=== PATIENT | female | born 1945 | race Caucasian/White ===

== ENCOUNTER 2021-12-25 14:02 | Outpatient (CLI) | payer MEDICARE, OTHER, SELFPAY ==
--- NOTE | 2021-12-25 14:00 | CRLHL7_ITS ---
For Patients: As a result of the Century Cures Act, medical imaging exams and procedure reports are released immediately into your electronic medical record. You may view this report before your referring provider. If you have questions, please contact your health care provider. INDICATION: Swelling of right arm. TECHNIQUE: Ultrasound venous duplex upper right extremity. Compression venous exam was performed using bain-scale, color Doppler, and spectral Doppler imaging. COMPARISON: None. FINDINGS: The right internal jugular, subclavian, and axillary veins are patent with normal waveforms. The brachial, basilic, and cephalic veins are fully compressible. No soft tissue abnormalities. IMPRESSION: No DVT of the right upper extremity veins. Dictated by Nitish Bryson MD @ 12/25/2021 3:24:41 PM (Electronically Signed)
--- OUTSIDE RECORDS SUMMARY | 2021-12-25 14:06 | XMS_ITS ---
:1945 Author Care Team Providers Name Role Phone Zhen Galicia Primary Care Provider Unavailable Allergies None recorded. Medications Name Status Start Date Stop Date ? ? alendronate 70 mg tablet Active ? Not yuval ilable atenolol 25 mg tablet Active ? Not availa ble cephalexin 500 mg capsule Active ? Not av ailable cevimeline 30 mg capsule Active ? Not yuval ilable clopidogrel 75 mg tablet Active ? Not yuval ilable Flublok Quad 2819-9874 (PF) 180 mcg (45 mcg x 4)/0.5 mL IM Activ e ? Not available syringe gabapentin 600 mg tablet Active ? Not yuval ilable lansoprazole 30 mg capsule,delayed release Active ? Not available losartan 25 mg tablet Active ? Not availa ble metformin 500 mg tablet Active ? Not avai lable prednisolone acetate 1 % eye drops,suspension Active ? Not available rosuvastatin 40 mg tablet Active ? Not av ailable Problems None recorded. Procedures None recorded. Results Lab Results None recorded. Past Encounters None recorded. Social History None recorded. Vaccine List None recorded. Plan of Care Reminders Provider Appointments None recorded. ? ? Lab None recorded. ? ? Referral None recorded. ? ? Procedures None recorded. ? ? Surgeries None recorded. ? ? Imaging None recorded. ? ? Vitals None recorded.
--- OUTSIDE RECORDS SUMMARY | 2021-12-25 14:06 | XMS_ITS | Clinical Summary ---
:1945 Author Organization [facility] Address [address] [place] [address] Care Team Providers Name Role Phone Jr Landeros MD Primary Care Provider [phone] Jr Landeros MD Unavailable Allergies Active Allergy Reactions Severity Noted Date Comments Atorvastatin Other (See Comments) 12/10/2015 Facial swelling Latex Hives, Itching 11/13/2005 Bandaids and other contact Lisinopril Cough 12/07/2015 Sulfa Drugs Hives 11/13/2005 Medications Medication Sig Dispensed Refills Start Date End Date Status ASPIRIN 81 MG OR 1 TABLET DAILY 0 Active TABSIndications: Unspecified cardiovascular disease, Mixed hyperlipidemia MUCINEX MAXIMUM 1 TABLET EVERY 28 0 08/10/2007 Active STRENGTH 1200 MG OR 12 HOURS [id number]: NEEDED Bronchitis acute ACCU-CHEK MULTICLIX TEST 1-2 TIMES 200 Each 0 08/16/2009 Active LANCETS DAILY MISCIndications: Type 2 diabetes, HbA1c goal < 7% (H) Blood Glucose 1 Bottle by In 1 Bottle 0 03/01/2012 Active Calibration (ACCU-CHEK Vitro route STEPHEN) SOLNIndications: daily as Type 2 diabetes, HbA1c needed. goal < 7% (H) Blood Glucose Use to test 1 kit 0 03/03/2012 Act efra Monitoring Suppl blood sugars (ACCU-CHEK STEPHEN PLUS) once daily as W/DEVICE directed. KITIndications: Type 2 diabetes, HbA1c goal < 7% (H) Glucose Blood 1 strip by In 100 strip 3 03/05/2012 A ctive (ACCU-CHEK STEPHEN) Vitro route STRPIndications: Type 2 daily as diabetes, HbA1c goal < needed. 7% (H) LANsoprazole (PREVACID) Take 2 capsules 180 capsule 1 07/17/19 13 Active 15 MG by mouth daily. capsuleIndications: Gastritis losartan (COZAAR) 25 MG Take 1 tablet 90 tablet 0 12/02/2012 Active tabletIndications: Type (25 mg) by 2 diabetes mellitus mouth daily with proteinuria or microalbuminuria, Unspecified cardiovascular disease atenolol (TENORMIN) 25 Take 1 tablet 180 tablet 0 12/14/2012 Active MG tabletIndications: (25 mg) by Unspecified mouth 2 times cardiovascular disease daily metFORMIN Take 2 tablets 180 tablet 0 01/10/2013 Act efra (GLUCOPHAGE-XR) 500 MG by mouth. Two 24 hr DAILY WITH MEAL tabletIndications: Type 2 diabetes, HbA1c goal < 7% (H) pravastatin (PRAVACHOL) Take 1 tablet 90 tablet 0 01/25/2013 Active 40 MG (40 mg) by tabletIndications: mouth daily Hyperlipidemia LDL goal <100 alendronate (FOSAMAX) Take 70 mg by 0 10/11/2019 Active 70 MG tablet mouth cevimeline (EVOXAC) 30 0 04/10/2020 Active MG capsule cholecalciferol 25 MCG Take 1 tablet 0 10/11/2019 Active (1000 UT) TABS by mouth daily gabapentin (NEURONTIN) 600 mg by mouth 180 tablet 3 06/03/2021 Active 600 MG twice per day. tabletIndications: Pain of right upper arm Active Problems Problem Noted Date Status post insertion of drug-eluting stent into left anterior descending 05/24/2021 (LAD) artery for coronary artery disease Sjogren's syndrome 04/06/2019 Advanced directives, counseling/discussion 10/22/2010 Overview: Formatting of this note is dif ferent from the original. Advance Directive Problem List Overview: Name Relationship Phone Primary Health Care Agent Alternative Health Care Agent Patient states has Advance Directive and will bring in a copy to clinic. 10/22/2010 Type 2 diabetes, HbA1c goal < 7% 06/07/2009 Overview: BP 126/76 06/17/2009 GLC 145 06/05/2009 A1C 7.9 06/05/2009 LDL 94 06/05/2009 MICROL 67 06/05/2009 MICROALBUMIN 41.10 06/05/2009 HYPERLIPIDEMIA LDL GOAL <100 04/11/2009 Hereditary and idiopathic peripheral neuropathy 2006 Overview: Chemotherapy related ; breast cancer 199 8 and 2001- more so after second round Problem list name updated by automated p rocess. 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 Hypertensive kidney disease, stage 1 08/23/2002 Personal history of malignant neoplasm of breast Overview: Mastectomy and chemotherapy; Recurrence 2001; Chemo and radiation; Tamoxifen, now Arimedex; followed at [facility] Cardiovascular disease Overview: PTCA- age 42 Problem list name updated by automated p rocess. Provider to review Osteoporosis Overview: Fosamax Problem list name updated by automated p rocess. Provider to review Resolved Problems Problem Noted Date Resolved Date Type 2 diabetes, HbA1C goal < 8% 12/30/2009 010 Mixed hyperlipidemia 06/05/2009 Overview: Statin; Pravachol; Low HDL Immunizations Name Administration Dates Next Due Influenza (H1N1) 03/12/2009 Influenza (High Dose) 3 valent 12/10/2017, 12/23/2016, 12/16, vaccine 12/26/2013, 12/08/2013, 12/20/2012 Influenza (IIV3) PF 11/10/2011, 11/13/2010, 12/14/2009, 12/21/2007, 12/31/2006, 12/18/2005, 11/30/2005 Influenza Quad, Recombinant, pf(RIV4) 12/24/2018 (Flublok) Influenza, Quad, High Dose, Pf, 65yr+ 12/26/2020, 12/15/2019 (Fluzone HD) Pneumo Conj 13-V (2010&after) 03/09/2015 Pneumococcal 23 valent 12/10/2017, 04/08/2011, 12/19/2008 TD (ADULT, 7+) 04/13/2018, 05/31/2005, 04/23/2005 Tdap (Adacel,Boostrix) 01/09/2012, 08/10/2007 Zoster vaccine recombinant adjuvanted 03/30/2018, 12/10/2017 (SHINGRIX) Zoster vaccine, live 04/08/2011, 05/24/2008 Family History Medical History Relation Comments Spencer Brother Heart Disease Brother from a heart at [facility], [place]. Father Hypertension Father Cancer Maternal Grandfather unknown etiology Cancer Maternal Grandmother unknown etiology Respiratory Mother copd Cerebrovascular Disease Paternal Grandfather Relation Status Comments Brother (Age 27) Father (Age 58) Maternal Grandfather Maternal Grandmother Mother (Age 80) Paternal Grandfather Social History Tobacco Use Types Packs/Day Years Used Date Smoking Tobacco: Former Cigarettes Quit : 05/14/1988 Smokeless Tobacco: Never Tobacco Cessation: Counseling Given: No Alcohol Use Standard Drinks/Week Comments No 0 (1 standard drink = 0.6 oz pure alcoho l) Sex Assigned at Date Recorded Female 05/22/2021 3:03 PM CDT Last Filed Vital Signs Vital Sign Reading Time Taken Comments Blood Pressure 166/90 08/01/2021 12:01 PM CDT Pulse 66 08/01/2021 12:00 PM CDT Temperature 37.2 ??C (99 ??F) 08/01/2021 12:00 PM CDT Respiratory Rate 18 08/01/2021 12:00 PM CDT Oxygen Saturation 100% 08/01/2021 12:00 PM CDT Inhaled Oxygen Concentration - - Weight 71.2 kg (157 lb) 05/24/2021 7:59 AM CDT Height 165.1 cm (5' 5) 05/24/2021 7:59 AM CDT Body Mass Index 26.13 05/24/2021 7:59 AM CDT Plan of Treatment Health Maintenance Due Date Last Done Comments CT COLONOGRAPHY 1945 FIT-DNA (Cologuard) 1945 FIT 1945 FLEX SIG 1945 HEPATITIS C SCREENING 09/29/1963 MEDICARE ANNUAL WELLNESS 10/23/2011 10/22/2010, 06/05/2009, VISIT 05/24/2008, Additional history exists DIABETIC FOOT EXAM 07/13/2012 07/14/2011 COLONOSCOPY 08/22/2012 08/22/2002 COLORECTAL CANCER SCREENING 08/22/2012 A1C 10/10/2012 04/12/2012, 12/31/2011, 05/05/2011, Additional history exists MAMMO SCREENING 12/14/2012 12/15/2011, 11/05/2010, 07/05/2008, Additional history exists FALL RISK ASSESSMENT 12/30/2012 12/31/2011 BMP 04/12/2013 04/12/2012, 12/31/2011, 05/05/2011, Additional history exists LIPID 04/12/2013 04/12/2012, 12/31/2011, 05/05/2011, Additional history exists MICROALBUMIN 04/12/2013 04/12/2012, 12/31/2011, 05/05/2011, Additional history exists EYE EXAM 10/18/2013 10/18/2012, 08/19/2010 ADVANCE CARE PLANNING 10/23/2015 10/22/2010 COVID-19 Vaccine (4 - 01/25/2021 11/30/2020, 05/11/2020, Booster for Moderna series) 04/13/2020 PHQ-2 (once per calendar 03/02/2021 year) INFLUENZA VACCINE (#1) 2021 12/26/2020, 12/15/2019, 12/24/2018, Additional history exists ANNUAL REVIEW OF HM ORDERS 05/24/2022 05/24/2021 DEXA 07/06/2023 07/05/2008, 02/04/2006 DTAP/TDAP/TD IMMUNIZATION 04/13/2028 04/13/2018, 01/09/2012 , (6 - Td or Tdap) 08/10/2007, Additional history exists URINALYSIS Completed 12/31/2011 Pneumococcal Vaccine: 65+ Completed 12/10/2017, 03/09/2015 , Years 04/08/2011, Additional history exists ZOSTER IMMUNIZATION Completed 03/30/2018, 12/10/2017, 04/08/2011, Additional history exists IPV IMMUNIZATION Aged Out No longer eligi ble based on patient 's age to complete this topic MENINGITIS IMMUNIZATION Aged Out No longe r eligible based on patient 's age to complete this topic Insurance Payer Benefit Plan Subscriber ID Effective Phone Address Typ e / Group Dates ARY/KAYLA ROSA FOR [id number] 2010-Prese [phone] FOR Indemnity [place] LIFE nt 04 LIFE [address] [place] [address] MEDICARE MEDICARE [id number] 2010-Prese [phone] ATTN SHELIADwaine MS Medicare nt 40 [address] [place] [address] Care Teams Binder Chainstitch Relationship Specialty Start Date End Date Jr Landeros MD PCP - General Internal Medicine 05/24/21 [address] [place] [address] Jr Landeros MD Assigned PCP 05/26/21 [address] [place], [place] [id number]
--- OUTSIDE RECORDS SUMMARY | 2021-12-25 14:06 | XMS_ITS | Continuity of Care Document ---
:1945 Author Organization [facility] Address [address] [place] [id number] Care Team Providers Name Role Phone NO FAMILY, PHYSICIAN PER PATIENT Primary Care Physician Unav ailable Encounter Date(s): 12/22/21 - 12/22/[address] [address] Encounter Diagnosis Cellulitis (Discharge Diagnosis) - 12/22/21 Discharge Disposition: Home or Self Care Attending Physician: ROBBIE WITT MD Admitting Physician: ROBBIE WITT MD Allergies, Adverse Reactions, Alerts Substance Reaction Severity Status Latex Mild Active sulfa drugs Mild Active Normal Saline Flush Mild Active Medications doxycycline hyclate 100 mg oral capsule 100 mg = 1 caps, Oral, BID, X 10 days, # 20 caps, 0 Refill(s), Pharmacy: [id number], 165,cm, 12/22/21 9:20:00 MDT, Height/Length Dosing, 65.7, kg, 12/22/21 9:20:00 MDT, Weight Dosing Start Date: 12/22/21 Stop Date: 01/01/22 Status: Ordered Problem List Diagnosis Diagnosis Type Effective Dates Health Status Clinical Serv ice Informant Cellulitis Discharge 12/22/21 Non-Specified Diagnosis Vital Signs Most recent to oldest [Reference Range]: 1 2 Temperature Temporal Artery [36.3-37.8 DegC] 36.9 DegC 36 DegC (12/22/21 10:27 AM) *LOW* (12/22/21 9:20 AM) Peripheral Pulse Rate [60-100 bpm] 80 bpm 67 bp m (12/22/21 10:27 AM) (12/22/21 9:20 AM) Respiratory Rate [14-20 br/min] 18 br/min 18 br/mi n (12/22/21 10:27 AM) (12/22/21 9:20 AM) Blood Pressure [90-140/60-90 mmHg] 130/78 mmHg 143/5 9 mmHg (12/22/21 10:27 AM) *HI* (12/22/21 9:20 AM) Social History Social History Type Response Smoking Status Never (less than 100 in life time) entered on: 12/22/21 Sex Female Patient Care team information PersonnelName: NO FAMILY, PHYSICIAN PER PATIENT
--- OUTSIDE RECORDS SUMMARY | 2021-12-25 14:06 | XMS_ITS | Encounter Summary ---
:1945 Author Organization [facility] Address [address] [place] [address] Care Team Providers Name Role Phone Jr Landeros MD Primary Care Provider [phone] Jr Landeros MD Unavailable Encounter Details Date Type Department Care Team Description 08/01/2021 Travel Social History Tobacco Use Types Packs/Day Years Used Date Smoking Tobacco: Former Cigarettes Quit : 05/14/1988 Smokeless Tobacco: Never Alcohol Use Standard Drinks/Week Comments No 0 (1 standard drink = 0.6 oz pure alcoho l) Sex Assigned at Date Recorded Female 05/22/2021 3:03 PM CDT COVID-19 Exposure Response Date Recorded In the last 10 days, have you been in contact with No / Unsu re 08/01/2021 11:51 AM CDT someone who was confirmed or suspected to have Coronavirus/COVID-19? documented as of this encounter Plan of Treatment Not on filedocumented as of this encounter Visit Diagnoses Not on filedocumented in this encounter Care Teams Track Helper Relationship Specialty Start Date End Date Jr Landeros MD PCP - General Internal Medicine 05/24/[address] [place] [address] Jr Landeros MD Assigned PCP 05/26/[address] [id number] documented as of this encounter
--- OUTSIDE RECORDS SUMMARY | 2021-12-25 14:07 | XMS_ITS | Encounter Summary ---
:1945 Author Organization [facility] Address [address] [place] [address]. [place] [address] Care Team Providers Name Role Phone Tiffany Leonard MD Primary Care Provider [phone] Reason for Visit Rehab Therapy Cardiac Therapy (Routine) - Closed Specialty Diagnoses / Procedures Referred By Contact Refer red To Contact CARDIAC REHAB Diagnoses Medicare// NAY Requested order/recs [facility] Procedures EVALUATION [address] [facility] [address] [place] [address] Phone: Fax: Referral ID Status Reason Start Date Expiration Date Visits V isits Requested Authorized FR -CR Closed 12/18/2015 03/01/2016 36 36 ([id number]) Encounter Details Date Type Department Care Team Description 12/24/2015 Hospital Encounter [facility] Cardiac Big , Alex Mas MD [address] [facility] [address] [place] [address] and Pulmonary 1, Rh Cardiac Rehab Rehabilitation [facility] [address] [facility] [address] [place] [address] Social History Tobacco Use Types Packs/Day Years Used Date Smoking Tobacco: Former Cigarettes Quit : 05/14/1988 Smokeless Tobacco: Never Alcohol Use Standard Drinks/Week Comments No 0 (1 standard drink = 0.6 oz pure alcoho l) Sex Assigned at Date Recorded Female 05/22/2021 3:03 PM CDT documented as of this encounter Medications at Time of Discharge Medication Sig Dispensed Refills Start Date End Date ACCU-CHEK MULTICLIX TEST 1-2 TIMES 200 Each 0 08/16/2009 LANCETS MISCIndications: DAILY Type 2 diabetes, HbA1c goal < 7% (H) ASPIRIN 81 MG OR 1 TABLET DAILY 0 TABSIndications: Unspecified cardiovascular disease, Mixed hyperlipidemia atenolol (TENORMIN) 25 MG Take 1 tablet (25 180 tablet 0 tabletIndications: mg) by mouth 2 Unspecified times daily cardiovascular disease Blood Glucose Calibration 1 Bottle by In 1 Bottle 0 2011 (ACCU-CHEK STEPHEN) Vitro route daily SOLNIndications: Type 2 as needed. diabetes, HbA1c goal < 7% (H) Blood Glucose Monitoring Use to test blood 1 kit 0 04/2012 Suppl (ACCU-CHEK STEPHEN sugars once daily PLUS) W/DEVICE as directed. KITIndications: Type 2 diabetes, HbA1c goal < 7% (H) Glucose Blood (ACCU-CHEK 1 strip by In 100 strip 3 03/05/19 13 STEPHEN) STRPIndications: Vitro route daily Type 2 diabetes, HbA1c as needed. goal < 7% (H) LANsoprazole (PREVACID) Take 2 capsules by 180 capsule 1 15 MG capsuleIndications: mouth daily. Gastritis losartan (COZAAR) 25 MG Take 1 tablet (25 90 tablet 0 12/02 tabletIndications: Type 2 mg) by mouth daily diabetes mellitus with proteinuria or microalbuminuria, Unspecified cardiovascular disease metFORMIN (GLUCOPHAGE-XR) Take 2 tablets by 180 tablet 0 12/2012 500 MG 24 hr mouth. Two DAILY tabletIndications: Type 2 WITH MEAL diabetes, HbA1c goal < 7% (H) MUCINEX MAXIMUM STRENGTH 1 TABLET EVERY 12 28 0 07/31 1200 MG OR HOURS NEEDED [id number]: Bronchitis acute pravastatin (PRAVACHOL) Take 1 tablet (40 90 tablet 0 01/25 40 MG tabletIndications: mg) by mouth daily Hyperlipidemia LDL goal <100 ciprofloxacin (CIPRO) 500 Take 1 tablet by 6 tablet 0 12/0205/24/2021 MG tabletIndications: mouth 2 times Hemorrhagic cystitis daily. gabapentin (NEURONTIN) Take 3 tablets by 270 tablet 3 201106/03/2021 600 MG tabletIndications: mouth. Take 1 Unspecified hereditary tablet at noon and and idiopathic peripheral 2 at Bedtime neuropathy documented as of this encounter Plan of Treatment Not on filedocumented as of this encounter Visit Diagnoses Not on filedocumented in this encounter Care Teams Mental Hygiene Consultant Relationship Specialty Start Date End Date Tiffany Leonard MD PCP - General 04/16/01 05/23/21 documented as of this encounter
--- OUTSIDE RECORDS SUMMARY | 2021-12-25 14:07 | XMS_ITS | Encounter Summary ---
:1945 Author Organization [facility] Address [address] [place] [address]. [place] [address] Care Team Providers Name Role Phone Tiffany Leonard MD Primary Care Provider [phone] Reason for Visit Rehab Therapy Cardiac Therapy (Routine) - Closed Specialty Diagnoses / Procedures Referred By Contact Refer red To Contact CARDIAC REHAB Diagnoses Medicare// NAY Requested order/recs [facility] Procedures EVALUATION [address] [facility] [address] [place] [address] Phone: Fax: Referral ID Status Reason Start Date Expiration Date Visits V isits Requested Authorized FR -CR Closed 12/18/2015 03/01/2016 36 36 ([id number]) Encounter Details Date Type Department Care Team Description 01/21/2016 Hospital Encounter [facility] Cardiac Big , Alex Mas MD [address] [facility] [address] [facility] [address] [place] [address] and Pulmonary 1, Rh Cardiac Rehab Rehabilitation [facility] [address] [facility] [address] [place] [address] Social History Tobacco Use [...] 0 07/31 1200 MG OR HOURS NEEDED [id number]: Bronchitis acute pravastatin (PRAVACHOL) Take 1 tablet [...] on filedocumented in this encounter Care Teams Snath Handle Assembler Relationship Specialty Start Date End Date Tiffany Leonard MD PCP - General 04/16/01 05/23/21 documented as of this encounter
--- OUTSIDE RECORDS SUMMARY | 2021-12-25 14:07 | XMS_ITS | Encounter Summary ---
:1945 Author Organization [facility] Address [address] [place] [address] Care Team Providers Name Role Phone Jr Landeros MD Primary Care Provider [phone] Reason for Visit Reason Comments Musculoskeletal Problem right Encounter Details Date Type Department Care Team Description 05/24/2021 Office Visit [facility] Jr Landeros Monica n of right upper Clinic Darrian [place] MD arm (Primary Dx) [address] [place] [address] [phone] Social History Tobacco Use Types Packs/Day Years Used Date Smoking Tobacco: Former Cigarettes Quit : 05/14/1988 Smokeless Tobacco: Never Tobacco Cessation: Counseling Given: No Alcohol Use Standard Drinks/Week Comments No 0 (1 standard drink = 0.6 oz pure alcoho l) Sex Assigned at Date Recorded Female 05/22/2021 3:03 PM CDT COVID-19 Exposure Response Date Recorded In the last month, have you been in contact with No / Unsure 05/24/2021 7:37 AM CDT someone who was confirmed or suspected to have Coronavirus / COVID-19? documented as of this encounter Last Filed Vital Signs Vital Sign Reading Time Taken Comments Blood Pressure 140/79 05/24/2021 7:59 AM CDT Pulse 66 05/24/2021 7:59 AM CDT Temperature 36.8 ??C (98.2 ??F) 05/24/2021 7:59 AM CDT Respiratory Rate 20 05/24/2021 7:59 AM CDT Oxygen Saturation 98% 05/24/2021 7:59 AM CDT Inhaled Oxygen Concentration - - Weight 71.2 kg (157 lb) 05/24/2021 7:59 AM CDT Height 165.1 cm (5' 5) 05/24/2021 7:59 AM CDT Body Mass Index 26.13 05/24/2021 7:59 AM CDT documented in this encounter Patient Instructions Patient InstructionsCuJr carson MD - 05/24/2021 8:00 AM CDT Suspected muscular strain of lumbar extremity. We did elect proceed with conservative management at this time. Patient did defer any imaging. documented in this encounter Progress Notes Jr Landeros MD - 05/24/2021 8:00 AM CDT Assessment & Plan Pain of right upper arm At this time, patient has pain that is reproducible just distal to her right shoulder joint when abducting greater than 45 degrees. The remainder of her examination of her right shoulder and right upper extremity was unremarkable. I suspect that she has likely suffered a muscular strain as she does report that she has been doing continued exercises that she was taught in physical therapy for management of chronic right shoulder pain. Patient did express a concern that the pain in her arm could be related to metastatic disease. I did discuss with her that I have a low suspicion for this given that her pain is not constant and is only triggered by certain movements. Patient did decline any imaging at this time. We did like to proceed with a conservative treatment plan of heat over the affected extremity and the use of Tylenol for management of her discomfort. Patient will follow up in 2 weeks if her symptoms are not improving. 30 minutes spent on the date of the encounter doing chart review, history and exam, documentation and further activities per the note BMI: Estimated body mass index is 26.13 kg/m?? as calculated from the following: Height as of this encounter: 1.651 m (5' 5). Weight as of this encounter: 71.2 kg (157 lb). See Patient Instructions Return in about 2 weeks (around 06/07/2021), or if symptoms worsen or fail to improve. Jr Landeros MD [facility] is a 75 year old who presents for the following health issues: right arm pain Patient is a 75-year-old female who presents to the clinic with chief complaint of arm pain. She is previously known to me from a prior clinic. Patient has a history of lymphedema in her right arm that has been present since she did undergo a prior surgery related to treatment of breast cancer. She reports over the last 3 weeks she has had some pain located in the mid humeral region of her right arm. Her pain is not constant, and she does not recall any traumatic event or injury that triggered her discomfort. Her pain is exacerbated when trying to lift her arm up to shoulder level. She denies any numbness or tingling in the affected extremity. Patient has had no change in her lymphedema. She does state that it typically waxes and wanes. Patient is no longer using any compression wraps for treatment of this particular issue. She has not taken any medication for management of her discomfort. Her pain is nonradiating. Musculoskeletal Problem Associated symptoms include arthralgias. Review of Systems Constitutional: Negative. HENT: Negative. Respiratory: Negative. Cardiovascular: Positive for peripheral edema. Gastrointestinal: Negative. Genitourinary: Negative. Musculoskeletal: Positive for arthralgias. Skin: Negative. Neurological: Negative. Objective Blood pressure (!) 140/79, pulse 66, temperature 98.2 ??F (36.8 ??C), resp. rate 20, height 1.651 m (5' 5), weight 71.2 kg (157 lb), SpO2 98 %, not currently . Physical Exam Vitals and nursing note reviewed. Constitutional: Appearance: Normal appearance. HENT: Head: Normocephalic and atraumatic. Right Ear: Tympanic membrane, ear canal and external ear normal. Left Ear: Tympanic membrane, ear canal and external ear normal. Mouth/Throat: Mouth: Mucous membranes are moist. Pharynx: Oropharynx is clear. Eyes: Extraocular Movements: Extraocular movements intact. Conjunctiva/sclera: Conjunctivae normal. Pupils: Pupils are equal, round, and reactive to light. Cardiovascular: Rate and Rhythm: Normal rate and regular rhythm. Pulses: Normal pulses. Heart sounds: Normal heart sounds. Pulmonary: Effort: Pulmonary effort is normal. Breath sounds: Normal breath sounds. Abdominal: General: Bowel sounds are normal. Palpations: Abdomen is soft. Musculoskeletal: Right shoulder: Decreased range of motion (Pain associated with abduction greater than 45 degrees). Left shoulder: Normal. Skin: General: Skin is warm. Capillary Refill: Capillary refill takes less than 2 seconds. Neurological: General: No focal deficit present. Mental Status: She is alert and oriented to person, place, and time. Mental status is at baseline. documented in this encounter Plan of Treatment Not on filedocumented as of this encounter Visit Diagnoses Diagnosis Pain of right upper arm - Primary Pain in limb documented in this encounter Care Teams Watch Crystal Edge Grinder Relationship Specialty Start Date End Date Jr Landeros MD PCP - General Internal Medicine 05/24/21 [place] [address] documented as of this encounter
--- OUTSIDE RECORDS SUMMARY | 2021-12-25 14:07 | XMS_ITS | Encounter Summary ---
:1945 Author Organization [facility] Address [address] [place] [address]. [place] [address] Care Team Providers Name Role Phone Tiffany Leonard MD Primary Care Provider [phone] Reason for Visit Rehab Therapy Cardiac Therapy (Routine) - Closed Specialty Diagnoses / Procedures Referred By Contact Refer red To Contact CARDIAC REHAB Diagnoses Medicare// NAY Requested order/recs [facility] Procedures EVALUATION [address] [facility] [address] [place] [address] Phone: Fax: Referral ID Status Reason Start Date Expiration Date Visits V isits Requested Authorized FR -CR Closed 12/18/2015 03/01/2016 36 36 ([id number]) Encounter Details Date Type Department Care Team Description 01/09/2016 Hospital Encounter [facility] Cardiac Big , Alex Mas MD [address] [facility] [address] [place] [address] and Pulmonary 1, Rh Cardiac Rehab Rehabilitation [facility] [address] [facility] [address] [place] [address] Social History Tobacco Use [...] 0 07/31 1200 MG OR HOURS NEEDED [id number]: Bronchitis acute pravastatin (PRAVACHOL) Take 1 tablet [...] on filedocumented in this encounter Care Teams Automotive Upholsterer Relationship Specialty Start Date End Date Tiffany Leonard MD PCP - General 04/16/01 05/23/21 documented as of this encounter
--- OUTSIDE RECORDS SUMMARY | 2021-12-25 14:07 | XMS_ITS | Encounter Summary ---
:1945 Author Organization [facility] Address [address] [place] [address] Care Team Providers Name Role Phone Jr Landeros MD Primary Care Provider [phone] Jr Landeros MD Unavailable Reason for Visit Reason Onset Date Comments Medication Request 05/31/2021 Gabapentin 600 MG Encounter Details Date Type Department Care Team Description 05/31/[address] [facility] Jr Landeros ication Request Clinic Darrian [place] MD (Gabapentin 600 MG) [address] [place] [place] [address] [place], [place] [phone] (Wo rk) [id number] [phone] Social History Tobacco Use Types Packs/Day Years [...] / COVID-19? documented as of this encounter Miscellaneous Notes Telephone Encounter - Jr Landeros MD - 06/03/2021 8:55 AM CDT Rx submitted to pharmacy. Telephone Encounter - ShellieVui - 05/31/2021 1:33 PM CDT Patient calls to advise that the Gabapentin 600 MG one pill twice daily was not refilled as requested and sent to [facility]. Please send as soon as possible. Patient is aware that PCP is not in today and that it may not be addressed until next week. documented in this encounter Plan of Treatment Not on filedocumented as of this encounter Visit Diagnoses Diagnosis Pain of right upper arm - Primary Pain in limb documented in this encounter Care Teams Cartographic Technician Relationship Specialty Start Date End Date Jr Landeros MD PCP - General Internal Medicine 05/24/21 [address] [facility] [place] [id number] Jr Landeros MD Assigned PCP 05/26/21 [address] [address] documented as of this encounter
--- OUTSIDE RECORDS SUMMARY | 2021-12-25 14:07 | XMS_ITS | Encounter Summary ---
:1945 Author Organization [facility] Address [address] [place] [address] Care Team Providers Name Role Phone Tiffany Leonard MD Primary Care Provider [phone] Encounter Details Date Type Department Care Team Description 05/10/2021 Travel Social History Tobacco Use Types Packs/Day [...] been in contact with No / Unsure 05/10/2021 2:10 PM MEDICAL RECORD ADMINISTRATOR someone who was confirmed or suspected to have Coronavirus / COVID-19? documented as of this encounter Plan of Treatment Not on filedocumented as of this encounter Visit Diagnoses Not on filedocumented in this encounter Care Teams Product Marketing Executive Relationship Specialty Start Date End Date Tiffany Leonard MD PCP - General 04/16/01 documented as of this encounter
--- OUTSIDE RECORDS SUMMARY | 2021-12-25 14:07 | XMS_ITS | Encounter Summary ---
:1945 Author Organization [facility] Address [address] [place] [address]. [place] [address] Care Team Providers Name Role Phone Tiffany Leonard MD Primary Care Provider [phone] Reason for Visit Rehab Therapy Cardiac Therapy (Routine) - Closed Specialty Diagnoses / Procedures Referred By Contact Refer red To Contact CARDIAC REHAB Diagnoses Medicare// NAY Requested order/recs [facility] Procedures EVALUATION [address] [place] [address] Phone: Fax: Referral ID Status Reason Start Date Expiration Date Visits V isits Requested Authorized FR -CR Closed 12/18/2015 03/01/2016 36 36 ([id number]) Encounter Details Date Type Department Care Team Description 01/01/2016 Hospital Encounter [facility] Cardiac Big gs, Alex Mas MD [address] [facility] [address] [facility] [address] [place] [address] and Pulmonary 2, Rh Cardiac Rehab Rehabilitation [facility] [address] [facility] [address] [place] [address] Social History Tobacco Use Types Packs/Day Years Used Date Smoking Tobacco: Former Cigarettes Quit : 05/14/1988 Smokeless Tobacco: Never Alcohol Use Standard Drinks/Week Comments No 0 (1 standard drink = 0.6 oz pure alcoho l) Sex Assigned at Date Recorded Female 05/22/2021 3:03 PM CDT documented as of this encounter Last Filed Vital Signs Vital Sign Reading Time Taken Comments Blood Pressure - - Pulse - - Temperature - - Respiratory Rate - - Oxygen Saturation - - Inhaled Oxygen Concentration - - Weight 72.5 kg (159 lb 12.8 oz) 01/01/2016 10:00 AM CDT Height 165.1 cm (5' 5) 01/01/2016 10:00 AM CDT Body Mass Index 26.59 01/01/2016 10:00 AM CDT documented in this encounter Medications at Time of Discharge [...] 0 07/31 1200 MG OR HOURS NEEDED [id number]: Bronchitis acute pravastatin (PRAVACHOL) Take 1 tablet [...] Bedtime neuropathy documented as of this encounter Progress Notes King Martinez MD - 01/01/2016 11:28 AM CDT Mayra Quinn 70 year old 01/01/16 1000 Session Session 30 Day Individualized Treatment Plan Certified through this date 02/09/16 Cardiac Rehab Assessment Cardiac Rehab Assessment PT stated that over the last couple months she has had a couple of episodesof shortness of breath and lightheadedness that she initially attributed to her sugar being low. On the day of admission she experienced a 15 minute episode of lightheadedness while shopping. She also s tated her chest was tight and felt like she couldn't catch her breath. 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 01/01/2016 PT is progressing wiht the exercise levels without any sx. However, she does feel tired most days. Explained that this may be related to her medications, but will continue to monitor. PT was recently diagnosed with a bladder infection and was started on antibiotics. She has started a home exercise program and plans to log her diet as she would like to lose weight. Skilled therapy for structured exercise programto return PT to an active lifestyle with education/counseling for weight loss. General Information Treatment Diagnosis Stent (NAY to mid LAD) Date of Treatment Diagnosis 12/07/15 Secondary Treatment Diagnosis (None) Significant Past CV History Previous MO Comorbidities DM;Previous MO Other Medical History History of breast cancer s/p mastectomy and chemotherapy. 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 Lead up symptoms Lightheadedness, shortness of breath, and chest tightness. Hospital Location [facility] Discharge Date 12/11/15 Signs and Symptoms Post Hospital Discharge None Outpatient Cardiac Rehab Start Date 12/20/[address] Lainez Primary Physician Follow Up Scheduled Surgeon NA Assistant Spa Manager Bina Marie MD Ejection Fraction Normal per echo. 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 No Have you fallen and had an injury in the past year? No Timed up and go score if applicable No Referral Initiated to Physical Therapy No Pain Patient Currently in Pain Denies Physical Assessments Incisions WNL Edema None Right Lung Sounds not assessed Left Lung Sounds not assessed Limitations Other (see comments) (Nueropathy in feet due to chemo. ) Individualized Treatment Plan Monitored Sessions Scheduled 24 Monitored Sessions Attended 5 Oxygen Supplemental Oxygen needed No Nutrition Management - Weight Management Assessment Re-assessment Age 70 Weight 72.485 kg (159 lb 12.8 oz) Height 1.651 m (5' 5) BMI (Calculated) 26.65 Goal Weight 70.308 kg (155 lb) Initial Rate Your Plate Score. Dietary tool to assess eating patterns. Scores range from 24 to 72. The higher the score the healthier the eating pattern. 54 Weight Management Comments PT is working towards losing 10 pounds. 01/01/2016 Her weight is not changing, but she admits that there have been alot of celebrations recently that have impacted her weight.However, she only had a half of a cupcake instead of a whole one which was a change for her. She is planning to log her diet. Nutrition Management - Lipids Lipids Labs Not Available Prescribed Lipid Medication Yes Statin Intensity High Intensity Lipid Comments 01/01/2016 PT had lipid levels drawn in the past year. She will look for the results. Her HDL has always been low despite exercising. Nutrition Management - Diabetes Diabetes Type II Do you Monitor BS at Home? No Diabetes Medication Prescribed Yes, Oral Medication Hb A1C Date: 12/08/15 Hb A1C Result: 6.2 Diabetes Comments 01/01/2016 PT is on Metformin in the evening. She does not monitor BG at home, but keeps her CHO to 45 grams per meal. Nutrition Management Summary Dietary Recommendations Low Fat;Low Cholesterol;Low Sodium Stages of Change for Diet Compliance Action Interventions Planned Attend Nutrition Education Class(es);Complete Food Diary;Educate on Weight Management Principles Interventions In Progress or Completed Understands Weight Management Principles Patient Goals Goal #1 Goal #1 Description PT to combine diet and exercise modifications to lose at least 5 pounds before rehab is completed to decrease cardiac risk. Goal #1 Target Date 01/24/16 Goal #1 Progress Towards Goal 01/01/2016 Her weight is not changing. She is planning to log her diet.She has attended nutrition classes in the past and does not feel she needs any further information on diet. Nutrition Summary Comments 01/01/2016 See goal and weight management section. Nutrition Target Outcome Weight loss .5-1 lb/week (if BMI > 25);Hb A1C < 7.0 Psychosocial Management Psychosocial Assessment Re-assessment Is there history of clinical depression or increased risk of depression? No previous history Current Level of Stress per Patient Report Mild Current Coping Skills Other (see comments) (read) Initial Patient Health Questionnaire -9 Score (PHQ-9) for depression. 5-9 Minimal symptoms, 10-14 Minor depression, 15-19 Major depression, moderately severe, > 20 Major depression, severe 7 Initial [facility] [place] Survey score. Quality of Life: If total score > 25 review individual areaswhere patient rated a 4 or 5. Consider patients current medical condition and what role that plays on the score. Adjust treatment protocol to improve areas of concern. Consider the following: PHQ9 score, DASI, and re- assessment within the next 30 days to assist with developing treatments. 22 Stages of Change Action Interventions Planned Patient to verbalize understanding of behavioral assessment results;Patient toverbalize understanding of negative impact of stress to personal health Psychosocial Comments 01/01/2016 Did not discuss today. Psychosocial Target Outcome Maximize coping skills Other Core Components - Hypertension History of or Diagnosis of Hypertension No Currently taking Anti-Hypertensives Yes Hypertension Comments 01/01/2016 BP has been well-controlled. Other Core Components - Tobacco History of Tobacco Use Yes Quit Date or Planned Quit Date 03/02/87 Tobacco Habit Cigarettes Tobacco Use per Day (average) 20 Years of Tobacco Use 28 Stages of Change Maintenance Activity/Exercise History Activity/Exercise Assessment Re-assessment Activity/Exercise Status prior to event? Was Physically Active Number of Days Currently participating in Moderate Physical Activity? 5 Number of Days Currently performing Aerobic Exercise (including rehab)? 4 Number of Minutes per Session Currently of Aerobic Exercise (average)? 20-35 Current Stage of Change (Physical Activity) Maintenance Current Stage of Change (Aerobic Exercise) Preparation Patient Goals Goal #1 Goal #1 Description Per PT, to use home treadmill or walk outside for at least 30 minutes 1-2 additonal days per week to maximize weight loss goal. PT to [facility] prior to discharge to continue a home exercise program to decrease cardiac risk. Goal #1 Target Date 01/24/16 Goal #1 Progress Towards Goal 01/01/2016 PT has started to walk on her treadmill 2 days per week at home for 20 minutes. She also walked one day at the [facility]. She generally does at least 6000 steps per day. Encouraged her to increase her time on the treadmill to 25-30 minutes and she thought this was feasible. Activity/Exercise Comments PT plans to join the [facility]. PT does have a treadmill at home. Activity/Exercise Target Outcome An Accumulation of 150 Minutes of Aerobic Activity per Week Exercise Assessment 6 Minute Walk Predicted - Gender Selection Female 6 Minute Walk Predicted (Male) 1513.94 6 Minute Walk Predicted (Female) 1457.71 Initial 6 Minute Walk Distance (Feet) 1720 ft Resting HR 65 bpm Exercise HR 79 bpm Post Exercise HR 64 bpm Resting BP 120/78 mmHg Exercise BP 142/64 mmHg Post Exercise BP 122/62 mmHg Pre BG 113 mg/dL Post BG 77 mg/dL (Given juice post exercise. BG 125 when rechecked.) Effort Rating 5 Current MET Level 3.5 MET Level Goal 5-6 ECG Rhythm Sinus rhythm Ectopy None Current Symptoms Fatigue Limitations/Restrictions None Exercise Prescription Mode Treadmill;Recumbant bike Duration/Time 30-45 min Frequency 3 daysweek THR (85% of age predicted max HR) 127.5 OMNI Effort Rating (0-10 Scale) 4-6/10 Progression Continuous bouts;Progress peak intensity by 1/4 MET per week;Progress peak intensity by 1/2 MET per week;Total exercise time of 30-45 minutes;Aerobic exercise to OMNI rating of 6 or below and at or below THR Recommended Home Exercise Type of Exercise Walking;Treadmill Frequency (days per week) 2 Duration (minutes per session) 15-30 min Effort Rating Recommended 4-6/10 30 Day Exercise Plan PT plans to attend out-pt rehab for 1 week, then start home walking program on treadmill at comparable workloads to what is done in rehab. 01/01/2016 PT to walk 2 days per week on her TM increasing to 25-30 minutes. Current Home Exercise Type of Exercise Walking;Treadmill Frequency (days per week) 2 Duration (minutes per session) 20 Follow-up/On-going Support Provider follow-up needed on the following No follow-up needed Learning Assessment Learner Patient Primary Language Martiniquais Preferred Learning Style Reading Barriers to Learning No barriers noted Patient Education Education recommended Anatomy and Physiology of the Heart;Blood Pressure;Diabetes;Exercise Principles;Medication Overview;Muscle Conditioning;Nutrition;Risk Factors;Stress Management Physician cosignature/electronic signature indicates approval of this ITP document. I have established, reviewed and made necessary changes to the individualized treatment plan and exercise prescription for this patient. T OR NUT CROPS FARM MANAGER documented in this encounter Plan of Treatment Not on filedocumented as of this encounter Visit Diagnoses Not on filedocumented in this encounter Care Teams Coat Checker Relationship Specialty Start Date End Date Tiffany Leonard MD PCP - General 04/16/01 05/23/21 documented as of this encounter
--- OUTSIDE RECORDS SUMMARY | 2021-12-25 14:07 | XMS_ITS | Encounter Summary ---
:1945 Author Organization [place] Address [address] [place] [address]. [place] [address] Care Team Providers Name Role Phone Tiffany Leonard MD Primary Care Provider [phone] Reason for Visit Rehab Therapy Cardiac Therapy (Routine) - Closed Specialty Diagnoses / Procedures Referred By Contact Refer red To Contact CARDIAC REHAB Diagnoses Medicare// NAY Requested order/recs [facility] Procedures EVALUATION [address] [place] [address] Phone: Fax: Referral ID Status Reason Start Date Expiration Date Visits V isits Requested Authorized FR -CR Closed 12/18/2015 03/01/2016 36 36 ([id number]) Encounter Details Date Type Department Care Team Description 02/01/2016 Hospital Encounter [facility] Cardiac Big gs, Alex Mas MD [address] [facility] [address] [facility] [address] [place] [address] and Pulmonary 2, Rh Cardiac Rehab Rehabilitation [facility] [address] [facility] [address] [place] [address] Social History Tobacco Use [...] - Inhaled Oxygen Concentration - - Weight 71 kg (156 lb 9.6 oz) 02/01/2016 1:00 PM PICK PACK WORKER Height 165.1 cm (5' 5) 02/01/2016 1:00 PM PICK PACK WORKER Body Mass Index 26.06 02/01/2016 1:00 PM PICK PACK WORKER documented in this encounter Medications at Time [...] 0 07/31 1200 MG OR HOURS NEEDED [id number]: Bronchitis acute pravastatin (PRAVACHOL) Take 1 tablet [...] encounter Progress Notes King Martinez MD - 02/01/2016 3:06 PM CST Mayra Quinn 70 year old 1945 02/01/16 1300 Session Session Discharge Note Certified through this date 02/09/16 Cardiac Rehab [...] an active lifestyle with education/counseling for weight loss.01/11/16 Progress updated completed with 1:1 consult. PT is progressing well with patient plan of care - currently at 4.6 METs with exercise levels. She has lost 3# since initial visit. Discssed with PT rate your plate scoreand 3 day food log. BP has been higher the past couple of sessions. She still continues to feel fatigue during the day despite sleeping better and longer at night. Explained that this may be a side effect of the beta renee she is on. PT reports that she does not have any stress, and that living a busy life is enjoyable to her. Skilled therapy needed for monitoring BP, weight loss education, and behavior change counseling. 02/01/16 PT discharge today. PT has made great improvements with attending CR. She has met a personal goal of hers by losing 5# by dieting and exercising. She has been exercisingat a MET level of 5.7, achieving the goal determined from her 6 minute walk test. PT has been exercising on her TM at home for 30 minutes. PT feels that CR was very benefical for her to get back on track with exercising and eating healthier. PT was given handouts on aerobic exercise, muscle conditioning, and stretching. Discussed with PT proper levels she should be exercising at. She plans to continues walking on her home TM 3 to 4 days per week. All questions answered and PT discharged at this time. General Information Treatment Diagnosis Stent (NAY to mid LAD) Date of Treatment Diagnosis 12/07/15 Secondary Treatment Diagnosis (None) Significant Past CV History Previous [facility] Comorbidities DM;Previous [facility] Other Medical History History of breast cancer s/p mastectomy and chemotherapy. 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 Lead up symptoms Lightheadedness, shortness of breath, and chest tightness. Hospital Location [facility] Hospital Discharge Date 12/11/15 Signs and Symptoms Post Hospital Discharge None Outpatient Cardiac Rehab Start Date 12/20/[address] Lainez Primary Physician Follow Up Completed Surgeon NA Granite Countertop Installer Bina Marie MD Granite Countertop Installer Follow Up Completed Ejection Fraction Normal per echo. 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 ) Individualized Treatment Plan Monitored Sessions Scheduled 24 Monitored Sessions Attended 20 Oxygen Supplemental Oxygen needed No Nutrition Management - Weight Management Assessment Re-assessment Age 70 Weight 71.033 kg (156 lb 9.6 oz) Height 1.651 m (5' 5) BMI (Calculated) 26.11 Goal Weight 70.308 kg (155 lb) Initial Rate Your Plate Score. Dietary tool to assess eating patterns. Scores range from 24 to 72. The higher the score the healthier the eating pattern. 54 Discharge Rate Your Plate Score 61 Weight Management Comments PT is working towards losing 10 pounds. 01/01/2016 Her weight is not changing, but she admits that there have been alot of celebrations recently that have impacted her weight.However, she only had a half of a cupcake instead of a whole one which was a change for her. She is planning to log her diet.. 01/11/16 PT is down 3# since initial visit. Discussed with PT her rate your plate score and gave her a copy so she can make her own decisons on what to change in her diet. 02/01/16 PT is down 5# since initial visit. PT's rate your plate score has improved. Nutrition Management - Lipids Lipids Labs Available Date 12/31/15 Total Cholesterol 174 Triglycerides 199 HDL 34 LDL 100 Prescribed Lipid Medication Yes Statin Intensity High Intensity Lipid Comments 01/01/2016 PT had lipid levels drawn in the past year. She will look for the results. Her HDL has always been low despite exercising. 01/11/16 Did not discuss lipids today. 02/01/16 Discussed with PT what normal lipid levels are. Nutrition Management - Diabetes Diabetes Type II Do you Monitor BS at Home? No Diabetes Medication Prescribed Yes, Oral Medication Hb A1C Date: 12/08/15 Hb A1C Result: 6.2 Diabetes Comments 01/01/2016 PT is on Metformin in the evening. She does not monitor BG at home, but keeps her CHO to 45 grams per meal. 02/01/16 PT reports checking BG at home intermittently. Nutrition Management Summary Dietary Recommendations Low Fat;Low [...] feel she needs any further information on diet.01/11/16 PT is down 3 # since intial visit. Discussed 3 day food log and rate your plate scorewith PT. 02/01/16 GOAL ACHIEVED. Through diet and exercise PT has lost 5#. Her rate your plate score improved from 54 to 61 concluding she has made improvements towards a healthy diet. Nutrition Summary Comments 01/01/2016 See goal and weight management section. Nutrition Target Outcome Weight loss .5-1 lb/week (if BMI > 25);Hb A1C < 7.0 Psychosocial Management Psychosocial Assessment Discharge Is there history of clinical depression or increased risk of depression? No previous history Current Level of Stress per Patient Report Mild Current Coping Skills Other (see comments) (read) Initial Patient Health Questionnaire -9 Score (PHQ-9) for depression. 5-9 Minimal symptoms, 10-14 Minor depression, 15-19 Major depression, moderately severe, > 20 Major depression, severe 7 Discharge PHQ-9 Score for Depression 1 Initial [employer] COOP Survey score. Quality of Life: If total score > 25 review individual areaswhere patient rated a 4 or 5. Consider patients current medical condition and what role that plays on the score. Adjust treatment protocol to improve areas of concern. Consider the following: PHQ9 score, DASI, and re- assessment within the next 30 days to assist with developing treatments. 22 Discharge [employer] COOP Survey Score 13 Stages of Change Action Interventions Planned Patient to verbalize understanding of behavioral assessment results;Patient toverbalize understanding of negative impact of stress to personal health Interventions In Progress or Completed Patient verbalizes understanding of behavioral assessment scores;Patient verbalizes understanding of negative impact of stress to personal health Patient Goal No Psychosocial Comments 01/01/2016 Did not discuss today.01/11/16 PT denies feeling stressed. She likesto have a busy lifestyle. She has 8 grandchildren that live close to her that she likes to visit with. PT finds taking care of them fun not stressful. 02/01/16 PT's PHQ-9 and [employer] scores have improved from initial evaluation. Psychosocial Target Outcome Maximize coping skills Other Core Components - Hypertension History of or Diagnosis of Hypertension No Currently taking Anti-Hypertensives Yes Hypertension Comments 01/01/2016 BP has been well-controlled.01/11/16 Resting BP has been elevated over the past few sessions. PT reports drinking coffee before rehab which could contribute to high BP 02/01/16 Discussed BP response to exercise, and normal BP parameters. Other Core Components - Tobacco History of Tobacco Use Yes Quit Date or Planned Quit Date 03/02/87 Tobacco Habit Cigarettes Tobacco Use per Day (average) 20 Years of Tobacco Use 28 Stages of Change Maintenance Tobacco Comments 02/01/16 PT is abstaining from smoking. Activity/Exercise History Activity/Exercise Assessment Discharge Activity/Exercise Status prior to event? Was Physically Active Number of Days Currently participating in Moderate Physical Activity? 5 Number of Days Currently performing Aerobic Exercise (including rehab)? 5 Number of Minutes per Session Currently of Aerobic Exercise (average)? 40 Current Stage of Change (Physical Activity) Maintenance Current Stage of Change (Aerobic Exercise) Preparation Patient Goals Goal #1 Goal #1 Description Per PT, to use home treadmill or walk outside for at least 30 minutes 1-2 additonal days per week to maximize weight loss goal. PT to join [facility] prior to discharge to continue a home exercise program to decrease cardiac risk. Goal #1 Target Date 01/24/16 Goal #1 Progress Towards Goal 01/01/2016 PT has started to walk on her treadmill 2 days per week at home for 20 minutes. She also walked one day at the [employer] She generally does at least 6000 steps per day. Encouraged her to increase her time on the treadmill to 25-30 minutes and she thought this was feasible. 01/11/16 PT has reported not walking as much as she has in the past. 02/01/16 PT has been exercising for a half hour on TM at home on her off days from CR. Activity/Exercise Comments [facility] PT does have a treadmill at home. 02/01/16 PT will continue to exercise on her TM at home. PT is content with just exercising on the TM, she does not feel the need to join the senior center to use other exercise equipment. Activity/Exercise Target Outcome An Accumulation of 150 Minutes of Aerobic Activity per Week Exercise Assessment 6 Minute Walk Predicted - Gender Selection Female 6 Minute Walk Predicted (Male) 1522.34 6 Minute Walk Predicted (Female) 1468.64 Initial 6 Minute Walk Distance (Feet) 1720 ft Discharge 6 Minute Walk Distance (Feet) 1770 Resting HR 60 bpm Exercise HR 89 bpm Post Exercise HR 69 bpm Resting BP 120/78 mmHg Exercise BP 158/80 mmHg Post Exercise BP 122/62 mmHg Pre BG 134 mg/dL Post BG 99 mg/dL Effort Rating 5 Current MET Level 5.7 MET Level Goal 5-6 ECG Rhythm Sinus rhythm;Sinus bradycardia Ectopy None Current Symptoms Fatigue Limitations/Restrictions None Exercise Prescription Mode Treadmill;Recumbant bike Duration/Time 30-45 min Frequency 4 to 6 days week THR (85% of age predicted max HR) 127.5 OMNI Effort Rating (0-10 Scale) 4-6/10 Progression Continuous bouts;Progress peak intensity by 1/4 MET per week;Progress peak intensity by 1/2 MET per week;Total exercise time of 30-45 minutes;Aerobic exercise to OMNI rating of 6 or below and at or below THR Comments 02/01/16 PT will be using her TM at home for exercise. Encouraged PT to exercise 4-6 days a week. Recommended Home Exercise Type of Exercise Walking;Treadmill;Weights Frequency (days per week) 4-6 Duration (minutes per session) 30-45 min Effort Rating Recommended 4-6/10 30 Day Exercise Plan PT plans to attend out-pt rehab for 1 week, then start home walking program on treadmill at comparable workloads to what is done in rehab. 01/01/2016 PT to walk 2 days per week on her TM increasing to 25-30 minutes. 02/01/16 PT plans to exercise at home on her TM or outide 4-6 days a week. PT likes to exercise outside, discussed with PT the importance of exercising safely outside. Current Home Exercise Type of Exercise Walking;Treadmill Frequency (days per week) 2 Duration (minutes per session) 30 Follow-up/On-going Support Provider follow-up needed on the following No follow-up needed Learning Assessment Learner Patient Primary Language Arabic Preferred Learning Style Reading Barriers to Learning No barriers noted Patient Education Education recommended Anatomy and Physiology of the Heart;Blood Pressure;Diabetes;Exercise Principles;Medication Overview;Muscle Conditioning;Nutrition;Risk Factors;Stress Management Education classes attended Patient Declined/Refused All Education PACK WORKER documented in this encounter Miscellaneous Notes Addendum Note - Brenda Sarabia OT - 02/01/2016 11:59 PM CSTEncounter addended by: Brenda Sarabia OT on: 02/04/2016 11:42 AM
Documentation filed: Episodes PACK WORKER documented in this encounter Plan of Treatment Not on filedocumented as of this encounter Visit Diagnoses Not on filedocumented in this encounter Care Teams Fruit Buyer Relationship Specialty Start Date End Date Tiffany Leonard MD PCP - General 04/16/01 05/23/21 documented as of this encounter
--- OUTSIDE RECORDS SUMMARY | 2021-12-25 14:07 | XMS_ITS | Encounter Summary ---
:1945 Author Organization [facility] Address [address] [place] [address]. [place] [address] Care Team Providers Name Role Phone Tiffany Leonard MD Primary Care Provider [phone] Reason for Visit Rehab Therapy Cardiac Therapy (Routine) - Closed Specialty Diagnoses / Procedures Referred By Contact Refer red To Contact CARDIAC REHAB Diagnoses Medicare// NAY Requested order/recs [facility] Procedures EVALUATION 105 [facility] [address] [place] [address] Phone: Fax: Referral ID Status Reason Start Date Expiration Date Visits V isits Requested Authorized FR -CR Closed 12/18/2015 03/01/2016 36 36 ([id number]) Encounter Details Date Type Department Care Team Description 01/16/2016 Hospital Encounter [facility] Cardiac Big , Alex Mas MD [address] [facility] [address] [facility] [address] [place] [address] and Pulmonary 1, Rh Cardiac Rehab Rehabilitation [facility] [address] [facility] [address] [place] [address] Social History Tobacco Use [...] 0 07/31 1200 MG OR HOURS NEEDED [id number]: Bronchitis acute pravastatin (PRAVACHOL) Take 1 tablet [...] on filedocumented in this encounter Care Teams Casing Fluid Tender Relationship Specialty Start Date End Date Tiffany Leonard MD PCP - General 04/16/01 05/23/21 documented as of this encounter
--- OUTSIDE RECORDS SUMMARY | 2021-12-25 14:07 | XMS_ITS | Encounter Summary ---
:1945 Author Organization [facility] Address [address] [place] [address]. [place] [address] Care Team Providers Name Role Phone Tiffany Leonard MD Primary Care Provider [phone] Reason for Visit Rehab Therapy Cardiac Therapy (Routine) - Closed Specialty Diagnoses / Procedures Referred By Contact Refer red To Contact CARDIAC REHAB Diagnoses Medicare// NAY Requested order/recs [facility] Procedures EVALUATION 105 [facility] [address] [place] [address] Phone: Fax: Referral ID Status Reason Start Date Expiration Date Visits V isits Requested Authorized FR -CR Closed 12/18/2015 03/01/2016 36 36 ([id number]) Encounter Details Date Type Department Care Team Description 12/25/2015 Hospital Encounter [facility] Cardiac Big , Alex Mas MD [address] [facility] [address] [facility] 100 [place] [address] and Pulmonary 2, Rh Cardiac Rehab Rehabilitation [facility] [address] [facility] [address] [place] [address] Social History Tobacco Use [...] 0 07/31 1200 MG OR HOURS NEEDED [id number]: Bronchitis acute pravastatin (PRAVACHOL) Take 1 tablet [...] on filedocumented in this encounter Care Teams Research Kennel Supervisor Relationship Specialty Start Date End Date Tiffany Leonard MD PCP - General 04/16/01 05/23/21 documented as of this encounter
--- OUTSIDE RECORDS SUMMARY | 2021-12-25 14:07 | XMS_ITS | Encounter Summary ---
:1945 Author Organization [place] Address [address] [place] [address]. [place] [address] Care Team Providers Name Role Phone Tiffany Leonard MD Primary Care Provider [phone] Reason for Visit Rehab Therapy Cardiac Therapy (Routine) - Closed Specialty Diagnoses / Procedures Referred By Contact Refer red To Contact CARDIAC REHAB Diagnoses Medicare// NAY Requested order/recs [facility] Procedures EVALUATION 105 [facility] [address] [place] [address] Phone: Fax: Referral ID Status Reason Start Date Expiration Date Visits V isits Requested Authorized FR -CR Closed 12/18/2015 03/01/2016 36 36 ([id number]) Encounter Details Date Type Department Care Team Description 01/30/2016 Hospital Encounter [facility] Cardiac Big , Alex Mas MD [address] [facility] [address] [facility] [address] [place] [address] and Pulmonary 1, Rh Cardiac Rehab Rehabilitation [facility] [address] [facility] [address] [place] [address] Social History Tobacco Use [...] 0 07/31 1200 MG OR HOURS NEEDED [id number]: Bronchitis acute pravastatin (PRAVACHOL) Take 1 tablet [...] on filedocumented in this encounter Care Teams Executive Administrator Relationship Specialty Start Date End Date Tiffany Leonard MD PCP - General 04/16/01 05/23/21 documented as of this encounter
--- OUTSIDE RECORDS SUMMARY | 2021-12-25 14:07 | XMS_ITS | Encounter Summary ---
:1945 Author Organization [place] Address [address] [place] [address]. [place] [address] Care Team Providers Name Role Phone Tiffany Leonard MD Primary Care Provider [phone] Reason for Visit Rehab Therapy Cardiac Therapy (Routine) - Closed Specialty Diagnoses / Procedures Referred By Contact Refer red To Contact CARDIAC REHAB Diagnoses Medicare// NAY Requested order/recs [facility] Procedures EVALUATION 105 [facility] [address] [place] [address] Phone: Fax: Referral ID Status Reason Start Date Expiration Date Visits V isits Requested Authorized FR -CR Closed 12/18/2015 03/01/2016 36 36 ([id number]) Encounter Details Date Type Department Care Team Description 01/07/2016 Hospital Encounter [facility] Cardiac Big , Alex Mas MD [address] [facility] [address] [facility] 100 [place] [address] and Pulmonary 1, Rh Cardiac Rehab Rehabilitation [facility] [address] [facility] [address] [place] [address] Social History Tobacco Use [...] 0 07/31 1200 MG OR HOURS NEEDED [id number]: Bronchitis acute pravastatin (PRAVACHOL) Take 1 tablet [...] on filedocumented in this encounter Care Teams Motion Picture Actor Relationship Specialty Start Date End Date Tiffany Leonard MD PCP - General 04/16/01 05/23/21 documented as of this encounter
--- OUTSIDE RECORDS SUMMARY | 2021-12-25 14:07 | XMS_ITS | Encounter Summary ---
:1945 Author Organization [facility] Address [address] [place] [address] Care Team Providers Name Role Phone Jr Landeros MD Primary Care Provider [phone] Jr Landeros MD Unavailable Reason for Visit Reason Comments Cellulitis Encounter Details Date Type Department Care Team Description 08/01/2021 Emergency [facility] Emergency Dept [address] [place] [address] Social History Tobacco Use Types Packs/Day Years [...] have Coronavirus/COVID-19? documented as of this encounter Last Filed Vital Signs Vital Sign Reading Time Taken Comments Blood Pressure 166/90 08/01/2021 12:01 PM CDT Pulse 66 08/01/2021 12:00 PM CDT Temperature 37.2 ??C (99 ??F) 08/01/2021 12:00 PM CDT Respiratory Rate 18 08/01/2021 12:00 PM CDT Oxygen Saturation 100% 08/01/2021 12:00 PM CDT Inhaled Oxygen Concentration - - Weight - - Height - - Body Mass Index - - documented in this encounter Medications at Time of Discharge Medication Sig Dispensed Refills Start Date End Date ACCU-CHEK MULTICLIX TEST 1-2 TIMES 200 Each 0 08/16/2009 LANCETS MISCIndications: DAILY Type 2 diabetes, HbA1c goal < 7% (H) alendronate (FOSAMAX) 70 Take 70 mg by mouth 0 MG tablet ASPIRIN 81 MG OR 1 TABLET DAILY 0 TABSIndications: Unspecified cardiovascular disease, Mixed hyperlipidemia atenolol (TENORMIN) 25 MG Take 1 tablet (25 180 tablet 0 tabletIndications: mg) by mouth 2 Unspecified cardiovascular times daily disease Blood Glucose Calibration 1 Bottle by In 1 Bottle 0 2011 (ACCU-CHEK STEPHEN) Vitro route daily SOLNIndications: Type 2 as needed. diabetes, HbA1c goal < 7% (H) Blood Glucose Monitoring Use to test blood 1 kit 0 04/2012 Suppl (ACCU-CHEK STEPHEN sugars once daily PLUS) W/DEVICE as directed. KITIndications: Type 2 diabetes, HbA1c goal < 7% (H) cevimeline (EVOXAC) 30 MG 0 04/10/2020 capsule cholecalciferol 25 MCG Take 1 tablet by 0 020 (1000 UT) TABS mouth daily gabapentin (NEURONTIN) 600 600 mg by mouth 180 tablet 3 05/2021 MG tabletIndications: Pain twice per day. of right upper arm Glucose Blood (ACCU-CHEK 1 strip by In Vitro 100 strip 3 STEPHEN) STRPIndications: route daily as Type 2 diabetes, HbA1c needed. goal < 7% (H) LANsoprazole (PREVACID) 15 Take 2 capsules by 180 capsule 1 07/16/2012 MG capsuleIndications: mouth daily. Gastritis losartan (COZAAR) [...] 0 07/31 1200 MG OR HOURS NEEDED [id number]: Bronchitis acute pravastatin (PRAVACHOL) 40 Take 1 tablet (40 90 tablet 0 MG tabletIndications: mg) by mouth daily Hyperlipidemia LDL goal <100 documented as of this encounter ED Notes Erin Manley RN - 08/01/2021 11:59 AM CDT Redness to right arm. Pt noticed the redness this morning. States she gets this every year to year and a half. Denies known fevers. Denies known injury documented in this encounter Plan of Treatment Not on filedocumented as of this encounter Visit Diagnoses Not on filedocumented in this encounter Care Teams Venue Coordinator Relationship Specialty Start Date End Date Jr Landeros MD PCP - General Internal Medicine 05/24/21 [address] [place], [place] [address] Jr Landeros MD Assigned PCP 05/26/21 [address] [address] documented as of this encounter
--- OUTSIDE RECORDS SUMMARY | 2021-12-25 14:07 | XMS_ITS | Encounter Summary ---
:1945 Author Organization [place] Address [address] [place] [address] Care Team Providers Name Role Phone Tiffany Leonard MD Primary Care Provider [phone] Reason for Visit Rehab Therapy Cardiac Therapy (Routine) - Closed Specialty Diagnoses / Procedures Referred By Contact Refer red To Contact CARDIAC REHAB Diagnoses Medicare// NAY Requested order/recs [facility] Procedures EVALUATION [address] [place] [address] [address] [place] [address] Phone: Fax: Referral ID Status Reason Start Date Expiration Date Visits V isits Requested Authorized FR -CR Closed 12/18/2015 03/01/2016 36 36 ([id number]) Encounter Details Date Type Department Care Team Description 12/28/2015 Hospital Encounter [facility] Admit, Dr Srinivasan Cardiac and Pulmonary [facility], [facility] [address] [place] [address] Rehabilitation 1, Rh Cardiac Rehab [place] [id number] [place] [address] [address] [place] [address] Social History Tobacco Use Types Packs/Day Years [...] MUCINEX MAXIMUM STRENGTH 1 TABLET EVERY 12 0 07/31 1200 MG OR HOURS NEEDED [id number]: Bronchitis acute pravastatin (PRAVACHOL) Take 1 tablet [...] on filedocumented in this encounter Care Teams Private Wealth Advisor Relationship Specialty Start Date End Date Tiffany Leonard MD PCP - General 04/16/01 05/23/21 documented as of this encounter
--- OUTSIDE RECORDS SUMMARY | 2021-12-25 14:07 | XMS_ITS | Encounter Summary ---
:1945 Author Organization [place] Address [address] [place] [address]. [place] [address] Care Team Providers Name Role Phone Tiffany Leonard MD Primary Care Provider [phone] Reason for Visit Rehab Therapy Cardiac Therapy (Routine) - Closed Specialty Diagnoses / Procedures Referred By Contact Refer red To Contact CARDIAC REHAB Diagnoses Medicare// NAY Requested order/recs [facility] Procedures EVALUATION [address] [facility] [address] [place] [address] Phone: Fax: Referral ID Status Reason Start Date Expiration Date Visits V isits Requested Authorized FR -CR Closed 12/18/2015 03/01/2016 36 36 ([id number]) Encounter Details Date Type Department Care Team Description 01/18/2016 Hospital Encounter [facility] Cardiac Big , Alex aMs MD [address] [facility] [address] [facility] [address] [place] [address] and Pulmonary 1, Rh Cardiac Rehab Rehabilitation [facility] [address] [facility] [address] [place] [address] Social History Tobacco Use [...] 0 07/31 1200 MG OR HOURS NEEDED [id number]: Bronchitis acute pravastatin (PRAVACHOL) Take 1 tablet [...] on filedocumented in this encounter Care Teams Respiratory Supervisor Relationship Specialty Start Date End Date Tiffany Leonard MD PCP - General 04/16/01 05/23/21 documented as of this encounter
--- OUTSIDE RECORDS SUMMARY | 2021-12-25 14:07 | XMS_ITS | Encounter Summary ---
:1945 Author Organization [place] Address [address] [place] [address]. [place] [address] Care Team Providers Name Role Phone Tiffany Leonard MD Primary Care Provider [phone] Reason for Visit Rehab Therapy Cardiac Therapy (Routine) - Closed Specialty Diagnoses / Procedures Referred By Contact Refer red To Contact CARDIAC REHAB Diagnoses Medicare// NAY Requested order/recs [facility] Procedures EVALUATION [address] [place] [address] [address] [place] [address] Phone: Fax: Referral ID Status Reason Start Date Expiration Date Visits V isits Requested Authorized FR -CR Closed 12/18/2015 03/01/2016 36 36 ([id number]) Encounter Details Date Type Department Care Team Description 01/04/2016 Hospital Encounter [facility] Cardiac Big , Alex Mas MD [address] [facility] [address] [place] [address] and Pulmonary 1, Rh Cardiac Rehab Rehabilitation [facility] [address] [facility] [address] [place] [address] Social History Tobacco Use [...] 0 07/31 1200 MG OR HOURS NEEDED [id number]: Bronchitis acute pravastatin (PRAVACHOL) Take 1 tablet [...] on filedocumented in this encounter Care Teams Bevel Mill Operator Relationship Specialty Start Date End Date Tiffany Leonard MD PCP - General 04/16/01 05/23/21 documented as of this encounter
--- OUTSIDE RECORDS SUMMARY | 2021-12-25 14:07 | XMS_ITS | Encounter Summary ---
:1945 Author Organization [place] Address [address] [place] [address] Care Team Providers Name Role Phone Tiffany Leonard MD Primary Care Provider [phone] Reason for Visit Rehab Therapy Cardiac Therapy (Routine) - Closed Specialty Diagnoses / Procedures Referred By Contact Refer red To Contact CARDIAC REHAB Diagnoses Medicare// NAY Requested order/recs [facility] Procedures EVALUATION [address] [place] [address] [place] [address] Phone: Fax: Referral ID Status Reason Start Date Expiration Date Visits V isits Requested Authorized FR -CR Closed 12/18/2015 03/01/2016 36 36 ([id number]) Encounter Details Date Type Department Care Team Description 12/20/2015 Hospital Encounter [facility] Admit, Dr Srinivasan Cardiac and Pulmonary [facility], [facility] [address] [place] [address] Rehabilitation 2, Rh Cardiac Rehab [place] [id number] [place] [address] [address] [place] [address] Social History Tobacco Use Types [...] - Inhaled Oxygen Concentration - - Weight 73.2 kg (161 lb 6.4 oz) 12/20/2015 12:00 PM CDT Height 165.1 cm (5' 5) 12/20/2015 12:00 PM CDT Body Mass Index 26.86 12/20/2015 12:00 PM CDT documented in this encounter Medications at [...] 0 07/31 1200 MG OR HOURS NEEDED [id number]: Bronchitis acute pravastatin (PRAVACHOL) Take 1 tablet [...] documented as of this encounter Progress Notes Mayra Taylor, EVER - 12/20/2015 3:45 PM CDT 12/20/15 1200 Session Mayra Quinn 70 year old Session Initial Evaluation and Exercise Prescription Certified through this date 01/18/16 Cardiac Rehab Assessment I have established, reviewed and made necessary changes to the individualized treatment plan and exercise prescription for this patient. Physician Name (printed): Date: Time: Physician Signature: Cardiac Rehab Assessment PT stated that over [...] of left main, and right coronary arteries. A NAY was placed to prox-mid LAD. PT is motivated to lose weight and establish a chcf exercise program to decrease future disease progression. The patient's history and clinical status including hemodynamics and ECG were evaluated. The patientwas assessed to be stable and appropriate to begin exercise. The patient's functional capacity and exercise prescription were determined by the completion of the 6 minute walk test. See results below. The patient was oriented to the program. Risk factor profile was completed. Goals and objectives werediscussed. CV response was WNL. No symptoms, complaints or pain were reported. Good prognosis for reaching above goals. Skilled therapy is necessary in order to monitor CV response to exercise, to provide education on risk factors and behavior change counseling needed to achieve patient's goals. Plan to progress to 30-40 minutes of exercise prior to discharge from cardiac rehab. Initial THR of 20-30 beats above RHR; Effort rating of 4-6. Initiate muscle conditioning as appropriate. Provide risk factor education and behavior change counseling. General Information Treatment Diagnosis Stent (NAY to mid LAD) Date of Treatment Diagnosis 12/07/15 Secondary Treatment Diagnosis (None) Significant Past CV History Previous [place] Comorbidities DM;Previous [place] Other Medical History History of breast cancer s/p mastectomy and chemotherapy. 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 Lead up symptoms Lightheadedness, shortness of breath, and chest tightness. Hospital Location [facility] Hospital Discharge Date 12/11/15 Signs and Symptoms Post Hospital Discharge None Outpatient Cardiac Rehab Start Date 12/20/[address] Lainez Primary Physician Follow Up Scheduled Surgeon NA Life Science Teacher Bina Marie MD Ejection Fraction Normal per echo. 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 No Have you fallen and had an injury in the past year? No Timed up and go score if applicable No Referral Initiated to Physical Therapy No Pain Patient Currently in Pain Denies Physical Assessments Incisions WNL Edema None Right Lung Sounds normal Left Lung Sounds normal Limitations Other (see comments) (Nueropathy in feet due to chemo. ) Individualized Treatment Plan Monitored Sessions Scheduled 24 Monitored Sessions Attended 1 Oxygen Supplemental Oxygen needed No Nutrition Management - Weight Management Assessment Initial Assessment Age 70 Weight 73.211 kg (161 lb 6.4 oz) Height 1.651 m (5' 5) BMI (Calculated) 26.91 Goal Weight 70.308 kg (155 lb) Initial Rate Your Plate Score. Dietary tool to assess eating patterns. Scores range from 24 to 72. The higher the score the healthier the eating pattern. 54 Weight Management Comments PT is working towards losing 10 pounds. Nutrition Management - Lipids Lipids Labs Not Available Prescribed Lipid Medication Yes Statin Intensity High Intensity Nutrition Management - Diabetes Diabetes Type II Do you Monitor BS at Home? No Diabetes Medication Prescribed Yes, Oral Medication Hb A1C Date: 12/08/15 Hb A1C Result: 6.2 Nutrition Management Summary Dietary Recommendations Low Fat;Low Cholesterol;Low Sodium Stages of Change for Diet Compliance Action Interventions Planned Attend Nutrition Education Class(es) Interventions In Progress or Completed Attended Nutrition Class(es) Patient Goals Goal #1 Goal #1 Description PT to combine diet and exercise modifications to lose at least 5 pounds before rehab is completed to decrease cardiac risk. Goal #1 Target Date 01/24/16 Nutrition Target Outcome Weight loss .5-1 lb/week (if BMI > 25);Hb A1C < 7.0 Psychosocial Management Psychosocial Assessment Initial Is there history of clinical depression or increased risk of depression? No previous history Current Level of Stress per Patient Report Mild Current Coping Skills Other (see comments) (read) Initial Patient Health Questionnaire -9 Score (PHQ-9) for depression. 5-9 Minimal symptoms, 10-14 Minor depression, 15-19 Major depression, moderately severe, > 20 Major depression, severe 7 Initial [facility] COOP Survey score. Quality of Life: If [...] impact of stress to personal health Psychosocial Target Outcome Maximize coping skills Other Core Components - Hypertension History of or Diagnosis of Hypertension No Currently taking Anti-Hypertensives Yes Other Core Components - Tobacco History of Tobacco Use Yes Quit Date or Planned Quit Date 03/02/87 Tobacco Habit Cigarettes Tobacco Use per Day (average) 20 Years of Tobacco Use 28 Stages of Change Maintenance Activity/Exercise History Activity/Exercise Assessment Initial Activity/Exercise Status prior to event? Was Physically Active Number of Days Currently participating in Moderate Physical Activity? 5 Number of Days Currently performing Aerobic Exercise (including rehab)? 0 Number of Minutes per Session Currently of Aerobic Exercise (average)? 0 Current Stage of Change (Physical Activity) Maintenance Current Stage of Change (Aerobic Exercise) Preparation Patient Goals Goal #1 Goal #1 Description Per PT, to use home treadmill or walk outside for at least 30 minutes 1-2 additonal days per week to maximize weight loss goal. PT to join [facility] prior to discharge to continue a home exercise program to decrease cardiac risk. Goal #1 Target Date 01/24/16 Activity/Exercise Comments PT plans to join the [facility]. PT does have a treadmill at home. Activity/Exercise Target Outcome An Accumulation of 150 Minutes of Aerobic Activity per Week Exercise Assessment 6 Minute Walk Predicted - Gender Selection Female 6 Minute Walk Predicted (Male) 1509.74 6 Minute Walk Predicted (Female) 1452.25 Initial 6 Minute Walk Distance (Feet) 1720 ft Resting HR 70 bpm Exercise HR 94 bpm Post Exercise HR 70 bpm Resting BP 102/64 mmHg Exercise BP 154/68 mmHg Post Exercise BP 110/66 mmHg Pre BG 141 mg/dL Post BG 113 mg/dL Effort Rating 4 Current MET Level 3.5 MET Level Goal 5-6 ECG Rhythm Sinus rhythm Ectopy None Current Symptoms Denies symptoms Limitations/Restrictions None Exercise Prescription Mode Treadmill;Recumbant bike Duration/Time 15-30 min Frequency 3 daysweek THR (85% of age predicted max HR) 127.5 OMNI Effort Rating (0-10 Scale) 4-6/10 Progression Continuous bouts;Total exercise time of 20-30 minutes;Aerobic exercise to OMNI rating of5-7, and heart rate at or below target;Progress peak intensity by 1/4 MET per week;Progress peak intensity by 1/2 MET per week Recommended Home Exercise Type of Exercise Walking;Treadmill Frequency (days per week) 1-2 Duration (minutes per session) 15-30 min Effort Rating Recommended 4-6/10 30 Day Exercise Plan PT plans to attend out-pt rehab for 1 week, then start home walking program on treadmill at comparable workloads to what is done in rehab. Current Home Exercise Type of Exercise None Frequency (days per week) 0 Duration (minutes per session) 0 Learning Assessment Learner Patient Primary Language Mongolian Preferred Learning Style Reading Barriers to Learning No barriers noted Patient Education Education recommended Anatomy and Physiology of the Heart;Blood Pressure;Diabetes;Exercise Principles;Medication Overview;Muscle Conditioning;Nutrition;Risk Factors;Stress Management documented in this encounter Plan of Treatment Not on filedocumented as of this encounter Visit Diagnoses Not on filedocumented in this encounter Care Teams Ballet Dancer Relationship Specialty Start Date End Date Tiffany Leonard MD PCP - General 04/16/01 05/23/21 documented as of this encounter
--- OUTSIDE RECORDS SUMMARY | 2021-12-25 14:07 | XMS_ITS | Encounter Summary ---
:1945 Author Organization [facility] Address [address] [place] [address] Care Team Providers Name Role Phone Tiffany Leonard MD Primary Care Provider [phone] Reason for Visit Rehab Therapy Cardiac Therapy (Routine) - Closed Specialty Diagnoses / Procedures Referred By Contact Refer red To Contact CARDIAC REHAB Diagnoses Medicare// NAY Requested order/recs [facility] Procedures EVALUATION [address] [place] [address] [place] [address] Phone: Fax: Referral ID Status Reason Start Date Expiration Date Visits V isits Requested Authorized [facility] -CR Closed 12/18/2015 03/01/2016 36 36 ([id number]) Encounter Details Date Type Department Care Team Description 01/11/2016 Hospital Encounter [facility] Admit, Dr Srinivasan Cardiac and Pulmonary [facility], [facility] [address] [place] [address] Rehabilitation 1, Rh Cardiac Rehab [place] [id number] [place] [address] [address] [place] [address] Social History Tobacco Use Types [...] 0 07/31 1200 MG OR HOURS NEEDED [id number]: Bronchitis acute pravastatin (PRAVACHOL) Take 1 tablet [...] on filedocumented in this encounter Care Teams Patient Accounts Coordinator Relationship Specialty Start Date End Date Tiffany Leonard MD PCP - General 04/16/01 05/23/21 documented as of this encounter
--- OUTSIDE RECORDS SUMMARY | 2021-12-25 14:07 | XMS_ITS | Encounter Summary ---
:1945 Author Organization [place] Address [address] [place] [address] Care Team Providers Name Role Phone Tiffany Leonard MD Primary Care Provider [phone] Encounter Details Date Type Department Care Team Description 05/15/2020 Travel Social History Tobacco Use Types Packs/Day [...] been in contact with No / Unsure 05/15/2020 9:10 PM CDT someone who was confirmed or suspected to have Coronavirus / COVID-19? documented as of this encounter Plan of Treatment Not on filedocumented as of this encounter Visit Diagnoses Not on filedocumented in this encounter Care Teams Porcelain Buildup Assistant Relationship Specialty Start Date End Date Tiffany Leonard MD PCP - General 04/16/01 documented as of this encounter
--- OUTSIDE RECORDS SUMMARY | 2021-12-25 14:07 | XMS_ITS | Encounter Summary ---
:1945 Author Organization [place] Address [address] [place] [address]. [place] [address] Care Team Providers Name Role Phone Tiffany Leonard MD Primary Care Provider [phone] Reason for Visit Rehab Therapy Cardiac Therapy (Routine) - Closed Specialty Diagnoses / Procedures Referred By Contact Refer red To Contact CARDIAC REHAB Diagnoses Medicare// NAY Requested order/recs [facility] Procedures EVALUATION 105 [facility] [address] [place] [address] Phone: Fax: Referral ID Status Reason Start Date Expiration Date Visits V isits Requested Authorized FR -CR Closed 12/18/2015 03/01/2016 36 36 ([id number]) Encounter Details Date Type Department Care Team Description 01/11/2016 Hospital Encounter [facility] Cardiac Big , Alex Mas MD [address] [facility] [address] [facility] [address] [place] [address] and Pulmonary 1, Rh Cardiac Rehab Rehabilitation [facility] [address] [facility] [address] [place] [address] Social History Tobacco Use [...] 0 07/31 1200 MG OR HOURS NEEDED [id number]: Bronchitis acute pravastatin (PRAVACHOL) Take 1 tablet [...] documented as of this encounter Progress Notes Brenda Sarabia, OT - 01/11/2016 11:14 AM CST 01/11/16 1000 Session Session Progress Update Certified through this date 02/09/16 Cardiac Rehab [...] lifestyle with education/counseling for weight loss.01/11/16 Progress update completed with 1:1 consult today. PT is progressing well with patient plan of care-currently at 4.6 METs with exercise levels. She has lost 3# since initial visit. Disucssed with PT rate your plate score and 3 day food log. BP has been higher the past couple week. She still continues to feel fatigueduring the day despite sleeping better and longer at night. Explained that this may be a side effectof the beta renee she is on. PT reports that she does not have any stress, and that living a busy life is enjoyable to her. Skilled therapy needed for monitoring BP, weight loss education, and behavior change counseling. General Information Treatment Diagnosis Stent (NAY to mid LAD) Date of Treatment Diagnosis 12/07/15 Secondary Treatment Diagnosis (None) Significant Past CV History Previous [place] Comorbidities DM;Previous [place] Other Medical History History of breast cancer s/p mastectomy and chemotherapy. 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 Lead up symptoms Lightheadedness, shortness of breath, and chest tightness. Hospital Location [facility] Hospital Discharge Date 12/11/15 Signs and Symptoms Post Hospital Discharge None Outpatient Cardiac Rehab Start Date 12/20/[address] 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 Nutrition Management - Lipids Lipids Labs Not Available Prescribed Lipid Medication Yes Statin Intensity High Intensity Lipid Comments 01/01/2016 PT had lipid levels drawn in the past year. She will look for the results. Her HDL has always been low despite exercising. 01/11/16 Did not discuss lipids today. Nutrition Management - Diabetes Diabetes Type II [...] log and rate your plate scorewith PT. Nutrition Summary Comments 01/01/2016 See goal and [...] > 20 Major depression, severe 7 [facility]. Quality of Life: If total [...] health Psychosocial Comments 01/01/2016 Did not discuss today.01/11/16 PT denies feeling stressed. She likesto have a busy lifestyle. She has 8 grandchildren that live close to her that she likes to visit with. PT finds taking care of them fun not stressful. Psychosocial Target Outcome Maximize coping skills Other Core Components - Hypertension History of or Diagnosis of Hypertension No Currently taking Anti-Hypertensives Yes Hypertension Comments 01/01/2016 BP has been well-controlled.01/11/16 Resting BP has been elevated over the past few sessions. PT reports drinking coffee before rehab which could contribute to high BP. Will continue to monitor. Other Core Components - Tobacco History of [...] maximize weight loss goal. [facility] to continue a home exercise program to decrease cardiac risk. Goal #1 Target Date 01/24/16 Goal #1 Progress Towards Goal 01/01/2016 PT has started to walk on her treadmill 2 days per week at home for 20 minutes. She also walked one day at the [employer]. She generally does at least 6000 steps per day. Encouraged her to increase her time on the treadmill to 25-30 minutes and she thought this was feasible. 01/11/16 PT has reported not walking as much as she has in the past. Activity/Exercise Comments [facility] PT does have a treadmill at home. Activity/Exercise Target Outcome An Accumulation of 150 Minutes of Aerobic Activity per Week Exercise Assessment 6 Minute Walk Predicted - Gender Selection Female Initial 6 Minute Walk Distance (Feet) 1720 ft Resting HR 57 bpm Exercise HR 86 bpm Post Exercise HR 59 bpm Resting BP 146/80 mmHg Exercise BP 140/70 mmHg Post Exercise BP 122/74 mmHg Pre BG 120 mg/dL Post BG 104 mg/dL Effort Rating 5 Current MET Level 4.6 MET Level Goal 5-6 ECG Rhythm Sinus [...] per week) 2 Duration (minutes per session) 30-45 min Effort Rating Recommended 4-6 30 Day Exercise Plan PT plans to [...] needed Learning Assessment Learner Patient Primary Language Vincentian Preferred Learning Style Reading Barriers to Learning No barriers noted Patient Education Education recommended Anatomy and Physiology of the Heart;Blood Pressure;Diabetes;Exercise Principles;Medication Overview;Muscle Conditioning;Nutrition;Risk Factors;Stress Management SMITH APPRENTICE documented in this encounter Plan of Treatment Not on filedocumented as of this encounter Visit Diagnoses Not on filedocumented in this encounter Care Teams Latrine Cleaner Relationship Specialty Start Date End Date Tiffany Leonard MD PCP - General 04/16/01 05/23/21 documented as of this encounter
--- OUTSIDE RECORDS SUMMARY | 2021-12-25 14:07 | XMS_ITS | Encounter Summary ---
:1945 Author Organization [place] Address [address] [place] [address]. [place] [address] Care Team Providers Name Role Phone Tiffany Leonard MD Primary Care Provider [phone] Reason for Visit Rehab Therapy Cardiac Therapy (Routine) - Closed Specialty Diagnoses / Procedures Referred By Contact Refer red To Contact CARDIAC REHAB Diagnoses Medicare// NAY Requested order/recs [facility] Procedures EVALUATION [address] [facility] [address] [place] [address] Phone: Fax: Referral ID Status Reason Start Date Expiration Date Visits V isits Requested Authorized FR -CR Closed 12/18/2015 03/01/2016 36 36 ([id number]) Encounter Details Date Type Department Care Team Description 01/28/2016 Hospital Encounter [facility] Cardiac Big , Alex Mas MD [address] [facility] [address] [facility] [address] [place] [address] and Pulmonary 1, Rh Cardiac Rehab Rehabilitation [facility] [address] [facility] [address] [place] [address] Social History Tobacco Use [...] 0 07/31 1200 MG OR HOURS NEEDED [id number]: Bronchitis acute pravastatin (PRAVACHOL) Take 1 tablet [...] on filedocumented in this encounter Care Teams Claims Technician Relationship Specialty Start Date End Date Tiffany Leonard MD PCP - General 04/16/01 05/23/21 documented as of this encounter
--- OUTSIDE RECORDS SUMMARY | 2021-12-25 14:07 | XMS_ITS | Encounter Summary ---
:1945 Author Organization [place] Address [address] [place] [address]. [place] [address] Care Team Providers Name Role Phone Tiffany Leonard MD Primary Care Provider [phone] Reason for Visit Rehab Therapy Cardiac Therapy (Routine) - Closed Specialty Diagnoses / Procedures Referred By Contact Refer red To Contact CARDIAC REHAB Diagnoses Medicare// NAY Requested order/recs [facility] Procedures EVALUATION [address] [facility] [address] [place] [address] Phone: Fax: Referral ID Status Reason Start Date Expiration Date Visits V isits Requested Authorized FR -CR Closed 12/18/2015 03/01/2016 36 36 ([id number]) Encounter Details Date Type Department Care Team Description 01/25/2016 Hospital Encounter [facility] Cardiac Big , Alex Mas MD [address] [facility] [address] [facility] 100 [place] [address] and Pulmonary 1, Rh Cardiac Rehab Rehabilitation [facility] [address] [facility] [address] [place] [address] Social History Tobacco Use [...] 0 07/31 1200 MG OR HOURS NEEDED [id number]: Bronchitis acute pravastatin (PRAVACHOL) Take 1 tablet [...] on filedocumented in this encounter Care Teams Pharmacy Helper Relationship Specialty Start Date End Date Tiffany Leonard MD PCP - General 04/16/01 05/23/21 documented as of this encounter
--- OUTSIDE RECORDS SUMMARY | 2021-12-25 14:07 | XMS_ITS | Encounter Summary ---
:1945 Author Organization [place] Address [address] [place] [address]. [place] [address] Care Team Providers Name Role Phone Tiffany Leonard MD Primary Care Provider [phone] Reason for Visit Rehab Therapy Cardiac Therapy (Routine) - Closed Specialty Diagnoses / Procedures Referred By Contact Refer red To Contact CARDIAC REHAB Diagnoses Medicare// NAY Requested order/recs [facility] Procedures EVALUATION 105 [facility] [address] [place] [address] Phone: Fax: Referral ID Status Reason Start Date Expiration Date Visits V isits Requested Authorized FR -CR Closed 12/18/2015 03/01/2016 36 36 ([id number]) Encounter Details Date Type Department Care Team Description 01/23/2016 Hospital Encounter [facility] Cardiac Big , Alex Mas MD [address] [facility] [address] [place] [address] [place] [address] and Pulmonary 1, Rh Cardiac Rehab Rehabilitation [facility] [address] [facility] [address] [place] [address] Social History Tobacco Use [...] 0 07/31 1200 MG OR HOURS NEEDED [id number]: Bronchitis acute pravastatin (PRAVACHOL) Take 1 tablet [...] on filedocumented in this encounter Care Teams Experienced Truck Driver Relationship Specialty Start Date End Date Tiffany Leonard MD PCP - General 04/16/01 05/23/21 documented as of this encounter
--- OUTSIDE RECORDS SUMMARY | 2021-12-25 14:07 | XMS_ITS | Encounter Summary ---
:1945 Author Organization [place] Address [address] [place] [address]. [place] [address] Care Team Providers Name Role Phone Tiffany Leonard MD Primary Care Provider [phone] Reason for Visit Rehab Therapy Cardiac Therapy (Routine) - Closed Specialty Diagnoses / Procedures Referred By Contact Refer red To Contact CARDIAC REHAB Diagnoses Medicare// NAY Requested order/recs [facility] Procedures EVALUATION [address] [facility] [address] [place] [address] Phone: Fax: Referral ID Status Reason Start Date Expiration Date Visits V isits Requested Authorized FR -CR Closed 12/18/2015 03/01/2016 36 36 ([id number]) Encounter Details Date Type Department Care Team Description 01/03/2016 Hospital Encounter [facility] Cardiac Big gs, Alex Mas MD [address] [facility] [address] [place] [address] and Pulmonary 2, Rh Cardiac Rehab Rehabilitation [facility] [address] [facility] [address] [place] [address] Social History Tobacco Use [...] 0 07/31 1200 MG OR HOURS NEEDED [id number]: Bronchitis acute pravastatin (PRAVACHOL) Take 1 tablet [...] on filedocumented in this encounter Care Teams Fur Sewer Relationship Specialty Start Date End Date Tiffany Leonard MD PCP - General 04/16/01 05/23/21 documented as of this encounter
--- OUTSIDE RECORDS SUMMARY | 2021-12-25 14:07 | XMS_ITS | Encounter Summary ---
:1945 Author Organization [place] Address [address] [place] [address]. [place] [address] Care Team Providers Name Role Phone Tiffany Leonard MD Primary Care Provider [phone] Reason for Visit Rehab Therapy Cardiac Therapy (Routine) - Closed Specialty Diagnoses / Procedures Referred By Contact Refer red To Contact CARDIAC REHAB Diagnoses Medicare// NAY Requested order/recs [facility] Procedures EVALUATION 105 [facility] [address] [place] [address] Phone: Fax: Referral ID Status Reason Start Date Expiration Date Visits V isits Requested Authorized FR -CR Closed 12/18/2015 03/01/2016 36 36 ([id number]) Encounter Details Date Type Department Care Team Description 01/14/2016 Hospital Encounter [facility] Cardiac Big , Alex Mas MD [address] [facility] 100 [place] [address] and Pulmonary 1, Rh Cardiac Rehab Rehabilitation [facility] [address] [facility] [address] [place] [address] Social History Tobacco Use [...] 0 07/31 1200 MG OR HOURS NEEDED [id number]: Bronchitis acute pravastatin (PRAVACHOL) Take 1 tablet [...] on filedocumented in this encounter Care Teams Import Export Clerk Relationship Specialty Start Date End Date Tiffany Leonard MD PCP - General 04/16/01 05/23/21 documented as of this encounter
--- OUTSIDE RECORDS SUMMARY | 2021-12-25 14:07 | XMS_ITS | Encounter Summary ---
:1945 Author Organization [place] Address [address] [place] [address] Care Team Providers Name Role Phone Jr Landeros MD Primary Care Provider [phone] Encounter Details Date Type Department Care Team Description 05/24/2021 Travel Social History Tobacco Use Types Packs/Day [...] on filedocumented in this encounter Care Teams Client Executive Relationship Specialty Start Date End Date Jr Landeros MD PCP - General Internal Medicine 05/24/21 [address] [place] [address] documented as of this encounter
--- OUTSIDE RECORDS SUMMARY | 2021-12-25 14:08 | XMS_ITS | Encounter Summary ---
:1945 Author Organization [place] Address [address] [place] [address]. [place] [address] Care Team Providers Name Role Phone Tiffany Leonard MD Primary Care Provider [phone] Reason for Visit Reason Onset Date Comments Refill Request 10/27/2011 Accu Check strips & solution Encounter Details Date Type Department Care Team Description 10/27/2011 MyC Refill [facility] Tiffany Leonard Refill Re quest ([facility] Clinic Tammy Marinelli MD Check strips & [address] solution) [place] [address] [phone] Social History Tobacco Use Types Packs/Day Years Used Date Smoking Tobacco: Former Cigarettes Quit : 05/14/1988 Smokeless Tobacco: Never Alcohol Use Standard Drinks/Week Comments No 0 (1 standard drink = 0.6 oz pure alcoho l) Sex Assigned at Date Recorded Female 05/22/2021 3:03 PM CDT documented as of this encounter Miscellaneous Notes Telephone Encounter - Shirin Kinney - 10/27/2011 2:29 PM CDT Refill PSO for quantity of: Last seen: 07/14/11Horacio Last filled: Solution 08/08/09 D-1 Strips 08/06/09 #200 RF-PRN Last A1c 05/05/11 (5.9) Message handled by Nurse Triage. Mirian Chan Telephone Encounter - Shirin Kinney - 10/27/2011 2:27 PM CDT Message from Luis Alberto: Original authorizing provider: Tiffany Leonard MD, MD DowningMayra J Maxwellemeka would like a refill of the following medications: ACCU-CHEK STEPHEN SOLN [Tiffany Leonard MD, MD] ACCU-CHEK STEPHEN STRP [Tiffany Leonard MD, ] Preferred pharmacy: - [facility] Comment: documented in this encounter Plan of Treatment Not on filedocumented as of this encounter Visit Diagnoses Diagnosis Type 2 diabetes, HbA1c goal < 7% (H) - P rimary Type II or unspecified type diabetes aubrey litus without mention of complication, not stated as uncontrolled documented in this encounter Care Teams Tapper Supervisor Relationship Specialty Start Date End Date Tiffany Leonard MD PCP - General 04/16/01 05/23/21 documented as of this encounter
--- OUTSIDE RECORDS SUMMARY | 2021-12-25 14:08 | XMS_ITS | Encounter Summary ---
:1945 Author Organization [place] Address [address] [place] [address]. [place] [address] Care Team Providers Name Role Phone Tiffany Leonard MD Primary Care Provider [phone] Reason for Visit Reason Onset Date Comments Refill Request 06/12/2011 pravastatin Encounter Details Date Type Department Care Team Description 06/12/2011 MyC Refill [facility] Tiffany Leonard [facility] Tammy Marinelli MD (pravastatin) [address] [address] [place] [address] [phone] Social History Tobacco Use Types Packs/Day Years Used Date Smoking Tobacco: Former Cigarettes Quit : 05/14/1988 Alcohol Use Standard Drinks/Week Comments No 0 (1 standard drink = 0.6 oz pure alcoho l) Sex Assigned at Date Recorded Female 05/22/2021 3:03 PM CDT documented as of this encounter Miscellaneous Notes Telephone Encounter - Rigobertohermelindojaya Rakel - 06/12/2011 2:37 PM CDT RF request for pravastatin Ok per RN protocol x3mos since mail order. Pt had recent labs done, not yet reviewed. Last related ov 10-22-10 BP Readings from Last 1 Encounters: 03/11/11 120/66 Recent Labs Lab Test 05/05/11 0807 10/22/10 1057 ??? CHOL 205* 191 ??? HDL 35* 33* ??? LDL 118 115 ??? TRIG 261* 214* ??? CHOLHDLRATIO 5.9* 5.7* AST 24 05/05/2011 ALT 16 05/05/2011 Rakel Varghese RN Telephone Encounter - Rakel Varghese - 06/12/2011 2:32 PM CDT Message from [employer]: Original authorizing provider: Tiffany Leonard MD, MD Mayra Quinn would like a refill of the following medications: pravastatin (PRAVACHOL) 20 MG tablet [Tiffany Leonard MD, ] Preferred pharmacy: [facility] Comment: I WOULD LIKE TO REQUEST A RENEWAL OF THE ABOVE MEDICATION - TO BE FAXED TO [facility]. THANK YOU! documented in this encounter Plan of Treatment Not on filedocumented as of this encounter Visit Diagnoses Diagnosis Hyperlipidemia LDL goal <100 - Primary Other and unspecified hyperlipidemia documented in this encounter Care Teams Surgical Elastic Knitter Relationship Specialty Start Date End Date Tiffany Leonard MD PCP - General 04/16/01 05/23/21 documented as of this encounter
--- OUTSIDE RECORDS SUMMARY | 2021-12-25 14:08 | XMS_ITS | Encounter Summary ---
:1945 Author Organization [place] Address [address] [place] [address]. [place] [address] Care Team Providers Name Role Phone Tiffany Leonard MD Primary Care Provider [phone] Reason for Referral - Closed Specialty Diagnoses / Procedures Referred By Contact Refer red To Contact Diagnoses Personal history of malignant neoplasm of breast Tiffany Leonard MD Procedures BREAST PROSTHESIS, MASTECTOMY BRA [address] [address] [address] Referral ID Status Reason Start Date Expiration Date Visits Requ ested Visits Authorized [id number] Closed 03/03/2012 08/30/2012 1 1 ALT SCREED OPERATOR Reason for Visit Reason Onset Date Comments Refill Request 03/01/2012 Accucheck solution Encounter Details Date Type Department Care Team Description 03/01/2012 MyC Refill [facility] Tiffany Leonard [facility] Tammy Marinelli MD (Accucheck solution) [address] [address] [address] [place] [address] [phone] Social History Tobacco Use Types Packs/Day Years Used Date Smoking Tobacco: Former Cigarettes Quit : 05/14/1988 Smokeless Tobacco: Never Alcohol Use Standard Drinks/Week Comments No 0 (1 standard drink = 0.6 oz pure alcoho l) Sex Assigned at Date Recorded Female 05/22/2021 3:03 PM CDT documented as of this encounter Miscellaneous Notes Telephone Encounter - Rakel Varghese - 03/03/2012 10:45 AM CST Bras ordered and faxed. New rx placed for glucose monitor. Ok per RN protocol Rakel Varghese RN ALT SCREED OPERATOR Telephone Encounter - Shirin Kinney - 03/01/2012 6:16 PM CST Last seen 12/31/11, Horacio Last A1c 12/31/11 (6.0) Accucheck solution refilled [facility] for [facility] ALT SCREED OPERATOR Telephone Encounter - Shirin Kinney - 03/01/2012 6:15 PM ASPHALT SCREED OPERATOR Message from [employer]: Original authorizing provider: Tiffany Leonard MD, MD Mayra Quinn would like a refill of the following medications: Blood Glucose Calibration (ACCU-CHEK STEPHEN) SOLN [Tiffany Leonard MD, MD] Preferred pharmacy: [facility] Comment: Could you please ask Dr. Leonard to write a Rx for three (3) mastectomy bras? If you could fax this prescription to [facility] - [facility] # [phone] - it would be greatly appreciated. Thank you.....................Mayra Mcintosh, I think I checked the right box above. My glucose monitor isn't working. ALT SCREED OPERATOR documented in this encounter Plan of Treatment Not on filedocumented as of this encounter Visit Diagnoses Diagnosis Type 2 diabetes, HbA1c goal < 7% (H) - P rimary Type II or unspecified type diabetes aubrey litus without mention of complication, not stated as uncontrolled PERS HX OF BREAST MALIGNANCY Personal history of malignant neoplasm o f breast documented in this encounter Care Teams Environmental Services Coordinator Relationship Specialty Start Date End Date Tiffany Leonard MD PCP - General 04/16/01 05/23/21 documented as of this encounter
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
--- OUTSIDE RECORDS SUMMARY | 2021-12-25 14:08 | XMS_ITS | Encounter Summary ---
:1945 Author Organization [place] Address [address] [place] [address]. [place] [address] Care Team Providers Name Role Phone Tiffany Leonard MD Primary Care Provider [phone] Reason for Visit Reason Onset Date Comments Refill Request 11/12/2011 test strips Encounter Details Date Type Department Care Team Description 11/12/2011 Refill [facility] Tiffany Leonard R efill Request (test Clinic Tammy BARRIENTOS strips) [id number] [address] [address] [place], [place] [id number] [phone] Social History Tobacco Use Types Packs/Day Years Used Date Smoking Tobacco: Former Cigarettes Quit : 05/14/1988 Smokeless Tobacco: Never Alcohol Use Standard Drinks/Week Comments No 0 (1 standard drink = 0.6 oz pure alcoho l) Sex Assigned at Date Recorded Female 05/22/2021 3:03 PM CDT documented as of this encounter Miscellaneous Notes Telephone Encounter - Rakel Varghese - 11/12/2011 9:31 AM CDT Refill request for test strips needed clarification. 

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
--- OUTSIDE RECORDS SUMMARY | 2021-12-25 14:08 | XMS_ITS | Encounter Summary ---
:1945 Author Organization [facility] Address [address] [place] [address]. [place] [address] Care Team Providers Name Role Phone Tiffany Leonard MD Primary Care Provider [phone] Reason for Visit Reason Onset Date Comments Erroneous encounter-disregard 04/15/2012 Encounter Details Date Type Department Care Team Description 04/15/2012 Telephone [facility] Tiffany Leonard Erroneous [facility] Tammy Marinelli MD encounter-disregard [id number] [address] [place] [id number] [phone] Social History Tobacco Use Types Packs/Day Years Used Date Smoking Tobacco: Former Cigarettes Quit : 05/14/1988 Smokeless Tobacco: Never Alcohol Use Standard Drinks/Week Comments No 0 (1 standard drink = 0.6 oz pure alcoho l) Sex Assigned at Date Recorded Female 05/22/2021 3:03 PM CDT documented as of this encounter Plan of Treatment Not on filedocumented as of this encounter Visit Diagnoses Not on filedocumented in this encounter Care Teams Cardiopulmonary Technologist Relationship Specialty Start Date End Date Tiffany Leonard MD PCP - General 04/16/01 05/23/21 documented as of this encounter
--- OUTSIDE RECORDS SUMMARY | 2021-12-25 14:08 | XMS_ITS | Encounter Summary ---
:1945 Author Organization [facility] Address [address] [place] [address] Care Team Providers Name Role Phone Tiffany Leonard MD Primary Care Provider [phone] Encounter Details Date Type Department Care Team Description 05/05/2011 Orders Only [facility] Hyp erlipidemia LDL goal <100; [facility] Type 2 diabetes, HbA1C goal < 7% (H); [address] Hyperlipidemia LDL goal <100 [place], [place] [id number] Social History Tobacco Use Types Packs/Day Years [...] Name Priority Date/Time Associated Diagnosis Comme nts ALBUMIN RANDOM URINE Routine 05/05/2011 8:07 Type 2 diabetes, HbA1C Results for this QUANTITATIVE AM ASSOCIATE PROFESSOR OF SURGERY goal < 7% (H) procedure are in the results section. LIPID REFLEX TO Routine 05/05/2011 8:07 Hyperlipidemia LDL Res ults for this DIRECT LDL PANEL AM ASSOCIATE PROFESSOR OF SURGERY goal <100 procedure a re in the results section. HEMOGLOBIN A1C Routine 05/05/2011 8:07 Type 2 diabetes, HbA1C Results for this AM ASSOCIATE PROFESSOR OF SURGERY goal < 7% (H) procedure are in the results section. COMPREHENSIVE Routine 05/05/2011 8:07 Type 2 diabetes, HbA1C R esults for this METABOLIC PANEL AM ASSOCIATE PROFESSOR OF SURGERY goal < 7% (H) procedure are in Hyperlipidemia LDL the resul ts goal <100 section. documented in this encounter Results (ABNORMAL) Comprehensive metabolic panel (05/05/2011 8:07 AM ASSOCIATE PROFESSOR OF SURGERY) athologist Signature Sodium 138 133 - 144 [place] mmol/L [facility] Potassium 4.1 3.4 - 5.3 [place] mmol/L [facility] Chloride 99 94 - 109 [place] mmol/L [facility] Carbon Dioxide 27 20 - 32 [place] mmol/L [facility] Anion Gap 12 6 - 17 [place] mmol/L [facility] Glucose 101 (H) 60 - 99 [place] mg/dL [facility] Urea Nitrogen 15 7 - 30 [place] mg/dL [facility] Creatinine 0.59 0.52 - [facility] 1.04 mg/dL [facility] GFR Estimate >90 >60 [place] mL/min/1.7 [facility] m2 LAB GFR Estimate If >90 >60 [place] Black mL/min/1.7 [facility] m2 LAB Calcium 9.6 8.5 - 10.4 [place] mg/dL [facility] Bilirubin Total 0.7 0.2 - 1.3 [place] mg/dL [facility] Albumin 4.1 3.3 - 4.9 [place] g/dL [facility] Comment: Reference range changed on 11/01. Protein Total 7.5 6.8 - 8.8 g/dL [facility] Comment: As of 07, reference range reflects plasma specimen type. Alkaline Phosphatase 71 40 - 150 U/L [facility] ALT 16 0 - 50 U/L [facility] AST 24 0 - 45 U/L [facility] Specimen Anatomical Collection Method Collection Time Receive d Time (Source) Location / / Volume Laterality Blood specimen 05/05/2011 8:07 AM 012 8:08 (specimen) ASSOCIATE PROFESSOR OF SURGERY AM ASSOCIATE PROFESSOR OF SURGERY Tiffany Leonard MD LAB - BLOOD ORDERABLES Performing Organization Address City/State/ZIP Code Phon e Number [facility] [address] [place] [address] [facility] (ABNORMAL) Microalbumin quantitative random urine (05/05/2011 8:07 AM ASSOCIATE PROFESSOR OF SURGERY) Patholo gist Method Time Signature Creatinine 57 mg/dL [facility] Urine [facility] Albumin Urine 15 mg/L [facility] mg/L [facility] Albumin Urine 26.49 (H) 0 - 25 [facility] mg/g Cr mg/g Cr [facility] Specimen Anatomical Collection Method Collection Time Receive d Time (Source) Location / / Volume Laterality Urine specimen 05/05/2011 8:07 AM 012 8:09 (specimen) ASSOCIATE PROFESSOR OF SURGERY AM ASSOCIATE PROFESSOR OF SURGERY Tiffany Leonard MD LAB - URINE ORDERABLES Performing Organization Address City/State/ZIP Code Phon e Number [id number] [place] [address] LABS Hemoglobin A1c (05/05/2011 8:07 AM ASSOCIATE PROFESSOR OF SURGERY) athologist Signature Hemoglobin A1C 5.9 4.3 - 6.0 [place] % [facility] Specimen Anatomical Collection Method Collection Time Receive d Time (Source) Location / / Volume Laterality Blood specimen 05/05/2011 8:07 AM 012 8:08 (specimen) ASSOCIATE PROFESSOR OF SURGERY AM ASSOCIATE PROFESSOR OF SURGERY Tiffany Leonard MD LAB - BLOOD ORDERABLES Performing Organization Address City/State/ZIP Code Phon e Number [facility] [address] [place], [place] [address] [facility] (ABNORMAL) Lipid Profile with reflex to direct LDL (05/05/2011 8:07 AM ASSOCIATE PROFESSOR OF SURGERY) athologist Signature Cholesterol 205 (H) 0 - 200 [place] [facility] mg/dL [facility] Comment: LDL Cholesterol is the primary guide to therapy. The NCEP recommends further evaluation of: patients with cholesterol greater than 200 mg/dL if additional risk facto rs are present, cholesterol greater than 240 mg/dL, triglycerides greater than 1 50 mg/dL, or HDL less than 40 mg/dL. Triglycerides 261 (H) 0 - 150 mg/dL [place] [facility] HDL Cholesterol 35 (L) 50 - 110 mg/dL [facility] LDL Cholesterol Calculated 118 0 - 129 mg/dL [facility] Comment: LDL Cholesterol is the primary guide to therapy: LDL-cholesterol goal in high risk patients is <100 mg/dL and in very high risk patients is <70 mg/dL. VLDL-Cholesterol 52 (H) 0 - 30 mg/dL [facility] Cholesterol/HDL Ratio 5.9 (H) 0.0 - 5.0 [facility] Specimen Anatomical Collection Method Collection Time Receive d Time (Source) Location / / Volume Laterality Blood specimen 05/05/2011 8:07 AM 012 8:08 (specimen) ASSOCIATE PROFESSOR OF SURGERY AM ASSOCIATE PROFESSOR OF SURGERY Tiffany Leonard MD LAB - BLOOD ORDERABLES Performing Organization Address City/State/ZIP Code Phon e Number [address] [address] [facility] documented in this encounter Visit Diagnoses Diagnosis Hyperlipidemia LDL goal <100 Other and unspecified hyperlipidemia Type 2 diabetes, HbA1c goal < 7% (H) Type II or unspecified type diabetes aubrey litus without mention of complication, not stated as uncontrolled documented in this encounter Care Teams Community Outreach Manager Relationship Specialty Start Date End Date Tiffany Leonard MD PCP - General 04/16/01 documented as of this encounter
--- OUTSIDE RECORDS SUMMARY | 2021-12-25 14:08 | XMS_ITS | Encounter Summary ---
:1945 Author Organization [place] Address [address] [place] [address]. [place] [address] Care Team Providers Name Role Phone Tiffany Leonard MD Primary Care Provider [phone] Reason for Visit Reason Onset Date Comments Refill Request 12/14/2012 Atenolol Encounter Details Date Type Department Care Team Description 12/14/2012 Refill M [facility] Tiffany Lenoard R efill Request Clinic Cindy BARRIENTOS (Atenolol ) [address] [address] [place] [address] [phone] Social History Tobacco Use Types Packs/Day Years Used Date Smoking Tobacco: Former Cigarettes Quit : 05/14/1988 Smokeless Tobacco: Never Alcohol Use Standard Drinks/Week Comments No 0 (1 standard drink = 0.6 oz pure alcoho l) Sex Assigned at Date Recorded Female 05/22/2021 3:03 PM CDT documented as of this encounter Miscellaneous Notes Telephone Encounter - Tash Smith - 12/14/2012 3:38 PM CDT Refilled Pso for quanity of #180 since this is mail order, I sent her a reminder letter via [employer] and also mailed her a reminder letter Last Seen: 12/31/[address] Leonard BP Readings from Last 4 Encounters: 12/31/11 120/68 08/16/11 178/81 07/14/11 130/62 03/11/11 120/66 Potassium Date Value Range Status 04/12/2012 3.9 3.4 - 5.3 mmol/L Final Creatinine Date Value Range Status 04/12/2012 0.61 0.52 - 1.04 mg/dL Final Rtc instructions: see above Tash Smith RN. documented in this encounter Plan of Treatment Not on filedocumented as of this encounter Visit Diagnoses Diagnosis Unspecified cardiovascular disease - [facility] documented in this encounter Care Teams Entry Level Staff Accountant Relationship Specialty Start Date End Date Tiffany Leonard MD PCP - General 04/16/01 05/23/21 documented as of this encounter
--- OUTSIDE RECORDS SUMMARY | 2021-12-25 14:08 | XMS_ITS | Encounter Summary ---
:1945 Author Organization [facility] Address [address] [place] [address] Care Team Providers Name Role Phone Tiffany Leonard MD Primary Care Provider [phone] Reason for Visit Reason Comments Lipids follow up on labs done in [facility] Diabetes Encounter Details Date Type Department Care Team Description 07/14/2011 Office Visit [facility] Tiffany Leonard Hyperlipi demia LDL goal <100 (Primary Dx); Clinic Tammy Marinelli MD Gastritis; [address] [address] [address] Unspecified cardiovascular disease; [address] Type 2 diabetes, HbA1C goal < 7% (H); [place] [address] [facility] [facility] [place] [address] [phone] Social History Tobacco Use Types Packs/Day Years Used Date Smoking Tobacco: Former Cigarettes Quit : 05/14/1988 Smokeless Tobacco: Never Alcohol Use Standard Drinks/Week Comments No 0 (1 standard drink = 0.6 oz pure alcoho l) Sex Assigned at Date Recorded Female 05/22/2021 3:03 PM CDT documented as of this encounter Last Filed Vital Signs Vital Sign Reading Time Taken Comments Blood Pressure 130/62 07/14/2011 11:18 AM CDT Pulse 64 07/14/2011 11:18 AM CDT Temperature - - Respiratory Rate 18 07/14/2011 11:18 AM CDT Oxygen Saturation - - Inhaled Oxygen Concentration - - Weight 71.7 kg (158 lb) 07/14/2011 11:18 AM CDT Height 163.8 cm (5' 4.5) 07/14/2011 11:18 AM CDT Body Mass Index 26.7 07/14/2011 11:18 AM CDT documented in this encounter Patient Instructions Patient InstructionsTiffany Leonard MD - 07/14/2011 11:57 AM CDT Change Pravachol 20 mg to Pravachol 40 mg daily in addition to keeping active. Recheck labs in 12 weeks; goal LDL<100 documented in this encounter Progress Notes Tiffany Leonard MD - 07/14/2011 11:24 AM CDT SUBJECTIVE: Mayra Quinn is a 65 year old female who presents to clinic today for the following health issues: Diabetes Follow-up ?? Patient is checking blood sugars: weekly. Results: am - 104 ?? Symptoms of hypoglycemia (low blood sugar): none ?? Paresthesias (numbness or burning in feet) or sores: Yes neuropathy from chemo ?? Diabetic eye exam within the last year: No ?? Breakfast eaten regularly: Yes ?? Patient counting carbs: Yes A1C 5.9 05/05/2011 LDL 118 05/05/2011 Hyperlipidemia Follow-Up ?? Watching cholesterol in diet?: Yes ?? Any muscle aches?: no ?? Not at goal of LDL<100 ?? Amount of exercise or daily activities, outside of work: not at this time ?? Problems taking medications regularly No ?? Medication side effects: No Other concerns to address: Needs rx refills Fell last year in January and has some tenderness still in her right cheeck Staff Signature:Chitra Osorio LPN On low dose beta garret- doing well Gastritis- EGD 2003 with recommendation of PPI use indefinitely Past breast cancer treated with chemotherapy- ongoing neuropathic changes. ROS: CONSTITUTIONAL:NEGATIVE for fever, chills, change in weight INTEGUMENTARY/SKIN: NEGATIVE for worrisome rashes, moles or lesions EYES: NEGATIVE for vision changes or irritation RESP:NEGATIVE for significant cough or SOB BREAST: previous breast cancer- surgery and chemo CV: heart related concerns- overall OK; eval done at [facility]; doing well on low dose beta garret. GI: chronic gastritis noted on 2003 EGD; GI recommended indefinite use of PPI at that time; Prev acid better than Omeprazole per pt. MUSCULOSKELETAL: NEGATIVE for significant arthralgias or myalgia NEURO: denies dizziness; chemotherapy induced neuropathy ENDOCRINE: NEGATIVE for temperature intolerance, skin/hair changes and LDL goals reviewed- not currently met. HEME/ALLERGY/IMMUNE: NEGATIVE for bleeding problems PSYCHIATRIC: NEGATIVE for changes in mood or affect Problem list, Medication list, Allergies, and Medical/Social/Surgical histories reviewed in [facility] andupdated as appropriate. Labs reviewed in [facility] BP Readings from Last 3 Encounters: 07/14/11 130/62 03/11/11 120/66 03/05/11 155/80 Wt Readings from Last 3 Encounters: 07/14/11 158 lb (71.668 kg) 03/11/11 158 lb (71.668 kg) 10/22/10 158 lb 11.2 oz (71.986 kg) Patient Active Problem List Diagnoses Code ??? PERS HX OF BREAST MALIGNANCY V10.3 ??? ASCVD 429.2 ??? OSTEOPOROSIS NOS 733.00 ??? IDIO PERIPH NEURPTHY NOS 356.9 ? ? HYPERLIPIDEMIA LDL GOAL <100 272.4CL ? ? Type 2 Diabetes, HbA1c Goal < 7% 250.00FV ??? Advanced directives, counseling/discussion V65.49J Past Surgical History Procedure Date ??? Mastectomy, mod radical (any) 1997 right ??? Hysterectomy, karen 1989 Fibroid ??? C appendectomy 1989 ??? Arthroscopy knee rt/lt right knee ??? Tonsillectomy child luciano ??? Angioplasty 1988 [facility] ??? Hysterectomy, pap no longer indicated History Substance Use Topics ??? Smoking status: Former Smoker Quit date: 05/14/1988 ??? Smokeless tobacco: Never Used ??? Alcohol Use: No Family History Problem Relation Age of Onset ??? Respiratory Mother copd ??? C.A.D. Father ??? Hypertension Father ??? Cancer Maternal Grandmother unknown etiology ??? Cancer Maternal Grandfather unknown etiology ??? Stroke Paternal Grandfather ??? C.A.D. Brother ??? Heart Brother from a heart attack Current outpatient prescriptions Medication Sig ??? LANsoprazole (PREVACID) 15 MG capsule Take 2 capsules by mouth daily. ??? atenolol (TENORMIN) 25 MG tablet Take 1 tablet by mouth 2 times daily. ??? metFORMIN (GLUCOPHAGE-XR) 500 MG 24 hr tablet Take 2 tablets by mouth. Two DAILY WITH MEAL ??? gabapentin (NEURONTIN) 600 MG tablet Take 3 tablets by mouth. Take 1 tablet at noon and 2 at Bedtime ??? pravastatin (PRAVACHOL) 40 MG tablet Take 1 tablet by mouth daily. ??? ACCU-CHEK STEPHEN STRP TEST 1-2 TIMES DAILY ??? ACCU-CHEK MULTICLIX LANCETS MISC TEST 1-2 TIMES DAILY ??? ACCU-CHEK STEPHEN SOLN use as directed changing bottle every 3 months ??? MONIQUE NOT PRESCRIBED (INTENTIONAL) not prescribed previously tried and reported cough ??? MUCINEX MAXIMUM STRENGTH 1200 MG OR TB12 1 TABLET EVERY 12 HOURS NEEDED ??? ASPIRIN 81 MG OR TABS 1 TABLET DAILY Allergies Allergen Reactions ??? Sulfa Drugs Hives ??? Latex Hives and Itching Bandaids and other contact OBJECTIVE: BP 130/62 Pulse 64 Resp 18 Ht 5' 4.5 (1.638 m) Wt 158 lb (71.668 kg) BMI 26.70 kg/m2 Bodymass index is 26.70 kg/(m^2). GENERAL: healthy, alert and no distress NECK: no tenderness, no adenopathy, no asymmetry, no masses, no stiffness; thyroid- normal to palpation RESP: lungs clear to auscultation - no rales, no rhonchi, no wheezes CV: regular rates and rhythm, normal S1 S2, no ectopy and no murmur, ABDOMEN: soft, no tenderness, no hepatosplenomegaly, no masses, normal bowel sounds MS: extremities- no gross deformities noted, no edema SKIN: no suspicious lesions, no rashes NEURO: normal strength; no skin changes of lower extremities; neuropathy Diabetic foot exam: normal DP and PT pulses, no trophic changes or ulcerative lesions and decreased sensory exam PSYCH: mentation appears normal LYMPHATICS: no lymphadenopathy ASSESSMENT/PLAN: 272.4CL Hyperlipidemia LDL goal <100 (primary encounter diagnosis) Comment: Pravachol; previously added Niaspan to help with HDL and TG. LDL not at goal when checked in April; modifying risk, meds, etc Due to check in summer and then if not at goal, may need to consider other med options. Plan: pravastatin (PRAVACHOL) 40 MG tablet, Lipid panel reflex to direct LDL, Comprehensive metabolic panel 535.50F Gastritis Comment: EGD 2003; GI recommended PPI indefinitely, past trial of Omeprazole not as effective as Prevacid.. Plan: LANsoprazole (PREVACID) 15 MG capsule, Hemoglobin Pt reminded of benefits of maximizing calcium and vit D to help with bone health (due to being on PPI) 429.2 Unspecified cardiovascular disease Comment: low dose beta garret helpful for BP and to lower risk of heart related concenrs Plan: atenolol (TENORMIN) 25 MG tablet 250.00FV Type 2 diabetes, HbA1C goal < 7% Comment: BP Readings from Last 1 Encounters: 07/14/11 130/62 GLC 101 05/05/2011 A1C 5.9 05/05/2011 LDL 118 05/05/2011 MICROL 15 05/05/2011 MICROALBUMIN 26.49 05/05/2011 Plan: metFORMIN (GLUCOPHAGE-XR) 500 MG 24 hr tablet, FOOT EXAM, Lipid panel reflex to direct LDL, Comprehensive metabolic panel, Hemoglobin A1c, TSH with free T4 reflex, Microalbumin quantitative random urine 356.9 IDIO PERIPH NEURPTHY NOS Comment: Chemotherapy related ; breast cancer 1997 and 2001- more so after second round Feels the Neurontin is helpful overall, Plan: gabapentin (NEURONTIN) 600 MG tablet Risks, benefits and alternatives of treatments discussed. Plan agreed on. Follow up with Provider after next lab draw Tiffany Leonard MD Internal Medicine electronically signed 25 minutes is spent with patient, over 50% of that time spent providing counselling, discussing and reviewing meds and potential side effects. documented in this encounter Nursing Notes 07/14/2011 11:15 AM CDT >> MASSIEL OSORIO Mon July 14, 2011 11:24 AM Patient presents with: Lipids - follow up on labs done in april Diabetes Initial BP 130/62 Pulse 64 Resp 18 Ht 5' 4.5 (1.638 m) Wt 158 lb (71.668 kg) BMI 26.70 kg/m2 Estimated Body mass index is 26.70 kg/(m^2) as calculated from the following: Height as of this encounter: 5' 4.5(1.638 m). Weight as of this encounter: 158 lb(71.668 kg). BP completed using cuff size. large. Chitra Osorio LPN documented in this encounter Plan of Treatment Not on filedocumented as of this encounter Procedures Procedure Name Priority Date/Time Associated Diagnosis Comme nts C FOOT EXAM Routine 07/14/2011 11:57 AM CDT Type 2 diabetes, HbA1C goal < 7% (H) documented in this encounter Visit Diagnoses Diagnosis Hyperlipidemia LDL goal <100 - Primary Other and unspecified hyperlipidemia Gastritis Unspecified gastritis and gastroduodenit is without mention of hemorrhage Unspecified cardiovascular disease Type 2 diabetes, HbA1c goal < 7% (H) Type II or unspecified type diabetes aubrey litus without mention of complication, not stated as uncontrolled IDIO PERIPH NEURPTHY NOS Unspecified hereditary and idiopathic pe ripheral neuropathy documented in this encounter Care Teams Technical Clerk Relationship Specialty Start Date End Date Tiffany Leonard MD PCP - General 04/16/01 documented as of this encounter
--- OUTSIDE RECORDS SUMMARY | 2021-12-25 14:08 | XMS_ITS | Encounter Summary ---
:1945 Author Organization [facility] Address [address] [place] [address]. [place] [address] Care Team Providers Name Role Phone Tiffany Leonard MD Primary Care Provider [phone] Reason for Visit Reason Onset Date Comments Refill Request 01/25/2013 pravastatin Encounter Details Date Type Department Care Team Description 01/25/2013 Refill [facility] Tiffany Leonard R efill Request Clinic Cindy BARRIENTOS (pravastatin) [address] [address] [facility] [place] [address] [phone] Social History Tobacco Use Types Packs/Day Years Used Date Smoking Tobacco: Former Cigarettes Quit : 05/14/1988 Smokeless Tobacco: Never Alcohol Use Standard Drinks/Week Comments No 0 (1 standard drink = 0.6 oz pure alcoho l) Sex Assigned at Date Recorded Female 05/22/2021 3:03 PM CDT documented as of this encounter Miscellaneous Notes Telephone Encounter - Mayra Sal - 01/25/2013 8:29 AM CST RF request from pharmacy for pravastatin. Last OV 12/31/11, last labs 04/12/12, LDL 79. Refilled per [facility] protocol. ICE CLINICAL MANAGER documented in this encounter Plan of Treatment Not on filedocumented as of this encounter Visit Diagnoses Diagnosis Hyperlipidemia LDL goal <100 - Primary Other and unspecified hyperlipidemia documented in this encounter Care Teams Costume Technician Relationship Specialty Start Date End Date Tiffany Leonard MD PCP - General 04/16/01 05/23/21 documented as of this encounter
--- OUTSIDE RECORDS SUMMARY | 2021-12-25 14:08 | XMS_ITS | Encounter Summary ---
:1945 Author Organization [facility] Address [address] [place] [address] Care Team Providers Name Role Phone Tiffany Leonard MD Primary Care Provider [phone] Reason for Visit Reason Comments Other rec[facility]- sent to chart prep for ov with dr enriquez on 12/24/15 in [place] Encounter Details Date Type Department Care Team Description 12/05/2015 Documentation Only [facility] Him Use Only, Oth er (recs received [facility] Fung [facility] For Event from [address] [place] [address] Social History Tobacco Use Types Packs/Day Years [...] on filedocumented in this encounter Care Teams Manager Technical Relationship Specialty Start Date End Date Tiffany Leonard MD PCP - General 04/16/01 05/23/21 documented as of this encounter
--- OUTSIDE RECORDS SUMMARY | 2021-12-25 14:08 | XMS_ITS | Encounter Summary ---
:1945 Author Organization [place] Address [address] [place] [address]. [place] [address] Care Team Providers Name Role Phone Tiffany Leonard MD Primary Care Provider [phone] Reason for Visit Reason Onset Date Comments Refill Request 02/16/2012 Cuauhtemoc Encounter Details Date Type Department Care Team Description 02/16/2012 MyC Refill [facility] Tiffany Leonard Refill [facility] Tammy Marinelli MD (Cozaar) [address] [facility] [facility] [address] [address] [place] [address] [phone] Social History Tobacco Use Types Packs/Day Years Used Date Smoking Tobacco: Former Cigarettes Quit : 05/14/1988 Smokeless Tobacco: Never Alcohol Use Standard Drinks/Week Comments No 0 (1 standard drink = 0.6 oz pure alcoho l) Sex Assigned at Date Recorded Female 05/22/2021 3:03 PM CDT documented as of this encounter Miscellaneous Notes Telephone Encounter - Shirin Kinney - 02/17/2012 8:37 AM CST Refill PSO for quantity of: Last seen:12/31/11, Horacio Last filled:01/01/12 #30 RF-1 Last BP-120/68 Message handled by Nurse Triage Mirian Chan MECHANIC Telephone Encounter - Batsheva Kinneythia - 02/17/2012 8:33 AM CNC MECHANIC Message from [employer]: Original authorizing provider: Tiffany Leonard MD, MD Mayra Qunin would like a refill of the following medications: losartan (COZAAR) 25 MG tablet [Tiffany Leonard MD, ] Preferred pharmacy: [facility] Comment: Could I get a refill on this Rx - called into [facility] - or faxed. Thank you. 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
--- OUTSIDE RECORDS SUMMARY | 2021-12-25 14:08 | XMS_ITS | Encounter Summary ---
:1945 Author Organization [facility] Address [address] [place] [address]. [place] [address] Care Team Providers Name Role Phone Tiffany Leonard MD Primary Care Provider [phone] Reason for Visit (Routine) - Closed Specialty Diagnoses / Procedures Referred By Contact Refer red To Contact Radiology Diagnoses SCREENING UNILATERAL - DIGITAL LEFT Procedure Notes: Routine [facility] Procedures RADIOLOGY [address], [address] [place], [place] [address] Phone: Fax: Referral ID Status Reason Start Date Expiration Date Visits Requ ested Visits Authorized [id number] Closed 12/12/2011 12/11/2012 1 1 Encounter Details Date Type Department Care Team Description 12/15/[address] [facility] Tiffany Leonard [facility] MD [place] [address], [address] [facility] [address] [place] [address] [place], [place] [phone] (Wo rk) [address] [phone] Social History Tobacco Use Types Packs/Day Years [...] 0 07/31 1200 MG OR HOURS NEEDED [id number]: Bronchitis acute MONIQUE NOT PRESCRIBED not prescribed 0 08/02/2009 (INTENTIONAL)Indications: previously tried Type 2 diabetes, HbA1c and reported cough goal < 7% (H), Microalbuminuria atenolol (TENORMIN) 25 MG Take 1 tablet by 180 tablet 3 06/3007/16/2012 tabletIndications: mouth 2 times Unspecified daily. cardiovascular disease Blood Glucose Calibration 1 Bottle by In 1 Bottle 0 201103/01/2012 (ACCU-CHEK STEPHEN) Vitro route daily SOLNIndications: Type 2 as needed. diabetes, HbA1c goal < 7% (H) gabapentin (NEURONTIN) Take 3 tablets by 270 tablet 3 201106/03/2021 600 MG tabletIndications: mouth. 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 goal < 7% (H) LANsoprazole (PREVACID) Take 2 capsules by 180 capsule 3 07/16/2012 15 MG capsuleIndications: mouth daily. Gastritis metFORMIN (GLUCOPHAGE-XR) Take 2 tablets by 180 tablet 0 12/31/2011 500 MG 24 hr mouth. Two DAILY tabletIndications: Type 2 WITH MEAL diabetes, HbA1c goal < 7% (H) pravastatin (PRAVACHOL) Take 1 tablet by 90 tablet 0 201112/31/2011 40 MG tabletIndications: mouth daily. Hyperlipidemia LDL goal <100 documented as of this encounter Plan of Treatment Not on filedocumented as of this encounter Procedures Procedure Name Priority Date/Time Associated Diagnosis Comme [facility] SCREENING Routine 12/15/2011 9:54 AM Results f or this DIGITAL LEFT CDT procedure are i n the results section. documented in this encounter Results Mammo Screening digital left* (12/15/2011 9:54 AM CDT) Anatomical Region Laterality Modality Breast Left Other Specimen (Source) Anatomical Collection Method Collection Time Re ceived Time Location / / Volume Laterality 12/15/2011 9:54 AM CDT Impressions 12/15/2011 10:11 AM CDT SCREENING MAMMOGRAM, LEFT, DIGITAL w/CAD - 12/15/2011 9:54 AM BREAST SYMPTOMS: No current breast compl aints. COMPARISON: ??11/05/2010, 07/21/2007 PARENCHYMAL PATTERN: Scattered fibroglan dular densities. COMMENTS: No findings of suspicion for m alignancy. ?? The patient has had a prior right mastectomy. IMPRESSION: BIRADS 1, NEGATIVE. RECOMMENDATION: Recommend annual screeni ng mammography. Exam results letter mailed to patient. Tiffany Leonard MD IMG MAMMOGRAPHY ORDERABLES documented in this encounter Visit Diagnoses Not on filedocumented in this encounter Care Teams Reinforcing Metal Worker Relationship Specialty Start Date End Date Tiffany Leonard MD PCP - General 04/16/01 05/23/21 documented as of this encounter
--- OUTSIDE RECORDS SUMMARY | 2021-12-25 14:08 | XMS_ITS | Encounter Summary ---
:1945 Author Organization [facility] Address [address] [place] [address]. [place] [address] Care Team Providers Name Role Phone Tiffany Leonard MD Primary Care Provider [phone] Reason for Visit Reason Onset Date Comments ER F/U 08/16/2011 Abrasion, head injur y,08/16/2011,2 Encounter Details Date Type Department Care Team Description 08/18/2011 Telephone [facility] Tiffany Leonard ER F/U (A brasion, head Clinic Tammy Marinelli MD injury,08/16/2011,2) [address] [place], [place] [phone] Social History Tobacco Use Types Packs/Day Years Used Date Smoking Tobacco: Former Cigarettes Quit : 05/14/1988 Smokeless Tobacco: Never Alcohol Use Standard Drinks/Week Comments No 0 (1 standard drink = 0.6 oz pure alcoho l) Sex Assigned at Date Recorded Female 05/22/2021 3:03 PM CDT documented as of this encounter Miscellaneous Notes Telephone Encounter - Rakel Varghese - 08/20/2011 11:44 AM CDT ED/Discharge Protocol Hi, my name is Rakel Varghese, a registered nurse, and I am calling on behalf of Dr. Leonard's office at [facility]. I am calling to follow up and see how things are going for you after your recent visit. I see that you were in the (ER/UC/IP) on 08-16-11. How are you doing now that you are home? fine Is patient experiencing symptoms that may require a hospital visit? no Discharge Instructions Let's review your discharge instructions. What is/are the follow-up recommendations? Pt. Response: follow up only if problems Were you instructed to make a follow-up appointment? Pt. Response: No. When you see the provider, I would recommend that you bring your discharge instructions with you. Medications Were there any changes made to your current medications? No. Were you given any new prescriptions during your visit? No. Call Summary Do you have any questions or concerns about your condition or care plan at the moment? No Triage nurse advice given: none Patient was in ER 1 in the past year (assess appropriateness of ER visits.) If you have questions or things don't continue to improve, we encourage you contact us through the main clinic number, . Even if the clinic is not open, triage nurses are available 22/09 tohelp you. We would like you to know that our clinic has extended hours (provide information). We also have urgent care (provide details on closest location and hours/contact info) Thank you for your time and take care! Rakel Varghese RN Telephone Encounter - Shirin Kinney - 08/19/2011 9:33 AM CDT ED / Discharge Outreach Protocol Patient Contact Attempt # 1 Was call answered? No. Left message on voicemail with information to call me back. Unable to reach pt on her listed cell phone number. Message handled by Nurse Triage. Mirian Kinney RN. Telephone Encounter - Kayla Moise - 08/18/2011 3:04 PM CDT Please contact patient for Emergency Department follow up. [phone] (home) Visit date: 08/16/2011 Diagnosis listed:Abrasion, head injury Number of visits in past 12 months:2 documented in this encounter Plan of Treatment Not on filedocumented as of this encounter Visit Diagnoses Not on filedocumented in this encounter Care Teams Shift Production Associate Relationship Specialty Start Date End Date Tiffany Leonard MD PCP - General 04/16/01 05/23/21 documented as of this encounter
--- OUTSIDE RECORDS SUMMARY | 2021-12-25 14:08 | XMS_ITS | Encounter Summary ---
:1945 Author Organization [facility] Address [address] [place] [address]. [place] [address] Care Team Providers Name Role Phone Tiffany Leonard MD Primary Care Provider [phone] Reason for Visit Reason Onset Date Comments Refill Request 11/09/2012 Encounter Details Date Type Department Care Team Description 11/09/2012 Refill [facility] Tiffany Leonard MD Refill Request [place] [address] [place] [address] [place] [address] [place] [address] [phone] Social History Tobacco Use Types Packs/Day Years Used Date Smoking Tobacco: Former Cigarettes Quit : 05/14/1988 Smokeless Tobacco: Never Alcohol Use Standard Drinks/Week Comments No 0 (1 standard drink = 0.6 oz pure alcoho l) Sex Assigned at Date Recorded Female 05/22/2021 3:03 PM CDT documented as of this encounter Miscellaneous Notes Telephone Encounter - Silke Briscoe - 11/09/2012 1:44 PM CDT Medication requested: metformin Date of last office visit related to request: 12/31/2011 Date last filled: 12/30/2012 qty 180 R-3 Labs pertaining to med: LDL Cholesterol Calculated Date Value Range Status 04/12/2012 79 0 - 129 mg/dL Final LDL Cholesterol is the primary guide to therapy: LDL-cholesterol goal in high risk patients is <100 mg/dL and in very high risk patients is <70 mg/dL. MICROL 20 04/12/2012 MICROALBUMIN 18.87 04/12/2012 Creatinine Date Value Range Status 04/12/2012 0.61 0.52 - 1.04 mg/dL Final BP Readings from Last 3 Encounters: 12/31/11 120/68 08/16/11 178/81 07/14/11 130/62 A1C 5.7 04/12/2012 A1C 6.0 12/31/2011 A1C 5.9 05/05/2011 A1C 5.9 10/22/2010 A1C 5.8 05/30/2010 Reminder letter sent. Medication approved PSO Silke Briscoe RN documented in this encounter Plan of Treatment Not on filedocumented as of this encounter Visit Diagnoses Diagnosis Type 2 diabetes, HbA1c goal < 7% (H) - P rimary Type II or unspecified type diabetes aubrey litus without mention of complication, not stated as uncontrolled documented in this encounter Care Teams Smash Fixer Relationship Specialty Start Date End Date Tiffany Leonard MD PCP - General 04/16/01 05/23/21 documented as of this encounter
--- OUTSIDE RECORDS SUMMARY | 2021-12-25 14:08 | XMS_ITS | Encounter Summary ---
:1945 Author Organization [facility] Address [address] [place] [address]. [place] [address] Care Team Providers Name Role Phone Tiffany Leonard MD Primary Care Provider [phone] Reason for Visit Reason Onset Date Comments Chronic Care Conference Provider Overview 07/22/2011 Encounter Details Date Type Department Care Team Description 07/22/2011 Telephone [facility] Tiffany Leonard [facility] Tammy Marinelli MD Conference Provider [address] Overview [place] [phone] Social History Tobacco Use Types Packs/Day Years Used Date Smoking Tobacco: Former Cigarettes Quit : 05/14/1988 Smokeless Tobacco: Never Alcohol Use Standard Drinks/Week Comments No 0 (1 standard drink = 0.6 oz pure alcoho l) Sex Assigned at Date Recorded Female 05/22/2021 3:03 PM CDT documented as of this encounter Miscellaneous Notes Telephone Encounter - Tiffany Leonard MD - 07/22/2011 1:21 PM CDT Chronic Care Coordination Provider Overview (C3PO) Met in consultation for: Diabetes Mellitus and Lipids Parameters Addressed: LDL Recommended follow up: Has lab follow up in 3 months Considerations: Recently increased Pravachol from 20 mg to 40 mg and will recheck in 3 months. reassess after that time. Goal LDL<100. Reviewed. Tiffany Leonard MD Internal Medicine electronically signed documented in this encounter Plan of Treatment Not on filedocumented as of this encounter Visit Diagnoses Not on filedocumented in this encounter Care Teams Production Manufacturing Worker Relationship Specialty Start Date End Date Tiffany Leonard MD PCP - General 04/16/01 05/23/21 documented as of this encounter
--- OUTSIDE RECORDS SUMMARY | 2021-12-25 14:08 | XMS_ITS | Encounter Summary ---
:1945 Author Organization [facility] Address [address] [place] [address]. [place] [address] Care Team Providers Name Role Phone Tiffany Leonard MD Primary Care Provider [phone] Reason for Visit Reason Onset Date Comments Refill Request 01/10/2013 metformin Encounter Details Date Type Department Care Team Description 01/10/2013 Refill [facility] Tiffany Leonard R efill Request Clinic Tammy BARRIENTOS (metformin) [address] [address] [address] [place] [phone] Social History Tobacco Use Types Packs/Day Years Used Date Smoking Tobacco: Former Cigarettes Quit : 05/14/1988 Smokeless Tobacco: Never Alcohol Use Standard Drinks/Week Comments No 0 (1 standard drink = 0.6 oz pure alcoho l) Sex Assigned at Date Recorded Female 05/22/2021 3:03 PM CDT documented as of this encounter Miscellaneous Notes Telephone Encounter - Abimael Rakel - 01/10/2013 4:09 PM CST RF request for metformin Ok per RN protocol x3mos since mail order pharmacy. Reminder on refill to schedule appt Last related ov 12-31-11 BP Readings from Last 1 Encounters: 12/31/11 120/68 Recent Labs Lab Test 04/12/12 0845 12/31/11 0930 CHOL 165 174 HDL 36* 34* LDL 79 100 TRIG 253* 199* CHOLHDLRATIO 4.6 5.1* A1C 5.7 04/12/2012 A1C 6.0 12/31/2011 A1C 5.9 05/05/2011 A1C 5.9 10/22/2010 A1C 5.8 05/30/2010 Creatinine Date Value Range Status 04/12/2012 0.61 0.52 - 1.04 mg/dL Final ] ALT 18 04/12/2012 (needed for combination meds ie: Avandamet) Rakel Varghese RN -Encounter/OV: every 6 months -BP <130/80 every 6 months -Hgb A1c every 3 months if >7 -Hgb A1c every 6 months if <7 -Creatinine yearly ER OPERATOR documented in this encounter Plan of Treatment Not on filedocumented as of this encounter Visit Diagnoses Diagnosis Type 2 diabetes, HbA1c goal < 7% (H) - P rimary Type II or unspecified type diabetes aubrey litus without mention of complication, not stated as uncontrolled documented in this encounter Care Teams Filament Tester Relationship Specialty Start Date End Date Tiffany Leonard MD PCP - General 04/16/01 05/23/21 documented as of this encounter
--- OUTSIDE RECORDS SUMMARY | 2021-12-25 14:08 | XMS_ITS | Encounter Summary ---
:1945 Author Organization [facility] Address [facility] [place] [address] Care Team Providers Name Role Phone Tiffany Leonard MD Primary Care Provider [phone] Encounter Details Date Type Department Care Team Description 04/09/2011 Orders Only [facility] Tiffany Leonard ERRONEOUS Clinic Cindy Marinelli MD ENCOUNTER--DISREGARD [address] (Primary Dx) [place] [phone] Social History Tobacco Use Types Packs/Day Years Used Date Smoking Tobacco: Former Cigarettes Quit : 05/14/1988 Alcohol Use Standard Drinks/Week Comments No 0 (1 standard drink = 0.6 oz pure alcoho l) Sex Assigned at Date Recorded Female 05/22/2021 3:03 PM CDT documented as of this encounter Plan of Treatment Not on filedocumented as of this encounter Visit Diagnoses Diagnosis ERRONEOUS ENCOUNTER--DISREGARD - Primary documented in this encounter Care Teams Industrial Machine System Technician Relationship Specialty Start Date End Date Tiffany Leonard MD PCP - General 04/16/01 05/23/21 documented as of this encounter
--- OUTSIDE RECORDS SUMMARY | 2021-12-25 14:08 | XMS_ITS | Encounter Summary ---
:1945 Author Organization [facility] Address [address] [place] [address]. [place] [address] Care Team Providers Name Role Phone Tiffany Leonard MD Primary Care Provider [phone] Reason for Visit Reason Onset Date Comments Refill Request 02/02/2013 Losartan Encounter Details Date Type Department Care Team Description 02/02/2013 Refill [facility] Tiffany Leonard R efill Request Clinic Tammy BARRIENTOS (Losartan ) [address] [address] [address] [place] [phone] Social History Tobacco Use Types Packs/Day Years Used Date Smoking Tobacco: Former Cigarettes Quit : 05/14/1988 Smokeless Tobacco: Never Alcohol Use Standard Drinks/Week Comments No 0 (1 standard drink = 0.6 oz pure alcoho l) Sex Assigned at Date Recorded Female 05/22/2021 3:03 PM CDT documented as of this encounter Miscellaneous Notes Telephone Encounter - Rakel Varghese - 02/03/2013 1:50 PM CST Called pt and left message to call us back if she needs her losartan refilled. Told pt she is due for appt and has been notified of this multiple times. Rakel Varghese RN LEAK INSPECTOR HELPER Telephone Encounter - Tash Smith - 02/02/2013 1:13 PM CST We sent her reminder letter's on 12/04/12, 12/02/12, and 11/09/12. She hasn't been seen. I called the pt and left a message for the pt to call us back. Last seen: 12/31/[address] Leonard BP Readings from Last 4 Encounters: 12/31/11 120/68 08/16/11 178/81 07/14/11 130/62 03/11/11 120/66 Potassium Date Value Range Status 04/12/2012 3.9 3.4 - 5.3 mmol/L Final Creatinine Date Value Range Status 04/12/2012 0.61 0.52 - 1.04 mg/dL Final Tash Smith RN. 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
--- OUTSIDE RECORDS SUMMARY | 2021-12-25 14:08 | XMS_ITS | Encounter Summary ---
:1945 Author Organization [facility] Address [address] [place] [address] Care Team Providers Name Role Phone Tiffany Leonard MD Primary Care Provider Encounter Details Date Type Department Care Team Description 04/12/2012 Orders Only [facility] Typ e 2 diabetes, HbA1C goal < 7% (H); [facility] Type 2 diabetes mellitus wit h proteinuria or microalbuminuria; [id number] Hyperlipidemia LDL goal <100 [place] [address] Social History Tobacco Use Types Packs/Day [...] Diagnosis Comme nts ALBUMIN RANDOM URINE Routine 04/12/2012 8:46 Type 2 diabetes, HbA1C Results for this QUANTITATIVE AM SUPERVISOR CIGAR MAKING MACHINE goal < 7% (H) procedure are in Type 2 diabetes the results mellitus with section. proteinuria or microalbuminuria LIPID REFLEX TO Routine 04/12/2012 8:45 Type 2 diabetes, HbA1C Results for this DIRECT LDL PANEL AM SUPERVISOR CIGAR MAKING MACHINE goal < 7% (H) procedure are in Type 2 diabetes the results mellitus with section. proteinuria or microalbuminuria Hyperlipidemia LDL goal <100 HEMOGLOBIN A1C Routine 04/12/2012 8:45 Type 2 diabetes, HbA1C Results for this AM SUPERVISOR CIGAR MAKING MACHINE goal < 7% (H) procedure are in Type 2 diabetes the results mellitus with section. proteinuria or microalbuminuria COMPREHENSIVE Routine 04/12/2012 8:45 Type 2 diabetes, HbA1C R esults for this METABOLIC PANEL AM SUPERVISOR CIGAR MAKING MACHINE goal < 7% (H) procedure are in Type 2 diabetes the results mellitus with section. proteinuria or microalbuminuria Hyperlipidemia LDL goal <100 documented in this encounter Results Microalbumin quantitative random urine (04/12/2012 8:46 AM SUPERVISOR CIGAR MAKING MACHINE) P athologist Signature Creatinine 106 mg/dL [facility] Urine [facility] Albumin Urine 20 mg/L [facility] mg/L [facility] Albumin Urine 18.87 0 - 25 [facility] mg/g Cr mg/g Cr [facility] Specimen Anatomical Collection Method Collection Time Receive d Time (Source) Location / / Volume Laterality Urine specimen 04/12/2012 8:46 AM 013 8:47 (specimen) SUPERVISOR CIGAR MAKING MACHINE AM SUPERVISOR CIGAR MAKING MACHINE Tiffany Leonard MD LAB - URINE ORDERABLES Performing Organization Address City/State/ZIP Code Phon e Number [facility] [address] [place], [place] [id number] [place] [address] LABS (ABNORMAL) Comprehensive metabolic panel (04/12/2012 8:45 AM SUPERVISOR CIGAR MAKING MACHINE) P athologist Signature Sodium 139 133 - 144 [facility] mmol/L [facility] Potassium 3.9 3.4 - 5.3 [facility] mmol/L [facility] Chloride 100 94 - 109 [facility] mmol/L [facility] Carbon Dioxide 26 20 - 32 [facility] mmol/L [facility] Anion Gap 14 6 - 17 [facility] mmol/L [facility] Glucose 104 (H) 60 - 99 [facility] mg/dL [facility] Urea Nitrogen 17 7 - 30 [facility] mg/dL [facility] Creatinine 0.61 0.52 - [facility] 1.04 mg/dL [facility] GFR Estimate >90 >60 [facility] mL/min/1.7 [facility] m2 LAB GFR Estimate If >90 >60 [facility] Black mL/min/1.7 [facility] m2 LAB Calcium 9.6 8.5 - 10.4 [facility] mg/dL [facility] Bilirubin Total 0.5 0.2 - 1.3 [facility] mg/dL [facility] Albumin 4.1 3.3 - 4.9 [facility] g/dL [facility] Comment: Reference range changed on 11/01. Protein Total 7.4 6.8 - 8.8 g/dL [facility] Comment: As of 07, reference range reflects plasma specimen type. Alkaline Phosphatase 71 40 - 150 U/L [facility] EW [facility] ALT 18 0 - 50 U/L [facility] CLIN IC LAB AST 19 0 - 45 U/L [facility] CLIN IC LAB Specimen Anatomical Collection Method Collection Time Receive d Time (Source) Location / / Volume Laterality Blood specimen 04/12/2012 8:45 AM 013 8:46 (specimen) SUPERVISOR CIGAR MAKING MACHINE AM SUPERVISOR CIGAR MAKING MACHINE Tiffany Leonard MD LAB - BLOOD ORDERABLES Performing Organization Address City/State/ZIP Code Phon e Number [facility] [address] [place] [address] [facility] [address] [place] [address] (ABNORMAL) Lipid panel reflex to direct LDL (04/12/2012 8:45 AM SUPERVISOR CIGAR MAKING MACHINE) athologist Signature Cholesterol 165 0 - 200 [facility] mg/dL CLINIC LAB Comment: LDL Cholesterol is the primary guide to therapy. The NCEP recommends further evaluation of: patients with cholesterol greater than 200 mg/dL if additional risk facto rs are present, cholesterol greater than 240 mg/dL, triglycerides greater than 1 50 mg/dL, or HDL less than 40 mg/dL. Triglycerides 253 (H) 0 - 150 mg/dL [facility] HDL Cholesterol 36 (L) 50 - 110 mg/dL [facility] LDL Cholesterol Calculated 79 0 - 129 mg/dL [facility] Comment: LDL Cholesterol is the primary guide to therapy: LDL-cholesterol goal in high risk patients is <100 mg/dL and in very high risk patients is <70 mg/dL. VLDL-Cholesterol 51 (H) 0 - 30 mg/dL [facility] Cholesterol/HDL Ratio 4.6 0.0 - 5.0 [facility] Specimen Anatomical Collection Method Collection Time Receive d Time (Source) Location / / Volume Laterality Blood specimen 04/12/2012 8:45 AM 02/11/2 013 8:46 (specimen) SUPERVISOR CIGAR MAKING MACHINE AM SUPERVISOR CIGAR MAKING MACHINE Tiffany Leonard MD LAB - BLOOD ORDERABLES Performing Organization Address City/State/ZIP Code Phon e Number [facility] [address] [facility] [place] [address] [facility] [address] [place] [address] Hemoglobin A1c (04/12/2012 8:45 AM SUPERVISOR CIGAR MAKING MACHINE) P athologist Signature Hemoglobin A1C 5.7 4.3 - 6.0 [facility] % [facility] Specimen Anatomical Collection Method Collection Time Receive d Time (Source) Location / / Volume Laterality Blood specimen 04/12/2012 8:45 AM 013 8:46 (specimen) SUPERVISOR CIGAR MAKING MACHINE AM SUPERVISOR CIGAR MAKING MACHINE Tiffany Leonard MD LAB - BLOOD ORDERABLES Performing Organization Address City/[facility]/ZIP Code Phon e Number [facility] [address] [facility] [place] [address] [address] [facility] [address] 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
--- OUTSIDE RECORDS SUMMARY | 2021-12-25 14:08 | XMS_ITS | Encounter Summary ---
:1945 Author Organization [facility] Address [address] [place] [address]. [place] [address] Care Team Providers Name Role Phone Tiffany Leonard MD Primary Care Provider [phone] Reason for Visit Reason Onset Date Comments Refill Request 03/24/2012 pravachol Encounter Details Date Type Department Care Team Description 03/24/2012 MyC Refill [facility] Tiffany Leonard [facility] Tammy Marinelli MD (pravachol) [id number] [address] [facility] [place] [place] [id number] [phone] Social History Tobacco Use Types Packs/Day Years Used Date Smoking Tobacco: Former Cigarettes Quit : 05/14/1988 Smokeless Tobacco: Never Alcohol Use Standard Drinks/Week Comments No 0 (1 standard drink = 0.6 oz pure alcoho l) Sex Assigned at Date Recorded Female 05/22/2021 3:03 PM CDT documented as of this encounter Miscellaneous Notes Telephone Encounter - Rakel Varghese - 03/24/2012 9:53 AM 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 TRUCK 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 Message from Luis Alberto: Original authorizing provider: Tiffany Leonard MD, MD Nunez Melina Quinn would like a refill of the following medications: pravastatin (PRAVACHOL) 40 MG tablet [Tiffany Leonard MD, ] Preferred pharmacy: [facility] pharmacy in [place] Comment: I received a letter from [facility] (03/17/12) telling me they are unable to fill my prescription for PRAVASTATIN 40 MG because they are experiencing problelms obtaining the medication neeeded to fill this Rx.Could I get another prescription called into [facility] pharmacy in [place]? STRIAL TRUCK MECHANIC documented in this encounter Plan of Treatment Not on filedocumented as of this encounter Visit Diagnoses Diagnosis Hyperlipidemia LDL goal <100 - Primary Other and unspecified hyperlipidemia documented in this encounter Care Teams Carrot Buncher Relationship Specialty Start Date End Date Tiffany Leonard MD PCP - General 04/16/01 05/23/21 documented as of this encounter
--- OUTSIDE RECORDS SUMMARY | 2021-12-25 14:08 | XMS_ITS | Encounter Summary ---
:1945 Author Organization [facility] Address [address] [place] [address]. [place] [address] Care Team Providers Name Role Phone Tiffany Leonard MD Primary Care Provider [phone] Reason for Visit Reason Onset Date Comments Refill Request 02/15/2013 atenolol Encounter Details Date Type Department Care Team Description 02/15/2013 Refill [facility] Tiffany Leonard R efill Request Clinic Tammy BARRIENTOS (atenolol) [address] [address] [address] [place] [phone] Social History Tobacco Use Types Packs/Day Years Used Date Smoking Tobacco: Former Cigarettes Quit : 05/14/1988 Smokeless Tobacco: Never Alcohol Use Standard Drinks/Week Comments No 0 (1 standard drink = 0.6 oz pure alcoho l) Sex Assigned at Date Recorded Female 05/22/2021 3:03 PM CDT documented as of this encounter Miscellaneous Notes Telephone Encounter - Preethi Franco - 02/15/2013 3:25 PM CST RF request for atenolol Does not meet standard requirement for RN refill protocol. Pt past due for an OV, no appointment scheduled, pt informed via MyChart. Pt's pharmacy is [facility] unable to less then 3 mos d/t cost. HUGO: 12/31/11 Last Refill: 12/14/12 #180 BP Readings from Last 1 Encounters: 12/31/11 120/68 Potassium Date Value Range Status 04/12/2012 3.9 3.4 - 5.3 mmol/L Final Creatinine Date Value Range Status 04/12/2012 0.61 0.52 - 1.04 mg/dL Final Preethi Franco RN [facility] [employer] 3D SPECIALIST documented in this encounter Plan of Treatment Not on filedocumented as of this encounter Visit Diagnoses Diagnosis Unspecified cardiovascular disease - Shira mcleod documented in this encounter Care Teams Child Care Leader Relationship Specialty Start Date End Date Tiffany Leonard MD PCP - General 04/16/01 05/23/21 documented as of this encounter
--- OUTSIDE RECORDS SUMMARY | 2021-12-25 14:08 | XMS_ITS | Encounter Summary ---
:1945 Author Organization [facility] Address [address] [place] [address]. [place] [address] Care Team Providers Name Role Phone Tiffany Leonard MD Primary Care Provider [phone] Reason for Visit Reason Onset Date Comments Refill Request 12/02/2012 losartan Encounter Details Date Type Department Care Team Description 12/02/2012 Refill [facility] Tiffany Leonard R efill Request Clinic Tammy BARRIENTOS (losartan) [address] [address] [facility] [place] [phone] Social History Tobacco Use Types Packs/Day Years Used Date Smoking Tobacco: Former Cigarettes Quit : 05/14/1988 Smokeless Tobacco: Never Alcohol Use Standard Drinks/Week Comments No 0 (1 standard drink = 0.6 oz pure alcoho l) Sex Assigned at Date Recorded Female 05/22/2021 3:03 PM CDT documented as of this encounter Miscellaneous Notes Telephone Encounter - Silke Briscoe - 12/02/2012 1:12 PM CDT Medication requested: losartan Date of last office visit related to request: 12/31/2011 Date last filled: 07/16/2012 qty 90 R-1 Labs pertaining to med: BP Readings from Last 3 Encounters: 12/31/11 120/68 08/16/11 178/81 05/14/12 130/62 Creatinine Date Value Range Status 04/12/2012 0.61 0.52 - 1.04 mg/dL Final Potassium Date Value Range Status 04/12/2012 3.9 3.4 - 5.3 mmol/L Final Reminder letter sent. 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
--- OUTSIDE RECORDS SUMMARY | 2021-12-25 14:08 | XMS_ITS | Encounter Summary ---
:1945 Author Organization [facility] Address [address] [place] [address]. [place] [address] Care Team Providers Name Role Phone Tiffany Leonard MD Primary Care Provider [phone] Reason for Visit Reason Onset Date Comments Refill Request 07/16/2012 prevacid, tenormin, cozaar, pravachol Encounter Details Date Type Department Care Team Description 07/16/2012 MyC Refill [facility] Tiffany Leonard Refill [facility] Tammy Marinelli MD (prevacid, tenormin, [address] [address] SHAYE coboszaar... [place], [place] [facility] [place] [phone] Social History Tobacco Use Types Packs/Day Years Used Date Smoking Tobacco: Former Cigarettes Quit : 05/14/1988 Smokeless Tobacco: Never Alcohol Use Standard Drinks/Week Comments No 0 (1 standard drink = 0.6 oz pure alcoho l) Sex Assigned at Date Recorded Female 05/22/2021 3:03 PM CDT documented as of this encounter Miscellaneous Notes Telephone Encounter - Rakel Varghese - 07/16/2012 2:31 PM CDT RF request for prevacid, tenormin, cozaar and pravachol Ok per RN protocol x6mos. Last ov 12-31-11 BP Readings from Last 1 Encounters: 12/31/11 120/68 Potassium Date Value Range Status 04/12/2012 3.9 3.4 - 5.3 mmol/L Final ] Creatinine Date Value Range Status 04/12/2012 0.61 0.52 - 1.04 mg/dL Final ] Recent Labs Lab Test 04/12/12 0845 12/31/11 0930 CHOL 165 174 HDL 36* 34* LDL 79 100 TRIG 253* 199* CHOLHDLRATIO 4.6 5.1* AST 19 04/12/2012 ALT 18 04/12/2012 Rakel Varghese RN -BP <140/90 for Diabetics -BP <130/80 for Vascular Disease Telephone Encounter - Rakel Varghese - 07/16/2012 2:29 PM CDT Message from [facility]: Original authorizing provider: Tiffany Leonard MD, MD Mayra Quinn would like a refill of the following medications: LANsoprazole (PREVACID) 15 MG capsule [Tiffany Leonard MD, MD] atenolol (TENORMIN) 25 MG tablet [Tiffany Leonard MD, MD] losartan (COZAAR) 25 MG tablet [Tiffany Leonard MD, MD] pravastatin (PRAVACHOL) 40 MG tablet [Tiffany Leonard MD, ] Preferred pharmacy: [facility] - [address] Comment: Would you ask Dr. Leonard if she would send a Rx for Differin Gel 45 mg 0.1 pc Gel also? She prescribed this for me a few about three yrs. ago and I would appreciate it if she would send a new prescription. Thank you.......I don't think it is time for a 'full' visit yet. I think I was seen in Nov.and had lab work recently. 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
--- OUTSIDE RECORDS SUMMARY | 2021-12-25 14:08 | XMS_ITS | Encounter Summary ---
:1945 Author Organization [facility] Address [address] [place] [address]. [place] [address] Care Team Providers Name Role Phone Tiffany Leonard MD Primary Care Provider [phone] Reason for Visit Reason Onset Date Comments Refill Request 06/16/2011 Pravachol Encounter Details Date Type Department Care Team Description 06/16/2011 MyC Refill [facility] Tiffany Leonard [facility] Tammy Marinelli MD (Pravachol) [address] [address] [address] [place] [phone] Social History Tobacco Use Types Packs/Day Years Used Date Smoking Tobacco: Former Cigarettes Quit : 05/14/1988 Alcohol Use Standard Drinks/Week Comments No 0 (1 standard drink = 0.6 oz pure alcoho l) Sex Assigned at Date Recorded Female 05/22/2021 3:03 PM CDT documented as of this encounter Miscellaneous Notes Telephone Encounter - Shirin Kinney - 06/16/2011 11:14 AM CDT Last refilled 06/12/11 #90 Mirian Kinney RN. Telephone Encounter - Shirin Kinney - 06/16/2011 11:13 AM CDT Message from MyChart: Original authorizing provider: Tiffany Leonard MD, MD Mayra Quinn would like a refill of the following medications: pravastatin (PRAVACHOL) 20 MG tablet [Tiffany Leonard MD, ] Preferred pharmacy: [facility] Comment: I would like to request a refill of this Rx. documented in this encounter Plan of Treatment Not on filedocumented as of this encounter Visit Diagnoses Diagnosis Hyperlipidemia LDL goal <100 Other and unspecified hyperlipidemia documented in this encounter Care Teams Watch Repairer Apprentice Relationship Specialty Start Date End Date Tiffany Leonard MD PCP - General 04/16/01 05/23/21 documented as of this encounter
--- OUTSIDE RECORDS SUMMARY | 2021-12-25 14:08 | XMS_ITS | Encounter Summary ---
:1945 Author Organization [facility] Address [address] [place] [address]. [place] [address] Care Team Providers Name Role Phone Tiffany Leonard MD Primary Care Provider [phone] Reason for Visit Reason Onset Date Comments Refill Request 08/17/2011 Glucophage Medication Request 08/17/2011 [facility] Order Encounter Details Date Type Department Care Team Description 08/17/2011 MyC Refill [facility] Tiffany Leonard Refill [facility] Tammy Marinelli MD (Glucophage); [address] [address] [address] Medication Re... [facility] [phone] Social History Tobacco Use Types Packs/Day Years Used Date Smoking Tobacco: Former Cigarettes Quit : 05/14/1988 Smokeless Tobacco: Never Alcohol Use Standard Drinks/Week Comments No 0 (1 standard drink = 0.6 oz pure alcoho l) Sex Assigned at Date Recorded Female 05/22/2021 3:03 PM CDT documented as of this encounter Miscellaneous Notes Telephone Encounter - Shirin Kinney - 08/18/2011 10:15 AM CDT Refill PSO for quantity of: Last seen: 07/14/11 Horacio fountain Last filled: 07/14/11 #180 RF-0 Last A1c 05/05/11 (5.9) Message handled by Nurse Triage. Mirian Chan Telephone Encounter - Shirin Kinney - 08/18/2011 10:13 AM CDT Message from Luis Alberto: Original authorizing provider: Tiffany Leonard MD, MD Mayra Quinn would like a refill of the following medications: metFORMIN (GLUCOPHAGE-XR) 500 MG 24 hr tablet [Tiffany Leonard MD, MD] Preferred pharmacy: [facility] Comment: Could I request a refill for the Metformin....thanks. documented in this encounter Plan of Treatment Not on filedocumented as of this encounter Visit Diagnoses Diagnosis Type 2 diabetes, HbA1c goal < 7% (H) - P rimary Type II or unspecified type diabetes aubrey litus without mention of complication, not stated as uncontrolled documented in this encounter Care Teams Equipment Oiler Relationship Specialty Start Date End Date Tiffany Leonard MD PCP - General 04/16/01 05/23/21 documented as of this encounter
--- OUTSIDE RECORDS SUMMARY | 2021-12-25 14:09 | XMS_ITS | Encounter Summary ---
:1945 Author Organization [facility] Address [address] [place] [address] Care Team Providers Name Role Phone Tiffany Leonard MD Primary Care Provider [phone] Reason for Visit Reason Comments ER F/U follow up to ER visit post f all in her bathroom. States is doing well and vision has improved. Encounter Details Date Type Department Care Team Description 03/11/2011 Office Visit [facility] Tiffany Leonard ASCVD (ar teriosclerotic cardiovascular disease); Clinic Tammy Marinelli MD Syncope and collapse [address] [address] [facility] [place] [phone] Social History Tobacco Use Types Packs/Day Years Used Date Smoking Tobacco: Former Cigarettes Quit : 05/14/1988 Alcohol Use Standard Drinks/Week Comments No 0 (1 standard drink = 0.6 oz pure alcoho l) Sex Assigned at Date Recorded Female 05/22/2021 3:03 PM CDT documented as of this encounter Last Filed Vital Signs Vital Sign Reading Time Taken Comments Blood Pressure 120/66 03/11/2011 3:12 PM ACCESS REGISTRAR Pulse 66 03/11/2011 3:12 PM ACCESS REGISTRAR Temperature - - Respiratory Rate 15 03/11/2011 3:12 PM ACCESS REGISTRAR Oxygen Saturation - - Inhaled Oxygen Concentration - - Weight 71.7 kg (158 lb) 03/11/2011 3:12 PM ACCESS REGISTRAR Height 163.8 cm (5' 4.5) 03/11/2011 3:12 PM ACCESS REGISTRAR Body Mass Index 26.7 03/11/2011 3:12 PM ACCESS REGISTRAR documented in this encounter Progress Notes Tiffany Leonard MD - 03/11/2011 3:19 PM CST Chief Complaint Patient presents with ??? ER F/U follow up to ER visit post fall in her bathroom. States is doing well and vision has improved. SUBJECTIVE: Mayra Quinn is a 65 year old female here for follow up of ER visit. 02/28/2011, after several episodes of diarrhea, she had an episode where she fell in the bathroom; ER Records reviewed ( probable dehydration). Was seen for a fall in her bathroom after having vomitingand diarrhea for several hours stood up from the toilet and fainted. This occurred on the and was not seen until last week. Was seen because she had noted visual changes and was concerned. Was notsure if she needs a follow up CT Was discharged when 03/05/11. Treatment/Evaluation included Head CT. Since that time has significantly improved. Chitra sOorio LPN ROS: CONSTITUTIONAL:NEGATIVE for fever, chills, change in weight INTEGUMENTARY/SKIN: NEGATIVE for worrisome rashes, moles or lesions RESP:NEGATIVE for significant cough or SOB CV: no chest pain or shortness of breath ; pertinent hx of heart disease. GI: no nausea or vomiting MUSCULOSKELETAL: NEGATIVE for significant arthralgias or myalgia NEURO: no further episodes of Syncope ENDOCRINE: Goals LDL<100, not currently at goal. Recent Labs Lab Test 10/22/10 1057 05/30/10 0803 ??? CHOL 191 191 ??? HDL 33* 34* ??? LDL 115 115 ??? TRIG 214* 210* ??? CHOLHDLRATIO 5.7* 5.6* HEME/ALLERGY/IMMUNE: taking ASA PSYCHIATRIC: NEGATIVE for changes in mood or affect OBJECTIVE: BP 120/66 Pulse 66 Resp 15 Ht 5' 4.5 (1.638 m) Wt 158 lb (71.668 kg) BMI 26.70 kg/m2 GENERAL APPEARANCE: healthy, alert and no distress RESP: lungs clear to auscultation - no rales, rhonchi or wheezes CV: regular rates and rhythm, normal S1 S2, no murmur noted ABDOMEN: soft, nontender, no HSM or masses and bowel sounds normal BACK: No CVA tenderness Extremities: no peripheral edema or tenderness, peripheral pulses normal MS: extremities normal- no gross deformities noted, no erythema, FROM noted in all extremities SKIN: no suspicious lesions or rashes NEURO: reflexes symmetric; no facial asymmetry; neuro exam nonfocal PSYCH: mentation appears normal ER Records reviewed; ASSESSMENT/PLAN: 429.2D ASCVD (arteriosclerotic cardiovascular disease) Comment: Hx of ASCVD; Syncope on 02/28/2011; small vessel changes on CT. MRI done 8 years ago in [place]; pt will get copy for comparison Lipids goal should be LDL<100 Hospers 10-year CHD Risk Score: 20% (Diabetic) Values used to calculate score: Age: 65 years -- Points: 12 Total Cholesterol: 191 mg/dL -- Points: 1 HDL Cholesterol: 33 mg/dL -- Points: 2 Systolic BP (untreated): 120 mmHg -- Points: 0 The patient is not a smoker. -- Points: 0 The patient has a diagnosis of diabetes. -- Points: 20% Risk The patient does not have a family history of CHD. -- Points:0 Pt with hx of SC at age 42, Diabetes; BP well controlled. Plan: MRI Brain w/o contrast, MRI Angiogram head w/o contrast* 780.2 Syncope and collapse Comment: fall in bathroom 02/28/2011; Plan: MRI Angiogram head w/o contrast* Tiffany Leonard MD Internal Medicine electronically signed 25 minutes is spent with patient, over 50% of that time spent providing counselling, discussing and reviewing meds and potential side effects. SS REGISTRAR documented in this encounter Nursing Notes 03/11/2011 3:00 PM CST >> MASSIEL OSORIO Benito Mar 11, 2011 3:19 PM Patient presents with: ER F/U - follow up to ER visit post fall in her bathroom. States is doing well and vision has improved. Initial BP 120/66 Pulse 66 Resp 15 Ht 5' 4.5 (1.638 m) Wt 158 [...] as of this encounter Visit Diagnoses Diagnosis ASCVD (arteriosclerotic cardiovascular d isease) Unspecified cardiovascular disease Syncope and collapse documented in this encounter Care Teams Director Child Relationship Specialty Start Date End Date Tiffany Leonard MD PCP - General 04/16/01 05/23/21 documented as of this encounter
--- OUTSIDE RECORDS SUMMARY | 2021-12-25 14:09 | XMS_ITS | Encounter Summary ---
:1945 Author Organization [place] Address [address] [place] [address] Care Team Providers Name Role Phone Tiffany Leonard MD Primary Care Provider [phone] Reason for Visit Reason Comments Diabetes follow up Chronic Care Conference Provider Overview will need fo llow up labs in 3 months; due to need for med adjustments to meet treatment goals Encounter Details Date Type Department Care Team Description 05/30/2010 Office Visit [facility] Tiffany Leonard Type 2 di abetes, HbA1C goal < 7% (H) (Primary Dx); Clinic Tammy Marinelli MD Gastritis; [address] [address] [address] 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; [address] [place], [place] Hyperlipidemia LDL goal <100 ; [place] [address] Unspecified cardiovascular disease [id number] Social History Tobacco Use Types Packs/Day Years Used Date Smoking Tobacco: Former Cigarettes Quit : 05/14/1988 Alcohol Use Standard Drinks/Week Comments No 0 (1 standard drink = 0.6 oz pure alcoho l) Sex Assigned at Date Recorded Female 05/22/2021 3:03 PM CDT documented as of this encounter Last Filed Vital Signs Vital Sign Reading Time Taken Comments Blood Pressure 120/62 05/30/2010 12:03 PM CDT Pulse 62 05/30/2010 12:03 PM CDT Temperature - - Respiratory Rate 18 05/30/2010 12:03 PM CDT Oxygen Saturation - - Inhaled Oxygen Concentration - - Weight 72.2 kg (159 lb 1.6 oz) 05/30/2010 12:03 PM CDT Height 162.6 cm (5' 4) 05/30/2010 12:03 PM CDT Body Mass Index 27.31 05/30/2010 12:03 PM CDT documented in this encounter Patient Instructions Patient InstructionsTiffany Leonard - 06/09/2010 10:34 PM CDT Diabetes goals reviewed A1C- if significantly elevated, may need to consider dose adjustment of Metformin Goal LDL<100 ; if not to goal, consider dose adjustment of Pravachol to 40 mg or change to Simvastatin. MICROALBUMIN 19.51 11/06/2009- close to border of microalbuminuria <20; if elevated, then recheck in 3 months and may need to consider adding low dose MONIQUE documented in this encounter Progress Notes Tiffany Leonard - 05/30/2010 12:16 PM CDT Chief Complaint Patient presents with ??? Diabetes follow up SUBJECTIVE: Mayra Quinn is a 64 year old year old female seen for a follow up visit; she has diabetes. Patient glucose self monitoring/averages: 3-5 times weekly. Symptoms of low blood sugar (hypoglycemia:sweating, shaky, weak, dizzy, blurred vision, confusion)? No. What is the date of your last eye exam? Less than 1 year ago. Hyperlipidemia. Recent Labs Lab Test 11/06/09 0828 06/05/09 1032 ??? CHOL 164 184 ??? HDL 28* 27* ??? LDL 81 94 ??? TRIG 273* 316* ??? CHOLHDLRATIO 5.8* 6.8* Pt on Pravachol- well tolerated; fasting labs done this AM- results pending. Problems taking medications regularly? no Side effects? no What are you doing for exercise outside of work or your daily activities? 4 Chitra Osorio LPN (Staff Signature) PHQ-2 Over the last two weeks- Have you been bothered by little interest or pleasure in doing things? No Over the last two weeks- Have you been been feeling down, depressed, or hopeless? No Other patient concerns: no BP Readings from Last 3 Encounters: 05/30/10 120/62 12/31/09 128/70 08/20/09 128/76 Chitra Osorio LPN Health maintenance reviewed and appropriate orders placed? Yes Chitra Osorio LPN sign and refresh note to pull in vitals A1C 5.8 05/30/2010 A1C 6.2 11/06/2009 A1C 7.9 06/05/2009 Recent Labs Lab Test 11/06/09 0828 06/05/09 1032 ??? CHOL 164 184 ??? HDL 28* 27* ??? LDL 81 94 ??? TRIG 273* 316* ??? CHOLHDLRATIO 5.8* 6.8* Wt Readings from Last 3 Encounters: 05/30/10 159 lb 1.6 oz (72.167 kg) 12/31/09 164 lb (74.39 kg) 08/20/09 178 lb 3.2 oz (80.831 kg) Current outpatient prescriptions Medication Sig ??? Cholecalciferol 2000 UNIT tablet Take 1 tablet by mouth daily. ??? LANsoprazole (PREVACID) 15 MG capsule Take 1 capsule by mouth daily. ??? ACCU-CHEK STEPHEN STRP TEST 1-2 TIMES DAILY ??? ACCU-CHEK MULTICLIX LANCETS MISC TEST 1-2 TIMES DAILY ??? ACCU-CHEK STEPHEN SOLN use as directed changing bottle every 3 months ??? MONIQUE NOT PRESCRIBED (INTENTIONAL) not prescribed previously tried and reported cough ??? METFORMIN HCL 500 MG PO TB24 Two DAILY WITH MEAL ??? ATENOLOL 25 MG OR TABS 1 tablet twice daily ??? FOSAMAX 70 MG OR TABS 1 Tablet Weekly ??? PRAVACHOL 20 MG OR TABS 1 TABLET AT BEDTIME ??? NEURONTIN 600 MG OR TABS 1 TABLET AM and 2 in PM ??? DIFFERIN 0.1 % EX GEL APPLY TO AFFECTED AREA ONCE DAILY BEFORE BEDTIME ??? MUCINEX MAXIMUM STRENGTH 1200 MG OR TB12 1 TABLET EVERY 12 HOURS NEEDED ??? ASPIRIN 81 MG OR TABS 1 TABLET DAILY Histories reviewed and updated in Epic. REVIEW OF SYSTEMS: Complete/DM ROS - C: NEGATIVE for fatigue, unexpected change in weight I: NEGATIVE for worrisome rashes, moles or lesions E: NEGATIVE for acute vision problems or changes; notes cataracts will wait until August to consider surgery.; R: NEGATIVE for significant cough or shortness of breath CV: NEGATIVE for chest pain, palpitations or new or worsening peripheral edema CV: BP well controlled, no chest pain : NEGATIVE for frequency, dysuria, or hematuria MUSCULOSKELETAL:flat feet, calluses; no acute joint issues ENDOCRINE: Diabetes - see above H: NEGATIVE for easy bruising or bleeding problems P: NEGATIVE for changes in mood or affect and Cardiovascular risk analysis - LDL goal is under 100, diabetic, hypertension, active lifestyle EXAM: Vitals: BP 120/62 Pulse 62 Resp 18 Ht 5' 4 (1.626 m) Wt 159 lb 1.6 oz (72.167 kg) BMI 27.31 kg/m2 BMIE= Body mass index is 27.31 kg/(m^2). GENERAL APPEARANCE: alert and no acute distress PSYCH: mentation appears normal and affect normal/bright EYES: sclera clear NECK: No carotid bruits. RESP: lungs clear to auscultation - no rales, rhonchi or wheezes CV: regular rate and rhythm, normal S1 S2, no S3 or S4 and no murmur, click or rub - ABDOMEN: soft, nontender, no HSM or masses and bowel sounds normal. No abdominal bruits. EXT: no cyanosis or edema in lower extremities SKIN: no venous stasis changes NEURO: mild sensory loss in feet LYMPHATICS: No axillary, cervical, inguinal, or supraclavicular nodes Foot Exam: normal DP and PT pulses, no ulcerative lesions, reduced sensation noted at forefoot; toessensation OK ASSESSMENT/PLAN: 250.00FV Type 2 diabetes, HbA1C goal < 7% (primary encounter diagnosis) Comment: LDL 81 11/06/2009- has been well controlled; labs today A1C 6.2 11/06/2009- A1C at goal; on Metformin 500 mg MICROALBUMIN 19.51 11/06/2009- close to border of microalbuminuria <20; if elevated, then recheck in 3 months and may need to consider adding low dose MONIQUE Plan: MetFORmin (GLUCOPHAGE-XR) 500 MG 24 hr tablet Consider low dose MONIQUE Patient Instructions Diabetes goals reviewed A1C- if significantly elevated, may need to consider dose adjustment of Metformin Goal LDL<100 ; if not to goal, consider dose adjustment of Pravachol to 40 mg or change to Simvastatin. MICROALBUMIN 19.51 11/06/2009- close to border of microalbuminuria <20; if elevated, then recheck in 3 months and may need to consider adding low dose MONIQUE 535.50F Gastritis Comment: EGD 2003; GI recommended PPI indefinitely, past trial of Omeprazole not optimal. 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 Plan: pravastatin (PRAVACHOL) 20 MG tablet LDL 81 11/06/2009 - if not to goal, consider increasing Pravachol 40 mg; meds have been well tolerated. 429.2 Unspecified cardiovascular disease Comment: BP and HR well controlled Plan: atenolol (TENORMIN) 25 MG tablet Tiffany Leonard MD Internal Medicine electronically signed 25 minutes is spent with patient, over 50% of that time spent providing counselling, discussing and reviewing meds and potential side effects. documented in this encounter Nursing Notes 05/30/2010 11:30 AM CDT >> MASSIEL DILCIA Marcia May 30, 2010 12:16 PM Patient presents with: Diabetes - follow up Initial BP 120/62 Pulse 62 Resp 18 Ht 5' 4 (1.626 m) Wt 159 lb 1.6 oz (72.167 kg) BMI 27.31 kg/m2 Estimated Body mass index is 27.31 kg/(m^2) as calculated from the following: Height as of this encounter: 5' 4(1.626 m). Weight as of this encounter: 159 lb 1.6 oz(72.167 kg).. 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
--- OUTSIDE RECORDS SUMMARY | 2021-12-25 14:09 | XMS_ITS | Encounter Summary ---
:1945 Author Organization [place] Address [address] [place] [address] Care Team Providers Name Role Phone Tiffany Leonard MD Primary Care Provider [phone] Encounter Details Date Type Department Care Team Description 11/05/2010 Results Only [facility] Tiffany Leonard Co nlon, Hospital Results [address] [place], [place] [address] (Wo rk) Social History Tobacco Use Types [...] Name Priority Date/Time Associated Diagnosis Comme nts MA SCREENING Routine 11/05/2010 11:36 AM Results for this DIGITAL LEFT CDT procedure are i n the results section. documented in this encounter Results Mammo Screening digital left* (11/05/2010 11:36 AM CDT) Anatomical Region Laterality Modality Breast Left Other Specimen (Source) Anatomical Collection Method Collection Time Re ceived Time Location / / Volume Laterality 11/05/2010 11:36 AM CDT Impressions 11/12/2010 2:31 PM CDT SCREENING MAMMOGRAPHY, BILATERAL, DIGITA L w/CAD ??November 05, 2010. HISTORY/COMPARISON: ??[facility] 07/05/2009, 0 07/21/2007 BREAST PARENCHYMAL PATTERN: ??Heterogene ously dense. FINDINGS: ??Mild scarring in the upper-o uter left breast from prior surgery. Otherwise negative. ??No suspic ious findings ?? IMPRESSION: ??BI-RADS 2, BENIGN. RECOMMENDATION: ??Annual screening mammo graphy. Tiffany Leonard MD IMG MAMMOGRAPHY ORDERABLES documented in this encounter Visit Diagnoses Not on filedocumented in this encounter Care Teams Engine Turner Relationship Specialty Start Date End Date Tiffany Leonard MD PCP - General 04/16/01 05/23/21 documented as of this encounter
--- OUTSIDE RECORDS SUMMARY | 2021-12-25 14:09 | XMS_ITS | Encounter Summary ---
:1945 Author Organization [place] Address [address] [place] [address]. [place] [address] Care Team Providers Name Role Phone Tiffany Leonard MD Primary Care Provider [phone] Jr Landeros MD Primary Care Provider [phone] Jr Landeros MD Unavailable Reason for Visit Reason Onset Date Comments Refill Request 08/26/2010 Encounter Details Date Type Department Care Team Description 08/26/2010 MyC Refill [facility] Tiffany Leonard Co nlon, Refill Request Cindy BARRIENTOS [address] [address] [place] [address] [place] [address] [phone] (Wo rk) Social History Tobacco Use Types [...] on filedocumented in this encounter Care Teams Program Engineer Relationship Specialty Start Date End Date Tiffany Leonard MD PCP - General 04/16/01 05/23/21 Jr Landeros MD PCP - General Internal Medicine 05/24/21 [address], [place] [id number] Jr Landeros MD Assigned PCP 05/26/21 [address] [id number] documented as of this encounter
--- OUTSIDE RECORDS SUMMARY | 2021-12-25 14:09 | XMS_ITS | Encounter Summary ---
:1945 Author Organization [facility] Address [address] [place] [address] Care Team Providers Name Role Phone Tiffany Leonard MD Primary Care Provider [phone] Encounter Details Date Type Department Care Team Description 05/30/2010 Orders Only [facility] [place] roalbuminuria; [facility] Vitamin D deficiencies; [address] Type 2 diabetes, HbA1C goal < 7% (H); [place] [address] Hyperlipidemia LDL goal <100 ; [phone] [facility] Social History Tobacco Use Types Packs/Day Years [...] Name Priority Date/Time Associated Diagnosis Comme nts VITAMIN D DEFICIENCY Routine 05/30/2010 8:03 Vitamin D deficie ncies Results for this SCREENING AM CDT procedure are i n the results section. TSH WITH FREE T4 Routine 05/30/2010 8:03 Type 2 diabetes, HbA1 C Results for this REFLEX AM CDT goal < 7% (H) procedure are in the results section. LIPID REFLEX TO Routine 05/30/2010 8:03 Type 2 diabetes, HbA1C Results for this DIRECT LDL PANEL AM CDT goal < 7% (H) procedure are in Hyperlipidemia LDL goal the results <100 section. [facility] HEMOGLOBIN A1C Routine 05/30/2010 8:03 Type 2 diabetes, HbA1C Results for this AM CDT goal < 7% (H) procedure are in the results section. COMPREHENSIVE Routine 05/30/2010 8:03 Type 2 diabetes, HbA1C R esults for this METABOLIC PANEL AM CDT goal < 7% (H) procedure are in [facility] the results section. HCL ALBUMIN URINE Routine 05/30/2010 8:03 Microalbuminuria Res ults for this (INC CREAT) AM CDT procedure are i n the results section. documented in this encounter Results TSH with free T4 reflex (05/30/2010 8:03 AM CDT) athologist Signature TSH 1.87 0.4 - 5.0 [facility] mU/L CLIN[facility] LAB Specimen Anatomical Collection Method Collection Time Receive d Time (Source) Location / / Volume Laterality Blood specimen 05/30/2010 8:03 AM 011 8:04 (specimen) CDT AM CDT Tiffany Leonard MD LAB - BLOOD ORDERABLES Performing Organization Address City/State/ZIP Code Phon e Number [facility] [address] [place] [address] [facility] (ABNORMAL) Comprehensive metabolic panel (05/30/2010 8:03 AM CDT) athologist Signature Sodium 146 (H) 133 - 144 [place] mmol/L [facility] Potassium 4.2 3.4 - 5.3 [place] mmol/L [facility] Chloride 105 94 - 109 [place] mmol/L [facility] Carbon Dioxide 31 20 - 32 [place] mmol/L [facility] Anion Gap 11 6 - 17 [place] mmol/L [facility] Glucose 92 60 - 99 [place] mg/dL [facility] Urea Nitrogen 15 7 - 30 [facility] mg/dL [facility] Creatinine 0.63 0.52 - [facility] 1.04 mg/dL [facility] GFR Estimate >90 >60 [facility] mL/min/1.7 [facility] m2 LAB GFR Estimate If >90 >60 [place] mL/min/1.7 [facility] m2 LAB Calcium 9.6 8.5 - 10.4 [facility] mg/dL [facility] Bilirubin Total 0.5 0.2 - 1.3 [place] mg/dL [facility] Albumin 4.2 3.3 - 4.9 [place] g/dL [facility] Comment: Reference range changed on 11/01. Protein Total 7.1 6.8 - 8.8 g/dL [place] [facility] Comment: As of 07, reference range reflects plasma specimen type. Alkaline Phosphatase 58 40 - 150 U/L [facility] ALT 16 0 - 50 U/L [place] [facility] AST 20 0 - 45 U/L [facility] CLIN IC LAB Specimen Anatomical Collection Method Collection Time Receive d Time (Source) Location / / Volume Laterality Blood specimen 05/30/2010 8:03 AM 011 8:04 (specimen) CDT AM CDT Tiffany Leonard MD LAB - BLOOD ORDERABLES Performing Organization Address City/[facility]/ZIP Code Phon e Number [facility] [address] [place] [address] [facility] Hemoglobin A1c (05/30/2010 8:03 AM CDT) athologist Signature Hemoglobin A1C 5.8 4.3 - 6.0 [place] % [facility] Specimen Anatomical Collection Method Collection Time Receive d Time (Source) Location / / Volume Laterality Blood specimen 05/30/2010 8:03 AM 011 8:04 (specimen) CDT AM CDT Tiffany Leonard MD LAB - BLOOD ORDERABLES Performing Organization Address City/[facility] Phon e Number [facility] [address] [place], [place] [address] [facility] LAB (ABNORMAL) Lipid panel reflex to direct LDL (05/30/2010 8:03 AM CDT) athologist Signature Cholesterol 191 0 - 200 [facility] mg/dL CLINIC LAB Comment: LDL Cholesterol is the primary guide to therapy. The NCEP recommends further evaluation of: patients with cholesterol <200 mg/dL if additional risk factors are present, cholesterol >240 mg/dL, triglycerides >150 mg/dL, or HDL <40 mg/dL. Triglycerides 210 (H) 0 - 150 mg/dL [facility] HDL Cholesterol 34 (L) 50 - 110 mg/dL [facility] LDL Cholesterol Calculated 115 0 - 129 mg/dL [facility] Comment: LDL Cholesterol is the primary guide to therapy: LDL-cholesterol goal in high risk patients is <100 mg/dL and in very high risk patients is <70 mg/dL. VLDL-Cholesterol 42 (H) 0 - 30 mg/dL [facility] LAB Cholesterol/HDL Ratio 5.6 (H) 0.0 - 5.0 [facility] Specimen Anatomical Collection Method Collection Time Receive d Time (Source) Location / / Volume Laterality Blood specimen 05/30/2010 8:03 AM 011 8:04 (specimen) CDT AM CDT Tiffany Leonard MD LAB - BLOOD ORDERABLES Performing Organization Address City/[facility]/ZIP Code Phon e Number [address] [address] [facility] Vitamin D deficiency screening (05/30/2010 8:03 AM CDT) Component Value Ref Test Analysis Performed At Histogen Range Method Time Signature 25 [place] Vit D2 <5 ug/L [facility] 25 [place] Vit D3 46 ug/L [facility]S 25 [place] Vit D <51 30 - 75 [facility] total Season, race, dietary intake, and treatm ent affect the concentration of ug/L [place] [id number] D. Values may decrease during ye er months and increase [facility] during summer months. Values less than 30 ug/L may indicate Vitamin D deficiency. Specimen Anatomical Collection Method Collection Time Receive d Time (Source) Location / / Volume Laterality Blood specimen 05/30/2010 8:03 AM 011 8:04 (specimen) CDT AM CDT Tiffany Leonard MD LAB - BLOOD ORDERABLES Performing Organization Address City/State/ZIP Code Phon e Number [facility] [address] [place] [address] [facility] LABS (ABNORMAL) MICROALBUMIN (INC URINE CREAT) (05/30/2010 8:03 AM CDT) Patholo gist Method Time Signature Creatinine 158 mg/dL [facility] Urine [facility] Albumin Urine 46 mg/L [facility] mg/L [facility]S Albumin Urine 29.11 (H) 0 - 20 [facility] mg/g Cr mg/g Cr [facility]S Specimen Anatomical Collection Method Collection Time Receive d Time (Source) Location / / Volume Laterality 05/30/2010 8:03 AM 1 8:04 CDT AM CDT Tiffany Leonard MD LABORATORY Performing Organization Address City/State/[facility] Code Phon e Number [facility] [address] [place], [place] [id number] [place] [address] LABS documented in this encounter Visit Diagnoses Diagnosis Microalbuminuria Proteinuria Vitamin D deficiencies Unspecified vitamin D deficiency Type 2 diabetes, HbA1c goal < 7% (H) Type II or unspecified type diabetes aubrey litus without mention of complication, not stated as uncontrolled Hyperlipidemia LDL goal <100 Other and unspecified hyperlipidemia [facility] Unspecified cardiovascular disease documented in this encounter Care Teams Airline Captain Relationship Specialty Start Date End Date Tiffany Leonard MD PCP - General 04/16/01 05/23/21 documented as of this encounter
--- OUTSIDE RECORDS SUMMARY | 2021-12-25 14:09 | XMS_ITS | Encounter Summary ---
:1945 Author Organization [facility] Address [address] [place] [address]. [place] [address] Care Team Providers Name Role Phone Tiffany Leonard MD Primary Care Provider [phone] Reason for Visit Reason Onset Date Comments Refill Request 04/05/2011 Pravachol Encounter Details Date Type Department Care Team Description 04/05/2011 MyC Refill [facility] Tiffany Leonard Refill [facility] Tammy Marinelli MD (Pravachol) [address] [address] [address] [address] [phone] Social History Tobacco Use Types Packs/Day Years Used Date Smoking Tobacco: Former Cigarettes Quit : 05/14/1988 Alcohol Use Standard Drinks/Week Comments No 0 (1 standard drink = 0.6 oz pure alcoho l) Sex Assigned at Date Recorded Female 05/22/2021 3:03 PM CDT documented as of this encounter Miscellaneous Notes Telephone Encounter - Shirin Kinney - 04/07/2011 9:03 AM CST .Refill PSO for quantity of: Last seen:03/11/11 Horacio Last filled: 05/30/10 #90 RF-3 Last lipids 10/22/10 LDL-115 Mirian Chan CONTENT SPECIALIST Telephone Encounter - Shirin Kinney - 04/07/2011 8:56 AM NEWS CONTENT SPECIALIST Message from [employer]: Original authorizing provider: Tiffany Leonard MD, MD Mayra Quinn would like a refill of the following medications: pravastatin (PRAVACHOL) 20 MG tablet [Tiffany Leonard MD, ] Preferred pharmacy: - [facility]IL ORDER Comment: I don't think I remembered to ask for a new Rx for Pravastatin...... CONTENT SPECIALIST documented in this encounter Plan of Treatment Not on filedocumented as of this encounter Visit Diagnoses Diagnosis Hyperlipidemia LDL goal <100 - Primary Other and unspecified hyperlipidemia documented in this encounter Care Teams Battery Container Finishing Hand Relationship Specialty Start Date End Date Tiffany Leonard MD PCP - General 04/16/01 05/23/21 documented as of this encounter
--- OUTSIDE RECORDS SUMMARY | 2021-12-25 14:09 | XMS_ITS | Encounter Summary ---
:1945 Author Organization [facility] Address [address] [place] [address] Care Team Providers Name Role Phone Tiffany Leonard MD Primary Care Provider [phone] Encounter Details Date Type Department Care Team Description 11/06/2009 Orders Only [facility] Type 2 Valeria betes, HbA1c Goal < 7% (H); Clinic [place] Hyperlipide bren LDL Goal <100; Laboratory Microalbuminuria [address] [place] [address] Social History Tobacco Use Types Packs/Day Years Used Date Smoking Tobacco: Former Cigarettes Quit : 05/14/1988 Alcohol Use Standard Drinks/Week Comments No 0 (1 standard drink = 0.6 oz pure alcoho l) Sex Assigned at Date Recorded Female 05/22/2021 3:03 PM CDT documented as of this encounter Plan of Treatment Not on filedocumented as of this encounter Procedures Procedure Name Priority Date/Time Associated Comments Diagnosis HCL LIPID PANEL, Routine 11/06/2009 8:28 AM Type 2 Diabetes, R esults for this REFLEX TO DIRECT LDL CDT HbA1c Goal < 7% (H) procedure are in Hyperlipidemia LDL the resul ts Goal <100 section. [facility] COMPREHENSIVE Routine 11/06/2009 8:28 AM Type 2 Diabetes, Results for this METABOLIC PANEL CDT HbA1c Goal < 7% (H) procedure are in Hyperlipidemia LDL the resul ts Goal <100 section. [facility] GLYCATED Routine 11/06/2009 8:28 AM Type 2 Diabetes, Resul ts for this HEMOGLOBIN CDT HbA1c Goal < 7% (H) procedur e are in the results section. [facility] ALBUMIN URINE (INC Routine 11/06/2009 8:28 AM Type 2 Diabe farhat, Results for this CREAT) CDT HbA1c Goal < 7% (H) procedure are in Microalbuminuria the results section. documented in this encounter Results (ABNORMAL) HEMOGLOBIN A1C (11/06/2009 8:28 AM CDT) athologist Signature Hemoglobin A1C 6.2 (H) 4.3 - 6.0 [place] [facility] Specimen Anatomical Collection Method Collection Time Receive d Time (Source) Location / / Volume Laterality 11/06/2009 8:28 AM 201 0 8:29 CDT AM CDT Tiffany Leonard MD LABORATORY Performing Organization Address City/State/ZIP Code Phon e Number [facility] [address] [address] [address] [facility] A.M.A. COMPREHENSIVE MET.PANEL (11/06/2009 8:28 AM CDT) athologist Signature Sodium 142 133 - 144 [place] [facility] mmol/L [facility] Potassium 4.0 3.4 - 5.3 [place] [facility] mmol/L [facility] Chloride 102 94 - 109 [place] [facility] mmol/L [facility] Carbon Dioxide 30 20 - 32 [place] [facility] mmol/L [facility] Anion Gap 9 6 - 17 [place] [facility] mmol/L [facility] Glucose 94 60 - 99 [place] [facility] mg/dL [facility] Urea Nitrogen 14 7 - 30 [place] [facility] mg/dL [facility] Creatinine 0.70 0.52 - [place] [facility] 1.04 mg/dL CLINIC LAB Comment: New IDMS-traceable calibration beginning 07/01/07 GFR Estimate 84 >60 mL/min/1.7m2 [facility] GFR Estimate If Black >90 >60 mL/min/1.7m2 [facility] Calcium 9.2 8.5 - 10.4 mg/dL [facility] Bilirubin Total 0.6 0.2 - 1.3 mg/dL [facility] Albumin 3.9 3.3 - 4.9 g/dL [place] [facility] Comment: Reference range changed on 11/01. Protein Total 7.2 6.8 - 8.8 g/dL [facility] Comment: As of 07, reference range reflects plasma specimen type. Alkaline Phosphatase 63 40 - 150 U/L [facility] LAB ALT 18 0 - 50 U/L [facility] IC LAB AST 26 0 - 45 U/L [facility] LAB Specimen Anatomical Collection Method Collection Time Receive d Time (Source) Location / / Volume Laterality 11/06/2009 8:28 AM 0 8:29 CDT AM CDT Tiffany Leonard MD LABORATORY Performing Organization Address City/[facility]/ZIP Code Phon e Number [facility] [address] [place] [address] [facility] MICROALBUMIN (INC URINE CREAT) (11/06/2009 8:28 AM CDT) athologist Signature Creatinine 41 mg/dL [facility] Urine CAMPUS LABS Albumin Urine 8 mg/L [facility] mg/L [facility] Albumin Urine 19.51 0 - 20 [facility] mg/g Cr mg/g Cr CAMPUS LABS Specimen Anatomical Collection Method Collection Time Receive d Time (Source) Location / / Volume Laterality 11/06/2009 8:28 AM 0 8:29 CDT AM CDT Tiffany Leonard MD LABORATORY Performing Organization Address City/State/ZIP Code Phon e Number [address] [address] [facility] (ABNORMAL) LIPID PANEL, REFLEX TO DIRECT LDL (11/06/2009 8:28 AM CDT) P athologist Signature Cholesterol 164 0 - 200 [facility] mg/dL CLINIC LAB Comment: LDL Cholesterol is the primary guide to therapy. The NCEP recommends further evaluation of: patients with cholesterol <200 mg/dL if additional risk factors are present, cholesterol >240 mg/dL, triglycerides >150 mg/dL, or HDL <40 mg/dL. Triglycerides 273 (H) 0 - 150 mg/dL [facility] HDL Cholesterol 28 (L) 50 - 110 mg/dL [facility] LDL Cholesterol Calculated 81 0 - 129 mg/dL [facility] Comment: LDL Cholesterol is the primary guide to therapy: LDL-cholesterol goal in high risk patients is <100 mg/dL and in very high risk patients is <70 mg/dL. VLDL-Cholesterol 55 (H) 0 - 30 mg/dL [facility] Cholesterol/HDL Ratio 5.8 (H) 0.0 - 5.0 [facility] Specimen Anatomical Collection Method Collection Time Receive d Time (Source) Location / / Volume Laterality 11/06/2009 8:28 AM 0 8:29 CDT AM CDT Tiffany Leonard MD LABORATORY Performing Organization Address City/State/ZIP Code Phon e Number [address] [address] [facility] documented in this encounter Visit Diagnoses Diagnosis Type 2 diabetes, HbA1c goal < 7% (H) Type II or unspecified type diabetes aubrey litus without mention of complication, not stated as uncontrolled Hyperlipidemia LDL goal <100 Other and unspecified hyperlipidemia Microalbuminuria Proteinuria documented in this encounter Care Teams Truck Body Builder Relationship Specialty Start Date End Date Tiffany Leonard MD PCP - General 04/16/01 documented as of this encounter
--- OUTSIDE RECORDS SUMMARY | 2021-12-25 14:09 | XMS_ITS | Encounter Summary ---
:1945 Author Organization [facility] Address [address] [place] [address]. [place] [address] Care Team Providers Name Role Phone Tiffany Leonard MD Primary Care Provider [phone] Reason for Visit Reason Onset Date Comments Refill Request 11/27/2010 fosamax Encounter Details Date Type Department Care Team Description 11/27/2010 MyC Refill [facility] Tiffany Leonardill [facility] Tammy Marinelli MD (fosamax) [address] [address] [address] [place] [address] [phone] Social History Tobacco Use Types Packs/Day Years Used Date Smoking Tobacco: Former Cigarettes Quit : 05/14/1988 Alcohol Use Standard Drinks/Week Comments No 0 (1 standard drink = 0.6 oz pure alcoho l) Sex Assigned at Date Recorded Female 05/22/2021 3:03 PM CDT documented as of this encounter Miscellaneous Notes Telephone Encounter - Rakel Varghese - 11/27/2010 1:42 PM CDT Faxed current rx to mail order pharmacy per pt request. Ok per RN protocol. Rakel Varghese RN Telephone Encounter - Rakel Varghese - 11/27/2010 1:40 PM CDT Message from SpazioDati: Original authorizing provider: Tiffany Leonard MD, MD Nunez Melina Maxwellemeka would like a refill of the following medications: ALENdronate (FOSAMAX) 70 MG tablet [Tiffany Leonard MD, ] Preferred pharmacy: [facility] [place] [facility] Comment: Could you please fax the above RX to [facility]. I was going to fill it locally but it is now available through the pharmacy like my other prescriptions. They prefer it be sent via [facility]. Thank you. documented in this encounter Plan of Treatment Not on filedocumented as of this encounter Visit Diagnoses Diagnosis Osteoporosis, unspecified - Primary documented in this encounter Care Teams Nematologist Relationship Specialty Start Date End Date Tiffany Leonard MD PCP - General 04/16/01 05/23/21 documented as of this encounter
--- OUTSIDE RECORDS SUMMARY | 2021-12-25 14:09 | XMS_ITS | Encounter Summary ---
:1945 Author Organization [facility] Address [address] [place] [address]. [place] [address] Care Team Providers Name Role Phone Tiffany Leonard MD Primary Care Provider [phone] Reason for Visit (Routine) - Closed Specialty Diagnoses / Procedures Referred By Contact Refer red To Contact Radiology Diagnoses MRI BRAIN W/O CONTRAST Procedure Notes: Cariovascular disease,syncope and collapse,Hx of ASCVDl Syncope on 02/28/2011; small vessel changes on CT. MRI done 8 years ago in [place]; p* Rh Mri Procedures RADIOLOGY [address] [place], [place] [address] Phone: Fax: Referral ID Status Reason Start Date Expiration Date Visits Requ ested Visits Authorized [id number] Closed 03/11/2011 03/10/2012 1 1 Encounter Details Date Type Department Care Team Description 03/12/2011 Hospital Encounter [facility] Tiffany Leonard ASC VD [facility] MD Isis (arteriosclerotic [address] disease) [place] [id number] Social History Tobacco Use Types Packs/Day Years [...] 0 07/31 1200 MG OR HOURS NEEDED [id number]: Bronchitis acute ACCU-CHEK STEPHEN use as directed [...] Take 1 tablet by 180 tablet 3 10/0107/14/2011 tabletIndications: mouth 2 times Unspecified daily. cardiovascular disease Cholecalciferol 2000 UNIT Take 1 tablet by 0 07/14/2011 tablet mouth daily. gabapentin (NEURONTIN) Take 3 tablets by 270 tablet 3 201007/14/2011 600 MG tabletIndications: mouth. 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 Gastritis MetFORmin (GLUCOPHAGE-XR) Take 2 tablets by 180 tablet 0 07/14/2011 500 MG 24 hr mouth. Two DAILY tabletIndications: Type 2 WITH MEAL diabetes, HbA1c goal < 7% (H) pravastatin (PRAVACHOL) Take 1 tablet by 90 tablet 3 201004/07/2011 20 MG tabletIndications: mouth daily. at Hyperlipidemia LDL goal bedtime. <100 documented as of this encounter Miscellaneous Notes Initial Assessments - Abstract, Provider - 07/18/2011 6:25 PM CDT documented in this encounter Plan of Treatment Not on filedocumented as of this encounter Procedures Procedure Name Priority Date/Time Associated Diagnosis Comme nts MR BRAIN W/O Routine 03/12/2011 9:29 AM ASCVD (arterioscleroti c Results for this CONTRAST HEAVY LIFT RIGGER cardiovascular disease) proc edure are in the results section. documented in this encounter Results MRI Brain w/o contrast (03/12/2011 9:29 AM HEAVY LIFT RIGGER) Anatomical Region Laterality Modality Head, SUBRAD MR NEURO, UMP MR NEURO Magn etic Resonance Specimen (Source) Anatomical Collection Method Collection Time Re ceived Time Location / / Volume Laterality 03/12/2011 9:29 AM HEAVY LIFT RIGGER Impressions 03/21/2011 10:21 AM HEAVY LIFT RIGGER Addendum Begins Mayra Quinn The original report on this patient was dictated by Dr. Chandler. When compared to the newly available old brai n MRI from [facility] from 02/20/2003, there has been no identifiab le change in the white matter findings. The brain MRI is essentially s table from the comparison study. Dr. Santos ( Date of Addendum: 03/21/2011. ) Addendum Ends MRI BRAIN WITHOUT CONTRAST ??Mar 12 2 9:29:00 AM HISTORY: Syncope and collapse on 011. Right forehead trauma. TECHNIQUE: Multiplanar, multisequence MR I of the brain without gadolinium IV contrast material. COMPARISON: CT head 03/05/2011. FINDINGS: ?? There is mild T2 hyperinten sity in the periventricular white matter adjacent to the frontal hor n and anterior body of the left lateral ventricle, unchanged since the previous CT scan. Otherwise, the brain parenchyma, ventric les and subarachnoid spaces appear normal. ??There is no evidence of hemorrhage, mass, acute infarct, or anomaly. The facial structures appear normal. ??T he arteries at the base of the brain and the dural venous sinuses appea r patent. 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 Otherwise normal MRI of the brain. Tiffany Leonard MD IMG MRI ORDERABLES documented in this encounter Visit Diagnoses Diagnosis ASCVD (arteriosclerotic cardiovascular d isease) Unspecified cardiovascular disease documented in this encounter Care Teams Telesales Manager Relationship Specialty Start Date End Date Tiffany Leonard MD PCP - General 04/16/01 05/23/21 documented as of this encounter
--- OUTSIDE RECORDS SUMMARY | 2021-12-25 14:09 | XMS_ITS | Encounter Summary ---
:1945 Author Organization [facility] Address [address] [place] [address] Care Team Providers Name Role Phone Tiffany Leonard MD Primary Care Provider [phone] Encounter Details Date Type Department Care Team Description 07/21/[address] [facility] Tiffany Leonard Type 2 di abetes, HbA1C goal < 7% (H); Clinic Cindy Marinelli MD Hyperlipidemia LDL goal <100 [id number] [address] [address] [address] [facility] [place] [id number] Social History Tobacco Use Types Packs/Day Years [...] hyperlipidemia documented in this encounter Care Teams Pattern Keeper Relationship Specialty Start Date End Date Tiffany Leonard MD PCP - General 04/16/01 05/23/21 documented as of this encounter
--- OUTSIDE RECORDS SUMMARY | 2021-12-25 14:09 | XMS_ITS | Encounter Summary ---
:1945 Author Organization [facility] Address [address] [place] [address]. [place] [address] Care Team Providers Name Role Phone Tiffany Leonard MD Primary Care Provider [phone] Encounter Details Date Type Department Care Team Description 08/28/2010 Abstract [facility] Tiffany Leonard DIAGNOSIS NOT YET Clinic Darrian Marinelli MD DEFINED (Primary Dx) [address] [place] [address] [place] [address] [place], [place] [phone] (Wo rk) [address] [phone] Social History Tobacco Use Types Packs/Day Years [...] Name Priority Date/Time Associated Diagnosis Comme nts DIABETIC (DILATED) EYE EXAM Routine 08/19/2010 DIAGNOSIS NOT YET DEFINED documented in this encounter Results DIABETIC (DILATED) EYE EXAM (08/19/2010) Narrative This result has an attachment that is no t available. Tiffany Leonard MD PROCEDURES documented in this encounter Visit Diagnoses Diagnosis DIAGNOSIS NOT YET DEFINED - Primary documented in this encounter Care Teams Produce Specialist Relationship Specialty Start Date End Date Tiffany Leonard MD PCP - General 04/16/0105/23/22 documented as of this encounter
--- OUTSIDE RECORDS SUMMARY | 2021-12-25 14:09 | XMS_ITS | Encounter Summary ---
:1945 Author Organization [facility] Address [address] [place] [address]. [place] [address] Care Team Providers Name Role Phone Tiffany Leonard MD Primary Care Provider [phone] Reason for Visit Reason Onset Date Comments Prior Authorization 01/21/2010 Prevacid Encounter Details Date Type Department Care Team Description 01/21/2010 Telephone [facility] Tiffany Leonard Prior [facility] Tammy Marinelli MD (Prevacid) [address] [address] [address] [place] [address] [phone] Social History Tobacco Use Types Packs/Day Years Used Date Smoking Tobacco: Former Cigarettes Quit : 05/14/1988 Alcohol Use Standard Drinks/Week Comments No 0 (1 standard drink = 0.6 oz pure alcoho l) Sex Assigned at Date Recorded Female 05/22/2021 3:03 PM CDT documented as of this encounter Miscellaneous Notes Telephone Encounter - Lissa Lara - 01/21/2010 1:47 PM CST Called to check on the status of this medication (Prevacid) and they said it was approved on 01/14/2010. It is approved indefinitely for the pt. Sent to filled out form to abstraction for future reference if needed. Lissa Lara MA NCE WHEEL HAND FILER documented in this encounter Plan of Treatment Not on filedocumented as of this encounter Visit Diagnoses Not on filedocumented in this encounter Care Teams Mud Cleaner Operator Relationship Specialty Start Date End Date Tiffany Leonard MD PCP - General 04/16/01 05/23/21 documented as of this encounter
--- OUTSIDE RECORDS SUMMARY | 2021-12-25 14:09 | XMS_ITS | Encounter Summary ---
:1945 Author Organization [facility] Address [address] [place] [address]. [place] [address] Care Team Providers Name Role Phone Tiffany Leonard MD Primary Care Provider [phone] Reason for Visit Reason Onset Date Comments Patient/info Update 03/05/2011 Encounter Details Date Type Department Care Team Description 03/05/2011 Telephone [facility] Tiffany Leonard P atient/info Update Clinic Tammy BARRIENTOS [address] [address] [address] [place] [address] [phone] Social History Tobacco Use Types Packs/Day Years Used Date Smoking Tobacco: Former Cigarettes Quit : 05/14/1988 Alcohol Use Standard Drinks/Week Comments No 0 (1 standard drink = 0.6 oz pure alcoho l) Sex Assigned at Date Recorded Female 05/22/2021 3:03 PM CDT documented as of this encounter Miscellaneous Notes Telephone Encounter - Tash Smith - 03/05/2011 1:33 PM CST The pt called and said that she hit her head on her vanity last and now today she is noticing blurry vision. I advised that she have her take to the ER for further evaluation. The pt is comfortable with this plan of care.Tash Smith RN. RTRAIN DESIGN ENGINEER documented in this encounter Plan of Treatment Not on filedocumented as of this encounter Visit Diagnoses Not on filedocumented in this encounter Care Teams First Aid Director Relationship Specialty Start Date End Date Tiffany Leonard MD PCP - General 04/16/01 05/23/21 documented as of this encounter
--- OUTSIDE RECORDS SUMMARY | 2021-12-25 14:09 | XMS_ITS | Encounter Summary ---
:1945 Author Organization [facility] Address [address] [place] [address] Care Team Providers Name Role Phone Tiffany Leonard MD Primary Care Provider [phone] Reason for Visit Reason Onset Date Comments Diabetes Education 10/30/2009 Encounter Details Date Type Department Care Team Description 10/30/2009 Telephone [facility] Shauna Lopes Diabetes Education [place] [address] (Wo rk) Social History Tobacco Use Types Packs/Day Years Used Date Smoking Tobacco: Former Cigarettes Quit : 05/14/1988 Alcohol Use Standard Drinks/Week Comments No 0 (1 standard drink = 0.6 oz pure alcoho l) Sex Assigned at Date Recorded Female 05/22/2021 3:03 PM CDT documented as of this encounter Miscellaneous Notes Telephone Encounter - Shauna Lopes - 10/30/2009 4:19 PM CDT Dear Mayra how are you doing since you attended class 1 and class2? Any questions that have come up over the summer regarding your diabetes? You have 1 more class to attend so I am inserting the newest schedule for you. Would love to hear from you so when you get a chance can you send me a note. Shauna documented in this encounter Plan of Treatment Not on filedocumented as of this encounter Visit Diagnoses Not on filedocumented in this encounter Care Teams Customs Compliance Specialist Relationship Specialty Start Date End Date Tiffany Leonard MD PCP - General 04/16/01 05/23/21 documented as of this encounter
--- OUTSIDE RECORDS SUMMARY | 2021-12-25 14:09 | XMS_ITS | Encounter Summary ---
:1945 Author Organization [facility] Address [address] [place] [address]. [place] [address] Care Team Providers Name Role Phone Tiffany Leonard MD Primary Care Provider [phone] Reason for Referral Referral not Required - Closed Specialty Diagnoses / Procedures Referred By Contact Refer red To Contact Diagnoses Internal hemorrhoids Colon polyp, hyperplastic Tiffany Leonard MD COLON & RECTAL SURGERY [id number] [facility] [facility] [id number] [place] [id number] Phone: Fax: Referral ID Status Reason Start Date Expiration Date Visits Requ ested Visits Authorized [id number] Closed 10/22/2010 04/20/2011 1 1 Reason for Visit Reason Comments Physical Pre Visit Planning - 2 Attempts call placed 10/16/10 Medicare Visit Mammo's have been done at [facility] in the past [facility]. Encounter Details Date Type Department Care Team Description 10/22/2010 [facility] at a health care facility; Clinic Tammy Marinelli MD Type 2 diabetes, HbA1C goal < 7% (H); [id number] [id number] [address] Hyperlipidemia LDL goal <100; [address] [place], [place] IDIO PERIPH NEURPTHY NOS; [place] [id number] Unspecified cardiovascular disease; [id number] Colon polyp, hyperplastic; Internal hemorrhoids; Unspecifi ed osteoporosis; Screening mammo gram Social History Tobacco Use Types Packs/Day Years Used Date Smoking Tobacco: Former Cigarettes Quit : 05/14/1988 Alcohol Use Standard Drinks/Week Comments No 0 (1 standard drink = 0.6 oz pure alcoho l) Sex Assigned at Date Recorded Female 05/22/2021 3:03 PM CDT documented as of this encounter Last Filed Vital Signs Vital Sign Reading Time Taken Comments Blood Pressure 118/72 10/22/2010 10:10 AM CDT Pulse 62 10/22/2010 10:10 AM CDT Temperature - - Respiratory Rate 15 10/22/2010 10:10 AM CDT Oxygen Saturation - - Inhaled Oxygen Concentration - - Weight 72 kg (158 lb 11.2 oz) 10/22/2010 10:10 AM CDT Height 165.1 cm (5' 5) 10/22/2010 10:10 AM CDT Body Mass Index 26.41 10/22/2010 10:10 AM CDT documented in this encounter Patient Instructions Patient InstructionsShante Osorio - 10/17/2010 10:01 AM CDT PREVENTIVE HEALTH RECOMMENDATIONS: Unless you've had an abnormal Pap test in the past 10 years, you no longer need a yearly Pap test. Be sure to have a Pap test if you have vaginal symptoms, such as bleeding or discharge??. Have a mammogram every 1 to 2 years. Have a colonoscopy every 10 years, or have a yearly FIT test (stool test). These exams will check for colon cancer. Have a cholesterol test every 5 years. Have a diabetes test (fasting glucose) every three years. If you are at risk for diabetes, you should have this test more often. Vaccines: Get a flu shot each year. Get a tetanus shot every 10 years. Get a one-time shot to prevent pneumonia (Pneumovax). Talk to your doctor about a shingles vaccine. Eat at least 5 servings of fruits and vegetables daily. Eat whole-grain bread, whole-wheat pasta and brown rice instead of white grains and rice. For bone health: Eat calcium-rich foods or take calcium pills (500 to 600 mg) twice a day with food.Also take vitamin D (1000 IUs) each day. At age 65, have a bone density scan (DEXA) to check for osteoporosis (brittle bone disease). Exercise for at least 150 minutes a week (an average of 30 minutes a day, 5 days of the week). This will help you control your weight and prevent disease. Limit alcohol to one drink per day. No smoking. Wear sunscreen to prevent skin cancer. See your dentist twice a year for an exam and cleaning. See your eye doctor every 1 to 2 years. documented in this encounter Progress Notes Tiffany Leonard MD - 10/17/2010 10:01 AM CDT Chief Complaint Patient presents with ??? Physical ??? Pre Visit Planning - 2 Attempts call placed 10/16/10 ??? Welcome to Medicare Physical Exam Mammo's have been done at [facility] in the past but will be going to [facility]. CC: Mayra Quinn is an 65 year old woman who presents for preventive health visit. Besides routine health maintenance, she is also here for a periodic exam for DM, Lipids. BP 118/72 10/22/2010 GLC 92 05/30/2010 A1C 5.8 05/30/2010- well controlled on Metformin LDL 115 05/30/2010- on Pravachol but not currently to goal MICROL 46 05/30/2010 MICROALBUMIN 29.11 05/30/2010 Healthy Habits: Do you get at least three servings of calcium containing foods daily (dairy, green leafy vegetables,etc.)? yes Outside of work or daily activities, how many days per week do you exercise for 30 minutes or longer? 3 Dietary Guidelines for Americans, 2010 USDA's MyPlate Estimated Body mass index is 27.31 kg/(m^2) as calculated from the following: Height as of 05/30/10: 5' 4(1.626 m). Weight as of 05/30/10: 159 lb 1.6 oz(72.167 kg). Have you had an eye exam in the past two years? yes Do you see a dentist twice per year? yes Patient is also in need of diabetic follow up. Diabetes concerns: no Patient glucose self monitoring: three time a week. Blood glucose averages: around 100 in the am. Symptoms of low blood sugar/hypoglycemia (nausea, shakey, sweaty, dizzy...)? no Problems taking medications regularly? no Side effects? no BP Readings from Last 3 Encounters: 10/22/10 118/72 05/30/10 120/62 12/31/09 128/70 A1C 5.8 05/30/2010 A1C 6.2 11/06/2009 A1C 7.9 06/05/2009 Recent Labs Lab Test 05/30/10 0803 11/06/09 0828 ??? CHOL 191 164 ??? HDL 34* 28* ??? LDL 115 81 ??? TRIG 210* 273* ??? CHOLHDLRATIO 5.6* 5.8* Wt Readings from Last 3 Encounters: 10/22/10 158 lb 11.2 oz (71.986 kg) 05/30/10 159 lb 1.6 oz (72.167 kg) 12/31/09 164 lb (74.39 kg) Staff Signature Chitra Osorio LPN PHQ-2 Over the last two weeks- Have you been bothered by little interest or pleasure in doing things? No Over the last two weeks- Have you been feeling down, depressed, or hopeless? No Abuse: Current or Past(Physical, Sexual or Emotional)- No Do you feel safe in your environment - Yes History Substance Use Topics ??? Smoking status: Former Smoker Quit date: 05/14/1988 ??? Smokeless tobacco: Not on file ??? Alcohol Use: No The patient does not drink >3 drinks per day nor >7 drinks per week. Reviewed orders with patient. Reviewed health maintenance and updated orders accordingly - Yes Staff Signature Chitra Osorio LPN History of abnormal Pap smear: Yes but unsure of diagnosis and has had a hysterectomy. All Histories reviewed and updated in [facility]. Chitra Osorio LPN ROS: C: NEGATIVE for fever, chills, change in weight I: NEGATIVE for worrisome rashes, moles or lesions E: NEGATIVE for vision changes or irritation ENT: NEGATIVE for ear, mouth and throat problems R: NEGATIVE for significant cough or SOB B: NEGATIVE for masses, tenderness or discharge; right sided mastectomy CV: NEGATIVE for chest pain, palpitations or peripheral edema GI: NEGATIVE for nausea, abdominal pain, heartburn, or change in bowel habits Not current but notes occasional flares of hemorrhoids; interested in considering banding procedure if appropriate; colon polyps noted on colonoscopy at [facility], follow up in next few years; last colonoscopy on file is 2002 but pt reports one done recently with follow up in 2-3 years menopausal female: hysterectomy- occasional leakage M: NEGATIVE for significant arthralgias or myalgia N: NEGATIVE for weakness, dizziness or paresthesias; 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 ENDOCRINE: Diabetes parameters reviewed; LDL not to goal; Diabetes well controlled in 04/2010, due for labs; osteoporosis- Fosamax and calcium and Vit D3 H: NEGATIVE for bleeding problems P: NEGATIVE for changes in mood or affect OBJECTIVE: BP 118/72 Pulse 62 Resp 15 Ht 5' 5 (1.651 m) Wt 158 lb 11.2 oz (71.986 kg) BMI 26.41 kg/m2 GENERAL APPEARANCE: healthy, alert and no distress EYES: Eyes grossly normal to inspection, PERRL and conjunctivae and sclerae normal HENT: ear canals and TM's normal, nose and mouth without ulcers or lesions, oropharynx clear and oral mucous membranes moist NECK: no adenopathy, no asymmetry, masses, or scars and thyroid normal to palpation RESP: lungs clear to auscultation - no rales, rhonchi or wheezes BREAST: right sided mastectomy without reconstruction; scar well healed. Left normal without masses,tenderness or nipple discharge and no palpable axillary masses or adenopathy CV: regular rate and rhythm, normal S1 S2, no S3 or S4, no murmur, click or rub, no peripheral edemaand peripheral pulses strong ABDOMEN: soft, nontender, no hepatosplenomegaly, no masses and bowel sounds normal (female): hysterectomy, vaginal mucosal atrophy without masses or abnormal discharge MS: no musculoskeletal defects are noted and gait is age appropriate without ataxia SKIN: no suspicious lesions or rashes NEURO: Normal strength and tone, mentation intact, speech normal and tingling noted per pt. PSYCH: mentation appears normal and affect normal/bright COUNSELING: regular exercise healthy diet/nutrition Osteoporosis Prevention/Bone Health Obesity Action Plan: keep active and healthy diet; protion control ATP III Guidelines FRAX Risk Assessment ICSI Preventive Guidelines ASSESSMENT/PLAN: V70.0 Routine general medical examination at a health care facility Comment: HEALTH CARE MAINTENANCE reviewed; health risk assessment completed Plan: Lipid panel reflex to direct LDL, Vitamin D Deficiency, TSH with free T4 reflex, Hemoglobin, Comprehensive metabolic panel 250.00FV Type 2 diabetes, HbA1C goal < 7% Comment: fasting for labs today BP Readings from Last 1 Encounters: 10/22/10 118/72 GLC 94 10/22/2010 A1C 5.9 10/22/2010 at goal LDL 115 10/22/2010 recommend LDL<100 consider statin dose increase ( Pravachol 20 mg to 40 mg per day) MICROL 46 05/30/2010 MICROALBUMIN 29.11 05/30/2010 Plan: Lipid panel reflex to direct LDL, Comprehensive metabolic panel, Hemoglobin A1c 272.4CL Hyperlipidemia LDL goal <100 Comment: LDL Previously not to goal, discussed option of increased Pravachol dose if not at goal of LDL<100; currently at Pravachol 20 mg LDL 115 05/30/2010 Plan: Lipid panel reflex to direct LDL, Comprehensive metabolic panel 356.9 IDIO PERIPH NEURPTHY NOS Comment: Chemotherapy related ; breast cancer 1997 and 2001- more so after second round Feels Gabapentin is helpful; desires to continue med. Plan: gabapentin (NEURONTIN) 600 MG tablet 429.2 Unspecified cardiovascular disease Comment: stable on low dose beta garret ; well tolerated. Plan: atenolol (TENORMIN) 25 MG tablet 211.3CQ Colon polyp, hyperplastic Comment: last on file 2002 but has had done at [facility] in past fesw years; anticipate follow up in 2011or 2012 Plan: COLORECTAL SURGERY REFERRAL 455.0A Internal hemorrhoids Comment: periodic flares, interested in discussing future banding procedure; not currently active. Plan: COLORECTAL SURGERY REFERRAL 733.00 Unspecified osteoporosis Comment: risk assessment Plan: ALENdronate (FOSAMAX) 70 MG tablet Continue daily calcium (1200-1500mg), vitamin D (1000IU), and regular exercise. V76.12B Screening mammogram Comment: right mastecotmy Plan: Mammo Screening digital (bilat) Tiffany Leonard MD Internal Medicine electronically signed 15 minutes in addition to HEALTH CARE MAINTENANCE are spent with patient, over 50% of that time spent providing counselling, discussing and reviewing medical conditions/concerns, meds and potential side effects. documented in this encounter Nursing Notes 10/22/2010 10:00 AM CDT >> SHANTE Oliver Oct 22, 2010 10:16 AM Patient presents with: Physical Pre Visit Planning - 2 Attempts - call placed 10/16/10 Welcome to Medicare Physical Exam - Mammo's have been done at [facility] in the past but will be going to [facility]. Initial BP 118/72 Pulse 62 Resp 15 Ht 5' 5 (1.651 m) Wt 158 lb 11.2 oz (71.986 kg) BMI 26.41 kg/m2 Estimated Body mass index is 26.41 kg/(m^2) as calculated from the following: Height as of this encounter: 5' 5(1.651 m). Weight as of this encounter: 158 lb 11.2 oz(71.986 kg). BP completed using cuff size. large. Chitra Osorio LPN documented in this encounter Plan of Treatment Scheduled Referrals Name Type Priority Associated Diagnoses Order S chedule COLORECTAL SURGERY Referral Routine Internal hemo rrhoids Ordered: 10/22/2010 REFERRAL Colon polyp, hyperplastic documented as of this encounter Procedures Procedure Name Priority Date/Time Associated Comments Diagnosis VITAMIN D DEFICIENCY Routine 10/22/2010 10:57 Routine general Results for this SCREENING AM CDT medical examination procedur e are in at a health care the results facility section. TSH WITH FREE T4 Routine 10/22/2010 10:57 Routine general Resu lts for this REFLEX AM CDT medical examination procedur e are in at a health care the results facility section. LIPID REFLEX TO DIRECT Routine 10/22/2010 10:57 Routine genera l Results for this LDL PANEL AM CDT medical examination procedur e are in at a health care the results facility section. Type 2 diabetes, HbA1C goal < 7% (H) Hyperlipidemia LDL goal <100 HEMOGLOBIN A1C Routine 10/22/2010 10:57 Type 2 diabetes, Resul ts for this AM CDT HbA1C goal < 7% (H) procedur e are in the results section. HEMOGLOBIN Routine 10/22/2010 10:57 Routine general Results for this AM CDT medical examination procedur e are in at a health care the results facility section. COMPREHENSIVE Routine 10/22/2010 10:57 Routine general Results for this METABOLIC PANEL AM CDT medical examination proce phillip are in at a health care the results facility section. Type 2 diabetes, HbA1C goal < 7% (H) Hyperlipidemia LDL goal <100 documented in this encounter Results Hemoglobin A1c (10/22/2010 10:57 AM CDT) athologist Signature Hemoglobin A1C 5.9 4.3 - 6.0 [place] % [facility] Specimen Anatomical Collection Method Collection Time Receive d Time (Source) Location / / Volume Laterality Blood specimen 10/22/2010 10:57 1 (specimen) AM CDT 10:58 AM CDT Tiffany Leonard MD LAB - BLOOD ORDERABLES Performing Organization Address City/State/ZIP Code Phon e Number [facility] [address] [place] [address] [facility] (ABNORMAL) Comprehensive metabolic panel (10/22/2010 10:57 AM CDT) P athologist Signature Sodium 145 (H) 133 - 144 [place] mmol/L [facility] Potassium 4.7 3.4 - 5.3 [place] mmol/L [facility] Chloride 104 94 - 109 [place] mmol/L [facility] Carbon Dioxide 30 20 - 32 [place] mmol/L [facility] Anion Gap 11 6 - 17 [place] mmol/L [facility] Glucose 94 60 - 99 [place] mg/dL [facility] Urea Nitrogen 14 7 - 30 [place] mg/dL [facility] Creatinine 0.69 0.52 - [place] 1.04 mg/dL [facility] GFR Estimate 85 >60 [place] mL/min/1.7 [facility] m2 LAB GFR Estimate If >90 >60 [place] Black mL/min/1.7 [facility] m2 LAB Calcium 9.7 8.5 - 10.4 [place] mg/dL [facility] Bilirubin Total 0.5 0.2 - 1.3 [place] mg/dL [facility] Albumin 4.3 3.3 - 4.9 [place] g/dL [facility] Comment: Reference range changed on 11/01. Protein Total 7.4 6.8 - 8.8 g/dL [facility] Comment: As of 07, reference range reflects plasma specimen type. Alkaline Phosphatase 60 40 - 150 U/L [facility] ALT 13 0 - 50 U/L [place] [facility] AST 21 0 - 45 U/L [place] [facility] Specimen Anatomical Collection Method Collection Time Receive d Time (Source) Location / / Volume Laterality Blood specimen 10/22/2010 10:57 1 (specimen) AM CDT 10:58 AM CDT Tiffany Leonard MD LAB - BLOOD ORDERABLES Performing Organization Address City/[facility]/ZIP Code Phon e Number [facility] [address] [place] [address] [facility] Hemoglobin (10/22/2010 10:57 AM CDT) P athologist Signature Hemoglobin 13.6 11.7 - 15.7 [place] g/dL [facility] Specimen Anatomical Collection Method Collection Time Receive d Time (Source) Location / / Volume Laterality Blood specimen 10/22/2010 10:57 1 (specimen) AM CDT 10:58 AM CDT Tiffany Leonard MD LAB - BLOOD ORDERABLES Performing Organization Address City/[facility]/ZIP Code Phon e Number [facility] [address] [place], [place] [address] [facility] TSH with free T4 reflex (10/22/2010 10:57 AM CDT) P athologist Signature TSH 1.03 0.4 - 5.0 [facility] mU/L CLINIC LAB Specimen Anatomical Collection Method Collection Time Receive d Time (Source) Location / / Volume Laterality Blood specimen 10/22/2010 10:57 1 (specimen) AM CDT 10:58 AM CDT Tiffany Leonard MD LAB - BLOOD ORDERABLES Performing Organization Address City/[facility]/ZIP Code Phon e Number [facility] [address] [place] [address] [facility] Vitamin D Deficiency (10/22/2010 10:57 AM CDT) Component Value Ref Test Analysis Performed At Patholo gist Range Method Time Signature 25 [place] Vit D2 <5 ug/L [facility] 25 [place] Vit D3 42 ug/L [facility] 25 [place] Vit D <47 30 - 75 [facility] total Season, race, dietary intake, and treatm ent affect the concentration of ug/L [place] [id number] D. Values may decrease during ye er months and increase [facility] during summer months. Values less than 30 ug/L may indicate Vitamin D deficiency. Specimen Anatomical Collection Method Collection Time Receive d Time (Source) Location / / Volume Laterality Blood specimen 10/22/2010 10:57 1 (specimen) AM CDT 10:58 AM CDT Tiffany Leonard MD LAB - BLOOD ORDERABLES Performing Organization Address City/State/ZIP Code Phon e Number [facility] [address] [place] [address] [facility]S (ABNORMAL) Lipid panel reflex to direct LDL (10/22/2010 10:57 AM CDT) P athologist Signature Cholesterol 191 0 - 200 [facility] mg/dL CLINIC LAB Comment: LDL Cholesterol is the primary guide to therapy. The NCEP recommends further evaluation of: patients with cholesterol greater than 200 mg/dL if additional risk facto rs are present, cholesterol greater than 240 mg/dL, triglycerides greater than 1 50 mg/dL, or HDL less than 40 mg/dL. Triglycerides 214 (H) 0 - 150 mg/dL [facility] HDL Cholesterol 33 (L) 50 - 110 mg/dL [facility] LDL Cholesterol Calculated 115 0 - 129 mg/dL [facility] Comment: LDL Cholesterol is the primary guide to therapy: LDL-cholesterol goal in high risk patients is <100 mg/dL and in very high risk patients is <70 mg/dL. VLDL-Cholesterol 43 (H) 0 - 30 mg/dL [place] E [facility] Cholesterol/HDL Ratio 5.7 (H) 0.0 - 5.0 [facility] Specimen Anatomical Collection Method Collection Time Receive d Time (Source) Location / / Volume Laterality Blood specimen 10/22/2010 10:57 1 (specimen) AM CDT 10:58 AM CDT Tiffany Leonard MD LAB - BLOOD ORDERABLES Performing Organization Address City/State/ZIP Code Phon e Number [address] [address] [facility] documented in this encounter Visit Diagnoses Diagnosis Routine general medical examination at a health care facility Type 2 diabetes, HbA1c goal < 7% (H) Type II or unspecified type diabetes aubrey litus without mention of complication, not stated as uncontrolled Hyperlipidemia LDL goal <100 Other and unspecified hyperlipidemia IDIO PERIPH NEURPTHY NOS Unspecified hereditary and idiopathic pe ripheral neuropathy Unspecified cardiovascular disease Colon polyp, hyperplastic Benign neoplasm of colon Internal hemorrhoids Internal hemorrhoids without mention of complication Osteoporosis, unspecified Screening mammogram Other screening mammogram documented in this encounter Care Teams Refrigerating Engineer Head Relationship Specialty Start Date End Date Tiffany Leonard MD PCP - General 04/16/01 05/23/21 documented as of this encounter
--- OUTSIDE RECORDS SUMMARY | 2021-12-25 14:09 | XMS_ITS | Encounter Summary ---
:1945 Author Organization [facility] Address [address] [place] [address] Care Team Providers Name Role Phone Tiffany Leonard MD Primary Care Provider [phone] Reason for Visit Reason Comments Fall Encounter Details Date Type Department Care Team Description 03/05/[address] [facility] Sharri Cunha Closed h ead injury; [facility] sienna Nino MD Transient diplopia; [address] [facility] Traumatic hematoma of eyelid ; [place], [place] White matter disease [id number] [address] [address] JANIA OLMSTEAD [id number] (Wo rk) Social History Tobacco Use Types Packs/Day Years Used Date Smoking Tobacco: Former Cigarettes Quit : 05/14/1988 Alcohol Use Standard Drinks/Week Comments No 0 (1 standard drink = 0.6 oz pure alcoho l) Sex Assigned at Date Recorded Female 05/22/2021 3:03 PM CDT documented as of this encounter Last Filed Vital Signs Vital Sign Reading Time Taken Comments Blood Pressure 155/80 03/05/2011 4:55 PM [employer] Pulse 54 03/05/2011 3:45 PM [employer] Temperature 36.6 ??C (97.9 ??F) 03/05/2011 2:15 PM [employer] Respiratory Rate 18 03/05/2011 3:47 PM [employer] Oxygen Saturation 100% 03/05/2011 3:47 PM [employer] Inhaled Oxygen Concentration - - Weight - - Height - - Body Mass Index - - documented in this encounter Discharge Instructions Discharge InstructionsSharri Cunha MD - 03/05/2011 4:41 PM [employer] Discuss further brain imaging (MRI) with your doctor to further evaluate the chronic appearing whitematter changes. Take aspiring daily. [employer] AttachmentsThe following attachments cannot be sent through Care Everywhere.HEAD INJURY, NO WAKE-UP (ADULT) (CHADIAN)documented in this encounter Medications at Time of [...] 0 07/31 1200 MG OR HOURS NEEDED [id number]: Bronchitis acute ACCU-CHEK STEPEHN use as directed 1 Bottle 0 08/08/2009 [...] bedtime. <100 documented as of this encounter ED Notes Radha Barrow RN - 03/05/2011 3:03 PM CST Pt ambulated in [place] with steady gait to have visual acuity done by ERT, awaiting CT. [employer] Radha Barrow RN - 03/05/2011 2:45 PM CST Blood sugar 103, notified, no distress. [employer] Sharri Cunha MD - 03/05/2011 2:28 PM CST History Chief Complaint: Double vision. HPI Mayra Quinn is a healthy, immunized 65 year old female with a history of osteoporosis and diabetes mellitus who presents to the Emergency Department with complaints of double vision. The patient reports that she suffered a syncopal episode last week while she was sick with gastroenteritis, at which time she sustained trauma to the right side of her face while she fell forward into the vanity in her bathroom. She states that she also sustained some mild trauma to her right foot at that time, but she notes that she did not sustain any other significant injuries. Her gastroenteritis symptoms have resolved. She reports that she had been feeling well following the incident despite the initial severe facial swelling and bruising with only mild intermittent headaches, until she began to experience some double vision in the right eye around 1230 hours this morning while she was driving. She notes that she did not have any medical evaluation following the incident, as she had been asymptomatic. The patient states that she has not experienced any subsequent back pain, neck pain, nausea, dizziness, lightheadedness, hearing loss, tinnitus, photophobia, confusion, or any weakness, or tingling in her extremities. However, she does note that she has a small amount of numbness in the right leg at this time. She also mentions that she had a very mild headache two days ago (which has since resolved).She states that the swelling and bruising over the right side of her face is much improved, and she reports that she has not had any marked facial pain since the time of the incident. The patient denies any recent illnesses, fevers, chills, cough, sore throat, rashes, nausea, vomiting, constipation, or diarrhea, and states that she has otherwise been healthy. She does not voice any additional concerns at this time. Allergies: Sulfa Drugs; hives. Latex; hives and [...] Constitutional: Negative for fever and chills. HENT: Positive for facial swelling (mild). Negative for hearing loss, sore throat, neck pain and tinnitus. Positive for trauma to the head. Eyes: Positive for visual disturbance (right double vision). Negative for photophobia. Respiratory: Negative for cough. Gastrointestinal: Negative for nausea, vomiting, diarrhea and constipation. Musculoskeletal: Negative for back pain. Positive for mild right facial pain. Positive for right foot pain. Positive for trauma to the rightfoot and face. Skin: Negative for rash. Positive for bruising over the right face. Neurological: Positive for numbness (right leg) and headaches. Negative for dizziness, weakness and light-headedness. Syncope: remote. Psychiatric/Behavioral: Negative for confusion. All other systems reviewed and are negative. Physical Exam First Vitals: BP: 153/73 mmHg Heart Rate: 58 Temp: 97.9 ??F (36.6 ??C) Resp: 18 SpO2: 98 % Visual Acuity: 25/20 Right. Physical Exam Constitutional: She is oriented to person, place, and time. Adult female. Ambulatory in the room. HENT: Mouth/Throat: Oropharynx is clear and moist. Infraorbital ecchymoses. No tenderness to palpation of the scap. Yellowish ecchymosis to the right forehead near the hairline. Ecchymosis in the right lower cheek area. No edema. No hemotympanum on the right. Eyes: Conjunctivae are normal. Pupils are equal, round, and reactive to light. Neck: Nontender in the midlne cervical bony area. Mild tenderness in the right perispinal musculature into the trapezius. Cardiovascular: Normal rate, regular rhythm, normal heart sounds and intact distal pulses. Exam reveals no gallop and no friction rub. No murmur heard. Pulmonary/Chest: Effort normal and breath sounds normal. No respiratory distress. She has no wheezes. She has no rales. She exhibits no tenderness. Musculoskeletal: Normal range of motion. She exhibits no edema and no tenderness. Ecchymosis to the right lateral foot. Neurological: She is alert and oriented to person, place, and time. No cranial nerve deficit. She exhibits normal muscle tone. No focal abnormalities appreciated. Answers all questions and follows all commands appropriately. Cranial nerves II-XII intact. Skin: Skin is warm and dry. No rash noted. She is not diaphoretic. No erythema. Ecchymosis to the right lateral foot. Psychiatric: She has a normal mood and affect. Imaging: CT Head (without contrast): Left frontal periventricular white matter low attenuation, probably old infarct or sequelae of small vessel ischemic disease. Otherwise normal unenhanced CT scan of the brain. Preliminary Radiology Interpretation. CT Temporal Orbital Sella (without contrast): Small hematoma right malar eminence tracking into the right lower eyelid. No evidence of facial bone fracture. Preliminary Radiology Interpretation. Laboratory: Glucose by Meter: 103 (high). Emergency Department Course Emergency Department Course: 1428 The patient's medical record was reviewed. The patient was seen and evaluated by myself, and the plan of care including laboratory and diagnostic studies was discussed with the patient. The patient understands and is agreeable to this plan. 1530 Recheck. The patient is comfortable and asymptomatic at this time. 1625 Recheck. The patient continues to do well here in the Emergency Department. I have reviewed with the patient the results of the above studies, and all of her questions have been answered. She understands and is agreeable to this plan of care. She will be discharged to home in stable condition with a care plan as detailed below. Impression & Plan Medical Decision Making: Mayra Quinn is a 65 year old female who is status post recent head trauma who presents to the Emergency Department today with a transient episode of diplopia. She also has mild headaches intermittently, but this has been absent today. She has not had any other neurological symptoms, and here in the Emergency Department she was neurologically intact. Head imaging was obtained, both of the brain and of the orbit to exclude any fractures or intracranial injuries. These studies did not show any signs of intracranial injuries or fracture, but the CT of the orbit did show a small hematoma as wellas a an incidental finding of while matter disease on the CT scan of the head. These findings seem chronic in nature and I do not feel that this is clinically relevant today. She has been reccommended to continue Aspirin use. She has also been told to follow up with her primary care provider for further imaging as needed on an outpatient basis, such as an MRI to further evaluate the white matter disease as seen on CT. She has verbalized understanding and agreement with this plan of care. She has been given return precautions for any new neurological symptoms, severe headaches, or any other visual disturbances. She has also been told to follow closed head injury guidelines, and she has been given discharge information regarding this. She will be discharged to home in stable condition in the care of her . Diagnosis: 1. Closed head injury. 2. Transient diplopia. 3. Right eyelid hematoma. 4. Chronic appearing white matter disease, incidentally noted. Disposition: The patient was discharged to home in stable condition and improved wtih instructions as noted above. With reasonable clinical confidence, I do not believe any emergency medical condition exists that requires further immediate medical attention, or that could be expected to place the patient's health in serious jeopardy. I Melanie Valiente am serving as a scribe on 03/05/2011 at 2:28 PM to personally document services performed by Dr. Cunha based on my observations and the provider's statements to me. Sharri Cunha MD 03/08/11 1030 [employer] Yazmin Reynoso RN - 03/05/2011 2:15 PM CST Fell last Thursday am. Pt reports syncope she has a black right eye. Now pt is reporting blurry vision. [employer] documented in this encounter Plan of Treatment Not on filedocumented as of this encounter Procedures Procedure Name Priority Date/Time Associated Diagnosis Comme nts CT TEMPORAL W/O STAT 03/05/2011 3:45 PM Result s for this CONTRAST [employer] procedure are i n the results section. CT HEAD W/O STAT 03/05/2011 3:44 PM Results f or this CONTRAST [employer] procedure are i n the results section. GLUCOSE BY METER Routine 03/05/2011 2:43 PM Resul ts for this [employer] procedure are i n the results section. documented in this encounter Results CT Temporal orbital sella w/o contrast (03/05/2011 3:45 PM [employer]) Anatomical Region Laterality Modality Head, SUBRAD CT NEURO, SUBRAD CT NEURO, UMP CT NEURO Computed Tomography Specimen (Source) Anatomical Collection Method Collection Time Re ceived Time Location / / Volume Laterality 03/05/2011 3:45 PM [employer] Impressions 03/05/2011 4:25 [address] CT SCAN OF THE FACE WITHOUT CONTRAST ??J an 2011 3:45 PM HISTORY: Trauma, diplopia. Patient hit r ight side of face and eye. TECHNIQUE: Noncontrast axial scans and c oronal reformations. COMPARISON: None. FINDINGS: There is no evidence of fractu re. There is mild mucosal thickening in the maxillary and ethmoid sinuses. Degenerative changes are present in the temporomandibular tino nts. Frontal sinuses are aplastic. There is slight subcutaneous s oft tissue swelling in the right lower eyelid and a small hematoma over the right malar eminence. IMPRESSION: Small hematoma right malar e minence tracking into the right lower eyelid. No evidence of facia l bone fracture. Sharri Cunha MD [facility] CT ORDERABLES Head CT w/o contrast (03/05/2011 3:44 PM TER[employer]) Anatomical Region Laterality Modality Head, SUBRAD CT NEURO, SUBRAD CT NEURO, UMP CT NEURO Computed Tomography Specimen (Source) Anatomical Collection Method Collection Time Re ceived Time Location / / Volume Laterality 03/05/2011 3:44 PM [employer] Impressions 03/05/2011 4:24 PM TER[employer] CT SCAN OF THE HEAD WITHOUT CONTRAST ??J an 2011 3:44:00 PM HISTORY: Trauma and headache. Patient fe ll and hit the right side of her face. TECHNIQUE: ??5 mm thick axial images of the head without IV contrast material. COMPARISON: None. FINDINGS: ??There is mild low attenuatio n in the periventricular white matter lateral to the frontal horn of th e left lateral ventricle, probably due to old infarct or sequelae of small vessel ischemic disease. Otherwise the brain parenchyma, ventricles and subarachnoid spaces appear normal. There is no eviden ce of intracranial hemorrhage, mass, acute infarct or anomaly. The visualized portions of the sinuses a nd mastoids appear normal. There is no evidence of trauma. IMPRESSION: ??Left frontal periventricul ar white matter low attenuation, probably old infarct or seq uelae of small vessel ischemic disease. Otherwise normal unenhanced CT scan of the brain. Sharri Cunha MD [facility] CT ORDERABLES (ABNORMAL) Glucose by meter (03/05/2011 2:43 PM [employer]) P athologist Signature Glucose 103 (H) 60 - 99 POINT OF CARE mg/dL TEST, GLUCOSE Comment: RN/Dr notified Specimen Anatomical Collection Method Collection Time Receive d Time (Source) Location / / Volume Laterality 03/05/2011 2:43 PM 2 3:55 [employer] PM [employer] Sharri Cunha MD [facility] POCT Performing Organization Address City/State/ZIP Code Phon e Number FV POINT OF CARE TEST, GLUCOSE POINT OF CARE TEST, GLUCOSE documented in this encounter Visit Diagnoses Diagnosis Closed head injury Head injury, unspecified Transient diplopia Diplopia Traumatic hematoma of eyelid Contusion of eyelids and periocular area White matter disease Other conditions of brain documented in this encounter Care Teams Calibration Tester Relationship Specialty Start Date End Date Tiffany Leonard MD PCP - General 04/16/01 05/23/21 documented as of this encounter
--- OUTSIDE RECORDS SUMMARY | 2021-12-25 14:09 | XMS_ITS | Encounter Summary ---
:1945 Author Organization [facility] Address [facility] [place] [address] Care Team Providers Name Role Phone Tiffany Leonard MD Primary Care Provider [phone] Encounter Details Date Type Department Care Team Description 12/24/2010 Orders Only [facility] Tiffany Leonard ERRONE[facility] Tammy Marinelli MD ENCOUNTER--DISREGARD [id number] (Primary Dx) [place], [place] [id number] [phone] Social History Tobacco Use Types Packs/Day Years [...] Primary documented in this encounter Care Teams Hot Top Liner Relationship Specialty Start Date End Date Tiffany Leonard MD PCP - General 04/16/01 05/23/21 documented as of this encounter
--- OUTSIDE RECORDS SUMMARY | 2021-12-25 14:09 | XMS_ITS | Encounter Summary ---
:1945 Author Organization [facility] Address [address] [place] [address] Care Team Providers Name Role Phone Tiffany Leonard MD Primary Care Provider [phone] Reason for Visit Reason Comments Pre Visit Planning - Done Diabetes Edema swelling in right ankle for the past month Encounter Details Date Type Department Care Team Description 12/31/[address] [facility] Tiffany Leonard Type 2 di abetes, HbA1C goal < 7% (H); Clinic Tammy Marinelli MD Hyperlipidemia LDL goal <100; [address] [address] [address] Gastritis; [place], [place] Vitamin D deficiencies; [place] [address] ASCVD; [id number] PERS HX OF BREAST MALIGNANCY Social History Tobacco Use Types Packs/Day Years Used Date Smoking Tobacco: Former Cigarettes Quit : 05/14/1988 Alcohol Use Standard Drinks/Week Comments No 0 (1 standard drink = 0.6 oz pure alcoho l) Sex Assigned at Date Recorded Female 05/22/2021 3:03 PM CDT documented as of this encounter Last Filed Vital Signs Vital Sign Reading Time Taken Comments Blood Pressure 128/70 12/31/2009 9:57 AM CDT Pulse 60 12/31/2009 9:57 AM CDT Temperature - - Respiratory Rate - - Oxygen Saturation - - Inhaled Oxygen Concentration - - Weight 74.4 kg (164 lb) 12/31/2009 9:57 AM CDT Height 162.6 cm (5' 4) 12/31/2009 9:57 AM CDT Body Mass Index 28.15 12/31/2009 9:57 AM CDT documented in this encounter Progress Notes HoracioTiffanyn - 12/27/2009 9:25 AM CDT Chief Complaint Patient presents with ??? Pre Visit Planning - Done ??? Diabetes ??? Edema swelling in right ankle for the past month SUBJECTIVE: Mayra Quinn presents today for follow up of DIABETES MELLITUS and swelling in her right ankle. Patient concerns: ankle swelling Patient glucose self monitorin times weekly. Blood glucose averages: morning 104 and slightly higher around 120-125 later in the day. Symptoms of low blood sugar (hypoglycemia)? no Problems taking medications regularly? no Side effects? no What are you doing for exercise outside of work or your daily activities? 2-3 Health maintenance updated? Yes PHQ-2 Over the last two weeks- Have you been bothered by little interest or pleasure in doing things? No Over the last two weeks- Have you been been feeling down, depressed, or hopeless? No BP: 128/82 Catina Roberson CMA BP Readings from Last 3 Encounters: 12/31/2009 128/82 08/20/2009 128/76 08/08/2009 139/70 A1C 6.2 11/06/2009 A1C 7.9 06/05/2009 Recent Labs Lab Test 11/06/09 0828 06/05/09 1032 ??? CHOL 164 184 ??? HDL 28* 27* ??? LDL 81 94 ??? TRIG 273* 316* ??? CHOLHDLRATIO 5.8* 6.8* Wt Readings from Last 3 Encounters: 12/31/2009 74.39 kg (164 lb) 08/20/2009 80.831 kg (178 lb 3.2 oz) 08/08/2009 81.375 kg (179 lb 6.4 oz) Current outpatient prescriptions Medication Sig ??? ACCU-CHEK STEPHEN STRP TEST 1-2 TIMES [...] AFFECTED AREA ONCE DAILY BEFORE BEDTIME ??? CHOLECALCIFEROL 43637 UNIT OR CAPS 2 CAPSULE DAILY ??? MUCINEX MAXIMUM STRENGTH 1200 MG OR TB12 1 TABLET EVERY 12 HOURS NEEDED ??? ASPIRIN 81 MG OR TABS 1 TABLET DAILY ??? PREVACID 30 MG OR CPDR ONE DAILY- PAUL per Gastroenterology at [facility] Histories reviewed and updated in [facility]. Diabetes: BP 128/82 12/31/2009 To recheck BP (done) GLC 94 11/06/2009 A1C 6.2 11/06/2009 LDL 81 11/06/2009 MICROL 8 11/06/2009 MICROALBUMIN 19.51 11/06/2009 REVIEW OF SYSTEMS: C: NEGATIVE for fatigue, unexpected change in weight I: NEGATIVE for worrisome rashes, moles or lesions E: NEGATIVE for acute vision problems or changes E/M: NEGATIVE for ear, mouth and throat problems R: NEGATIVE for significant cough or shortness of breath CV: NEGATIVE for chest pain, palpitations or new or worsening peripheral edema GI: NEGATIVE for new onset or worsening nausea, vomiting or diarrhea M: NEGATIVE for claudication, myalgias N: NEGATIVE for weakness, dizziness, syncope, headaches ENDOCRINE: DM, Lipids reviewed. H: NEGATIVE for easy bruising or bleeding problems P: NEGATIVE for changes in mood or affect EXAM: Vitals: BP 128/70 Pulse 60 Ht 1.626 m (5' 4) Wt 74.39 kg (164 lb) BMIE= Body mass index is 28.15 kg/(m^2). GENERAL APPEARANCE: alert and no acute distress PSYCH: mentation appears normal and affect normal/bright HENT: ear canals and TM's normal and nose and mouth without ulcers or lesions NECK: No carotid bruits. RESP: lungs clear to auscultation - no rales, rhonchi or wheezes CV: regular rate and rhythm, normal S1 S2, no S3 or S4 and no murmur, click or rub - ABDOMEN: soft, nontender, no HSM or masses and bowel sounds normal. No abdominal bruits. Past hx of gastritis- evaluated with EGD in 2004; trial of Omeprazole in effective; was on Prevacid and found that helpful; formulary denied EXT: no cyanosis or edema in lower extremities SKIN: no venous stasis changes NEURO: Normal strength and tone, sensory exam grossly normal, mentation intact and speech normal LYMPHATICS: no adenopathy. Foot Exam: normal DP and PT pulses, no trophic changes or ulcerative lesions and normal sensory exam ASSESSMENT/PLAN: 250.00FV Type 2 diabetes, HbA1C goal < 7% Comment: Well controlled; risk assessment Plan: Lipid panel reflex to direct LDL, Hemoglobin A1c, Comprehensive metabolic panel, TSH with free T4 reflex 272.4CL Hyperlipidemia LDL goal <100 Comment: Goals of therapy reviewed; Risk assessment; continue meds Plan: Lipid panel reflex to direct LDL 535.50F Gastritis Comment: EGD 2003; GI recommended PPI indefinitely, past trial of Omeprazole. Will try to decrease dose of PPI Plan: LANsoprazole (PREVACID) 15 MG capsule Pt advised to increase calcium and vit D. 268.9E Vitamin D deficiencies Comment: 06/05/2009 Vit D3 24 Plan: cholecalciferol (VITAMIN-D) 1000 UNIT capsule, Vitamin D deficiency screening Recheck, continue replacement 429.2 ASCVD Comment: Risk assessment; increased risk due to dx of DM Plan: Lipid panel reflex to direct LDL, Comprehensive metabolic panel V10.3 PERS HX OF BREAST MALIGNANCY Comment: last mammo through [facility]- will request. released from [facility] Plan: continue to monitor through PCP Tiffany Leonard MD Internal Medicine electronically signed 25 minutes is spent with patient, over 50% of that time spent providing counselling, discussing and reviewing meds and potential side effects. [employer] documented in this encounter Nursing Notes 12/31/2009 10:00 AM CDT >> CATINA ROBERSON Mon Dec 31, 2009 10:01 AM Patient presents with: Pre Visit Planning - Done Diabetes Edema - swelling in right ankle for the past month Pt thinks that she had her mammo in [place] in June of this year. Initial Ht 1.626 m (5' 4) Wt 74.39 kg (164 lb) Estimated Body mass index is 28.15 kg/(m^2) as calculated from the following: Height as of this encounter: 5' 4(1.626 m). Weight as of this encounter: 164 lb(74.39 kg).. BP completed using cuff size: regular FOOT EXAM Q1 YEAR( NO INBASKET) due on 1946 EYE EXAM Q1 YEAR( NO INBASKET) due on 1946 MAMMO Q1 YR INBASKET MESSAGE due on 07/05/2009 A1C Q6 MO( NO INBASKET) due on 05/06/2010 DIABETIC EDUCATION Q1 YEAR (NO INBASKET) due on 08/08/2010 ALT Q1 YR (NO INBASKET) due on 11/06/2010 CREATININE Q1 YEAR (NO INBASKET) due on 11/06/2010 LIPID MONITORING Q1 YEAR( NO INBASKET) due on 11/06/2010 MICROALBUMIN Q1 YEAR( NO INBASKET) due on 11/06/2010 TSH Q2 YEAR (NO INBASKET) due on 06/06/2011 COLONOSCOPY Q10 YR INBASKET MESSAGE due on 08/22/2012 TETANUS Q10 YR due on 06/01/2015 Catina Roberson CMA documented in this encounter Plan of Treatment Not on filedocumented as of this encounter Visit Diagnoses Diagnosis Type 2 diabetes, HbA1c goal < 7% (H) Type II or unspecified type diabetes aubrey litus without mention of complication, not stated as uncontrolled Hyperlipidemia LDL goal <100 Other and unspecified hyperlipidemia Gastritis Unspecified gastritis and gastroduodenit is without mention of hemorrhage Vitamin D deficiencies Unspecified vitamin D deficiency ASCVD Unspecified cardiovascular disease PERS HX OF BREAST MALIGNANCY Personal history of malignant neoplasm o f breast documented in this encounter Care Teams Flatwork Assembler Relationship Specialty Start Date End Date Tiffany Leonard MD PCP - General 04/16/01 05/23/21 documented as of this encounter
--- OUTSIDE RECORDS SUMMARY | 2021-12-25 14:09 | XMS_ITS | Encounter Summary ---
:1945 Author Organization [facility] Address [address] [place] [address]. [place] [address] Care Team Providers Name Role Phone Tiffany Leonard MD Primary Care Provider [phone] Reason for Visit Reason Onset Date Comments Refill Request 08/08/2010 neurontin Encounter Details Date Type Department Care Team Description 08/08/2010 MyC Refill [facility] Tiffany Leonard Refill Re [facility] Tammy Marinelli MD (neurontin) [address] [address] [address] [place] [id number] [phone] Social History Tobacco Use Types Packs/Day Years Used Date Smoking Tobacco: Former Cigarettes Quit : 05/14/1988 Alcohol Use Standard Drinks/Week Comments No 0 (1 standard drink = 0.6 oz pure alcoho l) Sex Assigned at Date Recorded Female 05/22/2021 3:03 PM CDT documented as of this encounter Miscellaneous Notes Telephone Encounter - Rakel Varghese - 08/08/2010 12:22 PM CDT Refill request for neurontin Last refill 05-30-10 Current RX with refills but mail order cant get med. Reordered to local pharmacy x3mo. Ok per RN protocol x 3mo. 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 It is a new prescription that hasn't beenfilled yet. Could you call/fax a prescription to [facility] in [place] @ [phone]. documented in this encounter Plan of Treatment Not on filedocumented as of this encounter Visit Diagnoses Diagnosis Type 2 diabetes, HbA1c goal < 7% (H) - P rimary Type II or unspecified type diabetes aubrey litus without mention of complication, not stated as uncontrolled documented in this encounter Care Teams Receiving Team Member Relationship Specialty Start Date End Date Tiffany Leonard MD PCP - General 04/16/01 documented as of this encounter
--- OUTSIDE RECORDS SUMMARY | 2021-12-25 14:09 | XMS_ITS | Encounter Summary ---
:1945 Author Organization [facility] Address [address] [place] [address]. [place] [address] Care Team Providers Name Role Phone Tiffany Leonard MD Primary Care Provider [phone] Reason for Visit (Routine) - Closed Specialty Diagnoses / Procedures Referred By Contact Refer red To Contact Radiology Diagnoses MRA HEAD W/O CONTRAST* Procedure Notes: Cariovascular disease,syncope and collapse,Hx of ASCVDl Syncope on 02/28/2011; small vessel changes on CT. MRI done 8 years ago in [place]; p* Rh Mri Procedures RADIOLOGY [address] [place], [place] [address] Phone: Fax: Referral ID Status Reason Start Date Expiration Date Visits Requ ested Visits Authorized [id number] Closed 03/11/2011 03/10/2012 1 1 Encounter Details Date Type Department Care Team Description 03/12/2011 [facility]iosclerotic cardiovascular [facility] MD sIis Syncope and collapse [address] [address] [facility] [place] [address] [id number] Social History Tobacco Use Types Packs/Day Years [...] 0 07/31 1200 MG OR HOURS NEEDED [id number]: Bronchitis acute ACCU-CHEK STEPHEN use as directed [...] bedtime. <100 documented as of this encounter Plan of Treatment Not on filedocumented as of this encounter Procedures Procedure Name Priority Date/Time Associated Diagnosis Comme nts MRA BRAIN (HOPI Routine 03/12/2011 9:17 AM ASCVD (arterioscl erotic Results for this OF SON) W/O SALES STRATEGY MANAGER cardiovascular d isease) procedure are in CONTRAST Syncope and collapse the res ults section. documented in this encounter Results MRI Angiogram head w/o contrast* (03/12/2011 9:17 AM SALES STRATEGY MANAGER) Anatomical Region Laterality Modality Head, SUBRAD MR NEURO, UMP MR NEURO Magn etic Resonance Specimen (Source) Anatomical Collection Method Collection Time Re ceived Time Location / / Volume Laterality 03/12/2011 9:17 AM SALES STRATEGY MANAGER Impressions 03/12/2011 11:09 AM SALES STRATEGY MANAGER MR ANGIOGRAM OF THE HEAD WITHOUT CONTRAS T ?? Mar 12, 2011 9:17:00 AM HISTORY: Syncope and collapse. TECHNIQUE: ??3D [id number] MR angiog cyndie of the head without contrast. COMPARISON: None. FINDINGS: ??The visualized portions of t he distal internal carotid and vertebral arteries, the basilar artery, chipewwa of Son, and the proximal anterior, middle and posterior cerebral arteries all appear normal. ??There is no evidence of aneury sm or vascular stenosis or occlusion. ?? IMPRESSION: ??Normal MR angiogram of the head. ?? Tiffany Leonard MD IMG MRI ORDERABLES documented in this encounter Visit Diagnoses Diagnosis ASCVD (arteriosclerotic cardiovascular d isease) Unspecified cardiovascular disease Syncope and collapse documented in this encounter Care Teams Russet Repairer Relationship Specialty Start Date End Date Tiffany Leonard MD PCP - General 04/16/01 05/23/21 documented as of this encounter
--- OUTSIDE RECORDS SUMMARY | 2021-12-25 14:09 | XMS_ITS | Encounter Summary ---
:1945 Author Organization [facility] Address [address] [place] [address]. [place] [address] Care Team Providers Name Role Phone Tiffany Leonard MD Primary Care Provider [phone] Reason for Visit Reason Onset Date Comments Refill Request 03/04/2011 Prevacid Encounter Details Date Type Department Care Team Description 03/04/2011 MyC Refill [facility] Tiffany Leonard Refill [facility] Tammy Marinelli MD (Prevacid) [address] [address] [address] [place] [id number] [phone] Social History Tobacco Use Types Packs/Day Years Used Date Smoking Tobacco: Former Cigarettes Quit : 05/14/1988 Alcohol Use Standard Drinks/Week Comments No 0 (1 standard drink = 0.6 oz pure alcoho l) Sex Assigned at Date Recorded Female 05/22/2021 3:03 PM CDT documented as of this encounter Miscellaneous Notes Telephone Encounter - Shirin Kinney - 03/04/2011 4:49 PM CST Refill PSO for quantity of: Last seen: 10/22/10 routine examHoracio Last filled:05/30/10 #180 RF-3 Mirian Chan MOTIVE WELDER Telephone Encounter - Shirin Kinney - 03/04/2011 4:45 PM AUTOMOTIVE WELDER Message from MyChart: Original authorizing provider: Tiffany Leonard MD, MD Mayra Quinn would like a refill of the following medications: LANsoprazole (PREVACID) 15 MG capsule [Tiffany Leonard MD, ] Preferred pharmacy: - [facility] Comment: Could a Rx for the above Lansoprazole be faxed to [facility]...thank you. MOTIVE WELDER documented in this encounter Plan of Treatment Not on filedocumented as of this encounter Visit Diagnoses Diagnosis Gastritis - Primary Unspecified gastritis and gastroduodenit is without mention of hemorrhage documented in this encounter Care Teams Wood Drilling Machine Operator Relationship Specialty Start Date End Date Tiffany Leonard MD PCP - General 04/16/01 05/23/21 documented as of this encounter
--- OUTSIDE RECORDS SUMMARY | 2021-12-25 14:10 | XMS_ITS | Encounter Summary ---
:1945 Author Organization [facility] Address [address] [place] [address]. [place] [address] Care Team Providers Name Role Phone Tiffany Leonard MD Primary Care Provider [phone] Reason for Referral - Closed Specialty Diagnoses / Procedures Referred By Contact Refer red To Contact Diagnoses Type 2 diabetes, HbA1c goal < 7% (H) [place] [address] [address] [address] Referral ID Status Reason Start Date Expiration Date Visits Requ ested Visits Authorized [id number] Closed 08/02/2009 03/01/2011 1 1 Reason for Visit Reason Comments Results follow up on labs and elevat ed glucose. Encounter Details Date Type Department Care Team Description [facility] Type 2 Di abetes, HbA1c Goal < 7% (H) (Primary Dx); Clinic Tammy Marinelli MD Microalbuminuria; [address] [address] [address] Hyperlipidemia LDL Goal <[address] [place] [phone] Social History Tobacco Use Types Packs/Day Years Used Date Smoking Tobacco: Former Cigarettes Quit : 05/14/1988 Alcohol Use Standard Drinks/Week Comments No 0 (1 standard drink = 0.6 oz pure alcoho l) Sex Assigned at Date Recorded Female 05/22/2021 3:03 PM CDT documented as of this encounter Last Filed Vital Signs Vital Sign Reading Time Taken Comments Blood Pressure 118/76 08/02/2009 8:43 AM CDT Pulse 62 08/02/2009 8:43 AM CDT Temperature - - Respiratory Rate 16 08/02/2009 8:43 AM CDT Oxygen Saturation - - Inhaled Oxygen Concentration - - Weight 81.4 kg (179 lb 8 oz) 08/02/2009 8:43 AM CDT Height - - Body Mass Index 29.64 06/05/2009 9:35 AM CDT documented in this encounter Patient Instructions Patient InstructionsTiffany Leonard - 08/02/2009 9:51 AM CDT Living with diabetes is hard work every day. We recognize this. Our efforts are to help you reach and maintain the following goals: HbA1c completed every 6 months, if your result is greater than 7.0 we would like this test completedevery 3 months. Next check 3 months. HbA1c level of less than 7.0 LDL (bad cholesterol) completed yearly LDL level less than 100 Microalbumin completed yearly, with a level less than 20. Maintain a blood pressure of less than 130/80 Yearly eye exam. ASSESSMENT: at this time: DIABETES Type II: Control Poor- New Diagnosis A1C 7.9 06/05/2009 HTN: Control good Last BP: 118/76 HYPERCHOLESTEROLEMIA: Control good LDL 94 06/05/2009 Heart disease: No active process PLAN: feels can improve diet, increased exercise planned, glucose monitoring 2-3 times per day to get a snse of blood sugars Follow up in 3 months- labs done prior Start Metformin XR 500 mg at dinner for two weeks then take two at dinner; reassess in 3 months May call [facility] [phone] to set up Nurse visit with Giselle Morrison RN; She can help start with diet changes. Past intolerance to Lisinopril; if microalbuminuria still elevated, may need to initiate Cozaar or related medication. documented in this encounter Progress Notes Tiffany Leonard - 08/02/2009 8:48 AM CDT SUBJECTIVE: Mayra Quinn presents today for evaluation for new DX DIABETES MELLITUS and related questions. Patient concerns: NEW Dx BP 118/76 08/02/2009 GLC 145 06/05/2009 A1C 7.9 06/05/2009 LDL 94 06/05/2009 MICROL 67 06/05/2009 MICROALBUMIN 41.10 06/05/2009 Patient glucose self monitoring: new Dx- getting meter. Blood glucose averages: not known- no meter yet What are you doing for exercise outside of work or your daily activities? walking Health maintenance updated? Reviewed, up to date. PHQ-2 Over the last two weeks- Have you been bothered by little interest or pleasure in doing things? No Over the last two weeks- Have you been been feeling down, depressed, or hopeless? No BP: Well controlled Last 3 Encounter Readings: Office Visit on 08/02/2009 08/02/2009 8:43 AM BP: 118/76 Office Visit on 06/05/2009 06/05/2009 9:35 AM BP: 126/76 Office Visit on 05/24/2008 05/24/2008 9:45 AM BP: 122/70 A1C 7.9 06/05/2009 Recent Labs Lab Test 06/05/09 1032 05/24/08 1112 ??? CHOL 184 170 ??? HDL 27* 27* ??? LDL 94 94 ??? TRIG 316* 241* ??? CHOLHDLRATIO 6.8* 6.2* Last 3 Encounter Readings: Office Visit on 08/02/2009 08/02/2009 8:43 AM Weight: 179 lb 8 oz (81.421 kg) Office Visit on 06/05/2009 06/05/2009 9:35 AM Weight: 182 lb (82.555 kg) Office Visit on 05/24/2008 05/24/2008 9:45 AM Weight: 188 lb (85.276 kg) Current outpatient prescriptions Medication Sig ??? ATENOLOL 25 MG OR TABS 1 tablet twice daily ??? FOSAMAX 70 MG OR TABS 1 Tablet Weekly ??? PRAVACHOL 20 MG OR TABS 1 TABLET AT BEDTIME ??? NEURONTIN 600 MG OR TABS 1 TABLET AM and 2 in PM ??? PREVACID 30 MG OR CPDR ONE DAILY- PAUL per Gastroenterology at [facility] ??? DIFFERIN 0.1 % EX GEL APPLY TO AFFECTED AREA ONCE DAILY BEFORE BEDTIME ??? CHOLECALCIFEROL 00937 UNIT OR CAPS 2 CAPSULE DAILY ??? MUCINEX MAXIMUM STRENGTH 1200 MG OR TB12 1 TABLET EVERY 12 HOURS NEEDED ??? ASPIRIN 81 MG OR TABS 1 TABLET DAILY [facility] REVIEW OF SYSTEMS: C: NEGATIVE for fatigue, [...] N: NEGATIVE for weakness, dizziness, syncope, headaches E: NEGATIVE for temperature intolerance, skin/hair changes H: NEGATIVE for easy bruising or bleeding problems P: NEGATIVE for changes in mood or affect EXAM: Vitals: BP 118/76 Pulse 62 Resp 16 Wt 179 lb 8 oz (81.421 kg) BMIE= There is no height on file to calculate BMI. GENERAL APPEARANCE: alert and no acute distress [...] mentation intact and speech normal LYMPHATICS: no adenopathy Foot Exam: normal DP and PT pulses, no trophic changes or ulcerative lesions and normal sensory exam ASSESSMENT/PLAN 250.00FV Type 2 Diabetes, HbA1c Goal < 7% (priary encounter diagnosis) Comment: New Diagnosis; goals of therapy; reviewed importance of good control and minimize progression of disease; minimize end organ involveemnt; Pt would benefit from DM Education Plan: CONSULT DIABETIC EDUCATION, LIPID PANEL, REFLEX TO DIRECT LDL, MICROALBUMIN (INC URINE CREAT), A.M.A. COMPREHENSIVE MET.PANEL, HEMOGLOBIN A1C, MONIQUE NOT PRESCRIBED (INTENTIONAL), METFORMIN HCL 500 MG PO TB24 791.0Y Microalbuminuria Comment: BP reviewed; goals of therapy Plan: MICROALBUMIN (INC URINE CREAT), MICROALBUMIN (INC URINE CREAT), MONIQUE NOT PRESCRIBED (INTENTIONAL) 272.4CL Hyperlipidemia LDL Goal <100 Comment: at goal on Pravachol, LDL94; need to lower TG. Plan: LIPID PANEL, REFLEX TO DIRECT LDL, A.M.A. COMPREHENSIVE MET.PANEL Tiffany Leonard MD Internal Medicine electronically signed 25 minutes is spent with patient, over 50% of that time spent providing counselling, discussing and reviewing meds and potential side effects. documented in this encounter Nursing Notes 08/02/2009 8:30 AM CDT >> MASSIEL OSORIO Marcia Aug 02, 2009 8:48 AM Patient presents with: Results - follow up on labs and elevated glucose. Initial BP 118/76 Pulse 62 Resp 16 Wt 179 lb 8 oz (81.421 kg) Estimated Body mass index is 29.64 kg/(m^2) as calculated from the following: Height as of 06/05/09: 5' 5.25(1.657 m). Weight as of this encounter: 179 lb 8 oz(81.421 kg). BP completed using cuff size. large. Chitra Osorio LPN documented in this encounter Plan of Treatment Not on filedocumented as of this encounter Visit Diagnoses Diagnosis Type 2 diabetes, HbA1c goal < 7% (H) - P rimary Type II or unspecified type diabetes aubrey litus without mention of complication, not stated as uncontrolled Microalbuminuria Proteinuria Hyperlipidemia LDL goal <100 Other and unspecified hyperlipidemia documented in this encounter Care Teams Finish Repair Worker Relationship Specialty Start Date End Date Tiffany Leonard MD PCP - General 04/16/01 05/23/21 documented as of this encounter
--- OUTSIDE RECORDS SUMMARY | 2021-12-25 14:10 | XMS_ITS | Encounter Summary ---
:1945 Author Organization [facility] Address [address] [place], [place] [address]. [place] [address] Care Team Providers Name Role Phone Tiffany Leonard MD Primary Care Provider [phone] Reason for Visit Reason Onset Date Comments Refill Request 06/11/2009 needs temp refill wh ile awaiting mail order supply Encounter Details Date Type Department Care Team Description 06/11/2009 Refill [facility] Tiffany Leonard R efill Request (needs Clinic Tammy BARRIENTOS temp refill while [address] [address] [address] awaiting mail order [address] [address] supply) [phone] Social History Tobacco Use Types Packs/Day Years Used Date Smoking Tobacco: Former Cigarettes Quit : 05/14/1988 Alcohol Use Standard Drinks/Week Comments No 0 (1 standard drink = 0.6 oz pure alcoho l) Sex Assigned at Date Recorded Female 05/22/2021 3:03 PM CDT documented as of this encounter Miscellaneous Notes Telephone Encounter - Shirin Kinney - 06/11/2009 4:19 PM CDT Pt is out of Atenolol. Awaiting mail order supply--requesting short term supply at local pharmacy. Copay covers a 30 day supply. Mirian Kinney RN. documented in this encounter Plan of Treatment Not on filedocumented as of this encounter Visit Diagnoses Diagnosis Unspecified cardiovascular disease - Shira mcleod documented in this encounter Care Teams Maple Products Supervisor Relationship Specialty Start Date End Date Tiffany Leonard MD PCP - General 04/16/01 05/23/21 documented as of this encounter
--- OUTSIDE RECORDS SUMMARY | 2021-12-25 14:10 | XMS_ITS | Encounter Summary ---
:1945 Author Organization [facility] Address [address] [place] [address] Care Team Providers Name Role Phone Tiffany Leonard MD Primary Care Provider [phone] Encounter Details Date Type Department Care Team Description 09/27/2006 Historic Notes INTERFACED REPORT Interface, Transcript on, Social History Tobacco Use Types Packs/Day Years Used Date Smoking Tobacco: Former Cigarettes Quit : 05/14/1988 Alcohol Use Standard Drinks/Week Comments No 0 (1 standard drink = 0.6 oz pure alcoho l) Sex Assigned at Date Recorded Female 05/22/2021 3:03 PM CDT documented as of this encounter Progress Notes Interface, Police Shift Commander - 05/20/2010 12:11 PM CDT General Information General Information - <R> How to be addressed Mayra - <R> It Application Development Manager Needed No Patient Contact Information - <R> supervising floorperson to Reinaldo Quinn- notify: - Contact Location: Home Local - <R> Phone 1: [phone] home - Cell cell - supervising floorperson #2: Carmita Velásquez (dtg) - Contact Location: [facility] - Phone 1: [phone] Home Advance Directive Advanced Health Care Directive Information - <R> Do you have a Advance No Health Care Directive? - Can patient name a Yes Surrogate Decision Maker? (Not legally binding) - Surrogate Name: Reinaldo Quinn () - Surrogate Home Phone see contact info Number: - <R> Would you like to Yes. AD booklet given receive information about Advanced Directives? Valuables Valuables - Valuables Yes - Type of Valuables Ring(s); Shirt; Purse - Disposition of Valuables purse sent home with Health and Illness History Health and Illness History - <R> Reason for right sided chest pain radiating down admission/chief complaint right arm and into back as stated by patient - Describe previous general Good health Previous reaction to anesthesia - Previous reaction to No anesthesia Prosthetic Implants - Prosthetic Implants None Vascular Access Device - Does the patient have a VAD No (Vascular Access Device)? Allergies Drug ?? Sulfa;Rash, Active f0?? Lipitor;Swelling, Active pard par Latex ?? Latex;Hives, Active General Medication Information General Medication Information - Medications brought to None hospital - Medication patch No medication patch(es) used - Do you take any herbal No remedies or dietary supplements Substance Use Tobacco Use - <R> Tobacco Use Date quit tobacco use, quit 1988 - Length of Tobacco Use Years of tobacco use, 28 years--cigarettes - Exposure to Second Hand Not exposed to second hand smoke Smoke Caffeine Use - <R> Caffeine Use Yes - Caffeine Type Coffee - Caffeine Amount < 3 cups/day - Date of Last Caffeine Use Date caffeine last used, 09-26-06 - Caffeine Withdrawal gets a little sluggish without it Patterns Alcohol Use - <R> History of Alcohol Use No Street/Recreational Drug Use - <R> History of No Street/Recreational Drug Use Family History Family History - History of family illness Yes - Parent History Heart disease, Stroke - Sibling History Heart disease Transfusion History Transfusion History - Blood No Avoidance/Restrictions - Previous blood transfusion No Review of Systems Cardiac - Cardiac Problems Yes - Cardiac Conditions/Symptoms Hypertension; Myocardial infarction; 1988 [place] with sten x1 - Usual Blood Pressure (BP), 130/70 Pulmonary - Pulmonary Problems No Peripheral Vascular - Peripheral Vascular Yes 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 Conditions/Symptoms Neuro-Muscular - Neuro Muscular Problems No ENT - ENT Problems No GI - GI Problems Yes - GI Conditions/Symptoms Ulcer; pt thinks ulcers should be healed Bowel Pattern - Date of last bowel movement Date of last BM, 09-26 - Usual bowel pattern Daily Bowel Program - Bowel Program No - Problems No Bladder Program - Bladder Program No Skin - Skin Problems No Immune - <R> Immune Problems No - <R> Immunizations Current Immunizations current - Immunization Record Copy of immunization record unavaliable - Influenza vaccine Date of last influenza vaccine, 12/05 - Pneumococcal Vaccine Date of last Pneumococcal vaccine, in the last 8 to 10 years - Tetanus/Diphtheria Date of last tetanus vaccine, 2004 Endocrine - <R> Endocrine Problems No Mental Health - <R> Mental Health Problems No Cognitive Perceptual General Pain Information - Preferred Pain Scale Numerical 0-10 - Acceptable Comfort Level 3 is acceptable comfort level rating - Expression of Pain Verbalization Chronic Pain - History of Chronic Pain No Sensory Deficits/Cognition - <R> Vision Problems Yes - Vision problems present Decreased visual acuity; in the evening - <R> Hearing Problems No - <R> Use of Sensory No Assistive Devices - <R> Reading Problems No - <R> Communication Problems No Activity-Exercise/Self Care Functional Screen - <R> Ambulation 0 - Independent with ambulation - <R> Transferring 0 - Independent with transfers - <R> Toileting 0- Independent with toileting - <R> Bathing 0- Independent with bathing - <R> Dressing 0- Independent with dressing - <R> Eating 0- Independent with eating - <R> Swallowing no - <R> Fall history within No history of falls last six months - <R> Which of the above None functional risks had a recent onset or change? Home Equipment - Equipment Used at Home No Activity-Exercise - Regular Exercise No - Describe usual activity Good tolerance - Describe current activity Good tolerance Living Environment - Lives with Spouse - Describe living environment House Financial Concerns - Financial Concerns No Nutrition/Metabolic Diet Information - Diet Regular - Regular Meal Pattern Breakfast; Lunch; Dinner - Describe appetite Good Nutrition Risk Screen - <R> Nutrition Risk Screen No risk indicators present Dental Information - Dental Care Receives routine dental care - Dental/Oral Status Teeth intact, good condition - Dentures No Health Perception/Health Management Health Management - Self Breast Exam Performs breast self-exam on regular basis, this august - Mammogram Date performed, july 2006 - Comments 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 - <R> NURSE OBSERVATION: Is No there reasonable cause to believe the patient has been abused, assaulted, is self abusive, neglected or exploited? Coping-Stress Tolerance Coping-Stress - <R> Have you had a recent No major change/significant loss/stressor in your life Values/Beliefs/Spiritual Care Values/Beliefs/Spiritual Care - <R> Would you like pastoral Does not wish to have anyone contacted care/clergy/senior graduate advisor notified? Mutuality/Individual Preferences Mutuality/Preferences - <R> What information would likes to be informed and does better with help us give you more written material rather than verbal personalized care? - <R> What if any limitations None on visitors, TV or phone calls would you like MARCIAL Ye (RN) Authored: General Information, Advance Directive, Valuables, Health and Illness History, Allergies, General Medication Information, Substance Use, Family History, Transfusion History, Review of Systems, Cognitive Perceptual, Activity- Exercise/Self Care, Nutrition/Metabolic, Health Perception/Health Management, Sleep/Relaxation, Role Relationships, Coping-Stress Tolerance, Values/Beliefs/Spiritual Care, Mutuality/Individual Preferences Lindsey Silverio (RN) Authored: Substance Use documented in this encounter Plan of Treatment Not on filedocumented as of this encounter Visit Diagnoses Not on filedocumented in this encounter Care Teams Care Tech Relationship Specialty Start Date End Date Tiffany Leonard MD PCP - General 04/16/01 05/23/21 documented as of this encounter
--- OUTSIDE RECORDS SUMMARY | 2021-12-25 14:10 | XMS_ITS | Encounter Summary ---
:1945 Author Organization [facility] Address [address] [place] [address] Care Team Providers Name Role Phone Tiffany Leonard MD Primary Care Provider [phone] Reason for Visit Reason Comments Imm/Inj pneumonia Encounter Details Date Type Department Care Team Description 12/19/2008 Allied Health/Nurse [facility] Imm/Inj (pneumonia) Visit [place] [address] [place] [id number] Social History Tobacco Use Types Packs/Day Years Used Date Smoking Tobacco: Former Cigarettes Quit : 05/14/1988 Alcohol Use Standard Drinks/Week Comments No 0 (1 standard drink = 0.6 oz pure alcoho l) Sex Assigned at Date Recorded Female 05/22/2021 3:03 PM CDT documented as of this encounter Nursing Notes 12/19/2008 1:45 PM CDT >> MILKA Oliver Dec 19, 2008 1:39 PM Inj only.MILKA MCGARRY LPN documented in this encounter Plan of Treatment Not on filedocumented as of this encounter Visit Diagnoses Diagnosis ASCVD (arteriosclerotic cardiovascular d isease) Unspecified cardiovascular disease documented in this encounter Care Teams Transplanter Orchid Relationship Specialty Start Date End Date Tiffany Leonard MD PCP - General 04/16/01 documented as of this encounter
--- OUTSIDE RECORDS SUMMARY | 2021-12-25 14:10 | XMS_ITS | Encounter Summary ---
:1945 Author Organization [facility] Address [address] [place] [address] Care Team Providers Name Role Phone Tiffany Leonard MD Primary Care Provider [phone] Encounter Details Date Type Department Care Team Description 09/27/2006 [facility]Automated Equipment Engineer Techn[facility] Hospitalists MD Sarabjit [address] [facility] [address] [phone] [place] [id number] (Wo rk) Social History Tobacco Use Types Packs/Day Years Used Date Smoking Tobacco: Former Cigarettes Quit : 05/14/1988 Alcohol Use Standard Drinks/Week Comments No 0 (1 standard drink = 0.6 oz pure alcoho l) Sex Assigned at Date Recorded Female 05/22/2021 3:03 PM CDT documented as of this encounter Progress Notes Travis Araiza - 10/05/2006 3:12 PM CDT FINAL DISCHARGE DIAGNOSES: 1.Chest pain, probably musculoskeletal. 2.Peripheral neuropathy. 3.History of heart disease. 4.History of breast cancer. 5.History of ulcer. PHYSICIAN FOLLOW-UP: Orlin Nunez is a 61-year-old female who will follow up with Dr. Leonard as scheduled to review the treatment of her musculoskeletal pain. DISCHARGE MEDICATIONS: 1.Neurontin 900 mg p.o. b.i.d. 2.Prevacid 20 mg p.o. every day. 3.Atenolol 25 mg p.o. b.i.d. (dosed twice daily by Rolfe sound printer). 4.Alendronate 70 mg p.o. q. week. New medications: 5.Cyclobenzaprine 5 mg p.o. t.i.d. p.r.n. arm pain. 6.Lortab 5/500 1-2 tablets p.o. q. 6 hours p.r.n. arm pain. 7.Aspirin 81 mg p.o. daily. 8.Pravachol 20 mg p.o. daily. CODE STATUS: The patient wishes to be full code. REASON FOR ADMISSION: The patient had chest pain. CONSULTATIONS: None. PROCEDURES OR OPERATIONS: The patient underwent a cardiac stress thallium testing which was negative for reversible ischemia. IMPORTANT LABS AND X-RAYS: The patient had troponins x3 that were negative. The patient had fastinglipid profile which showed her LDL was 64. HOSPITAL COURSE: The patient underwent stress testing with no evidence of new ischemic heart disease. She did have EKG changes during this stress test; however, her nuclear medicine portion of her stress test showed no evidence of ischemia. The patient was discharged from the hospital with the treatment for musculoskeletal pain. She will try Lortab 5/500, 1-2 tablets q. 6 hours p.r.n. arm pain, and Flexeril 5 mg p.o. t.i.d. p.r.n. pain. She will follow up with her primary MD for further workup. Electronically signed on 10/05/2006 15:11 by TRAVIS ARAIZA MD MT: varun Name: ORLIN NUNEZ Account: [id number] : 1945 Admit Date: [id number] Discharge Date: 2006 Document: [id number] cc: Tiffany Leonard MD documented in this encounter Plan of Treatment Not on filedocumented as of this encounter Visit Diagnoses Not on filedocumented in this encounter Care Teams Professor Of Food Biochemistry Relationship Specialty Start Date End Date Tiffany Leonard MD PCP - General 04/16/01 05/23/21 documented as of this encounter
--- OUTSIDE RECORDS SUMMARY | 2021-12-25 14:10 | XMS_ITS | Encounter Summary ---
:1945 Author Organization [facility] Address [address] [place] [address] Care Team Providers Name Role Phone Tiffany Leonard MD Primary Care Provider [phone] Reason for Visit Reason Comments Diabetes Encounter Details Date Type Department Care Team Description 08/29/2009 Office Visit [facility] Silke Muro DM w/o C omplication CLINIC D, RD Type II (Primary Dx) [facility] [address] [place], [place] [id number] Social History Tobacco Use Types Packs/Day Years Used Date Smoking Tobacco: Former Cigarettes Quit : 05/14/1988 Alcohol Use Standard Drinks/Week Comments No 0 (1 standard drink = 0.6 oz pure alcoho l) Sex Assigned at Date Recorded Female 05/22/2021 3:03 PM CDT documented as of this encounter Progress Notes Silke Muro D - 08/31/2009 2:05 PM CDT Patient Mayra Cotto here for Group 2. Accompanied by self. GLUCOSE MONITORING: Patient Glucose self monitoring as follows: three (3) times daily Results as follows: We got results from her recently and they were good VITALS: There were no vitals taken for this visit. LABS: [facility] 145 06/05/2009 PATIENT CONCERNS: As before (at previous class) figuring out what she can eat and that it becomes second nature so she's not having to second-guess everything EXERCISE: not assessed NUTRITION: Per food log she is eating very, very well in terms of choices, spacing, portions ASSESSMENT: See education record for list of topic discussed and patient evaluation. Again participated well in class. She offered helpful information to other class participants, too PLAN OF CARE: Change to plan of care include... None at this time FOLLOW-UP: To take class 2 Patient-stated goal written and given to patient. documented in this encounter Plan of Treatment Not on filedocumented as of this encounter Visit Diagnoses Diagnosis Type II or unspecified type diabetes aubrey litus without mention of complication, not stated as uncontrolled - Primary documented in this encounter Care Teams Graduate Assistant Athletic Trainer Relationship Specialty Start Date End Date Tiffany Leonard MD PCP - General 04/16/01 05/23/21 documented as of this encounter
--- OUTSIDE RECORDS SUMMARY | 2021-12-25 14:10 | XMS_ITS | Encounter Summary ---
:1945 Author Organization [facility] Address [address] [place] [address] Care Team Providers Name Role Phone Tiffany Leonard MD Primary Care Provider [phone] Encounter Details Date Type Department Care Team Description 07/21/2007 Abstract [facility] Abstract, Provid er LABS FROM [facility] [address] [place] [address] Social History Tobacco Use Types Packs/Day Years [...] Name Priority Date/Time Associated Diagnosis Comme nts HCL LDL-CHOLESTEROL Routine 07/21/2007 DIAGNOSIS NOT YET Res ults for this DEFINED procedure are i n the results section . ABSTRACT MAMMO-NO CHARGE Routine 07/21/2007 HCL TRIGLYCERIDES Routine 07/21/2007 DIAGNOSIS NOT YET Resul ts for this DEFINED procedure are i n the results section . HCL AST Routine 07/21/2007 DIAGNOSIS NOT YET Results fo r this DEFINED procedure are i n the results section . HCL HDL CHOLESTEROL Routine 07/21/2007 DIAGNOSIS NOT YET Res ults for this DEFINED procedure are i n the results section . HCL CREATININE Routine 07/21/2007 DIAGNOSIS NOT YET Results for this DEFINED procedure are i n the results section . HCL CHOLESTEROL Routine 07/21/2007 DIAGNOSIS NOT YET Results for this DEFINED procedure are i n the results section . documented in this encounter Results TRIGLYCERIDES [[id number]] (07/21/2007) P athologist Signature Triglycerides 188@ mg/dL [facility] Provider Abstract LABORATORY Performing Organization Address [facility] Phon e Number MISYS HDL CHOLESTEROL [[id number]] (07/21/2007) P athologist Signature HDL Cholesterol 31@ mg/dL [facility] Provider Abstract LABORATORY Performing Organization Address [facility] Phon e Number MISYS LDL-CHOLESTEROL [[id number]] (07/21/2007) P athologist Signature LDL Cholesterol 103@ mg/dL [facility] Calculated Provider Abstract LABORATORY Performing Organization Address [facility] Phon e Number MISYS CHOLESTEROL [[id number]] (07/21/2007) P athologist Signature Cholesterol 172@ 115 - 199 MISYS mg/dL Provider Abstract LABORATORY Performing Organization Address [facility] Phon e Number MISYS CREATININE [[id number]] (07/21/2007) P athologist Signature Creatinine 0.6@ mg/dL M[facility] Provider Abstract LABORATORY Performing Organization Address [facility] Phon e Number MISYS AST [[id number]] (07/21/2007) P athologist Signature AST 16@ U/L M[facility] Provider Abstract LABORATORY Performing Organization Address [facility] Phon e Number MISYS ABSTRACT MAMMO-NO CHARGE (07/21/2007) Anatomical Region Laterality Modality Other Narrative This result has an attachment that is no t available. Provider Abstract GENERAL IMAGING documented in this encounter Visit Diagnoses Diagnosis DIAGNOSIS NOT YET DEFINED - Primary documented in this encounter Care Teams Photographer Motion Picture Relationship Specialty Start Date End Date Tiffany Leonard MD PCP - General 04/16/01 05/23/21 documented as of this encounter
--- OUTSIDE RECORDS SUMMARY | 2021-12-25 14:10 | XMS_ITS | Encounter Summary ---
:1945 Author Organization [facility] Address [address] [place] [address] Care Team Providers Name Role Phone Tiffany Leonard MD Primary Care Provider [phone] Reason for Visit Reason Comments Imm/Inj Encounter Details Date Type Department Care Team Description 12/31/2006 Allied Health/Nurse [facility] Imm/Inj Visit [place] [address] [place] [address] Social History Tobacco Use Types Packs/Day Years Used Date Smoking Tobacco: Former Cigarettes Quit : 05/14/1988 Alcohol Use Standard Drinks/Week Comments No 0 (1 standard drink = 0.6 oz pure alcoho l) Sex Assigned at Date Recorded Female 05/22/2021 3:03 PM CDT documented as of this encounter Progress Notes Lindsey Calderón - 12/31/2006 11:11 AM CDT Injectable Influenza Immunization Documentation Form NAME: Mayra Quinn : 1945 DATE: 12/31/2006 FLU VACCINE PROCEDURE DOCUMENTATION Injectable Influenza Immunization Documentation Form 1. Has the patient received the information for the influenza vaccine? YES 2. Does the patient have any of the following contraindications? Allergy to eggs? No Allergic reaction to previous influenza vaccines? No Paralyzed by Guillain-Oelrichs syndrome? No Currently have moderate or severe illness? No Allergy to contact lens solution/thimerosol? No 3. The vaccine has been administered and the patient was instructed to wait 15 minutes before leaving the building in the event of an allergic reaction: YES Vaccination given by aq documented in this encounter Plan of Treatment Not on filedocumented as of this encounter Visit Diagnoses Diagnosis Need for prophylactic vaccination and in oculation against influenza - Primary documented in this encounter Care Teams Computer Salesperson Retail Relationship Specialty Start Date End Date Tiffany Leonard MD PCP - General 04/16/01 05/23/21 documented as of this encounter
--- OUTSIDE RECORDS SUMMARY | 2021-12-25 14:10 | XMS_ITS | Encounter Summary ---
:1945 Author Organization [facility] Address [address] [place] [address]. [place] [address] Care Team Providers Name Role Phone Tiffany Leonard MD Primary Care Provider [phone] Reason for Visit Reason Onset Date Comments Results 06/30/2008 lab results Encounter Details Date Type Department Care Team Description 06/16/2008 Telephone [facility] Tiffany Leonard Results ( lab results) Clinic Darrian Marinelli MD [address] [place] [place] [address] [place], [place] [address] [phone] Social History Tobacco Use Types Packs/Day Years Used Date Smoking Tobacco: Former Cigarettes Quit : 05/14/1988 Alcohol Use Standard Drinks/Week Comments No 0 (1 standard drink = 0.6 oz pure alcoho l) Sex Assigned at Date Recorded Female 05/22/2021 3:03 PM CDT documented as of this encounter Miscellaneous Notes Telephone Encounter - Jayla Antoine - 06/16/2008 11:57 AM CDT Pt is calling for lab results. She says she needs a copy of results to take to [place] with her, so this nurse will send this out. She was advised that PCP would contact her with recommendations. documented in this encounter Plan of Treatment Not on filedocumented as of this encounter Visit Diagnoses Not on filedocumented in this encounter Care Teams Store Hand Relationship Specialty Start Date End Date Tiffany Leonard MD PCP - General 04/16/01 05/23/21 documented as of this encounter
--- OUTSIDE RECORDS SUMMARY | 2021-12-25 14:10 | XMS_ITS | Encounter Summary ---
:1945 Author Organization [place] Address [address] [place] [address] Care Team Providers Name Role Phone Tiffany Leonard MD Primary Care Provider [phone] Reason for Visit Reason Comments Diabetes Education diet and meter education Encounter Details Date Type Department Care Team Description 08/08/2009 Allied Health/Nurse [facility] Education Visit Clinic [place] (diet and meter [address] education) [place] [phone] Social History Tobacco Use Types Packs/Day Years Used Date Smoking Tobacco: Former Cigarettes Quit : 05/14/1988 Alcohol Use Standard Drinks/Week Comments No 0 (1 standard drink = 0.6 oz pure alcoho l) Sex Assigned at Date Recorded Female 05/22/2021 3:03 PM CDT documented as of this encounter Last Filed Vital Signs Vital Sign Reading Time Taken Comments Blood Pressure 139/75 08/08/2009 9:29 AM (from Extend ed CDT Vitals) Pulse - - Temperature - - Respiratory Rate - - Oxygen Saturation - - Inhaled Oxygen - - Concentration Weight 81.4 kg (179 lb 6.4 08/08/2009 8:08 AM oz) CDT Height - - Body Mass Index 29.63 06/05/2009 9:35 AM CDT documented in this encounter Patient Instructions Patient InstructionsChad Morrison - 08/08/2009 9:41 AM CDT 1--exercise 30 min every other day to 1 hr daily 2--follow MY PLATE PATIENT SUPPORT ASSOCIATE and start carb counting in 3-4 days. 3--start Metformin when arrives 4--take FSG as directed 5--call or make appt for further questions documented in this encounter Progress Notes Chad Morrison - 08/08/2009 9:40 AM CDT Patient new diagnosis of DM and needs meter and diet education. Patient is here for diet and metereducation. She was given written and verbal instruction on Diabetes and it's complications, label reading, portion size, food choices, carb counting, eye/foot care, ADA goals, exercise, and glucose meter teaching. Handouts--UNDERSTANDING DIABETES & GOALS FOR YOUR DIABETIC CARE Diagnosis--DM2 Accompanied with--self Medications--Has Metformin ordered and waiting for mail order delivery to start. Problems taking medications regularaly:none reported Side effects? Went over side effects of Metformin. Exercise--states in past walked 3 miles most days but developed neuropathy of feet and stopped but starting up again. What are you doing for exercise outside of work or daily activity? Walks now for 30 minutes every other day slowly. Patient was informed of goal of 30 min of aerobic exercise every other day to daily. Discussed use of walking sticks to increase calorie burn with walking. Diet-- does normally eat 3 meals per day but feels her problem in portion control. lInstructed on MYPLATE PATIENT SUPPORT ASSOCIATE & carb counting. Patient is to eat 3 to 4 carb units per meal with 1 to 2 snacks per day of 1 to 2 carb units. Handouts--MY PLATE PATIENT SUPPORT ASSOCIATE, CARB COUNTING QUIDE, and 100 CALORIE SNACKS. Meter--Given Accu-chek Aviav. Instructed on use and demonstrated how to do FSG with reading of 159 2hrs after breakfast. Patient glucose self monitoring: Instructed to di 3 times per week for 2-3 weeks then go to 3 timesper week. Informed ow when to check FSG and goal numbers. Symptoms of low blood sugar: none. Instructed on S/S of hyper/hypoglycemia with treatment. Giselle Morrison RN documented in this encounter Nursing Notes 08/08/2009 8:00 AM CDT >> CHAD MORRISON ThuAug 08, 2009 9:42 AM Patient presents with: Diabetic Education - diet and meter education Initial BP 139/70 Wt 179 lb 6.4 oz (81.375 kg) Estimated Body mass index is 29.63 kg/(m^2) as calculated from the following: Height as of 06/05/09: 5' 5.25(1.657 m). Weight as of this encounter: 179 lb 6.4 oz(81.375 kg).. BP completed using cuff size: large documented in this encounter Plan of Treatment Not on filedocumented as of this encounter Visit Diagnoses Diagnosis Type 2 diabetes, HbA1c goal < 7% (H) - P rimary Type II or unspecified type diabetes aubrey litus without mention of complication, not stated as uncontrolled documented in this encounter Care Teams Canvas Goods Fabricator Relationship Specialty Start Date End Date Tiffany Leonard MD PCP - General 04/16/01 05/23/21 documented as of this encounter
--- OUTSIDE RECORDS SUMMARY | 2021-12-25 14:10 | XMS_ITS | Encounter Summary ---
:1945 Author Organization [place] Address [address] [place] [address] Care Team Providers Name Role Phone Tiffany Leonard MD Primary Care Provider [phone] Reason for Visit Reason Comments Physical Mammo 07-06 and will after On cology appt in June normal Dexa 02-04-06 osteoporosis at [facility] Encounter Details Date Type Department Care Team Description 05/10/2007 Office Visit [facility] Tiffany Leonard ASCVD; Clinic Darrian Marinelli MD MIXED HYPERLIPIDEMIA; [address] [address] CIMARRON A VE IDIO PERIPH NEURPTHY NOS; [place], [place] OSTEOPOROSIS NOS; [place] [address] PERS HX OF BREAST MALIGNANCY [id number] Social History Tobacco Use Types Packs/Day Years Used Date Smoking Tobacco: Former Cigarettes Quit : 05/14/1988 Alcohol Use Standard Drinks/Week Comments No 0 (1 standard drink = 0.6 oz pure alcoho l) Sex Assigned at Date Recorded Female 05/22/2021 3:03 PM CDT documented as of this encounter Last Filed Vital Signs Vital Sign Reading Time Taken Comments Blood Pressure 118/64 05/10/2007 1:00 PM CDT Pulse 56 05/10/2007 1:00 PM CDT Temperature - - Respiratory Rate 15 05/10/2007 1:00 PM CDT Oxygen Saturation - - Inhaled Oxygen Concentration - - Weight 84.4 kg (186 lb) 05/10/2007 1:00 PM CDT Height 164.5 cm (5' 4.75) 05/10/2007 1:00 PM CDT Body Mass Index 31.19 05/10/2007 1:00 PM CDT documented in this encounter Progress Notes Tiffany Leonard - 05/10/2007 1:23 PM CDT Chief Complaint: physical Chief Complaint Patient presents with ??? Physical Mammo 07-06 and will after Oncology appt in June [facility]oscopy 2002 [facility] of Present Illness: Mayra Qunin is a 61 year old female who presents to follow up multiple medical concerns. Shehas previously had a mastectomy and hysterectomy. Colonoscopy up to date. She is also here to followup on GI concerns- refill of PPI, Underlying heart disease- needs refills on Pravachol and and Atenolol. Past Medical History Diagnosis Date ??? MIXED HYPERLIPIDEMIA 1988 Statin; Pravachol; Low HDL ??? PERS HX OF BREAST MALIGNANCY 1997 Mastectomy and chemotherapy; Recurrence 2001; Chemo and radiation; Tamoxifen, now Arimedex; followed at [facility] ??? ASCVD 1988 PTCA ??? OSTEOPOROSIS NOS Fosamax Past Surgical History Procedure Date ??? Mastectomy, mod radical (any) 1997 right ??? Hysterectomy, karen 1989 Fibroid ??? Appendectomy 1989 ??? Arthroscopy knee rt/lt right knee ??? Tonsillectomy child luciano ??? Angioplasty 1988 [facility] Allergies Allergen Reactions ??? Sulfa Drugs Hives ??? Latex Hives and Itching Bandaids and other contact Current outpatient prescriptions Medication Sig ??? PREVACID 30 MG OR CPDR ONE DAILY ??? FOSAMAX 70 MG OR TABS 1 Tablet Weekly ??? NEURONTIN 300 MG OR CAPS 900 mg bid ??? PRAVACHOL 20 MG OR TABS 1 TABLET AT BEDTIME ??? ATENOLOL 25 MG OR TABS 1 tablet twice daily ??? ASPIRIN 81 MG OR TABS 1 TABLET DAILY History Social History ??? Marital Status: N/A Spouse Name: N/A Number of Children: N/A ??? Years of Education: N/A Occupational History ??? Not on file. Social History Main Topics ??? Tobacco Use: Quit Quit date: 05/14/1988 ??? Alcohol Use: No ??? Drug Use: No ??? Sexually Active: Yes -- Male partner(s) Other Topics Concern ??? Caffeine No 2 cups per day ??? Exercise Yes walk regularly ??? Self Exams Yes breast cancer followed by [facility] Social History Narrative ??? No narrative on file Family History Problem Relation ??? Respiratory Mother copd ??? C.A.D. Father ??? Hypertension Father ??? Cancer Maternal Grandmother unknown etiology ??? Cancer Maternal Grandfather unknown etiology ??? Stroke Paternal Grandfather ??? C.A.D. Brother ??? Heart Brother from a heart attack Review Of Systems Skin: negative Eyes: negative Ears/Nose/Throat: negative Respiratory: negative Cardiovascular: negative Gastrointestinal: HEartburn- PPI helpful; colonoscopy up to date Genitourinary: Previous hysterectomy; bladder OK EXPLOSIVE SPECIALIST: PRevious hysterectomy and mastectomy; Musculoskeletal: negative Neurologic: negative Psychiatric: negative Hematologic/Lymphatic/Immunologic: Breast cancer with recurrence; currently doing well. Endocrine: Cholesterol reviewed including goals of therapy PHYSICAL EXAMINATION: BP 118/64 Pulse 56 Resp 15 Ht 5' 4.75 (1.65m) Wt 186 lbs (84.4kg) LMP Hysterectomy General appearance: healthy, alert and no distress Skin: Skin color, texture, turgor normal. No rashes or lesions. Head: Normocephalic. No masses, lesions, tenderness or abnormalities Eyes: conjunctivae/corneas clear. PERRL, EOM's intact. Ears: External ears normal. Canals clear. TM's normal. Nose/Sinuses: Nares normal. Septum midline. Mucosa normal. No drainage or sinus tenderness. Oropharynx: Lips, mucosa, and tongue normal. Teeth and gums normal. Neck: Neck supple. No adenopathy. Thyroid symmetric, normal size,, Carotids without bruits. Back: Back symmetric, no curvature. ROM normal. No CVA tenderness. Lungs: Percussion normal. Good diaphragmatic excursion. Lungs clear Heart: PMI normal. No lifts, heaves, or thrills. RRR. No murmurs, clicks gallops or rub Breasts: no breast tissue Lymph Nodes: No anterior cervical, posterior cervical, supraclavicular, infraclavicular, axillary, or inguinal adenopathy Abdomen: Abdomen soft, non-tender. BS normal. No masses, organomegaly Pelvic: Previous hysterectomy Extremities: Extremities normal. No deformities, edema, or skin discoloration. Musculoskeletal: Spine ROM normal. Muscular strength intact. Peripheral pulses: normal pulses Neuro: Gait normal. Reflexes normal and symmetric. Sensation grossly WNL. Subjective neuropathy ASSESSMENT/PLAN 429.2 ASCVD Note: Goals of therapy reviewed; Risk assessment; continue meds Plan: ATENOLOL 25 MG OR TABS, A.M.A. COMPREHENSIVE MET.PANEL 272.2 MIXED HYPERLIPIDEMIA Note: Goals of therapy reviewed; Risk assessment; continue meds Plan: PRAVACHOL 20 MG OR TABS, A.M.A. LIPID PANEL, A.M.A. COMPREHENSIVE MET.PANEL 356.9 IDIO PERIPH NEURPTHY NOS Note: previous chemo; 2000 Plan: NEURONTIN 600 MG OR TABS Symptoms improved; meds well tolerated 733.00 OSTEOPOROSIS NOS Note: dexa reviewed Plan: Continue calcium (1200-1500mg), vitamin D (400-800IU), and regular exercise. V10.3 PERS HX OF BREAST MALIGNANCY Note: Chemo 2000 Plan: no evidence of subsequent recurrence Tiffany Leonard MD electronically signed 45 minutes is spent with patient, over 50% of that time spent providing counselling, discussing and reviewing meds and potential side effects. documented in this encounter Nursing Notes 05/10/2007 1:00 PM CDT >> MASSIEL HA 05/10/2007 1:07 pm Mayra Quinn presents for a physical and needs rx refills. Initial BP 118/64 Pulse 56 Resp 15 Ht 5' 4.75 (1.65m) Wt 186 lbs (84.4kg) LMP Hysterectomy Body mass index is 31.18 kg/(m^2).. BP completed using cuff size: large documented in this encounter Plan of Treatment Not on filedocumented as of this encounter Visit Diagnoses Diagnosis Unspecified cardiovascular disease Mixed hyperlipidemia Unspecified hereditary and idiopathic pe ripheral neuropathy Osteoporosis, unspecified Personal history of malignant neoplasm o f breast documented in this encounter Care Teams Cash Grain Grower Relationship Specialty Start Date End Date Tiffany Leonard MD PCP - General 04/16/01 05/23/21 documented as of this encounter
--- OUTSIDE RECORDS SUMMARY | 2021-12-25 14:10 | XMS_ITS | Encounter Summary ---
:1945 Author Organization [place] Address [address] [place] [address]. [place] [address] Care Team Providers Name Role Phone Tiffany Leonard MD Primary Care Provider [phone] Reason for Visit Reason Onset Date Comments Refill Request 08/15/2009 test strip clarifica tion Encounter Details Date Type Department Care Team Description 08/15/2009 Refill [facility] Tiffany Leonard R efmariela Request (test Clinic Darrian BARRIENTOS strip clarification) [address] [place] [address] [place] [address] [place], [place] [phone] (Wo rk) [phone] Social History Tobacco Use Types Packs/Day Years Used Date Smoking Tobacco: Former Cigarettes Quit : 05/14/1988 Alcohol Use Standard Drinks/Week Comments No 0 (1 standard drink = 0.6 oz pure alcoho l) Sex Assigned at Date Recorded Female 05/22/2021 3:03 PM CDT documented as of this encounter Miscellaneous Notes Telephone Encounter - Karen Morrison - 08/15/2009 3:08 PM CDT Fax request on clarification of correct test strips. Patient has Accu-chek Loree machine and correct test strips and lancet needles ordered. Giselle Morrison RN documented in this encounter Plan of Treatment Not on filedocumented as of this encounter Visit Diagnoses Diagnosis Type 2 diabetes, HbA1c goal < 7% (H) - P rimary Type II or unspecified type diabetes aubrey litus without mention of complication, not stated as uncontrolled documented in this encounter Care Teams Branch Store Manager Relationship Specialty Start Date End Date Tiffany Leonard MD PCP - General 04/16/01 05/23/21 documented as of this encounter
--- OUTSIDE RECORDS SUMMARY | 2021-12-25 14:10 | XMS_ITS | Encounter Summary ---
:1945 Author Organization [place] Address [address] [place] [address] Care Team Providers Name Role Phone Tiffany Leonard MD Primary Care Provider [phone] Reason for Visit Reason Comments Diabetes Encounter Details Date Type Department Care Team Description 08/27/2009 Office Visit [facility] Silke Muro w/o Complication Clinic [address] Type II (Primary Dx) [facility] DIABETES [address] [place] [phone] [address] [place], [place] [id number] Social History Tobacco Use Types Packs/Day Years Used Date Smoking Tobacco: Former Cigarettes Quit : 05/14/1988 Alcohol Use Standard Drinks/Week Comments No 0 (1 standard drink = 0.6 oz pure alcoho l) Sex Assigned at Date Recorded Female 05/22/2021 3:03 PM CDT documented as of this encounter Progress Notes Silke Muro - 08/27/2009 4:49 PM CDT Patient Mayra Quinn here for Group 1. Accompanied by self. GLUCOSE MONITORING: Patient Glucose self monitoring as follows: three (3) times daily Results as follows: am glucose- 106,107; after breakfast 152: suppertime glucose- 105,135 and Supperpostprandial glucose- 88,115 VITALS: There were no vitals taken for this visit. LABS: [facility] 145 06/05/2009 PATIENT CONCERNS: States she wants to be able to relax about this- not overanalyze everything she does, including food choices EXERCISE: Has neuropathy, but trying to get back into walking routine. May buy poles to help her Balance when walking NUTRITION: Brought 2-3 day food log for review. Eating very well so far in terms of choices, portions, frequency of eating ASSESSMENT: See education record for list of topic discussed and patient evaluation. Doing well- nice glucoses, eating well. Main thing to work on is activity. Participated well in class PLAN OF CARE: Change to plan of care include... None at this time FOLLOW-UP: She is scheduled for all three classes. Next is this week- 08/29 Patient-stated goal written and given to patient. documented in this encounter Plan of Treatment Not on filedocumented as of this encounter Visit Diagnoses Diagnosis Type II or unspecified type diabetes aubrey litus without mention of complication, not stated as uncontrolled - Primary documented in this encounter Care Teams Filtration Plant Operator Relationship Specialty Start Date End Date Tiffany Leonard MD PCP - General 04/16/01 05/23/21 documented as of this encounter
--- OUTSIDE RECORDS SUMMARY | 2021-12-25 14:10 | XMS_ITS | Encounter Summary ---
:1945 Author Organization [place] Address [address] [place] [address] Care Team Providers Name Role Phone Tiffany Leonard MD Primary Care Provider [phone] Encounter Details Date Type Department Care Team Description 09/27/2006 Emergency room Shaan Fraga MD EMERGENCY PHYSIC [facility] [address] [place], [place] [address] (Wo rk) Social History Tobacco Use Types Packs/Day Years Used Date Smoking Tobacco: Former Cigarettes Quit : 05/14/1988 Alcohol Use Standard Drinks/Week Comments No 0 (1 standard drink = 0.6 oz pure alcoho l) Sex Assigned at Date Recorded Female 05/22/2021 3:03 PM CDT documented as of this encounter Progress Notes Shaan Fraga - 10/05/2006 8:38 AM CDT FINAL CHIEF COMPLAINT: Chest pain. HISTORY OF PRESENT ILLNESS: Orlin Nunez is a 60-year-old female who presents to the EmergencyDepartment with complaints of chest pain that woke her up at approximately 2:00 a.m. and it lasted about 30 minutes. She describes it as tightness all across her chest. She has also complained of some pain in her right shoulder and arm and into her right side of her back. She had some shortness of breath associated with it and then went away and she went back to sleep. It woke her up at 5:00 a.m. andit seemed to persist this time was still present upon arrival one hour and 10 minutes later. She denied any nausea, vomiting, lightheadedness, dizziness, diaphoresis associated with the discomfort. Shesaid the chest tightness is somewhat similar to her [place] in 1988. She does note over the last few weeks, having increasing episodes of chest tightness such as this often comes during the night. It sometimes comes during the day and not necessarily associated with activity. She has had some stress test since her MO in 1988 that have been normal but none recently. PAST MEDICAL HISTORY: Myocardial infarction in 1988 with angioplasty and a right mastectomy, statuspost breast cancer. PAST SURGICAL HISTORY: Hysterectomy. FAMILY HISTORY: Significant family history of heart disease. MEDICATIONS: Aspirin, atenolol, Fosamax, Pravachol, gabapentin. SOCIAL HISTORY: Nonsmoker, no drugs or alcohol. Lives at home with her . ALLERGIES: Lipitor, sulfa and latex. REVIEW OF SYSTEMS: See HPI, all others reviewed and negative. PHYSICAL EXAMINATION: VITAL SIGNS: Blood pressure 170/76, pulse 54, respiratory rate 20, temperature 96.3 orally, 96% on room air. GENERAL: She is alert and oriented. HEENT: Negative. NECK: Supple. CARDIOVASCULAR: Bradycardic, regular rhythm. LUNGS: Clear to auscultation bilaterally. CHEST: No reproducible pain on palpation. ABDOMEN: Bowel sounds are present, soft, nontender, nondistended. EXTREMITIES: No clubbing, cyanosis or edema. SKIN: Warm and dry, no rash. DIAGNOSTIC LABORATORY AND IMAGING: Troponin less than 0.04, myoglobin is normal at 27. CBC, CMP andlipase are normal. EKG showed a normal sinus rhythm, rate of 61, no signs of ST segment elevation oracute injury pattern. No change from 08/29/1994. Chest x-ray shows a normal mediastinal, no infiltrates, consolidation or pneumothorax. EMERGENCY DEPARTMENT COURSE: The patient was evaluated in the critical care room upon arrival placed on 2 liters O2 nasal cannula, awake overnight monitor. Blood was drawn and sent to lab. Patient received 162 mg of aspirin and three sublingual nitroglycerin without relief of her pain. At this time, her painis a 3 on a scale of 0-10. My initial concern was for cardiac ischemia, initial EKG looks normal at this time but the increasing episodes that give a clinical history such as unstable angina. Other possibility was GERD but she did not describe this as a heartburn or related to her eating. It did seem a little is concerning related to GERD and the fact that it comes during the night. She also had no right upper quadrant tenderness. I would also consider that in light of her shoulder pain and it is possible cholelithiasis or cholecystitis. She has no history of recent travel, recent surgery has no risk factors for PE and her clinical history seems unlikely. Otherwise, in terms of her aorta, her media stinum appears normal. With no relief with the nitroglycerin, we tried a GI cocktail with no relief and then subsequently received 30 mg of Toradol IV and her pain subsided. She has been resting comfortably. I contacted Dr. Araiza and I suspect that the patient needs more of a cardiac workup at this history of increased frequency of these events is concerning for unstable angina. I asked Dr. Araiza regarding Lovenox and he will discuss that with the change management specialist and after he sees the patientwill make a decision. PLAN: Admit to [facility], Dr. Araiza. IMPRESSION: 1. Chest pain, rule out acute coronary syndrome. 2. Unstable angina. Electronically signed on 10/05/2006 08:37 by SHAAN FRAGA MD MT: ms Name: ORLIN NUNEZ Account: [id number] : 1945 Visit Date: 09/27/2006 Document: [id number] cc: Tiffany Leonard MD documented in this encounter Plan of Treatment Not on filedocumented as of this encounter Visit Diagnoses Not on filedocumented in this encounter Care Teams Signing Agent Relationship Specialty Start Date End Date Tiffany Leonard MD PCP - General 04/16/01 05/23/21 documented as of this encounter
--- OUTSIDE RECORDS SUMMARY | 2021-12-25 14:10 | XMS_ITS | Encounter Summary ---
:1945 Author Organization [facility] Address [address] [place] [address]. [place] [address] Care Team Providers Name Role Phone Tiffany Leonard MD Primary Care Provider [phone] Reason for Referral - Closed Specialty Diagnoses / Procedures Referred By Contact Refer red To Contact Diagnoses Pain [place], [place] [address] [place] [address] Referral ID Status Reason Start Date Expiration Date Visits Requ ested Visits Authorized [id number] Closed 10/13/2006 03/01/2011 1 1 Reason for Visit Reason Comments Pre-Op Exam Encounter Details Date Type Department Care Team Description 10/13/2006 Office Visit [facility] Tiffany Leonard PREOP EXA M OTHER SPECIFIED (Primary Dx); Clinic Darrian Marinelli MD EYE ANOMALY NOS; [address] [address] [address] JOINT PAIN-SHLDER; [place], [place] OSTEOPOROSIS NOS [place] [id number] Social History Tobacco Use Types Packs/Day Years Used Date Smoking Tobacco: Former Cigarettes Quit : 05/14/1988 Alcohol Use Standard Drinks/Week Comments No 0 (1 standard drink = 0.6 oz pure alcoho l) Sex Assigned at Date Recorded Female 05/22/2021 3:03 PM CDT documented as of this encounter Last Filed Vital Signs Vital Sign Reading Time Taken Comments Blood Pressure 126/64 10/13/2006 1:00 PM CDT Pulse 68 10/13/2006 1:00 PM CDT Temperature - - Respiratory Rate - - Oxygen Saturation - - Inhaled Oxygen Concentration - - Weight 85.4 kg (188 lb 3.2 oz) 10/13/2006 1:00 PM CDT Height 164.5 cm (5' 4.75) 10/13/2006 1:00 PM CDT Body Mass Index 31.56 10/13/2006 1:00 PM CDT documented in this encounter Patient Instructions Patient InstructionsiTffany Leonard - 10/13/2006 1:42 PM CDT Continue FOSAMAX (renewed RX), calcium (1200-1500mg), vitamin D (400-800IU), and regular exercise. documented in this encounter Progress Notes Giselle Guevara - 10/13/2006 1:08 PM CDT PRE-OP EVALUATION: Today's date: 10/13/2006 Mayra Quinn (: 1945) presents for pre-operative evaluation as requested by Dr. Jj Aguilar. She requires evaluation and anesthesia clearance prior to undergoing surgery/procedure for treatment of droopy eyelids . Proposed procedure: Ophthalmic Plastic Surgery in both eyes Date of Surgery/ Procedure: 10/23/06 Time of Surgery/ Procedure: 7:30 AM Hospital/Surgical Facility: [facility] Day Surgery Fax number for surgical facility: [phone] Primary Physician: Dr Tiffany Leonard Type of Anesthesia Anticipated: to be determined History of anesthesia complications: NONE History of abnormal bleeding: NONE History of blood transfusions: NO Patient has a Health Care Directive or Living Will: NO HPI: See problem list for active medical problems. Problems all longstanding and stable, except as noted/documented. See ROS for pertinent symptoms related to these conditions. . Patient Active Problem List Diagnoses Date Noted ??? 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 MIXED HYPERLIPIDEMIA [272.2] Statin; Pravachol; Low HDL ??? PERS HX OF BREAST MALIGNANCY [V10.3] Mastectomy and chemotherapy; Recurrence 2001; Chemo and radiation; Tamoxifen, now Arimedex; followed at [facility] ??? ASCVD [429.2] [facility]CA ??? OSTEOPOROSIS NOS [733.00] Fosamax Past Medical History Diagnosis Date ??? MIXED HYPERLIPIDEMIA 1988 Statin; Pravachol; Low HDL ??? PERS HX OF BREAST MALIGNANCY 1997 Mastectomy and chemotherapy; Recurrence 2001; Chemo and radiation; Tamoxifen, now Arimedex; followed at [facility] ??? ASCVD 1988 PTCA ??? OSTEOPOROSIS NOS Fosamax Past Surgical History Procedure Date ??? Mastectomy, mod radical (any) 1997 right ??? Hysterectomy, karen 1989 Fibroid ??? Appendectomy 1989 ??? Arthroscopy knee rt/lt right knee ??? Tonsillectomy child luciano ??? Angioplasty 1988 [facility] Current outpatient prescriptions Medication Sig ??? PREVACID 30 MG OR CPDR ONE DAILY ??? NEURONTIN 300 MG OR CAPS 900 mg bid ??? PRAVACHOL 20 MG OR TABS 1 TABLET AT BEDTIME ??? ATENOLOL 25 MG OR TABS 1 tablet twice daily ??? FOSAMAX 70 MG OR TABS 1 Tablet Weekly ??? ASPIRIN 81 MG OR TABS 1 TABLET DAILY OTC products: None, except as noted above Allergies Allergen Reactions ??? Sulfa Drugs Hives ??? Latex Hives and Itching Bandaids and other contact Latex Allergy: YES: Precautions to take: Saline solution preservative. History Substance Use Topics ??? Tobacco Use: Quit Quit date: 05/14/1988 ??? Alcohol Use: No History Drug Use No REVIEW OF SYSTEMS: CONSTITUTIONAL:NEGATIVE for fever, chills, change in weight INTEGUMENTARY/SKIN: NEGATIVE for worrisome rashes, moles or lesions EYES: droopy eyelids ENT/MOUTH: NEGATIVE for ear, mouth and throat problems RESP:NEGATIVE for significant cough or SOB BREAST: mastectomy on the right CV: NEGATIVE for chest pain, palpitations or peripheral edema GI: 2 months ago had EGD demonstrated several small duodenal ulcers- nonhemorrhagic; PPI BID for 2 months and then daily; currently on daily : No UTI symptoms MUSCULOSKELETAL: right arma dn shoudler impingement; pain worse at night. NEURO: NEGATIVE for weakness, dizziness or paresthesias ENDOCRINE: NEGATIVE for temperature intolerance, skin/hair changes HEME/ALLERGY/IMMUNE: Off ASA 1 week; no bleeding PSYCHIATRIC: NEGATIVE for changes in mood or affect EXAM: BP 126/64 Pulse 68 Ht 5' 4.75 (1.65m) Wt 188 lbs 3.2 oz (85.4kg) LMP Hysterectomy GENERAL APPEARANCE: healthy, alert and no distress EYES: PERRL and conjunctivae and sclerae normal HENT: ear canals and TM's normal and nose and mouth without ulcers or lesions NECK: no adenopathy, no asymmetry, masses, or scars and thyroid normal to palpation RESP: lungs clear to auscultation - no rales, rhonchi or wheezes CV: regular rates and rhythm, normal S1 S2, no S3 or S4 and no murmur, click or rub LYMPHATICS: normal ant/post cervical and supraclavicular nodes ABDOMEN: soft, nontender, without hepatosplenomegaly or masses and bowel sounds normal (female): No costovertebral angle tenderness MS: shoudler pain; limited range of motion SKIN: no suspicious lesions or rashes NEURO: Normal strength and tone, mentation intact and speech normal PSYCH: mentation appears normal and affect normal/bright DIAGNOSTICS: Not indicated IMPRESSION: Reason for surgery/procedure: droopy eyelids Diagnosis/reason for consult: Diagnoses Dx Name Primary Encounter Dx ??? EYE ANOMALY NOS ??? PREOP EXAM OTHER SPECIFIED Yes ??? JOINT PAIN-SHLDER ??? OSTEOPOROSIS NOS For above listed surgery and anesthesia: Patient is at LOW risk for surgery/procedure and perioperative/procedure complications. RECOMMENDATIONS: Approval given to proceed with proposed procedure, without further diagnostic evaluation. Resume all medications post-operative or per surgeon. Meds reviewed; on the am of surgery, hold all meds except for the Atenolol; Other meds may be able to take them at a later time that same day or the following AM Signed Electronically by: Tiffany Leonard MD Copy of this evaluation report is provided to requesting physician. documented in this encounter Nursing Notes 10/13/2006 1:00 PM CDT >> GISELLE GUEVARA 10/13/2006 1:08 pm Patient presents with: Pre-Op Exam Initial BP 126/64 Pulse 68 Ht 5' 4.75 (1.65m) Wt 188 lbs 3.2 oz (85.4kg) LMP Hysterectomy Body mass index is 31.55 kg/(m^2).. BP completed using cuff size: large documented in this encounter Plan of Treatment Not on filedocumented as of this encounter Procedures Procedure Name Priority Date/Time Associated Diagnosis Comme [facility] ORTHOPEDIC INTERNET SOURCER REFERRAL Routine 10/21/2006 Joint Pain- Shlder documented in this encounter Results CONSULT ORTHO INTERNET SOURCER (10/21/2006) Narrative This result has an attachment that is no t available. Tiffany Leonard MD REFERRAL documented in this encounter Visit Diagnoses Diagnosis Other specified pre-operative examinatio n - Primary Unspecified congenital anomaly of eye Pain in joint, shoulder region Osteoporosis, unspecified documented in this encounter Care Teams Faculty Support Coordinator Relationship Specialty Start Date End Date Tiffany Leonard MD PCP - General 04/16/01 05/23/21 documented as of this encounter
--- OUTSIDE RECORDS SUMMARY | 2021-12-25 14:10 | XMS_ITS | Encounter Summary ---
:1945 Author Organization [facility] Address [address] [place] [address]. [place] [address] Care Team Providers Name Role Phone Tiffany Leonard MD Primary Care Provider [phone] Encounter Details Date Type Department Care Team Description 10/23/2006 Operative Report Lora Aguilar MD (Email Marketing Intern) [place] O[facility]TH[facility] AST SURG [address] [facility] [address] [place] [address] (Wo rk) Social History Tobacco Use Types Packs/Day Years Used Date Smoking Tobacco: Former Cigarettes Quit : 05/14/1988 Alcohol Use Standard Drinks/Week Comments No 0 (1 standard drink = 0.6 oz pure alcoho l) Sex Assigned at Date Recorded Female 05/22/2021 3:03 PM CDT documented as of this encounter Progress Notes Lora Aguilar - 11/06/2006 11:12 AM CDT FINAL 1st Biological Technical Officer: 2nd Biological Technical Officer: PREOPERATIVE DIAGNOSIS: 1. Bilateral upper eyelid ptosis. 2. Bilateral upper eyelid mechanical ptosis. POSTOPERATIVE DIAGNOSIS: 1. Bilateral upper eyelid ptosis. 2. Bilateral upper eyelid mechanical ptosis. PROCEDURE: 1. Repair bilateral upper eyelid ptosis. 2. Repair of bilateral upper eyelid mechanical ptosis. ANESTHESIA: Local monitored. COMPLICATIONS: None. INDICATIONS FOR PROCEDURE: Orlin Nunez had bilateral upper eyelid ptosis obstructing her vision and interfering with daily activities. The patient also had excessive skin overhanging the upper eyelids, contributing to the visual obstruction. PROCEDURE: The patient was taken to the operating room and received a local block of 2% lidocaine without epinephrine. The block was administered transcutaneously along the eyelid crease and the planned incision line was outlined with a marking pen. The patient was then prepped and draped in the usual sterile fashion. The incision was then made along the previously marked area. A moderate amount of skin was excised taking care to allow adequate closure and avoid lagophthalmos. Riki scissors were then used to develop a plane over the septum. The septum was opened and a small amount of orbital fat was removed. Levator aponeurosis was then disinserted from the tarsus and a plane was developed between the aponeurosis and the underlying tarsus and Aquino's muscle. A 5-0 Mersilene suture was thenpassed through the tarsus in a lamellar fashion and externalized through the levator aponeurosis. This was tied off in a temporary fashion and the patient was asked to sit up and the eyelids height andcontour evaluated. This was repeated until a satisfactory height and contour were obtained, and two additional sutures were placed lateral to the initial suture. This resulted in a normal contour and height to the upper eyelids. Attempted overcorrection of 0.5 mm was obtained. The redundant levator aponeurosis was then excised and the skin was then closed with running 6-0 fast absorbing suture. The patient left the operating room in stable condition. Electronically signed on 11/06/2006 11:11 by LORA AGUILAR MD MT: lg Name: ORLIN NUNEZ MRN: [id number] Account: [id number] : 1945 Procedure Date: 10/23/2006 Document: [id number] documented in this encounter Plan of Treatment Not on filedocumented as of this encounter Visit Diagnoses Not on filedocumented in this encounter Care Teams Nursing Coordinator Relationship Specialty Start Date End Date Tiffany Leonard MD PCP - General 04/16/01 05/23/21 documented as of this encounter
--- OUTSIDE RECORDS SUMMARY | 2021-12-25 14:10 | XMS_ITS | Encounter Summary ---
:1945 Author Organization [facility] Address [address] [place] [address] Care Team Providers Name Role Phone Fernanda Fernandez MD Primary Care Provider [phone] Reason for Visit Reason Comments Physical Mammo 07/08 neg at [facility], pt is going to [place] in June & will have Mammo & Colon there at that time, PT IS FASTING Refill Request Pt needs refills Encounter Details Date Type Department Care Team Description [facility] G eneral Medical Examination at a Health Care Facility (Primary Dx); Clinic Tammy Marinelli MD Unspecified Cardiovascular Disease; [id number] [address] [id number] [address] Unspecified Osteoporosis; [address] 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; [place] [id number] Screening for Malignant Neoplasm of the Cervix; [id number] PERS HX OF BREAST MALIGNANCY ; Acne; Gastritis ; Hyperlipidemia LDL Goal <100; Vitamin D Defic iencies; Type 2 Diabetes , HbA1c Goal < 7% (H) Social History Tobacco Use Types Packs/Day Years Used Date Smoking Tobacco: Former Cigarettes Quit : 05/14/1988 Alcohol Use Standard Drinks/Week Comments No 0 (1 standard drink = 0.6 oz pure alcoho l) Sex Assigned at Date Recorded Female 05/22/2021 3:03 PM CDT documented as of this encounter Last Filed Vital Signs Vital Sign Reading Time Taken Comments Blood Pressure 126/76 06/05/2009 9:35 AM CDT Pulse 76 06/05/2009 9:35 AM CDT Temperature - - Respiratory Rate - - Oxygen Saturation - - Inhaled Oxygen Concentration - - Weight 82.6 kg (182 lb) 06/05/2009 9:35 AM CDT Height 165.7 cm (5' 5.25) 06/05/2009 9:35 AM CDT Body Mass Index 30.05 06/05/2009 9:35 AM CDT documented in this encounter Progress Notes Shante Osorio - 07/10/2009 9:12 AM CDT Pt has appt scheduled for August 02. Was rescheduled from late June Shante Osorio - 06/19/2009 4:55 PM CDT Called and left message for pt to make a follow up at her convenience to review her medications. Fernanda Fernandez - 06/04/2009 8:52 AM CDT Chief Complaint Patient presents with ??? Physical Mammo 07/08 neg at [facility], pt is going to [place] in June & will have Mammo & Colon there at that time, PT IS FASTING ??? Refill Request Pt needs refills CC: Orlin Nunez is an 63 year old woman who presents for preventive health visit. HPI: Besides routine health maintenance, she has no other health concerns today . Here to follow upon Cholesterol, BP, osteoporosis Healthy Habits: Do you get at least three servings of dairy daily (milk, cheese, yogurt, etc.)? yes Outside of work or daily activities, how many days per week do you exercise for 30 minutes or longer? 2 Have you had an eye exam in the past two years? yes Do you see a dentist twice per year? yes Staff Signature Gayathri ROSARIO PHQ-2 Over the last two weeks- Have you been bothered by little interest or pleasure in doing things? No Over the last two weeks- Have you been feeling down, depressed, or hopeless? No Abuse: Current or Past(Physical, Sexual or Emotional)- No Do you feel safe in your environment - Yes History Substance Use Topics ??? Tobacco Use: Quit Quit date: 05/14/1988 ??? Alcohol Use: No The patient does not drink >3 drinks per day nor >7 drinks per week. Once a year Staff Signature Gayathri ROSARIO History of abnormal Pap smear: no All Histories reviewed and updated in [facility]. ROS: C: NEGATIVE for fever, chills, change in weight I: NEGATIVE for worrisome rashes, moles or lesions E: NEGATIVE for vision changes or irritation ENT: NEGATIVE for ear, mouth and throat problems R: NEGATIVE for significant cough or SOB B: NEGATIVE for masses, tenderness or discharge CV: NEGATIVE for chest pain, palpitations or peripheral edema GI: NEGATIVE for nausea, abdominal pain, heartburn, or change in bowel habits; due for colonosocpy- set to have exam done at [facility] : NEGATIVE for unusual urinary or vaginal symptoms. M: NEGATIVE for significant arthralgias or myalgia Hem/Onc: past breast cancer; due for mammo- will have done at [facility] N: NEGATIVE for weakness, dizziness or paresthesias P: NEGATIVE for changes in mood or affect OBJECTIVE: BP 126/76 Pulse 76 Ht 5' 5.25 (1.657 m) Wt 182 lb (82.555 kg) BP rechecked GENERAL APPEARANCE: health, alert and no distress EYES: Eyes grossly normal to inspection, PERRL and conjunctivae and sclerae normal HENT: ear canals and TM's normal, nose and mouth without ulcers or lesions, oropharynx clear and oral mucous membranes moist NECK: no adenopathy, no asymmetry, masses, or scars and thyroid normal to palpation RESP: lungs clear to auscultation - no rales, rhonchi or wheezes BREAST: Eight mastectomy; Left normal without masses, tenderness or nipple discharge and no palpableaxillary masses or adenopathy CV: regular rates and rhythm, normal S1 S2, no S3 or S4, no murmur, click or rub, no peripheral edema and peripheral pulses strong ABDOMEN: soft, nontender, no hepatosplenomegaly, no masses and bowel sounds normal (female): PELVIC: Ext Gen - Female external genitalia WNL BUS - No Infection Vagina - Clear, mild atrophic changes Cervix - No Lesions, PAP done Uterus - Ant, firm, mobile, normal size for age Adnexa - No masses bilaterally RV - Confirm; no masses; stool firm MS: no musculoskeletal defects are noted and gait is age appropriate without ataxia SKIN: no suspicious lesions or rashes NEURO: Normal strength and tone, sensory exam grossly normal, mentation intact and speech normal PSYCH: mentation appears normal and affect normal/bright Counseling: regular exercise healthy diet/nutrition osteoporosis prevention/bone health- improve Vit D replacement ASSESSMENT/PLAN: V70.0 Routine General Medical Examination at a Health Care Facility (primary encounter diagnosis) Plan: A THIN LAYER PAP SCREEN, TSH W/FREE T4 REFLEX, LIPID PANEL, REFLEX TO DIRECT LDL, A.M.A. COMPREHENSIVE MET.PANEL, HGB, HEMOGLOBIN A1C Comment: ETL DATA ARCHITECT exam including Pap and mammo scheduled to be done at [facility] per pt. 429.2 Unspecified Cardiovascular Disease Plan: ATENOLOL 25 MG OR TABS, NIASPAN 500 MG OR TBCR, LIPID PANEL, REFLEX TO DIRECT LDL, A.M.A. COMPREHENSIVE MET.PANEL, MICROALBUMIN (INC URINE CREAT) Comment: Cardiovascular risk factors reviewed; meds reviewed treatment goals reviewed and reordered 733.00 Unspecified Osteoporosis Plan: FOSAMAX 70 MG OR TABS Comment: Continue daily calcium (1200-1500mg), vitamin D (1000IU), and regular exercise. 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 Comment: previous chemo; 2000 V76.2 Screening for Malignant Neoplasm of the Cervix Plan: A THIN LAYER PAP SCREEN Comment: HEALTH CARE MAINTENANCE V10.3 PERS HX OF BREAST MALIGNANCY Plan: mammo- at [facility]; pt to request report sent to [facility]; right mastectomy several years ago. Comment: no longer on Arimedex; Dx 2001; will be release from [facility]. 706.1AN Acne Plan: DIFFERIN 0.1 % EX GEL Comment: has previously seen derm; given Differin and finds it to be helpful would prefer NOT to return to derm to continue med. 535.50F Gastritis Plan: PREVACID 30 MG OR CPDR Triggers reviewed; no record of other PPI; may need to change due to formulary; no record of Omeprazole Comment: takes ASA for ASCVD but need PPI otherwise, cannot tolerate. [facility] has recommended name brand PPI 272.4CL Hyperlipidemia LDL Goal <100 Plan: PRAVACHOL 20 MG OR TABS, LIPID PANEL, REFLEX TO DIRECT LDL LDL has been to goal; TG running bit high and HDL ahs been on the low side. Comment: Pravachol; add Niaspan to help with HDL and TG. 268.9E Vitamin D Deficiencies Plan: 25 HYDROXYVITAMIN D2 & D3 Continue Vit D replacement Comment: 04/2008 Vit D3 11 increased to 24 continue supplement 250.00FV Type 2 Diabetes, HbA1c Goal < 7% Plan: New Ds after labs returned; needs follow up including monitoring, diet, and meds- appt recommended. Comment: Fernanda Fernandez MD Internal Medicine electronically signed 15++ minutes in addition to HEALTH CARE MAINTENANCE are spent with patient, over 50% of that time spent providing counselling, discussing and reviewing medical conditions/concerns, meds and potential side effects. documented in this encounter Nursing Notes 06/05/2009 9:30 AM CDT >> REESE Oliver Jun 05, 2009 9:42 AM Patient presents with: Physical - Mammo 07/08 neg at [facility], pt is going to [place] in June & will have Mammo & Colon there at that time, PT IS FASTING Initial BP 130/80 Pulse 76 Ht 5' 5.25 (1.657 m) Wt 182 lb (82.555 kg) Estimated Body mass index is 30.05 kg/(m^2) as calculated from the following: Height as of this encounter: 5' 5.25(1.657 m). Weight as of this encounter: 182 lb(82.555 kg).. BP completed using cuff size: oralia ROSARIO documented in this encounter Plan of Treatment Not on filedocumented as of this encounter Procedures Procedure Name Priority Date/Time Associated Diagnosis Comme nts HCL ALBUMIN URINE (INC Routine 06/05/2009 10:33 Unspecified R esults for this CREAT) AM CDT Cardiovascular procedure are in Disease the results section. HCL LIPID PANEL, Routine 06/05/2009 10:32 Routine General Resu lts for this REFLEX TO DIRECT LDL AM CDT Medical Examination procedure are in at a Health Care the results Facility section. Unspecified Cardiovascular Disease Hyperlipidemia LDL Goal <100 HCL 25 HYDROXYVITAMIN Routine 06/05/2009 10:32 Vitamin D Re sults for this D2 & D3 AM CDT Deficiencies procedure are i n the results section. HCL HEMOGLOBIN NONLAB Routine 06/05/2009 10:32 Routine General Results for this AM CDT Medical Examination procedur e are in at a Health Care the results Facility section. HCL COMPREHENSIVE Routine 06/05/2009 10:32 Routine General Res ults for this METABOLIC PANEL AM CDT Medical Examination proce dure are in at a Health Care the results Facility section. Unspecified Cardiovascular Disease HCL TSH W/FREE T4 Routine 06/05/2009 10:32 Routine General Res ults for this REFLEX AM CDT Medical Examination procedur e are in at a Health Care the results Facility section. HCL GLYCATED Routine 06/05/2009 10:32 Routine General Results for this HEMOGLOBIN AM CDT Medical Examination procedur e are in at a Health Care the results Facility section. HCL PAP THIN LAYER Routine 06/05/2009 12:00 Screening for Resu lts for this SCREEN AM CDT Malignant Neoplasm of proced ure are in the Cervix the results Routine General section. Medical Examination at a Health Care Facility documented in this encounter Results (ABNORMAL) MICROALBUMIN (INC URINE CREAT) (06/05/2009 10:33 AM CDT) Patholo gist Method Time Signature Creatinine 163 mg/dL [facility] Urine [facility] Albumin Urine 67 mg/L [facility] mg/L [facility] Albumin Urine 41.10 (H) 0 - 20 [facility] mg/g Cr mg/g Cr [facility] Specimen Anatomical Collection Method Collection Time Receive d Time (Source) Location / / Volume Laterality 06/05/2009 10:33 06/05/2009 AM CDT 10:38 AM CDT Fernanda Fernandez MD LABORATORY Performing Organization Address City/State/ZIP Code Phon e Number [facility] [address] [place], [place] [id number] [place] [address] LABS (ABNORMAL) HEMOGLOBIN A1C (06/05/2009 10:32 AM CDT) P athologist Signature Hemoglobin A1C 7.9 (H) 4.3 - 6.0 [place] % [facility] Specimen Anatomical Collection Method Collection Time Receive d Time (Source) Location / / Volume Laterality 06/05/2009 10:32 06/05/2009 AM CDT 10:37 AM CDT Fernanda Fernandez MD LABORATORY Performing Organization Address City/[facility]/ZIP Code Phon e Number [facility] [address] [place], [place] [address] [facility] HGB (06/05/2009 10:32 AM CDT) athologist Signature Hemoglobin 14.4 11.7 - 15.7 [place] g/dL [facility] Specimen Anatomical Collection Method Collection Time Receive d Time (Source) Location / / Volume Laterality 06/05/2009 10:32 06/05/2009 AM CDT 10:37 AM CDT Fernanda Fernandez MD LABORATORY Performing Organization Address City/[facility] Code Phon e Number [facility] [address] [place], [place] [address] [facility] LAB (ABNORMAL) A.M.A. COMPREHENSIVE MET.PANEL (06/05/2009 10:32 AM CDT) athologist Signature Sodium 141 133 - 144 [place] mmol/L [facility] Potassium 4.4 3.4 - 5.3 [place] mmol/L [facility] Chloride 101 94 - 109 [place] mmol/L [facility] Carbon Dioxide 30 20 - 32 [place] mmol/L [facility] Anion Gap 10 6 - 17 [place] mmol/L [facility] Glucose 145 (H) 60 - 99 [place] mg/dL [facility] Urea Nitrogen 12 7 - 30 [place] mg/dL [facility] Creatinine 0.65 0.52 [facility] mg/dL [facility] Comment: New IDMS-traceable calibration beginning 07/01/07 GFR Estimate >90 >60 mL/min/1.7m2 [place] E AGAN [facility] GFR Estimate If Black >90 >60 mL/min/1.7m2 [facility] Calcium 9.2 8.5 - 10.4 mg/dL [facility] Bilirubin Total 0.6 0.2 - 1.3 mg/dL [facility] Albumin 4.2 3.3 - 4.9 g/dL [facility] Comment: Reference range changed on 11/01. Protein Total 7.7 6.8 - 8.8 g/dL [place] EA JORGE LUIS [facility] Comment: As of 07, reference range reflects plasma specimen type. Alkaline Phosphatase 76 40 - 150 U/L [facility] ALT 21 0 - 50 U/L [facility] CLIN IC LAB AST 31 0 - 45 U/L [facility] CL[facility] IC LAB Specimen Anatomical Collection Method Collection Time Receive d Time (Source) Location / / Volume Laterality 06/05/2009 10:32 06/05/2009 AM CDT 10:37 AM CDT Fernanda Fernandez MD LABORATORY Performing Organization Address City/[facility]/ZIP Code Phon e Number [facility] [address] [place] [address] [facility] (ABNORMAL) LIPID PANEL, REFLEX TO DIRECT LDL (06/05/2009 10:32 AM CDT) athologist Signature Cholesterol 184 0 - 200 [facility] mg/dL CLINIC LAB Comment: LDL Cholesterol is the primary guide to therapy. The NCEP recommends further evaluation of: patients with cholesterol <200 mg/dL if additional risk factors are present, cholesterol >240 mg/dL, triglycerides >150 mg/dL, or HDL <40 mg/dL. Triglycerides 316 (H) 0 - 150 mg/dL [facility] HDL Cholesterol 27 (L) 50 - 110 mg/dL [facility] LDL Cholesterol Calculated 94 0 - 129 mg/dL [facility] Comment: LDL Cholesterol is the primary guide to therapy: LDL-cholesterol goal in high risk patients is <100 mg/dL and in very high risk patients is <70 mg/dL. VLDL-Cholesterol 63 (H) 0 - 30 mg/dL [facility] Cholesterol/HDL Ratio 6.8 (H) 0.0 - 5.0 [facility] Specimen Anatomical Collection Method Collection Time Receive d Time (Source) Location / / Volume Laterality 06/05/2009 10:32 06/05/2009 AM CDT 10:37 AM CDT Fernanda Fernandez MD LABORATORY Performing Organization Address City/[facility]/ZIP Code Phon e Number [facility] [address] [place] [address] [facility] TSH W/FREE T4 REFLEX (06/05/2009 10:32 AM CDT) P athologist Signature TSH 1.17 0.4 - 5.0 [facility] mU/L CLINIC LAB Specimen Anatomical Collection Method Collection Time Receive d Time (Source) Location / / Volume Laterality 06/05/2009 10:32 06/05/2009 AM CDT 10:37 AM CDT Fernanda Fernandez MD LABORATORY Performing Organization Address City/State/ZIP Code Phon e Number [facility] [address] [place] [address] [facility] (ABNORMAL) 25 HYDROXYVITAMIN D2 & D3 (06/05/2009 10:32 AM CDT) Component Value Ref Test Analysis Performed At [facility] gist Range Method Time Signature 25 [place] Vit D2 <5 ug/L [facility] 25 [place] Vit D3 24 ug/L [facility] 25 OH Vit D <29 30 - 75 [facility] total Season, race, dietary intake, and treatm ent affect the concentration of ug/L [id number]. Values may decrease during ye er months and increase [facility]AMP[facility]S during summer months. Values less than 30 ug/L may indicate Vitamin D deficiency. (L) Specimen Anatomical Collection Method Collection Time Receive d Time (Source) Location / / Volume Laterality 06/05/2009 10:32 06/05/2009 AM CDT 10:37 AM CDT Fernanda Fernandez MD LABORATORY Performing Organization Address City/State/ZIP Code Phon e Number [facility] [address] [place] [address] [facility] A THIN LAYER PAP SCREEN (06/05/2009 12:00 AM CDT) Component Value Ref Test Analysis Performed At [facility] gist Range Method Time Signature PAP NIL COPATH Copath Report COPATH Patient Name: ORLIN NUNEZ MR#: [id number] Specimen #: [id number] Collected: 06/05/2009 Received: 06/06/2009 Reported: 06/07/2009 14:26 Ordering Phy(s): FERNANDA FERNANDEZ SPECIMEN/STAIN PROCESS: Pap thin layer prep screening ([facility]) ? Pap-Cyto x 1, Reflex HPV x 1 SOURCE: Cervical, endocervical ---- Pap thin layer prep screening ([facility]) SPECIMEN ADEQUACY: Satisfactory for evaluation. -Transformation zone component absent. CYTOLOGIC INTERPRETATION: Negative for Intraepithelial Lesion or Malignancy Electronically signed out by: TOMMY Cain (ASCP) Processed and screened at [facility] CLINICAL HISTORY: Post Menopausal Complete Hysterectomy, TESTING LAB LOCATION: [address] ??[id number] COLLECTION SITE: Client: ??[facility] Location: [facility] (R) Specimen (Source) Anatomical Collection Method Collection Time Re ceived Time Location / / Volume Laterality 06/05/2009 06/06/2009 11:0 7 AM CDT Fernanda Fernandez MD LABORATORY Performing Organization Address City/State/ZIP Code Phon e Number [facility] documented in this encounter Visit Diagnoses Diagnosis Routine general medical examination at a health care facility - Primary Unspecified cardiovascular disease Osteoporosis, unspecified 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 Unspecified hereditary and idiopathic pe ripheral neuropathy Screening for malignant neoplasm of the cervix PERS HX OF BREAST MALIGNANCY Personal history of malignant neoplasm o f breast Acne Other acne Gastritis Unspecified gastritis and gastroduodenit is without mention of hemorrhage Hyperlipidemia LDL goal <100 Other and unspecified hyperlipidemia Vitamin D deficiencies Unspecified vitamin D deficiency Type 2 diabetes, HbA1c goal < 7% (H) Type II or unspecified type diabetes aubrey litus without mention of complication, not stated as uncontrolled documented in this encounter Care Teams Home Aid Relationship Specialty Start Date End Date Fernanda Fernandez MD PCP - General 04/16/01 05/23/21 documented as of this encounter
--- OUTSIDE RECORDS SUMMARY | 2021-12-25 14:10 | XMS_ITS | Encounter Summary ---
:1945 Author Organization [facility] Address [address] [place] [address] Care Team Providers Name Role Phone Tiffany Leonard MD Primary Care Provider [phone] Encounter Details Date Type Department Care Team Description 2006 Results Only [facility] [address] [place], [place] [address] (Wo rk) Social History Tobacco Use [...] Procedure Name Priority Date/Time Associated Comments Diagnosis C MYOCARDIAL IMAGE Routine 2006 11:47 AM Re sults for this MULTPLE,SPECT CDT procedure are in the results section. HC CARDIAC STRESS Routine 2006 11:44 AM Res ults for this TEST, TRACING ONLY CDT procedure are in the results section. documented in this encounter Results MYOCARDIAL IMAGE MULTPLE,SPECT (2006 11:47 AM CDT) Anatomical Region Laterality Modality Other Specimen (Source) Anatomical Collection Method Collection Time Re ceived Time Location / / Volume Laterality 2006 11:47 AM CDT Impressions 10/07/2006 3:24 PM CDT ORLIN NUNEZ ?? GATED EXERCISE MYOCARDIAL PERFUSION SCIN TIGRAPHY Done on 2006. ??Orlin Nunez i s a 61-year-old female. ??: ?? 1945. INDICATION: ??Assessment of myocardial p erfusion with a history of coronary artery disease, status post melvin cardial infarction and PTCA, hypertension and hypercholesterolemia. ? ?Indication for exercise testing was chest pain. IMPRESSIONS: I. ??Exercise Test ?? 1. ??The patient exercised to an adequat e cardiac workload with adequate functional aerobic capacity dem onstrated. 2. ??The patient experienced target hear t rate fatigue during the test. 3. ??ECG report done under separate cove r. ?? II. ??Myocardial Perfusion Scintigraphy 1. ??Myocardial perfusion using single isotope technique demonstrated a small to moderate-sized relatively fix ed anterior apical defect, rest greater than stress, most likely co nsistent with breast attenuation artifact, although a slight nontransmural infarct without ischemia cannot be excluded, especially with history of previous WA and PTCA. ??No significant ischemia or o ther infarct noted. 2. ??Gating demonstrated normal sized l eft ventricle with vigorous contractility and no significant regiona l wall motion abnormality. 3. ??The ejection fraction was 68%. ?? RESTING TOMOGRAPHY: ??Following the inje ction of 11.4 mCi of technetium-99m tetrofosmin intravenously , gamma camera imaging was performed using 180* SPECT technique. EXERCISE TEST RESULTS: ??The patient exe rcised for 7 minutes 59 seconds according to the Ryder protocol. ??The peak heart rate achieved was 136 which is 85% of the age -predicted maximum heart rate, blank METS. ??Blood pressure at ak exercise was 190/74 giving a rate pressure product of 25,840. ??The test was terminated secondary to target heart rate and fatigue. ECG report done under separate cover. Approximately 90 seconds prior to the te rmination of exercise, the patient was injected with 35.4 mCi of te chnetium-99m tetrofosmin intravenously. ?? Gamma camera imaging w as performed later using 180* SPECT technique. TOMOGRAPHIC RESULTS: ??On the stress nikole ges there is a small mild anterior apical defect. ??On the rest im ages there is a small to moderate-sized moderately severe anterio r apical defect. ??Gated images demonstrated normal sized left ve ntricle with vigorous contractility and no significant regiona l wall motion abnormality. ?? The ejection fraction was 68% with rest, 53% at rest. ??There is motion correction on rest and stress nikole ges with bowel uptake artifact, diaphragm attenuation, and wilfrid ast attenuation artifact present. Travis Araiza MD SPECIAL IMAGING STUDIES CARDIAC STRESS TST,TRACING ONLY (2006 11:44 AM CDT) [facility] Method Time Signature IMAGECAST RADIOLOGY RESULT ORLIN NUNEZ RESULTS ?? STRESS PORTION OF THE EXERCISE NUCLEAR STUDY ?? INDICATION: ??Assess for myocardial perfusion in a patient w ith an history of chest pain. ?? IMPRESSION: ??Resting EKG with sinus rhythm with no ST-T wav e changes. ?? The patient was made to walk on Ryder protocol for 7 minutes and 9 seconds. ??Peak heart rate was 136, which is 85% of the targ et heart rate. ??Resting blood pressure was 138/72 which increased to 190/74 giving a rate pressure product of 2540. ??The Stage Two was held for 2 more minutes to allow for circulation of the radiotracer. ?? The patient was not able to do Stage Three. ??There were no arrh ythmias during exercise. ??At peak exercise upsloping 0.5-1.[address] depressions were noted in the inferior leads, and 1.[address] depressions were in leads V5 and V6 that resolved in early r ecovery. ?? CONCLUSION: 1) ??Borderline positive stress EKG portion of an exercise n uclear study, with an exercise capacity of 7 METS and at 85% of tar get heart rate. 2) ??The patient had no chest pain or any other symptoms dur ing exercise. 3) ??Nuclear medicine will be reported separately. 4) ??No arrhythmias were seen. Specimen (Source) Anatomical Collection Method Collection Time Re ceived Time Location / / Volume Laterality 2006 11:44 AM CDT Travis Araiza MD EKG TECHNICAL Performing Organization Address City/State/ZIP Code Phon e Number RADIOLOGY RESULTS documented in this encounter Visit Diagnoses Not on filedocumented in this encounter Care Teams Sas Programmer Remote Relationship Specialty Start Date End Date Tiffany Leonard MD PCP - General 04/16/01 documented as of this encounter
--- OUTSIDE RECORDS SUMMARY | 2021-12-25 14:10 | XMS_ITS | Encounter Summary ---
:1945 Author Organization [facility] Address [address] [place] [address] Care Team Providers Name Role Phone Tiffany Leonard MD Primary Care Provider [phone] Reason for Visit Reason Comments Diabetes Education Encounter Details Date Type Department Care Team Description 08/20/2009 Office Visit [facility] Shauna Lopes DM w/o Complication CLINIC XX RESIGNED XX Type II, Uncontrolled [place], [place] (Primary Dx) [id number] Social History Tobacco Use Types Packs/Day Years Used Date Smoking Tobacco: Former Cigarettes Quit : 05/14/1988 Alcohol Use Standard Drinks/Week Comments No 0 (1 standard drink = 0.6 oz pure alcoho l) Sex Assigned at Date Recorded Female 05/22/2021 3:03 PM CDT documented as of this encounter Last Filed Vital Signs Vital Sign Reading Time Taken Comments Blood Pressure 128/76 08/20/2009 3:11 PM CDT Pulse - - Temperature - - Respiratory Rate - - Oxygen Saturation - - Inhaled Oxygen Concentration - - Weight 80.8 kg (178 lb 3.2 oz) 08/20/2009 3:11 PM CDT Height - - Body Mass Index 29.43 06/05/2009 9:35 AM CDT documented in this encounter Patient Instructions Patient InstructionsShauna Lopes - 08/20/2009 3:49 PM CDT MY DIABETES TODAY: 1) Goal A1C is under 7.0 Mine is: A1C 7.9 06/05/2009 2) Goal LDL (bad cholesterol) under 100 (measured at least yearly)- I am currently at: LDL 94 06/05/2009 3) Goal blood pressure under 130/80- mine was 128/76 today 4) Take aspirin daily yes 5) No tobacco use ACTION PLAN CHANGES FROM TODAY: Care Plan changes: Eat 3 carbohydrate servings at a meal Get exercise back into your life 30 min/day Fill out food log and mail back to Shauna or bring back to next class Sign up for classes Labs: Follow up: I will follow up with my assistant food service director: At classes documented in this encounter Progress Notes Shauna Lopes - 08/20/2009 4:21 PM CDT SUBJECTIVE: Mayra Quinn presents today for education related to Type 2 diabetes and evaluation of glucose control related to Type 2 diabetes She is accompanied by self Occupation: Shift: Patient is being treated with ASA, oral agents, diet, exercise and SMBG Patient glucose self monitoring as follows: twice (2) daily. Patient concerns: is concerned about what to eat Had gotten used to eating for her heart and now sheneeds to change. LAB RESULTS: Glucose monitoring results: am glucose- 111-124 and Supper postprandial glucose- 107-126 Today afterlunch she was 133. A1C 7.9 06/05/2009 HDL 27 06/05/2009 LDL 94 06/05/2009 GLC 145 06/05/2009 VITALS: BP 128/76 Wt 178 lb 3.2 oz (80.831 kg) History Tobacco Use ??? Quit ??? Quit date: 05/14/1988 Today's Blood Glucose result is 133 on Loree meter. Medications reviewed & updated today. EXERCISE: moderate regular exercise program which includes walking 3 miles a day again with her . She had quit walking due to the neuropathy and plantar fascitis. But has started again The Neurontin helpsbut it does wear off. NUTRITION: Patient currently eats 3 meals 0-2 snacks per day and CHO choices- 2-3 BF, 2-3 Lunch, 3-6 Dinner, 1 Snack SOCIO/ECONOMIC HISTORY: Lives with: spouse Recent family changes/social stressors: none noted Family Medical History: No changes since last visit Language(s) spoken at home: Armenian ROS: Patient experiencing the following diabetes related symptoms: none ASSESSMENT:Overwhelmed but trying to get a handle on it. Very Motivated. DIABETES: Control poor A1C 7.9 06/05/2009 HTN: Control good Last BP: 128/76 HYPERCHOLESTEROLEMIA: Control good LDL 94 06/05/2009 PLAN: Eat 3 carbohydrate servings at a meal Get exercise back into your life 30 min/day Fill out food log and mail back to Shauna or bring back to next class Sign up for classes FOLLOW-UP: Follow up as needed, Note forward to PCP and Patient to schedule class Patient-stated goal written and given to patient. Behavioral goal established with patient Time spent with patient at today's visit was 60 minutes. documented in this encounter Plan of Treatment Not on filedocumented as of this encounter Visit Diagnoses Diagnosis Type II or unspecified type diabetes aubrey litus without mention of complication, uncontrolled - Primary documented in this encounter Care Teams Flatbed Truck Driver Relationship Specialty Start Date End Date Tiffany Leonard MD PCP - General 04/16/01 05/23/21 documented as of this encounter
--- OUTSIDE RECORDS SUMMARY | 2021-12-25 14:10 | XMS_ITS | Encounter Summary ---
:1945 Author Organization [facility] Address [address] [place] [address]. [place] [address] Care Team Providers Name Role Phone Tiffany Leonard MD Primary Care Provider [phone] Reason for Visit Reason Onset Date Comments Imm/Inj 12/18/2008 Requesting pneumovax Encounter Details Date Type Department Care Team Description 12/18/2008 Telephone [facility] Tiffany Leonard Imm/Inj ( Requesting Clinic Darrian Marinelli MD pneumovax) [address] [place] [address] [place] [address] [place], [place] [phone] (Wo rk) [address] [phone] Social History Tobacco Use Types Packs/Day Years Used Date Smoking Tobacco: Former Cigarettes Quit : 05/14/1988 Alcohol Use Standard Drinks/Week Comments No 0 (1 standard drink = 0.6 oz pure alcoho l) Sex Assigned at Date Recorded Female 05/22/2021 3:03 PM CDT documented as of this encounter Miscellaneous Notes Telephone Encounter - Jayla Antoine - 01/09/2009 5:10 PM CST Pt did get pneumovax. GER OPERATOR HELPER Telephone Encounter - Jayla Antoine - 12/18/2008 2:40 PM CDT Pt is requesting Pneumovax. She says she had one at least 20 years ago and that she does have a heart condition. Nurse will order per [facility] protocol. documented in this encounter Plan of Treatment Not on filedocumented as of this encounter Visit Diagnoses Diagnosis ASCVD (arteriosclerotic cardiovascular d isease) - Primary Unspecified cardiovascular disease documented in this encounter Care Teams Radio Adjuster Relationship Specialty Start Date End Date Tiffany Leonard MD PCP - General 04/16/01 05/23/21 documented as of this encounter
--- OUTSIDE RECORDS SUMMARY | 2021-12-25 14:10 | XMS_ITS | Encounter Summary ---
:1945 Author Organization [facility] Address [address] [place] [address]. [place] [address] Care Team Providers Name Role Phone Tiffany Leonard MD Primary Care Provider [phone] Reason for Visit Reason Onset Date Comments Prior Authorization 08/24/2009 prevacid Encounter Details Date Type Department Care Team Description 08/24/2009 Telephone [facility] Tiffany Leonard Prior [facility] Tammy Marinelli MD (prevacid) [address] [address] [place] [address] [phone] Social History Tobacco Use Types Packs/Day Years Used Date Smoking Tobacco: Former Cigarettes Quit : 05/14/1988 Alcohol Use Standard Drinks/Week Comments No 0 (1 standard drink = 0.6 oz pure alcoho l) Sex Assigned at Date Recorded Female 05/22/2021 3:03 PM CDT documented as of this encounter Miscellaneous Notes Telephone Encounter - Rakel Varghese - 08/30/2009 2:19 PM CDT Pt can only remember using Prilosec and it didn't work and [facility] [place] [facility] to bleeding ulcers. Pt states she would be willing to switch to something else because she hasn't seen GI for a couple years and really does not want to go back there. Please advise of alternate med. Rakel Matuseski, RN Telephone Encounter - Rakel Varghese - 08/30/2009 9:47 AM CDT Left message for pt to call back. According to pt chart she has been on Prilosec in 2005. Will ask pt if any others have been tried before and if wishes to pursue prior auth through [facility] at [place]. Rakel Varghese RN Telephone Encounter - Tiffany Leonard - 08/29/2009 3:35 PM CDT Please check to see what else pt has been on . Pt was given current Rx from GI at [facility]; they may be able to get PA through if there is a specific reason they are prescribing current med. Do we know what else she has tried??? Telephone Encounter - Arlene Mistry - 08/29/2009 10:29 AM CDT Form received stating PA for Prevacid has been denied. Do you wish to use an alternate med? Please advise. Arlene Mistry RN Telephone Encounter - Rakel Varghese - 08/24/2009 11:06 AM CDT Prior auth started for pt on prevacid. Form signed by Dr. Leonard and faxed to # [facility] Will await approval or denial. Rakel Varghese RN documented in this encounter Plan of Treatment Not on filedocumented as of this encounter Visit Diagnoses Not on filedocumented in this encounter Care Teams Shaft Repairer Relationship Specialty Start Date End Date Tiffany Leonard MD PCP - General 04/16/0105/23/22 documented as of this encounter
--- OUTSIDE RECORDS SUMMARY | 2021-12-25 14:10 | XMS_ITS | Encounter Summary ---
:1945 Author Organization [facility] Address [address] [place] [address] Care Team Providers Name Role Phone Tiffany Leonard MD Primary Care Provider [phone] Encounter Details Date Type Department Care Team Description 09/27/2006 Historic Results INTERFACED REPORT Myrtle Kent MD [facility] [address] [place], [place] [address] (Wo rk) Social History [...] Name Priority Date/Time Associated Diagnosis Comme nts EKG 12 LEAD Routine 09/27/2006 6:23 AM Results f or this CDT procedure are i n the results section . documented in this encounter Results EKG 12 LEAD (09/27/2006 6:23 AM CDT) Component Value Ref Range Test Analysis Performed Pathologis t Method Time At Signature Ventricular Rate 61 BPM RADIOLOGY RESULTS Atrial Rate 61 BPM RADIOLOGY RESULTS OK Interval 164 ms RADIOLOGY RESULTS QRS Duration 80 ms RADIOLOGY RESULTS QT 412 ms RADIOLOGY RESULTS QTc 414 ms RADIOLOGY RESULTS P Melvin 48 degrees RADIOLOGY RESULTS R AXIS 4 degrees RADIOLOGY RESULTS T Melvin 72 degrees RADIOLOGY RESULTS Interpretation Sinus rhythm RADIOLOGY ECG Normal ECG RESULTS When compared with ECG of 29-AUG-1994 07:05, No significant change was found Specimen Anatomical Collection Method Collection Time Receive d Time (Source) Location / / Volume Laterality 09/27/2006 6:23 AM 7 6:33 CDT AM CDT Preethi Kent MD ECG ORDERABLES Performing Organization Address City/State/ZIP Code Phon e Number RADIOLOGY RESULTS documented in this encounter Visit Diagnoses Not on filedocumented in this encounter Care Teams Strapping Machine Operator Relationship Specialty Start Date End Date Tiffany Leonard MD PCP - General 04/16/01 documented as of this encounter
--- OUTSIDE RECORDS SUMMARY | 2021-12-25 14:10 | XMS_ITS | Encounter Summary ---
:1945 Author Organization [facility] Address [address] [place] [address] Care Team Providers Name Role Phone Fernanda Fernandez MD Primary Care Provider [phone] Reason for Visit Reason Comments Physical Mammo 07-21-07 at [facility] Colonoscopy 08-22-02 normal at [facility]. 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; [place] [address] PERS HX OF BREAST MALIGNANCY; [id number] Shingles Vaccine; Vitamin D Deficiency Social History Tobacco Use Types Packs/Day Years Used Date Smoking Tobacco: Former Cigarettes Quit : 05/14/1988 Alcohol Use Standard Drinks/Week Comments No 0 (1 standard drink = 0.6 oz pure alcoho l) Sex Assigned at Date Recorded Female 05/22/2021 3:03 PM CDT documented as of this encounter Last Filed Vital Signs Vital Sign Reading Time Taken Comments Blood Pressure 122/70 05/24/2008 9:45 AM CDT Pulse 68 05/24/2008 9:45 AM CDT Temperature - - Respiratory Rate 17 05/24/2008 9:45 AM CDT Oxygen Saturation - - Inhaled Oxygen Concentration - - Weight 85.3 kg (188 lb) 05/24/2008 9:45 AM CDT Height 165.7 cm (5' 5.25) 05/24/2008 9:45 AM CDT Body Mass Index 31.05 05/24/2008 9:45 AM CDT documented in this encounter Patient Instructions Patient InstructionsFernanda Fernandez - 05/24/2008 10:38 AM CDT Continue daily calcium (1200-1500mg), vitamin D (800-1000IU), and regular exercise. documented in this encounter Progress Notes Fernanda Fernandez - 07/06/2008 5:14 PM CDT Addended by: FERNANDA FERNANDEZ on: 07/06/2008 5:14:07 PM Modules accepted: Orders Fernanda Fernandez - 05/24/2008 10:19 AM CDT Chief Complaint: physical History of Present Illness: Mayra Quinn is a 62 year old female. who presents for physical exam: no pap . No LMP date recorded. Reason: Hysterectomy.., Last pap: No results found for this basename: pap:1. Dexa: Per [facility], now on Fosamax, Mammo:2008 unilateral due to mastectomy, colon screenin. Family history reviewed: no colon cancer and Breast Cancer self Tetanus Immunization: 2006 Also here to follow up on ASCVD, Lipids, heart disease. Past Medical History Diagnosis Date ??? Mixed Hyperlipidemia 1988 Statin; Pravachol; Low HDL ??? Personal History of Malignant Neoplasm of Breast 1997 Mastectomy and chemotherapy; Recurrence 2001; Chemo and radiation; Tamoxifen, now Arimedex; followed at [facility] ??? Unspecified Cardiovascular Disease 1989 [facility]CA ??? Unspecified Osteoporosis Fosamax Past Surgical History Procedure Date ??? Mastectomy, mod radical (any) 1997 right ??? Hysterectomy, karen 1989 Fibroid ??? Appendectomy 1989 ??? Arthroscopy knee rt/lt right knee ??? Tonsillectomy child luciano ??? Angioplasty 1988 [facility] ??? Hysterectomy, pap no longer indicated Allergies Allergen Reactions ??? Sulfa Drugs Hives ??? Latex Hives and Itching Bandaids and other contact Current outpatient prescriptions Medication Sig ??? ATENOLOL 25 MG OR TABS 1 tablet twice daily ??? PRAVACHOL 20 MG OR TABS 1 TABLET AT BEDTIME ??? NEURONTIN 600 MG OR TABS 1 TABLET AM and 2 in PM ??? PREVACID 30 MG OR CPDR ONE DAILY ??? FOSAMAX 70 MG OR TABS 1 Tablet Weekly ??? ASPIRIN 81 MG OR TABS 1 TABLET DAILY ??? MUCINEX MAXIMUM STRENGTH 1200 MG OR TB12 1 TABLET EVERY 12 HOURS NEEDED History Social History ??? Marital Status: N/A [...] Self Exams Yes breast cancer followed by [facility] Social History Narrative ??? No narrative on file Family History Problem Relation ??? Respiratory Mother copd ??? C.A.D. Father ??? Hypertension Father ??? Cancer Maternal Grandmother unknown etiology ??? Cancer Maternal Grandfather unknown etiology ??? Stroke Paternal Grandfather ??? C.A.D. Brother ??? 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 Lab Test 07/21/07 07/08/06 04/15/06 CHOL 172@ 162@ -- HDL 31@ 30@ -- LDL 103@ 89@ -- TRIG 188@ 213@ -- CHOLHDLRATIO -- -- 6.2* PHYSICAL EXAMINATION: BP 122/70 Pulse 68 Resp 17 Ht 5' 5.25 (1.657 m) Wt 188 lb (85.276 kg) LMP Hysterectomy General appearance: healthy, alert and no distress Skin: Skin color, texture, turgor normal. No rashes or lesions. Head: Normocephalic. No masses, lesions, tenderness or abnormalities Eyes: conjunctivae/corneas clear. PERRL, EOM's intact. Fundi benign Ears: External ears normal. Canals clear. TM's [...] No murmurs, clicks gallops or rub Breasts: previous mastectomy Lymph Nodes: No anterior cervical, posterior cervical, supraclavicular, infraclavicular, axillary, or inguinal adenopathy Abdomen: Abdomen soft, non-tender. BS normal. No masses, organomegaly Pelvic: previous hysterectomy Extremities: Extremities normal. No deformities, edema, or skin discoloration. Musculoskeletal: Spine ROM normal. Muscular strength intact. Peripheral pulses: normal pulses Neuro: Gait normal. Reflexes normal and symmetric. Sensation grossly WNL. ASSESSMENT/PLAN V70.0 Routine General Medical Examination at a Health Care Facility (primary encounter diagnosis) Comment: HEALTH CARE MAINTENANCE Plan: A.M.A. LIPID PANEL, A.M.A. COMPREHENSIVE MET.PANEL, HGB, TSH W/FREE T4 REFLEX, 25 HYDROXYVITAMIN D2 & D3 429.2 Unspecified Cardiovascular Disease Comment: lipids, BP; Goals of therapy reviewed; Risk assessment; continue meds Plan: ATENOLOL 25 MG OR TABS, A.M.A. COMPREHENSIVE MET.PANEL 272.2 Mixed Hyperlipidemia Comment: Goals of therapy reviewed; Risk assessment; continue meds Plan: PRAVACHOL 20 MG OR TABS, A.M.A. LIPID PANEL, A.M.A. COMPREHENSIVE MET.PANEL, TSH W/FREE T4 REFLEX 356.9 Unspecified Hereditary and Idiopathic Peripheral N Comment: previous chemo; 2000 Plan: NEURONTIN 600 MG OR TABS V10.3 PERS HX OF BREAST MALIGNANCY Comment: no recurrence; hx of mastecomy Plan: healthy lifestyle. V05.4N Shingles Vaccine Comment: pt aware of indication >age 65; willing to pay if insurance does not cover Plan: ZOSTER VACC LIVE SUBQ NJX Fernanda Fernandez MD electronically signed 15 minutes in addition to HEALTH CARE MAINTENANCE are spent with patient, over 50% of that time spent providing counselling, discussing and reviewing medical conditions/concerns, meds and potential side effects. documented in this encounter Nursing Notes 05/24/2008 9:45 AM CDT >> MASSIEL OSORIO Wed May 24, 2008 10:01 AM Patient presents with: Physical - Mammo 07-21-07 at [facility] Colonoscopy 08-22-02 normal at [facility]. PT FASTING Imm/Inj - pt would like the Zostivax Initial BP 122/70 Pulse 68 Resp 17 Ht 5' 5.25 (1.657 m) Wt 188 lb (85.276 kg) LMP Hysterectomy Body mass index is 31.05 kg/(m^2). BP completed using cuff size. large. Chitra Osorio LPN documented in this encounter Plan of Treatment Not on filedocumented as of this encounter Procedures Procedure Name Priority Date/Time Associated Diagnosis Comme nts HCL 25 HYDROXYVITAMIN Routine 05/24/2008 11:12 Routine General Results for this D2 & D3 AM CDT Medical Examination procedur e are in at a [facility] Care the results Facility section. HCL HEMOGLOBIN NONLAB Routine 05/24/2008 11:12 Routine General Results for this AM CDT Medical Examination procedur e are in at a Health Care the results Facility section. HCL COMPREHENSIVE Routine 05/24/2008 11:12 Routine General Res ults for this METABOLIC PANEL AM CDT Medical Examination proce dure are in at a [facility] Care the results Facility section. Mixed Hyperlipid emia Unspecified Cardiovascular Disease HCL TSH W/FREE T4 Routine 05/24/2008 11:12 Routine General Res ults for this REFLEX AM CDT Medical Examination procedur e are in at a Health Care the results Facility section. Mixed Hyperlipidemia CL AFF A.M.A. LIPID Routine 05/24/2008 11:12 Routine General R esults for this PANEL AM CDT Medical Examination procedur e are in at a Health Care the results Facility section. Mixed Hyperlipidemia documented in this encounter Results (ABNORMAL) 25 HYDROXYVITAMIN D2 & D3 (05/24/2008 11:12 AM CDT) Component Value Ref Test Analysis Performed At [facility] Range Method Time Signature 25 [place] Vit D2 <5 ug/L [facility] 25 [place] Vit D3 11 ug/L [facility] 25 [place] Vit D <16 30 - 75 [facility] total Season, race, dietary intake, and treatm ent affect the concentration of ug/L [place] 38-piyppsx-Tujfwat D. Values may decrease during ye er months and increase [facility] during summer months. Values less than 30 ug/L may indicate Vitamin D deficiency. (L) Specimen Anatomical Collection Method Collection Time Receive d Time (Source) Location / / Volume Laterality 05/24/2008 11:12 05/24/2008 AM CDT 11:17 AM CDT Fernanda Fernandez MD LABORATORY Performing Organization Address City/State/ZIP Code Phon e Number [facility] [address] [place] [address] [facility] TSH W/FREE T4 REFLEX (05/24/2008 11:12 AM CDT) athologist Signature TSH 1.27 0.4 - 5.0 [place] [facility]L [facility] LAB Specimen Anatomical Collection Method Collection Time Receive d Time (Source) Location / / Volume Laterality 05/24/2008 11:12 05/24/2008 AM CDT 11:17 AM CDT Fernanda Fernandez MD LABORATORY Performing Organization Address City/State/ZIP Code Phon e Number [facility] [address] [place] [address] [facility] HGB (05/24/2008 11:12 AM CDT) athologist Signature Hemoglobin 13.5 11.7 - 15.7 [place] [facility] g/dL CLINIC LAB Specimen Anatomical Collection Method Collection Time Receive d Time (Source) Location / / Volume Laterality 05/24/2008 11:12 05/24/2008 AM CDT 11:17 AM CDT Fernanda Fernandez MD LABORATORY Performing Organization Address City/State/ZIP Code Phon e Number [facility] [address] [place], [place] [address] [address] [facility] (ABNORMAL) A.M.A. COMPREHENSIVE MET.PANEL (05/24/2008 11:12 AM CDT) P athologist Signature Sodium 142 133 - 144 [place] mmol/L [facility] Potassium 4.1 3.4 - 5.3 [place] mmol/L [facility] Chloride 102 94 - 109 [place] mmol/L [facility] Carbon Dioxide 28 20 - 32 [place] mmol/L [facility] Anion Gap 11 6 - 17 [place] mmol/L [facility] Glucose 122 (H) 60 - 99 [place] mg/dL [facility] Urea Nitrogen 13 7 - 30 [place] mg/dL [facility] Creatinine 0.59 0.52 - [place] 1.04 mg/dL [facility] Comment: New IDMS-traceable calibration beginning 07/01/07 GFR Estimate >90 >60 mL/min/1.7m2 [place] E [facility] GFR Estimate If Black >90 >60 mL/min/1.7m2 F [facility] Calcium 9.1 8.5 - 10.4 mg/dL [facility] Bilirubin Total 0.3 0.2 - 1.3 mg/dL [facility] Albumin 3.8 3.3 - 4.9 g/dL [facility] Comment: Reference range changed on 11/01. Protein Total 7.0 6.8 - 8.8 g/dL [place] EA JORGE [facility] Comment: As of 07, reference range reflects plasma specimen type. Alkaline Phosphatase 82 40 - 150 U/L [facility] ALT 19 0 - 50 U/L [facility] AST 23 0 - 45 U/L [facility] CLIN IC LAB Specimen Anatomical Collection Method Collection Time Receive d Time (Source) Location / / Volume Laterality 05/24/2008 11:12 05/24/2008 AM CDT 11:17 AM CDT Fernanda Fernandez MD LABORATORY Performing Organization Address [facility]/ZIP Code Phon e Number [facility] [address] [place] [address] [phone] [facility] (ABNORMAL) A.M.A. LIPID PANEL (05/24/2008 11:12 AM CDT) athologist Signature Cholesterol 170 0 - 200 [facility] mg/dL CLINIC LAB Comment: LDL Cholesterol is the primary guide to therapy: LDL-cholesterol goal in high risk patients is <100 mg/dL and in very high risk patients is <70 mg/dL. The NCEP recommends further evaluation of: patients with cholesterol <200 mg/dL if additional risk factors are present, cholesterol >240 mg/dL, triglycerides >150 mg/dL, or HDL <40 mg/dL. Triglycerides 241 (H) 0 - 150 mg/dL [facility] HDL Cholesterol 27 (L) 50 - 110 mg/dL [facility] LDL Cholesterol Calculated 94 0 - 129 mg/dL [facility] Comment: LDL Cholesterol is the primary guide to therapy: LDL-cholesterol goal in high risk patients is <100 mg/dL and in very high risk patients is <70 mg/dL. VLDL-Cholesterol 48 (H) 0 - 30 mg/dL [facility] Cholesterol/HDL Ratio 6.2 (H) 0.0 - 5.0 [facility] Specimen Anatomical Collection Method Collection Time Receive d Time (Source) Location / / Volume Laterality 05/24/2008 11:12 05/24/2008 AM CDT 11:17 AM CDT Fernanda Fernandez MD LABORATORY Performing Organization Address [facility]/ZIP Code Phon e Number [facility] [address] [place] [address] [phone] [facility] documented in this encounter Visit Diagnoses Diagnosis Routine general medical examination at a health care facility - Primary Unspecified cardiovascular disease Mixed hyperlipidemia 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 Unspecified hereditary and idiopathic pe ripheral neuropathy PERS HX OF BREAST MALIGNANCY Personal history of malignant neoplasm o f breast Shingles vaccine Need for prophylactic vaccination and in oculation against other viral diseases Vitamin D deficiency Unspecified vitamin D deficiency documented in this encounter Care Teams Development Team Lead Relationship Specialty Start Date End Date Fernanda Fernandez MD PCP - General 04/16/01 05/23/21 documented as of this encounter
--- OUTSIDE RECORDS SUMMARY | 2021-12-25 14:10 | XMS_ITS | Encounter Summary ---
:1945 Author Organization [facility] Address [address] [place] [address] Care Team Providers Name Role Phone Tiffany Leonard MD Primary Care Provider [phone] Encounter Details Date Type Department Care Team Description 2006 [facility] MD [address] [facility] [address] [phone] [place] [address] 01 (Wo rk) Social History Tobacco Use [...] Name Priority Date/Time Associated Diagnosis Comme nts LIPID PROFILE Routine 2006 5:25 AM Results for this CDT procedure are i n the results section . documented in this encounter Results (ABNORMAL) Lipid panel (2006 5:25 AM CDT) P athologist Signature Cholesterol 140 0 - 200 [facility] mg/dL Comment: LDL Cholesterol is the primary guide to therapy: LDL-cholesterol goal in high risk patients is <100 mg/dL and in very high risk patients is <70 mg/dL. The NCEP recommends further evaluation of: patients with cholesterol <200 mg/dL if additionalrisk factors are present, cholesterol >240 mg/dL, triglycerides >150 mg/dL, or HDL <40 mg/dL. Triglycerides 261 (H) 0 - 150 mg/dL [facility] HDL Cholesterol 25 (L) 50 - 110 mg/dL [facility] LDL Cholesterol Calculated 64 0 - 129 mg/dL [facility] VLDL-Cholesterol 52 (H) 0 - 30 mg/dL [facility] Cholesterol/HDL Ratio 5.7 (H) 0.0 - 5.0 [facility] Specimen (Source) Anatomical Collection Method Collection Time Re ceived Time Location / / Volume Laterality 2006 5:25 AM 7 CDT Travis Araiza MD LAB - BLOOD ORDERABLES Performing Organization Address City/State/ZIP Code Phon e Number [facility] documented in this encounter Visit Diagnoses Not on filedocumented in this encounter Care Teams Inspector Line Relationship Specialty Start Date End Date Tiffany Leonard MD PCP - General 04/16/01 05/23/21 documented as of this encounter
--- OUTSIDE RECORDS SUMMARY | 2021-12-25 14:10 | XMS_ITS | Encounter Summary ---
:1945 Author Organization [facility] Address [address] [place] [address] Care Team Providers Name Role Phone Tiffany Leonard MD Primary Care Provider [phone] Encounter Details Date Type Department Care Team Description 09/30/2006 Orders Only [facility] Tiffany Leonard OSTEOPORO SIS NOS Clinic Darrian Marinelli MD (Primary Dx) [address] [address] [place] [address] [place], [place] [phone] (Wo rk) [address] [phone] Social History Tobacco Use Types Packs/Day Years [...] Primary documented in this encounter Care Teams Booster Operator Relationship Specialty Start Date End Date Tiffany Leonard MD PCP - General 04/16/01 05/23/21 documented as of this encounter
--- OUTSIDE RECORDS SUMMARY | 2021-12-25 14:10 | XMS_ITS | Encounter Summary ---
:1945 Author Organization [facility] Address [address] [place] [address]. [place] [address] Care Team Providers Name Role Phone Tiffany Leonard MD Primary Care Provider [phone] Reason for Visit Reason Onset Date Comments Refill Request 08/16/2009 test strips and lanc ets Encounter Details Date Type Department Care Team Description 08/16/2009 Refill [facility] Tiffany Leonard R efill Request (test Clinic Darrian BARRIENTOS strips and lancets) [address] [place] [address] [place] [address] [place], [place] [phone] (Wo rk) [address] [phone] Social History Tobacco Use Types Packs/Day Years Used Date Smoking Tobacco: Former Cigarettes Quit : 05/14/1988 Alcohol Use Standard Drinks/Week Comments No 0 (1 standard drink = 0.6 oz pure alcoho l) Sex Assigned at Date Recorded Female 05/22/2021 3:03 PM CDT documented as of this encounter Miscellaneous Notes Telephone Encounter - Karen Morrison - 08/16/2009 9:04 AM CDT Patient called and mail order will not be able to get supplies to her for 10 days and they told her to order local and they would override. Sent as requested to [facility] pharmacy. Giselle Morrison RN documented in this encounter Plan of Treatment Not on filedocumented as of this encounter Visit Diagnoses Diagnosis Type 2 diabetes, HbA1c goal < 7% (H) - P rimary Type II or unspecified type diabetes aubrey litus without mention of complication, not stated as uncontrolled documented in this encounter Care Teams Sound Technician Relationship Specialty Start Date End Date Tiffany Leonard MD PCP - General 04/16/01 05/23/21 documented as of this encounter
--- OUTSIDE RECORDS SUMMARY | 2021-12-25 14:10 | XMS_ITS | Encounter Summary ---
:1945 Author Organization [facility] Address [address] [place] [address]. [place] [address] Care Team Providers Name Role Phone Tiffany Leonard MD Primary Care Provider [phone] Reason for Visit Reason Onset Date Comments Refill Request 04/10/2008 Atenolol Encounter Details Date Type Department Care Team Description 04/10/2008 Refill [facility] Tiffany Leonard R efill Request Clinic Darrian BARRIENTOS (Atenolol) [address] [address] [place], [place] [address] [phone] Social History Tobacco Use Types Packs/Day Years Used Date Smoking Tobacco: Former Cigarettes Quit : 05/14/1988 Alcohol Use Standard Drinks/Week Comments No 0 (1 standard drink = 0.6 oz pure alcoho l) Sex Assigned at Date Recorded Female 05/22/2021 3:03 PM CDT documented as of this encounter Miscellaneous Notes Telephone Encounter - Tiffany Leonard - 04/13/2008 5:49 PM CST Apparently, this was already done, thanks ULAR SAW EDGE FUSER Telephone Encounter - Doron Mayra Houston - 04/10/2008 11:46 AM CST Pt requesting 1 mo of med, had appt 05/11 but it got resched to 05/24 and now will run short. Is ok with her other meds. Please advise. ULAR [employer]W [employer]GE FUSER documented in this encounter Plan of Treatment Not on filedocumented as of this encounter Visit Diagnoses Diagnosis Unspecified cardiovascular disease - Shira mcleod documented in this encounter Care Teams Peer Health Promoter Relationship Specialty Start Date End Date Tiffany Leonard MD PCP - General 04/16/01 05/23/21 documented as of this encounter
--- OUTSIDE RECORDS SUMMARY | 2021-12-25 14:10 | XMS_ITS | Encounter Summary ---
:1945 Author Organization [place] Address [address] [place] [address] Care Team Providers Name Role Phone Tiffany Leonard MD Primary Care Provider [phone] Encounter Details Date Type Department Care Team Description 07/21/2007 Orders Only [facility] Tiffany Leonard DIAGNOSIS NOT YET Clinic Darrian Marinelli MD DEFINED (Primary Dx) [address] [address] [place] [address] [place], [place] [phone] (Wo rk) [address] [phone] Social History Tobacco Use Types Packs/Day Years [...] Name Priority Date/Time Associated Diagnosis Comme nts HC CHEST TWO VIEWS, FRONT/LAT Routine 07/21/2007 DIAGNOSIS N OT YET DEFINED documented in this encounter Results CHEST X-RAY 2 VW (07/21/2007) Anatomical Region Laterality Modality Other Specimen (Source) Anatomical Location Collection Method / Collectio n Time Received Time / Laterality Volume 07/21/2007 Narrative This result has an attachment that is no t available. Tiffany Leonard MD GENERAL IMAGING documented in this encounter Visit Diagnoses Diagnosis DIAGNOSIS NOT YET DEFINED - Primary documented in this encounter Care Teams Sap Integration Architect Relationship Specialty Start Date End Date Tiffany Leonard MD PCP - General 04/16/01 05/23/21 documented as of this encounter
--- OUTSIDE RECORDS SUMMARY | 2021-12-25 14:10 | XMS_ITS | Encounter Summary ---
:1945 Author Organization [facility] Address [address] [place] [address]. [place] [address] Care Team Providers Name Role Phone Tiffany Leonard MD Primary Care Provider [phone] Reason for Visit Reason Onset Date Comments Refill Request 06/28/2008 Encounter Details Date Type Department Care Team Description 06/28/2008 Refill [facility] Tiffany Leonard MD [facility] [place] [address] [place] [address] [place] [address] [phone] Social History Tobacco Use Types Packs/Day Years Used Date Smoking Tobacco: Former Cigarettes Quit : 05/14/1988 Alcohol Use Standard Drinks/Week Comments No 0 (1 standard drink = 0.6 oz pure alcoho l) Sex Assigned at Date Recorded Female 05/22/2021 3:03 PM CDT documented as of this encounter Miscellaneous Notes Telephone Encounter - Mayra Sal - 06/28/2008 11:36 AM CDT Re-faxed Rx for Pravachol to [facility], they didn't receive it when faxed 05/24/08. documented in this encounter Plan of Treatment Not on filedocumented as of this encounter Visit Diagnoses Diagnosis Mixed hyperlipidemia documented in this encounter Care Teams Ambulance Assistant Relationship Specialty Start Date End Date Tiffany Leonard MD PCP - General 04/16/01 05/23/21 documented as of this encounter
--- OUTSIDE RECORDS SUMMARY | 2021-12-25 14:10 | XMS_ITS | Encounter Summary ---
:1945 Author Organization [facility] Address [address] [place] [address] Care Team Providers Name Role Phone Tiffany Leonard MD Primary Care Provider [phone] Encounter Details Date Type Department Care Team Description 09/27/2006 Historic Results [facility] MD Sarabjit [address] [facility] [address] [phone] [place] [phone] (Wo rk) Social History Tobacco Use [...] Name Priority Date/Time Associated Diagnosis Comme nts TROPONIN I Timed 09/27/2006 6:32 PM Results f or this CDT procedure are i n the results section. TROPONIN I Timed 09/27/2006 12:20 PM Results for this CDT procedure are i n the results section. TROPONIN I STAT 09/27/2006 6:25 AM Results f or this CDT procedure are i n the results section. HEMOGRAM AND STAT 09/27/2006 6:25 AM Results f or this PLATELET CDT procedure are i n the results section. MYOGLOBIN STAT 09/27/2006 6:25 AM Results f or this CDT procedure are i n the results section. LIPASE Routine 09/27/2006 6:25 AM Results f or this CDT procedure are i n the results section. HEPATIC FUNCTION Routine 09/27/2006 6:25 AM Resul ts for this PANEL CDT procedure are i n the results section. BASIC METABOLIC STAT 09/27/2006 6:25 AM Result s for this PANEL CDT procedure are i n the results section. documented in this encounter Results Troponin I (09/27/2006 6:32 PM CDT) P athologist Signature Troponin I <0.04 0.00 - 0.40 MISYS ug/L Specimen Anatomical Collection Method Collection Time Receive d Time (Source) Location / / Volume Laterality 09/27/2006 6:32 PM 7 6:25 CDT PM CDT Travis Araiza MD LAB - BLOOD ORDERABLES Performing Organization Address City/[facility] Code Phon e Number MISYS Troponin I (09/27/2006 12:20 PM CDT) P athologist Signature Troponin I <0.04 0.00 - 0.40 MISYS ug/L Specimen Anatomical Collection Method Collection Time Receive d Time (Source) Location / / Volume Laterality 09/27/2006 12:20 09/27/2006 PM CDT 12:25 PM CDT Travis Araiza MD LAB - BLOOD ORDERABLES Performing Organization Address [facility] Code Phon e Number MISYS Troponin I (09/27/2006 6:25 AM CDT) P athologist Signature Troponin I <0.04 0.00 - 0.40 MISYS ug/L Specimen Anatomical Collection Method Collection Time Receive d Time (Source) Location / / Volume Laterality 09/27/2006 6:25 AM 7 6:33 CDT AM CDT Preethi Kent MD LAB - BLOOD ORDERABLES Performing Organization Address [facility] Phon e Number MISYS Myoglobin (09/27/2006 6:25 AM CDT) P athologist Signature Myoglobin 27 <120 ug/L MISYS Specimen Anatomical Collection Method Collection Time Receive d Time (Source) Location / / Volume Laterality 09/27/2006 6:25 AM 7 6:33 CDT AM CDT Preethi Kent MD LAB - BLOOD ORDERABLES Performing Organization Address [facility] Phon e Number MISYS Hemogram and platelet (09/27/2006 6:25 AM CDT) P athologist Signature MCV 86 78 - 100 fl MISYS MCH 30.8 26.5 - 33.0 MISYS pg MCHC 35.9 31.5 - 36.5 MISYS g/dL RDW 12.9 10.0 - 15.0 MISYS % WBC 7.0 4.0 - 11.0 MISYS 10e9/L RBC Count 4.65 3.8 - 5.2 MISYS 10e12/L Hemoglobin 14.3 11.7 - 15.7 MISYS g/dL Hematocrit 39.9 35.0 - 47.0 MISYS % Platelet Count 204 150 - 450 MISYS 10e9/L Specimen Anatomical Collection Method Collection Time Receive d Time (Source) Location / / Volume Laterality 09/27/2006 6:25 AM 7 6:33 CDT AM CDT Preethi Kent MD LAB - BLOOD ORDERABLES Performing Organization Address [facility] Phon e Number MISYS (ABNORMAL) Basic metabolic panel (09/27/2006 6:25 AM CDT) P athologist Signature Sodium 139 133 - 144 MISYS mmol/L Potassium 4.3 3.4 - 5.3 MISYS mmol/L Chloride 105 94 - 109 MISYS mmol/L Carbon Dioxide 25 20 - 32 MISYS mmol/L Glucose 122 (H) 60 - 99 MISYS mg/dL Urea Nitrogen 11 7 - 30 MISYS mg/dL Creatinine 0.64 0.60 - MISYS 1.30 mg/dL GFR Estimate >90 >60 MISYS mL/min/1.7 m2 GFR Estimate If >90 >60 MISYS Black mL/min/1.7 m2 Calcium 9.4 8.5 - 10.4 MISYS mg/dL Anion Gap 9 6 - 17 MISYS mmol/L Specimen Anatomical Collection Method Collection Time Receive d Time (Source) Location / / Volume Laterality 09/27/2006 6:25 AM 7 6:33 CDT AM CDT Preethi Kent MD LAB - BLOOD ORDERABLES Performing Organization Address [facility] Phon e Number MISYS Hepatic panel (09/27/2006 6:25 AM CDT) P athologist Signature AST 41 0 - 45 U/L MISYS Protein Total 7.7 6.0 - 8.2 MISYS g/dL Albumin 4.5 3.2 - 4.5 MISYS g/dL ALT 29 0 - 50 U/L MISYS Alkaline 107 40 - 150 MISYS Phosphatase U/L Bilirubin 0.0 0.0 - 0.3 MISYS Conjugated mg/dL Bilirubin Delta 0.1 0.0 - 0.4 MISYS mg/dL Bilirubin Total 0.6 0.2 - 1.3 MISYS mg/dL Specimen Anatomical Collection Method Collection Time Receive d Time (Source) Location / / Volume Laterality 09/27/2006 6:25 AM 7 7:04 CDT AM CDT Preethi Kent MD LAB - BLOOD ORDERABLES Performing Organization Address [facility] Phon e Number MISYS Lipase (09/27/2006 6:25 AM CDT) athologist Signature Lipase 164 20 - 250 U/L MISYS Specimen Anatomical Collection Method Collection Time Receive d Time (Source) Location / / Volume Laterality 09/27/2006 6:25 AM 7 7:04 CDT AM CDT Preethi Kent MD LAB - BLOOD ORDERABLES Performing Organization Address City/[facility] Phon e Number MISYS documented in this encounter Visit Diagnoses Not on filedocumented in this encounter Care Teams Grain Commodity Manager Relationship Specialty Start Date End Date Tiffany Leonard MD PCP - General 04/16/01 05/23/21 documented as of this encounter
--- OUTSIDE RECORDS SUMMARY | 2021-12-25 14:11 | XMS_ITS | Encounter Summary ---
:1945 Author Organization [facility] Address [address] [place] [address] Care Team Providers Name Role Phone Tiffany Leonard MD Primary Care Provider [phone] Encounter Details Date Type Department Care Team Description 09/27/2006 Results Only [facility] Preethi Kent, [facility] Results [facility] [address] [place], [place] [phone] (Wo rk) Social History [...] Procedure Name Priority Date/Time Associated Diagnosis Comme [facility] CHEST ONE VIEW Routine 09/27/2006 6:40 AM Resu lts for this CDT procedure are i n the results section. documented in this encounter Results CHEST X-RAY 1 VW (09/27/2006 6:40 AM CDT) Anatomical Region Laterality Modality Other Specimen (Source) Anatomical Collection Method Collection Time Re ceived Time Location / / Volume Laterality 09/27/2006 6:40 AM CDT Impressions 09/27/2006 10:48 AM CDT HISTORY: ?Chest pain. FINDINGS: ?There is moderate relativ e elevation of the the right hemidiaphragm. The chest is otherwise un remarkable. Preethi Kent MD GENERAL IMAGING documented in this encounter Visit Diagnoses Not on filedocumented in this encounter Care Teams Single Fold Machine Operator Relationship Specialty Start Date End Date Tiffany Leonard MD PCP - General 04/16/01 05/23/21 documented as of this encounter
--- OUTSIDE RECORDS SUMMARY | 2021-12-25 14:11 | XMS_ITS | Encounter Summary ---
:1945 Author Organization [facility] Address [address] [place] [address]. [place] [address] Care Team Providers Name Role Phone Tiffany Leonard MD Primary Care Provider [phone] Encounter Details Date Type Department Care Team Description 06/21/2003 Operative Report Misael Horton MD (Manager Installation) [facility] [id number] [place] [id number] (Wo rk) Social History Tobacco Use Types Packs/Day Years Used Date Smoking Tobacco: Never Assessed Sex Assigned at Date Recorded Female 05/22/2021 3:03 PM CDT documented as of this encounter Miscellaneous Notes Op Note - Misael Horton - 06/21/2003 12:00 AM CDT : 45 1st ASS'T: 2nd ASS'T: PRE-OPERATIVE DIAGNOSIS: Medial meniscus tear, right knee. POST-OPERATIVE DIAGNOSIS: Medial meniscus tear, right knee. OPERATION: Arthroscopy, right knee, with arthroscopic total medial meniscectomy. The patient was taken to the operating room where she was given general anesthesia with placement of an LMA. She was given a gram of Ancef IV. The right leg was scrubbed and prepped with Betadine and draped sterilely in the usual fashion with latex precautions with the proximal thigh pneumatic tourniquet placed, the arthroscopic leg smith positioned, the foot of the table flexed 90 degrees, and the arthroscopic bolster underneath the contralateral left leg. The right leg was exsanguinated with an Esmarch bandage and the tourniquet was inflated to 350 mmHg. The arthroscope was introduced through the anterolateral portal and the instruments through the anteromedial portal and inflow through the superomedial portal. Examination of the patellofemoral joint was normal. Examination of the medial gutter showed some local synovial prominence without true plica formation. 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 The intercondylar notch exam shows normal ACL. The lateral compartment exam was normal including lateral meniscus and articular surfaces. The medial meniscus was completely resected, alternating curved and straight biting punch rongeurs with a 4.2-mm straight Cuda shaver. Complete meniscal resection was carried out down to capsule. Limited chondral debridement was carried out for the medial femoral condyle to remove any unstable articular fronds, but very minimal was required. The knee was irrigated and the meniscal fragments were removed. The area of medial synovial hypertrophy was also resected to avoid future impingement. Photographic documentation was performed at all stages. The instruments were then withdrawn and the portals were closed with interrupted 4-0 Prolene simple sutures. The knee was then instilled with 30 cc of 0.5% Marcaine with epinephrine for postsurgical pain relief. A bulky padded Nikolas dressing was applied, and the tourniquet was deflated after a total time of 34 minutes with return of normal color and capillary filling of the foot. The patient tolerated the procedure well and left the operating room in good condition. No blood loss, drains, or complications. [id number] MISAEL HORTON MD MT: Document: [id number] [place], [place] Name: ORLIN NUNEZ NATIVIDADN: SDS DSC: 06/21/2003 [place], [place] Name: MR#: : Procedure Date: ORLIN NUNEZ [id number] 1945 06/21/2003 Doctor: MISAEL HORTON MD OPERATIVE REPORT Page 1 of 2 documented in this encounter Plan of Treatment Not on filedocumented as of this encounter Visit Diagnoses Not on filedocumented in this encounter Care Teams Communications Professional Relationship Specialty Start Date End Date Tiffany Leonard MD PCP - General 04/16/01 05/23/21 documented as of this encounter
--- OUTSIDE RECORDS SUMMARY | 2021-12-25 14:11 | XMS_ITS | Encounter Summary ---
:1945 Author Organization [facility] Address [address] [place] [address] Care Team Providers Name Role Phone Fernanda Fernandez MD Primary Care Provider [phone] Reason for Visit Reason Comments Physical PT FASTING Mammo followed [facility] oncology. Encounter Details Date Type Department Care Team Description 04/15/2006 Office Visit [facility] Fernanda Fernandez ROUTINE M EDICAL EXAM (Primary Dx); Clinic Darrian Marinelli MD IDIO PERIPH NEURPTHY NOS; [address] [address] [address] A VE MIXED HYPERLIPIDEMIA; [place] [address] [address] [place], [place] [phone] (Wo rk) [id number] [phone] Social History Tobacco Use Types Packs/Day Years Used Date Smoking Tobacco: Former Cigarettes Quit : 05/14/1988 Alcohol Use Standard Drinks/Week Comments No 0 (1 standard drink = 0.6 oz pure alcoho l) Sex Assigned at Date Recorded Female 05/22/2021 3:03 PM CDT documented as of this encounter Last Filed Vital Signs Vital Sign Reading Time Taken Comments Blood Pressure 124/68 04/15/2006 10:45 AM COMMUNITY EDUCATOR Pulse 76 04/15/2006 10:45 AM COMMUNITY EDUCATOR Temperature - - Respiratory Rate 18 04/15/2006 10:45 AM COMMUNITY EDUCATOR Oxygen Saturation - - Inhaled Oxygen Concentration - - Weight 83.9 kg (185 lb) 04/15/2006 10:45 AM COMMUNITY EDUCATOR Height 165.7 cm (5' 5.25) 04/15/2006 10:45 AM COMMUNITY EDUCATOR Body Mass Index 30.55 04/15/2006 10:45 AM COMMUNITY EDUCATOR documented in this encounter Progress Notes Fernanda Fernandez - 04/15/2006 12:33 PM COMMUNITY EDUCATOR Addended by: FERNANDA FERNANDEZ on: 04/15/2006 12:33:48 PM Modules accepted: Orders UNITY EDUCATOR Shante Osorio - 04/15/2006 11:48 AM COMMUNITY EDUCATOR Addended by: SHANTE OSORIO on: 04/15/2006 11:48:50 AM Modules accepted: Orders, Medications UNITY EDUCATOR Malu Monson - 04/15/2006 11:43 AM COMMUNITY EDUCATOR Addended by: MALU MONSON on: 04/15/2006 11:43:30 AM Modules accepted: Orders UNITY EDUCATOR Fernanda Fernandez - 04/15/2006 11:14 AM CST Chief Complaint: physical History of Present Illness: Mayra Quinn is a 60 year old female who presents for physical exam. No LMP date recorded. Reason: Hysterectomy., Dexa: 2006- Osteoporosis; on Fosamax, Mammo: [facility], colon screenin per pt. There is no family hx of Breast or Colon Cancer. Tetanus: 2006 Also here to follow up on Cholesterol, HTN and heart disease. Past Medical History Diagnosis Date ??? MIXED HYPERLIPIDEMIA Statin; Pravachol; Low HDL ??? PERS HX OF BREAST MALIGNANCY 1998 Mastectomy and chemotherapy; Recurrence 2001; Chemo and radiation; Tamoxifen, now Arimedex; followed at [facility] ??? ASCVD 1989 PTCA ??? OSTEOPOROSIS NOS Fosamax Past Surgical History Procedure Date ??? Mastectomy, mod radical (any) ??? Hysterectomy, karen 1989 ??? Appendectomy 1989 ??? Arthroscopy knee rt/lt right knee ??? Tonsillectomy child luciano ??? Angioplasty 1988 [facility] Allergies Allergen Reactions ??? Sulfa Drugs Hives ??? Latex Hives and Itching Bandaids and other contact Current outpatient prescriptions Medication Sig ??? NEURONTIN 300 MG OR CAPS Titrate to 300mg In AM and 600mg at night ??? FOSAMAX 70 MG OR TABS 1 Tablet Weekly ??? ARIMIDEX 1 MG OR TABS 1 TABLET DAILY ??? PRAVACHOL 20 MG OR TABS 1 TABLET AT BEDTIME ??? ATENOLOL 25 MG OR TABS 1 TABLET DAILY ??? ASPIRIN 81 MG OR TABS 1 TABLET DAILY ??? GLUCOSAMINE CHONDROITIN COMPLX OR CAPS 1 daily ??? OMEPRAZOLE 40 MG OR CPDR ONE DAILY History Social History ??? Marital Status: [...] per day ??? Exercise Yes walk regularly Social History Narrative ??? No narrative on file Family History Problem Relation ??? Respiratory Mother copd ??? C.A.D. Father ??? Hypertension Father ??? Cancer Maternal Grandmother unknown etiology ??? Cancer Maternal Grandfather unknown etiology ??? Stroke Paternal Grandfather ??? C.A.D. Brother ??? Heart Brother from a heart attack Review Of Systems Skin: negative Eyes: negative Ears/Nose/Throat: drainage, some cough Respiratory: no shortness of breath Cardiovascular: Denies chest pain, shortness of breath; Past PTCA, no further cardiac concerns; BP well controlled. Gastrointestinal: Colonoscopy up to date per pt; previously had one done with Dr. Isidra sheppard most recently at [facility].; cough- heartburn related; now on PPI. Genitourinary: Denies UTI; some incontinence PROGRAM ADMINISTRATOR: Right mastectomy, LEft CBEa nd mammogram done at [place] Musculoskeletal: negative Neurologic: neuropathy- better with Neurontin, wondering about increasing dose Psychiatric: negative Hematologic/Lymphatic/Immunologic: negative Endocrine: Lipids due; fasting PHYSICAL EXAMINATION: BP 124/68 Pulse 76 Resp 18 Ht 5' 5.25 (1.66m) Wt 185 lbs (83.9kg) LMP Hysterectomy General appearance: healthy, alert and [...] No murmurs, clicks gallops or rub Breasts: deferred Lymph Nodes: No anterior cervical, posterior cervical, supraclavicular, infraclavicular, axillary, or inguinal adenopathy Abdomen: Abdomen soft, non-tender. BS normal. No masses, organomegaly Pelvic: Deferred Extremities: Extremities normal. No deformities, edema, or skin discoloration. Musculoskeletal: Spine ROM normal. Muscular strength intact. Peripheral pulses: Normal pulses Neuro: Gait normal. Reflexes normal and symmetric. Sensation grossly WNL. ASSESSMENT/PLAN V70.0 ROUTINE MEDICAL EXAM (primary encounter diagnosis) Note: HEALTH CARE MAINTENANCE up todate; several tests done through [facility]; she will send results when available; next there in July 2006. Discussed what tests Plan: A.M.A. LIPID PANEL, A.M.A. COMPREHENSIVE MET.PANEL, HGB, TSH W/FREE T4 REFLEX, UA MICRO IF POSITIVE 356.9 IDIO PERIPH NEURPTHY NOS Note: Feet; subjectively better with meds Plan: NEURONTIN 300 MG OR CAPS Could increase dose as discussed depending on symptoms. 272.2 MIXED HYPERLIPIDEMIA Note: Risk assessment; Goal LDL<100; Goals of therapy reviewed; Risk assessment; continue meds Plan: PRAVACHOL 20 MG OR TABS, A.M.A. LIPID PANEL, A.M.A. COMPREHENSIVE MET.PANEL, TSH W/FREE T4 REFLEX, UA MICRO IF POSITIVE, MICROALBUMIN (INC URINE CREAT) 429.2 ASCVD Note: Stable; Goals of therapy reviewed; Risk assessment; continue meds Plan: ATENOLOL 25 MG OR TABS, A.M.A. COMPREHENSIVE MET.PANEL Fernanda Fernandez MD electronically signed 15 minutes in addition to HEALTH CARE MAINTENANCE are spent with patient, over 50% of that time spent providing counselling, discussing and reviewing medical conditions/concerns, meds and potential side effects. UNITY EDUCATOR documented in this encounter Nursing Notes 04/15/2006 10:45 AM CST >> SHANTE OSORIO 04/15/2006 10:56 am Mayra Quinn presents for a physical. Initial BP 124/68 Pulse 76 Resp 18 Ht 5' 5.25 (1.66m) Wt 185 lbs (83.9kg) LMP Hysterectomy Body mass index is 30.56 kg/(m^2).. BP completed using cuff size: large documented in this encounter Plan of Treatment Not on filedocumented as of this encounter Procedures Procedure Name Priority Date/Time Associated Diagnosis Comme nts CREATININE, URINE Routine 04/15/2006 11:38 Mixed Hyperlipidemi a Results for this AM COMMUNITY EDUCATOR procedure are i n the results section. HCL UA MICRO IF Routine 04/15/2006 11:38 Routine Medical Exam Results for this POSITIVE AM COMMUNITY EDUCATOR Mixed Hyperlipidemia procedu re are in the results section. HCL ALBUMIN URINE Routine 04/15/2006 11:38 Mixed Hyperlipidemi a Results for this (INC CREAT) AM COMMUNITY EDUCATOR procedure are i n the results section. CL AFF MICRO Routine 04/15/2006 11:38 Results for this EXAM-URINE AM COMMUNITY EDUCATOR procedure are i n the results section. HCL HEMOGLOBIN NONLAB Routine 04/15/2006 11:33 Routine Medical Exam Results for this AM COMMUNITY EDUCATOR procedure are i n the results section. HCL COMPREHENSIVE Routine 04/15/2006 11:33 Routine Medic al Exam Results for this METABOLIC PANEL AM COMMUNITY EDUCATOR Mixed Hyperlipid emia procedure are in [facility] the results section. HCL TSH W/FREE T4 Routine 04/15/2006 11:33 Routine Medic al Exam Results for this REFLEX AM COMMUNITY EDUCATOR Mixed Hyperlipidemia procedu re are in the results section. CL AFF A.M.A. LIPID Routine 04/15/2006 11:33 Routine Med ical Exam Results for this PANEL AM COMMUNITY EDUCATOR Mixed Hyperlipidemia procedu re are in the results section. documented in this encounter Results (ABNORMAL) MICRO EXAM-URINE (04/15/2006 11:38 AM COMMUNITY EDUCATOR) athologist Signature WBC Urine O - 2 0 - 2 /HPF [facility] RBC Urine O - 2 0 - 2 /HPF [facility] Squamous EPI Few FEW /LPF [facility] Bacteria Urine Few (A) NEG /HPF [facility] Specimen Anatomical Collection Method Collection Time Receive d Time (Source) Location / / Volume Laterality 04/15/2006 11:38 04/15/2006 AM COMMUNITY EDUCATOR 11:43 AM COMMUNITY EDUCATOR Fernanda Fernandez MD LABORATORY Performing Organization Address City/State/ZIP Code Phon e Number [facility] [address] [place], [place] [address] [address] [facility] CREATININE, URINE (04/15/2006 11:38 AM COMMUNITY EDUCATOR) athologist Signature Creatinine 118 mg/dL [facility] Urine [place] [facility] Specimen Anatomical Collection Method Collection Time Receive d Time (Source) Location / / Volume Laterality 04/15/2006 11:38 04/15/2006 AM COMMUNITY EDUCATOR 11:43 AM COMMUNITY EDUCATOR Fernanda Fernandez MD LABORATORY Performing Organization Address City/State/ZIP Code Phon e Number [address] LABS (ABNORMAL) MICROALBUMIN (INC URINE CREAT) (04/15/2006 11:38 AM COMMUNITY EDUCATOR) [facility] gist Method Time Signature Albumin Urine 50 mg/L [facility] mg/L [facility] Albumin Urine 42.63 (H) 0 - 20 [facility] mg/g Cr mg/g Cr [facility]S Specimen Anatomical Collection Method Collection Time Receive d Time (Source) Location / / Volume Laterality 04/15/2006 11:38 04/15/2006 AM COMMUNITY EDUCATOR 11:43 AM COMMUNITY EDUCATOR Fernanda Fernandez MD LABORATORY Performing Organization Address City/State/ZIP Code Phon e Number [address] LABS (ABNORMAL) UA MICRO IF POSITIVE (04/15/2006 11:38 AM COMMUNITY EDUCATOR) Patholo gist Method Time Signature Color Urine Yellow [facility] Appearance Urine Clear [facility] Glucose Urine Negative NEG mg/dL [facility] Bilirubin Urine Negative NEG [facility] Ketones Urine Negative NEG mg/dL [facility] Specific [place] 1.020 1.003 - [place] Urine 1.035 [facility] Blood Urine Trace (A) NEG [facility] pH Urine 7.5 (H) 5.0 - 7.0 [place] pH [facility] Protein Albumin Trace (A) NEG mg/dL [place] Urine [facility] Urobilinogen 0.2 0.2 - 1.0 [place] Urine EU/dL [facility] Nitrite Urine Negative NEG [facility] Leukocyte Trace (A) NEG [place] Esterase Urine [facility] Source [facility] Specimen Anatomical Collection Method Collection Time Receive d Time (Source) Location / / Volume Laterality 04/15/2006 11:38 04/15/2006 AM COMMUNITY EDUCATOR 11:43 AM COMMUNITY EDUCATOR Fernanda Fernandez MD LABORATORY Performing Organization Address City/State/ZIP Code Phon e Number [facility] [address] [place], [place] [address] [address] [facility] TSH W/FREE T4 REFLEX (04/15/2006 11:33 AM COMMUNITY EDUCATOR) P athologist Signature TSH 1.27 0.4 - 5.0 [place] [facility] mU/L [facility] Specimen Anatomical Collection Method Collection Time Receive d Time (Source) Location / / Volume Laterality 04/15/2006 11:33 04/15/2006 AM COMMUNITY EDUCATOR 11:38 AM COMMUNITY EDUCATOR Fernanda Fernandez MD LABORATORY Performing Organization Address City/State/ZIP Code Phon e Number [facility] [address] [place] [address] [facility] HGB (04/15/2006 11:33 AM COMMUNITY EDUCATOR) P athologist Signature Hemoglobin 14.4 11.7 - 15.7 [facility] g/dL [facility] Specimen Anatomical Collection Method Collection Time Receive d Time (Source) Location / / Volume Laterality 04/15/2006 11:33 04/15/2006 AM COMMUNITY EDUCATOR 11:38 AM COMMUNITY EDUCATOR Fernanda Fernandez MD LABORATORY Performing Organization Address City/State/ZIP Code Phon e Number [facility] [address] [place], [place] [address] [address] [facility] A.M.A. COMPREHENSIVE MET.PANEL (04/15/2006 11:33 AM COMMUNITY EDUCATOR) athologist Signature Sodium 141 133 - 144 [place] mmol/L [facility] Potassium 4.1 3.4 - 5.3 [place] [facility] mmol/L [facility] Chloride 102 94 - 109 [place] [facility] mmol/L [facility] Carbon Dioxide 26 20 - 32 [place] mmol/L [facility] Anion Gap 13 6 - 17 [place] mmol/L [facility] Glucose 110 60 - 110 [place] mg/dL [facility] Urea Nitrogen 18 7 - 30 [place] [facility] mg/dL [facility] Creatinine 0.70 0.60 - [place] 1.30 mg/dL [facility] GFR Estimate >90 >60 [place] [facility] mL/min/1.7 [facility] m2 GFR Estimate If >90 >60 [place] [facility] Black mL/min/1.7 [facility] m2 Calcium 9.6 8.5 - 10.4 [place] [facility] mg/dL [facility] Bilirubin Total 0.3 0.2 - 1.3 [place] [facility] mg/dL [facility] Albumin 4.3 3.2 - 4.5 [place] [facility] g/dL [facility] Protein Total 7.5 6.0 - 8.2 [place] [facility] g/dL [facility] LAB Alkaline 96 40 - 150 [facility] Phosphatase U/L CL[facility]IC LAB ALT 33 0 - 50 U/L [facility] AST 24 0 - 45 U/L [facility] Specimen Anatomical Collection Method Collection Time Receive d Time (Source) Location / / Volume Laterality 04/15/2006 11:33 04/15/2006 AM COMMUNITY EDUCATOR 11:38 AM COMMUNITY EDUCATOR Fernanda Fernandez MD LABORATORY Performing Organization Address City/State/ZIP Code Phon e Number [facility] [address] [place] [address] [facility] (ABNORMAL) A.M.A. LIPID PANEL (04/15/2006 11:33 AM COMMUNITY EDUCATOR) athologist Signature Cholesterol 163 0 - 200 [facility] mg/dL CLINIC LAB Comment: LDL Cholesterol is the primary guide to therapy: LDL-cholesterol goal in high risk patients is <100 mg/dL and in very high risk patients is <70 mg/dL. The NCEP recommends further evaluation of: patients with cholesterol <200 mg/dL if additional risk factors are present, cholesterol >240 mg/dL, triglycerides >150 mg/dL, or HDL <40 mg/dL. Triglycerides 248 (H) 0 - 150 mg/dL [facility] HDL Cholesterol 26 (L) 50 - 110 mg/dL [facility] LDL Cholesterol Calculated 88 0 - 129 mg/dL [facility] Comment: LDL Cholesterol is the primary guide to therapy: LDL-cholesterol goal in high risk patients is <100 mg/dL and in very high risk patients is <70 mg/dL. VLDL-Cholesterol 50 (H) 0 - 30 mg/dL [facility] Cholesterol/HDL Ratio 6.2 (H) 0.0 - 5.0 [facility] Specimen Anatomical Collection Method Collection Time Receive d Time (Source) Location / / Volume Laterality 04/15/2006 11:33 04/15/2006 AM COMMUNITY EDUCATOR 11:38 AM COMMUNITY EDUCATOR Fernanda Fernandez MD LABORATORY Performing Organization Address City/State/ZIP Code Phon e Number [address] [address] [facility] documented in this encounter Visit Diagnoses Diagnosis Routine general medical examination at a health care facility - Primary Unspecified hereditary and idiopathic pe ripheral neuropathy Mixed hyperlipidemia Unspecified cardiovascular disease documented in this encounter Care Teams Real Estate Office Supervisor Relationship Specialty Start Date End Date Fernanda Fernandez MD PCP - General 04/16/01 05/23/21 documented as of this encounter
--- OUTSIDE RECORDS SUMMARY | 2021-12-25 14:11 | XMS_ITS | Encounter Summary ---
:1945 Author Organization [facility] Address [address] [place] [address] Care Team Providers Name Role Phone Tiffany Leonard MD Primary Care Provider [phone] Encounter Details Date Type Department Care Team Description 06/21/2003 Admission H&P Mj Hamlin MD (Spool Cleaner Hand) [place] [address] Social History Tobacco Use Types Packs/Day Years Used Date Smoking Tobacco: Never Assessed Sex Assigned at Date Recorded Female 05/22/2021 3:03 PM CDT documented as of this encounter H&P Notes Mj Hamlin - 06/20/2003 12:00 AM CDT : [birth year] This 57-year-old white female has been bothered with some pain in her right knee for approximately the last year. She saw an orthopedist in 11/02, had an MRI which she describes as positive. She delayed any surgery she felt she could put up with her discomfort. Her right knee pain has persisted. She has a feeling of instability in her right knee. There has never been locking but this combination of symptoms have let her to seek surgical correction. PAST MEDICAL HISTORY: 1. Breast cancer diagnosed in 1997 with a mastectomy on the right side. She experienced a recurrence in 2001 with axillary node involvement on her right side. She is presently on Arimidex as her chemotherapy. 2. Coronary artery disease with myocardial infarction in 1988 when she underwent an angioplasty. Her blood pressure has been high in the past as has been her cholesterol. She is presently taking medication. MEDICATIONS: Atenolol 25 mg 2 x a day, 81 mg aspirin, Arimidex, Naprosyn 1000 mg daily. Pravachol questionable dose daily, Fosamax 70 mg one time a week. ALLERGIES: SULFA CAUSES A RASH, LIPITOR MYALGIAS AND LATEX QUESTIONABLE RASH. PAST SURGICAL PROCEDURES: Right mastectomy and right axillary node dissection two years later. Angioplasty and bilateral bunions. Childbirth x 4 in the past. REVIEW OF SYSTEMS: Her weight has been stable. HEENT: She denies frequent headaches, hearing and vision are normal. No chronic sinus problems. Teeth are in good condition. CARDIOVASCULAR/RESPIRATORY: No chest aches or pains. No rapid or irregular heart rate, no chronic cough, no shortness of breath with exertion. GASTROINTESTINAL: Food is well tolerated. Bowel habits are normal. No blood in the stool, no abdominal pain. GENITOURINARY: No nocturia, no dysuria. NEUROMUSCULAR: Strength she feels is diminished. PHYSICAL EXAM: Revealed an alert, well nourished, well developed white female in no distress. Height 65 1/2, weight 186 lbs., blood pressure 142/76, temperature 98.8, pulse 68 and regular. HEENT: Pupils equal and reactive. Extraocular muscles intact. Conjunctiva normal. Tympanic membranes negative. Nose midline. Mouth: Teeth in good condition. Posterior pharynx negative. NECK supple without palpable cervical adenopathy or thyroid irregularities. CHEST: Lungs clear to auscultation. HEART is regular without murmur. No apparent cardiomegaly. Right breast absent. ABDOMEN soft, flat and easily palpable without palpable liver, kidney or spleen or other abdominal masses. GENITORECTAL: Deferred. Upper extremities negative. Lower extremities definite swelling present of her right knee. Complete findings are deferred to the operating surgeon. IMPRESSION: 1. Internal derangement right knee. SECONDARY DIAGNOSIS: 1. Breast cancer with metastasis stable. 2. Coronary artery disease, past myocardial infarction stable. LABORATORY FINDINGS: Hemoglobin 13.3 grams percent, WBC 8,000 with 66 neutrophils, 26 lymphs, 4 monos, 2 eosinophils, 1 basophil. Serum potassium was 3.8. Incidentally serum cholesterol 194, triglycerides 511 with a high density of 17 and a low density of 75 though this calculation is not valid in light of her triglycerides. Electrocardiogram showed a sinus bradycardia and no evidence of injury ischemia and a chest x-ray showed clear lung albarran, no cardiomegaly. The patient is a good surgical risk. [id number] VIOLET HAMLIN MD MT: Document: [id number] [place], [place] Name: ORLIN NUNEZ HISTORY AND PHYSCIAL Page 2 of 2 LCN: [email or web address] DSC: [place], [place] Name: MR#: : Admit Date: ORLIN NUNEZ [id number] 1945 06/21/2003 Doctor: jM HAMLIN MD HISTORY AND PHYSICAL Page 1 of 2 documented in this encounter Plan of Treatment Not on filedocumented as of this encounter Visit Diagnoses Not on filedocumented in this encounter Care Teams Tubular Products Fabricator Relationship Specialty Start Date End Date Tiffany Leonard MD PCP - General 04/16/01 05/23/21 documented as of this encounter
--- OUTSIDE RECORDS SUMMARY | 2021-12-25 14:11 | XMS_ITS | Encounter Summary ---
:1945 Author Organization [facility] Address [address] [place] [address] Care Team Providers Name Role Phone Tiffany Leonard MD Primary Care Provider [phone] Encounter Details Date Type Department Care Team Description 07/08/2006 Orders Only [facility] Tiffany Leonard DIAGNOSIS NOT YET Clinic Darrian Marinelli MD DEFINED (Primary Dx) [address] [address] [place] [address] [place], [place] [phone] (Wo rk) [id number] [phone] Social History Tobacco Use Types Packs/Day Years [...] Priority Date/Time Associated Diagnosis Comme nts C LT MAMMOGRAM, ONE BREAST Routine 07/08/2006 DIAGNOSIS NOT YET DEFINED documented in this encounter Results LT MAMMOGRAM, ONE BREAST (07/08/2006) Anatomical Region Laterality Modality Other Specimen (Source) Anatomical Location Collection Method / Collectio n Time Received Time / Laterality Volume 07/08/2006 Narrative This result has an attachment that is no t available. Tiffany Leonard MD SPECIAL IMAGING STUDIES documented in this encounter Visit Diagnoses Diagnosis DIAGNOSIS NOT YET DEFINED - Primary documented in this encounter Care Teams Marketing Instructor Relationship Specialty Start Date End Date Tiffany Leonard MD PCP - General 04/16/01 05/23/21 documented as of this encounter
--- OUTSIDE RECORDS SUMMARY | 2021-12-25 14:11 | XMS_ITS | Encounter Summary ---
:1945 Author Organization [facility] Address [address] [place] [address] Care Team Providers Name Role Phone Tiffany Leonard MD Primary Care Provider [phone] Reason for Referral Specialty Diagnoses / Procedures Referred By Contact [place] [address] [facility] [place] [address] Referral ID Status Reason Start Date Expiration Date Visits Requ ested Visits Authorized HOUSE FREIGHT HANDLER Encounter Details Date Type Department Care Team Description 02/12/[address] [facility] Tiffany Leonard DIAGNOSIS NOT YET Clinic Darrian Marinelli MD DEFINED (Primary Dx) [address] [address] [place] [address] [place], [place] [phone] (Wo rk) [id number] [phone] Social History Tobacco Use Types Packs/Day Years [...] Name Priority Date/Time Associated Diagnosis Comme nts ZZ CONSULT Routine 02/12/2006 DIAGNOSIS NOT YET DEFINED ONCOLOGY/HEMATOLOGY documented in this encounter Results CONSULT ONCOLOGY/HEMATOLOGY (02/12/2006) Specimen (Source) Anatomical Location Collection Method / Collectio n Time Received Time / Laterality Volume 02/12/2006 Narrative This result has an attachment that is no t available. Tiffany Leonard MD REFERRAL documented in this encounter Visit Diagnoses Diagnosis DIAGNOSIS NOT YET DEFINED - Primary documented in this encounter Care Teams Facilities Maintenance Engineer Relationship Specialty Start Date End Date Tiffany Leonard MD PCP - General 04/16/01 05/23/21 documented as of this encounter
--- OUTSIDE RECORDS SUMMARY | 2021-12-25 14:11 | XMS_ITS | Encounter Summary ---
:1945 Author Organization [facility] Address [address] [place] [address] Care Team Providers Name Role Phone Tiffany Leonard MD Primary Care Provider [phone] Encounter Details Date Type Department Care Team Description 02/04/2006 Orders Only [facility] Tiffany Leonard DIAGNOSIS NOT YET Clinic Darrian Marinelli MD DEFINED (Primary Dx) [address] [address] [place] [address] [place], [place] [phone] (Wo rk) [address] [phone] Social History Tobacco Use Types Packs/Day Years [...] Priority Date/Time Associated Diagnosis Comme nts C DEXA, BONE DENSITY, AXIAL Routine 02/04/2006 DIAGNOSIS NOT YET DEFINED SKEL documented in this encounter Results DEXA, BONE DENSITY, AXIAL SKEL (02/04/2006) Anatomical Region Laterality Modality Other Specimen (Source) Anatomical Location Collection Method / Collectio n Time Received Time / Laterality Volume 02/04/2006 Narrative This result has an attachment that is no t available. Tiffany Leonard MD SPECIAL IMAGING STUDIES documented in this encounter Visit Diagnoses Diagnosis DIAGNOSIS NOT YET DEFINED - Primary documented in this encounter Care Teams Pilot Control Operator Helper Relationship Specialty Start Date End Date Tiffany Leonard MD PCP - General 04/16/01 05/23/21 documented as of this encounter
--- OUTSIDE RECORDS SUMMARY | 2021-12-25 14:11 | XMS_ITS | Encounter Summary ---
:1945 Author Organization [facility] Address [address] [place] [address] Care Team Providers Name Role Phone Tiffany Leonard MD Primary Care Provider [phone] Encounter Details Date Type Department Care Team Description 07/08/[address] [facility] Preethi Pagan [facility] [place] [address] [place] [address] Social History Tobacco Use [...] Associated Diagnosis Comme nts HCL LDL-CHOLESTEROL Routine 07/08/2006 DIAGNOSIS NOT YET Res ults for this DEFINED procedure are i n the results section . HCL TSH Routine 07/08/2006 DIAGNOSIS NOT YET Results fo r this DEFINED procedure are i n the results section . HCL POTASSIUM Routine 07/08/2006 DIAGNOSIS NOT YET Results f or this DEFINED procedure are i n the results section . HCL TRIGLYCERIDES Routine 07/08/2006 DIAGNOSIS NOT YET Resul ts for this DEFINED procedure are i n the results section . HCL AST Routine 07/08/2006 DIAGNOSIS NOT YET Results fo r this DEFINED procedure are i n the results section . HCL HDL CHOLESTEROL Routine 07/08/2006 DIAGNOSIS NOT YET Res ults for this DEFINED procedure are i n the results section . HCL CREATININE Routine 07/08/2006 DIAGNOSIS NOT YET Results for this DEFINED procedure are i n the results section . HCL CHOLESTEROL Routine 07/08/2006 DIAGNOSIS NOT YET Results for this DEFINED procedure are i n the results section . documented in this encounter Results TSH [31361.001] (07/08/2006) P athologist Signature TSH 2.4@ mcU/mL [facility] Pre[facility] P[facility]ORAT[facility] Performing Organization Address [facility] Phon e Number M[facility] TRIGLYCERIDES [60759.000] (07/08/2006) P athologist Signature Triglycerides 213@ mg/dL [facility] Preethi Latasha LABORAT[facility] Performing Organization Address [facility] Phon e Number M[facility] HDL CHOLESTEROL [[id number]] (07/08/2006) P athologist Signature HDL Cholesterol 30@ mg/dL [facility] Pre[facility] Performing Organization Address [facility] Phon e Number M[facility] LDL-CHOLESTEROL [[id number]] (07/08/2006) P athologist Signature LDL Cholesterol 89@ mg/dL [facility] Calculated Preethithao P[facility] Performing Organization Address [facility] Phon e Number M[facility] CHOLESTEROL [[id number]] (07/08/2006) P athologist Signature Cholesterol 162@ 115 - 199 M[facility] mg/dL Preethithao Pagan [facility] Performing Organization Address [facility] Phon e Number [facility] CREATININE [[id number]] (07/08/2006) P athologist Signature Creatinine 0.7@ mg/dL [facility] Performing Organization Address [facility] Phon e Number MISYS AST [[id number]] (07/08/2006) P athologist Signature AST 21@ U/L [facility] Performing Organization Address [facility] Phon e Number [facility] POTASSIUM [[id number]] (07/08/2006) P athologist Signature Potassium 4.5@ mmol/L [facility] Preethi Pagan [facility] Performing Organization Address City/State/ZIP Code Phon e Number MISYS documented in this encounter Visit Diagnoses Diagnosis DIAGNOSIS NOT YET DEFINED - Primary documented in this encounter Care Teams Vice President Network Relationship Specialty Start Date End Date Tiffany Leonard MD PCP - General 04/16/01 05/23/21 documented as of this encounter
--- OUTSIDE RECORDS SUMMARY | 2021-12-25 14:11 | XMS_ITS | Encounter Summary ---
:1945 Author Organization [facility] Address [address] [place] [address]. [place] [address] Care Team Providers Name Role Phone Tiffany Leonard MD Primary Care Provider [phone] Reason for Referral - Closed Specialty Diagnoses / Procedures Referred By Contact Refer red To Contact Diagnoses Unspecified [place] [address] [place] [address] Referral ID Status Reason Start Date Expiration Date Visits Requ ested Visits Authorized [id number] Closed 07/29/2006 03/01/2011 1 1 Reason for Visit Reason Comments Eye Problem c/o swelling in her eye lids and more so on the right side. Is now affecting her vision. In the evening is worse and difficulty seeing. Encounter Details Date Type Department Care Team Description 07/29/2006 Office Visit [facility] Tiffany Leonard PTOSIS OF EYELID NOS Clinic Darrian Marinelli MD (Primary Dx) [address] [address] [place] [address] [place], [place] [phone] (Wo rk) [address] [phone] Social History Tobacco Use Types Packs/Day Years Used Date Smoking Tobacco: Former Cigarettes Quit : 05/14/1988 Alcohol Use Standard Drinks/Week Comments No 0 (1 standard drink = 0.6 oz pure alcoho l) Sex Assigned at Date Recorded Female 05/22/2021 3:03 PM CDT documented as of this encounter Last Filed Vital Signs Vital Sign Reading Time Taken Comments Blood Pressure 128/62 07/29/2006 10:45 AM CDT Pulse 82 07/29/2006 10:45 AM CDT Temperature - - Respiratory Rate 17 07/29/2006 10:45 AM CDT Oxygen Saturation - - Inhaled Oxygen Concentration - - Weight 83.9 kg (185 lb) 07/29/2006 10:45 AM CDT Height - - Body Mass Index 30.55 04/15/2006 10:45 AM REGIONAL LIAISON documented in this encounter Progress Notes Tiffany Leonard - 07/29/2006 10:56 AM CDT Chief Complaint Patient presents with ??? Eye Problem c/o swelling in her eye lids and more so on the right side. Is now affecting her vision. In the evening is worse and difficulty seeing. Subjective: Mayra Quinn presents with concerns about droopy eyelids, right more so than the left. She isright handed. No blurred vision, eye exam is up to date. Notes trouble with obstructed vision more later in the day. It seems to bother her peripheral visonson the right. Objective: BP 128/62 Pulse 82 Resp 17 Wt 185 lbs (83.9kg) LMP Hysterectomy General: pleasant, alert female; no acute distress HEENT: EOM intact; bilateral ptosis of the eye noted; redundant eyelids bilaterally, slightly more prominent on the right. PERRLA ASSESSMENT/PLAN: 374.30 PTOSIS OF EYELID NOS (primary encounter diagnosis) Note: Bilateral; suspect she notices more on the right due to being more right eye dominant Plan: CONSULT OPHTHALMOLOGY Recommend evaluation for possible blepharoplasty with Drs. Aguilar or Bright. Referral provided. documented in this encounter Nursing Notes 07/29/2006 10:45 AM CDT >> AXEL BERG 07/29/2006 10:57 am Mayra Quinn presents for c/o eye lid swelling and affecting her vision. Initial BP 128/62 Pulse 82 Resp 17 Wt 185 lbs (83.9kg) LMP Hysterectomy Estimated Body mass index is 30.56 kg/(m^2) as calculated from: Height of 5' 5.25 (1.657 m) as of 04/15/06 Weight of 185 lbs (83.915 kg) as of this encounter. BP completed using cuff size: large documented in this encounter Plan of Treatment Not on filedocumented as of this encounter Procedures Procedure Name Priority Date/Time Associated Diagnosis Comme nts ZZ CONSULT OPHTHALMOLOGY Routine 11/09/2006 Ptosis Of Eye lid Nos documented in this encounter Results CONSULT OPHTHALMOLOGY (11/09/2006) Narrative This result has an attachment that is no t available. Tiffany Leonard MD REFERRAL documented in this encounter Visit Diagnoses Diagnosis Unspecified ptosis of eyelid - Primary documented in this encounter Care Teams Clinical Data Coordinator Relationship Specialty Start Date End Date Tiffany Leonard MD PCP - General 04/16/01 05/23/21 documented as of this encounter
--- OUTSIDE RECORDS SUMMARY | 2021-12-25 14:11 | XMS_ITS | Encounter Summary ---
:1945 Author Organization [facility] Address [address] [place] [address]. [place] [address] Care Team Providers Name Role Phone Tiffany Leonard MD Primary Care Provider [phone] Reason for Visit Reason Onset Date Comments Medication Request 01/09/2006 neurontin Encounter Details Date Type Department Care Team Description 01/09/2006 Telephone [facility] Tiffany Leonard Medicatio n Request Clinic Darrian Marinelli MD (neurontin) [address] [place] [address] [place] [address] [place], [place] [phone] (Wo rk) [address] [phone] Social History Tobacco Use Types Packs/Day Years Used Date Smoking Tobacco: Former Cigarettes Quit : 05/14/1988 Alcohol Use Standard Drinks/Week Comments No 0 (1 standard drink = 0.6 oz pure alcoho l) Sex Assigned at Date Recorded Female 05/22/2021 3:03 PM CDT documented as of this encounter Miscellaneous Notes Telephone Encounter - Tiffany Leonard - 01/09/2006 5:01 PM CST Discussed at appt. Rx Faxed RICULTURIST Telephone Encounter - Johanna White - 01/09/2006 4:57 PM CST Pt calling; states she discussed possible rx for Neurontin for pain in feet. Declined rx at [facility], but would now like to try this, if possible. Please advise, thanks. 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
--- OUTSIDE RECORDS SUMMARY | 2021-12-25 14:11 | XMS_ITS | Encounter Summary ---
:1945 Author Organization [facility] Address [address] [place] [address] Care Team Providers Name Role Phone Tiffany Leonard MD Primary Care Provider [phone] Encounter Details Date Type Department Care Team Description 09/27/[address] [facility] Travis Araiza ([facility] [place] Consultant) Hospitalists MD Sarabjit [address] [facility] [address] [phone] [place] [address] 01 (Wo rk) Social History Tobacco Use Types Packs/Day Years Used Date Smoking Tobacco: Former Cigarettes Quit : 05/14/1988 Alcohol Use Standard Drinks/Week Comments No 0 (1 standard drink = 0.6 oz pure alcoho l) Sex Assigned at Date Recorded Female 05/22/2021 3:03 PM CDT documented as of this encounter Progress Notes Travis Araiza - 10/01/2006 3:39 PM CDT FINAL PRIMARY CARE PHYSICIAN: CHIEF COMPLAINT: Chest pain. HISTORY OF PRESENT ILLNESS: Orlin Nunez is a 60-year-old female who woke up with increased discomfort in her right arm that woke her from sleep at approximately 2:00. She was able to return to sleep. The pain did last for about 15 minutes but at approximately 5:00 a.m. she awoke with heaviness in her chest. She denied nausea or diaphoresis. She denied radiation of the pain to the carotids or to the arms. She has had been having this pain on and off for the past 2 weeks. It is unlike the pain she has had when she has had previous ulcer disease and it is dissimilar to the pain she had when shehad her myocardial infarction. However, she did have the same sensation of heaviness. The pain seemsto radiate from her right shoulder into her right back. The pain actually improves with movement of her right arm. The pain also improved with Toradol. The pain did not respond to Nitro in the ED. She takes Pravachol for hyperlipidemia and assures me her cholesterol is good. She denies fevers, chills or cough. The patient has a history of ulcer disease but has no nausea or epigastric pain. The patient has had a history of normal stress test, but she hasn't had cardiac stress evaluation for some years. ALLERGIES: SULFA, LIPITOR. MEDICATIONS: 1. Aspirin 81 mg p.o. daily. 2. Atenolol 25 mg p.o. b.i.d. 3. Fosamax 70 mg p.o. q. week. 4. Pravachol 20 mg p.o. daily. 5. Neurontin 300 mg p.o. daily. 6. Prevacid 20 mg p.o. daily. PAST MEDICAL HISTORY: 1. Coronary artery disease with [place] in 1988. 2. Mastectomy. 3. Breast cancer. 4. Neuropathy. SOCIAL HISTORY: , no tobacco, no alcohol. She is retired. FAMILY HISTORY: Mother 80 has COPD. Father 58, of [place], stroke, brother, 27, of heart disease. REVIEW OF SYSTEMS: CONSTITUTIONAL: Negative for fevers, chills, night sweats. HEENT: Negative for visual disturbance, negative for pharyngitis. PULMONARY: Negative for cough, negative for hemoptysis CARDIAC: Negative for palpitations, positive for chest pain. GASTROINTESTINAL: Negative for nausea, vomiting, diarrhea, constipation Negative for frequency, urgency or hesitancy of urination. ENDOCRINE negative for polyuria, polyphagia, polydipsia, negative for thyroid disease. MUSCULOSKELETAL: negative for myalgias, negative for arthralgias NEUROLOGIC: Negative tremor, positive for neuropathy. SKIN: Negative for swelling or edema. PSYCHIATRIC: Negative for anxiety, negative for depression. PHYSICAL EXAMINATION: VITAL SIGNS: Blood pressure 117/67, Pulse 51, respirations 16. GENERAL APPEARANCE: A middle-aged female lying in no acute distress. NECK: No JVP, no bruits. No thyromegaly. HEENT negative for visual disturbance, negative for pharyngitis. Eyes Pupils are equal and reactiveto light and accommodation. Extraocular movements are intact. CARDIAC: Normal S1 plus S2, regular rate and rhythm, no murmurs, gallops, rubs or clicks. PULMONARY: Lungs are clear bilaterally, no dullness to percussion. ABDOMEN: Soft, non-tender, bowel sounds are present MUSCULOSKELETAL: 5/5 upper muscular strength bilaterally. There is no increased tenderness with manipulation of the right shoulder. There is no range of motion limitation. There is no clubbing of digits NEURO: Sensation is intact in distal extremities bilaterally. There is no tremor. SKIN: No jaundice or rash. LYMPHORETICULAR: no anterior, posterior, cervical lymphadenopathy, no trochlear lymphadenopathy. LABORATORY: Sodium is 139, potassium is 4.3, chloride is 105, CO2 is 25, glucose 122, creatinine 0.64, BUN 11, lipase 164, troponin is less than 0.04. White blood count 7.0, hemoglobin is 14.3, platelet count 204, lipase 164. ASSESSMENT/PLAN: 1. Chest pain, cannot exclude unstable angina or rule out myocardial infarction. The patient will be admitted to [facility] and have a troponin in six hours. If myocardial infarction is excluded, the patientwill undergo a stress thallium testing. If the patient has acute myocardial infarction, she has alrea dy been given aspirin. Her beta garret will be restarted. She will be placed on MONIQUE inhibitor, cardiology will be consulted. The patient may need a nitroglycerin drip and will be placed on heparin. Ifthe patient does not have acute myocardial infarction, she will undergo stress testing. If the patient just shows evidence of ischemic heart disease, the patient will be managed on atenolol, aspirin, metoprolol and MONIQUE inhibitor will be added and possible cardiology consultation will be obtained. The patient will have two choices if she has a positive stress test, medical management if she has a small area of reversible ischemia and if she has a large area of reversible ischemia, I will have cardiology evaluate and make recommendations the patient. The patient will need to have a stress thallium test as her chest wall size will most likely make echocardiography difficult and since she is female she is high risk for false positive EKG portion of the stress test. The patient's chest pain will also be treated for musculoskeletal causes with Lortab and Flexeril available as well with IV morphine. 2.The patient will have fasting lipid profile done in the a.m. Electronically signed on 10/01/2006 15:38 by TRAVIS ARAIZA MD MT: [facility] Name: ORLIN NUNEZ MRN: [id number] Account: [id number] : 1945 Admitted: [id number] Document: [id number] cc: Tiffany Leonard MD documented in this encounter Plan of Treatment Not on filedocumented as of this encounter Visit Diagnoses Not on filedocumented in this encounter Care Teams Rack Puller Relationship Specialty Start Date End Date Tiffany Leonard MD PCP - General 04/16/01 05/23/21 documented as of this encounter
--- OUTSIDE RECORDS SUMMARY | 2021-12-25 14:11 | XMS_ITS | Encounter Summary ---
:1945 Author Organization [facility] Address [address] [place] [address] Care Team Providers Name Role Phone Tiffany Leonard MD Primary Care Provider [phone] Encounter Details Date Type Department Care Team Description 08/27/2004 Abstract [facility] Nadiya Johnson LABS FROM [facility] [address] [place] [address] Social History Tobacco Use Types Packs/Day Years Used Date Smoking Tobacco: Never Assessed Sex Assigned at Date Recorded Female 05/22/2021 3:03 PM CDT documented as of this encounter Plan of Treatment Not on filedocumented as of this encounter Procedures Procedure Name Priority Date/Time Associated Diagnosis Comme nts HCL GLUCOSE Routine 09/26/2004 DIAGNOSIS NOT YET Results fo r this DEFINED procedure are i n the results section . HCL LDL-CHOLESTEROL Routine 08/27/2004 DIAGNOSIS NOT YET Res ults for this DEFINED procedure are i n the results section . HCL POTASSIUM Routine 08/27/2004 DIAGNOSIS NOT YET Results f or this DEFINED procedure are i n the results section . HCL TRIGLYCERIDES Routine 08/27/2004 DIAGNOSIS NOT YET Resul ts for this DEFINED procedure are i n the results section . HCL AST Routine 08/27/2004 DIAGNOSIS NOT YET Results fo r this DEFINED procedure are i n the results section . HCL HDL CHOLESTEROL Routine 08/27/2004 DIAGNOSIS NOT YET Res ults for this DEFINED procedure are i n the results section . HCL CREATININE Routine 08/27/2004 DIAGNOSIS NOT YET Results for this DEFINED procedure are i n the results section . HCL CHOLESTEROL Routine 08/27/2004 DIAGNOSIS NOT YET Results for this DEFINED procedure are i n the results section . HCL POTASSIUM Routine 08/25/2003 DIAGNOSIS NOT YET Results f or this DEFINED procedure are i n the results section . HCL GLUCOSE Routine 08/25/2003 DIAGNOSIS NOT YET Results fo r this DEFINED procedure are i n the results section . HCL AST Routine 08/25/2003 DIAGNOSIS NOT YET Results fo r this DEFINED procedure are i n the results section . HCL CREATININE Routine 08/25/2003 DIAGNOSIS NOT YET Results for this DEFINED procedure are i n the results section . HCL LDL-CHOLESTEROL Routine 08/23/2002 DIAGNOSIS NOT YET Res ults for this DEFINED procedure are i n the results section . HCL POTASSIUM Routine 08/23/2002 DIAGNOSIS NOT YET Results f or this DEFINED procedure are i n the results section . HCL TRIGLYCERIDES Routine 08/23/2002 DIAGNOSIS NOT YET Resul ts for this DEFINED procedure are i n the results section . HCL AST Routine 08/23/2002 DIAGNOSIS NOT YET Results fo r this DEFINED procedure are i n the results section . HCL CREATININE Routine 08/23/2002 DIAGNOSIS NOT YET Results for this DEFINED procedure are i n the results section . HCL CHOLESTEROL Routine 08/23/2002 DIAGNOSIS NOT YET Results for this DEFINED procedure are i n the results section . HCL POTASSIUM Routine 08/12/2002 DIAGNOSIS NOT YET Results f or this DEFINED procedure are i n the results section . HCL GLUCOSE Routine 08/12/2002 DIAGNOSIS NOT YET Results fo r this DEFINED procedure are i n the results section . HCL CREATININE Routine 08/12/2002 DIAGNOSIS NOT YET Results for this DEFINED procedure are i n the results section . documented in this encounter Results GLUCOSE [10495.005] (09/26/2004) athologist Signature Glucose 109@ mg/dL [facility] Performing Organization Address City/State/ZIP Code Phon e Number [facility] TRIGLYCERIDES [73449.000] (08/27/2004) P athologist Signature Triglycerides 260@ mg/dL [facility] LABORATORY Performing Organization Address City/State/ZIP Code Phon e Number [facility] HDL CHOLESTEROL [95475.000] (08/27/2004) athologist Signature HDL Cholesterol 37@ mg/dL [facility] Nadiya Alex LABORATORY Performing Organization Address [facility] Phon e Number [facility] LDL-CHOLESTEROL [35532.001] (08/27/2004) P athologist Signature LDL Cholesterol 101@ mg/dL [facility] Calculated Nadiya Alex LABORATORY Performing Organization Address [facility] Phon e Number [facility] CHOLESTEROL [59020.000] (08/27/2004) P athologist Signature Cholesterol 190@ 115 - 199 [facility] mg/dL Nadiya Alex LABORATORY Performing Organization Address [facility] Phon e Number [facility] AST [87902.000] (08/27/2004) P athologist Signature AST 20@ U/L [facility] Nadiya Alex LABORATORY Performing Organization Address [facility] Phon e Number [facility] CREATININE [50930.000] (08/27/2004) P athologist Signature Creatinine 0.8@ mg/dL [facility] Nadiya Alex LABORATORY Performing Organization Address [facility] Phon e Number [facility] POTASSIUM [[id number]] (08/27/2004) P athologist Signature Potassium 4.2@ mmol/L [facility] Nadiya Alex LABORATORY Performing Organization Address [facility] Phon e Number [facility] CREATININE [22790.000] (08/25/2003) P athologist Signature Creatinine 0.8@ mg/dL [facility] Nadiya Alex LABORATORY Performing Organization Address City/[facility]/ZIP Code Phon e Number [facility] GLUCOSE [41539.005] (08/25/2003) P athologist Signature Glucose 97@ mg/dL [facility] Nadiya Alex LABORATORY Performing Organization Address [facility] Phon e Number [facility] POTASSIUM [[id number]] (08/25/2003) P athologist Signature Potassium 3.9@ mmol/L [facility] Nadiya Alex LABORATORY Performing Organization Address [facility]/ZIP Code Phon e Number [facility] AST [95630.000] (08/25/2003) P athologist Signature AST 19@ U/L [facility] Nadiya Alex LABORATORY Performing Organization Address [facility] Phon e Number [facility] CHOLESTEROL [41952.000] (08/23/2002) P athologist Signature Cholesterol 186@ 115 - 199 [facility] mg/dL Nadiya Alex LABORATORY Performing Organization Address [facility]/ZIP Code Phon e Number [facility] LDL-CHOLESTEROL [88756.001] (08/23/2002) P athologist Signature LDL Cholesterol 110@ mg/dL [facility] Calculated Nadiya Alex LABORATORY Performing Organization Address [facility] Phon e Number [facility] TRIGLYCERIDES [07260.000] (08/23/2002) P athologist Signature Triglycerides 212@ mg/dL [facility] Nadiya Alex LABORATORY Performing Organization Address [facility] Phon e Number [facility] CREATININE [98305.000] (08/23/2002) P athologist Signature Creatinine 0.9@ mg/dL [facility] Nadiya Alex LABORATORY Performing Organization Address [facility] Phon e Number [facility] AST [99181.000] (08/23/2002) P athologist Signature AST 20@ U/L [facility] Nadiya Alex LABORATORY Performing Organization Address City/[facility]/ZIP Code Phon e Number [facility] POTASSIUM [89882.001] (08/23/2002) P athologist Signature Potassium 4.0@ mmol/L [facility] Nadiya Alex LABORATORY Performing Organization Address [facility]/ZIP Code Phon e Number [facility] CREATININE [00026.000] (08/12/2002) P athologist Signature Creatinine 0.8@ mg/dL [facility] Nadiya Alex LABORATORY Performing Organization Address City/State/ZIP Code Phon e Number [facility] GLUCOSE [51784.005] (08/12/2002) athologist Signature Glucose 107@ mg/dL [facility] Nadiya Alex LABORATORY Performing Organization Address City/State/ZIP Code Phon e Number [facility] POTASSIUM [70546.001] (08/12/2002) athologist Signature Potassium 4.4@ mmol/L [facility] Nadiya Alex LABORATORY Performing Organization Address City/State/ZIP Code Phon e Number [facility] documented in this encounter Visit Diagnoses Diagnosis DIAGNOSIS NOT YET DEFINED - Primary documented in this encounter Care Teams Lace Burn Out Tender Relationship Specialty Start Date End Date Tiffany Leonard MD PCP - General 04/16/01 05/23/21 documented as of this encounter
--- OUTSIDE RECORDS SUMMARY | 2021-12-25 14:11 | XMS_ITS | Encounter Summary ---
:1945 Author Organization [facility] Address [address] [place] [address] Care Team Providers Name Role Phone Tiffany Leonard MD Primary Care Provider [phone] Reason for Visit Reason Comments Cough has had a cough for the past 5 weeks but feels it is improving some. Establish Care Dr. Garcia in [place] and shannon [place]kee. Encounter Details Date Type Department Care Team Description 11/13/2005 Office Visit [facility] Tiffany Leonard COUGH; Clinic Darrian Marinelli MD MIXED HYPERLIPIDEMIA; [address] [address] [address] ASCVD; [place], [place] OSTEOPOROSIS NOS; [place] [address] PERS HX OF BREAST MALIGNANCY [address] Social History Tobacco Use Types Packs/Day Years Used Date Smoking Tobacco: Former Cigarettes Quit : 05/14/1988 Alcohol Use Standard Drinks/Week Comments No 0 (1 standard drink = 0.6 oz pure alcoho l) Sex Assigned at Date Recorded Female 05/22/2021 3:03 PM CDT documented as of this encounter Last Filed Vital Signs Vital Sign Reading Time Taken Comments Blood Pressure 130/62 11/13/2005 3:30 PM CDT Pulse 66 11/13/2005 3:30 PM CDT Temperature - - Respiratory Rate 18 11/13/2005 3:30 PM CDT Oxygen Saturation - - Inhaled Oxygen Concentration - - Weight 84.4 kg (186 lb) 11/13/2005 3:30 PM CDT Height 166.4 cm (5' 5.5) 11/13/2005 3:30 PM CDT Body Mass Index 30.48 11/13/2005 3:30 PM CDT documented in this encounter Progress Notes Tiffany Leonard - 11/13/2005 5:15 PM CDT Chief Complaint: new patient History of Present Illness: Mayra Quinn is a 60 year old female who presents to [facility] care. She is in need of cholesterol follow up and has concerns about voice, cough and thyroid. Past Medical History Diagnosis Date ??? MIXED HYPERLIPIDEMIA Statin; Pravachol; Low HDL ??? PERS HX OF BREAST MALIGNANCY 1997 Mastectomy and chemotherapy; Recurrence 2001; Chemo and radiation; Tamoxifen, now Arimedex; followed at [facility] ??? ASCVD 1988 [facility] ??? OSTEOPOROSIS NOS Fosamax Past Surgical History Procedure Date ??? Mastectomy, mod radical (any) ??? Hysterectomy, karen 1989 ??? Appendectomy 1989 ??? Arthroscopy knee rt/lt right knee ??? Tonsillectomy child luciano ??? Angioplasty 1988 [facility] Allergies Allergen Reactions ??? Sulfa Drugs Hives ??? Latex Hives and Itching Bandaids and other contact Current outpatient prescriptions Medication Sig ??? FOSAMAX 70 MG OR TABS 1 Tablet Weekly ??? ARIMIDEX 1 MG OR TABS 1 TABLET DAILY ??? PRAVACHOL 20 MG OR TABS 1 TABLET AT BEDTIME ??? ATENOLOL 25 MG OR TABS 1 TABLET DAILY ??? ASPIRIN 81 MG OR TABS 1 TABLET DAILY ??? GLUCOSAMINE CHONDROITIN COMPLX OR CAPS 1 daily History Social History ??? Marital Status: N/A Spouse Name: N/A Number of Children: N/A ??? Years of Education: N/A Occupational History ??? Not on file. Social History Main Topics ??? Tobacco Use: Quit Quit date: 05/14/1988 ??? Alcohol Use: No ??? Drug Use: No ??? Sexually Active: Yes -- Male partners Other Topics Concern ??? 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 PHYSICAL EXAMINATION: BP 130/62 Pulse 66 Resp 18 Ht 5' 5.5 (1.66m) Wt 186 lbs (84.4kg) LMP Hysterectomy General [...] RRR. No murmurs, clicks gallops or rub Lymph Nodes: No anterior cervical, posterior cervical, supraclavicular, infraclavicular, axillary, or inguinal adenopathy Abdomen: Abdomen soft, non-tender. BS normal. No masses, organomegaly Extremities: Extremities normal. No deformities, edema, or skin discoloration. Musculoskeletal: ARthritic changes Peripheral pulses: Normal pulses; Neuro: nonfocal exam ASSESSMENT/PLAN New to the clinic 786.2 COUGH Note: Reflux, triggers reviewed; trial of med Plan: OMEPRAZOLE 40 MG OR CPDR, TSH W/FREE T4 REFLEX 272.2 MIXED HYPERLIPIDEMIA Note: Cholesterol; risk assessment; no labs for review Plan: PRAVACHOL 20 MG OR TABS Need old records and new labs due 429.2 ASCVD Note: Risk assessment; Goal LDL<100 Plan: ATENOLOL 25 MG OR TABS, ASPIRIN 81 MG OR TABS 733.00 OSTEOPOROSIS NOS Note: Continue calcium (1200-1500mg), vitamin D (400IU), and regular exercise. Plan: FOSAMAX 70 MG OR TABS V10.3 PERS HX OF BREAST MALIGNANCY Note: Followed by Oncology Plan: ARIMIDEX 1 MG OR TABS Tiffany Leonard MD electronically signed documented in this encounter Nursing Notes 11/13/2005 3:30 PM CDT >> MASSIEL HA 11/13/2005 4:29 pm Mayra Quinn presents for establishing care and cough. Initial BP 130/62 Pulse 66 Resp 18 Ht 5' 5.5 (1.66m) Wt 186 lbs (84.4kg) LMP HysterectomyBody mass index is 30.47 kg/(m^2).. BP completed using cuff size: large documented in this encounter Plan of Treatment Not on filedocumented as of this encounter Procedures Procedure Name Priority Date/Time Associated Diagnosis Comme nts HCL TSH W/FREE T4 Routine 11/13/2005 5:14 PM Cough Results for this REFLEX CDT Mixed Hyperlipidemia procedu re are in the results section. documented in this encounter Results TSH W/FREE T4 REFLEX (11/13/2005 5:14 PM CDT) P athologist Signature TSH 1.28 0.4 - 5.0 [facility] CLINIC LAB Specimen Anatomical Collection Method Collection Time Receive d Time (Source) Location / / Volume Laterality 11/13/2005 5:14 PM 6 5:19 CDT PM CDT Tiffany Leonard MD LABORATORY Performing Organization Address City/State/ZIP Code Phon e Number [facility] [address] [place] [address] [facility] documented in this encounter Visit Diagnoses Diagnosis Cough Mixed hyperlipidemia Unspecified cardiovascular disease Osteoporosis, unspecified Personal history of malignant neoplasm o f breast documented in this encounter Care Teams Garment Turner Relationship Specialty Start Date End Date Tiffany Leonard MD PCP - General 04/16/01 05/23/21 documented as of this encounter
--- OUTSIDE RECORDS SUMMARY | 2021-12-25 14:11 | XMS_ITS | Encounter Summary ---
:1945 Author Organization [facility] Address [address] [place] [address] Care Team Providers Name Role Phone Tiffany Leonard MD Primary Care Provider [phone] Reason for Referral Specialty Diagnoses / Procedures Referred By Contact [place] [address] [place] [address] Referral ID Status Reason Start Date Expiration Date Visits Requ ested Visits Authorized GER NICU Encounter Details Date Type Department Care Team Description 08/27/2004 Orders Only [facility] Tiffany Leonard DIAGNOSIS NOT YET Clinic Darrian Marinelli MD DEFINED (Primary Dx) [address] [address] [address] [place] [address] [place], [place] [phone] (Wo rk) [address] [phone] Social History Tobacco Use Types Packs/Day Years Used Date Smoking Tobacco: Never Assessed Sex Assigned at Date Recorded Female 05/22/2021 3:03 PM CDT documented as of this encounter Plan of Treatment Not on filedocumented as of this encounter Procedures Procedure Name Priority Date/Time Associated Diagnosis Comme nts ZZ OTHER SPECIALTY REFERRAL Routine 08/27/2004 DIAGNOSIS NOT YET DEFINED ([facility]) documented in this encounter Results CONSULT TO OTHER SPECIALTY (08/27/2004) Specimen (Source) Anatomical Location Collection Method / Collectio n Time Received Time / Laterality Volume 08/27/2004 Narrative This result has an attachment that is no t available. Tiffany Leonard MD REFERRAL documented in this encounter Visit Diagnoses Diagnosis DIAGNOSIS NOT YET DEFINED - Primary documented in this encounter Care Teams Back Shoe Worker Relationship Specialty Start Date End Date Tiffany Leonard MD PCP - General 04/16/01 05/23/21 documented as of this encounter
--- OUTSIDE RECORDS SUMMARY | 2021-12-25 14:11 | XMS_ITS | Encounter Summary ---
:1945 Author Organization [facility] Address [address] [place] [address]. [place] [address] Care Team Providers Name Role Phone Tiffany Leonard MD Primary Care Provider [phone] Reason for Visit Reason Onset Date Comments Refill Request 05/04/2006 Encounter Details Date Type Department Care Team Description 05/04/2006 Refill [facility] Tiffany Leonard MD [facility] [place] [address] [facility] [address] [place] [address] [place] [address] [phone] Social History Tobacco Use Types Packs/Day Years Used Date Smoking Tobacco: Former Cigarettes Quit : 05/14/1988 Alcohol Use Standard Drinks/Week Comments No 0 (1 standard drink = 0.6 oz pure alcoho l) Sex Assigned at Date Recorded Female 05/22/2021 3:03 PM CDT documented as of this encounter Miscellaneous Notes Telephone Encounter - Sivan Wilcox - 05/04/2006 1:11 PM CST Rx called in. IST HELPER Telephone Encounter - Radha Greer - 05/04/2006 12:51 PM CST These can be called in by a nurse to that line and left on voice mail. They need the patients benefits number and Dr. Leonard's KAYLYNN number. Please call them in. IST HELPER Telephone Encounter - Agnes Steiner - 05/04/2006 8:44 AM CST [facility] would not fill Atenolol 25mg one tablet BID 180 with 3 refills and Pravachol 20mg one tabletdaily at HS 90 with 3. MD line for [facility] is . They did not accept these two Rx's d/tcross-outs on the original, but they will fill them if MD calls in on the phone line. She is nearly out of meds. IST HELPER documented in this encounter Plan of Treatment Not on filedocumented as of this encounter Visit Diagnoses Not on filedocumented in this encounter Care Teams Notching Press Operator Relationship Specialty Start Date End Date Tiffany Leonard MD PCP - General 04/16/01 05/23/21 documented as of this encounter
--- OUTSIDE RECORDS SUMMARY | 2021-12-25 14:11 | XMS_ITS | Encounter Summary ---
:1945 Author Organization [facility] Address [address] [place] [address] Care Team Providers Name Role Phone Tiffany Leonard MD Primary Care Provider [phone] Encounter Details Date Type Department Care Team Description 08/22/2002 Orders Only [facility] Tiffany Leonard DIAGNOSIS NOT YET Clinic Darrian Marinelli MD DEFINED (Primary Dx) [address] [address] [place] [address] [place], [place] [phone] (Wo rk) [address] [phone] Social History Tobacco Use Types Packs/Day Years Used Date Smoking Tobacco: Never Assessed Sex Assigned at Date Recorded Female 05/22/2021 3:03 PM CDT documented as of this encounter Plan of Treatment Not on filedocumented as of this encounter Procedures Procedure Name Priority Date/Time Associated Diagnosis Comme nts [facility] UGI ENDOSCOPY, SIMPLE Routine 09/05/2003 DIAGNOSIS NOT YET DEFINED EXAM [facility] COLONOSCOPY THRU STOMA, Routine 08/22/2002 DIAGNOSIS NO T YET DEFINED DIAGNOSTIC documented in this encounter Results UPPER GI ENDOSCOPY,EXAM (09/05/2003) Specimen (Source) Anatomical Location Collection Method / Collectio n Time Received Time / Laterality Volume 09/05/2003 Narrative This result has an attachment that is no t available. Tiffany Leonard MD PROCEDURES COLONOSCOPY (08/22/2002) Specimen (Source) Anatomical Location Collection Method / Collectio n Time Received Time / Laterality Volume 08/22/2002 Narrative This result has an attachment that is no t available. Tiffany Leonard MD PROCEDURES documented in this encounter Visit Diagnoses Diagnosis DIAGNOSIS NOT YET DEFINED - Primary documented in this encounter Care Teams Medical Genetics Director Relationship Specialty Start Date End Date Tiffany Leonard MD PCP - General 04/16/01 05/23/21 documented as of this encounter
--- OUTSIDE RECORDS SUMMARY | 2021-12-25 14:13 | XMS_ITS | Encounter Summary ---
:1945 Author Organization [facility] Address [address] [place] [address] Care Team Providers Name Role Phone Unavailable Primary Care Provider Unavailable Encounter Details Date Type Department Care Team Description 08/17/2007 Hospital Encounter HX NO MAPPING Social History Tobacco Use Types Packs/Day Years Used Date Smoking Tobacco: Never Assessed Alcohol Habits Answer Date Recorded How often do you have a drink containing alcohol? Never 07/24/2020 How many drinks containing alcohol do you have on a typical Not asked day when you are drinking? How often do you have six or more drinks on one occasion? No t asked Social Isolation Answer Date Recorded In a typical week, how many times do you More than three con es a week 07/24/2020 talk on the phone with family, friends, or neighbors? How often do you get together with friends Not asked or relatives? How often do you attend uatsdin or More than 4 times per year 07/24/2020 orthodox services? Do you belong to any clubs or Yes 07/24/2020 organizations such as uatsdin groups, unions, fraternal or athletic groups, or school groups? How often do you attend meetings of the More than 4 times pe r year 07/24/2020 clubs or organizations you belong to? Are you now , , , 07/24/2020 , never or living with a partner? Physical Activity Answer Date Recorded On average, how many days per week do you engage in moderate to 4 days 07/24/2020 strenuous exercise (like walking fast, running, jogging, dancing, swimming, biking, or other activities that cause a light or heavy sweat)? On average, how many minutes do you engage in exercise at th is 50 min 07/24/2020 level? Stress Answer Date Recorded Do you feel stress - tense, restless, nervous, or anxious, N ot at all 07/24/2020 or unable to sleep at night because your mind is troubled all the time - these days? Financial Resource Strain Answer Date Recorded How hard is it for you to pay for the very basics like Not h luis at all 07/24/2020 food, housing, medical care, and heating? Food Insecurity Answer Date Recorded Within the past 12 months, you worried that your food would Never true 07/24/2020 run out before you got money to buy more. Within the past 12 months, the food you bought just didn't N ever true 07/24/2020 last and you didn't have money to get more. Transportation Needs Answer Date Recorded In the past 12 months, has lack of transportation kept you f rom No 07/24/2020 medical appointments or from getting medications? In the past 12 months, has lack of transportation kept you f rom No 07/24/2020 meetings, work, or getting things needed for daily living? Housing Stability Answer Date Recorded In the last 12 months, was there a time when you were not ab le No 07/24/2020 to pay the mortgage or rent on time? In the last 12 months, how many places have you lived? 1 07/24/2020 In the last 12 months, was there a time when you did not hav e a No 07/24/[address] or slept in a intermediate (including now)? Sex Assigned at Date Recorded Not on file documented as of this encounter Plan of Treatment Not on filedocumented as of this encounter Visit Diagnoses Not on filedocumented in this encounter
--- OUTSIDE RECORDS SUMMARY | 2021-12-25 14:13 | XMS_ITS | Encounter Summary ---
:1945 Author Organization [facility] Address [address] [place] [address] Care Team Providers Name Role Phone Unavailable Primary Care Provider Unavailable Encounter Details Date Type Department Care Team Description 07/17/2015 Hospital Encounter HX [facility] Trino Beckford M.D. [address] [place] [phone] (Wo rk) Social History Tobacco Use Types [...] or relatives? How often do you attend scientologist or More than 4 times per year 07/24/2020 anabaptist services? Do you belong to any clubs or Yes 07/24/2020 organizations such as scientologist groups, unions, fraternal or athletic groups, or [...] place to sleep or slept in a fdc (including now)? Sex Assigned at Date Recorded Not on file documented as of this encounter Miscellaneous Notes Miscellaneous - Lisa Oneill RAlexiN. - 07/17/2015 10:01 AM CDT *General Message From: LISA ONEILL RN To: LISA ONEILL RN; Sent: 07/17/2015 10:01:59 CDT Subject: *General Message Tho Vela Can you schedule Mrs. Quinn ([phone]) for a stress echo with me on ThursdayAugust 28 or another time that is convenient for her and your schedules? I am seeing her in [place] but we do not do the stress tests here so I want to do it in [place]. Thanks Simon Beckford Source: [facility] POWERCHART Document Id: [id number] documented in this encounter Plan of Treatment Not on filedocumented as of this encounter Visit Diagnoses Not on filedocumented in this encounter
--- OUTSIDE RECORDS SUMMARY | 2021-12-25 14:13 | XMS_ITS | Encounter Summary ---
:1945 Author Organization [facility] Address [address] [place] [address] Care Team Providers Name Role Phone Unavailable Primary Care Provider Unavailable Reason for Visit Appointment Request (Routine) - Closed Specialty Diagnoses / Procedures Referred By Contact Refer red To Contact Nephrology and Hypertension Referral ID Status Reason Start Date Expiration Date Visits Requ ested Visits Authorized [id number] Closed 12/08/2019 12/07/2020 1 1 Encounter Details Date Type Department Care Team Description 01/04/2020 External Outreach Division of [place], Hypertensi on And Chronic Kidney Disease Stage 1 (Primary Dx); Nephrology and King Buchanan Jr., Sjogren's (S icca) Syndrome (HCC); Hypertension in D[place]O. Hyperlipidemia; [place], [place] 200 [facility] Cancer Breast Personal History 200 [place] [phone] Social History Tobacco Use Types Packs/Day Years Used Date Smoking Tobacco: Unknown Alcohol Habits Answer Date Recorded How often [...] or relatives? How often do you attend jainism or More than 4 times per year 07/24/2020 baptist services? Do you belong to any clubs or Yes 07/24/2020 organizations such as jainism groups, unions, fraternal or athletic groups, or [...] place to sleep or slept in a correction (including now)? Sex Assigned at Date Recorded Not on file documented as of this encounter Progress Notes King Garza Jr., D.O. - 01/04/2020 11:30 AM CST Please see scanned in note under document viewer tab for the [facility] [place] outreach visit from this date. TIC INSTRUCTOR documented in this encounter Plan of Treatment Not on filedocumented as of this encounter Visit Diagnoses Diagnosis Hypertension And Chronic Kidney Disease Stage 1 - Primary Sjogren's (Sicca) Syndrome (HCC) Hyperlipidemia Cancer Breast Personal History documented in this encounter
--- OUTSIDE RECORDS SUMMARY | 2021-12-25 14:13 | XMS_ITS | Encounter Summary ---
:1945 Author Organization [facility] Address [address] [place] [address] Care Team Providers Name Role Phone Unavailable Primary Care Provider Unavailable Encounter Details Date Type Department Care Team Description 09/05/2003 Hospital Encounter HX NO MAPPING Social History [...] More than 4 times per year 07/24/2020 protestant services? Do you belong to any clubs [...] place to sleep or slept in a penitentiary (including now)? Sex Assigned at Date Recorded Not on file documented as of this encounter Plan of Treatment Not on filedocumented as of this encounter Procedures Procedure Name Priority Date/Time Associated Diagnosis Comme nts HXGENERAL PATHOLOGY Routine 09/05/2003 11:04 AM R esults for this REPORT CDT procedure are i n the results section. documented in this encounter Results Hx general Pathology Report (09/05/2003 11:04 AM CDT) Specimen Anatomical Collection Method Collection Time Receive d Time (Source) Location / / Volume Laterality 09/05/2003 11:04 09/05/2003 AM CDT 11:04 AM CDT Narrative [facility] - 09/05/2003 11:04 AM CDT ?09/05/2003 General Biopsy ? ([id number]) ? Requested By: ??Del Amaya M.D. ? ?[id number] ?? Additional Physician: ??Travis rosas M.D. [id number] ? TISSUE DESCRIPTION: [id number] A1 ?? A. ??Antrum, Stomach biopsy: ??(6 piece s 0.1 - 0.3 cm. in diameter) ?DIAGNOSIS: ?? Stomach, antrum, endoscopic biopsy: ??R eactive gastropathy with erosion. Antral mucosa shows reactive f oveolar hyperplasia, negligible inflammation, erosion, and n o Helicobacter pylori. ??These changes suggest chemical-type injury luna ch as can be seen with non-steroidal anti-inflammatory drugs, alcohol and bile reflux. ?? Normal fundic-type mucosa is also prese nt. ??No Helicobacter pylori. ? 09/06/03 ??Madelaine Rodrigez M.D. [phone] ? Procedure Note 05/23/2017 09/05/2003 General Biopsy ([id number]) Requested By: Del Amaya M.D. [phone] Additional Physician: Travis hinkle M.D. [id number] TISSUE DESCRIPTION: [id number] A1 A. Antrum, Stomach biopsy: (6 pieces 0. 1 - 0.3 cm. in diameter) DIAGNOSIS: Stomach, antrum, endoscopic biopsy: Jodee ctive gastropathy with erosion. Antral mucosa shows reactive f oveolar hyperplasia, negligible inflammation, erosion, and n o Helicobacter pylori. These changes suggest chemical-type injury luna ch as can be seen with non-steroidal anti-inflammatory drugs, alcohol and bile reflux. Normal fundic-type mucosa is also prese nt. No Helicobacter pylori. 09/06/03 Madelaine Rodrigez M.D. [phone] Historical Provider LAB PATHOLOGY/CYTOLOGY ORDER HIRAM Performing Organization Address City/State/ZIP Code Phon e Number [facility] - [address] [place] [address] 05 [facility] documented in this encounter Visit Diagnoses Not on filedocumented in this encounter
--- OUTSIDE RECORDS SUMMARY | 2021-12-25 14:13 | XMS_ITS | Encounter Summary ---
:1945 Author Organization [facility] Address [address] [place] [address] Care Team Providers Name Role Phone Unavailable Primary Care Provider Unavailable Reason for Visit Reason Comments Pre-scheduling Questionnaire Encounter Details Date Type Department Care Team Description 07/18/2020 Clinical Department of Prescheduling, Pre-scheduli ng Communication Orthopedic Surgery Provider Question evelyn in [place], [place] [address] [place] [phone] Social History Tobacco Use Types Packs/Day Years [...] or relatives? How often do you attend cheondoism or More than 4 times per year 07/24/2020 voodoo services? Do you belong to any clubs or Yes 07/24/2020 organizations such as cheondoism groups, unions, fraternal or athletic groups, or [...] this encounter Miscellaneous Notes Telephone Encounter - Marisol Tinoco - 07/18/2020 8:57 AM CDT Upper Extremity Pre-Scheduling Questionnaire documented in this encounter Plan of Treatment Not on filedocumented as of this encounter Visit Diagnoses Not on filedocumented in this encounter
--- OUTSIDE RECORDS SUMMARY | 2021-12-25 14:13 | XMS_ITS | Encounter Summary ---
:1945 Author Organization [facility] Address [address] [place] [address] Care Team Providers Name Role Phone Unavailable Primary Care Provider Unavailable Encounter Details Date Type Department Care Team Description 07/03/2020 Orders Only RST PCP [facility] Tamica Lujan M.D. [address] [place] [address] [phone] (Wo rk) Social History Tobacco Use Types [...] or relatives? How often do you attend taoism or More than 4 times per year 07/24/2020 worship services? Do you belong to any clubs or Yes 07/24/2020 organizations such as taoism groups, unions, fraternal or athletic groups, or [...]
--- OUTSIDE RECORDS SUMMARY | 2021-12-25 14:13 | XMS_ITS | Encounter Summary ---
:1945 Author Organization [facility] Address [address] [place] [address] Care Team Providers Name Role Phone Unavailable Primary Care Provider Unavailable Reason for Visit Outpatient (Routine) - Closed Specialty Diagnoses / Procedures Referred By Contact Refer red To Contact Diagnoses Pain Shoulder Left Vineet Valerio M.D. [facility] Procedures ORS US-Guided aspiration/injection [address] [place] [phone] Referral ID Status Reason Start Date Expiration Date Visits Requ ested Visits Authorized [id number] Closed 07/24/2020 07/24/2021 1 1 Encounter Details Date Type Department Care Team Description 07/24/2020 Procedure visit Department of Ramila Burns, Lore Schulz ldnathan Left Orthopedic Surgery in [address] [phone] Social History Tobacco Use Types Packs/Day Years [...] or relatives? How often do you attend sabianism or More than 4 times per year 07/24/2020 taoist services? Do you belong to any clubs or Yes 07/24/2020 organizations such as sabianism groups, unions, fraternal or athletic groups, or [...] place to sleep or slept in a fpc (including now)? Education Answer Date Recorded What is the highest level of school you have completed or 12 th grade 07/24/2020 the highest degree you have received? Sex Assigned at Date Recorded Not on file documented as of this encounter Procedure Notes Ramila Burns M.D. - 07/24/2020 3:00 PM CDTAssociated Order(s): ORS US-Guided aspiration/injection: L subacromial bursa Pre-Procedure Diagnose(s): Pain Shoulder Left Post-Procedure Diagnose(s): Pain Shoulder Left Shoulder site - L subacromial bursa : injection only Date/Time: 07/24/2020 12:49 PM Performed by: Ramila Burns M.D. Authorized by: Vineet Valerio M.D. PROCEDURE DETAILS Procedure Location shoulder Shoulder site: L subacromial bursa Site prep: patient was prepped and draped in usual sterile fashion Patient position: seated Procedural approach: anterolateral Procedure performed: injection only Needle gauge: 25 G, length: 2 in Image guidance Ultrasound The use of direct ultrasound visualization of the needle was required (rather than a non-guided injection) to ensure accurate injection delivery and to maximize clinical benefit beyond that obtained with a non-guided injection. Additionally, there can be diagnostic specificity when evaluating effectiveness of the injection, and for safety purposes to minimize risk of bleeding or injury to surroundingstructures. Additional procedure details or diagnostic findings may be noted under Other procedure detail in this note. Images have been archived in [employer] Book: click the 'Dept Filter' button in [employer], then the 'Clear (Show All)' button, then OK. Images saved: yes Pre-procedure image guidance used to localize target and identify at risk structures, and plan approach and site was marked using indelible marker. Probe: linear mid-frequency Needle approach: anterior to posterior Ultrasound visualization: in-plane Procedural Medication The following medications were administered at the target site(s) Local anesthetic: 2 mL bupivacaine PF 0.25 % (2.5 mg/mL); 1 mL lidocaine 10 mg/mL (1 %) Corticosteroid: 40 mg methylPREDNISolone acetate 40 mg/mL CONSENT Consent obtained: written UNIVERSAL PROTOCOL All relevant documentation and testing were reviewed and available. All required blood products, implants, devices and or special equipment were made available as applicable. Pre-procedure verificationwas conducted and the correct site was marked if required. A fire risk assessment was done as applicable. The procedural time-out was conducted prior to performing the procedure and confirmed in a procedural pause. PRE-PROCEDURE DETAILS Procedure purpose: therapeutic Indications: shoulder pain with rotator cuff pathology Appropriate hand hygiene, gown, cap, mask, protective eyewear, sterile gloves, skin preparation, sterile drape, and strict aseptic technique were utilized as applicable for the procedure: yes Skin preparation: chlorhexidine SEDATION / ANESTHESIA Anesthesia method: none POST-PROCEDURE DETAILS Procedure completed successfully: yes Complications: no apparent complications Post-procedure instructions: avoid strenuous activity for 5 days and avoid submersion of procedure site for 48 hours Discharge instructions: follow-up with ordering provider and ice area as needed for comfort Other procedure detail: Referring provider: Vineet Valerio M.D. for Dr. Avila documented in this encounter Plan of Treatment Not on filedocumented as of this encounter Procedures Procedure Name Priority Date/Time Associated Diagnosis Comme nts IN ARTHCS ASP/INJ Routine 07/24/2020 12:49 PM Pain Shoulder Le ft Results for this MJR JT W US CDT procedure are i n the results section. documented in this encounter Results IN ARTHCS ASP/INJ MJR JT W US (07/24/2020 12:49 PM CDT) Specimen (Source) Anatomical Location Collection Method / Collectio n Time Received Time / Laterality Volume Narrative [facility] - 07/24/2020 12:49 PM CDT Ramila Burns M.D. ? 07/24/2020 ??1:30 PM Shoulder site - L subacromial bursa : in jection only Date/Time: 07/24/2020 12:49 PM Performed by: Ramila Burns M.D. Authorized by: Vineet Valerio M.D. PROCEDURE DETAILS Procedure Location shoulder Shoulder site: L subacromial bursa Site prep: patient was prepped and drape d in usual sterile fashion ?? Patient position: seated Procedural approach: anterolateral Procedure performed: injection only Needle gauge: 25 G, length: 2 in Image guidance Ultrasound The use of direct ultrasound visualizati on of the needle was required (rather than a non-guided injection) to ensure accurate injection delivery and to maximize clinical benefit beyond that obtained with a non-guided injection. ??Additionally, there can be diagnostic specificity when evaluating effectiveness of the injectio n, and for safety purposes to minimize risk of bleeding or injury to s urrounding structures. Additional procedure details or diagnostic findings may be noted under Other procedure detail in this note. Images h ave been archived in [employer]: click the 'Dept Filter' button in [employer], then the 'Clear (Show All)' button, then OK. Images saved: yes Pre-procedure image guidance used to loc farzaneh target and identify at risk structures, and plan approach and site w as marked using indelible marker. Probe: linear mid-frequency Needle approach: anterior to posterior Ultrasound visualization: in-plane Procedural Medication The following medications were administe red at the target site(s) Local anesthetic: 2 mL bupivacaine PF 0. 25 % (2.5 mg/mL); 1 mL lidocaine 10 mg/mL (1 %) Corticosteroid: 40 mg methylPREDNISolone acetate 40 mg/mL CONSENT Consent obtained: written UNIVERSAL PROTOCOL All relevant documentation and testing w ere reviewed and available. All required blood products, implants, devic es and or special equipment were made available as applicable. Pre-proced ure verification was conducted and the correct site was marked if required. A fire risk assessment was done as applicable. The procedural time-out w as conducted prior to performing the procedure and confirmed in a procedu ral pause. PRE-PROCEDURE DETAILS Procedure purpose: therapeutic Indications: shoulder pain with rotator cuff pathology Appropriate hand hygiene, gown, cap, mas k, protective eyewear, sterile gloves, skin preparation, sterile drape, and strict aseptic technique were utilized as applicable for the procedure : yes ?? Skin preparation: chlorhexidine SEDATION / ANESTHESIA Anesthesia method: none POST-PROCEDURE DETAILS Procedure completed successfully: yes Complications: no apparent complications ?? Post-procedure instructions: avoid stren uous activity for 5 days and avoid submersion of procedure site for 48 hour s Discharge instructions: follow-up with o rdering provider and ice area as needed for comfort Other procedure detail: Referring provid er: Vineet Valerio M.D. for Dr. Avila Vineet Valerio M.D. PROCEDURE/MINOR SURGICAL ORD ERABLES Performing Organization Address City/State/ZIP Code Phon e Number [facility] MM[facility]AL NA documented in this encounter Visit Diagnoses Diagnosis Pain Shoulder Left documented in this encounter Administered Medications Inactive Administered Medications - up to 3 most recent administrations Medication Order MAR Action Action Date Dose Rate Site bupivacaine PF 0.25 % (2.5 mg/mL) Given 07/24/2020 12:49 PM CDT 2 mL injection 2 mL (MARCAINE) 2 mL, infiltration, One-Time Injection, Starting on Thu07/24/20 at 1249, For 1 dose lidocaine 10 mg/mL (1 %) injection 1 mL Given 07/24/2020 12:49 P M CDT 1 mL (XYLOCAINE) 1 mL, infiltration, One-Time Injection, Starting on Thu07/24/20 at 1249, For 1 dose methylPREDNISolone acetate injection 40 mg Given 07/24/2020 12:4 9 PM CDT 40 mg (DEPO-Medrol) 40 mg, intra-articular, One-Time Injection, Starting on Thu07/24/20 at 1249, For 1 dose documented in this encounter
--- OUTSIDE RECORDS SUMMARY | 2021-12-25 14:13 | XMS_ITS | Encounter Summary ---
:1945 Author Organization [facility] Address [address] [place] [address] Care Team Providers Name Role Phone Unavailable Primary Care Provider Unavailable Encounter Details Date Type Department Care Team Description 01/03/2020 Clinical Communication Division of Nephrology Kign Garza and Hypertension in Chanel Ruiz D.O. [place], [place] [address] [facility] [address] [place] [phone] Social History Tobacco Use Types Packs/Day Years [...] or relatives? How often do you attend adventism or More than 4 times per year 07/24/2020 denominational services? Do you belong to any clubs or Yes 07/24/2020 organizations such as adventism groups, unions, fraternal or athletic groups, or [...] place to sleep or slept in a senior living (including now)? Sex Assigned at Date Recorded Not on file documented as of this encounter Miscellaneous Notes Telephone Encounter - Magdy Yoon - 01/03/2020 10:40 AM CST Outside labs scanned into patients chart. Forwarded to nurses. SUPERVISOR documented in this encounter Plan of Treatment Not on filedocumented as of this encounter Visit Diagnoses Not on filedocumented in this encounter
--- OUTSIDE RECORDS SUMMARY | 2021-12-25 14:13 | XMS_ITS | Encounter Summary ---
:1945 Author Organization [facility] Address [address] [place] [address] Care Team Providers Name Role Phone Unavailable Primary Care Provider Unavailable Encounter Details Date Type Department Care Team Description 07/06/2009 Hospital Encounter HX NO MAPPING Social History [...] or relatives? How often do you attend baptism or More than 4 times per year 07/24/2020 amish services? Do you belong to any clubs or Yes 07/24/2020 organizations such as baptism groups, unions, fraternal or athletic groups, or [...] place to sleep or slept in a [facility] (including now)? Sex Assigned at Date Recorded Not on file documented as of this encounter Plan of Treatment Not on filedocumented as of this encounter Visit Diagnoses Not on filedocumented in this encounter
--- OUTSIDE RECORDS SUMMARY | 2021-12-25 14:13 | XMS_ITS | Encounter Summary ---
:1945 Author Organization [facility] Address [address] [place] [address] Care Team Providers Name Role Phone Unavailable Primary Care Provider Unavailable Reason for Visit Reason Comments Pre-visit Testing Orders L shldr pain Encounter Details Date Type Department Care Team Description 07/19/2020 Clinical Communication Department of Margarita, Pre- visit Testing Orthopedic Surgery Junior Paulino M.D. Orders (L shldr in [address] pain) [place], [place] [address] [facility] [address] [place], [place] [phone] (Work) [phone] Social History Tobacco Use Types Packs/Day Years [...] or relatives? How often do you attend mosque or More than 4 times per year 07/24/2020 jew services? Do you belong to any clubs or Yes 07/24/2020 organizations such as mosque groups, unions, fraternal or athletic groups, or [...] place to sleep or slept in a [facility] (including now)? Sex Assigned at Date Recorded Not on file documented as of this encounter Miscellaneous Notes Telephone Encounter - Mikaela Hernandez R - 07/19/2020 2:03 PM CDT Please sign orders for upcoming appointment, Thank you. documented in this encounter Plan of Treatment Not on filedocumented as of this encounter Results DX Shoulder Left 2+ Views (07/24/2020 9:40 AM CDT) Anatomical Region Laterality Modality Upper Extremity, Shoulder, Musculoskeletal RST LOS, Left Digital Radiography Musculoskeletal ARZ LOS, Muskuloskeletal FLA LOS Specimen (Source) Anatomical Collection Method Collection Time Re ceived Time Location / / Volume Laterality 07/24/2020 9:58 AM CDT Impressions 07/24/2020 9:59 AM CDT Osteopenia. 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 Impingement changes involving the greater tuberosity. Slightly narrowed luna bacromial space. Narrative 07/24/2020 9:59 AM CDT EXAM: ??DX SHOULDER LEFT 2+ VIEWS Procedure Note Andrea Montgomery M.D. - 07/24/2020Format ting of this note might be different from the original. EXAM: DX SHOULDER LEFT 2+ VIEWS IMPRESSION: Osteopenia. Moderate advanced degenerati ve arthritis left acromioclavicular and glenohumeral joint s. Impingement changes involving the greater tuberosity. Slightly narrowed luna bacromial space. Vineet [facility] BRUNA ROGERS documented in this encounter Visit Diagnoses Diagnosis Pain Shoulder Left - Primary Pain Shoulder Left documented in this encounter
--- OUTSIDE RECORDS SUMMARY | 2021-12-25 14:13 | XMS_ITS | Encounter Summary ---
:1945 Author Organization [facility] Address [address] [place] [address] Care Team Providers Name Role Phone Unavailable Primary Care Provider Unavailable Reason for Visit Appointment Request (Routine) - Closed Specialty Diagnoses / Procedures Referred By Contact Refer red To Contact Nephrology and Hypertension Referral ID Status Reason Start Date Expiration Date Visits Requ ested Visits Authorized [id number] Closed 01/31/2021 01/31/2022 1 1 Encounter Details Date Type Department Care Team Description 02/11/2021 External Outreach Division of Greg, Hypertensi on And Chronic Kidney Disease Stage 1 (Primary Dx); Nephrology and King Buchanan Jr., Hyperlipidem ia; Hypertension in D.O. Sjogren's (Sicca) Syndrome (HCC); [place], [place] [address] [facility] Proteinuria [address] [place] [phone] Social History Tobacco Use Types Packs/Day Years [...] or relatives? How often do you attend zoroastrianism or More than 4 times per year 07/24/2020 faith services? Do you belong to any clubs or Yes 07/24/2020 organizations such as zoroastrianism groups, unions, fraternal or athletic groups, or [...] place to sleep or slept in a long-term (including now)? Education Answer Date Recorded What is the highest level of school you have completed or 12 th grade 07/24/2020 the highest degree you have received? Sex Assigned at Date Recorded Not on file documented as of this encounter Progress Notes King Garza Jr., D.O. - 02/11/2021 2:30 PM CST Please see scanned in note under document viewer tab for the [facility] [place] outreach visit from this date. E WORKER documented in this encounter Plan of Treatment Not on filedocumented as of this encounter Visit Diagnoses Diagnosis Hypertension And Chronic Kidney Disease Stage 1 - Primary Hyperlipidemia Sjogren's (Sicca) Syndrome (HCC) Proteinuria documented in this encounter
--- OUTSIDE RECORDS SUMMARY | 2021-12-25 14:13 | XMS_ITS | Encounter Summary ---
:1945 Author Organization [facility] Address [address] [place] [address] Care Team Providers Name Role Phone Unavailable Primary Care Provider Unavailable Encounter Details Date Type Department Care Team Description 07/20/2020 Clinical Communication Central Appointment Carlitos wheatley, Office in [address] [address] Social History Tobacco Use Types Packs/Day Years [...] or relatives? How often do you attend buddhist or More than 4 times per year 07/24/2020 synagogue services? Do you belong to any clubs or Yes 07/24/2020 organizations such as buddhist groups, unions, fraternal or athletic groups, or [...] place to sleep or slept in a half-way (including now)? Sex Assigned at Date Recorded Not on file documented as of this encounter Plan of Treatment Not on filedocumented as of this encounter Visit Diagnoses Not on filedocumented in this encounter
--- OUTSIDE RECORDS SUMMARY | 2021-12-25 14:13 | XMS_ITS | Encounter Summary ---
:1945 Author Organization [facility] Address [address] [place] [address] Care Team Providers Name Role Phone Unavailable Primary Care Provider Unavailable Reason for Visit Appointment Request (Routine) - Closed Specialty Diagnoses / Procedures Referred By Contact Refer red To Contact Nephrology and Gumaro Powell Hypertension M.D. [address] [place] [address] Referral ID Status Reason Start Date Expiration Date Visits Requ ested Visits Authorized [id number] Closed 03/30/2019 03/29/2020 1 1 Encounter Details Date Type Department Care Team Description 04/06/2019 External Outreach Division of [facility] Garza on And Chronic Kidney Disease Stage 1 (Primary Dx); Nephrology and King Buchanan Jr., Sjogren's (S icca) Syndrome (HCC); Hypertension in D.O. Proteinuria; [place], [place] 200 [facility] Myocardial Infarction Old; [address] [place], [place] Cancer Breast Personal Histo ry; [place] [address] Hyperlipidemia [phone] [phone] Social History Tobacco Use Types Packs/Day Years [...] or relatives? How often do you attend alevism or More than 4 times per year 07/24/2020 gnosticism services? Do you belong to any clubs or Yes 07/24/2020 organizations such as alevism groups, unions, fraternal or athletic groups, or [...] minutes do you engage in exercise at is 50 min 07/24/2020 level? Stress Answer [...] place to sleep or slept in a nursing home (including now)? Sex Assigned at Date Recorded Not on file documented as of this encounter Consult Notes King Garza Jr. D.O. - 04/06/2019 2:00 PM CST Please see scanned in note under document viewer tab for the [facility] [place] outreach visit from this date. Y POLISHER documented in this encounter Plan of Treatment Not on filedocumented as of this encounter Visit Diagnoses Diagnosis Hypertension And Chronic Kidney Disease Stage 1 - Primary Sjogren's (Sicca) Syndrome (HCC) Proteinuria Myocardial Infarction Old Cancer Breast Personal History Hyperlipidemia documented in this encounter
--- OUTSIDE RECORDS SUMMARY | 2021-12-25 14:13 | XMS_ITS | Encounter Summary ---
:1945 Author Organization [facility] Address [address] [place] [address] Care Team Providers Name Role Phone Unavailable Primary Care Provider Unavailable Encounter Details Date Type Department Care Team Description 07/20/2006 Hospital Encounter HX NO MAPPING Social History [...] or relatives? How often do you attend mu-ism or More than 4 times per year 07/24/2020 caodaism services? Do you belong to any clubs or Yes 07/24/2020 organizations such as mu-ism groups, unions, fraternal or athletic groups, or [...] to sleep or slept in a senior care (including now)? Sex Assigned at Date Recorded Not on file documented as of this encounter Plan of Treatment Not on filedocumented as of this encounter Visit Diagnoses Not on filedocumented in this encounter
--- OUTSIDE RECORDS SUMMARY | 2021-12-25 14:13 | XMS_ITS | Encounter Summary ---
:1945 Author Organization [facility] Address [address] [place] [address] Care Team Providers Name Role Phone Unavailable Primary Care Provider Unavailable Reason for Referral Outpatient (Routine) - Closed Specialty Diagnoses / Procedures Referred By Contact Refer red To Contact Urology Diagnoses Incontinence Urinary Gumaro Powell M.D. [place] [address] [place] [address] Referral ID Status Reason Start Date Expiration Date Visits Requ ested Visits Authorized [id number] Closed 04/17/2020 04/17/2021 1 1 OPERATOR Encounter Details Date Type Department Care Team Description 04/17/2020 [facility] Sultana Powell Urinary AND CLINICS Kathy Naik (Primary Dx) [address] [place] [address] [place] [address] [place], [place] [phone] [address] Social History Tobacco Use Types Packs/Day Years [...] or relatives? How often do you attend caodaism or More than 4 times per year 07/24/2020 sikhism services? Do you belong to any clubs or Yes 07/24/2020 organizations such as caodaism groups, unions, fraternal or athletic groups, or [...] place to sleep or slept in a group home (including now)? Sex Assigned at Date Recorded Not on file documented as of this encounter Plan of Treatment Scheduled Referrals Name Type Priority Associated Diagnoses Order [facility] Referral Outpatient Referral Routine Incontinence Urin shayla Expected: 04/17/2020 (Approximate), Expires: 04/17/2023 documented as of this encounter Visit Diagnoses Diagnosis Incontinence Urinary - Primary documented in this encounter
--- OUTSIDE RECORDS SUMMARY | 2021-12-25 14:13 | XMS_ITS | Encounter Summary ---
:1945 Author Organization [facility] Address [address] [place] [address] Care Team Providers Name Role Phone Unavailable Primary Care Provider Unavailable Encounter Details Date Type Department Care Team Description 09/06/2015 Hospital Encounter HX [facility] ECHO Trino Elliott M.D. [address] [place] [address] [phone] (Wo rk) Social History Tobacco [...] or relatives? How often do you attend latter-day or More than 4 times per year 07/24/2020 catholic services? Do you belong to any clubs or Yes 07/24/2020 organizations such as latter-day groups, unions, fraternal or athletic groups, or [...] or slept in a fpc (including now)? Sex Assigned at Date Recorded Not on file documented as of this encounter Procedure Notes Sarabjit Elliott M.D. - 09/06/2015 12:00 AM CDT 1ECG Mrs. Quinn exercised 8 minutes achieving 9 METs without major cardiac symptoms. She was limited only by dyspnea. Her heart rate went from 59 to 121. The blood pressure went 148/78 to 162/84. With exercise there were no significant ECG changes. In recovery she had [address] depression in V4, V5, V6, which resolved at 4 minutes of recovery. This was not accompanied by symptoms. IMPRESSION 1. Positive ECG and recovery but not during exercise. 2. Excellent exercise tolerance. 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 However, the narrative phrase printed from the coding software may appear abbreviated, or result in slightly different terminology. Revised Coded By: BHARTI GALO Revised Date Saved: 09/11/2015 11:08 am Source: [facility] [place] Document Id: [id number] Miscellaneous - Lisa Oneill R.N. - 08/14/2015 10:36 AM CDT Patient Education Patient Education Entered On: 08/14/2015 10:37 CDT Performed On: 08/14/2015 10:36 CDT by LISA ONEILL RN Education General Patient Education Powergrid Topics : Other: Verbal and written education provided to patient regarding upcoming stress echocardiogram. Encouraged to call if questions arise. LISA ONEILL RN - 08/14/2015 10:36 CDT Source: [facility] Document Id: [id number] CDT!5 documented in this encounter Plan of Treatment Not on filedocumented as of this encounter Visit Diagnoses Not on filedocumented in this encounter
--- OUTSIDE RECORDS SUMMARY | 2021-12-25 14:13 | XMS_ITS | Clinical Summary ---
:1945 Author Organization [facility] Address [address] [place] [address] Care Team Providers Name Role Phone Unavailable Primary Care Provider Unavailable Source Comments Patient records contain information from all sites at [facility]. For routine questions regarding patient records, call [phone] during business hours, M-F 8:00 AM - 5:00 PM Central Time. Record requests for emergency care only can be directed to [phone] at any time.[facility] Medications No known medications Active Problems Problem Noted Date Cancer Breast Personal History 04/06/2019 Sjogren's (Sicca) Syndrome 04/06/2019 Proteinuria 04/06/2019 Myocardial Infarction Old 08/23/2002 Hyperlipidemia 08/23/2002 Hypertension And Chronic Kidney Disease Stage 1 2002 Immunizations Name Administration Dates Next Due HZV (ZOSTAVAX) 04/08/2011 Influenza Split 12/08/2013, 12/20/2012 PPSV23 04/08/2011 Tdap 08/10/2007 Social History Tobacco Use Types Packs/Day Years [...] or relatives? How often do you attend mandaen or More than 4 times per year 07/24/2020 pentecostal services? Do you belong to any clubs or Yes 07/24/2020 organizations such as mandaen groups, unions, fraternal or athletic groups, or [...] slept in a group home (including now)? Education Answer Date Recorded What is the highest level of school you have completed or 12 th grade 07/24/2020 the highest degree you have received? Sex Assigned at Date Recorded Not on file Last Filed Vital Signs Vital Sign Reading Time Taken Comments Blood Pressure 170/88 06/26/2016 10:29 AM CDT Pulse 56 06/26/2016 10:29 AM CDT Temperature - - Respiratory Rate - - Oxygen Saturation - - Inhaled Oxygen Concentration - - Weight 71.7 kg (158 lb 1.1 oz) 06/26/2016 10:29 AM CDT Height 166.5 cm (5' 5.55) 06/26/2016 10:29 AM CDT Body Mass Index 25.86 06/26/2016 10:29 AM CDT Plan of Treatment Health Maintenance Due Date Last Done Comments Hepatitis C Screening 1945 Office Visit for Blood Pressure 1945 Check / Re-check Hepatitis B Vaccines (1 of 3 - 2005 Risk 3-dose series) Depression Screening (Annual 03/02/2021 PHQ-2) Fall Risk Screen (Annual) 03/02/2021 DTaP,Tdap,and Td Vaccines (4 - Td 04/13/2028 04/13/2018, , or Tdap) 08/10/2007, Additional history exists Colonoscopy Discontinued 08/04/2012, 07/06/2009, 08/22/2002 Colorectal Cancer Screening Discontinued Mammogram Discontinued 03/11/2016 (Performed elsewhere), 02/16/2014 (Performed elsewhere), 01/17/2013 (Performed elsewhere), Additional history exists Pneumococcal vaccine (65+ years) Completed 12/10/2017, 10/2015, 04/08/2011, Additional history exists Zoster Vaccines Completed 03/30/2018, 12/10/2017, 04/08/2011, Additional history exists Influenza Vaccine Completed 12/01/2021, 12/26/2020, 12/15/2019, Additional history exists COVID-19 Vaccine Completed 12/10/2021, 06/15/2021, 11/30/2020, Additional history exists CT Colonography Discontinued Cologuard Discontinued FIT Discontinued Medical Devices Implanted Type Area Drilling Superintendent Device Shelf Model / Identifier Expiration Serial / Date Lot Conversions - Default Historical Implant Device Cardiac Chest Implanted: 06/26/2016 (Quantity not on file) Stent Description: Body Location - Chest. Aviva ce Status Text - Cardiac. Insurance Payer Benefit Plan Subscriber ID Effective Phone Address Typ e / Group Dates MEDICARE MEDICARE A [id number] 2010-Prese [address] [place] [address] FOR FOR [id number] 2019-Prese [phone] [address] Indemnity LIFE LIFE nt [address] [place] [address] (Home) [place] [address]
--- OUTSIDE RECORDS SUMMARY | 2021-12-25 14:13 | XMS_ITS | Encounter Summary ---
:1945 Author Organization [facility] Address [address] [place] [address] Care Team Providers Name Role Phone Unavailable Primary Care Provider Unavailable Encounter Details Date Type Department Care Team Description 06/22/2010 Hospital Encounter HX [facility] Sukh Dhaliwal M.D. [address] [address] [place] [phone] (Wo rk) Social History Tobacco Use Types [...] More than 4 times per year 07/24/2020 christian services? Do you belong to any clubs [...] place to sleep or slept in a [place] [facility] [place] (including now)? Sex Assigned at Date Recorded Not on file documented as of this encounter Progress Notes Sukh Fang M.D. - 06/22/2010 12:31 PM CDT EC DATE OF SERVICE: 06/22/2010 REASON FOR VISIT This 64-year-old female was seen on 06/22/2010 with urinary frequency and some pain in her suprapubic area that she calls cramping. HISTORY OF PRESENT ILLNESS She is spending a [place] Patient denies seeing any blood in the urine. No pain in her lower back. MEDICATIONS Reviewed. ALLERGIES SULFA. EXAMINATION VITALS: Reviewed. DIAGNOSTIC DATA Urinalysis: Positive for infection. Culture was sent as well. IMPRESSION/REPORT/PLAN Urinary tract infection. I will use Cipro for 7 days. The patient is instructed to come back if her symptoms worsen or if shedoes not improve. I will notify her about the urine culture results. GDD:tjl Doc#: [id number] cc: Electronically Signed By: SUKH FANG MD On: 06/26/2010 05:36 Source: [facility] ISJDICTAPHONESYS Document Id: [id number] documented in this encounter Miscellaneous Notes Miscellaneous - Sukh Fang M.D. - 06/22/2010 1:01 PM CDT Ambulatory Patient Summary [facility] - [place] [id number] Visit Information Name: ORLIN NUNEZ Current Date: 06/22/2010 13:01:07 Primary Care Provider: PCP, UNASSIGNED Your Medications Here is a list of your medications. It is important to take your medications as directed. Use a pillbox or chart to help remind you to take your medications. Please let your doctor or nurse know if you have problems taking your medications. Medication/Strength Dose Route Frequency Indications/Special Instructions/Comments ciprofloxacin (Cipro 500 mg oral tablet) 500 mg Oral two times a day for 7 Days alendronate (Fosamax 70 mg oral tablet) 1 tab(s) Oral every week Take 30min before 1st food or drink(other than water) of the day. Do not lie down until after 1st food multivitamin with minerals (Vitamin D with Minerals oral tablet) 1 tab(s) Oral once a day 2000 mg metformin (metformin 500 mg oral tablet, extended release) 2 tab(s) Oral Daily Supper aspirin (aspirin 81 mg oral tablet) 1 tab(s) Oral once a day lansoprazole (Prevacid SoluTab 30 mg oral tablet, disintegrating) 1 tab(s) Oral once a day gabapentin (gabapentin 600 mg oral tablet) 1 tab in AM and 2 tabs in PM Oral two times a day pravastatin (pravastatin 40 mg oral tablet) 1 tab(s) Oral once a day atenolol (atenolol 25 mg oral tablet) 1 tab(s) Oral two times a day Your Allergies & Intolerances Substance Reaction Symptoms Category Comments sulfa drugs Rash Drug sulfa drugs hives Drug Latex hives Drug Your Problem List Problem Status Onset Comments No Problems found Your Recommendations We want to make sure you get the tests, immunizations, and guidance you need to stay healthy. Here is a customized list of recommendations, based on information we have in your medical record. Your doctor may have additional recommendations for you, based on your personal medical history and risk factors. You can help us by calling us to make an appointment when you are due for your tests. Additional information regarding recommendations: Test/Treatment Last Done Next Due Additional Information Screening Colonoscopy or Flex Sig or Barium Enema or Occult Blood X3 06/22/2010 Checks for signs of cancer of the colon. Screening Mammogram every 1 year Women 40-75 06/22/2010 X-rays of breast to check for breast cancer. Screening Pap Smear every 3 years Women 21-65 06/22/2010 Checks for signs of cancer of the cervix. Lipid Panel every 5 years Age 20-75 06/22/2010 Checks blood for good (HDL) and bad (LDL) cholesterol. Know your numbers, they are one indicator of your risk for heart attack and stroke. Vaccine: Flu every 1 year 06/22/2010 Immunization to help prevent you from getting the flu strain expected to be a problem for that year's flu season. Vaccine: Tetanus every 10 years 06/22/2010 Immunization to help prevent you from getting the seriousdisease Tetanus (Lockjaw). Your Upcoming Appointments Date Time Location Reason Provider No Appointments found Your Goals/Additional instructions: Source: [facility] POWERCHART Document Id: [id number] Electronically signed by Lokes[place], [facility] Automatic Lump Making Machine Tender [id number] at 08/03/2016 11:32 AM CDT Miscellaneous - Sukh Fang M.D. - 06/22/2010 1:01 PM CDT Ambulatory Depart Summary [facility] - [address] [place] [address] Visit Information Name: ORLIN NUNEZ Current Date: 06/22/2010 13:01:07 Primary Care Provider: PCP, UNASSIGNED ORLIN NUNEZ has been given the following list of medications: Your Medications It is important to take your medications as directed. Use a pill box or chart to help remind you to take your medications. Please let your doctor or nurse know if you have problems taking your medications. Medication/Strength Dose Route Frequency Indications/Special Instructions/Comments ciprofloxacin (Cipro 500 mg oral tablet) 500 mg Oral two times a day for 7 Days alendronate (Fosamax 70 mg oral tablet) 1 tab(s) Oral every week Take 30min before 1st food or drink(other than water) of the day. Do not lie down until after 1st food multivitamin with minerals (Vitamin D with Minerals oral tablet) 1 tab(s) Oral once a day 2000 mg metformin (metformin 500 mg oral tablet, extended release) 2 tab(s) Oral Daily Supper aspirin (aspirin 81 mg oral tablet) 1 tab(s) Oral once a day lansoprazole (Prevacid SoluTab 30 mg oral tablet, disintegrating) 1 tab(s) Oral once a day gabapentin (gabapentin 600 mg oral tablet) 1 tab in AM and 2 tabs in PM Oral two times a day pravastatin (pravastatin 40 mg oral tablet) 1 tab(s) Oral once a day atenolol (atenolol 25 mg oral tablet) 1 tab(s) Oral two times a day Additional Information: Yes - Current list of reconciled medications is provided and explained to the patient and/or family, guardian/caregiver. Source: [facility] POWERCHART Document Id: [id number] Electronically signed by Lokesh, [facility] Automatic Lump Making Machine Tender [id number] at 08/03/2016 11:32 AM CDT Miscellaneous - Conversion, Historical Provider Ser - 06/22/2010 12:49 PM CDT Ambulatory Vitals Height Weight Ambulatory Vitals Height Weight Entered On: 06/22/2010 12:50 CDT Performed On: 06/22/2010 12:49 CDT by ABIGAIL MADDEN LPN Vitals/Ht/Wt Systolic Blood Pressure: 144mmHg (HI) Diastolic Blood Pressure: 78mmHg NIBP Mean: 100mmHg BP Location: Left upper extremity ABIGAIL MADDEN LPN - 06/22/2010 12:49 CDT Source: [facility] [employer].comCHART Document Id: [id number] CDT!6 Miscellaneous - Conversion, Historical Provider Ser - 06/22/2010 12:45 PM CDT Adult Dry Cleaning Machine Operator Intake/History Document Has Been Updated 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 Dry Cleaning Machine Operator Intake/History Entered On: 06/22/2010 12:48 CDT Performed On: 06/22/2010 12:45 CDT by ABIGAIL MADDEN LPN Intake Chief Complaint: pelvic cramping and urinary freq Onset of Symptoms: this morning Temperature Core: 36.2C(Converted to: 97.2DegF) (LOW) Peripheral Pulse Rate: 62/min Respiratory Rate: 16/min Systolic Blood Pressure: 142mmHg (HI) Diastolic Blood Pressure: 80mmHg NIBP Mean: 101mmHg ABIGAIL MADDEN LPN - 06/22/2010 12:45 CDT BP Location: Left upper extremity ABIGAIL MADDEN LPN - 06/22/2010 12:48 CDT General Info Information Given By: Patient Preferred Communication Mode: Verbal Languages: Nicaraguan ABIGAIL MADDEN LPN - 06/22/2010 12:45 CDT Subjective Pain Symptoms: No ABIGAIL MADDEN LPN - 06/22/2010 12:45 CDT Dependent Habits Tobacco Use/Currently Using: No Tobacco Use/Last 12 months: No Tobacco Use/Advised to Quit: No Exposure to Tobacco Smoke: Other: pt is a non smoker, quit ABIGAIL MADDEN LPN - 06/22/2010 12:45 CDT Allergies Allergies (Active) Latex Estimated Onset Date: Unspecified ; Reactions: hives ; Created By: ABIGAIL MADDEN LPN; Reaction Status: Active ; Category: Drug ; Substance: Latex ; Type: Allergy ; Updated By: ABIGAIL MADDEN LPN; Reviewed Date: 06/22/2010 12:42 CDT sulfa drugs Estimated Onset Date: Unspecified ; Reactions: Rash, hives ; Created By: ABIGAIL MADDEN LPN; Reaction Status: Active ; Category: Drug ; Substance: sulfa drugs ; Type: Allergy ; Updated By: ABIGAIL MADDEN LPN; Reviewed Date: 06/22/2010 12:42 CDT Source: [facility] A [employer] Document Id: [id number] CDT!3 documented in this encounter Plan of Treatment Not on filedocumented as of this encounter Visit Diagnoses Not on filedocumented in this encounter
--- OUTSIDE RECORDS SUMMARY | 2021-12-25 14:13 | XMS_ITS | Encounter Summary ---
:1945 Author Organization [facility] Address [address] [place] [address] Care Team Providers Name Role Phone Unavailable Primary Care Provider Unavailable Reason for Visit Appointment Request (Routine) - Closed Specialty Diagnoses / Procedures Referred By Contact Refer red To Contact Nephrology and Hypertension Referral ID Status Reason Start Date Expiration Date Visits Requ ested Visits Authorized [id number] Closed 08/01/2021 08/01/2022 1 Encounter Details Date Type Department Care Team Description 08/13/2021 External Outreach Division of [place], Hypertensi on And Chronic Kidney Disease Stage 1 (Primary Dx); Nephrology and King Buchanan Jr., Sjogren's (S icca) Syndrome (HCC); Hypertension in D.O. Proteinuria; [place], [place] [address] [facility] Hyperlipidemia [address] [place] [phone] Social History Tobacco Use Types Packs/Day Years [...] or relatives? How often do you attend faith or More than 4 times per year 07/24/2020 hoahaoism services? Do you belong to any clubs or Yes 07/24/2020 organizations such as faith groups, unions, fraternal or athletic groups, or [...] slept in a senior living (including now)? Education Answer Date Recorded What is the highest level of school you have completed or 12 th grade 07/24/2020 the highest degree you have received? Sex Assigned at Date Recorded Not on file documented as of this encounter Progress Notes King Garza Jr. D.O. - 08/13/2021 11:30 AM CDT Please see scanned in note under document viewer tab for the [facility] [place] outreach visit from this date. Medical Problems Diagnosis List Myocardial Infarction Old Overview Deleted 04/30/2017 11:31 AM by Conversion, Rst Problem List [id number] Hyperlipidemia Hypertension And Chronic Kidney Disease Stage 1 Cancer Breast Personal History Sjogren's (Sicca) Syndrome (HCC) Proteinuria documented in this encounter Plan of Treatment Not on filedocumented as of this encounter Visit Diagnoses Diagnosis Hypertension And Chronic Kidney Disease Stage 1 - Primary Sjogren's (Sicca) Syndrome (HCC) Proteinuria Hyperlipidemia documented in this encounter
--- OUTSIDE RECORDS SUMMARY | 2021-12-25 14:13 | XMS_ITS | Encounter Summary ---
:1945 Author Organization [facility] Address [address] [place] [address] Care Team Providers Name Role Phone Unavailable Primary Care Provider Unavailable Reason for Visit Appointment Request (Routine) - Closed Specialty Diagnoses / Procedures Referred By Contact Refer red To Contact Nephrology and Hypertension Referral ID Status Reason Start Date Expiration Date Visits Requ ested Visits Authorized [id number] Closed 06/15/2020 06/15/2021 1 1 Encounter Details Date Type Department Care Team Description 08/01/2020 External Outreach Division of Greg, Hypertensi on And Chronic Kidney Disease Stage 1 (Primary Dx); Nephrology and King Buchanan Jr., Proteinuria; Hypertension in D.O. Sjogren's (Sicca) Syndrome (HCC) [place], [place] [address] [facility] [address] [place] [phone] Social History Tobacco Use Types Packs/Day Years [...] or relatives? How often do you attend restoration or More than 4 times per year 07/24/2020 uatsdin services? Do you belong to any clubs or Yes 07/24/2020 organizations such as restoration groups, unions, fraternal or athletic groups, or [...] slept in a senior care (including now)? Education Answer Date Recorded What is the highest level of school you have completed or 12 th grade 07/24/2020 the highest degree you have received? Sex Assigned at Date Recorded Not on file documented as of this encounter Progress Notes King Garza Jr., D.O. - 08/01/2020 12:00 PM CDT Please see scanned in note under document viewer tab for the [facility] outreach visit from this date. documented in this encounter Plan of Treatment Not on filedocumented as of this encounter Visit Diagnoses Diagnosis Hypertension And Chronic Kidney Disease Stage 1 - Primary Proteinuria Sjogren's (Sicca) Syndrome (HCC) documented in this encounter
--- OUTSIDE RECORDS SUMMARY | 2021-12-25 14:13 | XMS_ITS | Encounter Summary ---
:1945 Author Organization [facility] Address [address] [place] [address] Care Team Providers Name Role Phone Unavailable Primary Care Provider Unavailable Encounter Details Date Type Department Care Team Description 07/24/2020 Hospital Encounter Department of Teodoro, Vineet Pain Shoulder Left Radiology, Frederick Paulino M.D. [facility], in [address] [place] [address] [address] [place] [address] [place], [place] (Work) [phone] Social History Tobacco Use Types Packs/Day Years [...] or relatives? How often do you attend hindu or More than 4 times per year 07/24/2020 rastafarian services? Do you belong to any clubs or Yes 07/24/2020 organizations such as hindu groups, unions, fraternal or athletic groups, or [...] a [place] [facility] (including now)? Education Answer Date Recorded What is the highest level of school you have completed or 12 th grade 07/24/2020 the highest degree you have received? Sex Assigned at Date Recorded Not on file documented as of this encounter Plan of Treatment Not on filedocumented as of this encounter Procedures Procedure Name Priority Date/Time Associated Comments Diagnosis DX SHOULDER LEFT RAD - Routine 07/24/2020 9:40 Pain Shoulder Result s for this 2+ VIEWS (most inpatients AM CDT Left procedure a re in and all the results outpatients) section. documented in this encounter Results DX Shoulder Left 2+ [...] tuberosity. Slightly narrowed luna bacromial space. Vineet Valerio M.D. [facility] documented in this encounter Visit Diagnoses Diagnosis Pain Shoulder Left documented in this encounter
--- OUTSIDE RECORDS SUMMARY | 2021-12-25 14:13 | XMS_ITS | Encounter Summary ---
:1945 Author Organization [facility] Address [address] [place] [address] Care Team Providers Name Role Phone Unavailable Primary Care Provider Unavailable Reason for Referral Outpatient (Routine) - Closed Specialty Diagnoses / Procedures Referred By Contact Refer red To Contact Diagnoses Pain Shoulder Left Vineet Valerio M.D. [facility] Procedures ORS US-Guided aspiration/injection [address] [place] [id number] Referral ID Status Reason Start Date Expiration Date Visits Requ ested Visits Authorized [id number] Closed 07/24/2020 07/24/2021 1 1 Reason for Visit Reason Comments Pain Outpatient (Routine) - Closed Specialty Diagnoses / Procedures Referred By Contact Refer red To Contact Orthopedic Surgery Diagnoses Pain Shoulder Left Gumaro Powell Celeste Komal Chavez [address] [place] [address] Referral ID Status Reason Start Date Expiration Date Visits Requ ested Visits Authorized [id number] Closed 07/17/2020 07/17/2021 1 1 Encounter Details Date Type Department Care Team Description 07/24/2020 Comprehensive Visit Department of Junior Avila Pain Shoulder Left Orthopedic Surgery in Kathy Paulino [place], [place] [address] [facility] [address] [place] [phone] [phone] Social History Tobacco Use Types Packs/Day Years [...] or relatives? How often do you attend bahai or More than 4 times per year 07/24/2020 mu-ism services? Do you belong to any clubs or Yes 07/24/2020 organizations such as bahai groups, unions, fraternal or athletic groups, or [...] documented as of this encounter Consult Notes Junior Avila M.D. - 07/24/2020 10:45 AM CDT SUBJECTIVE No referring provider defined for this encounter. CHIEF COMPLAINT/PURPOSE OF VISIT Mayra Quinn is a pleasant 74 y.o. female who presents for evaluation of left shoulder pain. HISTORY OF PRESENT ILLNESS They note ongoing pain over the shoulder region. The patient has tried the following modalities: ?? Injections: no ?? Surgery: no OBJECTIVE PHYSICAL EXAMINATION General: Patient is in no acute distress. Shoulder ROM: ?? Active elevation is 100 ?? Passive elevation is 120 ?? External rotation to 20 ?? Internal rotation to Iliac crest Strength: ?? Flexion 5 ?? Abduction 4 ?? External rotation 4- ?? Internal rotation 4 Neer Test: yes Hodgson Test: yes Pain with resisted abduction: yes There is no AC joint tenderness. Negative cross-body adduction test. The shoulder is stable on examination. ASSESSMENT / PLAN IMAGING STUDIES Imaging demonstrates mild degenerative changes DIAGNOSIS #1 Examination consistent with impingement syndrome We did discuss treatment options. We discussed operative and non-operative measures. We discussed the possibility of an injection. The patient would like to proceed with injection. Will order this for the patient today. If the patient continues to have pain they were advised to contact my epic application coordinator to schedule an MRI. All questions answered. The patient was told to contact the service with any questions or concerns at any time. documented in this encounter Plan of Treatment Not on filedocumented as of this encounter Results ND ARTHCS ASP/INJ MJR JT W US (07/24/2020 [...] note. Images h ave been archived in [employer]: click the 'Dept Filter' button in [employer], then the 'Clear (Show All)' button, then [...] encounter Visit Diagnoses Diagnosis Pain Shoulder Left Pain Shoulder Left documented in this encounter
--- OUTSIDE RECORDS SUMMARY | 2021-12-25 14:13 | XMS_ITS | Encounter Summary ---
:1945 Author Organization [facility] Address [address] [place] [address] Care Team Providers Name Role Phone Unavailable Primary Care Provider Unavailable Encounter Details Date Type Department Care Team Description 12/26/2020 Orders Only RST PCP [facility] Tamica Lujan M.D. [address] [place] [address] [phone] (Wo rk) Social History Tobacco [...] or relatives? How often do you attend buddhism or More than 4 times per year 07/24/2020 yarsani services? Do you belong to any clubs or Yes 07/24/2020 organizations such as buddhism groups, unions, fraternal or athletic groups, or [...] place to sleep or slept in a skilled nursing (including now)? Education Answer Date Recorded What [...]
--- OUTSIDE RECORDS SUMMARY | 2021-12-25 14:13 | XMS_ITS | Encounter Summary ---
:1945 Author Organization [facility] Address [address] [place] [address] Care Team Providers Name Role Phone Unavailable Primary Care Provider Unavailable Encounter Details Date Type Department Care Team Description 07/08/2017 [facility] AND SherryReyes barcenas [facility] Kathy [address] [place] [address] [facility] [place] [address] [place] [address] (Wo rk) Social History Tobacco Use Types [...] place to sleep or slept in a prison (including now)? Sex Assigned at Date Recorded Not on file documented as of this encounter Plan of Treatment Not on filedocumented as of this encounter Visit Diagnoses Not on filedocumented in this encounter
--- OUTSIDE RECORDS SUMMARY | 2021-12-25 14:14 | XMS_ITS | Encounter Summary ---
:1945 Author Organization [facility] Address [address] [place] [address] Care Team Providers Name Role Phone Unavailable Primary Care Provider Unavailable Encounter Details Date Type Department Care Team Description 08/23/2002 Hospital Encounter HX NO MAPPING Social History [...] or relatives? How often do you attend lutheran or More than 4 times per year 07/24/2020 alevism services? Do you belong to any clubs or Yes 07/24/2020 organizations such as lutheran groups, unions, fraternal or athletic groups, or [...] place to sleep or slept in a residential (including now)? Sex Assigned at Date Recorded Not on file documented as of this encounter Plan of Treatment Not on filedocumented as of this encounter Procedures Procedure Name Priority Date/Time Associated Diagnosis Comme nts BMD BONE DENSITY Routine 08/23/2002 1:31 PM Resul ts for this SPINE HIPS CDT procedure are i n the results section. ECG Routine 08/23/2002 9:53 AM Results f or this CDT procedure are i n the results section. documented in this encounter Results BMD Bone Density Spine Hips (08/23/2002 1:31 PM CDT) Anatomical Region Laterality Modality Hip, Lumbar Spine N/A Radiographic Imaging Specimen (Source) Anatomical Collection Method Collection Time Re ceived Time Location / / Volume Laterality 08/23/2002 1:31 PM CDT Narrative 08/23/2002 2:31 PM CDT 23-Aug-2002 13:31:00 ??Exam: NM BMD Spine and/or Hip(s) Indications: dizziness; hx of breast can cer ORIGINAL REPORT - 23-Aug-2002 14:31:00 Lumbar Spine: ?? L1: BMD = 0.88 g/cm(sq), T Score = - 2.1, Z Score = -1.8 ?? L2: BMD = 0.92 g/cm(sq), T Score = - 2.3, Z Score = -2.0 ?? L4: BMD = 0.91 g/cm(sq), T Score = - 2.4, Z Score = -2.1 ?? TOTAL BMD = 0.90 g/cm(sq), ??(3rd pe rcentile) ?T Score = -2.2 ?Z Score = -1.9 ?? Osteoporosis is established when the T Score is below -2.50. ELECTRONIC IMAGES ONLY Left Hip: ?FEMUR NECK: BMD = 0.91 g/cm (sq ) ??(46th percentile) ?T Score = -0.6 ?Z Score = -0.1 ?Osteoporosis is established whe n the T Score is below -2.50. Additional FEMUR measurements listed bel ow: ?? TROCH: BMD = 0.80 g/cm(sq) ??(50th p ercentile) ?T Score = 0.1 ?Z Score = 0.0 ?? INTER: BMD = 1.21 g/cm(sq) ?? SOLIZ'S: BMD = 0.73 g/cm(sq) ??(34th percentile) ?T Score = -1.4 ?Z Score = -0.4 ?? TOTAL BMD = 0.99 g/cm(sq), ??(54th p ercentile) ?T Score = -0.2 ?Z Score = 0.1 ELECTRONIC IMAGES ONLY Electronically signed by: ?? Terri Barkley MD ??[id number] 23-Aug-2002 14:3 1 Procedure Note Andrea Barkley M.D. - 06/09/2017Formatt ing of this note might be different from the original. 23-Aug-2002 13:31:00 Exam: NM BMD Spine and/or Hip(s) Indications: dizziness; hx of breast can cer ORIGINAL REPORT - 23-Aug-2002 14:31:00 Lumbar Spine: L1: BMD = 0.88 g/cm(sq), T Score = -2.1 , Z Score = -1.8 L2: BMD = 0.92 g/cm(sq), T Score = -2.3 , Z Score = -2.0 L4: BMD = 0.91 g/cm(sq), T Score = -2.4 , Z Score = -2.1 TOTAL BMD = 0.90 g/cm(sq), (3rd percent ile) T Score = -2.2 Z Score = -1.9 Osteoporosis is established when the T Score is below -2.50. ELECTRONIC IMAGES ONLY Left Hip: FEMUR NECK: BMD = 0.91 g/cm (sq) (46th percentile) T Score = -0.6 Z Score = -0.1 Osteoporosis is established when the T Score is below -2.50. Additional FEMUR measurements listed bel ow: TROCH: BMD = 0.80 g/cm(sq) (50th percen tile) T Score = 0.1 Z Score = 0.0 INTER: BMD = 1.21 g/cm(sq) SOLIZ'S: BMD = 0.73 g/cm(sq) (34th perce ntile) T Score = -1.4 Z Score = -0.4 TOTAL BMD = 0.99 g/cm(sq), (54th percen tile) T Score = -0.2 Z Score = 0.1 ELECTRONIC IMAGES ONLY Electronically signed by: Terri Barkley MD [id number] 23-Aug-2002 14:31 Radha Ledbetter APRN C.N.P. [facility] ECG 12 Lead (08/23/2002 9:53 AM CDT) Specimen (Source) Anatomical Collection Method Collection Time Re ceived Time Location / / Volume Laterality 08/23/2002 9:53 AM CDT [facility] - 08/23/2002 10:07 AM CDT 23Aug2002 09:53 VENTRICULAR RATE 60 Normal sinus rhythm Normal ECG When compared with ECG of 09-MAR-1997 09 :37, No significant change was found [id number]^BROOK ??^ANTHONY Procedure Note Anthony Faye M.D. - 05/25/2017Format ting of this note might be different from the original. 23Aug2002 09:53 VENTRICULAR RATE 60 Normal sinus rhythm Normal ECG When compared with ECG of 09-MAR-1997 09 :37, No significant change was found [id number]^BROOK BARRIENTOS^ANTHONY Historical Provider ECG ORDERABLES Performing Organization Address City/State/ZIP Code Phon e Number [facility]X [facility] [address] [place] [address], [place] documented in this encounter Visit Diagnoses Not on filedocumented in this encounter
--- OUTSIDE RECORDS SUMMARY | 2021-12-25 14:14 | XMS_ITS | Encounter Summary ---
:1945 Author Organization [facility] Address [address] [place] [address] Care Team Providers Name Role Phone Unavailable Primary Care Provider Unavailable Encounter Details Date Type Department Care Team Description 08/22/2002 Hospital Encounter HX NO MAPPING Social History [...] More than 4 times per year 07/24/2020 bahai services? Do you belong to any clubs [...] place to sleep or slept in a detention (including now)? Sex Assigned at Date Recorded Not on file documented as of this encounter Plan of Treatment Not on filedocumented as of this encounter Procedures Procedure Name Priority Date/Time Associated Diagnosis Comme nts NM BONE SCAN WHOLE Routine 08/22/2002 3:32 PM Res ults for this BODY CDT procedure are i n the results section. MR BRAIN WITHOUT Routine 08/22/2002 2:50 PM Resul ts for this AND WITH IV CDT procedure are i n CONTRAST the results section. HXGENERAL PATHOLOGY Routine 08/22/2002 10:24 AM R esults for this REPORT CDT procedure are i n the results section. documented in this encounter Results NM Bone Whole Body (08/22/2002 3:32 PM CDT) Anatomical Region Laterality Modality Whole body N/A Nuclear Medicine Specimen (Source) Anatomical Collection Method Collection Time Re ceived Time Location / / Volume Laterality 08/22/2002 3:32 PM CDT Narrative 08/22/2002 3:43 PM CDT 22-Aug-2002 15:32:00 ??Exam: NM Bone Scn WB Indications: elevated alkaline phosphata se ??hx of breast cancer ORIGINAL REPORT - 22-Aug-2002 15:43:00 Whole body bone scan: Mild diffusely inc reased uptake in the calvarium which is not entirely specific, but suggests the possibility of metabolic bone disease. No evidence of skeletal metastases. ?? 99mTc MDP ??19.01 mCi Electronically signed by: ?? Khushboo Moffett MD. ??[id number] 22-Aug-2002 15 :43 Procedure Note Radha Moffett M.D. - 06/09/2017Formatt ing of this note might be different from the original. 22-Aug-2002 15:32:00 Exam: NM Bone Scn W B Indications: elevated alkaline phosphata se hx of breast cancer ORIGINAL REPORT - 22-Aug-2002 15:43:00 Whole body bone scan: Mild diffusely inc reased uptake in the calvarium which is not entirely specific, but suggests the possibility of metabolic bone disease. No evidence of skeletal metastases. 99mTc MDP 19.01 mCi Electronically signed by: Khushboo Moffett MD. [id number] 22-Aug-2002 15:4 3 Radha Ledbetter APRN C.N.P. [facility] PROCEDURES MR Brain without and with IV Contrast (08/22/2002 2:50 PM CDT) Anatomical Region Laterality Modality Head, Brain N/A Magnetic Resonance Specimen (Source) Anatomical Collection Method Collection Time Re ceived Time Location / / Volume Laterality 08/22/2002 2:50 PM CDT Narrative 08/22/2002 4:53 PM CDT 22-Aug-2002 14:50:00 ??Exam: MRI Hd wo&w Indications: mri head/brain^dizziness,hx of breast ca ORIGINAL REPORT - 22-Aug-2002 16:53:00 MRI head without and with intravenous co ntrast with diffusion images. There is a small area of T2 signal hyperintensity adjacent to the frontal horn of the left lateral ventricle. There is a no associat ed mass effect or T2 signal hyperintensi ty. The remainder of the head is normal. The remainder of the brain is normal. No evidence of acute of subacute infarct on diffusion images. No evidence of metastatic disease. ?? This area of T2 hyperintensity in the le ft frontal lobe white matter is nonspecific. It could represent also an area of demyelination such as multiple sclerosis or ADEM, or a late subacute infarct. It w ould be unusual for this to be a focus o f metastasis without mass effect or contrast enhancement. Ind: 115.999 ?? Dia.[id number] ?? Electronically signed by: ?? Khushboo Juares M.D. [id number] 22-Aug-2002 16:53 Procedure Note Andrea Juares M.D., Ph.D. - 06/09/2017Fo rmatting of this note might be different from the original. 22-Aug-2002 14:50:00 Exam: MRI Hd wo&w Indications: mri head/brain^dizziness,hx of breast ca ORIGINAL REPORT - 22-Aug-2002 16:53:00 MRI head without and with intravenous co ntrast with diffusion images. There is a small area of T2 signal hyperintensity adjacent to the frontal horn of the left lateral ventricle. There is a no associated mass effect or T2 signal hyperintensity. The remaind er of the head is normal. The remainder of the brain is normal. No evidence of acute of subacute infarct on diffusion images. No evidence of metastatic disease. This area of T2 hyperintensity in the le ft frontal lobe white matter is nonspecific. It could represent also an area of demyelination such as multiple sclerosis or ADEM, or a late subacute infarct. It would be unusual for this to be a focus of metast asis without mass effect or contrast enhancement. Ind: 115.999 Dia.519 Electronically signed by: Khushboo Juares M.D. [id number] 22-Aug-2002 16:53 Radha Ledbetter APRN C.N.P. [facility] PROCEDURES Hx general Pathology Report (08/22/2002 10:24 AM CDT) Specimen Anatomical Collection Method Collection Time Receive d Time (Source) Location / / Volume Laterality 08/22/2002 10:24 08/22/2002 AM CDT 10:24 AM CDT Narrative [facility] - 08/22/2002 10:24 AM CDT ?08/22/2002 General Biopsy ? ([id number]) ? Requested By: ??Sarabjit Epps ??[phone] ?? Additional Physician: ??Reese dee M.D. [id number] ? TISSUE DESCRIPTION: [id number] A1 ?? A. ??Hepatic flexure transverse rectum, Colon biopsy: ??(6 pieces 0.1 - 0.5 cm. in diameter) ?DIAGNOSIS: ?? Colon, hepatic flexure/transverse/rectu m, endoscopic biopsy: ?? Colonic mucosa with focal active inflam mation and ischemic injury. Infection and NSAID-associated injury c an also produce ischemic changes. ??Separate fragments of normal colonic mucosa are also present. ? 08/23/02 ??Madelaine Rodrigez M.D. [phone] ? Procedure Note 05/23/2017 08/22/2002 General Biopsy ([id number]) Requested By: Salome Epps [id number] Additional Physician: Reese Mars M.D. [id number] TISSUE DESCRIPTION: [id number] A1 A. Hepatic flexure transverse rectum, C olon biopsy: (6 pieces 0.1 - 0.5 cm. in diameter) DIAGNOSIS: Colon, hepatic flexure/transverse/rectu m, endoscopic biopsy: Colonic mucosa with focal active inflam mation and ischemic injury. Infection and NSAID-associated injury c an also produce ischemic changes. Separate fragments of normal c olonic mucosa are also present. 08/23/02 Madelaine Rodrigez M.D. [phone] Historical Provider LAB PATHOLOGY/CYTOLOGY ORDER HIRAM Performing Organization Address City/State/ZIP Code Phon e Number [facility] - [address] [place], [place] [address] [facility] documented in this encounter Visit Diagnoses Not on filedocumented in this encounter
== END 2021-12-25 14:03 | disposition home or self-care (01) ==
LOC: US 14:05
PROVIDERS: PCP Internal Medicine; Visit Provider Family Medicine
DX: M79.89 Other specified soft tissue disorders (principal)
CPT/HCPCS: 93971

== ENCOUNTER 2022-02-03 14:03 | Outpatient (CLI) | payer MEDICARE, OTHER, SELFPAY ==
--- OUTSIDE RECORDS SUMMARY | 2022-02-03 08:01 | XMS_ITS | Clinical Summary ---
:1945 Author Organization [facility] Address [address] [place] [address] Care Team Providers Name Role Phone Unavailable Primary Care Provider Unavailable Source Comments Patient records contain information from all sites at [facility]. For routine questions regarding patient records, call [phone] during business hours, M-F 8:00 AM - 5:00 PM Central Time. 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 02/03/2022 Orders Only Physical Medicine and Depompnirav Lymphe rakan Post Mastectomy (Primary Dx); Rehabilitation King Paulino M.D. Edema; Diabetes Mellit us Type 2 With Other Complication (HCC); Diabetes Mellit us Type 2 Without Complication (HCC) 01/16/2022 Clinical Physical Medicine and Bee, Communication Rehabilitation King Paulino M.D. 01/08/2022 Community Orders Helgen, Lymphedema Post Soo Ag M.D. (Primary Dx) from Last 3 Months Immunizations Name Administration Dates Next Due HZV [...] or relatives? How often do you attend gnosticism or More than 4 times per year 07/24/2020 uatsdin services? Do you belong to any clubs or Yes 07/24/2020 organizations such as gnosticism groups, unions, fraternal or athletic groups, or [...] place to sleep or slept in a fci (including now)? Education Answer Date Recorded What [...] FIT Discontinued Medical Devices Implanted Type Area Supervisor Trust Accounts Device Shelf Model / Identifier Expiration Serial / Date Lot Conversions - Default Historical Implant Device Cardiac Chest Implanted: 06/26/2016 (Quantity not on file) Stent Description: Body Location - Chest. Aviva ce Status Text - Cardiac. Insurance Payer Benefit Plan Subscriber ID Effective Phone Address Typ e / Group Dates MEDICARE MEDICARE A [id number] 2010-Prese [address] [place] [address] FOR FOR [id number] 2019-Prese [phone] [address] Indemnity LIFE LIFE nt [address] [place] [address] ([place]) [place] [address]
--- OUTSIDE RECORDS SUMMARY | 2022-02-03 08:02 | XMS_ITS | Encounter Summary ---
:1945 Author Organization [facility] Address [address] [place] [address] Care Team Providers Name Role Phone Unavailable Primary Care Provider Unavailable Encounter Details Date Type Department Care Team Description 09/06/2015 Hospital Encounter HX [facility] Trino Elliott M.D. [address] [place] [address] [phone] (Wo rk) Social History Tobacco [...] or relatives? How often do you attend yarsani or More than 4 times per year 07/24/2020 holiness services? Do you belong to any clubs or Yes 07/24/2020 organizations such as yarsani groups, unions, fraternal or athletic groups, or [...] ELLIOTT MD On: 09/06/2015 02:14 PM Source: [facility] MHSDOLBEYNONRADSYS Document Id: [id number] documented in this encounter Miscellaneous Notes Miscellaneous - Conversion, Historical Provider Ser - 09/06/2015 11:59 PM CDT Coding Summary-Paper Based CODING DATE: 09/11/2015 FINAL [facility] STATUS: * Discharged to Home or Self Care PAYOR: Ann Marie ADMIT DX: REASON FOR VISIT DX: FINAL DX: PRINCIPAL: I25.10 Atherosclerotic heart disease of holy cross coronary artery without angina pectoris SECONDARY: R93.1 [...] Revised Date Saved: 09/11/2015 11:08 am Source: [facility] Zattikka Document Id: [id number] Miscellaneous - Lisa Oneill R.N. - 08/14/2015 10:36 AM CDT Patient Education Patient Education Entered On: 08/14/2015 10:37 CDT Performed On: 08/14/2015 10:36 CDT by LISA ONEILL RN Education General Patient Education Powergrid Topics : Other: Verbal and written education provided to patient regarding upcoming stress echocardiogram. Encouraged to call if questions arise. LISA ONEILL RN - 08/14/2015 10:36 CDT Source: [facility] Zattikka Document Id: [id number] CDT!5 documented in this encounter Plan of Treatment Not on filedocumented as of this encounter Visit Diagnoses Not on filedocumented in this encounter
--- OUTSIDE RECORDS SUMMARY | 2022-02-03 08:02 | XMS_ITS | Encounter Summary ---
:1945 Author Organization [facility] Address [address] [place] [address] Care Team Providers Name Role Phone Unavailable [...] or relatives? How often do you attend amish or More than 4 times per year 07/24/2020 scientologist services? Do you belong to any clubs or Yes 07/24/2020 organizations such as amish groups, unions, fraternal or athletic groups, or [...]
--- OUTSIDE RECORDS SUMMARY | 2022-02-03 08:02 | XMS_ITS | Encounter Summary ---
:1945 Author Organization [facility] Address [address] [place] [address] Care Team Providers Name Role Phone Unavailable Primary Care Provider Unavailable Reason for Visit Appointment Request (Routine) - Closed Specialty Diagnoses / Procedures Referred By Contact Refer red To Contact Nephrology and Gumaro Powell Hypertension M.D. [address] [place] [address] Referral ID Status Reason Start Date Expiration Date Visits Requ ested Visits Authorized [id number] Closed 03/30/2019 03/29/2020 1 1 Encounter Details Date Type Department Care Team Description 04/06/2019 External Outreach Division of Candelaria Garza on And Chronic Kidney Disease Stage 1 (Primary Dx); Nephrology and King Buchanan Jr., Sjogren's (S icca) Syndrome (HCC); Hypertension in D.O. Proteinuria; [place], [place] 200 [facility] Myocardial Infarction Old; 200 [place], [place] Cancer Breast Personal Histo ry; [place] [address] Hyperlipidemia [phone] Social History Tobacco Use Types Packs/Day Years [...] or relatives? How often do you attend mormonism or More than 4 times per year 07/24/2020 sabianist services? Do you belong to any clubs or Yes 07/24/2020 organizations such as mormonism groups, unions, fraternal or athletic groups, or [...] slept in a skilled nursing (including now)? Sex Assigned at Date Recorded Not on file documented as of this encounter Consult Notes King Garza Jr. D.O. - 04/06/2019 2:00 PM CST Please see scanned in note under document viewer tab for the [facility] outreach visit from this date. CONSULTANT documented in this encounter Plan of Treatment Not on filedocumented as of this encounter Visit Diagnoses Diagnosis Hypertension And Chronic Kidney Disease Stage 1 - Primary Sjogren's (Sicca) Syndrome (HCC) Proteinuria Myocardial Infarction Old Cancer Breast Personal History Hyperlipidemia documented in this encounter
--- OUTSIDE RECORDS SUMMARY | 2022-02-03 08:02 | XMS_ITS | Encounter Summary ---
:1945 Author Organization [facility] Address [address] [place] [address] Care Team Providers Name Role Phone Unavailable [...] More than 4 times per year 07/24/2020 anabaptism services? Do you belong to any clubs [...] place to sleep or slept in a snf (including now)? Sex Assigned at Date Recorded Not on file documented as of this encounter Plan of Treatment Not on filedocumented as of this encounter Visit Diagnoses Not on filedocumented in this encounter
--- OUTSIDE RECORDS SUMMARY | 2022-02-03 08:02 | XMS_ITS | Encounter Summary ---
:1945 Author Organization [facility] Address [address] [place] [address] Care Team Providers Name Role Phone Unavailable [...] or relatives? How often do you attend voodoo or More than 4 times per year 07/24/2020 mu-ism services? Do you belong to any clubs or Yes 07/24/2020 organizations such as voodoo groups, unions, fraternal or athletic groups, or [...] / Volume Laterality 08/23/2002 9:53 AM CDT [facility] RADIOLOGY SYSTEM - 08/23/2002 10:07 AM CDT 23Aug2002 09:53 VENTRICULAR RATE 60 Normal sinus rhythm Normal ECG When compared with ECG of 09-MAR-1997 09 :37, No significant change was found [id number]^BROOK ??^ANTHONY Procedure Note Anthony Faye M.D. - 05/25/2017Format ting of this note might be different from the original. 23Aug2002 09:53 VENTRICULAR RATE 60 Normal sinus rhythm Normal ECG When compared with ECG of 09-MAR-1997 09 :37, No significant change was found [id number]^BROOK BARRIENTOS^ANTHONY Historical Provider ECG ORDERABLES Performing Organization Address City/State/ZIP Code Phon e Number HX [facility] SYSTEM [address] [place] [address], [place] documented in this encounter Visit Diagnoses Not on filedocumented in this encounter
--- OUTSIDE RECORDS SUMMARY | 2022-02-03 08:02 | XMS_ITS | Encounter Summary ---
:1945 Author Organization [facility] Address [address] [place] [address] Care Team Providers Name Role Phone Unavailable Primary Care Provider Unavailable Reason for Referral Outpatient (Routine) - Authorized Specialty Diagnoses / Referred By Contact Referred To Contact Procedures Physical Medicine and King Gamboa Komal Paulino M.D. [address] [place] [phone] Referral ID Status Reason Start Date Expiration Date Visits V isits Requested Authorized [id number] Authorized 02/03/2022 02/02/2025 1 1 ER CARE WORKER Physical Therapy (Routine) - Authorized Specialty Diagnoses / Procedures Referred By Contact Refer red To Contact Diagnoses Lymphedema Post Mastectomy Edema King Gamboa M.D. [place] Komal Procedures PT or OT eval and treat (first available) [address] [place] [phone] Referral ID Status Reason Start Date Expiration Date Visits V isits Requested Authorized [id number] Authorized 02/03/2022 02/03/2023 99 99 ER CARE WORKER Outpatient (Routine) - Authorized Specialty Diagnoses / Procedures Referred By Contact Refer red To Contact Infectious Diseases Diagnoses Lymphedema Post Mastectomy King Gamboa [place] M.D. [address] [place] [phone] Referral ID Status Reason Start Expiration Visits Visits Date Date Requested Authorized [id number] Authorized Specialty 02/03/2022 02/03/2023 1 1 Services Required ER CARE WORKER Encounter Details Date Type Department Care Team Description 02/03/2022 Orders Only Department of Physical Bee, Lymph edema Post Mastectomy (Primary Dx); Medicine and King Paulino M.D. Edema; Rehabilitation in [address] [place] [address] Diabetes Mellitus Type 2 With Other Comp lication (HCC); [place], [place] Diabetes Mellitus Type 2 Wit hout Complication (HCC) [address] [place] [phone] [place] [address] [phone] Social History Tobacco Use Types Packs/Day Years [...] or relatives? How often do you attend protestant or More than 4 times per year 07/24/2020 methodist services? Do you belong to any clubs or Yes 07/24/2020 organizations such as protestant groups, unions, fraternal or athletic groups, or [...] slept in a nursing home (including now)? Education Answer Date Recorded What is the highest level of school you have completed or 12 th grade 07/24/2020 the highest degree you have received? Sex Assigned at Date Recorded Not on file documented as of this encounter Plan of Treatment Scheduled Orders Name Type Priority Associated Diagnoses Order S chedule Albumin Lab Routine Lymphedema Post Expected: Mastectomy (Approximate), Expires: 2023 Alkaline Phosphatase Lab Routine Lymphedema Post Expe cted: 02/03/2022 Mastectomy (Approximate), Expires: 2023 ALT (Alanine Lab Routine Lymphedema Post Expected: Aminotransferase) Mastectomy (Approxima te), Expires: 2023 AST (Aspartate Lab Routine Lymphedema Post Expected: 02/03/2022 Aminotransferase) Mastectomy (Approxima te), Expires: 2023 CBC with Differential, Lab Routine Lymphedema Post Ex pected: 02/03/2022 Blood Mastectomy (Approximate), Diabetes Mellitus Type 2 Exp ires: 05/05/2023 Without Complication (HCC) Creatinine with Estimated Lab Routine Lymphedema Post Expected: 02/03/2022 GFR Mastectomy (Approximate), Expires: 2023 Potassium Lab Routine Lymphedema Post Expected: Mastectomy (Approximate), Expires: 2023 Sedimentation Rate Lab Routine Lymphedema Post Expect ed: 02/03/2022 Mastectomy (Approximate), Expires: 2023 Sodium Lab Routine Lymphedema Post Expected: Mastectomy (Approximate), Expires: 2023 S-TSH (Thyroid-Stimulating Lab Routine Lymphedema Pos t Expected: 02/03/2022 Hormone - Sensitive) Mastectomy (Approximate), Edema Expires: 2023 Hemoglobin A1c Lab Routine Lymphedema Post Expected: 02/03/2022 Mastectomy (Approximate), Diabetes Mellitus Type 2 Exp ires: 05/05/2023 With Other Complication (HCC) Scheduled Referrals Name Type Priority Associated Order Schedule Diagnoses Infectious Disease - Outpatient Routine Lymphedema Post Expe cted: General consult Referral Mastectomy 02/03/2022 (clinic) (Approximate), Expires: 05/05/2023 Physical Medicine and Outpatient Routine 1 Occu rrences Rehabilitation office Referral starti ng visit (clinic) 02/03/2022 un til 05/05/2023 documented as of this encounter Visit Diagnoses Diagnosis Lymphedema Post Mastectomy - Primary Edema Diabetes Mellitus Type 2 With Other Comp lication (HCC) Diabetes Mellitus Type 2 Without Complic ation (HCC) documented in this encounter
--- OUTSIDE RECORDS SUMMARY | 2022-02-03 08:02 | XMS_ITS | Encounter Summary ---
:1945 Author Organization [facility] Address [address] [place] [address] Care Team Providers Name Role Phone Unavailable Primary Care Provider Unavailable Encounter Details Date Type Department Care Team Description 06/22/2010 Hospital Encounter HX [facility] Skuh Dhaliwal M.D. [address] [address] [place] [phone] (Wo rk) Social History Tobacco Use [...] More than 4 times per year 07/24/2020 mandaeism services? Do you belong to any clubs [...] about the urine culture results. GDD:tjl Doc#: [id number] cc: Electronically Signed By: SUKH FANG MD On: 06/26/2010 05:36 Source: [facility] ISJDICTAPHONESYS Document Id: [id number] documented in this encounter Miscellaneous Notes Miscellaneous - Sukh Fang M.D. - 06/22/2010 1:01 PM CDT Ambulatory Patient Summary [facility] [place] [id number] Visit Information Name: ORLIN NUNEZ Current Date: [...] No Appointments found Your Goals/Additional instructions: Source: [facility] POWERCHART Document Id: [id number] Electronically signed by Lokesh, [facility] Television Maintenance Man [id number] at 08/03/2016 11:32 AM CDT Miscellaneous - Sukh Fang M.D. - 06/22/2010 1:01 PM CDT Ambulatory Depart Summary [facility] - [address] [place] [address] Visit Information Name: ORLIN NUNEZ Current Date: [...] to the patient and/or family, guardian/caregiver. Source: [facility] POWERCHART Document Id: [id number] Electronically signed by Lokesh, [facility] Television Maintenance Man [id number] at 08/03/2016 11:32 AM CDT Miscellaneous - [...] MADDEN LPN - 06/22/2010 12:49 CDT Source: [facility] Right HemisphereCHART Document Id: [id number] CDT!6 Miscellaneous - Conversion, Historical Provider Ser - 06/22/2010 12:45 PM CDT Adult Child Care Teacher Intake/History Document Has Been Updated Adult Child Care Teacher Intake/History Entered On: 06/22/2010 12:48 CDT Performed [...] By: Patient Preferred Communication Mode: Verbal Languages: Lithuanian ABIGAIL MADDEN LPN - 06/22/2010 12:45 CDT [...] LPN; Reviewed Date: 06/22/2010 12:42 CDT Source: [facility] ReliOn Document Id: [id number] CDT!3 documented in this encounter Plan of Treatment Not on filedocumented as of this encounter Visit Diagnoses Not on filedocumented in this encounter
--- OUTSIDE RECORDS SUMMARY | 2022-02-03 08:02 | XMS_ITS | Encounter Summary ---
:1945 Author Organization [facility] Address [address] [place] [address] Care Team Providers Name Role Phone Unavailable Primary Care Provider Unavailable Reason for Referral Outpatient (Routine) - Closed Specialty Diagnoses / Procedures Referred By Contact Refer red To Contact Urology Diagnoses Incontinence Urinary Gumaro Powell M.D. [place] [address] [place] [address] Referral ID Status Reason Start Date Expiration Date Visits Requ ested Visits Authorized [id number] Closed 04/17/2020 04/17/2021 1 1 OMY PROFESSOR Encounter Details Date Type Department Care Team Description 04/17/2020 [facility] Sultana Powell Urinary AND CLINICS Kathy Naik (Primary Dx) [address] [place] [address] [place] [address] [place], [place] [phone] Social History Tobacco Use Types Packs/Day Years [...] place to sleep or slept in a care home (including now)? Sex Assigned at Date [...]
--- OUTSIDE RECORDS SUMMARY | 2022-02-03 08:02 | XMS_ITS | Encounter Summary ---
:1945 Author Organization [facility] Address [address] [place] [address] Care Team Providers Name Role Phone Unavailable Primary Care Provider Unavailable Reason for Referral Outpatient (Routine) - Authorized Specialty Diagnoses / Referred By Contact Referred To Contact Procedures Physical Medicine and Diagnoses Lymphedema [facility] Kathy [address] [place] [address] Referral ID Status Reason Start Date Expiration Date Visits V isits Requested Authorized [id number] Authorized 01/08/2022 01/08/2023 1 1 HT TOWER DISPATCHER Encounter Details Date Type Department Care Team Description 01/08/2022 [facility] Radha Naidu Lymphedema Post AND CLINICS Kathy Barker Mastectomy (Primary 1999 [facility] 1999 [facility]) [place] [address] [phone] Social History Tobacco Use Types Packs/Day Years [...] More than 4 times per year 07/24/2020 jehovah's witness services? Do you belong to any clubs [...] or slept in a [facility] (including now)? Education Answer Date Recorded What is the highest level of school you have completed or 12 th grade 07/24/2020 the highest degree you have received? Sex Assigned at Date Recorded Not on file documented as of this encounter Plan of Treatment Scheduled Referrals Name Type Priority Associated Diagnoses Order S [facility] Outpatient Referral Routine Lymphedema Post Expe cted: Referral Mastectomy 01/08/2022 (Approximate), Expires: 04/10/2023 documented as of this encounter Visit Diagnoses Diagnosis Lymphedema Post Mastectomy - Primary documented in this encounter
--- OUTSIDE RECORDS SUMMARY | 2022-02-03 08:02 | XMS_ITS | Encounter Summary ---
:1945 Author Organization [facility] Address [address] [place] [address] Care Team Providers Name Role Phone Unavailable Primary Care Provider Unavailable Encounter Details Date Type Department Care Team Description 01/16/2022 Clinical Communication Department of Physical Depompol o, Medicine and King Paulino M.D. Rehabilitation in [address] [place] [address] [place] [phone] [place] [address] [phone] Social History Tobacco Use Types Packs/Day Years [...] or relatives? How often do you attend islam or More than 4 times per year 07/24/2020 islam services? Do you belong to any clubs or Yes 07/24/2020 organizations such as islam groups, unions, fraternal or athletic groups, or [...] or slept in a correction (including now)? Education Answer Date Recorded What is the highest level of school you have completed or 12 th grade 07/24/2020 the highest degree you have received? Sex Assigned at Date Recorded Not on file documented as of this encounter Miscellaneous Notes Telephone Encounter - Madelaine Daily 01/16/2022 2:33 PM CST Tho Gray RPS Lymphedema for triage please Lymphedema Post Mastectomy nice letter of referral in doc viewer and records in doc viewer and care everywhere, Appreciate your taking the time to review Kendra PMR Appts Office ERS COMPENSATION SPECIALIST documented in this encounter Plan of Treatment Not on filedocumented as of this encounter Visit Diagnoses Not on filedocumented in this encounter
--- OUTSIDE RECORDS SUMMARY | 2022-02-03 08:02 | XMS_ITS | Encounter Summary ---
:1945 Author Organization [facility] Address [address] [place] [address] Care Team Providers Name Role Phone Unavailable Primary Care Provider Unavailable Reason for Visit Appointment Request (Routine) - Closed Specialty Diagnoses / Procedures Referred By Contact Refer red To Contact Nephrology and Hypertension Referral ID Status Reason Start Date Expiration Date Visits Requ ested Visits Authorized [id number] Closed 06/15/2020 06/15/2021 1 1 Encounter Details Date Type Department Care Team Description 08/01/2020 External Outreach Division of Greg, Hypertensi on And Chronic Kidney Disease Stage 1 (Primary Dx); Nephrology and King Buchanan Jr., Proteinuria; Hypertension in D.O. Sjogren's (Sicca) Syndrome (HCC) [place], [place] [address] [facility] [address] [place] [phone] Social History Tobacco Use Types Packs/Day Years [...] or relatives? How often do you attend mormon or More than 4 times per year 07/24/2020 buddhist services? Do you belong to any clubs or Yes 07/24/2020 organizations such as mormon groups, unions, fraternal or athletic groups, or [...] note under document viewer tab for the [facility] [place] outreach visit from this date. documented in this encounter Plan of Treatment Not on filedocumented as of this encounter Visit Diagnoses Diagnosis Hypertension And Chronic Kidney Disease Stage 1 - Primary Proteinuria Sjogren's (Sicca) Syndrome (HCC) documented in this encounter
--- OUTSIDE RECORDS SUMMARY | 2022-02-03 08:02 | XMS_ITS | Encounter Summary ---
:1945 Author Organization [facility] Address [address] [place] [address] Care Team Providers Name Role Phone Unavailable [...] 09/05/2003 AM CDT 11:04 AM CDT Narrative [facility] - 09/05/2003 11:04 AM CDT ?09/05/2003 General Biopsy ? ([id number]) ? Requested By: ??Del Amaya M.D. ? ?[id number] ?? Additional Physician: ??Travis rosas M.D. [id number] ? TISSUE DESCRIPTION: [id number] A1 ?? A. ??Antrum, Stomach biopsy: ??(6 [...] Helicobacter pylori. ? 09/06/03 ??Madelaine Rodrigez M.D. [id number] ? Procedure Note 05/23/2017 09/05/2003 General Biopsy ([id number]) Requested By: Del Amaya M.D. [phone] Additional Physician: Travis hinkle M.D. [id number] TISSUE DESCRIPTION: [id number] A1 A. Antrum, Stomach biopsy: (6 pieces [...] No Helicobacter pylori. 09/06/03 Madelaine Rodrigez M.D. [id number] Historical Provider LAB PATHOLOGY/CYTOLOGY ORDER HIRAM Performing Organization Address City/State/ZIP Code Phon e Number [facility] - [address] [place] [address] 05 [facility] documented in this encounter Visit Diagnoses Not on filedocumented in this encounter
--- OUTSIDE RECORDS SUMMARY | 2022-02-03 08:02 | XMS_ITS | Encounter Summary ---
:1945 Author Organization [facility] Address [address] [place] [address] Care Team Providers Name Role Phone Unavailable Primary Care Provider Unavailable Encounter Details Date Type Department Care Team Description 07/24/2020 Hospital Encounter Department of Teodoro, Vineet Pain Shoulder Left Radiology, Frederick Paulino M.D. [facility], in [address] [place] [address] [address] [place] [address] [place], [place] (Work) [phone] Social History Tobacco Use Types Packs/Day Years [...] or relatives? How often do you attend sikhism or More than 4 times per year 07/24/2020 gnosticism services? Do you belong to any clubs or Yes 07/24/2020 organizations such as sikhism groups, unions, fraternal or athletic groups, or [...]
--- OUTSIDE RECORDS SUMMARY | 2022-02-03 08:02 | XMS_ITS | Encounter Summary ---
:1945 Author Organization [facility] Address [address] [place] [address] Care Team Providers Name Role Phone Unavailable Primary Care Provider Unavailable Reason for Visit Reason Comments Pre-scheduling Questionnaire Encounter Details Date Type Department Care Team Description 07/18/2020 Clinical Department of Prescheduling, Pre-scheduli ng Communication Orthopedic Surgery Provider Question evelyn in [place], [place] [address] [place] [phone] Social History Tobacco Use Types Packs/Day Years [...] or relatives? How often do you attend advent or More than 4 times per year 07/24/2020 temple services? Do you belong to any clubs or Yes 07/24/2020 organizations such as advent groups, unions, fraternal or athletic groups, or [...]
--- OUTSIDE RECORDS SUMMARY | 2022-02-03 08:02 | XMS_ITS | Encounter Summary ---
:1945 Author Organization [facility] Address [address] [place] [address] Care Team Providers Name Role Phone Unavailable Primary Care Provider Unavailable Encounter Details Date Type Department Care Team Description 01/03/2020 Clinical Communication Division of Nephrology King Garza and Hypertension in Chanel Ruiz D.O. [place], [place] [address] [facility] [address] [place] [phone] Social History Tobacco Use Types Packs/Day Years [...] or relatives? How often do you attend holiness or More than 4 times per year 07/24/2020 taoist services? Do you belong to any clubs or Yes 07/24/2020 organizations such as holiness groups, unions, fraternal or athletic groups, or [...] scanned into patients chart. Forwarded to nurses. TENDER HELPER documented in this encounter Plan of Treatment Not on filedocumented as of this encounter Visit Diagnoses Not on filedocumented in this encounter
--- OUTSIDE RECORDS SUMMARY | 2022-02-03 08:02 | XMS_ITS | Encounter Summary ---
:1945 Author Organization [facility] Address [address] [place] [address] Care Team Providers Name Role Phone Unavailable Primary Care Provider Unavailable Reason for Referral Outpatient (Routine) - Closed Specialty Diagnoses / Procedures Referred By Contact Refer red To Contact Orthopedic Surgery Diagnoses Pain Shoulder Left Gumaro Powell [facility] Kathy [address] [place] [address] Referral ID Status Reason Start Date Expiration Date Visits Requ ested Visits Authorized [id number] Closed 07/17/2020 07/17/2021 1 1 Encounter Details Date Type Department Care Team Description 07/17/2020 Community Orders [facility] Sherry, Pain Shoulder Left AND CLINICS Kathy Naik (Primary Dx) [address] [place] [address] [address] [place] [address] [place], [place] [phone] Social History Tobacco Use Types Packs/Day Years [...] More than 4 times per year 07/24/2020 congregation services? Do you belong to any clubs [...] place to sleep or slept in a longterm (including now)? Sex Assigned at Date Recorded Not on file documented as of this encounter Plan of Treatment Scheduled Referrals Name Type Priority Associated Order Schedule Diagnoses Orthopedics Referral Outpatient Referral Routine Pain Shoulder Left Expected: 07/17/2020 (Approximate), Expires: 07/18/2023 documented as of this encounter Visit Diagnoses Diagnosis Pain Shoulder Left - Primary documented in this encounter
--- OUTSIDE RECORDS SUMMARY | 2022-02-03 08:02 | XMS_ITS | Encounter Summary ---
:1945 Author Organization [facility] Address [address] [place] [address] Care Team Providers Name Role Phone Unavailable Primary Care Provider Unavailable Reason for Visit Appointment Request (Routine) - Closed Specialty Diagnoses / Procedures Referred By Contact Refer red To Contact Nephrology and Hypertension Referral ID Status Reason Start Date Expiration Date Visits Requ ested Visits Authorized [id number] Closed 12/08/2019 12/07/2020 1 1 Encounter Details Date Type Department Care Team Description 01/04/2020 External Outreach Division of [place], Hypertensi on And Chronic Kidney Disease Stage 1 (Primary Dx); Nephrology and King Buchanan Jr., Sjogren's (S icca) Syndrome (HCC); Hypertension in D.O. Hyperlipidemia; [place], [place] 200 [facility] Cancer Breast Personal History [address] [place] [address] [phone] Social History Tobacco Use Types Packs/Day Years [...] More than 4 times per year 07/24/2020 sabianism services? Do you belong to any clubs [...] place to sleep or slept in a alf (including now)? Sex Assigned at Date Recorded Not on file documented as of this encounter Progress Notes King Garza Jr., D.O. - 01/04/2020 11:30 AM CST Please see scanned in note under document viewer tab for the [facility] [place] outreach visit from this date. PLAYER documented in this encounter Plan of Treatment Not on filedocumented as of this encounter Visit Diagnoses Diagnosis Hypertension And Chronic Kidney Disease Stage 1 - Primary Sjogren's (Sicca) Syndrome (HCC) Hyperlipidemia Cancer Breast Personal History documented in this encounter
--- OUTSIDE RECORDS SUMMARY | 2022-02-03 08:02 | XMS_ITS | Encounter Summary ---
:1945 Author Organization [facility] Address [address] [place] [address] Care Team Providers Name Role Phone Unavailable Primary Care Provider Unavailable Reason for Visit Appointment Request (Routine) - Closed Specialty Diagnoses / Procedures Referred By Contact Refer red To Contact Nephrology and Hypertension Referral ID Status Reason Start Date Expiration Date Visits Requ ested Visits Authorized [id number] Closed 08/01/2021 08/01/2022 1 Encounter Details Date Type Department Care Team Description 08/13/2021 External Outreach Division of [place], Hypertensi on And Chronic Kidney Disease Stage 1 (Primary Dx); Nephrology and King Buchanan Jr., Sjogren's (S icca) Syndrome (HCC); Hypertension in D.O. Proteinuria; [place], [place] [address] [facility] Hyperlipidemia [address] [place] [phone] [phone] Social History Tobacco Use Types Packs/Day Years [...] or relatives? How often do you attend gnosticist or More than 4 times per year 07/24/2020 bahai services? Do you belong to any clubs or Yes 07/24/2020 organizations such as gnosticist groups, unions, fraternal or athletic groups, or [...] place to sleep or slept in a halfway (including now)? Education Answer Date Recorded What is the highest level of school you have completed or 12 th grade 07/24/2020 the highest degree you have received? Sex Assigned at Date Recorded Not on file documented as of this encounter Progress Notes King Garza Jr. D.O. - 08/13/2021 11:30 AM CDT Please see scanned in note under document viewer tab for the [facility] [place] outreach visit from this date. Medical Problems Diagnosis List Myocardial Infarction Old Overview Deleted 04/30/2017 11:31 AM by Conversion, Rst Problem List [id number] Hyperlipidemia Hypertension And Chronic Kidney Disease Stage 1 Cancer Breast Personal History Sjogren's (Sicca) Syndrome (HCC) Proteinuria documented in this encounter Plan of Treatment Not on filedocumented as of this encounter Visit Diagnoses Diagnosis Hypertension And Chronic Kidney Disease Stage 1 - Primary Sjogren's (Sicca) Syndrome (HCC) Proteinuria Hyperlipidemia documented in this encounter
--- OUTSIDE RECORDS SUMMARY | 2022-02-03 08:02 | XMS_ITS | Encounter Summary ---
:1945 Author Organization [facility] Address [address] [place] [address] Care Team Providers Name Role Phone Unavailable Primary Care Provider Unavailable Encounter Details Date Type Department Care Team Description 08/04/2012 Hospital Encounter HX NO MAPPING Social History [...] or relatives? How often do you attend oriental orthodox or More than 4 times per year 07/24/2020 catholic services? Do you belong to any clubs or Yes 07/24/2020 organizations such as oriental orthodox groups, unions, fraternal or athletic groups, or [...]
--- OUTSIDE RECORDS SUMMARY | 2022-02-03 08:02 | XMS_ITS | Encounter Summary ---
:1945 Author Organization [facility] Address [address] [place] [address] Care Team Providers Name Role Phone Unavailable [...] or relatives? How often do you attend evangelical or More than 4 times per year 07/24/2020 anglican services? Do you belong to any clubs or Yes 07/24/2020 organizations such as evangelical groups, unions, fraternal or athletic groups, or [...] 22-Aug-2002 15:4 3 Radha Ledbetter APRN C.N.P. [facility] PROCEDURES MR Brain without and with IV [...] 08/22/2002 AM CDT 10:24 AM CDT Narrative [facility] - 08/22/2002 10:24 AM CDT ?08/22/2002 General Biopsy ? ([id number]) ? Requested By: ??Sarabjit Epps ??[id number] ?? Additional Physician: ??Reese dee M.D. [id number] ? TISSUE DESCRIPTION: [id number] ?? A. ??Hepatic flexure transverse rectum, Colon biopsy: ??(6 pieces 0.1 - 0.5 cm. in diameter) ?DIAGNOSIS: ?? Colon, hepatic flexure/transverse/rectu m, endoscopic biopsy: ?? Colonic mucosa with focal active inflam mation and ischemic injury. Infection and NSAID-associated injury c an also produce ischemic changes. ??Separate fragments of normal colonic mucosa are also present. ? 08/23/02 ??Madelaine Rodrigez M.D. [id number] ? Procedure Note 05/23/2017 08/22/2002 General Biopsy ([id number]) Requested By: Salome Epps [id number] Additional Physician: Reese Mars M.D. [id number] TISSUE DESCRIPTION: [id number] A1 A. Hepatic flexure transverse rectum, C olon biopsy: (6 pieces 0.1 - 0.5 cm. in diameter) DIAGNOSIS: Colon, hepatic flexure/transverse/rectu m, endoscopic biopsy: Colonic mucosa with focal active inflam mation and ischemic injury. Infection and NSAID-associated injury c an also produce ischemic changes. Separate fragments of normal c olonic mucosa are also present. 08/23/02 Madelaine Rodrigez M.D. [id number] Historical Provider LAB PATHOLOGY/CYTOLOGY ORDER HIRAM Performing Organization Address City/State/ZIP Code Phon e Number [facility] [address] [place], [place] [address] [facility] documented in this encounter Visit Diagnoses Not on filedocumented in this encounter
--- OUTSIDE RECORDS SUMMARY | 2022-02-03 08:02 | XMS_ITS | Encounter Summary ---
:1945 Author Organization [facility] Address [address] [place] [address] Care Team Providers Name Role Phone Unavailable Primary Care Provider Unavailable Encounter Details Date Type Department Care Team Description 07/20/2020 Clinical Communication Central Appointment Carlitos wheatley, Office in [address] [address] Social History Tobacco Use Types [...] or slept in a halfway (including now)? Sex Assigned at Date Recorded Not on file documented as of this encounter Plan of Treatment Not on filedocumented as of this encounter Visit Diagnoses Not on filedocumented in this encounter
--- OUTSIDE RECORDS SUMMARY | 2022-02-03 08:02 | XMS_ITS | Encounter Summary ---
:1945 Author Organization [facility] Address [address] [place] [address] Care Team Providers Name Role Phone Unavailable Primary Care Provider Unavailable Reason for Visit Outpatient (Routine) - Closed Specialty Diagnoses / Procedures Referred By Contact Refer red To Contact Diagnoses Pain Shoulder Left Vineet Valerio M.D. [facility] Procedures ORS US-Guided aspiration/injection [address] [place] [address] Referral ID Status Reason Start Date Expiration Date Visits Requ ested Visits Authorized [id number] Closed 07/24/2020 07/24/2021 1 1 Encounter Details Date Type Department Care Team Description 07/24/2020 Procedure visit Department of Ramila Burns, Lore Schulz ldnathan Left Orthopedic Surgery in [address] [phone] [phone] Social History Tobacco Use Types Packs/Day Years [...] More than 4 times per year 07/24/2020 evangelical services? Do you belong to any clubs [...] this note. Images have been archived in [employer]: click the 'Dept Filter' button in [employer], then the 'Clear (Show All)' button, then [...] Name Priority Date/Time Associated Diagnosis Comme nts [place] ARTHCS ASP/INJ Routine 07/24/2020 12:49 PM Pain Shoulder Le ft Results for this MJR JT W US CDT procedure are i n the results section. documented in this encounter Results [place] ARTHCS ASP/INJ MJR JT W US (07/24/2020 [...] note. Images h ave been archived in [employer]: click the 'Dept Filter' button in [employer], then the 'Clear (Show All)' button, then [...]
--- OUTSIDE RECORDS SUMMARY | 2022-02-03 08:02 | XMS_ITS | Encounter Summary ---
:1945 Author Organization [facility] Address [address] [place] [address] Care Team Providers Name Role Phone Unavailable Primary Care Provider Unavailable Encounter Details Date Type Department Care Team Description 07/17/2015 Hospital Encounter HX [facility] Trino Beckford M.D. [address] [place] [phone] (Wo rk) Social History Tobacco Use Types [...] or relatives? How often do you attend restorationism or More than 4 times per year 07/24/2020 mormonism services? Do you belong to any clubs or Yes 07/24/2020 organizations such as restorationism groups, unions, fraternal or athletic groups, or [...] or slept in a fci (including now)? Sex Assigned at Date Recorded Not on file documented as of this encounter Miscellaneous Notes Miscellaneous - Lisa Oneill RAlexiN. - 07/17/2015 10:01 AM CDT *General Message From: LISA ONEILL RN To: LISA ONEILL RN; Sent: 07/17/2015 10:01:59 CDT Subject: *General Message Tho Vela Can you schedule Mrs. Quinn ([phone]) for a stress echo with me on ThursdayAugust 28 or another time that is convenient for her and your schedules? I am seeing her in [place] but we do not do the stress tests here so I want to do it in [place]. Thanks Simon Beckford Source: [facility] POWERCHART Document Id: [id number] documented in this encounter Plan of Treatment Not on filedocumented as of this encounter Visit Diagnoses Not on filedocumented in this encounter
--- OUTSIDE RECORDS SUMMARY | 2022-02-03 08:02 | XMS_ITS | Encounter Summary ---
:1945 Author Organization [facility] Address [address] [place] [address] Care Team Providers Name Role Phone Unavailable Primary Care Provider Unavailable Encounter Details Date Type Department Care Team Description 07/03/2020 Orders Only RST PCP HLTH Tamica Lujan M.D. [address] [place] [address] [phone] (Wo rk) Social History Tobacco [...] or relatives? How often do you attend yazidism or More than 4 times per year 07/24/2020 zoroastrianism services? Do you belong to any clubs or Yes 07/24/2020 organizations such as yazidism groups, unions, fraternal or athletic groups, or [...]
--- OUTSIDE RECORDS SUMMARY | 2022-02-03 08:02 | XMS_ITS | Encounter Summary ---
:1945 Author Organization [facility] Address [address] [place] [address] Care Team Providers Name Role Phone Unavailable Primary Care Provider Unavailable Reason for Visit Reason Comments Pre-visit Testing Orders L shldr pain Encounter Details Date Type Department Care Team Description 07/19/2020 Clinical Communication Department of [place], Pre- visit Testing Orthopedic Surgery Junior Paulino M.D. Orders (L shldr in [address] pain) [place], [place] [address] [facility] [address] [place], [place] [phone] (Work) [phone] Social History Tobacco Use Types Packs/Day Years [...] or relatives? How often do you attend rastafari or More than 4 times per year 07/24/2020 mosque services? Do you belong to any clubs or Yes 07/24/2020 organizations such as rastafari groups, unions, fraternal or athletic groups, or [...] or slept in a long-term (including now)? Sex Assigned at Date Recorded [...]
--- OUTSIDE RECORDS SUMMARY | 2022-02-03 08:02 | XMS_ITS | Encounter Summary ---
:1945 Author Organization [facility] Address [address] [place] [address] Care Team Providers Name Role Phone Unavailable Primary Care Provider Unavailable Encounter Details Date Type Department Care Team Description 12/26/2020 Orders Only RST PCP HLTH Tamica Lujan M.D. [address] [place] [address] [phone] (Wo rk) Social History Tobacco [...] or relatives? How often do you attend moravian or More than 4 times per year 07/24/2020 sikhism services? Do you belong to any clubs or Yes 07/24/2020 organizations such as moravian groups, unions, fraternal or athletic groups, or [...] or slept in a longterm (including now)? Education Answer Date Recorded What [...]
--- OUTSIDE RECORDS SUMMARY | 2022-02-03 08:02 | XMS_ITS | Encounter Summary ---
:1945 Author Organization [facility] Address [address] [place] [address] Care Team Providers Name Role Phone Unavailable Primary Care Provider Unavailable Encounter Details Date Type Department Care Team Description 07/08/2017 [facility] AND SherryReyes barcenas [facility] Kathy [address] [place] [address] [facility] [place] [address] [place] [address] (Wo rk) Social History Tobacco [...] More than 4 times per year 07/24/2020 rastafari services? Do you belong to any clubs [...]
--- OUTSIDE RECORDS SUMMARY | 2022-02-03 08:02 | XMS_ITS | Encounter Summary ---
:1945 Author Organization [facility] Address [address] [place] [address] Care Team Providers Name Role Phone Unavailable Primary Care Provider Unavailable Reason for Referral Outpatient (Routine) - Closed Specialty Diagnoses / Procedures Referred By Contact Refer red To Contact Diagnoses Pain Shoulder Left Vineet Valerio M.D. [facility] Procedures ORS US-Guided aspiration/injection [address] [place] [address] Referral ID Status Reason Start Date Expiration Date Visits Requ ested Visits Authorized [id number] Closed 07/24/2020 07/24/2021 1 1 Reason for Visit Reason Comments Pain Outpatient (Routine) - Closed Specialty Diagnoses / Procedures Referred By Contact Refer red To Contact Orthopedic Surgery Diagnoses Pain Shoulder Left Gumaro Powell [place] Komal Chavez [address] [place] [address] Referral ID Status Reason Start Date Expiration Date Visits Requ ested Visits Authorized [id number] Closed 07/17/2020 07/17/2021 1 1 Encounter Details Date Type Department Care Team Description 07/24/2020 Comprehensive Visit Department of Junior Avila Pain Shoulder Left Orthopedic Surgery in Kathy Paulino [place], [place] [address] [facility] [address] [place] [phone] Social History Tobacco Use Types Packs/Day Years [...] or relatives? How often do you attend mandaeism or More than 4 times per year 07/24/2020 temple services? Do you belong to any clubs or Yes 07/24/2020 organizations such as mandaeism groups, unions, fraternal or athletic groups, or [...] or slept in a alf (including now)? Education Answer Date Recorded What [...] pain they were advised to contact my clinical education academic coordinator to schedule an MRI. All questions answered. The patient was told to contact the service with any questions or concerns at any time. documented in this encounter Plan of Treatment Not on filedocumented as of this encounter Results [place] ARTHCS ASP/INJ MJR JT W US (07/24/2020 [...] note. Images h ave been archived in [employer]: click the 'Dept Filter' button in [employer], then the 'Clear (Show All)' button, then [...]
--- OUTSIDE RECORDS SUMMARY | 2022-02-03 08:02 | XMS_ITS | Encounter Summary ---
:1945 Author Organization [facility] Address [address] [place] [address] Care Team Providers Name Role Phone Unavailable Primary Care Provider Unavailable Reason for Visit Appointment Request (Routine) - Closed Specialty Diagnoses / Procedures Referred By Contact Refer red To Contact Nephrology and Hypertension Referral ID Status Reason Start Date Expiration Date Visits Requ ested Visits Authorized [id number] Closed 01/31/2021 01/31/2022 1 1 Encounter Details Date Type Department Care Team Description 02/11/2021 External Outreach Division of [place], Hypertensi on And Chronic Kidney Disease Stage 1 (Primary Dx); Nephrology and King Buchanan Jr., Hyperlipidem ia; Hypertension in D.O. Sjogren's (Sicca) Syndrome (HCC); [place], [place] [address] [facility] Proteinuria [address] [place] [phone] [phone] Social History Tobacco Use Types Packs/Day Years [...] or relatives? How often do you attend pentecostal or More than 4 times per year 07/24/2020 spiritism services? Do you belong to any clubs or Yes 07/24/2020 organizations such as pentecostal groups, unions, fraternal or athletic groups, or [...] or slept in a penitentiary (including now)? Education Answer Date Recorded What is the highest level of school you have completed or 12 th grade 07/24/2020 the highest degree you have received? Sex Assigned at Date Recorded Not on file documented as of this encounter Progress Notes King Garza Jr., D.O. - 02/11/2021 2:30 PM CST Please see scanned in note under document viewer tab for the [facility] [place] outreach visit from this date. STRY FOREMAN documented in this encounter Plan of Treatment Not on filedocumented as of this encounter Visit Diagnoses Diagnosis Hypertension And Chronic Kidney Disease Stage 1 - Primary Hyperlipidemia Sjogren's (Sicca) Syndrome (HCC) Proteinuria documented in this encounter
--- OUTSIDE RECORDS SUMMARY | 2022-02-03 08:03 | XMS_ITS | Clinical Summary ---
:1945 Author Organization [facility] Address [address] [place] [address] Care Team Providers Name Role Phone Jr Landeros MD Primary Care Provider [phone] Jr Landeros MD Unavailable Allergies Active [...] Active STRENGTH 1200 MG OR 12 HOURS [id number]: NEEDED Bronchitis acute ACCU-CHEK MULTICLIX TEST 1-2 [...] related ; breast cancer 199 8 and 2002- more so after second round Problem list name updated by automated p rocess. 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 Hypertensive kidney disease, stage 1 08/23/2002 Personal history of malignant neoplasm of breast Overview: Mastectomy and chemotherapy; Recurrence 2001; Chemo and radiation; Tamoxifen, now Arimedex; followed at [facility] Cardiovascular disease Overview: PTCA- age 42 Problem [...] 11/13/2010, 12/14/2009, 12/21/2007, 12/31/2006, 12/18/2005, 11/30/2005 Influenza Vaccine 50-64 or 18-64 12/24/2018 w/egg allergy (Flublok) Influenza Vaccine 65+ (Fluzone HD) 12/26/2020, 12/15/2019 Pneumo Conj 13-V (2010&after) 03/09/2015 Pneumococcal 23 valent 12/10/2017, 04/08/2011, 12/19/2008 TD (ADULT, 7+) 04/13/2018, 05/31/2005, 04/23/2005 Tdap (Adacel,Boostrix) 01/09/2012, 08/10/2007 Zoster vaccine recombinant adjuvanted 03/30/2018, 12/10/2017 (SHINGRIX) Zoster vaccine, live 04/08/2011, 05/24/2008 Family History Medical History Relation Comments [place] Brother Heart Disease Brother from a heart at [facility] [place] Father Hypertension Father Cancer Maternal Grandfather unknown [...] e / Group Dates ARY/KAYLA ROSA FOR [id number] 2010-Prese [phone] FOR Indemnity [place] LIFE nt 04 LIFE [address] [place] [address] MEDICARE MEDICARE [id number] 2010-Prese [phone] ATTN SHELIADwaine [place] Medicare nt 40 [address] [place] [address] Care Teams Airconditioning Drafting Officer Relationship Specialty Start Date End Date Jr Landeros MD PCP - General Internal Medicine 05/24/21 [address] [place] [address] Jr Landeros MD Assigned PCP 05/26/21 [address] [place], [place] [id number]
--- OUTSIDE RECORDS SUMMARY | 2022-02-03 08:03 | XMS_ITS | Encounter Summary ---
:1945 Author Organization [place] Address [address] [place] [address]. [place] [address] Care Team Providers Name Role Phone Tiffany Leonard MD Primary Care Provider [phone] Reason for Visit Rehab Therapy Cardiac Therapy (Routine) - Closed Specialty Diagnoses / Procedures Referred By Contact Refer red To Contact CARDIAC REHAB Diagnoses Medicare// NAY Requested order/recs [facility] Procedures EVALUATION [facility] [address] [place] [address] Phone: Fax: Referral ID Status Reason Start Date Expiration Date Visits V isits Requested Authorized FR -CR Closed 12/18/2015 03/01/2016 36 36 ([id number]) Encounter Details Date Type Department Care Team Description 01/01/2016 Hospital Encounter [facility] Cardiac Big gs, Alex Mas MD 225 [facility] 100 [place] [address] and Pulmonary 2, Rh Cardiac Rehab Rehabilitation [facility] [address] [facility] [address] [place] [address] Social History Tobacco Use [...] 0 07/31 1200 MG OR HOURS NEEDED [id number]: Bronchitis acute pravastatin (PRAVACHOL) Take 1 tablet [...] Diagnosis (None) Significant Past CV History Previous [place] Comorbidities DM;Previous [place] Other Medical History History of breast cancer s/p mastectomy and chemotherapy. 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 Lead up symptoms Lightheadedness, shortness of breath, and chest tightness. Hospital Location [facility] Discharge Date 12/11/15 Signs and Symptoms Post Hospital Discharge None Outpatient Cardiac Rehab Start Date 12/20/[address] Lainez Primary Physician Follow Up Scheduled Surgeon NA Ironer Bina Marie MD Ejection Fraction Normal per echo. 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 Quality of Life: If [...] maximize weight loss goal. PT to join [facility] prior to discharge to continue a home exercise program to decrease cardiac risk. Goal #1 Target Date 01/24/16 Goal #1 Progress Towards Goal 01/01/2016 PT has started to walk on her treadmill 2 days per week at home for 20 minutes. She also walked one day at the [facility]. She generally does at least 6000 steps per day. Encouraged her to increase her time on the treadmill to 25-30 minutes and she thought this was feasible. Activity/Exercise Comments PT plans to join the [facility]. PT does have a treadmill at home. [...] needed Learning Assessment Learner Patient Primary Language Lebanese Preferred Learning Style Reading Barriers to Learning No barriers noted Patient Education Education recommended Anatomy and Physiology of the Heart;Blood Pressure;Diabetes;Exercise Principles;Medication Overview;Muscle Conditioning;Nutrition;Risk Factors;Stress Management Physician cosignature/electronic signature indicates approval of this ITP document. I have established, reviewed and made necessary changes to the individualized treatment plan and exercise prescription for this patient. IKISHA DRIVER documented in this encounter Plan of Treatment Not on filedocumented as of this encounter Visit Diagnoses Not on filedocumented in this encounter Care Teams Senior Manufacturing Test Engineer Relationship Specialty Start Date End Date Tiffany Leonard MD PCP - General 04/16/01 05/23/21 documented as of this encounter
--- OUTSIDE RECORDS SUMMARY | 2022-02-03 08:03 | XMS_ITS | Encounter Summary ---
:1945 Author Organization [place] Address [address] [place] [address]. [place] [address] Care Team Providers Name Role Phone Tiffany Leonard MD Primary Care Provider [phone] Reason for Visit Rehab Therapy Cardiac Therapy (Routine) - Closed Specialty Diagnoses / Procedures Referred By Contact Refer red To Contact CARDIAC REHAB Diagnoses Medicare// NAY Requested order/recs [facility] Procedures EVALUATION 105 [facility] [address] [place] [address] Phone: Fax: Referral ID Status Reason Start Date Expiration Date Visits V isits Requested Authorized FR -CR Closed 12/18/2015 03/01/2016 36 36 ([id number]) Encounter Details Date Type Department Care Team Description 01/30/2016 Hospital Encounter [facility] Cardiac Big , Alex Mas MD [facility] 100 [place] [address] and Pulmonary 1, Rh Cardiac Rehab Rehabilitation [facility] [address] [facility] [address] [place] [address] Social History Tobacco Use [...] 0 07/31 1200 MG OR HOURS NEEDED [id number]: Bronchitis acute pravastatin (PRAVACHOL) Take 1 tablet [...] on filedocumented in this encounter Care Teams Power Plant Manager Relationship Specialty Start Date End Date Tiffany Leonard MD PCP - General 04/16/01 05/23/21 documented as of this encounter
--- OUTSIDE RECORDS SUMMARY | 2022-02-03 08:03 | XMS_ITS | Encounter Summary ---
:1945 Author Organization [place] Address [address] [place] [address] Care Team Providers Name Role Phone Tiffany Leonard MD Primary Care Provider [phone] Reason for Visit Rehab Therapy Cardiac Therapy (Routine) - Closed Specialty Diagnoses / Procedures Referred By Contact Refer red To Contact CARDIAC REHAB Diagnoses Medicare// NAY Requested order/recs [facility] Procedures EVALUATION [address] [place] [address] [place] [address] Phone: Fax: Referral ID Status Reason Start Date Expiration Date Visits V isits Requested Authorized FR -CR Closed 12/18/2015 03/01/2016 36 36 ([id number]) Encounter Details Date Type Department Care Team Description 12/28/2015 Hospital Encounter [facility] Admit, Dr Srinivasan Cardiac and Pulmonary [facility] [address] [place] [address] Rehabilitation 1, Rh Cardiac Rehab [place] [id number] [place] [address] [address] [place] [address] Social History Tobacco Use Types [...] 0 07/31 1200 MG OR HOURS NEEDED [id number]: Bronchitis acute pravastatin (PRAVACHOL) Take 1 tablet [...] on filedocumented in this encounter Care Teams Customer Solutions Coordinator Relationship Specialty Start Date End Date Tiffany Leonard MD PCP - General 04/16/01 05/23/21 documented as of this encounter
--- OUTSIDE RECORDS SUMMARY | 2022-02-03 08:03 | XMS_ITS | Encounter Summary ---
:1945 Author Organization [place] Address [address] [place] [address]. [place] [address] Care Team Providers Name Role Phone Tiffany Leonard MD Primary Care Provider [phone] Reason for Visit Rehab Therapy Cardiac Therapy (Routine) - Closed Specialty Diagnoses / Procedures Referred By Contact Refer red To Contact CARDIAC REHAB Diagnoses Medicare// NAY Requested order/recs [facility] Procedures EVALUATION 105 [facility] [address] [place] [address] Phone: Fax: Referral ID Status Reason Start Date Expiration Date Visits V isits Requested Authorized FR -CR Closed 12/18/2015 03/01/2016 36 36 ([id number]) Encounter Details Date Type Department Care Team Description 01/09/[address] [facility] Cardiac Big , Alex Mas MD 225 [facility] 100 [place] [address] and Pulmonary 1, Rh Cardiac Rehab Rehabilitation [facility] [address] [facility] [address] [place] [address] Social History Tobacco Use [...] 0 07/31 1200 MG OR HOURS NEEDED [id number]: Bronchitis acute pravastatin (PRAVACHOL) Take 1 tablet [...] on filedocumented in this encounter Care Teams Lead Programmer Relationship Specialty Start Date End Date Tiffany Leonard MD PCP - General 04/16/01 05/23/21 documented as of this encounter
--- OUTSIDE RECORDS SUMMARY | 2022-02-03 08:03 | XMS_ITS | Encounter Summary ---
:1945 Author Organization [place] Address [address] [place] [address]. [place] [address] Care Team Providers Name Role Phone Tiffany Leonard MD Primary Care Provider [phone] Reason for Visit Rehab Therapy Cardiac Therapy (Routine) - Closed Specialty Diagnoses / Procedures Referred By Contact Refer red To Contact CARDIAC REHAB Diagnoses Medicare// NAY Requested order/recs [facility] Procedures EVALUATION 105 [facility] [address] [place] [address] Phone: Fax: Referral ID Status Reason Start Date Expiration Date Visits V isits Requested Authorized FR -CR Closed 12/18/2015 03/01/2016 36 36 ([id number]) Encounter Details Date Type Department Care Team Description 01/11/2016 Hospital Encounter [facility] Cardiac Big , Alex Mas MD [address] [facility] 100 [place] [address] and Pulmonary 1, Rh Cardiac Rehab [facility] [address] [facility] [address] [place] [address] Social History Tobacco Use [...] 0 07/31 1200 MG OR HOURS NEEDED [id number]: Bronchitis acute pravastatin (PRAVACHOL) Take 1 tablet [...] Diagnosis (None) Significant Past CV History Previous MD Comorbidities DM;Previous MD Other Medical History History of breast cancer s/p mastectomy and chemotherapy. 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 Lead up symptoms Lightheadedness, shortness of breath, and chest tightness. Hospital Location [facility] Discharge Date 12/11/15 Signs and Symptoms Post Hospital Discharge None Outpatient Cardiac Rehab Start Date 12/20/[address] 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 Quality [facility] Life: If [...] weight loss goal. PT to [facility] prior to discharge to continue a home exercise program to decrease cardiac risk. Goal #1 Target Date 01/24/16 Goal #1 Progress Towards Goal 01/01/2016 PT has started to walk on her treadmill 2 days per week at home for 20 minutes. She also walked one day at the [employer]. She generally does at least 6000 steps [...] needed Learning Assessment Learner Patient Primary Language Gambian Preferred Learning Style Reading Barriers to Learning No barriers noted Patient Education Education recommended Anatomy and Physiology of the Heart;Blood Pressure;Diabetes;Exercise Principles;Medication Overview;Muscle Conditioning;Nutrition;Risk Factors;Stress Management NT BOAT AND BARGE LOADER documented in this encounter Plan of Treatment Not on filedocumented as of this encounter Visit Diagnoses Not on filedocumented in this encounter Care Teams Medical Authorization Specialist Relationship Specialty Start Date End Date Tiffany Leonard MD PCP - General 04/16/01 05/23/21 documented as of this encounter
--- OUTSIDE RECORDS SUMMARY | 2022-02-03 08:03 | XMS_ITS | Encounter Summary ---
:1945 Author Organization [place] Address [address] [place] [address]. [place] [address] Care Team Providers Name Role Phone Tiffany Leonard MD Primary Care Provider [phone] Reason for Visit Rehab Therapy Cardiac Therapy (Routine) - Closed Specialty Diagnoses / Procedures Referred By Contact Refer red To Contact CARDIAC REHAB Diagnoses Medicare// NAY Requested order/recs [facility] Procedures EVALUATION 105 [facility] [address] [place] [address] Phone: Fax: Referral ID Status Reason Start Date Expiration Date Visits V isits Requested Authorized FR -CR Closed 12/18/2015 03/01/2016 36 36 ([id number]) Encounter Details Date Type Department Care Team Description 12/25/2015 Hospital Encounter [facility] Cardiac Big , Alex Mas MD 225 [facility] 100 [place] [address] and Pulmonary 2, Rh Cardiac Rehab Rehabilitation [facility] [address] [facility] [address] [place] [address] Social History Tobacco Use [...] 0 07/31 1200 MG OR HOURS NEEDED [id number]: Bronchitis acute pravastatin (PRAVACHOL) Take 1 tablet [...] on filedocumented in this encounter Care Teams Curing Bin Operator Relationship Specialty Start Date End Date Tiffany Leonard MD PCP - General 04/16/01 05/23/21 documented as of this encounter
--- OUTSIDE RECORDS SUMMARY | 2022-02-03 08:03 | XMS_ITS | Encounter Summary ---
:1945 Author Organization [place] Address [address] [place] [address] Care Team Providers Name Role Phone Tiffany Leonard MD Primary Care Provider [phone] Encounter Details Date Type Department Care [...] on filedocumented in this encounter Care Teams Police Records Clerk Relationship Specialty Start Date End Date Tiffany Leonard MD PCP - General 04/16/01 documented as of this encounter
--- OUTSIDE RECORDS SUMMARY | 2022-02-03 08:03 | XMS_ITS | Encounter Summary ---
:1945 Author Organization [place] Address [address] [place] [address]. [place] [address] Care Team Providers Name Role Phone Tiffany Leonard MD Primary Care Provider [phone] Reason for Visit Rehab Therapy Cardiac Therapy (Routine) - Closed Specialty Diagnoses / Procedures Referred By Contact Refer red To Contact CARDIAC REHAB Diagnoses Medicare// NAY Requested order/recs [facility] Procedures EVALUATION 105 [facility] [address] [place] [address] Phone: Fax: Referral ID Status Reason Start Date Expiration Date Visits V isits Requested Authorized FR -CR Closed 12/18/2015 03/01/2016 36 36 ([id number]) Encounter Details Date Type Department Care Team Description 01/18/[address] [facility] Cardiac Big , Alex Mas MD 225 [facility] 100 [place] [address] and Pulmonary 1, Rh Cardiac Rehab Rehabilitation [facility] [address] [facility] [address] [place] [address] Social History Tobacco Use [...] 0 07/31 1200 MG OR HOURS NEEDED [id number]: Bronchitis acute pravastatin (PRAVACHOL) Take 1 tablet [...] on filedocumented in this encounter Care Teams Carriage Dogger Relationship Specialty Start Date End Date Tiffany Leonard MD PCP - General 04/16/01 05/23/21 documented as of this encounter
--- OUTSIDE RECORDS SUMMARY | 2022-02-03 08:03 | XMS_ITS | Encounter Summary ---
:1945 Author Organization [place] Address [address] [place] [address]. [place] [address] Care Team Providers Name Role Phone Tiffany Leonard MD Primary Care Provider [phone] Reason for Visit Rehab Therapy Cardiac Therapy (Routine) - Closed Specialty Diagnoses / Procedures Referred By Contact Refer red To Contact CARDIAC REHAB Diagnoses Medicare// NAY Requested order/recs [facility] Procedures EVALUATION 105 [facility] [address] [place] [address] Phone: Fax: Referral ID Status Reason Start Date Expiration Date Visits V isits Requested Authorized FR -CR Closed 12/18/2015 03/01/2016 36 36 ([id number]) Encounter Details Date Type Department Care Team Description 12/24/2015 Hospital Encounter [facility] Cardiac Big , Alex Mas MD [address] [facility] 100 [place] [address] and Pulmonary 1, Rh Cardiac Rehab Rehabilitation [facility] [address] [facility] [address] [place] [address] Social History Tobacco Use [...] 0 07/31 1200 MG OR HOURS NEEDED [id number]: Bronchitis acute pravastatin (PRAVACHOL) Take 1 tablet [...] on filedocumented in this encounter Care Teams Space Control Supervisor Relationship Specialty Start Date End Date Tiffany Leonard MD PCP - General 04/16/01 05/23/21 documented as of this encounter
--- OUTSIDE RECORDS SUMMARY | 2022-02-03 08:03 | XMS_ITS | Encounter Summary ---
:1945 Author Organization [place] Address [address] [place] [address]. [place] [address] Care Team Providers Name Role Phone Tiffany Leonard MD Primary Care Provider [phone] Reason for Visit Rehab Therapy Cardiac Therapy (Routine) - Closed Specialty Diagnoses / Procedures Referred By Contact Refer red To Contact CARDIAC REHAB Diagnoses Medicare// NAY Requested order/recs [facility] Procedures EVALUATION 105 [facility] [address] [place] [address] Phone: Fax: Referral ID Status Reason Start Date Expiration Date Visits V isits Requested Authorized FR -CR Closed 12/18/2015 03/01/2016 36 36 ([id number]) Encounter Details Date Type Department Care Team Description 01/23/2016 Hospital Encounter [facility] Cardiac Big , Alex Mas MD 225 [facility] 100 [place] [address] and Pulmonary 1, Rh Cardiac Rehab Rehabilitation [facility] [address] [facility] [address] [place] [address] Social History Tobacco Use [...] 0 07/31 1200 MG OR HOURS NEEDED [id number]: Bronchitis acute pravastatin (PRAVACHOL) Take 1 tablet [...] on filedocumented in this encounter Care Teams Supervisor Seaming Relationship Specialty Start Date End Date Tiffany Leonard MD PCP - General 04/16/01 05/23/21 documented as of this encounter
--- OUTSIDE RECORDS SUMMARY | 2022-02-03 08:03 | XMS_ITS | Encounter Summary ---
:1945 Author Organization [place] Address [address] [place] [address]. [place] [address] Care Team Providers Name Role Phone Tiffany Leonard MD Primary Care Provider [phone] Reason for Visit Rehab Therapy Cardiac Therapy (Routine) - Closed Specialty Diagnoses / Procedures Referred By Contact Refer red To Contact CARDIAC REHAB Diagnoses Medicare// NAY Requested order/recs [facility] Procedures EVALUATION [facility] [address] [place] [address] Phone: Fax: Referral ID Status Reason Start Date Expiration Date Visits V isits Requested Authorized FR -CR Closed 12/18/2015 03/01/2016 36 36 ([id number]) Encounter Details Date Type Department Care Team Description 01/03/2016 Hospital Encounter [facility] Cardiac Big gs, Alex Mas MD [address] [facility] 100 [place] [address] and Pulmonary 2, Rh Cardiac Rehab Rehabilitation [facility] [address] [facility] [address] [place] [address] Social History Tobacco Use [...] 0 07/31 1200 MG OR HOURS NEEDED [id number]: Bronchitis acute pravastatin (PRAVACHOL) Take 1 tablet [...] on filedocumented in this encounter Care Teams Metal Crafts Teacher Relationship Specialty Start Date End Date Tiffany Leonard MD PCP - General 04/16/01 05/23/21 documented as of this encounter
--- OUTSIDE RECORDS SUMMARY | 2022-02-03 08:03 | XMS_ITS | Encounter Summary ---
:1945 Author Organization [place] Address [address] [place] [address]. [place] [address] Care Team Providers Name Role Phone Tiffany Leonard MD Primary Care Provider [phone] Reason for Visit Rehab Therapy Cardiac Therapy (Routine) - Closed Specialty Diagnoses / Procedures Referred By Contact Refer red To Contact CARDIAC REHAB Diagnoses Medicare// NAY Requested order/recs [facility] Procedures EVALUATION 105 [facility] [address] [place] [address] Phone: Fax: Referral ID Status Reason Start Date Expiration Date Visits V isits Requested Authorized FR -CR Closed 12/18/2015 03/01/2016 36 36 ([id number]) Encounter Details Date Type Department Care Team Description 01/16/[address] [facility] Cardiac Big , Alex Mas MD [address] [facility] 100 [place] [address] and Pulmonary 1, Rh Cardiac Rehab Rehabilitation [facility] [address] [facility] [address] [place] [address] Social History Tobacco Use [...] 0 07/31 1200 MG OR HOURS NEEDED [id number]: Bronchitis acute pravastatin (PRAVACHOL) Take 1 tablet [...] on filedocumented in this encounter Care Teams Custom Grinder Relationship Specialty Start Date End Date Tiffany Leonard MD PCP - General 04/16/01 05/23/21 documented as of this encounter
--- OUTSIDE RECORDS SUMMARY | 2022-02-03 08:03 | XMS_ITS | Encounter Summary ---
:1945 Author Organization [place] Address [address] [place] [address]. [place] [address] Care Team Providers Name Role Phone Tiffany Leonard MD Primary Care Provider [phone] Reason for Visit Rehab Therapy Cardiac Therapy (Routine) - Closed Specialty Diagnoses / Procedures Referred By Contact Refer red To Contact CARDIAC REHAB Diagnoses Medicare// NAY Requested order/recs [facility] Procedures EVALUATION 105 [facility] [address] [place] [address] Phone: Fax: Referral ID Status Reason Start Date Expiration Date Visits V isits Requested Authorized FR -CR Closed 12/18/2015 03/01/2016 36 36 ([id number]) Encounter Details Date Type Department Care Team Description 01/28/2016 Hospital Encounter [facility] Cardiac Big , Alex Mas MD [address] [facility] 100 [place] [address] and Pulmonary 1, Rh Cardiac Rehab Rehabilitation [facility] [address] [facility] [address] [place] [address] Social History Tobacco Use [...] 0 07/31 1200 MG OR HOURS NEEDED [id number]: Bronchitis acute pravastatin (PRAVACHOL) Take 1 tablet [...] on filedocumented in this encounter Care Teams Pipe Manufacture Supervisor Relationship Specialty Start Date End Date Tiffany Leonard MD PCP - General 04/16/01 05/23/21 documented as of this encounter
--- OUTSIDE RECORDS SUMMARY | 2022-02-03 08:03 | XMS_ITS | Encounter Summary ---
:1945 Author Organization [place] Address [address] [place] [address] Care Team Providers Name Role Phone Jr Landeros MD Primary Care Provider [phone] Jr Landeros MD Unavailable Reason for Visit Reason Onset Date Comments Medication Request 05/31/2021 Gabapentin 600 MG Encounter Details Date Type Department Care Team Description 05/31/2021 Telephone [facility] Jr Landeros ication Request Clinic Darrian Houston MD (Gabapentin 600 MG) [address] [facility] [address] [place] [address] [place], [place] [phone] (Wo rk) [address] [phone] Social History Tobacco Use Types Packs/Day Years [...] limb documented in this encounter Care Teams Supervisor Inventory Merchandising Relationship Specialty Start Date End Date Jr Landeros MD PCP - General Internal Medicine 05/24/21 [address] [place], [place] [address] Jr Landeros MD Assigned PCP 05/26/21 [address] [address] documented as of this encounter
--- OUTSIDE RECORDS SUMMARY | 2022-02-03 08:03 | XMS_ITS | Encounter Summary ---
:1945 Author Organization [place] Address [address] [place] [address]. [place] [address] Care Team Providers Name Role Phone Tiffany Leonard MD Primary Care Provider [phone] Reason for Visit Rehab Therapy Cardiac Therapy (Routine) - Closed Specialty Diagnoses / Procedures Referred By Contact Refer red To Contact CARDIAC REHAB Diagnoses Medicare// NAY Requested order/recs [facility] Procedures EVALUATION 105 [facility] [address] [place] [address] Phone: Fax: Referral ID Status Reason Start Date Expiration Date Visits V isits Requested Authorized FR -CR Closed 12/18/2015 03/01/2016 36 36 ([id number]) Encounter Details Date Type Department Care Team Description 01/25/2016 Hospital Encounter [facility] Cardiac Big , Alex Mas MD 225 [facility] N [facility] 100 [place] [address] and Pulmonary 1, Rh Cardiac Rehab Rehabilitation [facility] [address] [facility] [address] [place] [address] Social History Tobacco Use [...] 0 07/31 1200 MG OR HOURS NEEDED [id number]: Bronchitis acute pravastatin (PRAVACHOL) Take 1 tablet [...] on filedocumented in this encounter Care Teams Director Federal Relationship Specialty Start Date End Date Tiffany Leonard MD PCP - General 04/16/01 05/23/21 documented as of this encounter
--- OUTSIDE RECORDS SUMMARY | 2022-02-03 08:03 | XMS_ITS | Encounter Summary ---
:1945 Author Organization [place] Address [address] [place] [address] Care Team Providers Name Role Phone Jr Landeros MD Primary Care Provider [phone] Jr Landeros MD Unavailable Encounter Details [...] on filedocumented in this encounter Care Teams Nanotechnologist Relationship Specialty Start Date End Date Jr Landeros MD PCP - General Internal Medicine 05/24/21 [address] [place] [address] Jr Landeros MD Assigned PCP 05/26/21 [address] [id number] documented as of this encounter
--- OUTSIDE RECORDS SUMMARY | 2022-02-03 08:03 | XMS_ITS | Encounter Summary ---
:1945 Author Organization [place] Address [address] [place] [address]. [place] [address] Care Team Providers Name Role Phone Tiffany Leonard MD Primary Care Provider [phone] Reason for Visit Rehab Therapy Cardiac Therapy (Routine) - Closed Specialty Diagnoses / Procedures Referred By Contact Refer red To Contact CARDIAC REHAB Diagnoses Medicare// NAY Requested order/recs [facility] Procedures EVALUATION 105 [facility] [address] [place] [address] Phone: Fax: Referral ID Status Reason Start Date Expiration Date Visits V isits Requested Authorized FR -CR Closed 12/18/2015 03/01/2016 36 36 ([id number]) Encounter Details Date Type Department Care Team Description 01/07/2016 Hospital Encounter [facility] Cardiac Big , [place] Mas MD [facility] 100 [place] [address] and Pulmonary 1, Rh Cardiac Rehab [facility] [address] [facility] [address] [place] [address] Social History Tobacco Use [...] 0 07/31 1200 MG OR HOURS NEEDED [id number]: Bronchitis acute pravastatin (PRAVACHOL) Take 1 tablet [...] on filedocumented in this encounter Care Teams Carbon Accountant Relationship Specialty Start Date End Date Tiffany Leonard MD PCP - General 04/16/01 05/23/21 documented as of this encounter
--- OUTSIDE RECORDS SUMMARY | 2022-02-03 08:03 | XMS_ITS | Encounter Summary ---
:1945 Author Organization [place] Address [address] [place] [address]. [place] [address] Care Team Providers Name Role Phone Tiffany Leonard MD Primary Care Provider [phone] Reason for Visit Rehab Therapy Cardiac Therapy (Routine) - Closed Specialty Diagnoses / Procedures Referred By Contact Refer red To Contact CARDIAC REHAB Diagnoses Medicare// NAY Requested order/recs [facility] Procedures EVALUATION [address] [place] [address] [address] [place] [address] Phone: Fax: Referral ID Status Reason Start Date Expiration Date Visits V isits Requested Authorized FR -CR Closed 12/18/2015 03/01/2016 36 36 ([id number]) Encounter Details Date Type Department Care Team Description 01/04/2016 Hospital Encounter [facility] Cardiac Big , [place] Mas MD 225 [facility] 100 [place] [address] and Pulmonary 1, Rh Cardiac Rehab Rehabilitation [facility] [address] [facility] [address] [place] [address] Social History Tobacco Use [...] 0 07/31 1200 MG OR HOURS NEEDED [id number]: Bronchitis acute pravastatin (PRAVACHOL) Take 1 tablet [...] on filedocumented in this encounter Care Teams Agricultural Extension Educator Relationship Specialty Start Date End Date Tiffany Leonard MD PCP - General 04/16/01 05/23/21 documented as of this encounter
--- OUTSIDE RECORDS SUMMARY | 2022-02-03 08:03 | XMS_ITS | Encounter Summary ---
:1945 Author Organization [place] Address [address] [place] [address]. [place] [address] Care Team Providers Name Role Phone Tiffany Leonard MD Primary Care Provider [phone] Reason for Visit Rehab Therapy Cardiac Therapy (Routine) - Closed Specialty Diagnoses / Procedures Referred By Contact Refer red To Contact CARDIAC REHAB Diagnoses Medicare// NAY Requested order/recs [facility] Procedures EVALUATION [address] [facility] [address] [place] [address] Phone: Fax: Referral ID Status Reason Start Date Expiration Date Visits V isits Requested Authorized FR -CR Closed 12/18/2015 03/01/2016 36 36 ([id number]) Encounter Details Date Type Department Care Team Description 02/01/2016 Hospital Encounter [facility] Cardiac Big gs, [place] Mas MD [address] [facility] 100 [place] [address] and Pulmonary 2, Rh Cardiac Rehab Rehabilitation [facility] [address] [facility] [address] [place] [address] Social History Tobacco Use [...] (156 lb 9.6 oz) 02/01/2016 1:00 PM YARN PREPARATION SUPERVISOR Height 165.1 cm (5' 5) 02/01/2016 1:00 PM YARN PREPARATION SUPERVISOR Body Mass Index 26.06 02/01/2016 1:00 PM YARN PREPARATION SUPERVISOR documented in this encounter Medications at Time [...] 0 07/31 1200 MG OR HOURS NEEDED [id number]: Bronchitis acute pravastatin (PRAVACHOL) Take 1 tablet [...] Diagnosis (None) Significant Past CV History Previous ID Comorbidities DM;Previous ID Other Medical History History of breast cancer s/p mastectomy and chemotherapy. 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 Lead up symptoms Lightheadedness, shortness of breath, and chest tightness. Hospital Location [facility] Hospital Discharge Date 12/11/15 Signs and Symptoms Post Hospital Discharge None Outpatient Cardiac Rehab Start Date 12/20/[address] 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 PT [facility] discharge to continue a home exercise program to decrease cardiac risk. Goal #1 Target Date 01/24/16 Goal #1 Progress Towards Goal 01/01/2016 PT has started to walk on her treadmill 2 days per week at home for 20 minutes. She also walked one day at the [employer]. She generally does at least 6000 steps [...] needed Learning Assessment Learner Patient Primary Language Danish Preferred Learning Style Reading Barriers to Learning No barriers noted Patient Education Education recommended Anatomy and Physiology of the Heart;Blood Pressure;Diabetes;Exercise Principles;Medication Overview;Muscle Conditioning;Nutrition;Risk Factors;Stress Management Education classes attended Patient Declined/Refused All Education PREPARATION SUPERVISOR documented in this encounter Miscellaneous Notes Addendum Note - Brenda Sarabia OT - 02/01/2016 11:59 PM CSTEncounter addended by: Brenda Sarabia OT on: 02/04/2016 11:42 AM
Documentation filed: Episodes PREPARATION SUPERVISOR documented in this encounter Plan of Treatment Not on filedocumented as of this encounter Visit Diagnoses Not on filedocumented in this encounter Care Teams Supervisor Phosphatic Fertilizer Relationship Specialty Start Date End Date Tiffany Leonard MD PCP - General 04/16/01 05/23/21 documented as of this encounter
--- OUTSIDE RECORDS SUMMARY | 2022-02-03 08:03 | XMS_ITS | Encounter Summary ---
:1945 Author Organization [place] Address [address] [place] [address] Care Team Providers Name Role Phone Tiffany Leonard MD Primary Care Provider [phone] Reason for Visit Rehab Therapy Cardiac Therapy (Routine) - Closed Specialty Diagnoses / Procedures Referred By Contact Refer red To Contact CARDIAC REHAB Diagnoses Medicare// NAY Requested order/recs [facility] Procedures EVALUATION [address] [place] [address] [address] [place] [address] Phone: Fax: Referral ID Status Reason Start Date Expiration Date Visits V isits Requested Authorized [facility] -CR Closed 12/18/2015 03/01/2016 36 36 ([id number]) Encounter Details Date Type Department Care Team Description 01/11/2016 Hospital Encounter [facility] Admit, Dr Srinivasan Cardiac and Pulmonary [facility] [address] [place] [address] Rehabilitation 1, Rh Cardiac Rehab [place] [id number] [place] [address] [address] [place] [address] Social History Tobacco Use Types [...] 0 07/31 1200 MG OR HOURS NEEDED [id number]: Bronchitis acute pravastatin (PRAVACHOL) Take 1 tablet [...] on filedocumented in this encounter Care Teams Cart Pusher Relationship Specialty Start Date End Date Tiffany Leonard MD PCP - General 04/16/01 05/23/21 documented as of this encounter
--- OUTSIDE RECORDS SUMMARY | 2022-02-03 08:03 | XMS_ITS | Encounter Summary ---
:1945 Author Organization [place] Address [address] [place] [address] Care Team Providers Name Role Phone Jr Landeros MD Primary Care Provider [phone] Jr Landeros MD Unavailable Reason for Visit Reason Comments Cellulitis Encounter Details Date Type Department Care Team Description 08/01/2021 Emergency [facility] Emergency Dept [address] [place] [address] Social History Tobacco Use Types Packs/Day Years [...] 0 07/31 1200 MG OR HOURS NEEDED [id number]: Bronchitis acute pravastatin (PRAVACHOL) 40 Take 1 [...] on filedocumented in this encounter Care Teams Nitro Worker Relationship Specialty Start Date End Date Jr Landeros MD PCP - General Internal Medicine 05/24/21 [address] [place], [place] [address] Jr Landeros MD Assigned PCP 05/26/21 [address] [address] documented as of this encounter
--- OUTSIDE RECORDS SUMMARY | 2022-02-03 08:03 | XMS_ITS | Encounter Summary ---
:1945 Author Organization [place] Address [address] [place] [address]. [place] [address] Care Team Providers Name Role Phone Tiffany Leonard MD Primary Care Provider [phone] Reason for Visit Rehab Therapy Cardiac Therapy (Routine) - Closed Specialty Diagnoses / Procedures Referred By Contact Refer red To Contact CARDIAC REHAB Diagnoses Medicare// NAY Requested order/recs [facility] Procedures EVALUATION 105 [facility] [address] [place] [address] Phone: Fax: Referral ID Status Reason Start Date Expiration Date Visits V isits Requested Authorized FR -CR Closed 12/18/2015 03/01/2016 36 36 ([id number]) Encounter Details Date Type Department Care Team Description 01/21/2016 Hospital Encounter [facility] Cardiac Big , Alex Mas MD [facility] 100 [place] [address] and Pulmonary 1, Rh Cardiac Rehab Rehabilitation [facility] [address] [facility] [address] [place] [address] Social History Tobacco Use [...] 0 07/31 1200 MG OR HOURS NEEDED [id number]: Bronchitis acute pravastatin (PRAVACHOL) Take 1 tablet [...] on filedocumented in this encounter Care Teams Assistant Professor Of Business Relationship Specialty Start Date End Date Tiffany Leonard MD PCP - General 04/16/01 05/23/21 documented as of this encounter
--- OUTSIDE RECORDS SUMMARY | 2022-02-03 08:03 | XMS_ITS | Encounter Summary ---
:1945 Author Organization [place] Address [address] [place] [address] Care Team Providers Name Role Phone Jr Landeros MD Primary Care Provider [phone] Reason for Visit Reason Comments Musculoskeletal Problem right Encounter Details Date Type Department Care Team Description 05/24/2021 Office Visit [facility] Jr Lanedros n of right upper Clinic Darrian Houston MD arm (Primary Dx) [address] [place], [place] [address] [address] [place], [place] [phone] (Wo rk) [address] [phone] Social History Tobacco Use Types Packs/Day Years [...] or fail to improve. Jr Landeros MD [facility] 75 [facility] who [...] limb documented in this encounter Care Teams Horticulture Professor Relationship Specialty Start Date End Date Jr Landeros MD PCP - General Internal Medicine 05/24/21 [place] [address] documented as of this encounter
--- OUTSIDE RECORDS SUMMARY | 2022-02-03 08:03 | XMS_ITS | Encounter Summary ---
:1945 Author Organization [place] Address [address] [place] [address] Care Team Providers Name Role Phone Jr Landeros MD Primary Care Provider [phone] Encounter Details Date Type Department Care [...] on filedocumented in this encounter Care Teams Textile Screen Printer Relationship Specialty Start Date End Date Jr Landeros MD PCP - General Internal Medicine 05/24/21 [address] [place] [address] documented as of this encounter
--- OUTSIDE RECORDS SUMMARY | 2022-02-03 08:04 | XMS_ITS | Encounter Summary ---
:1945 Author Organization [place] Address [address] [place] [address]. [place] [address] Care Team Providers Name Role Phone Tiffany Leonard MD Primary Care Provider [phone] Reason for Visit Reason Onset Date Comments Refill Request 01/25/2013 pravastatin Encounter Details Date Type Department Care Team Description 01/25/2013 Refill [facility] Tiffany Leonard R efill Request Clinic Cindy BARRIENTOS (pravastatin) [address] [address] [facility] [place] [address] [phone] Social History Tobacco Use Types Packs/Day Years [...] 04/12/12, LDL 79. Refilled per [facility] protocol. ITUTIONAL CUSTODIAN documented in this encounter Plan of Treatment Not on filedocumented as of this encounter Visit Diagnoses Diagnosis Hyperlipidemia LDL goal <100 - Primary Other and unspecified hyperlipidemia documented in this encounter Care Teams Sap Director Relationship Specialty Start Date End Date Tiffany Leonard MD PCP - General 04/16/01 05/23/21 documented as of this encounter
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
--- OUTSIDE RECORDS SUMMARY | 2022-02-03 08:04 | XMS_ITS | Encounter Summary ---
:1945 Author Organization [place] Address [address] [place] [address]. [place] [address] Care Team Providers Name Role Phone Tiffany Leonard MD Primary Care Provider [phone] Reason for Visit Reason Onset Date Comments Refill Request 06/16/2011 Pravachol Encounter Details Date Type Department Care Team Description 06/16/2011 MyC Refill [facility] Tiffany Leonard [facility] Tammy Marinelli MD (Pravachol) [address] [address] [address] [place] [address] [phone] Social History Tobacco Use Types Packs/Day Years [...] [Tiffany Leonard MD, ] Preferred pharmacy: [facility] Comment: I would like to request a refill of this Rx. documented in this encounter Plan of Treatment Not on filedocumented as of this encounter Visit Diagnoses Diagnosis Hyperlipidemia LDL goal <100 Other and unspecified hyperlipidemia documented in this encounter Care Teams Band Attacher Relationship Specialty Start Date End Date Tiffany Leonard MD PCP - General 04/16/01 05/23/21 documented as of this encounter
--- OUTSIDE RECORDS SUMMARY | 2022-02-03 08:04 | XMS_ITS | Encounter Summary ---
:1945 Author Organization [place] Address [address] [place] [address] Care Team Providers Name Role Phone Tiffany Leonard MD Primary Care Provider [phone] Encounter Details Date Type Department Care Team Description 05/05/2011 Orders Only [facility] Hyp erlipidemia LDL goal <100; [facility] Type 2 diabetes, HbA1C goal < 7% (H); [address] Hyperlipidemia LDL goal <100 [place], [place] [address] Social History Tobacco Use Types Packs/Day [...] diabetes, HbA1C Results for this QUANTITATIVE AM RIVET SPINNER goal < 7% (H) procedure are in the results section. LIPID REFLEX TO Routine 05/05/2011 8:07 Hyperlipidemia LDL Res ults for this DIRECT LDL PANEL AM RIVET SPINNER goal <100 procedure a re in the results section. HEMOGLOBIN A1C Routine 05/05/2011 8:07 Type 2 diabetes, HbA1C Results for this AM RIVET SPINNER goal < 7% (H) procedure are in the results section. COMPREHENSIVE Routine 05/05/2011 8:07 Type 2 diabetes, HbA1C R esults for this METABOLIC PANEL AM RIVET SPINNER goal < 7% (H) procedure are in Hyperlipidemia LDL the resul ts goal <100 section. documented in this encounter Results (ABNORMAL) Comprehensive metabolic panel (05/05/2011 8:07 AM RIVET SPINNER) athologist Signature Sodium 138 133 - 144 [place] mmol/L [facility] Potassium 4.1 3.4 - 5.3 [place] mmol/L [facility] Chloride 99 94 - 109 [place] mmol/L [facility] Carbon Dioxide 27 20 - 32 [place] mmol/L [facility] Anion Gap 12 6 - 17 [place] mmol/L [facility] Glucose 101 (H) 60 - 99 [place] mg/dL [facility] Urea Nitrogen 15 7 - 30 [place] mg/dL [facility] Creatinine 0.59 0.52 - [facility] 1.04 mg/dL [facility] GFR Estimate >90 >60 [place] mL/min/1.7 [facility] m2 LAB GFR Estimate If >90 >60 [place] Black mL/min/1.7 [facility] m2 LAB Calcium 9.6 8.5 - 10.4 [place] mg/dL [facility] Bilirubin Total 0.7 0.2 - 1.3 [place] mg/dL [facility] Albumin 4.1 3.3 - 4.9 [place] g/dL [facility] Comment: Reference range changed on 11/01. Protein Total 7.5 6.8 - 8.8 g/dL [facility] Comment: As of 07, reference range reflects plasma specimen type. Alkaline Phosphatase 71 40 - 150 U/L [facility] ALT 16 0 - 50 U/L [facility] AST 24 0 - 45 U/L [facility] Specimen Anatomical Collection Method Collection Time Receive d Time (Source) Location / / Volume Laterality Blood specimen 05/05/2011 8:07 AM 012 8:08 (specimen) RIVET [facility] AM [facility]IV[facility] SPINNER Tiffany Leonard MD LAB - BLOOD ORDERABLES Performing Organization Address City/State/ZIP Code Phon e Number [facility] [address] [place] [address] [facility] (ABNORMAL) Microalbumin quantitative random urine (05/05/2011 8:07 AM [facility]IV[facility] SPIN[facility]) Patholo gist Method Time Signature Creatinine 57 mg/dL [facility] Urine [facility] Albumin Urine 15 mg/L [facility] mg/L [facility] Albumin Urine 26.49 (H) 0 - 25 [facility] mg/g Cr mg/g Cr [facility] Specimen Anatomical Collection Method Collection Time Receive d Time (Source) Location / / Volume Laterality Urine specimen 05/05/2011 8:07 AM 012 8:09 (specimen) RIVET SPINNER AM RIVET SPINNER Tiffany Leonard MD LAB - URINE ORDERABLES Performing Organization Address City/State/ZIP Code Phon e Number [id number] [place] [address] LABS Hemoglobin A1c (05/05/2011 8:07 AM RIVET SPINNER) athologist Signature Hemoglobin A1C 5.9 4.3 - 6.0 [place] % [facility] Specimen Anatomical Collection Method Collection Time Receive d Time (Source) Location / / Volume Laterality Blood specimen 05/05/2011 8:07 AM 012 8:08 (specimen) RIVET SPINNER AM RIVET SPINNER Tiffany Leonard MD LAB - BLOOD ORDERABLES Performing Organization Address City/State/ZIP Code Phon e Number [facility] [address] [place], [place] [address] [facility] (ABNORMAL) Lipid Profile with reflex to direct LDL (05/05/2011 8:07 AM RIVET SPINNER) athologist Signature Cholesterol 205 (H) 0 - 200 [place] [facility] mg/dL [facility] Comment: LDL Cholesterol is the primary guide to therapy. The NCEP recommends further evaluation of: patients with cholesterol greater than 200 mg/dL if additional risk facto rs are present, cholesterol greater than 240 mg/dL, triglycerides greater than 1 50 mg/dL, or HDL less than 40 mg/dL. Triglycerides 261 (H) 0 - 150 mg/dL [facility] HDL Cholesterol 35 (L) 50 - 110 mg/dL [facility] LDL Cholesterol Calculated 118 0 - 129 mg/dL [facility] Comment: LDL Cholesterol is the primary guide to therapy: LDL-cholesterol goal in high risk patients is <100 mg/dL and in very high risk patients is <70 mg/dL. VLDL-Cholesterol 52 (H) 0 - 30 mg/dL [facility] Cholesterol/HDL Ratio 5.9 (H) 0.0 - 5.0 [facility] Specimen Anatomical Collection Method Collection Time Receive d Time (Source) Location / / Volume Laterality Blood specimen 05/05/2011 8:07 AM 012 8:08 (specimen) RIVET SPINNER AM RIVET SPINNER Tiffany Leonard MD LAB - BLOOD ORDERABLES Performing Organization Address City/State/ZIP Code Phon e Number [address] [address] [facility] documented in this encounter Visit Diagnoses Diagnosis Hyperlipidemia LDL goal <100 Other and unspecified hyperlipidemia Type 2 diabetes, HbA1c goal < 7% (H) Type II or unspecified type diabetes aubrey litus without mention of complication, not stated as uncontrolled documented in this encounter Care Teams Bench Lay Out Technician Relationship Specialty Start Date End Date Tiffany Leonard MD PCP - General 04/16/01 documented as of this encounter
--- OUTSIDE RECORDS SUMMARY | 2022-02-03 08:04 | XMS_ITS | Encounter Summary ---
:1945 Author Organization [facility] Address [address] [place] [address]. [place] [address] Care Team Providers Name Role Phone Tiffany Leonard MD Primary Care Provider [phone] Reason for Visit Reason Onset Date Comments Refill Request 02/16/2012 Cuauhtemoc Encounter Details Date Type Department Care Team Description 02/16/2012 MyC Refill [facility] Tiffany Leonard Refill [facility] Tammy Marinelli MD (Cozaar) [address] [facility] [address] [address] [place] [address] [phone] Social History Tobacco Use Types Packs/Day Years [...] Message handled by Nurse Triage Mirian Chan RAISER Telephone Encounter - Batsheva Kinneythia - 02/17/2012 8:33 AM FORM RAISER Message from Animeeple: Original authorizing provider: Tiffany Leonard MD, MD Mayra Quinn would like a refill of the following medications: losartan (COZAAR) 25 MG tablet [Tiffany Leonard MD, ] Preferred pharmacy: [facility] Comment: Could I get a refill on this Rx - called into [facility] - or faxed. Thank you. 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
--- OUTSIDE RECORDS SUMMARY | 2022-02-03 08:04 | XMS_ITS | Encounter Summary ---
:1945 Author Organization [place] Address Replaced by [facility] [place] [place] [address] Care Team Providers Name Role Phone Tiffany Leonard MD Primary Care Provider [phone] Reason for Visit Reason Comments Diabetes pt fasting for labs HgA1c an d urine to be done PRAVEEN Lipids Encounter Details Date Type Department Care Team Description 12/31/2011 Office Visit [facility] Tiffany Leonard Hyperlipi demia LDL goal <100 (Primary Dx); Clinic Tammy Marinelli MD Type 2 diabetes, HbA1C goal < 7% (H); [address] [address] [address] Dysuria; [address] Other nonspecific finding on examination of urine; JANIA Munoz [place] Hemorrhagic c ystitis; [id number] 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 A1C done today upon arrival to [facility] A1C 6.0 12/31/2011 MICROL 15 05/05/2011 MICROALBUMIN [...] list, Allergies, and Medical/Social/Surgical histories [facility] andupdated as appropriate. Labs reviewed in [facility] BP Readings from Last 3 Encounters: 12/31/11 [...] 7% Comment: A1C 6.0 12/31/2011[facility] Labs reviewed; at goal A1C 5.9 05/05/2011 [...] and reviewing meds and potential side effects. TH PRACTICE MANAGER documented in this encounter Plan of [...] Component Value Ref Test Analysis Performed At [facility] Range Method Time Signature Specimen Midstream Urine FUM Description MICROBIOLOGY Special Specimen [facility] Requests received in MICROBIOLOGY preservative Culture Micro >100,000 [facility] colonies/mL MICROBIOLOGY Escherichia coli Micro Report FINAL [facility] Status 01/02/2012 MICROBIOLOGY Specimen Anatomical Collection Method [...] Organization Address City/State/ZIP Code Phon e Number [address] [address] [facility] MICROBIOLOGY (ABNORMAL) Urine Microscopic (12/31/2011 9:30 AM CDT) [facility] Method Time Signature WBC Urine 10-25 (A) 0 - 2 [facility] /HPF [facility] RBC Urine 5-10 (A) 0 - 2 [facility] /HPF [facility] Squamous Moderate (A) FEW /LPF [facility] Epithelial [facility] /LPF Urine CLINIC LAB Bacteria Urine Moderate (A) NEG /HPF [facility] Specimen Anatomical Collection Method Collection Time Receive d Time (Source) Location / / Volume Laterality 12/31/2011 9:30 AM 2 9:31 CDT AM CDT Tiffany Leonard MD LAB - URINE ORDERABLES Performing Organization Address City/[facility]/ZIP Code Phon e Number [facility] [address] [place] [address] [facility] (ABNORMAL) *UA reflex to Microscopic and Culture (12/31/2011 9:30 AM CDT) [facility] Method Time Signature Color Urine Yellow [facility] Appearance Urine Clear [facility] Glucose Urine Negative NEG mg/dL [facility] Bilirubin Urine Negative NEG [facility] Ketones Urine Negative NEG mg/dL [facility] Specific [place] [facility] 1.025 1.003 - [facility] Urine 1.035 [facility] Blood Urine Moderate (A) NEG [facility] pH Urine 5.0 5.0 - 7.0 [facility] pH [facility] Protein Albumin Trace (A) NEG mg/dL [facility] Urine [facility] Urobilinogen 0.2 0.2 - 1.0 [facility] Urine EU/dL [facility] Nitrite Urine Negative NEG [facility] Leukocyte Trace (A) NEG [facility] Esterase Urine [facility] Source Midstream [facility] Urine [facility] Specimen Anatomical Collection Method Collection Time Receive d Time (Source) Location / / Volume Laterality Urine specimen 12/31/2011 9:30 AM 2 012 9:31 (specimen) CDT AM CDT Tiffany Leonard MD LAB - URINE ORDERABLES Performing Organization Address City/[facility]/ZIP Code Phon e Number [facility] [address] [place], [place] [address] [facility] (ABNORMAL) Microalbumin quantitative random urine (12/31/2011 9:30 AM CDT) Patholo gist Method Time Signature Creatinine 134 mg/dL [facility] Urine [facility] Albumin Urine 50 mg/L [facility] mg/L [facility] Albumin Urine 37.31 (H) 0 - 25 [facility] mg/g Cr mg/g Cr [facility] Specimen Anatomical Collection Method Collection Time Receive d Time (Source) Location / / Volume Laterality Urine specimen 12/31/2011 9:30 AM 012 9:31 (specimen) CDT AM CDT Tiffany Leonard MD LAB - URINE ORDERABLES Performing Organization Address City/[facility]/ZIP Code Phon e Number [facility] [address] [place], [place] [phone] [place] [address] LABS Hemoglobin (12/31/2011 9:30 AM CDT) P athologist Signature Hemoglobin 13.6 11.7 - 15.7 [facility] g/dL [facility] Specimen Anatomical Collection Method Collection Time Receive d Time (Source) Location / / Volume Laterality Blood specimen 12/31/2011 9:30 AM 012 9:31 (specimen) CDT AM CDT Tiffany Leonard MD LAB - BLOOD ORDERABLES Performing Organization Address City/[facility]/ZIP Code Phon e Number [facility] [address] [place], [place] [address] [facility] TSH with free T4 reflex (12/31/2011 9:30 AM CDT) P athologist Signature TSH 1.96 0.4 - 5.0 [facility] [place] mU/L [facility]INIC LAB Specimen Anatomical Collection Method Collection Time Receive d Time (Source) Location / / Volume Laterality Blood specimen 12/31/2011 9:30 AM 012 9:31 (specimen) CDT AM CDT Tiffany Leonard MD LAB - BLOOD ORDERABLES Performing Organization Address City/State/ZIP Code Phon e Number [facility] [address] [place] [address] [facility] Hemoglobin A1c (12/31/2011 9:30 AM CDT) athologist Signature Hemoglobin A1C 6.0 4.3 - 6.0 [facility] % [facility] Specimen Anatomical Collection Method Collection Time Receive d Time (Source) Location / / Volume Laterality Blood specimen 12/31/2011 9:30 AM 012 9:31 (specimen) CDT AM CDT Tiffany Leonard MD LAB - BLOOD ORDERABLES Performing Organization Address City/State/ZIP Code Phon e Number [facility] [address] [place], [place] [address] [facility] Comprehensive metabolic panel (12/31/2011 9:30 AM CDT) athologist Signature Sodium 140 133 - 144 [facility] [place] mmol/L CLINIC LAB Potassium 3.9 3.4 - 5.3 [facility] [place] mmol/L [facility]INIC LAB Chloride 102 94 - 109 [facility] [place] mmol/L [facility]IN[facility] LAB Carbon Dioxide 27 20 - 32 [facility] [place] mmol/L [facility] Anion Gap 11 6 - 17 [facility] [place] mmol/L [facility] LAB Glucose 89 60 - 99 [facility] [place] mg/dL [facility]IN[facility] LAB Urea Nitrogen 17 7 - 30 [facility] [place] mg/dL [facility]IN[facility] LAB Creatinine 0.60 0.52 - [facility] [place] 1.04 mg/dL CLINIC LAB GFR Estimate >90 >60 [facility] [place] mL/min/1.7 CLINIC LAB m2 GFR Estimate If >90 >60 [facility] [place] Black mL/min/1.7 CLINIC LAB m2 Calcium 9.3 8.5 - 10.4 [facility] [place] mg/dL [facility]IN[facility] LAB Bilirubin Total 0.6 0.2 - 1.3 [facility] [place] mg/dL [facility]INIC LAB Albumin 4.0 3.3 - 4.9 [facility] [place] g/dL [facility] LAB Comment: Reference range changed on 11/01. Protein Total 6.9 6.8 - 8.8 g/dL [facility] Comment: As of 07, reference range reflects plasma specimen type. Alkaline Phosphatase 74 40 - 150 U/L [facility] ALT 27 0 - 50 U/L [facility] LAB AST 19 0 - 45 U/L [facility] LAB Specimen Anatomical Collection Method Collection Time Receive d Time (Source) Location / / Volume Laterality Blood specimen 12/31/2011 9:30 AM 012 9:31 (specimen) CDT AM CDT Tiffany Leonard MD LAB - BLOOD ORDERABLES Performing Organization Address City/[facility]/ZIP Code Phon e Number [facility] [address] [place] [address] [phone] [facility] (ABNORMAL) Lipid panel reflex to direct LDL (12/31/2011 9:30 AM CDT) athologist Signature Cholesterol 174 0 - 200 [facility] mg/dL CLINIC LAB Comment: LDL Cholesterol is the primary guide to therapy. The NCEP recommends further evaluation of: patients with cholesterol greater than 200 mg/dL if additional risk facto rs are present, cholesterol greater than 240 mg/dL, triglycerides greater than 1 50 mg/dL, or HDL less than 40 mg/dL. Triglycerides 199 (H) 0 - 150 mg/dL [facility] HDL Cholesterol 34 (L) 50 - 110 mg/dL [facility] LDL Cholesterol Calculated 100 0 - 129 mg/dL [facility] Comment: LDL Cholesterol is the primary guide to therapy: LDL-cholesterol goal in high risk patients is <100 mg/dL and in very high risk patients is <70 mg/dL. VLDL-Cholesterol 40 (H) 0 - 30 mg/dL [facility] Cholesterol/HDL Ratio 5.1 (H) 0.0 - 5.0 [facility] Specimen Anatomical Collection Method Collection Time Receive d Time (Source) Location / / Volume Laterality Blood specimen 12/31/2011 9:30 AM 012 9:31 (specimen) CDT AM CDT Tiffany Leonard MD LAB - BLOOD ORDERABLES Performing Organization Address City/[facility]/ZIP Code Phon e Number [facility] [address] [place] [address] [facility] documented in this encounter Visit Diagnoses [...] uncontrolled documented in this encounter Care Teams Pocket And Pulley Machine Operator Relationship Specialty Start Date End Date Tiffany Leonard MD PCP - General 04/16/01 documented as of this encounter
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
--- OUTSIDE RECORDS SUMMARY | 2022-02-03 08:04 | XMS_ITS | Encounter Summary ---
:1945 Author Organization [place] Address [address] [place] [address] Care Team Providers Name Role Phone Tiffany Leonard MD Primary Care Provider [phone] Reason for Visit Reason Comments Lipids follow up on labs done in [facility] Diabetes Encounter Details Date Type Department Care Team Description 07/14/2011 Office Visit [facility] Tiffany Leonard Hyperlipi demia LDL goal <100 (Primary Dx); Clinic Tammy Marinelli MD Gastritis; [address] [address] [address] Unspecified cardiovascular disease; [address] Type 2 diabetes, HbA1C goal < 7% (H); [place] [address] [place] [address] [phone] Social History Tobacco Use Types Packs/Day Years [...] related concerns- overall OK; eval done at [facility]; doing well on low dose beta garret. [...] list, Allergies, and Medical/Social/Surgical histories reviewed in [facility] andupdated as appropriate. Labs reviewed in [...] neuropathy documented in this encounter Care Teams Web Interface Developer Relationship Specialty Start Date End Date Tiffany Leonard MD PCP - General 04/16/01 documented as of this encounter
--- OUTSIDE RECORDS SUMMARY | 2022-02-03 08:04 | XMS_ITS | Encounter Summary ---
:1945 Author Organization [facility] Address [address] [place] [address] Care Team Providers Name Role Phone Tiffany Leonard MD Primary Care Provider [phone] Reason for Visit Rehab Therapy Cardiac Therapy (Routine) - Closed Specialty Diagnoses / Procedures Referred By Contact Refer red To Contact CARDIAC REHAB Diagnoses Medicare// NAY Requested order/recs [facility] Procedures EVALUATION [address] [place] [address] [address] [place] [address] Phone: Fax: Referral ID Status Reason Start Date Expiration Date Visits V isits Requested Authorized FR -CR Closed 12/18/2015 03/01/2016 36 36 ([id number]) Encounter Details Date Type Department Care Team Description 12/20/2015 Hospital Encounter [facility] Admit, Dr Srinivasan Cardiac and Pulmonary [facility], [facility] [address] [place] [address] Rehabilitation 2, [facility] [place] [id number] [place] [address] [address] [place] [address] Social History Tobacco Use Types [...] 0 07/31 1200 MG OR HOURS NEEDED [id number]: Bronchitis acute pravastatin (PRAVACHOL) Take 1 tablet [...] motivated to lose weight and establish a long-term exercise program to decrease future disease progression. [...] Diagnosis (None) Significant Past CV History Previous CT Comorbidities DM;Previous CT Other Medical History History of breast cancer s/p mastectomy and chemotherapy. 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 Lead up symptoms Lightheadedness, shortness of breath, and chest tightness. Hospital Location [facility] Discharge Date 12/11/15 Signs and Symptoms Post Hospital Discharge None Outpatient Cardiac Rehab Start Date 12/20/[address] 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 Quality of Life: If [...] maximize weight loss goal. PT to join [facility] prior to discharge to continue a home exercise program to decrease cardiac risk. Goal #1 Target Date 01/24/16 Activity/Exercise Comments PT plans to join the [facility]. PT does have a treadmill at [...] 0 Learning Assessment Learner Patient Primary Language Russian Preferred Learning Style Reading Barriers to Learning No barriers noted Patient Education Education recommended Anatomy and Physiology of the Heart;Blood Pressure;Diabetes;Exercise Principles;Medication Overview;Muscle Conditioning;Nutrition;Risk Factors;Stress Management documented in this encounter Plan of Treatment Not on filedocumented as of this encounter Visit Diagnoses Not on filedocumented in this encounter Care Teams Grinding And Spraying Supervisor Relationship Specialty Start Date End Date Tiffany Leonard MD PCP - General 04/16/01 05/23/21 documented as of this encounter
--- OUTSIDE RECORDS SUMMARY | 2022-02-03 08:04 | XMS_ITS | Encounter Summary ---
:1945 Author Organization [place] Address [address] [place] [address]. [place] [address] Care Team Providers Name Role Phone Tiffany Leonard MD Primary Care Provider [phone] Reason for Visit Reason Onset Date Comments Refill Request 04/05/2011 Pravachol Encounter Details Date Type Department Care Team Description 04/05/2011 MyC Refill [facility] Tiffany Leonard Refill [facility] Tammy Marinelli MD (Pravachol) [address] [address] [address] [place] [address] [phone] Social History Tobacco Use Types Packs/Day Years [...] RF-3 Last lipids 10/22/10 LDL-115 Mirian Chan DING CLEANER Telephone Encounter - Shirin Kinney - 04/07/2011 8:56 AM BUILDING CLEANER Message from Astley Clarket: Original authorizing provider: Tiffany Leonard MD, MD Mayra Quinn would like a refill of the following medications: pravastatin (PRAVACHOL) 20 MG tablet [Tiffany Leonard MD, ] Preferred pharmacy: [facility] Comment: I don't think I remembered to ask for a new Rx for Pravastatin...... DING CLEANER documented in this encounter Plan of Treatment Not on filedocumented as of this encounter Visit Diagnoses Diagnosis Hyperlipidemia LDL goal <100 - Primary Other and unspecified hyperlipidemia documented in this encounter Care Teams Hose Finisher Relationship Specialty Start Date End Date Tiffany Leonard MD PCP - General 04/16/01 05/23/21 documented as of this encounter
--- OUTSIDE RECORDS SUMMARY | 2022-02-03 08:04 | XMS_ITS | Encounter Summary ---
:1945 Author Organization [place] Address [address] [place] [address]. [place] [address] Care Team Providers Name Role Phone Tiffany Leonard MD Primary Care Provider [phone] Reason for Visit Reason Onset Date Comments Refill Request 02/15/2013 atenolol Encounter Details Date Type Department Care Team Description 02/15/2013 Refill [facility] Tiffany Leonard R efill Request Clinic Tammy BARRIENTOS (atenolol) [address] [address] [address] [place] [address] [phone] Social History Tobacco Use Types Packs/Day Years [...] - 1.04 mg/dL Final Preethi Franco RN [place] [employer] Work Force OWING MANAGER documented in this encounter Plan of Treatment Not on filedocumented as of this encounter Visit Diagnoses Diagnosis Unspecified cardiovascular disease - Shira mcleod documented in this encounter Care Teams Sizing Machine Operator Relationship Specialty Start Date End Date Tiffany Leonard MD PCP - General 04/16/01 05/23/21 documented as of this encounter
--- OUTSIDE RECORDS SUMMARY | 2022-02-03 08:04 | XMS_ITS | Encounter Summary ---
:1945 Author Organization [place] Address [address] [place] [address]. [place] [address] Care Team Providers Name Role Phone Tiffany Leonard MD Primary Care Provider [phone] Reason for Visit Reason Onset Date Comments Refill Request 07/16/2012 prevacid, tenormin, cozaar, pravachol Encounter Details Date Type Department Care Team Description 07/16/2012 MyC Refill [facility] Tiffany Leonard Refill [facility] Tammy Marinelli MD (prevacid, tenormin, [address] [address] SHAYE coboszaar... [place], [place] [facility] [place] [id number] [phone] Social History Tobacco Use Types Packs/Day Years [...] - 07/16/2012 2:29 PM CDT Message from [employer]ity: Original authorizing provider: Tiffany Leonard MD, MD Mayra Quinn would like a refill of the following medications: LANsoprazole (PREVACID) 15 MG capsule [Tiffany Leonard MD, MD] atenolol (TENORMIN) 25 MG tablet [Tiffany Leonard MD, MD] losartan (COZAAR) 25 MG tablet [Tiffany Leonard MD, MD] pravastatin (PRAVACHOL) 40 MG tablet [Tiffany Leonard MD, ] Preferred pharmacy: [facility] - [address] Comment: Would you ask Dr. Leonard [...] hyperlipidemia documented in this encounter Care Teams Head Of Design Relationship Specialty Start Date End Date Tiffany Leonard MD PCP - General 04/16/01 05/23/21 documented as of this encounter
--- OUTSIDE RECORDS SUMMARY | 2022-02-03 08:04 | XMS_ITS | Encounter Summary ---
:1945 Author Organization [place] Address [address] [place] [address]. [place] [address] Care Team Providers Name Role Phone Tiffany Leonard MD Primary Care Provider [phone] Reason for Visit Reason Onset Date Comments Refill Request 10/27/2011 Accu Check strips & solution Encounter Details Date Type Department Care Team Description 10/27/2011 MyC Refill [facility] Tiffany Leonard Refill Re quest (Accu Clinic Tammy Marinelli MD Check strips & [address] solution) JANIA Munoz [place] [address] [phone] Social History Tobacco Use Types Packs/Day Years [...] uncontrolled documented in this encounter Care Teams Forward Air Controller/Air Officer Relationship Specialty Start Date End Date Tiffany Leonard MD PCP - General 04/16/01 05/23/21 documented as of this encounter
--- OUTSIDE RECORDS SUMMARY | 2022-02-03 08:04 | XMS_ITS | Encounter Summary ---
:1945 Author Organization [place] Address [address] [place] [address]. [place] [address] Care Team Providers Name Role Phone Tiffany Leonard MD Primary Care Provider [phone] Reason for Visit Reason Onset Date Comments Refill Request 12/14/2012 Atenolol Encounter Details Date Type Department Care Team Description 12/14/2012 Refill M [facility] Tiffany Leonard R efill Request Clinic Cindy BARRIENTOS (Atenolol ) [address] [address] [address] [place] [address] [phone] Social History Tobacco Use Types Packs/Day Years [...] I sent her a reminder letter via [employer] and also mailed her a reminder letter [...] Visit Diagnoses Diagnosis Unspecified cardiovascular disease - [facility] documented in this encounter Care Teams Fast Food Delivery Driver Relationship Specialty Start Date End Date Tiffany Leonard MD PCP - General 04/16/01 05/23/21 documented as of this encounter
--- OUTSIDE RECORDS SUMMARY | 2022-02-03 08:04 | XMS_ITS | Encounter Summary ---
:1945 Author Organization [place] Address [address] [place] [address]. [place] [address] Care Team Providers Name Role Phone Tiffany Leonard MD Primary Care Provider [phone] Reason for Referral - Closed Specialty Diagnoses / Procedures Referred By Contact Refer red To Contact Diagnoses Personal history of malignant neoplasm of breast Tiffany Leonard MD Procedures BREAST PROSTHESIS, MASTECTOMY [address]RA [address] [address] Referral ID Status Reason Start Date Expiration Date Visits Requ ested Visits Authorized [id number] Closed 03/03/2012 08/30/2012 1 1 NG CAR WAITER/WAITRESS Reason for Visit Reason Onset Date Comments Refill Request 03/01/2012 Accucheck solution Encounter Details Date Type Department Care Team Description 03/01/[address] [facility] Tiffany Leonard Refill Re [facility] Tammy Marinelli MD (Accucheck solution) [address] [address] [place] [address] [phone] Social History Tobacco Use Types Packs/Day Years [...] Ok per RN protocol Rakel Varghese RN NG CAR WAITER/WAITRESS Telephone Encounter - Shirin Kinney - 03/01/2012 6:16 PM CST Last seen 12/31/11, Horacio Last A1c 12/31/11 (6.0) Accucheck solution refilled Forward for DME NG CAR WAITER/WAITRESS Telephone Encounter - Shirin Kinney - 03/01/2012 6:15 PM DINING CAR WAITER/WAITRESS Message from [employer]: Original authorizing provider: Tiffany Leonard MD, MD Mayra Quinn would like a refill of the following medications: Blood Glucose Calibration (ACCU-CHEK STEPHEN) SOLN [Tiffany Leonard MD, MD] Preferred pharmacy: [facility] Comment: Could you please ask Dr. Leonard to write a Rx for three (3) mastectomy bras? If you could fax this prescription to [facility] [email or web address] # [phone] - it would be greatly appreciated. Thank you.....................Mayra Mcintosh, I think I checked the right box above. My glucose monitor isn't working. NG CAR WAITER/WAITRESS documented in this encounter Plan of Treatment Not on filedocumented as of this encounter Visit Diagnoses Diagnosis Type 2 diabetes, HbA1c goal < 7% (H) - P rimary Type II or unspecified type diabetes aubrey litus without mention of complication, not stated as uncontrolled PERS HX OF BREAST MALIGNANCY Personal history of malignant neoplasm o f breast documented in this encounter Care Teams Target Aircraft Controller Relationship Specialty Start Date End Date Tiffany Leonard MD PCP - General 04/16/01 05/23/21 documented as of this encounter
--- OUTSIDE RECORDS SUMMARY | 2022-02-03 08:04 | XMS_ITS | Encounter Summary ---
:1945 Author Organization [place] Address [address] [place] [address]. [place] [address] Care Team Providers Name Role Phone Tiffany Leonard MD Primary Care Provider [phone] Reason for Visit Reason Onset Date Comments Refill Request 11/09/2012 Encounter Details Date Type Department Care Team Description 11/09/[address] [facility] Tiffany Leonard MD Refill Request [place] [address] [place] [address] [place] [address] [phone] Social History Tobacco Use Types Packs/Day Years [...] Reminder letter sent. Medication approved PSO Silke Brisceo RN documented in this encounter Plan of Treatment Not on filedocumented as of this encounter Visit Diagnoses Diagnosis Type 2 diabetes, HbA1c goal < 7% (H) - P rimary Type II or unspecified type diabetes aubrey litus without mention of complication, not stated as uncontrolled documented in this encounter Care Teams Non Destructive Evaluation Specialist Relationship Specialty Start Date End Date Tiffany Leonard MD PCP - General 04/16/01 05/23/21 documented as of this encounter
--- OUTSIDE RECORDS SUMMARY | 2022-02-03 08:04 | XMS_ITS | Encounter Summary ---
:1945 Author Organization [place] Address [address] [place] [address]. [place] [address] Care Team Providers Name Role Phone Tiffany Leonard MD Primary Care Provider [phone] Reason for Visit Reason Onset Date Comments Refill Request 11/12/2011 test strips Encounter Details Date Type Department Care Team Description 11/12/2011 Refill M [facility] Tiffany Leonard R efill Request (test Clinic Tammy BARRIENTOS strips) [address] [address] [address] [place], [place] [phone] Social History Tobacco Use Types Packs/Day Years [...] how many times per day pt tests Rakle Varghese RN documented in this encounter Plan of Treatment Not on filedocumented as of this encounter Visit Diagnoses Diagnosis Type 2 diabetes, HbA1c goal < 7% (H) - P rimary Type II or unspecified type diabetes aubrey litus without mention of complication, not stated as uncontrolled documented in this encounter Care Teams Repair Welder Relationship Specialty Start Date End Date Tiffany Leonard MD PCP - General 04/16/01 05/23/21 documented as of this encounter
--- OUTSIDE RECORDS SUMMARY | 2022-02-03 08:04 | XMS_ITS | Encounter Summary ---
:1945 Author Organization [place] Address [facility] [place] [address] Care Team Providers Name Role Phone Tiffany Leonard MD Primary Care Provider [phone] Encounter Details Date Type Department Care Team Description 04/09/2011 Orders Only [facility] Tiffany Leonard ERRONEOUS Clinic Cindy Marinelli MD ENCOUNTER--DISREGARD [address] (Primary Dx) [place] [phone] Social History Tobacco Use Types Packs/Day Years [...] Primary documented in this encounter Care Teams Maintenance Mechanic Telephone Relationship Specialty Start Date End Date Tiffany Leonard MD PCP - General 04/16/01 05/23/21 documented as of this encounter
--- OUTSIDE RECORDS SUMMARY | 2022-02-03 08:04 | XMS_ITS | Encounter Summary ---
:1945 Author Organization [place] Address [address] [place] [address]. [place] [address] Care Team Providers Name Role Phone Tiffany Leonard MD Primary Care Provider [phone] Reason for Visit Reason Onset Date Comments Refill Request 06/12/2011 pravastatin Encounter Details Date Type Department Care Team Description 06/12/2011 MyC Refill [facility] Tiffany Leonard [facility] Tammy Marinelli MD (pravastatin) [address] [address] [place] [address] [phone] Social History Tobacco Use Types Packs/Day Years [...] - 06/12/2011 2:32 PM CDT Message from [email or web address]: Original authorizing provider: Tiffany Leonard MD, MD Mayra Quinn would like a refill of the following medications: pravastatin (PRAVACHOL) 20 MG tablet [Tiffany Leonard MD, ] Preferred pharmacy: [facility] [place] [facility] Comment: I WOULD LIKE TO REQUEST A RENEWAL OF THE ABOVE MEDICATION - TO BE FAXED TO [facility]. THANK YOU! documented in this encounter Plan of Treatment Not on filedocumented as of this encounter Visit Diagnoses Diagnosis Hyperlipidemia LDL goal <100 - Primary Other and unspecified hyperlipidemia documented in this encounter Care Teams Automatic Pattern Edger Relationship Specialty Start Date End Date Tiffany Leonard MD PCP - General 04/16/01 05/23/21 documented as of this encounter
--- OUTSIDE RECORDS SUMMARY | 2022-02-03 08:04 | XMS_ITS | Encounter Summary ---
:1945 Author Organization [facility] Address [address] [place] [address] Care Team Providers Name Role Phone Tiffany Leonard MD Primary Care Provider [phone] Reason for Visit Reason Comments [facility]- sent to chart prep for ov with dr enriquez on 12/24/15 in [place] Encounter Details Date Type Department Care Team Description 12/05/2015 Documentation Only [facility] Him Use Only, Oth er (recs received [facility] Donita Fung Md For Event from [address] [place] [address] Social History [...] on filedocumented in this encounter Care Teams Railroad Switchman Relationship Specialty Start Date End Date Tiffany Leonard MD PCP - General 04/16/01 05/23/21 documented as of this encounter
--- OUTSIDE RECORDS SUMMARY | 2022-02-03 08:04 | XMS_ITS | Encounter Summary ---
:1945 Author Organization [place] Address [address] [place] [address]. [place] [address] Care Team Providers Name Role Phone Tiffany Leonard MD Primary Care Provider [phone] Reason for Visit Reason Onset Date Comments Refill Request 03/05/2012 josy test strips Encounter Details Date Type Department Care Team Description 03/05/2012 Refill M [facility] Tiffany Leonard R efill Request (josy [facility] Cindy BARRIENTOS test strips) [address] [address] [address] [place], [place] [address] [phone] Social History Tobacco Use Types Packs/Day Years Used Date Smoking Tobacco: Former Cigarettes Quit : 05/14/1988 Smokeless Tobacco: Never Alcohol Use Standard Drinks/Week Comments No 0 (1 standard drink = 0.6 oz pure alcoho l) Sex Assigned at Date Recorded Female 05/22/2021 3:03 PM CDT documented as of this encounter Miscellaneous Notes Telephone Encounter - Rakel Varghese - 03/05/2012 8:54 AM CST RF request for josy accu chek test strips Ok per RN protocol x12mos. Last ov 12-31-11 BP Readings from Last 1 Encounters: 12/31/11 120/68 Recent Labs Lab Test 12/31/11 0930 05/05/11 0807 CHOL 174 205* HDL 34* 35* LDL 100 118 TRIG 199* 261* CHOLHDLRATIO 5.1* 5.9* A1C 6.0 12/31/2011 A1C 5.9 05/05/2011 A1C 5.9 10/22/2010 A1C 5.8 05/30/2010 A1C 6.2 11/06/2009 Creatinine Date Value Range Status 12/31/2011 0.60 0.52 - 1.04 mg/dL Final ] ALT 27 12/31/2011 (needed for combination meds ie: Avandamet) Rakel Varghese RN -Encounter/OV: every 6 months -BP <130/80 every 6 months -Hgb A1c every 3 months if >7 -Hgb A1c every 6 months if <7 -Creatinine yearly ICAL STUDY MANAGER documented in this encounter Plan of Treatment Not on filedocumented as of this encounter Visit Diagnoses Diagnosis Type 2 diabetes, HbA1c goal < 7% (H) - P rimary Type II or unspecified type diabetes aubrey litus without mention of complication, not stated as uncontrolled documented in this encounter Care Teams Numerologist Relationship Specialty Start Date End Date Tiffany Leonard MD PCP - General 04/16/01 05/23/21 documented as of this encounter
--- OUTSIDE RECORDS SUMMARY | 2022-02-03 08:04 | XMS_ITS | Encounter Summary ---
:1945 Author Organization [place] Address [address] [place] [address]. [place] [address] Care Team Providers Name Role Phone Tiffany Leonard MD Primary Care Provider [phone] Reason for Visit Reason Onset Date Comments Refill Request 08/17/2011 Glucophage Medication Request 08/17/2011 [facility] Order Encounter Details Date Type Department Care Team Description 08/17/2011 MyC Refill [facility] Tiffany Leonard Refill Re [facility] Tammy Marinelli MD (Glucophage); [address] [address] [address] Medication Re... [facility] [place] [phone] Social History Tobacco Use Types Packs/Day Years [...] uncontrolled documented in this encounter Care Teams Campus Interviews Intern Relationship Specialty Start Date End Date Tiffany Leonard MD PCP - General 04/16/01 05/23/21 documented as of this encounter
--- OUTSIDE RECORDS SUMMARY | 2022-02-03 08:04 | XMS_ITS | Encounter Summary ---
:1945 Author Organization [facility] Address [address] [place] [address] Care Team Providers Name Role Phone Tiffany Leonard MD Primary Care Provider [phone] Encounter Details Date Type Department Care Team Description 04/12/[address] [facility] Typ e 2 diabetes, HbA1C goal < 7% (H); [facility] Type 2 diabetes mellitus wit h proteinuria or microalbuminuria; [address] Hyperlipidemia LDL goal <100 [place] [address] Social History Tobacco Use Types Packs/Day [...] diabetes, HbA1C Results for this QUANTITATIVE AM CHURCH ADMINISTRATOR goal < 7% (H) procedure are in Type 2 diabetes the results mellitus with section. proteinuria or microalbuminuria LIPID REFLEX TO Routine 04/12/2012 8:45 Type 2 diabetes, HbA1C Results for this DIRECT LDL PANEL AM CHURCH ADMINISTRATOR goal < 7% (H) procedure are in Type 2 diabetes the results mellitus with section. proteinuria or microalbuminuria Hyperlipidemia LDL goal <100 HEMOGLOBIN A1C Routine 04/12/2012 8:45 Type 2 diabetes, HbA1C Results for this AM CHURCH ADMINISTRATOR goal < 7% (H) procedure are in Type 2 diabetes the results mellitus with section. proteinuria or microalbuminuria COMPREHENSIVE Routine 04/12/2012 8:45 Type 2 diabetes, HbA1C R esults for this METABOLIC PANEL AM CHURCH ADMINISTRATOR goal < 7% (H) procedure are in Type 2 diabetes the results mellitus with section. proteinuria or microalbuminuria Hyperlipidemia LDL goal <100 documented in this encounter Results Microalbumin quantitative random urine (04/12/2012 8:46 AM CHURCH ADMINISTRATOR) P athologist Signature Creatinine 106 mg/dL [facility] Urine [facility] Albumin Urine 20 mg/L [facility] mg/L [facility] Albumin Urine 18.87 0 - 25 [facility] mg/g Cr mg/g Cr [facility] Specimen Anatomical Collection Method Collection Time Receive d Time (Source) Location / / Volume Laterality Urine specimen 04/12/2012 8:46 AM 013 8:47 (specimen) CHURCH ADMINISTRATOR AM CHURCH ADMINISTRATOR Tiffany Leonard MD LAB - URINE ORDERABLES Performing Organization Address City/State/ZIP Code Phon e Number [facility] [address] [place], [place] [id number] [place] [address] LABS (ABNORMAL) Comprehensive metabolic panel (04/12/2012 8:45 AM CHURCH ADMINISTRATOR) P athologist Signature Sodium 139 133 - [...] CLINIC LAB Albumin 4.1 3.3 - 4.9 [place] g/dL [facility] Comment: Reference range changed on 11/01. Protein Total 7.4 6.8 - 8.8 g/dL [facility] JORGE LUIS [facility] LAB Comment: As of 07, reference range reflects plasma specimen type. Alkaline Phosphatase 71 40 - 150 U/L [facility] EW [facility] ALT 18 0 - 50 U/L [facility] CLIN IC LAB AST 19 0 - 45 U/L [facility] CLIN IC LAB Specimen Anatomical Collection Method Collection Time Receive d Time (Source) Location / / Volume Laterality Blood specimen 04/12/2012 8:45 AM 013 8:46 (specimen) CHURCH ADMINISTRATOR AM CHURCH ADMINISTRATOR Tiffany Leonard MD LAB - BLOOD ORDERABLES Performing Organization Address City/State/ZIP Code Phon e Number [facility] [address] [place] [address] [facility] [address] [place] [address] (ABNORMAL) Lipid panel reflex to direct LDL (04/12/2012 8:45 AM CHURCH ADMINISTRATOR) athologist Signature Cholesterol 165 0 - 200 [facility] mg/dL CLINIC LAB Comment: LDL Cholesterol is the primary guide to therapy. The NCEP recommends further evaluation of: patients with cholesterol greater than 200 mg/dL if additional risk facto rs are present, cholesterol greater than 240 mg/dL, triglycerides greater than 1 50 mg/dL, or HDL less than 40 mg/dL. Triglycerides 253 (H) 0 - 150 mg/dL [facility] HDL Cholesterol 36 (L) 50 - 110 mg/dL [facility] LDL Cholesterol Calculated 79 0 - 129 mg/dL [facility] Comment: LDL Cholesterol is the primary guide to therapy: LDL-cholesterol goal in high risk patients is <100 mg/dL and in very high risk patients is <70 mg/dL. VLDL-Cholesterol 51 (H) 0 - 30 mg/dL [facility] Cholesterol/HDL Ratio 4.6 0.0 - 5.0 [facility] Specimen Anatomical Collection Method Collection Time Receive d Time (Source) Location / / Volume Laterality Blood specimen 04/12/2012 8:45 AM 02/11/2 013 8:46 (specimen) CHURCH ADMINISTRATOR AM CHURCH ADMINISTRATOR Tiffany Leonard MD LAB - BLOOD ORDERABLES Performing Organization Address City/State/ZIP Code Phon e Number [facility] [address] [facility] JANIA [place] [address] [place] [facility] [address] [place] [address] [phone] Hemoglobin A1c (04/12/2012 8:45 AM CHURCH ADMINISTRATOR) P athologist Signature Hemoglobin A1C 5.7 4.3 - 6.0 [place] % [facility] Specimen Anatomical Collection Method Collection Time Receive d Time (Source) Location / / Volume Laterality Blood specimen 04/12/2012 8:45 AM 013 8:46 (specimen) CHURCH ADMINISTRATOR AM CHURCH ADMINISTRATOR Tiffany Leonard MD LAB - BLOOD ORDERABLES Performing Organization Address City/[facility]/ZIP Code Phon e Number [facility] [address] [facility] [place] [address] [facility] [address] [facility] [place] [address] documented in this encounter Visit Diagnoses Diagnosis [...] hyperlipidemia documented in this encounter Care Teams Payroll Machine Operator Relationship Specialty Start Date End Date Tiffany Leonard MD PCP - General 04/16/01 05/23/21 documented as of this encounter
--- OUTSIDE RECORDS SUMMARY | 2022-02-03 08:04 | XMS_ITS | Encounter Summary ---
:1945 Author Organization [place] Address [address] [place] [address]. [place] [address] Care Team Providers Name Role Phone Tiffany Leonard MD Primary Care Provider [phone] Reason for Visit (Routine) - Closed Specialty Diagnoses / Procedures Referred By Contact Refer red To Contact Radiology Diagnoses SCREENING UNILATERAL - DIGITAL LEFT Procedure Notes: Routine [facility] Procedures RADIOLOGY [address], [address] [place], [place] [address] Phone: Fax: Referral ID Status Reason Start Date Expiration Date Visits Requ ested Visits Authorized [id number] Closed 12/12/2011 12/11/2012 1 1 Encounter Details Date Type Department Care Team Description 12/15/2011 Hospital Encounter [facility] Tiffany Leonard [facility] MD Isis [address], [address] [facility] [address] [place] [address] [place], [place] [phone] (Wo rk) [address] [phone] Social History Tobacco Use Types Packs/Day Years [...] 0 07/31 1200 MG OR HOURS NEEDED [id number]: Bronchitis acute MONIQUE NOT PRESCRIBED not prescribed [...] Procedure Name Priority Date/Time Associated Diagnosis Comme [facility] SCREENING Routine 12/15/2011 9:54 AM Results [...] on filedocumented in this encounter Care Teams Ada Accommodation Consultant Relationship Specialty Start Date End Date Tiffany Leonard MD PCP - General 04/16/01 05/23/21 documented as of this encounter
--- OUTSIDE RECORDS SUMMARY | 2022-02-03 08:04 | XMS_ITS | Encounter Summary ---
:1945 Author Organization [place] Address [address] [place] [address]. [place] [address] Care Team Providers Name Role Phone Tiffany Leonard MD Primary Care Provider [phone] Reason for Visit (Routine) - Closed Specialty Diagnoses / Procedures Referred By Contact Refer red To Contact Radiology Diagnoses MRA HEAD W/O CONTRAST* Procedure Notes: Cariovascular disease,syncope and collapse,Hx of ASCVDl Syncope on 02/28/2011; small vessel changes on CT. MRI done 8 years ago in [place]; p* Rh Mri Procedures RADIOLOGY [address] [place], [place] [address] Phone: Fax: Referral ID Status Reason Start Date Expiration Date Visits Requ ested Visits Authorized [id number] Closed 03/11/2011 03/10/2012 1 1 Encounter Details Date Type Department Care Team Description 03/12[facility]2011 [facility] MD Isis Syncope and collapse [address] [address] [place] [place] [id number] Social History Tobacco Use Types Packs/Day Years [...] 0 07/31 1200 MG OR HOURS NEEDED [id number]: Bronchitis acute ACCU-CHEK STEPHEN use as directed [...] Date/Time Associated Diagnosis Comme nts MRA BRAIN ([place] [facility] [facility] Routine 03/12/2011 9:17 AM ASCVD (arterioscl erotic Results for this OF SON) W/O CONTRACT MAIL CARRIER cardiovascular d isease) procedure are in CONTRAST Syncope and collapse the res ults section. documented in this encounter Results MRI Angiogram head w/o contrast* (03/12/2011 9:17 AM CONTRACT MAIL CARRIER) Anatomical Region Laterality Modality Head, SUBRAD MR NEURO, UMP MR NEURO Magn etic Resonance Specimen (Source) Anatomical Collection Method Collection Time Re ceived Time Location / / Volume Laterality 03/12/2011 9:17 AM CONTRACT MAIL CARRIER Impressions 03/12/2011 11:09 AM CONTRACT MAIL CARRIER MR ANGIOGRAM OF THE HEAD WITHOUT CONTRAS T ?? Mar 12, 2011 9:17:00 AM HISTORY: Syncope and collapse. TECHNIQUE: ??3D [id number] MR angiog cyndie of the head without contrast. COMPARISON: None. FINDINGS: ??The visualized portions of t he distal internal carotid and vertebral arteries, the basilar artery, nez perce of Son, and the proximal anterior, middle [...] collapse documented in this encounter Care Teams Infrastructure Engineer Relationship Specialty Start Date End Date Tiffany Leonard MD PCP - General 04/16/01 05/23/21 documented as of this encounter
--- OUTSIDE RECORDS SUMMARY | 2022-02-03 08:04 | XMS_ITS | Encounter Summary ---
:1945 Author Organization [facility] Address [address] [place] [address]. [place] [address] Care Team Providers Name Role Phone Tiffany Leonard MD Primary Care Provider [phone] Reason for Visit Reason Onset Date Comments Refill Request 03/24/2012 pravachol Encounter Details Date Type Department Care Team Description 03/24/2012 MyC Refill [facility] Tiffany Leonard [facility] Tammy Marinelli MD (pravachol) [address] [address] [facility] [place], [place] [address] [phone] Social History Tobacco Use Types Packs/Day Years Used Date Smoking Tobacco: Former Cigarettes Quit : 05/14/1988 Smokeless Tobacco: Never Alcohol Use Standard Drinks/Week Comments No 0 (1 standard drink = 0.6 oz pure alcoho l) Sex Assigned at Date Recorded Female 05/22/2021 3:03 PM CDT documented as of this encounter Miscellaneous Notes Telephone Encounter - Rakel Varghese - 03/24/2012 9:53 AM PRICING ACTUARY Message from Luis Alberto: Original authorizing provider: Tiffany Leonard MD, MD Nunez Melina Quinn would like a refill of the following medications: pravastatin (PRAVACHOL) 40 MG tablet [Tiffany Leonard MD, ] Preferred pharmacy: [facility] in [place] Comment: I received a letter from [facility] (03/17/12) telling me they are unable to fill my prescription for PRAVASTATIN 40 MG because they are experiencing problelms obtaining the medication neeeded to fill this Rx.Could I get another prescription called into [facility] pharmacy in [place]? ING ACTUARY documented in this encounter Plan of Treatment Not on filedocumented as of this encounter Visit Diagnoses Diagnosis Hyperlipidemia LDL goal <100 - Primary Other and unspecified hyperlipidemia documented in this encounter Care Teams Backup Operator Relationship Specialty Start Date End Date Tiffany Leonard MD PCP - General 04/16/01 05/23/21 documented as of this encounter
--- OUTSIDE RECORDS SUMMARY | 2022-02-03 08:04 | XMS_ITS | Encounter Summary ---
:1945 Author Organization [facility] Address [address] [place] [address]. [place] [address] Care Team Providers Name Role Phone Tiffany Leonard MD Primary Care Provider [phone] Reason for Visit Reason Onset Date Comments Chronic Care Conference Provider Overview 07/22/2011 Encounter Details Date Type Department Care Team Description 07/22/2011 Telephone [facility] Tiffany Leonard [facility] C are Clinic Tammy Marinelli MD Conference Provider [address] [address] SHAY[address] Overview JANIA Munoz [place] [id number] [phone] Social History Tobacco Use Types Packs/Day Years [...] on filedocumented in this encounter Care Teams Industrial Hire Sales Assistant Relationship Specialty Start Date End Date Tiffany Leonard MD PCP - General 04/16/01 05/23/21 documented as of this encounter
--- OUTSIDE RECORDS SUMMARY | 2022-02-03 08:04 | XMS_ITS | Encounter Summary ---
:1945 Author Organization [facility] Address [address] [place] [address]. [place] [address] Care Team Providers Name Role Phone Tiffany Leonard MD Primary Care Provider [phone] Reason for Visit Reason Onset Date Comments Refill Request 02/02/2013 Losartan Encounter Details Date Type Department Care Team Description 02/02/2013 Refill [facility] Tiffany Leonard R efill Request Clinic Tammy BARRIENTOS (Losartan ) [address] [address] [address] [place] [id number] [phone] Social History Tobacco Use Types Packs/Day Years [...] of this multiple times. Rakel Varghese RN AND MISCELLANEOUS REMITTANCE CLERK Telephone Encounter - Tash Smith - 02/02/2013 [...] - 1.04 mg/dL Final Tash Smith RN. AND MISCELLANEOUS REMITTANCE CLERK documented in this encounter Plan of Treatment Not on filedocumented as of this encounter Visit Diagnoses Diagnosis Type 2 diabetes mellitus with proteinuri a or microalbuminuria - Primary Type II or unspecified type diabetes aubrey litus with renal manifestations, not stated as uncontrolled Unspecified cardiovascular disease documented in this encounter Care Teams Meat Butcher Relationship Specialty Start Date End Date Tiffany Leonard MD PCP - General 04/16/01 05/23/21 documented as of this encounter
--- OUTSIDE RECORDS SUMMARY | 2022-02-03 08:05 | XMS_ITS | Encounter Summary ---
:1945 Author Organization [facility] Address [address] [place] [address]. [place] [address] Care Team Providers Name Role Phone Tiffany Leonard MD Primary Care Provider [phone] Reason for Visit Reason Onset Date Comments Refill Request 08/15/2009 test strip clarifica tion Encounter Details Date Type Department Care Team Description 08/15/2009 Refill [facility] Tiffany Leonard R efmariela Request (test Clinic Darrian BARRIENTOS strip clarification) [address] [place] [address] [facility] [address] [place] [address] [place], [place] [phone] (Wo rk) [address] [phone] Social History Tobacco Use Types Packs/Day Years [...] uncontrolled documented in this encounter Care Teams Buff Wheel Fabricator Relationship Specialty Start Date End Date Tiffany Leonard MD PCP - General 04/16/01 05/23/21 documented as of this encounter
--- OUTSIDE RECORDS SUMMARY | 2022-02-03 08:05 | XMS_ITS | Encounter Summary ---
:1945 Author Organization [facility] Address [address] [place] [address]. [place] [address] Care Team Providers Name Role Phone Tiffany Leonard MD Primary Care Provider [phone] Reason for Visit Reason Onset Date Comments Prior Authorization 08/24/2009 prevacid Encounter Details Date Type Department Care Team Description 08/24/2009 Telephone [facility] Tiffany Leonard Prior [facility] Tammy Marinelli MD (prevacid) [address] [address] [place] [address] [phone] Social History Tobacco Use Types Packs/Day Years [...] [facility] [place] [facility] to bleeding ulcers. Pt states she [...] to pursue prior auth through GI at [place]. Rakel Varghese RN Telephone Encounter - Tiffany Leonard - 08/29/2009 3:35 PM CDT Please check to see what else pt has been on . Pt was given current Rx from GI at [place]; they may be able to get PA [...] # Form in prior auth folder at [facility] b Will await approval or denial. Rakel Varghese RN documented in this encounter Plan of Treatment Not on filedocumented as of this encounter Visit Diagnoses Not on filedocumented in this encounter Care Teams Manager Water Wastewater Relationship Specialty Start Date End Date Tiffany Leonard MD PCP - General 04/16/0105/23/22 documented as of this encounter
--- OUTSIDE RECORDS SUMMARY | 2022-02-03 08:05 | XMS_ITS | Encounter Summary ---
:1945 Author Organization [place] Address [address] [place] [address]. [place] [address] Care Team Providers Name Role Phone Tiffany Leonard MD Primary Care Provider [phone] Reason for Visit Reason Onset Date Comments Refill Request 08/08/2010 neurontin Encounter Details Date Type Department Care Team Description 08/08/2010 MyC Refill [facility] Tiffany Leonard Refill Re [facility] Tammy Marinelli MD (neurontin) [address] [address] [place] [address] [phone] Social History Tobacco Use Types Packs/Day Years [...] - 08/08/2010 12:12 PM CDT Message from [employer]: Mayra J Kai would like a refill of the following medications: gabapentin (NEURONTIN) 600 MG tablet [Tiffany Leonard MD] Preferred pharmacy: [facility] in [place], [place] Comment: I received a letter from [facility] they are unable to fill this prescription at this time dueto the anthropological linguist having difficulty receiving this drug. It is a new prescription that hasn't beenfilled yet. Could you call/fax a prescription to [facility] in [place] @ [phone]. documented in this encounter Plan of Treatment Not on filedocumented as of this encounter Visit Diagnoses Diagnosis Type 2 diabetes, HbA1c goal < 7% (H) - P rimary Type II or unspecified type diabetes aubrey litus without mention of complication, not stated as uncontrolled documented in this encounter Care Teams Splitting Machine Operator Helper Relationship Specialty Start Date End Date Tiffany Leonard MD PCP - General 04/16/01 documented as of this encounter
--- OUTSIDE RECORDS SUMMARY | 2022-02-03 08:05 | XMS_ITS | Encounter Summary ---
:1945 Author Organization [facility] Address [address] [place] [address] Care Team Providers Name Role Phone Tiffany Leonard MD Primary Care Provider [phone] Reason for Visit Reason Comments Pre Visit Planning - Done Diabetes Edema swelling in right ankle for the past month Encounter Details Date Type Department Care Team Description 12/31/2009 Office Visit [facility] Tiffany Leonard Type 2 di abetes, HbA1C goal < 7% (H); Clinic Tammy Marinelli MD Hyperlipidemia LDL goal <100; [address] [address] [address] Gastritis; [place], [place] Vitamin D deficiencies; [place] [address] ASCVD; [phone] PERS HX OF BREAST MALIGNANCY [...] AREA ONCE DAILY BEFORE BEDTIME ??? CHOLECALCIFEROL 21131 UNIT OR CAPS 2 CAPSULE DAILY ??? MUCINEX MAXIMUM STRENGTH 1200 MG OR TB12 1 TABLET EVERY 12 HOURS NEEDED ??? ASPIRIN 81 MG OR TABS 1 TABLET DAILY ??? PREVACID 30 MG OR CPDR ONE DAILY- PAUL per Gastroenterology at [place] Histories reviewed and updated [facility] [...] OF BREAST MALIGNANCY Comment: last mammo through [facility]- will request. released from [facility] Plan: continue to monitor through PCP Tiffany Leonard MD Internal Medicine electronically signed 25 minutes is spent with patient, over 50% of that time spent providing counselling, discussing and reviewing meds and potential side effects. R VEHICLE OR CARAVAN SALESPERSON documented in this encounter Nursing Notes 12/31/2009 10:00 AM CDT >> CATIAN ROBERSON Mon Dec 31, 2009 10:01 AM Patient presents with: Pre Visit Planning - Done Diabetes Edema - swelling in right ankle for the past month Pt thinks that she had her mammo in [place] in June of this year. Initial Ht [...] breast documented in this encounter Care Teams Blacksmith Assistant Relationship Specialty Start Date End Date Tiffany Leonard MD PCP - General 04/16/01 05/23/21 documented as of this encounter
--- OUTSIDE RECORDS SUMMARY | 2022-02-03 08:05 | XMS_ITS | Encounter Summary ---
:1945 Author Organization [facility] Address [address] [place] [address]. [place] [address] Care Team Providers Name Role Phone Tiffany Leonard MD Primary Care Provider [phone] Reason for Visit Reason Onset Date Comments Chronic Care Conference Provider Overview 05/28/2010 Encounter Details Date Type Department Care Team Description 05/28/2010 Telephone [facility] Tiffany Leonard Chronic C are Clinic Tammy Marinelli MD Conference Provider [address] [address] [address] Overview [place] [phone] Social History Tobacco Use Types Packs/Day Years Used Date Smoking Tobacco: Former Cigarettes Quit : 05/14/1988 Alcohol Use Standard Drinks/Week Comments No 0 (1 standard drink = 0.6 oz pure alcoho l) Sex Assigned at Date Recorded Female 05/22/2021 3:03 PM CDT documented as of this encounter Miscellaneous Notes Telephone Encounter - Lissa Lara - 05/28/2010 1:26 PM CDT Pt has appt scheduled for a f/u with PCP. documented in this encounter Plan of Treatment Not on filedocumented as of this encounter Visit Diagnoses Not on filedocumented in this encounter Care Teams Check Examiner Relationship Specialty Start Date End Date Tiffany Leonard MD PCP - General 04/16/01 documented as of this encounter
--- OUTSIDE RECORDS SUMMARY | 2022-02-03 08:05 | XMS_ITS | Encounter Summary ---
:1945 Author Organization [place] Address [address] [place] [address]. [place] [address] Care Team Providers Name Role Phone Tiffany Leonard MD Primary Care Provider [phone] Reason for Visit Reason Onset Date Comments Refill Request 08/26/2010 Neurontin Encounter Details Date Type Department Care Team Description 08/26/2010 MyC Refill [facility] Tiffany Leonard Refill Re [facility] Tammy Marinelli MD (Neurontin) [address] [address] [place] [phone] [phone] Social History Tobacco Use Types Packs/Day Years Used Date Smoking Tobacco: Former Cigarettes Quit : 05/14/1988 Alcohol Use Standard Drinks/Week Comments No 0 (1 standard drink = 0.6 oz pure alcoho l) Sex Assigned at Date Recorded Female 05/22/2021 3:03 PM CDT documented as of this encounter Miscellaneous Notes Telephone Encounter - Shirin Kinney - 08/27/2010 10:45 AM CDT [facility] ref[phone]. Per pharmacist, pt picked up #90 on 08/08/10. Will refill/transfer RX for remaining 2 months. Mirian Kinney RN. Telephone Encounter - Shirin Kinney - 08/27/2010 10:38 AM CDT Message from [employer]: Original authorizing provider: Tiffany Quinn would like a refill of the following medications: gabapentin (NEURONTIN) 600 MG tablet [Tiffany Leonard MD] Preferred pharmacy: - [facility] Comment: [facility] now has this medication available. I ordered a Rx from [facility] for one month only. If you could re-send this Rx to [facility] () now they will be filling this medication for the remainder 11 months. Thank you. Denzel for the inconvenience.............. documented in this encounter Plan of Treatment Not on filedocumented as of this encounter Visit Diagnoses Diagnosis Type 2 diabetes, HbA1c goal < 7% (H) - P rimary Type II or unspecified type diabetes aubrey litus without mention of complication, not stated as uncontrolled documented in this encounter Care Teams Stator Connector Relationship Specialty Start Date End Date Tiffany Leonard MD PCP - General 04/16/01 05/23/21 documented as of this encounter
--- OUTSIDE RECORDS SUMMARY | 2022-02-03 08:05 | XMS_ITS | Encounter Summary ---
:1945 Author Organization [facility] Address [address] [place] [address]. [place] [address] Care Team Providers Name Role Phone Tiffany Leonard MD Primary Care Provider [phone] Reason for Visit (Routine) - Closed Specialty Diagnoses / Procedures Referred By Contact Refer red To Contact Radiology Diagnoses MRI BRAIN W/O CONTRAST Procedure Notes: Cariovascular disease,syncope and collapse,Hx of ASCVDl Syncope on 02/28/2011; small vessel changes on CT. MRI done 8 years ago in [place]; p* Rh Mri Procedures RADIOLOGY [address] [place], [place] [address] Phone: Fax: Referral ID Status Reason Start Date Expiration Date Visits Requ ested Visits Authorized [id number] Closed 03/11/2011 03/10/2012 1 1 Encounter Details Date Type Department Care Team Description 03/12/2011 Hospital Encounter [facility] Tiffany Leonard ASC VD [facility] Imaging MD Isis (arteriosclerotic [address] disease) [place] [phone] Social History Tobacco Use Types Packs/Day [...] 0 07/31 1200 MG OR HOURS NEEDED [id number]: Bronchitis acute ACCU-CHEK STEPHEN use as directed [...] ASCVD (arterioscleroti c Results for this CONTRAST MANAGER FILE cardiovascular disease) proc edure are in the results section. documented in this encounter Results MRI Brain w/o contrast (03/12/2011 9:29 AM MANAGER FILE) Anatomical Region Laterality Modality Head, SUBRAD MR NEURO, UMP MR NEURO Magn etic Resonance Specimen (Source) Anatomical Collection Method Collection Time Re ceived Time Location / / Volume Laterality 03/12/2011 9:29 AM MANAGER FILE Impressions 03/21/2011 10:21 AM MANAGER FILE Addendum Begins Mayra Quinn The original report on this patient was dictated by Dr. Chandler. When compared to the newly available old brai n MRI from [facility] from 02/20/2003, there has been no identifiab [...] disease documented in this encounter Care Teams Solar Manufacturer'S Representative Relationship Specialty Start Date End Date Tiffany Leonard MD PCP - General 04/16/01 05/23/21 documented as of this encounter
--- OUTSIDE RECORDS SUMMARY | 2022-02-03 08:05 | XMS_ITS | Encounter Summary ---
:1945 Author Organization [facility] Address [address] [place], [place] [address]. [place] [address] Care Team Providers Name Role Phone Tiffany Leonard MD Primary Care Provider [phone] Reason for Visit Reason Onset Date Comments Refill Request 06/11/2009 needs temp refill wh ile awaiting mail order supply Encounter Details Date Type Department Care Team Description 06/11/2009 Refill [facility] Tiffany Leonard R efill Request (needs Clinic Tammy BARRIENTOS temp refill while [address] [address] [address] awaiting mail order [place] Munoz [place] [address] supply) [address] [phone] Social History Tobacco Use Types Packs/Day Years [...] mcleod documented in this encounter Care Teams Laboratory Scientist Relationship Specialty Start Date End Date Tiffany Leonard MD PCP - General 04/16/01 05/23/21 documented as of this encounter
--- OUTSIDE RECORDS SUMMARY | 2022-02-03 08:05 | XMS_ITS | Encounter Summary ---
:1945 Author Organization [place] Address [address] [place] [address] Care Team Providers Name Role Phone Tiffany Leonard MD Primary Care Provider [phone] Encounter Details Date Type Department Care Team Description 11/06/2009 Orders Only [facility] Type 2 Valeria betes, HbA1c Goal < 7% (H); Clinic [place] Hyperlipide bren LDL Goal <100; Laboratory Microalbuminuria [address] [place] [address] Social History Tobacco Use Types Packs/Day [...] LDL the resul ts Goal <100 section. [facility] COMPREHENSIVE Routine 11/06/2009 8:28 AM Type 2 Diabetes, Results for this METABOLIC PANEL CDT HbA1c Goal < 7% (H) procedure are in Hyperlipidemia LDL the resul ts Goal <100 section. [facility] GLYCATED Routine 11/06/2009 8:28 AM Type 2 Diabetes, Resul ts for this HEMOGLOBIN CDT HbA1c Goal < 7% (H) procedur e are in the results section. [facility] ALBUMIN URINE (INC Routine 11/06/2009 8:28 AM Type 2 Diabe farhat, Results for this CREAT) CDT HbA1c Goal < 7% (H) procedure are in Microalbuminuria the results section. documented in this encounter Results (ABNORMAL) HEMOGLOBIN A1C (11/06/2009 8:28 AM CDT) athologist Signature Hemoglobin A1C 6.2 (H) 4.3 - 6.0 [place] [facility] Specimen Anatomical Collection Method Collection Time Receive d Time (Source) Location / / Volume Laterality 11/06/2009 8:28 AM 201 0 8:29 CDT AM CDT Tiffany Leonard MD LABORATORY Performing Organization Address City/State/ZIP Code Phon e Number [facility] [address] [address] [facility] A.M.A. COMPREHENSIVE MET.PANEL (11/06/2009 8:28 AM CDT) athologist Signature Sodium 142 133 - 144 [place] mmol/L [facility]INIC [facility] Potassium 4.0 3.4 - 5.3 [place] mmol/L CL[facility] Chloride 102 94 - 109 [place] mmol/L [facility] Carbon Dioxide 30 20 - 32 [place] mmol/L CL[facility]IC [facility] Anion Gap 9 6 - 17 [place] mmol/L [facility] LAB Glucose 94 60 - 99 [place] mg/dL CLINIC LAB Urea Nitrogen 14 7 - 30 [place] mg/dL CLINIC LAB Creatinine 0.70 0.52 - [place] 1.04 mg/dL CLINIC LAB Comment: New IDMS-traceable calibration beginning 07/01/07 GFR Estimate 84 >60 mL/min/1.7m2 [place] [facility] GFR Estimate If Black >90 >60 mL/min/1.7m2 [facility] Calcium 9.2 8.5 - 10.4 mg/dL [place] [facility] Bilirubin Total 0.6 0.2 - 1.3 mg/dL [facility] Albumin 3.9 3.3 - 4.9 g/dL [place] Comment: Reference range changed on 11/01. Protein Total 7.2 6.8 - 8.8 g/dL [facility] Comment: As of 07, reference range reflects plasma specimen type. Alkaline Phosphatase 63 40 - 150 U/L [facility] LAB ALT 18 0 - 50 U/L [facility] CLIN IC LAB AST 26 0 - 45 U/L [facility] IC LAB Specimen Anatomical Collection Method Collection Time Receive d Time (Source) Location / / Volume Laterality 11/06/2009 8:28 AM 0 8:29 CDT AM CDT Tiffany Leonard MD LABORATORY Performing Organization Address City/[facility]/ZIP Code Phon e Number [facility] [address] [place] [address] [facility] MICROALBUMIN (INC URINE CREAT) (11/06/2009 8:28 AM CDT) athologist Signature Creatinine 41 mg/dL [facility] Urine CAMPUS LABS Albumin Urine 8 mg/L [facility] mg/L [place] [facility] Albumin Urine 19.51 0 - 20 [facility] mg/g Cr mg/g Cr CAMPUS LABS Specimen Anatomical Collection Method Collection Time Receive d Time (Source) Location / / Volume Laterality 11/06/2009 8:28 AM 0 8:29 CDT AM CDT Tiffany Leonard MD LABORATORY Performing Organization Address City/State/ZIP Code Phon e Number [address] [address] [facility]S (ABNORMAL) LIPID PANEL, REFLEX TO DIRECT LDL (11/06/2009 8:28 AM CDT) P athologist Signature Cholesterol 164 0 - 200 [facility] mg/dL CLINIC LAB Comment: LDL Cholesterol is the primary guide to therapy. The NCEP recommends further evaluation of: patients with cholesterol <200 mg/dL if additional risk factors are present, cholesterol >240 mg/dL, triglycerides >150 mg/dL, or HDL <40 mg/dL. Triglycerides 273 (H) 0 - 150 mg/dL [facility] HDL Cholesterol 28 (L) 50 - 110 mg/dL [facility] LDL Cholesterol Calculated 81 0 - 129 mg/dL [facility] Comment: LDL Cholesterol is the primary guide to therapy: LDL-cholesterol goal in high risk patients is <100 mg/dL and in very high risk patients is <70 mg/dL. VLDL-Cholesterol 55 (H) 0 - 30 mg/dL [place] [facility] Cholesterol/HDL Ratio 5.8 (H) 0.0 - 5.0 [facility] Specimen Anatomical Collection Method Collection Time Receive d Time (Source) Location / / Volume Laterality 11/06/2009 8:28 AM 0 8:29 CDT AM CDT Tiffany Leonard MD LABORATORY Performing Organization Address City/State/ZIP Code Phon e Number [address] [address] [facility] documented in this encounter Visit Diagnoses Diagnosis Type 2 diabetes, HbA1c goal < 7% (H) Type II or unspecified type diabetes aubrey litus without mention of complication, not stated as uncontrolled Hyperlipidemia LDL goal <100 Other and unspecified hyperlipidemia Microalbuminuria Proteinuria documented in this encounter Care Teams Supervisor Cabinetmaker Relationship Specialty Start Date End Date Tiffany Leonard MD PCP - General 04/16/01 documented as of this encounter
--- OUTSIDE RECORDS SUMMARY | 2022-02-03 08:05 | XMS_ITS | Encounter Summary ---
:1945 Author Organization [facility] Address [address] [place] [address] Care Team Providers Name Role Phone Tiffany Leonard MD Primary Care Provider [phone] Reason for Visit Reason Comments ER F/U follow up to ER visit post f all in her bathroom. States is doing well and vision has improved. Encounter Details Date Type Department Care Team Description 03/11/2011 Office Visit [facility] Tiffany Leonard ASCVD (ar teriosclerotic cardiovascular disease); Clinic Tammy Marinelli MD Syncope and collapse [address] [address] [facility] [place] [facility] [place] [phone] Social History Tobacco Use Types Packs/Day [...] Comments Blood Pressure 120/66 03/11/2011 3:12 PM ANCILLARY SERVICES MANAGER Pulse 66 03/11/2011 3:12 PM ANCILLARY SERVICES MANAGER Temperature - - Respiratory Rate 15 03/11/2011 3:12 PM ANCILLARY SERVICES MANAGER Oxygen Saturation - - Inhaled Oxygen Concentration - - Weight 71.7 kg (158 lb) 03/11/2011 3:12 PM ANCILLARY SERVICES MANAGER Height 163.8 cm (5' 4.5) 03/11/2011 3:12 PM ANCILLARY SERVICES MANAGER Body Mass Index 26.7 03/11/2011 3:12 PM ANCILLARY SERVICES MANAGER documented in this encounter Progress Notes Tiffany [...] Since that time has significantly improved. Chitra Osorio LPN ROS: CONSTITUTIONAL:NEGATIVE for fever, chills, change [...] CT. MRI done 8 years ago in [place]; pt will get copy for comparison Lipids goal should be LDL<100 [place] 10-year CHD Risk Score: 20% (Diabetic) Values [...] CHD. -- Points:0 Pt with hx of DE at age 42, Diabetes; BP well controlled. Plan: MRI Brain w/o contrast, MRI Angiogram head w/o contrast* 780.2 Syncope and collapse Comment: fall in bathroom 02/28/2011; Plan: MRI Angiogram head w/o contrast* Tiffany Leonard MD Internal Medicine electronically signed 25 minutes is spent with patient, over 50% of that time spent providing counselling, discussing and reviewing meds and potential side effects. LLARY SERVICES MANAGER documented in this encounter Nursing Notes 03/11/2011 [...] BP completed using cuff size. large. Chitra sOorio LPN documented in this encounter Plan of Treatment Not on filedocumented as of this encounter Visit Diagnoses Diagnosis ASCVD (arteriosclerotic cardiovascular d isease) Unspecified cardiovascular disease Syncope and collapse documented in this encounter Care Teams Air Quality Engineer Relationship Specialty Start Date End Date Tiffany Leonard MD PCP - General 04/16/01 05/23/21 documented as of this encounter
--- OUTSIDE RECORDS SUMMARY | 2022-02-03 08:05 | XMS_ITS | Encounter Summary ---
:1945 Author Organization [facility] Address [address] [place] [address]. [place] [address] Care Team Providers Name Role Phone Tiffany Leonard MD Primary Care Provider [phone] Reason for Visit Reason Onset Date Comments Refill Request 03/04/2011 Prevacid Encounter Details Date Type Department Care Team Description 03/04/2011 MyC Refill [facility] Tiffany Leonard Refill [facility] Tammy Marinelli MD (Prevacid) [address] [address] [address] [place] [address] [phone] Social History Tobacco Use Types Packs/Day Years [...] examHoracio Last filled:05/30/10 #180 RF-3 Mirian Chan BODY DETAILER Telephone Encounter - Shirin Kinney - 03/04/2011 4:45 PM AUTO BODY DETAILER Message from MyChart: Original authorizing provider: Tiffany Leonard MD, MD Mayra Quinn would like a refill of the following medications: LANsoprazole (PREVACID) 15 MG capsule [Tiffany Leonard MD, ] Preferred pharmacy: - MAIL ORDER Comment: Could a Rx for the above Lansoprazole be faxed to [facility]...thank you. BODY DETAILER documented in this encounter Plan of Treatment Not on filedocumented as of this encounter Visit Diagnoses Diagnosis Gastritis - Primary Unspecified gastritis and gastroduodenit is without mention of hemorrhage documented in this encounter Care Teams Wrapper Opener Relationship Specialty Start Date End Date Tiffany Leonard MD PCP - General 04/16/01 05/23/21 documented as of this encounter
--- OUTSIDE RECORDS SUMMARY | 2022-02-03 08:05 | XMS_ITS | Encounter Summary ---
:1945 Author Organization [facility] Address [address] [place] [address] Care Team Providers Name Role Phone Tiffany Leonard MD Primary Care Provider [phone] Reason for Visit Reason Onset Date Comments Diabetes Education 10/30/2009 Encounter Details Date Type Department Care Team Description 10/30/2009 Telephone [facility] Shauna Lopes Diabetes Education [place] [address] (Wo rk) Social History Tobacco Use Types Packs/Day Years Used Date Smoking Tobacco: Former Cigarettes Quit : 05/14/1988 Alcohol Use Standard Drinks/Week Comments No 0 (1 standard drink = 0.6 oz pure alcoho l) Sex Assigned at Date Recorded Female 05/22/2021 3:03 PM CDT documented as of this encounter Miscellaneous Notes Telephone Encounter - Sahuna Lopes - 10/30/2009 4:19 PM CDT Dear [...] on filedocumented in this encounter Care Teams Mason Tender Restoration Labor Relationship Specialty Start Date End Date Tiffany Leonard MD PCP - General 04/16/01 05/23/21 documented as of this encounter
--- OUTSIDE RECORDS SUMMARY | 2022-02-03 08:05 | XMS_ITS | Encounter Summary ---
:1945 Author Organization [facility] Address [address] [place] [address] Care Team Providers Name Role Phone Tiffany Leonard MD Primary Care Provider [phone] Reason for Visit Reason Comments Diabetes Encounter Details Date Type Department Care Team Description 08/29/2009 Office Visit [facility] Silke Muro DM w/o C omplication CLINIC D, RD Type II (Primary Dx) [facility] [address] [place], [place] [id number] Social History Tobacco Use Types Packs/Day Years [...] Primary documented in this encounter Care Teams Harvest Manager Relationship Specialty Start Date End Date Tiffany Leonard MD PCP - General 04/16/01 05/23/21 documented as of this encounter
--- OUTSIDE RECORDS SUMMARY | 2022-02-03 08:05 | XMS_ITS | Encounter Summary ---
:1945 Author Organization [facility] Address [address] [place] [address]. [place] [address] Care Team Providers Name Role Phone Tiffany Leonard MD Primary Care Provider [phone] Reason for Referral Referral not Required - Closed Specialty Diagnoses / Procedures Referred By Contact Refer red To Contact Diagnoses Internal hemorrhoids Colon polyp, hyperplastic Tiffany Leonard MD COLON & RECTAL SURGERY [address] [facility] [address] [address] [place] [address] Phone: Fax: Referral ID Status Reason Start Date Expiration Date Visits Requ ested Visits Authorized [id number] Closed 10/22/2010 04/20/2011 1 1 Reason for Visit Reason Comments Physical Pre Visit Planning - 2 Attempts call placed 10/16/10 Medicare Visit Mammo's have been done at [facility] in the past but [facility]. Encounter Details Date Type Department Care Team Description 10/22/2010 [facility] at a health care facility; Clinic Tammy Marinelli MD Type 2 diabetes, HbA1C goal < 7% (H); [address] [address] [address] Hyperlipidemia LDL goal <100; [address] [place], [place] IDIO PERIPH NEURPTHY NOS; [place] [address] Unspecified cardiovascular disease; [id number] Colon polyp, hyperplastic; Internal hemorrhoids; Unspecifi ed [...] Physical Exam Mammo's have been done at [facility] in the past but will be going to [facility]. CC: Mayra Quinn is an 65 [...] hysterectomy. All Histories reviewed and updated in [facility]. Chitar Osorio LPN ROS: C: NEGATIVE for fever, [...] appropriate; colon polyps noted on colonoscopy at [facility], follow up in next few years; last [...] file 2002 but has had done at [facility] in past fesw years; anticipate follow up [...] Exam - Mammo's have been done at [facility] in the past but will be going to [facility]. Initial BP 118/72 Pulse 62 Resp [...] Signature Hemoglobin A1C 5.9 4.3 - 6.0 [place] % [facility] Specimen Anatomical Collection Method Collection Time Receive d Time (Source) Location / / Volume Laterality Blood specimen 10/22/2010 10:57 1 (specimen) AM CDT 10:58 AM CDT Tiffany Leonard MD LAB - BLOOD ORDERABLES Performing Organization Address City/State/ZIP Code Phon e Number [facility] [address] [address] [facility] LAB (ABNORMAL) Comprehensive metabolic panel (10/22/2010 10:57 AM CDT) P athologist Signature Sodium 145 (H) 133 - 144 [place] mmol/L [facility] Potassium 4.7 3.4 - 5.3 [place] mmol/L [facility] Chloride 104 94 - 109 [place] mmol/L [facility] Carbon Dioxide 30 20 - 32 [place] mmol/L [facility] Anion Gap 11 6 - 17 [place] mmol/L [facility] Glucose 94 60 - 99 [place] mg/dL [facility] Urea Nitrogen 14 7 - 30 [place] mg/dL [facility] Creatinine 0.69 0.52 - [place] 1.04 mg/dL [facility] GFR Estimate 85 >60 [place] mL/min/1.7 [facility] m2 LAB GFR Estimate If >90 >60 [place] Black mL/min/1.7 [facility] m2 LAB Calcium 9.7 8.5 - 10.4 [place] mg/dL [facility] Bilirubin Total 0.5 0.2 - 1.3 [place] mg/dL [facility] Albumin 4.3 3.3 - 4.9 [place] g/dL [facility] Comment: Reference range changed on 11/01. Protein Total 7.4 6.8 - 8.8 g/dL [facility] Comment: As of 07, reference range reflects plasma specimen type. Alkaline Phosphatase 60 40 - 150 U/L [facility] EW INOCENCIA CLINIC LAB ALT 13 0 - 50 U/L [place] [facility] CLIN IC LAB AST 21 0 - 45 U/L [place] [facility] IC LAB Specimen Anatomical Collection Method Collection Time Receive d Time (Source) Location / / Volume Laterality Blood specimen 10/22/2010 10:57 1 (specimen) AM CDT 10:58 AM CDT Tiffany Leonard MD LAB - BLOOD ORDERABLES Performing Organization Address City/[facility]/ZIP Code Phon e Number [facility] [address] [place] [address] [facility] Hemoglobin (10/22/2010 10:57 AM CDT) P athologist Signature Hemoglobin 13.6 11.7 - 15.7 [place] g/dL [facility] Specimen Anatomical Collection Method Collection Time Receive d Time (Source) Location / / Volume Laterality Blood specimen 10/22/2010 10:57 1 (specimen) AM CDT 10:58 AM CDT Tiffany Leonard MD LAB - BLOOD ORDERABLES Performing Organization Address City/[facility]/ZIP Code Phon e Number [facility] [address] [place], [place] [address] [facility] LAB TSH with free T4 reflex (10/22/2010 10:57 AM CDT) P athologist Signature TSH 1.03 0.4 - 5.0 [facility] mU/L CLINIC LAB Specimen Anatomical Collection Method Collection Time Receive d Time (Source) Location / / Volume Laterality Blood specimen 10/22/2010 10:57 1 (specimen) AM CDT 10:58 AM CDT Tiffany Leonard MD LAB - BLOOD ORDERABLES Performing Organization Address City/[facility]/ZIP Code Phon e Number [facility] [address] [place] [address] [facility] Vitamin D Deficiency (10/22/2010 10:57 AM CDT) Component Value Ref Test Analysis Performed At Patholo gist Range Method Time Signature 25 [place] Vit D2 <5 ug/L [facility]S 25 [place] Vit D3 42 ug/L [facility]S 25 [place] Vit D <47 30 - 75 [facility] total Season, race, dietary intake, and treatm ent affect the concentration of ug/L [place] 54-lrrjfrl-Qnaxypl D. Values may decrease during ye er [...] Phon e Number [facility] [address] [place] [address] [facility] LABS (ABNORMAL) Lipid panel reflex to direct LDL (10/22/2010 10:57 AM CDT) P athologist Signature Cholesterol 191 0 - 200 [facility] mg/dL CLINIC LAB Comment: LDL Cholesterol is the primary guide to therapy. The NCEP recommends further evaluation of: patients with cholesterol greater than 200 mg/dL if additional risk facto rs are present, cholesterol greater than 240 mg/dL, triglycerides greater than 1 50 mg/dL, or HDL less than 40 mg/dL. Triglycerides 214 (H) 0 - 150 mg/dL [facility] AN CLINIC LAB HDL Cholesterol 33 (L) 50 - 110 mg/dL [facility] LDL Cholesterol Calculated 115 0 - 129 mg/dL [facility] Comment: LDL Cholesterol is the primary guide to therapy: LDL-cholesterol goal in high risk patients is <100 mg/dL and in very high risk patients is <70 mg/dL. VLDL-Cholesterol 43 (H) 0 - 30 mg/dL [place] E [facility] LAB Cholesterol/HDL Ratio 5.7 (H) 0.0 - 5.0 [facility] Specimen Anatomical Collection Method Collection Time Receive d Time (Source) Location / / Volume Laterality Blood specimen 10/22/2010 10:57 1 (specimen) AM CDT 10:58 AM CDT Tiffany Leonard MD LAB - BLOOD ORDERABLES Performing Organization Address City/State/ZIP Code Phon e Number [address] [address] [facility] LAB documented in this encounter [...] mammogram documented in this encounter Care Teams Occupational Therapist Rehab Manager Relationship Specialty Start Date End Date Tiffany Leonard MD PCP - General 04/16/01 05/23/21 documented as of this encounter
--- OUTSIDE RECORDS SUMMARY | 2022-02-03 08:05 | XMS_ITS | Encounter Summary ---
:1945 Author Organization [facility] Address [address] [place] [address]. [place] [address] Care Team Providers Name Role Phone Tiffany Leonard MD Primary Care Provider [phone] Reason for Visit Reason Onset Date Comments Patient/info Update 03/05/2011 Encounter Details Date Type Department Care Team Description 03/05/2011 Telephone [facility] Tiffany Leonard P atient/info Update Clinic Tammy BARRIENTOS [address] [address] [address] [place] [address] [phone] Social History Tobacco Use Types Packs/Day Years [...] with this plan of care.Tash Smith RN. UTATOR UNDERCUTTER documented in this encounter Plan of Treatment Not on filedocumented as of this encounter Visit Diagnoses Not on filedocumented in this encounter Care Teams Office Machines Wirer Relationship Specialty Start Date End Date Tiffany Leonard MD PCP - General 04/16/01 05/23/21 documented as of this encounter
--- OUTSIDE RECORDS SUMMARY | 2022-02-03 08:05 | XMS_ITS | Encounter Summary ---
:1945 Author Organization [facility] Address [address] [place] [address]. [place] [address] Care Team Providers Name Role Phone Tiffany Leonard MD Primary Care Provider [phone] Reason for Visit Reason Onset Date Comments Prior Authorization 01/21/2010 Prevacid Encounter Details Date Type Department Care Team Description 01/21/2010 Telephone [facility] Tiffany Leonard Prior [facility] Tammy Marinelli MD (Prevacid) [address] [address] [address] [place] [address] [phone] Social History Tobacco Use Types Packs/Day Years [...] future reference if needed. Lissa Lara MA CARE MANAGER documented in this encounter Plan of Treatment Not on filedocumented as of this encounter Visit Diagnoses Not on filedocumented in this encounter Care Teams Stack Supervisor Relationship Specialty Start Date End Date Tiffany Leonard MD PCP - General 04/16/01 05/23/21 documented as of this encounter
--- OUTSIDE RECORDS SUMMARY | 2022-02-03 08:05 | XMS_ITS | Encounter Summary ---
:1945 Author Organization [facility] Address [address] [place] [address] Care Team Providers Name Role Phone Tiffany Leonard MD Primary Care Provider [phone] Reason for Visit Reason Comments Diabetes Education diet and meter education Encounter Details Date Type Department Care Team Description 08/08/2009 Allied Health/Nurse [facility] Education Visit Clinic [place] (diet and meter [address] education) [address] [place] [phone] Social History Tobacco Use Types Packs/Day Years [...] to 1 hr daily 2--follow MY PLATE GLAZE CARRIER and start carb counting in 3-4 days. [...] problem in portion control. lInstructed on MYPLATE GLAZE CARRIER & carb counting. Patient is to eat 3 to 4 carb units per meal with 1 to 2 snacks per day of 1 to 2 carb units. Handouts--MY PLATE GLAZE CARRIER, CARB COUNTING QUIDE, and 100 CALORIE SNACKS. [...] 08/08/2009 8:00 AM CDT >> CHAD MORRISON Wed Aug 08, 2009 9:42 AM Patient presents with: [...] uncontrolled documented in this encounter Care Teams Guide Cruise Relationship Specialty Start Date End Date Tiffany Leonard MD PCP - General 04/16/01 05/23/21 documented as of this encounter
--- OUTSIDE RECORDS SUMMARY | 2022-02-03 08:05 | XMS_ITS | Encounter Summary ---
:1945 Author Organization [facility] Address [address] [place] [address] Care Team Providers Name Role Phone Tiffany Leonard MD Primary Care Provider [phone] Encounter Details Date Type Department Care Team Description 11/05/2010 Results Only [facility] Tiffany Leonard Co nlon, Hospital Results [address] [place], [place] [address] (Wo rk) Social History [...] on filedocumented in this encounter Care Teams Machine Group Leader Relationship Specialty Start Date End Date Tiffany Leonard MD PCP - General 04/16/01 05/23/21 documented as of this encounter
--- OUTSIDE RECORDS SUMMARY | 2022-02-03 08:05 | XMS_ITS | Encounter Summary ---
:1945 Author Organization [facility] Address [address] [place] [address] Care Team Providers Name Role Phone Tiffany Leonard MD Primary Care Provider [phone] Reason for Visit Reason Comments Fall Encounter Details Date Type Department Care Team Description 03/05/2011 Emergency [facility] Sharri Cunha Closed h ead injury; [facility] Emergency Dep sienna Nino MD Transient diplopia; [address] [facility] Traumatic hematoma of eyelid ; [place], [place] White matter disease [phone] [address] [address] [place] [id number] (Wo rk) Social History Tobacco Use Types [...] Comments Blood Pressure 155/80 03/05/2011 4:55 PM CAMP PROGRAM DIRECTOR Pulse 54 03/05/2011 3:45 PM CAMP PROGRAM DIRECTOR Temperature 36.6 ??C (97.9 ??F) 03/05/2011 2:15 PM CAMP PROGRAM DIRECTOR Respiratory Rate 18 03/05/2011 3:47 PM CAMP PROGRAM DIRECTOR Oxygen Saturation 100% 03/05/2011 3:47 PM CAMP PROGRAM DIRECTOR Inhaled Oxygen Concentration - - Weight - - Height - - Body Mass Index - - documented in this encounter Discharge Instructions Discharge InstructionsSharri Cunha MD - 03/05/2011 4:41 PM CAMP PROGRAM DIRECTOR Discuss further brain imaging (MRI) with your doctor to further evaluate the chronic appearing whitematter changes. Take aspiring daily. PROGRAM DIRECTOR AttachmentsThe following attachments cannot be sent through Care Everywhere.HEAD INJURY, NO WAKE-UP (ADULT) (ITALIAN)documented in this encounter Medications at Time of [...] 0 07/31 1200 MG OR HOURS NEEDED [id number]: Bronchitis acute ACCU-CHEK STEPHEN use as directed [...] visual acuity done by ERT, awaiting CT. PROGRAM DIRECTOR Radha Barrow RN - 03/05/2011 2:45 PM CST Blood sugar 103, notified, no distress. PROGRAM DIRECTOR Sharri Cunha MD - 03/05/2011 2:28 PM [...] to me. Sharri Cunha MD 03/08/11 1030 PROGRAM DIRECTOR Yazmin Reynoso RN - 03/05/2011 2:15 PM CST Fell last Thursday am. Pt reports syncope she has a black right eye. Now pt is reporting blurry vision. PROGRAM DIRECTOR documented in this encounter Plan of Treatment Not on filedocumented as of this encounter Procedures Procedure Name Priority Date/Time Associated Diagnosis Comme nts CT TEMPORAL W/O STAT 03/05/2011 3:45 PM Result s for this CONTRAST CAMP PROGRAM DIRECTOR procedure are i n the results section. CT HEAD W/O STAT 03/05/2011 3:44 PM Results f or this CONTRAST CAMP PROGRAM DIRECTOR procedure are i n the results section. GLUCOSE BY METER Routine 03/05/2011 2:43 PM Resul ts for this CAMP PROGRAM DIRECTOR procedure are i n the results section. documented in this encounter Results CT Temporal orbital sella w/o contrast (03/05/2011 3:45 PM CAMP PROGRAM DIRECTOR) Anatomical Region Laterality Modality Head, SUBRAD CT NEURO, SUBRAD CT NEURO, UMP CT NEURO Computed Tomography Specimen (Source) Anatomical Collection Method Collection Time Re ceived Time Location / / Volume Laterality 03/05/2011 3:45 PM CAMP PROGRAM DIRECTOR Impressions 03/05/2011 4:[address] SCAN OF THE FACE WITHOUT CONTRAST [...] facia l bone fracture. Sharri Cunha MD [facility] ORDERABLES Head CT w/o contrast (03/05/2011 3:44 PM CAMP PROGRAM DIRECTOR) Anatomical Region Laterality Modality Head, SUBRAD CT NEURO, SUBRAD CT NEURO, UMP CT NEURO Computed Tomography Specimen (Source) Anatomical Collection Method Collection Time Re ceived Time Location / / Volume Laterality 03/05/2011 3:44 PM CAMP PROGRAM DIRECTOR Impressions 03/05/2011 4:24 [address]AMP PRO[address] DIRECT[address] CT SCAN OF THE HEAD WITHOUT CONTRAST [...] scan of the brain. Sharri Cunha MD [facility] ORDERABLES (ABNORMAL) Glucose by meter (03/05/2011 2:43 PM CAMP PROGRAM DIRECTOR) P athologist Signature Glucose 103 (H) 60 - 99 POINT OF CARE mg/dL TEST, GLUCOSE Comment: RN/Dr notified Specimen Anatomical Collection Method Collection Time Receive d Time (Source) Location / / Volume Laterality 03/05/2011 2:43 PM 2 3:55 CAMP PROGRAM DIRECTOR PM CAMP PROGRAM DIRECTOR Sharri Cunha MD [facility] POCT Performing Organization Address City/State/ZIP Code Phon e Number [facility] POINT OF CARE TEST, GLUCOSE POINT OF CARE TEST, GLUCOSE documented in this encounter Visit Diagnoses Diagnosis Closed head injury Head injury, unspecified Transient diplopia Diplopia Traumatic hematoma of eyelid Contusion of eyelids and periocular area White matter disease Other conditions of brain documented in this encounter Care Teams Fur Weigher Relationship Specialty Start Date End Date Tiffany Leonard MD PCP - General 04/16/01 05/23/21 documented as of this encounter
--- OUTSIDE RECORDS SUMMARY | 2022-02-03 08:05 | XMS_ITS | Encounter Summary ---
:1945 Author Organization [facility] Address [address] [place] [address] Care Team Providers Name Role Phone Tiffany Leonard MD Primary Care Provider [phone] Reason for Visit Reason Comments Diabetes Encounter Details Date Type Department Care Team Description 08/27/2009 Office Visit [facility] Silke Muro w/o Complication Clinic [place] [address] Type II (Primary Dx) [facility] DIABETES [address] [place] [id number] 20 [place], [place] [address] Social History Tobacco Use Types Packs/Day Years [...] Primary documented in this encounter Care Teams Patternmaker Bench Relationship Specialty Start Date End Date Tiffany Leonard MD PCP - General 04/16/01 05/23/21 documented as of this encounter
--- OUTSIDE RECORDS SUMMARY | 2022-02-03 08:05 | XMS_ITS | Encounter Summary ---
:1945 Author Organization [place] Address [address] [place] [address]. [place] [address] Care Team Providers Name Role Phone Tiffany Leonard MD Primary Care Provider [phone] Encounter Details Date Type Department Care Team Description 08/28/2010 Abstract [facility] Tiffany Leonard DIAGNOSIS NOT YET Clinic Darrian Marinelli MD DEFINED (Primary Dx) [address] [place] [address] [facility] [address] [place] [address] [place], [place] [phone] (Wo rk) [address] [phone] Social History Tobacco Use Types Packs/Day Years [...] Primary documented in this encounter Care Teams Roller Operator Relationship Specialty Start Date End Date Tiffany Leonard MD PCP - General 04/16/01 documented as of this encounter
--- OUTSIDE RECORDS SUMMARY | 2022-02-03 08:05 | XMS_ITS | Encounter Summary ---
:1945 Author Organization [place] Address [address] [place] [address] Care Team Providers Name Role Phone Tiffany Leonard MD Primary Care Provider [phone] Encounter Details Date Type Department Care Team Description 05/30/[address] [facility] [place] roalbuminuria; [facility] Vitamin D deficiencies; [address] Type 2 diabetes, HbA1C goal < 7% (H); [place] [address] Hyperlipidemia LDL goal <100 ; [phone] ASCVD Social History Tobacco Use Types Packs/Day [...] athologist Signature TSH 1.87 0.4 - 5.0 [facility] mU/L CLINIC LAB Specimen Anatomical Collection Method Collection Time Receive d Time (Source) Location / / Volume Laterality Blood specimen 05/30/2010 8:03 AM 011 8:04 (specimen) CDT AM CDT Tiffany Leonard MD LAB - BLOOD ORDERABLES Performing Organization Address City/State/ZIP Code Phon e Number [facility] [address] [place] [address] [facility] LAB (ABNORMAL) Comprehensive metabolic panel (05/30/2010 8:03 AM CDT) athologist Signature Sodium 146 (H) 133 - 144 [place] mmol/L [facility] Potassium 4.2 3.4 - 5.3 [facility] mmol/L [facility] Chloride 105 94 - 109 [facility] mmol/L [facility] Carbon Dioxide 31 20 - 32 [facility] mmol/L [facility] Anion Gap 11 6 - 17 [place] mmol/L [facility] Glucose 92 60 - 99 [facility] mg/dL [facility] Urea Nitrogen 15 7 - 30 [facility] mg/dL [facility] Creatinine 0.63 0.52 - [facility] 1.04 mg/dL [facility] GFR Estimate >90 >60 [facility] mL/min/1.7 [facility] m2 LAB GFR Estimate If >90 >60 [facility] Black mL/min/1.7 [facility] m2 LAB Calcium 9.6 8.5 - 10.4 [facility] mg/dL [facility] Bilirubin Total 0.5 0.2 - 1.3 [facility] mg/dL [facility] LAB Albumin 4.2 3.3 - 4.9 [facility] g/dL [facility] LAB Comment: Reference range changed on 11/01. Protein Total 7.1 6.8 - 8.8 g/dL [facility] EA JORGE [facility] LAB Comment: As of 07, reference range reflects plasma specimen type. Alkaline Phosphatase 58 40 - 150 U/L [facility] ALT 16 0 - 50 U/L [facility] AST 20 0 - 45 U/L [facility] CLIN IC LAB Specimen Anatomical Collection Method Collection Time Receive d Time (Source) Location / / Volume Laterality Blood specimen 05/30/2010 8:03 AM 011 8:04 (specimen) CDT AM CDT Tiffany Leonard MD LAB - BLOOD ORDERABLES Performing Organization Address City/[facility]/ZIP Code Phon e Number [facility] [address] [place] [address] [facility] LAB Hemoglobin A1c (05/30/2010 8:03 AM CDT) athologist Signature Hemoglobin A1C 5.8 4.3 - 6.0 [facility] % [facility] LAB Specimen Anatomical Collection Method Collection Time Receive d Time (Source) Location / / Volume Laterality Blood specimen 05/30/2010 8:03 AM 011 8:04 (specimen) CDT AM CDT Tiffany Leonard MD LAB - BLOOD ORDERABLES Performing Organization Address City/[facility] Phon e Number [facility] [address] [place], [place] [address] [facility] LAB (ABNORMAL) Lipid panel reflex to direct LDL (05/30/2010 8:03 AM CDT) athologist Signature Cholesterol 191 0 - 200 [facility] mg/dL CLINIC LAB Comment: LDL Cholesterol is the primary guide to therapy. The NCEP recommends further evaluation of: patients with cholesterol <200 mg/dL if additional risk factors are present, cholesterol >240 mg/dL, triglycerides >150 mg/dL, or HDL <40 mg/dL. Triglycerides 210 (H) 0 - 150 mg/dL [facility] LAB HDL Cholesterol 34 (L) 50 - 110 mg/dL [facility] LAB LDL Cholesterol Calculated 115 0 - 129 mg/dL [facility] LAB Comment: LDL Cholesterol is the primary guide to therapy: LDL-cholesterol goal in high risk patients is <100 mg/dL and in very high risk patients is <70 mg/dL. VLDL-Cholesterol 42 (H) 0 - 30 mg/dL [facility] LAB Cholesterol/HDL Ratio 5.6 (H) 0.0 - 5.0 [facility] LAB Specimen Anatomical Collection Method Collection Time Receive d Time (Source) Location / / Volume Laterality Blood specimen 05/30/2010 8:03 AM 011 8:04 (specimen) CDT AM CDT Tiffany Leonard MD LAB - BLOOD ORDERABLES Performing Organization Address City/[facility]/ZIP Code Phon e Number [address] [address] [facility] LAB Vitamin D deficiency screening (05/30/2010 8:03 AM CDT) Component Value Ref Test Analysis Performed At [facility] Range Method Time Signature 25 [place] Vit D2 <5 ug/L [facility] LABS 25 [place] Vit D3 46 ug/L [facility] LABS 25 [place] Vit D <51 30 - 75 [facility] total Season, race, dietary intake, and treatm ent affect the concentration of ug/L [place] 45-qoisnod-Cpkhgib D. Values may decrease during ye er [...] Organization Address City/State/ZIP Code Phon e Number [facility] [address] [place] [address] [facility] LABS (ABNORMAL) MICROALBUMIN (INC URINE CREAT) (05/30/2010 8:03 AM CDT) Patholo gist Method Time Signature Creatinine 158 mg/dL [facility] Urine [facility] LABS Albumin Urine 46 mg/L [facility] mg/L [facility] LABS Albumin Urine 29.11 (H) 0 - 20 [facility] mg/g Cr mg/g Cr [facility] LABS Specimen Anatomical Collection Method Collection Time Receive d Time (Source) Location / / Volume Laterality 05/30/2010 8:03 AM 1 8:04 CDT AM CDT Tiffany Leonard MD LABORATORY Performing Organization Address City/State/[facility] Code Phon e Number [facility] [address] [place], [place] [id number] [place] [address] LABS documented in this encounter Visit Diagnoses Diagnosis Microalbuminuria Proteinuria Vitamin D deficiencies Unspecified vitamin D deficiency Type 2 diabetes, HbA1c goal < 7% (H) Type II or unspecified type diabetes aubrey litus without mention of complication, not stated as uncontrolled Hyperlipidemia LDL goal <100 Other and unspecified hyperlipidemia ASCVD Unspecified cardiovascular disease documented in this encounter Care Teams Psych Specialist Relationship Specialty Start Date End Date Tiffany Leonard MD PCP - General 04/16/01 05/23/21 documented as of this encounter
--- OUTSIDE RECORDS SUMMARY | 2022-02-03 08:05 | XMS_ITS | Encounter Summary ---
:1945 Author Organization [place] Address [address] [place] [address]. [place] [address] Care Team Providers Name Role Phone Tiffany Leonard MD Primary Care Provider [phone] Reason for Visit Reason Onset Date Comments Refill Request 11/27/2010 fosamax Encounter Details Date Type Department Care Team Description 11/27/2010 MyC Refill [facility] Tiffany Leonardill [facility] Tammy Marinelli MD (fosamax) [address] [address] [place] [address] [phone] Social History Tobacco Use Types Packs/Day Years [...] - 11/27/2010 1:40 PM CDT Message from [employer]: Original authorizing provider: Tiffany Leonard MD, MD Nunez Melina Maxwellemeka would like a refill of the following medications: ALENdronate (FOSAMAX) 70 MG tablet [Tiffany Leonard MD, ] Preferred pharmacy: [facility] Comment: Could you please fax the above RX to [facility]. I was going to fill it locally but it is now available through the pharmacy like my other prescriptions. They prefer it be sent via [facility]. Thank you. documented in this encounter Plan of Treatment Not on filedocumented as of this encounter Visit Diagnoses Diagnosis Osteoporosis, unspecified - Primary documented in this encounter Care Teams Tumbler Operator Relationship Specialty Start Date End Date Tiffany Leonard MD PCP - General 04/16/01 05/23/21 documented as of this encounter
--- OUTSIDE RECORDS SUMMARY | 2022-02-03 08:05 | XMS_ITS | Encounter Summary ---
:1945 Author Organization [place] Address [address] [place] [address] Care Team Providers Name Role Phone Tiffany Leonard MD Primary Care Provider [phone] Reason for Visit Reason Comments Diabetes Education Encounter Details Date Type Department Care Team Description 08/20/2009 Office Visit [facility] Shauna Lopes DM w/o Complication CLINIC XX RESIGNED XX Type II, Uncontrolled [place], [place] (Primary Dx) [address] Social History Tobacco [...] up: I will follow up with my clinical trial educator: At classes documented in this encounter Progress [...] since last visit Language(s) spoken at home: [place] ROS: Patient experiencing the following diabetes related [...] Primary documented in this encounter Care Teams Sleeping Car Conductor Relationship Specialty Start Date End Date Tiffany Leonard MD PCP - General 04/16/01 05/23/21 documented as of this encounter
--- OUTSIDE RECORDS SUMMARY | 2022-02-03 08:05 | XMS_ITS | Encounter Summary ---
:1945 Author Organization [place] Address [address] [place] [address] Care Team Providers Name Role Phone Tiffany Leonard MD Primary Care Provider [phone] Encounter Details Date Type Department Care Team Description 07/21/2010 Orders Only [facility] Tiffany Leonard Type 2 di abetes, HbA1C goal < 7% (H); Clinic Cindy Marinelli MD Hyperlipidemia LDL goal <100 [address] [address] [place] [address] [facility] [place] [phone] Social History Tobacco Use Types Packs/Day Years [...] hyperlipidemia documented in this encounter Care Teams Roll Plugger Machine Operator Relationship Specialty Start Date End Date Tiffany Leonard MD PCP - General 04/16/01 05/23/21 documented as of this encounter
--- OUTSIDE RECORDS SUMMARY | 2022-02-03 08:06 | XMS_ITS | Encounter Summary ---
:1945 Author Organization [place] Address [address] [place] [address] Care Team Providers Name Role Phone Tiffany Leonard MD Primary Care Provider [phone] Encounter Details Date Type Department Care Team Description 07/05/2008 Orders Only [facility] Tiffany Leonard DIAGNOSIS NOT YET Clinic Darrian Marinelli MD DEFINED (Primary Dx) [address] [address] [place] [address] [address] [place] [address] Social History Tobacco Use Types Packs/Day [...] Name Priority Date/Time Associated Diagnosis Comme nts ABSTRACT MAMMO-NO CHARGE Routine 07/05/2008 documented in this encounter Results ABSTRACT MAMMO-NO CHARGE (07/05/2008) Anatomical Region Laterality Modality Other Narrative This result has an attachment that is no t available. Tiffany Leonard MD GENERAL IMAGING documented in this encounter Visit Diagnoses Diagnosis DIAGNOSIS NOT YET DEFINED - Primary documented in this encounter Care Teams Clay Machine Operator Relationship Specialty Start Date End Date Tiffany Leonard MD PCP - General 04/16/01 05/23/21 documented as of this encounter
--- OUTSIDE RECORDS SUMMARY | 2022-02-03 08:06 | XMS_ITS | Encounter Summary ---
:1945 Author Organization [place] Address [address] [place] [address] Care Team Providers Name Role Phone Tiffany Leonard MD Primary Care Provider [phone] Encounter Details Date Type Department Care Team Description 09/30/2006 Orders Only [facility] Tiffany Leonard OSTEOPORO SIS NOS Clinic Darrian Marinelli MD (Primary Dx) [address] [address] [place] [address] [address] [place] [address] Social History Tobacco Use Types Packs/Day [...] Primary documented in this encounter Care Teams Dehydrating Press Operator Relationship Specialty Start Date End Date Tiffany Leonard MD PCP - General 04/16/01 05/23/21 documented as of this encounter
--- OUTSIDE RECORDS SUMMARY | 2022-02-03 08:06 | XMS_ITS | Encounter Summary ---
:1945 Author Organization [place] Address [address] [place] [address] Care Team Providers Name Role Phone Tiffany Leonard MD Primary Care Provider [phone] Encounter Details Date Type Department Care [...] as of this encounter Progress Notes Interface, Laboratory Technology Teacher - 05/20/2010 12:11 PM CDT General Information General Information - <R> How to be addressed Mayra - <R> Microstrategy Bi Developer Needed No Patient Contact Information - <R> salesperson neckties to Reinaldo Quinn- notify: - Contact Location: Home Local - <R> Phone 1: [phone] home - Cell cell - salesperson neckties #2: Carmita Velásquez (dtg) - Contact Location: [facility] - Phone 1: [phone] Home Advance Directive [facility] Directive [...] - Cardiac Conditions/Symptoms Hypertension; Myocardial infarction; 1988 OK with sten x1 - Usual Blood Pressure [...] Does not wish to have anyone contacted care/clergy/it risk advisor notified? Mutuality/Individual Preferences Mutuality/Preferences - <R> [...] on filedocumented in this encounter Care Teams Hat Cutter Relationship Specialty Start Date End Date Tiffany Leonard MD PCP - General 04/16/01 05/23/21 documented as of this encounter
--- OUTSIDE RECORDS SUMMARY | 2022-02-03 08:06 | XMS_ITS | Encounter Summary ---
:1945 Author Organization [place] Address [address] [place] [address] Care Team Providers Name Role Phone Fernanda Fernandez MD Primary Care Provider [phone] Reason for Visit Reason Comments Physical Mammo 07-21-07 at [facility] Colonoscopy 08-22-02 normal at [facility]. 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 Dexa: Per [facility], now on Fosamax, Mammo:2008 unilateral due to [...] and radiation; Tamoxifen, now Arimedex; followed at [facility] ??? Unspecified Cardiovascular Disease 1989 [facility] ??? Unspecified Osteoporosis Fosamax Past Surgical History Procedure Date ??? Mastectomy, mod radical (any) 1998 right ??? Hysterectomy, karen 1989 Fibroid ??? [...] Self Exams Yes breast cancer followed by [facility] Social History Narrative ??? 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 PT FASTING Imm/Inj - pt would like [...] Health Care the results Facility section. HCL HEMOGLOBIN NONLAB Routine 05/24/2008 11:12 Routine General Results for this AM CDT Medical Examination procedur e are in at a Health Care the results Facility section. HCL COMPREHENSIVE Routine 05/24/2008 11:12 Routine General Res ults for this METABOLIC PANEL AM CDT Medical Examination proce dure are in at a Health Care the results Facility section. Mixed Hyperlipid [...] Component Value Ref Test Analysis Performed At [facility] Range Method Time Signature 25 [place] Vit D2 <5 ug/L [facility] LABS 25 [place] Vit D3 11 ug/L [facility] LABS 25 [place] Vit D <16 30 - 75 [facility] total Season, race, dietary intake, and treatm ent affect the concentration of ug/L [place] 93-inbiygr-Qbwqois D. Values may decrease during ye er months and increase CAMPUS LABS during summer months. Values less than 30 ug/L may indicate Vitamin D deficiency. (L) Specimen Anatomical Collection Method Collection Time Receive d Time (Source) Location / / Volume Laterality 05/24/2008 11:12 05/24/2008 AM CDT 11:17 AM CDT Fernanda Fernandez MD LABORATORY Performing Organization Address City/State/ZIP Code Phon e Number [facility] [address] [place] [address] [facility] LABS TSH W/FREE T4 REFLEX (05/24/2008 11:12 AM CDT) athologist Signature TSH 1.27 0.4 - 5.0 [facility] mU/L CLINIC LAB Specimen Anatomical Collection Method Collection Time Receive d Time (Source) Location / / Volume Laterality 05/24/2008 11:12 05/24/2008 AM CDT 11:17 AM CDT Fernanda Fernandez MD LABORATORY Performing Organization Address City/State/ZIP Code Phon e Number [facility] [address] [place] [address] [facility] LAB HGB (05/24/2008 11:12 AM CDT) athologist Signature Hemoglobin 13.5 11.7 - 15.7 [place] g/dL CLINIC LAB Specimen Anatomical Collection Method Collection Time Receive d Time (Source) Location / / Volume Laterality 05/24/2008 11:12 05/24/2008 AM CDT 11:17 AM CDT Fernanda Fernandez MD LABORATORY Performing Organization Address City/State/ZIP Code Phon e Number [facility] [address] [place], [place] [address] [address] [facility] LAB (ABNORMAL) A.M.A. COMPREHENSIVE MET.PANEL (05/24/2008 11:12 AM CDT) athologist Signature Sodium 142 133 - 144 [place] mmol/L [facility] LAB Potassium 4.1 3.4 - 5.3 [place] mmol/L [facility] Chloride 102 94 - 109 [place] mmol/L [facility] Carbon Dioxide 28 20 - 32 [place] mmol/L [facility] Anion Gap 11 6 - 17 [place] mmol/L [facility] Glucose 122 (H) 60 - 99 [place] mg/dL [facility] Urea Nitrogen 13 7 - 30 [place] mg/dL [facility] Creatinine 0.59 0.52 - [place] 1.04 mg/dL [facility] Comment: New IDMS-traceable calibration beginning 07/01/07 GFR Estimate >90 >60 mL/min/1.7m2 [place] E [facility] LAB GFR Estimate If Black >90 >60 mL/min/1.7m2 F [facility] LAB Calcium 9.1 8.5 - 10.4 mg/dL [facility] LAB Bilirubin Total 0.3 0.2 - 1.3 mg/dL [facility] LAB Albumin 3.8 3.3 - 4.9 g/dL [facility] LAB Comment: Reference range changed on 11/01. Protein Total 7.0 6.8 - 8.8 g/dL [place] [facility] LAB Comment: As of 07, reference range reflects plasma specimen type. Alkaline Phosphatase 82 40 - 150 U/L [facility] ALT 19 0 - 50 U/L [facility] LAB AST 23 0 - 45 U/L [facility] CLIN IC LAB Specimen Anatomical Collection Method Collection Time Receive d Time (Source) Location / / Volume Laterality 05/24/2008 11:12 05/24/2008 AM CDT 11:17 AM CDT Fernanda Fernandez MD LABORATORY Performing Organization Address [facility]/ZIP Code Phon e Number [facility] [address] [place] [address] [phone] [facility] LAB (ABNORMAL) A.M.A. LIPID PANEL (05/24/2008 11:12 AM CDT) athologist Signature Cholesterol 170 0 - 200 [facility] mg/dL CLINIC LAB Comment: LDL Cholesterol [...] Triglycerides 241 (H) 0 - 150 mg/dL [facility] LAB HDL Cholesterol 27 (L) 50 - 110 mg/dL [facility] LAB LDL Cholesterol Calculated 94 0 - 129 mg/dL [facility] LAB Comment: LDL Cholesterol is the primary guide to therapy: LDL-cholesterol goal in high risk patients is <100 mg/dL and in very high risk patients is <70 mg/dL. VLDL-Cholesterol 48 (H) 0 - 30 mg/dL [facility] LAB Cholesterol/HDL Ratio 6.2 (H) 0.0 - 5.0 [facility] LAB Specimen Anatomical Collection Method Collection Time Receive d Time (Source) Location / / Volume Laterality 05/24/2008 11:12 05/24/2008 AM CDT 11:17 AM CDT Fernanda Fernandez MD LABORATORY Performing Organization Address [facility]/ZIP Code Phon e Number [facility] [address] [place] [address] [phone] [facility] documented in this encounter Visit Diagnoses [...] deficiency documented in this encounter Care Teams Assembler Fluorescent Lights Relationship Specialty Start Date End Date Fernanda Fernandez MD PCP - General 04/16/01 05/23/21 documented as of this encounter
--- OUTSIDE RECORDS SUMMARY | 2022-02-03 08:06 | XMS_ITS | Encounter Summary ---
:1945 Author Organization [facility] Address [address] [place] [address]. [place] [address] Care Team Providers Name Role Phone Tiffany Leonard MD Primary Care Provider [phone] Encounter Details Date Type Department Care Team Description 10/23/2006 Operative Report Lora Aguilar MD (Painting Contractor) [place] OPHTHALMIC [address] AST SURG [address] [facility] [address] [place] [address] (Wo rk) Social History Tobacco Use Types Packs/Day Years Used Date Smoking Tobacco: Former Cigarettes Quit : 05/14/1988 Alcohol Use Standard Drinks/Week Comments No 0 (1 standard drink = 0.6 oz pure alcoho l) Sex Assigned at Date Recorded Female 05/22/2021 3:03 PM CDT documented as of this encounter Progress Notes Lora Aguilar - 11/06/2006 11:12 AM CDT FINAL 1st Rcp: 2nd Rcp: PREOPERATIVE DIAGNOSIS: 1. Bilateral upper eyelid ptosis. [...] lg Name: ORLIN NUNEZ MRN: [id number] Account: [id number] : 1945 Procedure Date: 10/23/2006 Document: [id number] documented in this encounter Plan of Treatment Not on filedocumented as of this encounter Visit Diagnoses Not on filedocumented in this encounter Care Teams Circulation Sales Representative Relationship Specialty Start Date End Date Tiffany Leonard MD PCP - General 04/16/01 05/23/21 documented as of this encounter
--- OUTSIDE RECORDS SUMMARY | 2022-02-03 08:06 | XMS_ITS | Encounter Summary ---
:1945 Author Organization [facility] Address [address] [place] [address] Care Team Providers Name Role Phone Tiffany Leonard MD Primary Care Provider [phone] Encounter Details Date Type Department Care Team Description 09/27/2006 Admission H&P [facility] Travis Araiza (Environmental Construction Engineer) Hospitalists MD Sarabjit [address] [facility] [address] [phone] [place] [address] 01 (Wo rk) Social History Tobacco Use [...] MEDICAL HISTORY: 1. Coronary artery disease with MT in 1988. 2. Mastectomy. 3. Breast cancer. 4. Neuropathy. SOCIAL HISTORY: , no tobacco, no alcohol. She is retired. FAMILY HISTORY: Mother 80 has COPD. Father 58, of MT, stroke, brother, 27, of heart disease. REVIEW [...] infarction. The patient will be admitted to [facility] and have a troponin in six hours. [...] CHRISTIAN Name: ORLIN NUNEZ MRN: [id number] Account: [id number] : 1945 Admitted: [id number] Document: [id number] cc: Tiffany Leonard MD documented in this encounter Plan of Treatment Not on filedocumented as of this encounter Visit Diagnoses Not on filedocumented in this encounter Care Teams Circulation Librarian Relationship Specialty Start Date End Date Tiffany Leonard MD PCP - General 04/16/01 05/23/21 documented as of this encounter
--- OUTSIDE RECORDS SUMMARY | 2022-02-03 08:06 | XMS_ITS | Encounter Summary ---
:1945 Author Organization [facility] Address [address] [place] [address] Care Team Providers Name Role Phone Tiffany Leonard MD Primary Care Provider [phone] Encounter Details Date Type Department Care Team Description 07/21/2007 Abstract [facility] Abstract, Provid er LABS FROM [facility] [address] [place] [address] Social History Tobacco Use Types Packs/Day [...] . documented in this encounter Results TRIGLYCERIDES [77636.000] (07/21/2007) P athologist Signature Triglycerides 188@ mg/dL MISYS Provider Abstract LABORATORY Performing Organization Address [facility] Phon e Number MISYS HDL CHOLESTEROL [11491.000] (07/21/2007) P athologist Signature HDL Cholesterol 31@ mg/dL MISYS Provider Abstract LABORATORY Performing Organization Address [facility] Phon e Number MISYS LDL-CHOLESTEROL [96191.001] (07/21/2007) P athologist Signature LDL Cholesterol 103@ mg/dL MISYS Calculated Provider Abstract LABORATORY Performing Organization Address [facility] [place] Phon e Number MISYS CHOLESTEROL [24276.000] (07/21/2007) P athologist Signature Cholesterol 172@ 115 - 199 MISYS mg/dL Provider Abstract LABORATORY Performing Organization Address [facility] Phon e Number MISYS CREATININE [62328.000] (07/21/2007) P athologist Signature Creatinine 0.6@ mg/dL MISYS Provider Abstract LABORATORY Performing Organization Address [facility] Phon e Number MISYS AST [42263.000] (07/21/2007) P athologist Signature AST 16@ U/L MISYS Provider Abstract LABORATORY Performing Organization Address [facility] Phon e Number MISYS ABSTRACT MAMMO-NO CHARGE (07/21/2007) Anatomical Region Laterality Modality Other Narrative This result has an attachment that is no t available. Provider Abstract GENERAL IMAGING documented in this encounter Visit Diagnoses Diagnosis DIAGNOSIS NOT YET DEFINED - Primary documented in this encounter Care Teams Network Analyst Relationship Specialty Start Date End Date Tiffany Leonard MD PCP - General 04/16/01 05/23/21 documented as of this encounter
--- OUTSIDE RECORDS SUMMARY | 2022-02-03 08:06 | XMS_ITS | Encounter Summary ---
:1945 Author Organization [facility] Address [address] [place] [address] Care Team Providers Name Role Phone Tiffany Leonard MD Primary Care Provider [phone] Encounter Details Date Type Department Care Team Description 07/08/2006 Orders Only [facility] Tiffany Leonard DIAGNOSIS NOT YET Clinic Darrian Marinelli MD DEFINED (Primary Dx) [address] [address] [place] [address] [address] [place] [address] Social History Tobacco Use Types [...] Primary documented in this encounter Care Teams Profiling Machine Setup Operator Relationship Specialty Start Date End Date Tiffany Leonard MD PCP - General 04/16/01 05/23/21 documented as of this encounter
--- OUTSIDE RECORDS SUMMARY | 2022-02-03 08:06 | XMS_ITS | Encounter Summary ---
:1945 Author Organization [place] Address [address] [place] [address] Care Team Providers Name Role Phone Tiffany Leonard MD Primary Care Provider [phone] Encounter Details Date Type Department Care Team Description 2006 Historic Results [facility] Heart Unknown, [facility] [address] [place] [address] Social History Tobacco Use Types Packs/Day [...] Name Priority Date/Time Associated Diagnosis Comme nts NUCLEAR CARDIAC - HIM 2006 12:00 AM CDT SCAN - ARCHIVE documented in this encounter Results NUCLEAR CARDIAC - HIM SCAN - ARCHIVE (2006 12:00 AM CDT) Anatomical Region Laterality Modality Other Specimen (Source) Anatomical Location Collection Method / Collectio n Time Received Time / Laterality Volume 2006 Narrative This result has an attachment that is no t available. Provider Scan IMG NM ORDERABLES documented in this encounter Visit Diagnoses Not on filedocumented in this encounter Care Teams Neck Cutter Relationship Specialty Start Date End Date Tiffany Leonard MD PCP - General 04/16/01 05/23/21 documented as of this encounter
--- OUTSIDE RECORDS SUMMARY | 2022-02-03 08:06 | XMS_ITS | Encounter Summary ---
:1945 Author Organization [facility] Address [address] [place] [address] Care Team Providers Name Role Phone Tiffany Leonard MD Primary Care Provider [phone] Encounter Details Date Type Department Care Team Description 07/08/2006 Abstract [facility] Preethi Pagan ED [facility] LABS [address] [place] [address] Social History Tobacco Use [...] . documented in this encounter Results TSH [46433.001] (07/08/2006) P athologist Signature TSH 2.4@ mcU/mL MISYS Preethithao Pagan LABORATORY Performing Organization Address [facility] Phon e Number MISYS TRIGLYCERIDES [95146.000] (07/08/2006) P athologist Signature Triglycerides 213@ mg/dL MISYS Preethi Latasha LABORATORY Performing Organization Address [facility] Phon e Number MISYS HDL CHOLESTEROL [22704.000] (07/08/2006) P athologist Signature HDL Cholesterol 30@ mg/dL MISYS Preethithao Pagan LABORATORY Performing Organization Address [facility] Phon e Number MISYS LDL-CHOLESTEROL [80353.001] (07/08/2006) P athologist Signature LDL Cholesterol 89@ mg/dL MISYS Calculated Preethithao Pagan LABORATORY Performing Organization Address [facility] Phon e Number MISYS CHOLESTEROL [[id number]] (07/08/2006) P athologist Signature Cholesterol 162@ 115 - 199 MISYS mg/dL Preethithao Pagan LABORATORY Performing Organization Address [facility] Phon e Number MISYS CREATININE [70870.000] (07/08/2006) P athologist Signature Creatinine 0.7@ mg/dL MISYS [facility] LABORATORY Performing Organization Address [facility] Phon e Number MISYS AST [02913.000] (07/08/2006) P athologist Signature AST 21@ U/L MISYS [facility] LABORATORY Performing Organization Address [facility] Phon e Number MISYS POTASSIUM [[id number]] (07/08/2006) P athologist Signature Potassium 4.5@ mmol/L MISYS Preethi Pagan LABORATORY Performing Organization Address City/State/ZIP Code Phon e Number MISYS documented in this encounter Visit Diagnoses Diagnosis DIAGNOSIS NOT YET DEFINED - Primary documented in this encounter Care Teams Machine Clothing Man Relationship Specialty Start Date End Date Tiffany Leonard MD PCP - General 04/16/01 05/23/21 documented as of this encounter
--- OUTSIDE RECORDS SUMMARY | 2022-02-03 08:06 | XMS_ITS | Encounter Summary ---
:1945 Author Organization [place] Address [address] [place] [address]. [place] [address] Care Team Providers Name Role Phone Tiffany Leonard MD Primary Care Provider [phone] Reason for Visit Reason Onset Date Comments Refill Request 06/28/2008 Encounter Details Date Type Department Care Team Description 06/28/2008 Refill [facility] Tiffany Leonard MD Refill Request [facility] [id number] [place] [address] [address] [place] [address] [address] [place] [address] [phone] Social History Tobacco Use Types Packs/Day Years [...] AM CDT Re-faxed Rx for Pravachol to [facility], they didn't receive it when faxed 05/24/08. documented in this encounter Plan of Treatment Not on filedocumented as of this encounter Visit Diagnoses Diagnosis Mixed hyperlipidemia documented in this encounter Care Teams Data Collection Technician Relationship Specialty Start Date End Date Tiffany Leonard MD PCP - General 04/16/01 05/23/21 documented as of this encounter
--- OUTSIDE RECORDS SUMMARY | 2022-02-03 08:06 | XMS_ITS | Encounter Summary ---
:1945 Author Organization [place] Address [address] [place] [address] Care Team Providers Name Role Phone Tiffany Leonard MD Primary Care Provider [phone] Encounter Details Date Type Department Care Team Description 2006 Results Only [facility] Results [facility] [address] [place], [place] [address] (Wo rk) Social History [...] be excluded, especially with history of previous MS and PTCA. ??No significant ischemia or o [...] STRESS TST,TRACING ONLY (2006 11:44 AM CDT) [facility] Method Time Signature IMAGECAST RADIOLOGY RESULT ORLIN [...] on filedocumented in this encounter Care Teams Physical Therapy Assistant Relationship Specialty Start Date End Date Tiffany Leonard MD PCP - General 04/16/01 documented as of this encounter
--- OUTSIDE RECORDS SUMMARY | 2022-02-03 08:06 | XMS_ITS | Encounter Summary ---
:1945 Author Organization [facility] Address [address] [place] [address]. [place] [address] Care Team Providers Name Role Phone Tiffany Leonard MD Primary Care Provider [phone] Reason for Visit Reason Onset Date Comments Refill Request 05/04/2006 Encounter Details Date Type Department Care Team Description 05/04/2006 Refill [facility] Tiffany Leonard MD Refill Request [place] [id number] [place] [address] [address] [place] [address] [address] [place] [address] [phone] Social History Tobacco Use Types Packs/Day Years Used Date Smoking Tobacco: Former Cigarettes Quit : 05/14/1988 Alcohol Use Standard Drinks/Week Comments No 0 (1 standard drink = 0.6 oz pure alcoho l) Sex Assigned at Date Recorded Female 05/22/2021 3:03 PM CDT documented as of this encounter Miscellaneous Notes Telephone Encounter - Sivan Wilcox - 05/04/2006 1:11 PM CST Rx called in. HOUSEKEEPER Telephone Encounter - Percy Radha - 05/04/2006 12:51 PM CST These can be called in by a nurse to that line and left on voice mail. They need the patients benefits number and Dr. Leonard's KAYLYNN number. Please call them in. HOUSEKEEPER Telephone Encounter - Agnes Steiner - 05/04/2006 8:44 AM CST would not fill Atenolol 25mg one tablet BID 180 with 3 refills and Pravachol 20mg one tabletdaily at HS 90 with 3. MD line for is . They did not accept these two Rx's d/tcross-outs on the original, but they will fill them if MD calls in on the phone line. She is nearly out of meds. HOUSEKEEPER documented in this encounter Plan of Treatment Not on filedocumented as of this encounter Visit Diagnoses Not on filedocumented in this encounter Care Teams Plant Breeder Scientist Relationship Specialty Start Date End Date Tiffany Leonard MD PCP - General 04/16/01 05/23/21 documented as of this encounter
--- OUTSIDE RECORDS SUMMARY | 2022-02-03 08:06 | XMS_ITS | Encounter Summary ---
:1945 Author Organization [facility] Address [address] [place] [address]. [place] [address] Care Team Providers Name Role Phone Tiffany Leonard MD Primary Care Provider [phone] Reason for Referral - Closed Specialty Diagnoses / Procedures Referred By Contact Refer red To Contact Diagnoses Pain [place] [address] [place] [address] Referral ID Status Reason Start Date Expiration Date Visits Requ ested Visits Authorized [id number] Closed 10/13/2006 03/01/2011 1 1 Reason for Visit Reason Comments Pre-Op Exam Encounter Details Date Type Department Care Team Description 10/13/2006 Office Visit [facility] Tiffany Leonard PREOP EXA M OTHER SPECIFIED (Primary Dx); Clinic Darrian Marinelli MD EYE ANOMALY NOS; [address] [address] [address] VE JOINT PAIN-SHLDER; [place] [facility] OSTEOPOROSIS NOS [address] [address] [place], [place] [phone] [address] (Work) [phone] Social History Tobacco Use Types Packs/Day Years [...] encounter Patient Instructions Patient InstructionsTiffany Leonard - 10/13/2006 1:42 PM CDT Continue [...] of Surgery/ Procedure: 7:30 AM Hospital/Surgical Facility: [facility] Fax number for surgical facility: [phone] Primary Physician: Dr Tiffany Leonard Type of [...] and radiation; Tamoxifen, now Arimedex; followed at [facility] ??? ASCVD [429.2] PTCA ??? OSTEOPOROSIS NOS [733.00] Fosamax Past Medical History Diagnosis Date ??? MIXED HYPERLIPIDEMIA 1988 Statin; Pravachol; Low HDL ??? PERS HX OF BREAST MALIGNANCY 1997 Mastectomy and chemotherapy; Recurrence 2001; Chemo and radiation; Tamoxifen, now Arimedex; followed at [facility] ??? ASCVD 1988 PTCA ??? OSTEOPOROSIS NOS [...] Procedure Name Priority Date/Time Associated Diagnosis Comme [facility] ORTHOPEDIC MANAGER OF CORPORATE REFERRAL Routine 10/21/2006 Joint Pain- Shlder documented in this encounter Results CONSULT ORTHO MANAGER OF CORPORATE (10/21/2006) Narrative This result has an attachment that is no t available. Tiffany Leonard MD REFERRAL documented in this encounter Visit Diagnoses Diagnosis Other specified pre-operative examinatio n - Primary Unspecified congenital anomaly of eye Pain in joint, shoulder region Osteoporosis, unspecified documented in this encounter Care Teams Crusher Feeder Relationship Specialty Start Date End Date Tiffany Leonard MD PCP - General 04/16/01 05/23/21 documented as of this encounter
--- OUTSIDE RECORDS SUMMARY | 2022-02-03 08:06 | XMS_ITS | Encounter Summary ---
:1945 Author Organization [place] [facility] Address [address] [place] [address] Care Team Providers Name Role Phone Tiffany Leonard MD Primary Care Provider Reason for Visit Reason Comments Imm/Inj Encounter Details Date Type Department Care Team Description 12/31/2006 Allied Health/Nurse [facility] Imm/Inj Visit [place] [address] [place] [address] Social History Tobacco Use Types Packs/Day [...] to previous influenza vaccines? No Paralyzed by Guillain-Henderson syndrome? No Currently have moderate or severe [...] Primary documented in this encounter Care Teams Broom Man Relationship Specialty Start Date End Date Tiffany Leonard MD PCP - General 04/16/01 05/23/21 documented as of this encounter
--- OUTSIDE RECORDS SUMMARY | 2022-02-03 08:06 | XMS_ITS | Encounter Summary ---
:1945 Author Organization [facility] Address [address] [place] [address]. [place] [address] Care Team Providers Name Role Phone Tiffany Leonard MD Primary Care Provider [phone] Reason for Referral - Closed Specialty Diagnoses / Procedures Referred By Contact Refer red To Contact Diagnoses Unspecified [place] [address] [place] [address] Referral ID Status Reason Start Date Expiration Date Visits Requ ested Visits Authorized [id number] Closed 07/29/2006 03/01/2011 1 1 Reason for Visit Reason Comments Eye Problem c/o swelling in her eye lids and more so on the right side. Is now affecting her vision. In the evening is worse and difficulty seeing. Encounter Details Date Type Department Care Team Description 07/29/2006 Office Visit [facility] Tiffany Leonard PTOSIS OF EYELID NOS Clinic Darrian Marinelli MD (Primary Dx) [address] [address] [address] [place] [address] [address] [place] [address] Social History Tobacco Use Types Packs/Day [...] Body Mass Index 30.55 04/15/2006 10:45 AM KNIFE SHARPENER documented in this encounter Progress Notes Tiffany [...] Primary documented in this encounter Care Teams Punchboard Inserter Relationship Specialty Start Date End Date Tiffany Leonard MD PCP - General 04/16/01 05/23/21 documented as of this encounter
--- OUTSIDE RECORDS SUMMARY | 2022-02-03 08:06 | XMS_ITS | Encounter Summary ---
:1945 Author Organization [facility] Address [address] [place] [address]. [place] [address] Care Team Providers Name Role Phone Tiffany Leonard MD Primary Care Provider [phone] Reason for Visit Reason Onset Date Comments Imm/Inj 12/18/2008 Requesting pneumovax Encounter Details Date Type Department Care Team Description 12/18/2008 Telephone [facility] Tiffany Leonard Imm/Inj ( Requesting Clinic Darrian Marinelli MD pneumovax) [address] [address] [facility] [address] [place] [address] [place], [place] [phone] (Wo rk) [address] [phone] Social History Tobacco Use Types Packs/Day Years Used Date Smoking Tobacco: Former Cigarettes Quit : 05/14/1988 Alcohol Use Standard Drinks/Week Comments No 0 (1 standard drink = 0.6 oz pure alcoho l) Sex Assigned at Date Recorded Female 05/22/2021 3:03 PM CDT documented as of this encounter Miscellaneous Notes Telephone Encounter - Jayla Antoine - 01/09/2009 5:10 PM CST Pt did get pneumovax. LEVEL CLINICIAN Telephone Encounter - Jayla Antoine - 12/18/2008 [...] disease documented in this encounter Care Teams Fire Pilot Relationship Specialty Start Date End Date Tiffany Leonard MD PCP - General 04/16/01 05/23/21 documented as of this encounter
--- OUTSIDE RECORDS SUMMARY | 2022-02-03 08:06 | XMS_ITS | Encounter Summary ---
:1945 Author Organization [facility] Address [address] [place] [address] Care Team Providers Name Role Phone Tiffany Leonard MD Primary Care Provider [phone] Encounter Details Date Type Department Care Team Description 09/27/2006 Results Only [facility] Preethi [place], [facility] Results [facility] [address] [place], [place] [address] (Wo rk) Social History [...] Procedure Name Priority Date/Time Associated Diagnosis Comme [facility] CHEST ONE VIEW Routine 09/27/2006 [...] on filedocumented in this encounter Care Teams Service Worker Helper Relationship Specialty Start Date End Date Tiffany Leonard MD PCP - General 04/16/01 05/23/21 documented as of this encounter
--- OUTSIDE RECORDS SUMMARY | 2022-02-03 08:06 | XMS_ITS | Encounter Summary ---
:1945 Author Organization [place] Address [address] [place] [address] Care Team Providers Name Role Phone Fernanda Fernandez MD Primary Care Provider [phone] Reason for Visit Reason Comments Physical Mammo 07/08 neg at [facility], pt is going to [place] in June & will have Mammo & Colon there at that time, PT IS FASTING Refill Request Pt needs refills Encounter Details Date Type Department Care Team Description 06/05[facility]2009 [facility] Rout[facility] G eneral Medical Examination at a Health Care Facility (Primary Dx); Clinic Tammy Marinelli MD Unspecified Cardiovascular Disease; [address] [address] [address] Unspecified Osteoporosis; [address] 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 Physical Mammo 07/[address] [facility], pt is going to [place] in June & will have Mammo & [...] no All Histories reviewed and updated in [facility]. ROS: C: NEGATIVE for fever, chills, change [...] colonosocpy- set to have exam done at [place] : NEGATIVE for unusual urinary or vaginal symptoms. M: NEGATIVE for significant arthralgias or myalgia Hem/Onc: past breast cancer; due for mammo- will have done at [place] [facility]: NEGATIVE for weakness, dizziness or paresthesias [...] A.M.A. COMPREHENSIVE MET.PANEL, HGB, HEMOGLOBIN A1C Comment: LSAT INSTRUCTOR exam including Pap and mammo scheduled to be done at [facility] per pt. 429.2 Unspecified Cardiovascular Disease [...] HX OF BREAST MALIGNANCY Plan: mammo- at [facility]; pt to request report sent to [facility]; right mastectomy several years ago. Comment: no longer on Arimedex; Dx 2001; will be release from [place]. 706.1AN Acne Plan: DIFFERIN 0.1 % EX [...] ASCVD but need PPI otherwise, cannot tolerate. [facility] has recommended name brand PPI 272.4CL [...] with: Physical - Mammo 07/[address] [facility], pt is going to [place] in June & will have Mammo & [...] Time Signature Creatinine 163 mg/dL [facility] Urine [facility]S Albumin Urine 67 mg/L [facility] mg/L [facility]S Albumin Urine 41.10 (H) 0 - 20 [facility] mg/g Cr mg/g Cr [facility] LABS Specimen Anatomical Collection Method Collection Time Receive d Time (Source) Location / / Volume Laterality 06/05/2009 10:33 06/05/2009 AM CDT 10:38 AM CDT Fernanda Fernandez MD LABORATORY Performing Organization Address City/State/ZIP Code Phon e Number [facility] [address] [place], [place] [id number] [place] [address] LABS (ABNORMAL) HEMOGLOBIN A1C (06/05/2009 10:32 AM CDT) P athologist Signature Hemoglobin A1C 7.9 (H) 4.3 - 6.0 [place] % [facility] Specimen Anatomical Collection Method Collection Time Receive d Time (Source) Location / / Volume Laterality 06/05/2009 10:32 06/05/2009 AM CDT 10:37 AM CDT Fernanda Fernandez MD LABORATORY Performing Organization Address City/[facility]/ZIP Code Phon e Number [facility] [address] [place], [place] [address] [facility] LAB HGB (06/05/2009 10:32 AM CDT) athologist Signature Hemoglobin 14.4 11.7 - 15.7 [place] g/dL [facility] LAB Specimen Anatomical Collection Method Collection Time Receive d Time (Source) Location / / Volume Laterality 06/05/2009 10:32 06/05/2009 AM CDT 10:37 AM CDT Fernanda Fernandez MD LABORATORY Performing Organization Address City/[facility] Code Phon e Number [facility] [address] [place], [place] [address] [facility] LAB (ABNORMAL) A.M.A. COMPREHENSIVE MET.PANEL (06/05/2009 10:32 AM CDT) athologist Signature Sodium 141 133 - 144 [place] mmol/L [facility] LAB Potassium 4.4 3.4 - 5.3 [place] mmol/L [facility] Chloride 101 94 - 109 [place] mmol/L [facility] Carbon Dioxide 30 20 - 32 [place] mmol/L [facility] Anion Gap 10 6 - 17 [place] mmol/L [facility] Glucose 145 (H) 60 - 99 [place] mg/dL [facility] Urea Nitrogen 12 7 - 30 [place] mg/dL [facility] Creatinine 0.65 0.52 - [facility] 1.04 mg/dL [facility] LAB Comment: New IDMS-traceable calibration beginning 07/01/07 GFR Estimate >90 >60 mL/min/1.7m2 [place] E [facility] GFR Estimate If Black >90 >60 mL/min/1.7m2 [facility] Calcium 9.2 8.5 - 10.4 mg/dL [facility] Bilirubin Total 0.6 0.2 - 1.3 mg/dL [facility] Albumin 4.2 3.3 - 4.9 g/dL [facility] Comment: Reference range changed on 11/01. Protein Total 7.7 6.8 - 8.8 g/dL [place] EA [facility] Comment: As of 07, reference range reflects plasma specimen type. Alkaline Phosphatase 76 40 - 150 U/L [facility] ALT 21 0 - 50 U/L [facility] LAB AST 31 0 - 45 U/L [facility] LAB Specimen Anatomical Collection Method Collection Time Receive d Time (Source) Location / / Volume Laterality 06/05/2009 10:32 06/05/2009 AM CDT 10:37 AM CDT Fernanda Fernandez MD LABORATORY Performing Organization Address City/[facility]/ZIP Code Phon e Number [facility] [address] [place] [address] [facility] LAB (ABNORMAL) LIPID PANEL, REFLEX TO DIRECT LDL (06/05/2009 10:32 AM CDT) athologist Signature Cholesterol 184 0 - 200 [facility] mg/dL CLINIC LAB Comment: LDL Cholesterol is the primary guide to therapy. The NCEP recommends further evaluation of: patients with cholesterol <200 mg/dL if additional risk factors are present, cholesterol >240 mg/dL, triglycerides >150 mg/dL, or HDL <40 mg/dL. Triglycerides 316 (H) 0 - 150 mg/dL [facility] LAB HDL Cholesterol 27 (L) 50 - 110 mg/dL [facility] LDL Cholesterol Calculated 94 0 - 129 mg/dL [facility] LAB Comment: LDL Cholesterol is the primary guide to therapy: LDL-cholesterol goal in high risk patients is <100 mg/dL and in very high risk patients is <70 mg/dL. VLDL-Cholesterol 63 (H) 0 - 30 mg/dL [facility] LAB Cholesterol/HDL Ratio 6.8 (H) 0.0 - 5.0 [facility] LAB Specimen Anatomical Collection Method Collection Time Receive d Time (Source) Location / / Volume Laterality 06/05/2009 10:32 06/05/2009 AM CDT 10:37 AM CDT Fernanda Fernandez MD LABORATORY Performing Organization Address City/[facility]/ZIP Code Phon e Number [facility] [address] [place] [address] [facility] LAB TSH W/FREE T4 REFLEX (06/05/2009 10:32 AM CDT) P athologist Signature TSH 1.17 0.4 - 5.0 [facility] mU/L CLINIC LAB Specimen Anatomical Collection Method Collection Time Receive d Time (Source) Location / / Volume Laterality 06/05/2009 10:32 06/05/2009 AM CDT 10:37 AM CDT Fernanda Fernandez MD LABORATORY Performing Organization Address City/State/ZIP Code Phon e Number [facility] [address] [place] [address] [facility] LAB (ABNORMAL) 25 HYDROXYVITAMIN D2 & D3 (06/05/2009 10:32 AM CDT) Component Value Ref Test Analysis Performed At [facility] gist Range Method Time Signature 25 [place] Vit D2 <5 ug/L [facility] LABS 25 OH Vit D3 24 ug/L [facility] LABS 25 [place] Vit D <29 30 - 75 [facility] total Season, race, dietary intake, and treatm ent affect the concentration of ug/L [facility] 53-imhqvfx-Jnanplx D. Values may decrease during ye er months and increase CAMPUS LABS during summer months. Values less than 30 ug/L may indicate Vitamin D deficiency. (L) Specimen Anatomical Collection Method Collection Time Receive d Time (Source) Location / / Volume Laterality 06/05/2009 10:32 06/05/2009 AM CDT 10:37 AM CDT Fernanda Fernandez MD LABORATORY Performing Organization Address City/State/ZIP Code Phon e Number [facility] [address] [place] [address] [facility] LABS A THIN LAYER PAP SCREEN (06/05/2009 12:00 AM CDT) Component Value Ref Test Analysis Performed At [facility] gist Range Method Time Signature PAP NIL COPATH Copath Report COPATH Patient Name: ORLIN NUNEZ MR#: [id number] Specimen #: [id number] Collected: 06/05/2009 Received: 06/06/2009 Reported: 06/07/2009 14:26 [...] TOMMY Cain (ASCP) Processed and screened at [facility] CLINICAL HISTORY: Post Menopausal Complete Hysterectomy, TESTING LAB LOCATION: [address] ??[address] COLLECTION SITE: Client: ??[facility] Location: [facility] (R) Specimen (Source) Anatomical Collection Method Collection [...] uncontrolled documented in this encounter Care Teams Diesel Power Mechanic Relationship Specialty Start Date End Date Fernanda Fernandez MD PCP - General 04/16/01 05/23/21 documented as of this encounter
--- OUTSIDE RECORDS SUMMARY | 2022-02-03 08:06 | XMS_ITS | Encounter Summary ---
:1945 Author Organization [place] Address [address] [place] [address] Care Team Providers Name Role Phone Tiffany Leonard MD Primary Care Provider [phone] Encounter Details Date Type Department Care Team Description 09/27/2006 [facility]Workers Compensation Adjuster[facility] Hospitalists MD Sarabjit [address] [facility] [address] [phone] [place] [address] 01 (Wo rk) Social History Tobacco Use [...] mg p.o. b.i.d. (dosed twice daily by [place] vacuum cleaner assembler). 4.Alendronate 70 mg p.o. q. week. New [...] workup. Electronically signed on 10/05/2006 15:11 by TRAVSI ARAIZA MD MT: varun Name: ORLIN NUNEZ Account: [id number] : 1945 Admit Date: [id number] Discharge Date: 2006 Document: [id number] cc: Tiffany Leonard MD documented in this encounter Plan of Treatment Not on filedocumented as of this encounter Visit Diagnoses Not on filedocumented in this encounter Care Teams Cottage Supervisor Relationship Specialty Start Date End Date Tiffany Leonard MD PCP - General 04/16/01 05/23/21 documented as of this encounter
--- OUTSIDE RECORDS SUMMARY | 2022-02-03 08:06 | XMS_ITS | Encounter Summary ---
:1945 Author Organization [facility] Address [address] [place] [address] Care Team Providers Name Role Phone Tiffany Leonard MD Primary Care Provider [phone] Reason for Visit Reason Comments Physical Mammo 07-06 and will after On cology appt in June normal Dexa 02-04-06 osteoporosis at [facility] Encounter Details Date Type Department Care Team Description 05/10/2007 Office Visit [facility] Tiffany Leonard ASCVD; Clinic Darrian Marinelli MD MIXED HYPERLIPIDEMIA; [address] [address] [address] IDIO PERIPH NEURPTHY NOS; JANIA Ponce OSTEOPOROSIS NOS; [address] [address] PERS HX OF BREAST MALIGNANCY [place], [place] [phone] [address] (Work) [phone] Social History Tobacco Use Types Packs/Day Years [...] [facility] of Present Illness: Mayra Quinn is a 61 year old female who [...] and radiation; Tamoxifen, now Arimedex; followed at [facility] ??? ASCVD 1988 [facility] ??? OSTEOPOROSIS NOS [...] Self Exams Yes breast cancer followed by [facility] Social History Narrative ??? No narrative on [...] to date Genitourinary: Previous hysterectomy; bladder OK WALL CRANE OPERATOR: PRevious hysterectomy and mastectomy; Musculoskeletal: negative Neurologic: [...] breast documented in this encounter Care Teams Mc Kay Stitcher Relationship Specialty Start Date End Date Tiffany Leonard MD PCP - General 04/16/01 05/23/21 documented as of this encounter
--- OUTSIDE RECORDS SUMMARY | 2022-02-03 08:06 | XMS_ITS | Encounter Summary ---
:1945 Author Organization [place] Address [address] [place] [address]. [place] [address] Care Team Providers Name Role Phone Tiffany Leonard MD Primary Care Provider [phone] Reason for Visit Reason Onset Date Comments Results 06/30/2008 lab results Encounter Details Date Type Department Care Team Description 06/16/2008 Telephone [facility] Tiffany Leonard Results ( lab results) Clinic Darrian Marinelli MD [address] [place] [address] [facility] [address] [place] [address] [place], [place] [phone] (Wo rk) [address] [phone] Social History Tobacco Use Types Packs/Day Years [...] a copy of results to take to [place] with her, so this nurse will send this out. She was advised that PCP would contact her with recommendations. documented in this encounter Plan of Treatment Not on filedocumented as of this encounter Visit Diagnoses Not on filedocumented in this encounter Care Teams Biomass Power Plant Superintendent Relationship Specialty Start Date End Date Tiffany Leonard MD PCP - General 04/16/01 05/23/21 documented as of this encounter
--- OUTSIDE RECORDS SUMMARY | 2022-02-03 08:06 | XMS_ITS | Encounter Summary ---
:1945 Author Organization [place] Address [address] [place] [address] Care Team Providers Name Role Phone Tiffany Leonard MD Primary Care Provider [phone] Encounter Details Date Type Department Care Team Description 09/27/2006 Emergency room Shaan Fraga MD EMERGENCY PHYSIC [place] [address] [place], [place] [address] (Wo rk) Social History [...] chest tightness is somewhat similar to her [facility] [place]. She does note over the last few weeks, having increasing episodes of chest tightness such as this often comes during the night. It sometimes comes during the day and not necessarily associated with activity. She has had some stress test since her [facility] in 1988 that have been normal but [...] placed on 2 liters O2 nasal cannula, manager monitoring. Blood was drawn and sent to lab. [...] and he will discuss that with the mobile lounge driver or operator and after he sees the patientwill make a decision. PLAN: Admit to [facility], Dr. Araiza. IMPRESSION: 1. Chest pain, rule out acute coronary syndrome. 2. Unstable angina. Electronically signed on 10/05/2006 08:37 by SHAAN FRAGA MD MT: ms Name: ORLIN NUNEZ Account: [id number] : 1945 Visit Date: 09/27/2006 Document: [id number] cc: Tiffany Leonard MD documented in this encounter Plan of Treatment Not on filedocumented as of this encounter Visit Diagnoses Not on filedocumented in this encounter Care Teams Wood Tool Maker Relationship Specialty Start Date End Date Tiffany Leonard MD PCP - General 04/16/01 05/23/21 documented as of this encounter
--- OUTSIDE RECORDS SUMMARY | 2022-02-03 08:06 | XMS_ITS | Encounter Summary ---
:1945 Author Organization [facility] Address [address] [place] [address] Care Team Providers Name Role Phone Tiffany Leonard MD Primary Care Provider [phone] Encounter Details Date Type Department Care Team Description 09/27/2006 Historic Results [facility] Hospitalists MD Sarabjit [address] [facility] [address] [phone] [place] [phone] (Wo rk) Social History Tobacco Use [...] LAB - BLOOD ORDERABLES Performing Organization Address City/[facility] Code Phon e Number [facility] Troponin I (09/27/2006 12:20 PM CDT) P athologist Signature Troponin I <0.04 0.00 - 0.40 [facility] ug/L Specimen Anatomical Collection Method Collection Time Receive d Time (Source) Location / / Volume Laterality 09/27/2006 12:20 09/27/2006 PM CDT 12:25 PM CDT Travis Araiza MD LAB - BLOOD ORDERABLES Performing Organization Address [facility] Code Phon e Number [facility] Troponin I (09/27/2006 6:25 AM CDT) P athologist Signature Troponin I <0.04 0.00 - 0.40 [place] ug/L Specimen Anatomical Collection Method Collection Time Receive d Time (Source) Location / / Volume Laterality 09/27/2006 6:25 AM 7 6:33 CDT AM CDT Preethi Kent MD LAB - BLOOD ORDERABLES Performing Organization Address [facility] Phon e Number [facility] Myoglobin (09/27/2006 6:25 AM CDT) P athologist Signature Myoglobin 27 <120 ug/L [facility] Specimen Anatomical Collection Method Collection Time Receive d Time (Source) Location / / Volume Laterality 09/27/2006 6:25 AM 7 6:33 CDT AM CDT Preethi Kent MD LAB - BLOOD ORDERABLES Performing Organization Address [facility] Phon e Number [facility] Hemogram and platelet [...] LAB - BLOOD ORDERABLES Performing Organization Address [facility] Phon e Number [facility] (ABNORMAL) Basic metabolic [...] LAB - BLOOD ORDERABLES Performing Organization Address [facility] Phon e Number [facility] Hepatic panel (09/27/2006 [...] LAB - BLOOD ORDERABLES Performing Organization Address [facility] Phon e Number [facility] Lipase (09/27/2006 6:25 AM CDT) athologist Signature Lipase 164 20 - 250 U/L [facility] Specimen Anatomical Collection Method Collection Time Receive d Time (Source) Location / / Volume Laterality 09/27/2006 6:25 AM 7 7:04 CDT AM CDT Preethi Kent MD LAB - BLOOD ORDERABLES Performing Organization Address City/[facility] Phon e Number [facility] documented in this encounter Visit Diagnoses Not on filedocumented in this encounter Care Teams Bottom Bleacher Relationship Specialty Start Date End Date Tiffany Leonard MD PCP - General 04/16/01 05/23/21 documented as of this encounter
--- OUTSIDE RECORDS SUMMARY | 2022-02-03 08:06 | XMS_ITS | Encounter Summary ---
:1945 Author Organization [place] Address [address] [place] [address] Care Team Providers Name Role Phone Tiffany Leonard MD Primary Care Provider [phone] Encounter Details Date Type Department Care Team Description 07/05/2008 Orders Only [facility] Tiffany Leonard DIAGNOSIS NOT YET Clinic Darrian Marinelli MD DEFINED (Primary Dx) [address] [address] [place] [address] [address] [place] [address] Social History Tobacco Use Types [...] Procedure Name Priority Date/Time Associated Diagnosis Comme [facility] DEXA BONE DENSITY, >=1 Routine 07/05/2008 DIAGNOSIS NOT Y ET DEFINED SITE, AXIAL SKELETON documented in this encounter Results DEXA,BONE DENSITY,AXIAL SKELETON (07/05/2008) Anatomical Region Laterality Modality Other Narrative This result has an attachment that is no t available. Tiffany Leonard MD SPECIAL IMAGING STUDIES documented in this encounter Visit Diagnoses Diagnosis DIAGNOSIS NOT YET DEFINED - Primary documented in this encounter Care Teams Erp Analyst Relationship Specialty Start Date End Date Tiffany Leonard MD PCP - General 04/16/01 documented as of this encounter
--- OUTSIDE RECORDS SUMMARY | 2022-02-03 08:06 | XMS_ITS | Encounter Summary ---
:1945 Author Organization [place] Address [address] [place] [address] Care Team Providers Name Role Phone Tiffany Leonard MD Primary Care Provider [phone] Reason for Visit Reason Comments Cough c/o cough and congestion wit h sore throat for the past 3 weeks. Elevated temp. Was sick for several weeks a nd then getting better and but now increased cough and not feeling well. Encounter Details Date Type Department Care Team Description 08/10/[address] [facility] Tiffany Leonard Bronchiti s Acute Clinic Darrian Marinelli MD (Primary Dx) [address] [address] [place] [address] [address] [place] [address] Social History Tobacco Use Types Packs/Day Years Used Date Smoking Tobacco: Former Cigarettes Quit : 05/14/1988 Alcohol Use Standard Drinks/Week Comments No 0 (1 standard drink = 0.6 oz pure alcoho l) Sex Assigned at Date Recorded Female 05/22/2021 3:03 PM CDT documented as of this encounter Last Filed Vital Signs Vital Sign Reading Time Taken Comments Blood Pressure 114/62 08/10/2007 3:30 PM CDT Pulse 66 08/10/2007 3:30 PM CDT Temperature 36.8 ??C (98.3 ??F) 08/10/2007 3:30 PM CDT Respiratory Rate 20 08/10/2007 3:30 PM CDT Oxygen Saturation - - Inhaled Oxygen Concentration - - Weight 84.8 kg (187 lb) 08/10/2007 3:30 PM CDT Height - - Body Mass Index 31.36 05/10/2007 1:00 PM CDT documented in this encounter Progress Notes Tiffany Leonard - 08/10/2007 3:53 PM CDT Chief Complaint Patient presents with ??? Cough c/o cough and congestion with sore throat for the past 3 weeks. Elevated temp. Was sick for severalweeks and then getting better and but now increased cough and not feeling well. SUBJECTIVE: Mayra Quinn is a 61 year old female who complains of cough and congestion for pat 3 weeks. Was seen at [facility] for cancer follow up and a CXR was done ~3weeks ago and pt reports normal. Started to not feel well several days later. REports hx of laryngitis, fever, cough and sore throa; treated sy mptomatically and thought she was feeling better. Then seemed to feel worse. No hx of asthma, does not smoke. OBJECTIVE: BP 114/62 Pulse 66 Temp (Src) 98.3 ??F (36.8 ??C) (Oral) Resp 20 Wt 187 lb (84.823 kg) LMPHysterectomy She appears tired, vital signs are as noted by the nurse. Ears normal. Throat and pharynx normal. Neck supple. No adenopathy in the neck. Nose is congested; post nasal drip noted. Sinuses non tender. The chest is clear, without wheezes or rales. ASSESSMENT: Bronchitis and resolving Viral upper respiratory illness PLAN: Symptomatic therapy suggested: push fluids, rest, use acetaminophen, Mucinex as needed. Return office visit if symptoms persist or worsen and Take Zithromax as ordered. Call or return to clinic prn if these symptoms worsen or fail to improve as anticipated. ZITHROMAX Z-CAREY 250 MG OR TABS, MUCINEX MAXIMUM STRENGTH 1200 MG OR TB12 Tiffany Leonard MD electronically signed documented in this encounter Nursing Notes 08/10/2007 3:30 PM CDT >> MASSIEL Oliver Aug 10, 2007 3:37 PM Mayra Quinn presents for c/o cough and congestion for the past several weeks. Initial BP 114/62 Pulse 66 Resp 20 Wt 187 lb (84.823 kg) LMP Hysterectomy Estimated Body mass index is 31.36 kg/(m^2) as calculated from: Height of 5' 4.75 (1.645 m) as of 05/10/07 Weight of 187 lb (84.823 kg) as of this encounter. BP completed using cuff size: large documented in this encounter Plan of Treatment Not on filedocumented as of this encounter Visit Diagnoses Diagnosis Bronchitis acute - Primary Acute bronchitis documented in this encounter Care Teams Economics Department Chair Relationship Specialty Start Date End Date Tiffany Leonard MD PCP - General 04/16/01 05/23/21 documented as of this encounter
--- OUTSIDE RECORDS SUMMARY | 2022-02-03 08:06 | XMS_ITS | Encounter Summary ---
:1945 Author Organization [facility] Address [address] [place] [address] Care Team Providers Name Role Phone Tiffany Leonard MD Primary Care Provider [phone] Encounter Details Date Type Department Care Team Description 07/21/2007 Orders Only [facility] Tiffany Leonard DIAGNOSIS NOT YET Clinic Darrian Marinelli MD DEFINED (Primary Dx) [address] [address] [place] [address] [address] [place] [address] Social History Tobacco Use Types [...] Primary documented in this encounter Care Teams Endbander Relationship Specialty Start Date End Date Tiffany Leonard MD PCP - General 04/16/01 05/23/21 documented as of this encounter
--- OUTSIDE RECORDS SUMMARY | 2022-02-03 08:07 | XMS_ITS | Encounter Summary ---
:1945 Author Organization [place] Address [address] [place] [address] Care Team Providers Name Role Phone Tiffany Leonard MD Primary Care Provider [phone] Encounter Details Date Type Department Care Team Description 08/27/2004 Abstract [facility] Nadiya Johnson LABS FROM [facility] [address] [place] [address] Social History Tobacco Use [...] . documented in this encounter Results GLUCOSE [30016.005] (09/26/2004) athologist Signature Glucose 109@ mg/dL [facility] Nadiya Grob LABORATORY Performing Organization Address City/State/ZIP Code Phon e Number [facility] TRIGLYCERIDES [93528.000] (08/27/2004) P athologist Signature Triglycerides 260@ mg/dL [facility] LABORATORY Performing Organization Address City/State/ZIP Code Phon e Number [facility] HDL CHOLESTEROL [78702.000] (08/27/2004) athologist Signature HDL Cholesterol 37@ mg/dL [facility] Nadiya Alex LABORATORY Performing Organization Address [facility] Phon e Number [facility] LDL-CHOLESTEROL [19505.001] (08/27/2004) P athologist Signature LDL Cholesterol 101@ mg/dL [facility] Calculated Nadiya Alex LABORATORY Performing Organization Address [facility] Phon e Number [facility] CHOLESTEROL [70948.000] (08/27/2004) P athologist Signature Cholesterol 190@ 115 - 199 [facility] mg/dL Nadiya Alex LABORATORY Performing Organization Address [facility] Phon e Number [facility] AST [14367.000] (08/27/2004) P athologist Signature AST 20@ U/L [facility] Nadiya Alex LABORATORY Performing Organization Address [facility] Phon e Number [facility] CREATININE [71111.000] (08/27/2004) P athologist Signature Creatinine 0.8@ mg/dL [facility] Nadiya Alex LABORATORY Performing Organization Address [facility] Phon e Number [facility] POTASSIUM [59498.001] (08/27/2004) P athologist Signature Potassium 4.2@ mmol/L [facility] Nadiya Alex LABORATORY Performing Organization Address [facility] Phon e Number [facility] CREATININE [05285.000] (08/25/2003) P athologist Signature Creatinine 0.8@ mg/dL [facility] Nadiya Alex LABORATORY Performing Organization Address City/[facility]/ZIP Code Phon e Number [facility] GLUCOSE [44435.005] (08/25/2003) P athologist Signature Glucose 97@ mg/dL [facility] Nadiya Alex LABORATORY Performing Organization Address [facility]/ZIP [facility] Phon e Number MISYS POTASSIUM [42116.001] (08/25/2003) P athologist Signature Potassium 3.9@ mmol/L [facility] Nadiya Alex LABORATORY Performing Organization Address [facility]/ZIP Code Phon e Number [facility]IS[facility] AST [20496.000] (08/25/2003) P athologist Signature AST 19@ U/L [facility] Nadiya Alex LABORATORY Performing Organization Address [facility] Code Phon e Number [facility] CHOLESTEROL [66872.000] (08/23/2002) P athologist Signature Cholesterol 186@ 115 - 199 [facility] mg/dL Nadiya Alex LABORATORY Performing Organization Address [facility]/ZIP Code Phon e Number [facility] LDL-CHOLESTEROL [47263.001] (08/23/2002) P athologist Signature LDL Cholesterol 110@ mg/dL [facility] Calculated Nadiya Alex LABORATORY Performing Organization Address [facility] Phon e Number [facility] TRIGLYCERIDES [58394.000] (08/23/2002) P athologist Signature Triglycerides 212@ mg/dL [facility] Nadiya Alex LABORATORY Performing Organization Address [facility] Phon e Number [facility] CREATININE [88593.000] (08/23/2002) P athologist Signature Creatinine 0.9@ mg/dL [facility] Nadiya Alex LABORATORY Performing Organization Address [facility] Code Phon e Number MISYS AST [79262.000] (08/23/2002) P athologist Signature AST 20@ U/L [facility] Nadiya Alex LABORATORY Performing Organization Address City/[facility]/ZIP Code Phon e Number [facility] POTASSIUM [23702.001] (08/23/2002) P athologist Signature Potassium 4.0@ mmol/L [facility] Nadiya Alex LABORATORY Performing Organization Address [facility]/ZIP Code Phon e Number [facility] CREATININE [51733.000] (08/12/2002) P athologist Signature Creatinine 0.8@ mg/dL [facility] Nadiya Alex LABORATORY Performing Organization Address City/State/ZIP Code Phon e Number [facility] GLUCOSE [37608.005] (08/12/2002) P athologist Signature Glucose 107@ mg/dL [facility] Nadiya Alex LABORATORY Performing Organization Address City/State/ZIP Code Phon e Number [facility] POTASSIUM [98646.001] (08/12/2002) P athologist Signature Potassium 4.4@ mmol/L [facility] Nadiya Alex LABORATORY Performing Organization Address City/State/ZIP Code Phon e Number [facility] documented in this encounter Visit Diagnoses Diagnosis DIAGNOSIS NOT YET DEFINED - Primary documented in this encounter Care Teams Captain Fishing Vessel Relationship Specialty Start Date End Date Tiffany Leonard MD PCP - General 04/16/01 05/23/21 documented as of this encounter
--- OUTSIDE RECORDS SUMMARY | 2022-02-03 08:07 | XMS_ITS | Encounter Summary ---
:1945 Author Organization [place] Address [address] [place] [address] Care Team Providers Name Role Phone Fernanda Fernandez MD Primary Care Provider [phone] Reason for Visit Reason Comments Physical PT FASTING Mammo followed [facility] oncology. Encounter Details Date Type Department Care Team Description 04/15/2006 Office Visit [facility] Fernanda Fernandez ROUTINE M EDICAL EXAM (Primary Dx); Clinic [place] Marinelli MD IDIO PERIPH NEURPTHY NOS; [address] [address] [address] MIXED HYPERLIPIDEMIA; [place] [address] [address] [place] [address] Social History Tobacco Use Types [...] Comments Blood Pressure 124/68 04/15/2006 10:45 AM STUDENT SPECIALIST Pulse 76 04/15/2006 10:45 AM STUDENT SPECIALIST Temperature - - Respiratory Rate 18 04/15/2006 10:45 AM STUDENT SPECIALIST Oxygen Saturation - - Inhaled Oxygen Concentration - - Weight 83.9 kg (185 lb) 04/15/2006 10:45 AM STUDENT SPECIALIST Height 165.7 cm (5' 5.25) 04/15/2006 10:45 AM STUDENT SPECIALIST Body Mass Index 30.55 04/15/2006 10:45 AM STUDENT SPECIALIST documented in this encounter Progress Notes Fernanda Fernandez - 04/15/2006 12:33 PM STUDENT SPECIALIST Addended by: FERNANDA FERNANDEZ on: 04/15/2006 12:33:48 PM Modules accepted: Orders ENT SPECIALIST Shante Osorio - 04/15/2006 11:48 AM STUDENT SPECIALIST Addended by: SHANTE OSORIO on: 04/15/2006 11:48:50 AM Modules accepted: Orders, Medications ENT SPECIALIST Malu Monson - 04/15/2006 11:43 AM STUDENT SPECIALIST Addended by: MALU MONSON on: 04/15/2006 11:43:30 AM Modules accepted: Orders ENT SPECIALIST Fernanda Fernandez - 04/15/2006 11:14 AM CST Chief Complaint: physical History of Present Illness: Mayra Quinn is a 60 year old female who presents for physical exam. No LMP date recorded. Reason: Hysterectomy., Dexa: 2006- Osteoporosis; on Fosamax, Mammo: [facility], colon screenin per pt. There is no family hx of Breast or Colon Cancer. Tetanus: 2006 Also here to follow up on Cholesterol, HTN and heart disease. Past Medical History Diagnosis Date ??? MIXED HYPERLIPIDEMIA Statin; Pravachol; Low HDL ??? PERS HX OF BREAST MALIGNANCY 1998 Mastectomy and chemotherapy; Recurrence 2001; Chemo and radiation; Tamoxifen, now Arimedex; followed at [facility] ??? ASCVD 1989 PTCA ??? OSTEOPOROSIS NOS [...] with Dr. Isidra sheppard most recently at [facility].; cough- heartburn related; now on PPI. 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 ENT SPECIALIST documented in this encounter Nursing Notes 04/15/2006 [...] Mixed Hyperlipidemi a Results for this AM STUDENT SPECIALIST procedure are i n the results section. HCL UA MICRO IF Routine 04/15/2006 11:38 Routine Medical Exam Results for this POSITIVE AM STUDENT SPECIALIST Mixed Hyperlipidemia procedu re are in the results section. HCL ALBUMIN URINE Routine 04/15/2006 11:38 Mixed Hyperlipidemi a Results for this (INC CREAT) AM STUDENT SPECIALIST procedure are i n the results section. CL AFF MICRO Routine 04/15/2006 11:38 Results for this EXAM-URINE AM STUDENT SPECIALIST procedure are i n the results section. HCL HEMOGLOBIN NONLAB Routine 04/15/2006 11:33 Routine Medical Exam Results for this AM STUDENT SPECIALIST procedure are i n the results section. HCL COMPREHENSIVE Routine 04/15/2006 11:33 Routine Medic al Exam Results for this METABOLIC PANEL AM STUDENT SPECIALIST Mixed Hyperlipid emia procedure are in Asc[facility] the results section. HCL TSH W/FREE T4 Routine 04/15/2006 11:33 Routine Medic al Exam Results for this REFLEX AM STUDENT SPECIALIST Mixed Hyperlipidemia procedu re are in the results section. CL AFF A.M.A. LIPID Routine 04/15/2006 11:33 Routine Med ical Exam Results for this PANEL AM STUDENT SPECIALIST Mixed Hyperlipidemia procedu re are in the results section. documented in this encounter Results (ABNORMAL) MICRO EXAM-URINE (04/15/2006 11:38 AM STUDENT SPECIALIST) athologist Signature WBC Urine O - 2 0 - 2 /HPF [facility] RBC Urine O - 2 0 - 2 /HPF [facility] Squamous EPI Few FEW /LPF [facility] Bacteria Urine Few (A) NEG /HPF [facility] Specimen Anatomical Collection Method Collection Time Receive d Time (Source) Location / / Volume Laterality 04/15/2006 11:38 04/15/2006 AM STUDENT SPECIALIST 11:43 AM STUDENT SPECIALIST Fernanda Fernandez MD LABORATORY Performing Organization Address City/State/ZIP Code Phon e Number [facility] [address] [place], [place] [address] [address] [facility] CREATININE, URINE (04/15/2006 11:38 AM STUDENT SPECIALIST) athologist Signature Creatinine 118 mg/dL [facility] Urine [place] [facility] Specimen Anatomical Collection Method Collection Time Receive d Time (Source) Location / / Volume Laterality 04/15/2006 11:38 04/15/2006 AM STUDENT SPECIALIST 11:43 AM STUDENT SPECIALIST Fernanda Fernandez MD LABORATORY Performing Organization Address City/State/ZIP Code Phon e Number [address] LABS (ABNORMAL) MICROALBUMIN (INC URINE CREAT) (04/15/2006 11:38 AM STUDENT SPECIALIST) [facility] gist Method Time Signature Albumin Urine 50 mg/L [facility] mg/L [facility] LABS Albumin Urine 42.63 (H) 0 - 20 [facility] mg/g Cr mg/g Cr [facility] LABS Specimen Anatomical Collection Method Collection Time Receive d Time (Source) Location / / Volume Laterality 04/15/2006 11:38 04/15/2006 AM STUDENT SPECIALIST 11:43 AM STUDENT SPECIALIST Fernanda Fernandez MD LABORATORY Performing Organization Address City/State/ZIP Code Phon e Number [address] LABS (ABNORMAL) UA MICRO IF POSITIVE (04/15/2006 11:38 AM STUDENT SPECIALIST) Patholo gist Method Time Signature Color Urine Yellow [facility] Appearance Urine Clear [facility] Glucose Urine Negative NEG mg/dL [facility] Bilirubin Urine Negative NEG [facility] Ketones Urine Negative NEG mg/dL [facility] Specific [place] 1.020 1.003 - [place] Urine 1.035 [facility] Blood Urine Trace (A) NEG [facility] pH Urine 7.5 (H) 5.0 - 7.0 [place] pH [facility] Protein Albumin Trace (A) NEG mg/dL [place] Urine [facility] Urobilinogen 0.2 0.2 - 1.0 [place] Urine EU/dL [facility] Nitrite Urine Negative NEG [facility] Leukocyte Trace (A) NEG [place] Esterase Urine [facility] Source [facility] Specimen Anatomical Collection Method Collection Time Receive d Time (Source) Location / / Volume Laterality 04/15/2006 11:38 04/15/2006 AM STUDENT SPECIALIST 11:43 AM STUDENT SPECIALIST Fernanda Fernandez MD LABORATORY Performing Organization Address City/State/ZIP Code Phon e Number [facility] [address], [place] [address] [address] [facility] TSH W/FREE T4 REFLEX (04/15/2006 11:33 AM STUDENT SPECIALIST) P athologist Signature TSH 1.27 0.4 - 5.0 [place] [facility] mU/L [facility] Specimen Anatomical Collection Method Collection Time Receive d Time (Source) Location / / Volume Laterality 04/15/2006 11:33 04/15/2006 AM STUDENT SPECIALIST 11:38 AM STUDENT SPECIALIST Fernanda Fernandez MD LABORATORY Performing Organization Address City/State/ZIP Code Phon e Number [facility] [address] [place] [address] [facility] HGB (04/15/2006 11:33 AM STUDENT SPECIALIST) P athologist Signature Hemoglobin 14.4 11.7 - 15.[address] [facility] g/dL [facility] Specimen Anatomical Collection Method Collection Time Receive d Time (Source) Location / / Volume Laterality 04/15/2006 11:33 04/15/2006 AM STUDENT SPECIALIST 11:38 AM STUDENT SPECIALIST Fernanda Fernandez MD LABORATORY Performing Organization Address City/State/ZIP Code Phon e Number [facility] [address] [place], [place] [address] [address] [facility] A.M.A. COMPREHENSIVE MET.PANEL (04/15/2006 11:33 AM STUDENT SPECIALIST) athologist Signature Sodium 141 133 - 144 [place] [facility] mmol/L [facility] Potassium 4.1 3.4 - 5.3 [place] [facility] mmol/L [facility] Chloride 102 94 - 109 [place] [facility] mmol/L [facility] Carbon Dioxide 26 20 - 32 [place] [facility] mmol/L [facility] Anion Gap 13 6 - 17 [place] [facility] mmol/L [facility] Glucose 110 60 - 110 [place] [facility] mg/dL [facility] Urea Nitrogen 18 7 - 30 [place] [facility] mg/dL [facility] Creatinine 0.70 0.60 - [place] [facility] 1.30 mg/dL [facility] GFR Estimate >90 >60 [place] [facility] mL/min/1.7 [facility] m2 GFR Estimate If >90 >60 [place] [facility] Black mL/min/1.7 [facility] m2 Calcium 9.6 8.5 - 10.4 [place] [facility] mg/dL [facility] Bilirubin Total 0.3 0.2 - 1.3 [place] [facility] mg/dL [facility] Albumin 4.3 3.2 - 4.5 [place] [facility] g/dL [facility] Protein Total 7.5 6.0 - 8.2 [place] [facility] g/dL [facility] Alkaline 96 40 - 150 [facility] Phosph[facility] U/L [facility] ALT 33 0 - 50 U/L [facility] AST 24 0 - 45 U/L [facility] Specimen Anatomical Collection Method Collection Time Receive d Time (Source) Location / / Volume Laterality 04/15/2006 11:33 04/15/2006 AM STUDENT SPECIALIST 11:38 AM STUDENT SPECIALIST Fernanda Fernandez MD LABORATORY Performing Organization Address City/State/ZIP Code Phon e Number [facility] [address] [place] [address] [facility] (ABNORMAL) A.M.A. LIPID PANEL (04/15/2006 11:33 AM STUDENT SPECIALIST) athologist Signature Cholesterol 163 0 - 200 [facility] mg/dL CLINIC LAB Comment: LDL Cholesterol [...] Triglycerides 248 (H) 0 - 150 mg/dL [facility] HDL Cholesterol 26 (L) 50 - 110 mg/dL [facility] LDL Cholesterol Calculated 88 0 - 129 mg/dL [facility] Comment: LDL Cholesterol is the primary guide to therapy: LDL-cholesterol goal in high risk patients is <100 mg/dL and in very high risk patients is <70 mg/dL. VLDL-Cholesterol 50 (H) 0 - 30 mg/dL [facility] Cholesterol/HDL Ratio 6.2 (H) 0.0 - 5.0 [facility] Specimen Anatomical Collection Method Collection Time Receive d Time (Source) Location / / Volume Laterality 04/15/2006 11:33 04/15/2006 AM STUDENT SPECIALIST 11:38 AM STUDENT SPECIALIST Fernanda Fernandez MD LABORATORY Performing Organization Address City/State/ZIP Code Phon e Number [address] [address] [facility] documented in this encounter Visit Diagnoses Diagnosis Routine general medical examination at a health care facility - Primary Unspecified hereditary and idiopathic pe ripheral neuropathy Mixed hyperlipidemia Unspecified cardiovascular disease documented in this encounter Care Teams Reconstructive Dentist Relationship Specialty Start Date End Date Fernanda Fernandez MD PCP - General 04/16/01 05/23/21 documented as of this encounter
--- OUTSIDE RECORDS SUMMARY | 2022-02-03 08:07 | XMS_ITS | Encounter Summary ---
:1945 Author Organization [facility] Address [address] [place] [address] Care Team Providers Name Role Phone Tiffany Leonard MD Primary Care Provider [phone] Encounter Details Date Type Department Care Team Description 06/21/2003 Admission H&P Mj Hamlin MD (Dentist/Owner) [place] [address] Social History Tobacco Use Types Packs/Day Years [...] [id number] VIOLET HAMLIN MD MT: Document: [id number] [place], [place] Name: ORLIN NUNEZ HISTORY AND PHYSCIAL Page 2 of 2 LCN: RASHAWN DSC: [place], [place] Name: MR#: : Admit Date: ORLIN NUNEZ [id number] 1945 06/21/2003 Doctor: Mj HAMLIN MD HISTORY AND PHYSICAL Page 1 of 2 documented in this encounter Plan of Treatment Not on filedocumented as of this encounter Visit Diagnoses Not on filedocumented in this encounter Care Teams Waterproof Coating Machine Tender Relationship Specialty Start Date End Date Tiffany Leonard MD PCP - General 04/16/01 05/23/21 documented as of this encounter
--- OUTSIDE RECORDS SUMMARY | 2022-02-03 08:07 | XMS_ITS | Encounter Summary ---
:1945 Author Organization [facility] Address [address] [place] [address] Care Team Providers Name Role Phone Tiffany Leonard MD Primary Care Provider [phone] Reason for Visit Reason Comments Cough has had a cough for the past 5 weeks but feels it is improving some. Establish Care Dr. Garcia in [place] and [place]. Encounter Details Date Type Department Care Team Description 11/13/2005 Office Visit [facility] Tiffany Leonard COUGH; Clinic [place]rian Marinelli MD MIXED HYPERLIPIDEMIA; [address] [address] CIMARR[address] A VE [facility] O[facility]OS; [address] [address] PERS HX OF BREAST MALIGNANCY [place], [place] [phone] [address] (Work) [phone] Social History Tobacco Use Types Packs/Day Years [...] 60 year old female who presents to critical access hospital care. She is in need of cholesterol follow up and has concerns about voice, cough and thyroid. Past Medical History Diagnosis Date ??? MIXED HYPERLIPIDEMIA Statin; Pravachol; Low HDL ??? PERS HX OF BREAST MALIGNANCY 1997 Mastectomy and chemotherapy; Recurrence 2001; Chemo and radiation; Tamoxifen, now Arimedex; followed at [facility] ??? ASCVD 1988 PTCA ??? 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 documented in this encounter Visit Diagnoses Diagnosis Cough Mixed hyperlipidemia Unspecified cardiovascular disease Osteoporosis, unspecified Personal history of malignant neoplasm o f breast documented in this encounter Care Teams Conservation Officer Relationship Specialty Start Date End Date Tiffany Leonard MD PCP - General 04/16/01 05/23/21 documented as of this encounter
--- OUTSIDE RECORDS SUMMARY | 2022-02-03 08:07 | XMS_ITS | Encounter Summary ---
:1945 Author Organization [facility] Address [address] [place] [address] Care Team Providers Name Role Phone Tiffany Leonard MD Primary Care Provider [phone] Reason for Referral Specialty Diagnoses / Procedures Referred By Contact [place] [address] [place] [address] Referral ID Status Reason Start Date Expiration Date Visits Requ ested Visits Authorized APEUTIC DIETITIAN Encounter Details Date Type Department Care Team Description 08/27/2004 Orders Only [facility] Tiffany Leonard DIAGNOSIS NOT YET Clinic [place] Marinelli MD DEFINED (Primary Dx) [address] [address] [address] [address] [address] [place] [address] Social History Tobacco Use Types Packs/Day [...] Primary documented in this encounter Care Teams Manager Operations Research Relationship Specialty Start Date End Date Tiffany Leonard MD PCP - General 04/16/01 05/23/21 documented as of this encounter
--- OUTSIDE RECORDS SUMMARY | 2022-02-03 08:07 | XMS_ITS | Encounter Summary ---
:1945 Author Organization [facility] Address [address] [place] [address]. [place] [address] Care Team Providers Name Role Phone Tiffany Leonard MD Primary Care Provider [phone] Reason for Visit Reason Onset Date Comments Medication Request 01/09/2006 neurontin Encounter Details Date Type Department Care Team Description 01/09/2006 Telephone [facility] Tiffany Leonard Medicatio n Request Clinic [place] Marinelli MD (neurontin) [address] [address] [facility] [place] [address] [place], [place] [phone] (Wo rk) [address] [phone] Social History Tobacco Use Types Packs/Day Years [...] PM CST Discussed at appt. Rx Faxed HEATER OPERATOR Telephone Encounter - Johanna White - 01/09/2006 4:57 PM CST Pt calling; states she discussed possible rx for Neurontin for pain in feet. Declined rx at [facility], but would now like to try this, if possible. Please advise, thanks. HEATER OPERATOR documented in this encounter Plan of Treatment Not on filedocumented as of this encounter Visit Diagnoses Diagnosis Unspecified hereditary and idiopathic pe ripheral neuropathy - Primary documented in this encounter Care Teams Mail Handler Relationship Specialty Start Date End Date Tiffany Leonard MD PCP - General 04/16/01 05/23/21 documented as of this encounter
--- OUTSIDE RECORDS SUMMARY | 2022-02-03 08:07 | XMS_ITS | Encounter Summary ---
:1945 Author Organization [facility] Address [address] [place] [address] Care Team Providers Name Role Phone Tiffany Leonard MD Primary Care Provider [phone] Encounter Details Date Type Department Care Team Description 08/22/2002 Orders Only [facility] Tiffany Leonard DIAGNOSIS NOT YET Clinic [place] Marinelli MD DEFINED (Primary Dx) [address] [address] [place] [address] [address] [place] [address] Social History Tobacco Use Types [...] attachment that is no t available. Tiffany Lenoard MD PROCEDURES COLONOSCOPY (08/22/2002) Specimen (Source) Anatomical Location Collection Method / Collectio n Time Received Time / Laterality Volume 08/22/2002 Narrative This result has an attachment that is no t available. Tiffany Leonard MD PROCEDURES documented in this encounter Visit Diagnoses Diagnosis DIAGNOSIS NOT YET DEFINED - Primary documented in this encounter Care Teams Equipment Installation Professional Relationship Specialty Start Date End Date Tiffany Leonard MD PCP - General 04/16/01 05/23/21 documented as of this encounter
--- OUTSIDE RECORDS SUMMARY | 2022-02-03 08:07 | XMS_ITS | Encounter Summary ---
:1945 Author Organization [facility] Address [address] [place] [address] Care Team Providers Name Role Phone Tiffany Leonard MD Primary Care Provider [phone] Encounter Details Date Type Department Care Team Description 02/04/2006 Orders Only [facility] Tiffany Leonard DIAGNOSIS NOT YET Clinic Darrian Marinelli MD DEFINED (Primary Dx) [address] [address] [place] [address] [address] [place] [address] Social History Tobacco Use Types [...] Primary documented in this encounter Care Teams Navigation Officer Relationship Specialty Start Date End Date Tiffany Leonard MD PCP - General 04/16/01 05/23/21 documented as of this encounter
--- OUTSIDE RECORDS SUMMARY | 2022-02-03 08:07 | XMS_ITS | Encounter Summary ---
:1945 Author Organization [place] Address [address] [place] [address] Care Team Providers Name Role Phone Tiffany Leonard MD Primary Care Provider [phone] Reason for Referral Specialty Diagnoses / Procedures Referred By Contact [place] [address] [place] [address] Referral ID Status Reason Start Date Expiration Date Visits Requ ested Visits Authorized ROAD INSPECTOR Encounter Details Date Type Department Care Team Description 02/12/2006 Orders Only [facility] Tiffany Leonard DIAGNOSIS NOT YET Clinic Darrian Marinelli MD DEFINED (Primary Dx) [address] [address] [address] [address] [address] [place] [address] Social History Tobacco Use Types Packs/Day [...] Primary documented in this encounter Care Teams Compensation Coordinator Relationship Specialty Start Date End Date Tiffany Leonard MD PCP - General 04/16/01 05/23/21 documented as of this encounter
--- OUTSIDE RECORDS SUMMARY | 2022-02-03 08:07 | XMS_ITS | Clinical Summary ---
:1945 Author Organization [facility] [place] [address] Care Team Providers Name Role Phone Pcp, No Unavailable Unavailable Gumaro Powell MD Primary Care Provider [phone] Allergies Active Allergy Reactions Severity Noted Date Comments Latex 08/21/2004 Atorvastatin Other - Describe In 12/10/2015 Facial s welling Comment Field Lisinopril Cough 12/07/2015 Preservative Angioedema 12/07/2015 Saline Preserva tive Sulfa (Sulfonamide 08/21/2004 Antibiotics) Medications Medication Sig Dispensed Refills Start Date End Date Status lansoprazole Take 30 mg by 0 Act efra (PREVACID) 30 mg mouth once daily. capsule gabapentin 600 mg Take 1,200 mg by 0 Active Tb24 mouth at bedtime. ASPIRIN (ASPIR-81 Take 81 mg by 0 Active ORAL) mouth once daily. cevimeline (EVOXAC) Take 30 mg by 0 Active 30 mg capsule mouth [address] 1 tablet 1 Bottle 2 01/16/2017 Active (NITROSTAT) 0.4 mg under the tongue sublingual every 5 minutes if tabletIndications: needed for Chest Coronary artery Pain. disease, angina presence unspecified, unspecified vessel or lesion type, unspecified whether [place] or transplanted heart losartan (COZAAR) 25 Take 2 tablets by 180 tablet 3 12/11/2017 Active mg tabletIndications: mouth at bedtime. Essential hypertension, Coronary artery disease of [place] artery of [place] heart with stable angina pectoris (HC) atenolol (TENORMIN) Take 1 tablet by 90 tablet 3 12/11/2017 Active 25 mg mouth once daily. tabletIndications: Essential hypertension, Coronary artery disease of [place] artery of [place] heart with stable angina pectoris (HC) Blood Pressure monitor home blood 1 Device 0 07/22/2018 Active Monitor (BLOOD pressure 2-3 times PRESSURE per week; Goal BP KIT)Indications: HTN <130 / 80 mm Hg (hypertension) metFORMIN Take 2 tablets by 0 08/12/2018 A ctive (GLUCOPHAGE) 500 mg mouth once daily tablet with evening meal. Do not take until Thursday, August 15 Blood Pressure Take random blood 1 Device 0 10/06/2018 Active Monitor (BLOOD pressures 2-3 PRESSURE times per week, KIT)Indications: HTN goal to be (hypertension) consistently less than 130/80 rosuvastatin TAKE 1 TABLET AT 90 tablet 2 01/18/2019 Active (CRESTOR) 40 mg BEDTIME tabletIndications: Coronary artery disease, angina presence unspecified, unspecified vessel or lesion type, unspecified whether [place] or transplanted heart cholecalciferol Take 1 tablet by 0 10/11/2019 Active (VITAMIN D) 1,000 mouth once daily. unit tablet calcium Chew 1 Tablet by 0 08/31/2020 Ac tive carbonate-vitamin D3 mouth once daily. (Caltrate 600 plus D) 600 mg (1,500 mg)-800 unit chew Active Problems Problem Noted Date MULLER (dyspnea on exertion) 08/12/2018 Abnormal stress echocardiography 08/12/2018 Overview: - stress echo 07/30/18:Post stress, noman l left ventricular size, mildly decreased global systolic function with an estimated EF of 40 to 45%. Stage 2: Impost: Entire anterior septum, apical lateral segm ent, apical anterior segment, and apical inferior segment are abnormal. 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 Hyperlipidemia, unspecified 12/07/2015 Breast cancer 12/07/2015 Overview: She underwent mastectomy in 1997 without chemo, and in 2003 underwent radiation and chemo. Heart disease 12/07/2015 Overview: History of large IN in 1988, found to jeffries ve LAD lesion. Has a family history of Father with IN, and bother with IN in his 20's. - 12/15: s/p NAY mLAD using wire escalat ion CTA technique - 07/2018: widely patent stents Unstable angina 12/07/2015 Abnormal stress test ASHD (arteriosclerotic heart disease) Status post insertion of drug-eluting stent into left anterior descending (LAD) artery for coronary artery disease Abnormal stress echo Encounters Date Type Specialty Care Team Description 12/06/2021 Lab Requisition Zhen Galicia MD from Last 3 Months Family History Medical History Relation Name Comments Heart Disease Brother Heart Disease Father Relation Name Status Comments Brother Father Social History Tobacco Use Types Packs/Day Years Used Date Former Smoker 1 28 Smokeless Tobacco: Never Used Tobacco Cessation: Counseling Given: Yes Comments: smoked 28 yrs ago Alcohol Use Standard Drinks/Week Comments No 0 (1 standard drink = 0.6 oz pure alcoho l) Sex Assigned at Date Recorded Not on file Obstetrics History Last Filed Vital Signs Vital Sign Reading Time Taken Comments Blood Pressure 130/64 10/09/2021 1:45 PM CDT Pulse 56 10/09/2021 1:45 PM CDT Temperature 35.9 ??C (96.6 ??F) 08/12/2018 10:45 AM CDT Respiratory Rate 19 08/12/2018 10:45 AM CDT Oxygen Saturation 96% 10/09/2021 1:45 PM CDT Inhaled Oxygen Concentration - - Weight 64.4 kg (142 lb) 10/09/2021 1:45 PM CDT Height 165.1 cm (5' 5) 10/09/2021 1:45 PM CDT Body Mass Index 23.63 10/09/2021 1:45 PM CDT Plan of Treatment Health Maintenance Due Date Last Done Comments Pneumococcal series for age 65+ (1 09/29/1951 - PCV) Tdap 1956 Depression screening for age 12+ 1957 Hepatitis C screening for age 0709/29/1963 18-79 Tetanus booster 1965 Zoster (shingles) series for age 0709/29/1995 50+ (1 of 2) DEXA/DXA scan for age 65+ 2010 Medicare Wellness for age 65+ 2010 COVID-19 vaccine series (5 - 08/10/2021 06/15/2021, 021, Booster for Moderna series) 05/11/2020, Addition al history exists Influenza for age 65+ 10/31/2021 BMI (ht and wt on same day) for 10/09/2022 10/09/2021, 04/2020, age 18+ 10/11/2019, Additional history exists Procedures Procedure Name Priority Date/Time Associated Diagnosis Comme nts LAB TRACKING EVENT Routine 12/05/2021 2:45 PM CDT PATH TISSUE EXAM Routine 12/05/2021 2:45 PM Resul ts for this CDT procedure are i n the results section. from Last 3 Months Results LAB TRACKING EVENT (12/05/2021 2:45 PM CDT) Specimen Anatomical Collection Method Collection Time Receive d Time (Source) Location / / Volume Laterality Other (Other) Client Collect / 12/05/2021 2:45 PM 08/2021 4:49 Unknown CDT PM CDT Zhen Galicia MD LAB BILL ONLY Performing Organization Address City/State/ZIP Code Phon e Number [facility] [address] [place] [address] LABORATORY-CENTRAL 2000 LABORATORY PATH TISSUE EXAM (12/05/2021 2:45 PM CDT) Component Value Ref Test Analysis Performed At [facility] gist Range Method Time Signature Case Report Pathology Report ?Case: [id number] ? 12/10/2021 [facility] Authorizing Provider: ??Sreekanth dotson, Zhen Mas MD ?? Collected: ? 12/05/2021 1445 ? 6:39 AM CDT LABORAT ORY-CE Ordering Location: ? [facility] LAB ?Received: ?12/06/2021 1720 ? [facility] Pathologist: ? Danette Wilson MD ? LABORATORY Specimen: ?Nose ? Final A) SKIN, NOSE, BIOPSY: 12/10/2021 [facility] Electronically Diagnosis 1. Superficial aspect of benign squamous lined cyst, s ee comment 6:39 AM CDT LABORATORY-CE signed by 2. No malignancy seen in this sample NTRAL Danette Wilson MD o n 12/10/2021 at 6:39 AM Comment Deeper levels 12/10/2021 [facility] were examined 6:39 AM CDT LABORATORY-CE to rule out a NTRAL malignancy. LABORATORY Only the superficial aspect of the most benign squamous lined cyst is seen. Please correlate with the clinical findings. If suspicion for neoplasm persists, additional sampling may be informative. Clinical Atypical 12/10/2021 [facility] Information lesion 6:39 AM CDT LABORATORY-CE NTRAL LABORATORY Gross A) Received in formalin, lab eled with the patient's name and left nasolabial fold, is a 0.4 x 0.3 cm skin biopsy. The skin surface is smooth and an obvious lesion is not identified. ??The specimen is 12/10/2021 [facility] Description inked blue, bisected and entirely submitted in one yana sette. 6:39 AM CDT LABORATORY-CE NTRAL SSS 12/06/2021 LABORATORY Microscopic The final 12/10/2021 [facility] Description diagnosis is 6:39 AM CDT LABORATORY-CE based on NTRAL microscopic LABORATORY examination of appropriate sections of all specimens. Additional 12/10/2021 [facility] Information Interpreted at [facility] - [address], [place] [address] 6:39 AM CDT LABORATORY-CE NTRAL LABORATORY Specimen Anatomical Collection Method Collection Time Receive d Time (Source) Location / / Volume Laterality Other SPECIMEN FROM NOSE 12/05/2021 2:45 PM 08/2021 5:20 / Unknown CDT PM CDT Zhen Galicia MD PATHOLOGY/CYTOLOGY Performing Organization Address City/State/ZIP Code Phon e Number [facility] [address] [place] [address] LABORATORY-CENTRAL 2000 LABORATORY from Last 3 Months Insurance Payer Benefit Plan / Subscriber ID Effective Dates Phone Addre ss Type Group MEDICARE PART B MEDICARE PART B [id number] 2010-Present ATTN: CLAIMS - HB USE ONLY HB ONLY [address] [place] [address] MEDICARE PART A MEDICARE PART A [id number] 2010-Present ATTN: CLAIMS - HB USE ONLY HB ONLY [address] [place] [address] MEDICARE - PB MEDICARE PB [id number] 2010-Present ATT N: CLAIMS USE ONLY ONLY [address] [place] [address] FOR [id number] 2005-Present [address] [place] [address] (Home) [place] [address] Advance Directives Latest Code Status on File Code Status Date Activated Date Inactivated Comments Full Code 08/12/2018 8:28 AM 08/12/2018 1:21 PM Full Code 12/09/2015 8:36 AM 12/11/2015 3:29 PM Full Code 12/07/2015 9:43 PM 12/09/2015 8:36 AM Code Status Discussion: Discussed Care Teams Stockroom Clerk Relationship Specialty Start Date End Date Gumaro Powell MD PCP - General Family Practice 12/28/15 [facility] [place] [address] Pcp, No 12/07/15 .
--- OUTSIDE RECORDS SUMMARY | 2022-02-03 08:07 | XMS_ITS | Encounter Summary ---
:1945 Author Organization [place] Address [address] [place] [address]. [place] [address] Care Team Providers Name Role Phone Tiffany Leonard MD Primary Care Provider [phone] Encounter Details Date Type Department Care Team Description 06/21/2003 Operative Report Misael Horton MD (Ergonomics Engineer) [facility] [id number] [place] [address] (Wo rk) Social History Tobacco Use Types [...] complications. [id number]_ MISAEL HORTON MD [place]: Document: [id number] [place], [place] Name: ORLIN NUNEZ NATIVIDADN: SDS DSC: 06/21/2003 [place], [place] Name: MR#: : Procedure Date: ORLIN NUNEZ [id number] 1945 06/21/2003 Doctor: MISAEL HORTON MD OPERATIVE REPORT Page 1 of 2 documented in this encounter Plan of Treatment Not on filedocumented as of this encounter Visit Diagnoses Not on filedocumented in this encounter Care Teams Decoration Checker Relationship Specialty Start Date End Date Tiffany Leonard MD PCP - General 04/16/01 05/23/21 documented as of this encounter
--- OUTSIDE RECORDS SUMMARY | 2022-02-03 08:07 | XMS_ITS ---
[...] Active ? Not yuval ilable Flublok Quad 6918-1219 (PF) 180 mcg (45 mcg x 4)/0.5 [...]
[2022-02-03 14:17] LABS: Albumin* 4.1 g/dL (3.3-5.0)
[2022-02-03 14:18] LABS: Chloride* 104 mmol/L (96-114); Potassium* 4.3 mmol/L (3.6-5.1); Sodium* 141 mmol/L (135-149)
[2022-02-03 14:20] LABS: Cholesterol* 131 mg/dL (90-199); Creatinine* 0.9 mg/dL (0.5-1.5); Estimated Glomerular Filt Rate 66 ml/min
[2022-02-03 14:21] LABS: Alanine Aminotransferase* 14 U/L (4-35); Alkaline Phosphatase* 65 U/L (40-150); Aspartate Amino Transferase* 25 U/L (12-35); Bilirubin Total* 0.6 mg/dL (0.1-1.5); Blood Urea Nitrogen* 16 mg/dL (7-30); Calcium* 9.9 mg/dL (8.4-10.6); Carbon Dioxide* 30 mmol/L (20-32); Glucose* 85 mg/dL (60-115); HDL Cholesterol* 46 mg/dL (>=50); LDL Cholesterol Calculated 54 mg/dL (<100); Total Protein* 6.7 g/dL (6.0-8.3); Triglycerides* 157 mg/dL (40-149)
== END 2022-02-03 14:04 | disposition home or self-care (01) ==
PROVIDERS: PCP Internal Medicine; Visit Provider Internal Medicine
DX: E11.9 Type 2 diabetes mellitus without complications (principal)
CPT/HCPCS: 80053; 80061

== ENCOUNTER 2022-02-06 19:51 | Emergency (ER) | payer MEDICARE, OTHER, SELFPAY ==
[2022-02-06 20:44] VITALS: BP 169/79; PULSE 66; RESP 16; TEMP 36.6; O2SAT 98; BMI 23.1
--- NOTE | 2022-02-06 21:23 | CRLHL7_ITS ---
For Patients: As a result of the 21st Century Cures Act, medical imaging exams and procedure reports are released immediately into your electronic medical record. You may view this report before your referring provider. If you have questions, please contact your health care provider. INDICATION: Chronic lymphedema, increased swelling. TECHNIQUE: Ultrasound venous duplex upper right extremity. Compression venous exam was performed using bain-scale, color Doppler, and spectral Doppler imaging. COMPARISON: 12/25/2021. FINDINGS: Deep veins: The visualized right internal jugular, subclavian, brachial, and axillary veins are fully compressible, demonstrate normal color flow, and normal response to mechanical augmentation. The Duplex Doppler waveforms are normal in appearance. Superficial veins: The visualized cephalic and basilic veins are unremarkable. Soft tissue: Small simple fluid collection about the right shoulder. IMPRESSION: No deep venous thrombosis within the evaluated veins of the right upper extremity. Small fluid collection about the right shoulder. This is incompletely evaluated but could represent bursitis. Recommend dedicated MSK ultrasound or shoulder MRI if there is persistent clinical concern. Dictated by Travis Hudson MD @ 02/06/2022 11:22:05 PM (Electronically Signed)
--- NOTE | 2022-02-06 21:24 | ED_ITS ---
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 She noted that her swelling is gotten worse in the last day, denies fever or chills. She has had this previously with cellulitis, no previous Street DVT. Two sees a wrap on the arm but she was having recurrent cellulitis it was thought to be secondary to the wrap brought being on the antecubital fossa and so she has not been using this for a while. She denies any nausea vomiting. No chest pain or shortness of breath. She has noted increased pain in the shoulder when she tries to move the arm. Related Data Home Medications Medication Instructions Recorded Confirmed cevimeline 30 mg capsule 1 cap PO TID 09/10/21 01/07/22 lansoprazole 30 mg capsule,delayed 30 mg PO QDAY 09/10/21 01/07/22 release rosuvastatin 40 mg tablet 40 mg PO QDAY 09/10/21 01/07/22 aspirin 81 mg tablet,delayed 81 mg PO QDAY 12/13/21 01/07/22 release Previous Rx's Medication Instructions Recorded gabapentin 600 mg tablet 600 mg PO BID #180 tabs 11/26/21 metformin 500 mg tablet 500 mg PO BID #180 tabs 11/26/21 doxycycline hyclate 100 mg capsule 100 mg PO BID #20 caps 01/07/22 atenolol 25 mg tablet 25 mg PO QDAY #90 tabs 01/31/22 losartan 25 mg tablet 25 mg PO BID #180 tabs 01/31/22 Allergies Allergy/AdvReac Type Severity Reaction Status Date / Time Sulfa (Sulfonamide Allergy Mild Hives Verified 01/07/22 13:30 Antibiotics) latex Allergy Unknown Verified 01/07/22 13:30 Review of Systems Status of ROS: Reports: 10 or more systems reviewed and unremarkable except as noted in History and below [facility] Medical History (Updated 02/06/22 @ 23:30 by Felix Jerry MD) History of upper gastrointestinal bleeding Surgical History (Updated 11/11/21 @ 16:37 by Radha Naidu MD) History of bunionectomy of both great toes History of cataract surgery History of hysterectomy History of mastectomy Social History Smoking Status: Former smoker Do you use any of these nicotine containing products: None Second hand tobacco smoke exposure: No How often do you have a drink containing alcohol: never AUDIT-C Alcohol total score: 0 Non-prescribed substance use: denies use service: No Exam Narrative: Exam Narrative: General: Well-developed and well-nourished, no acute distress Head: Atraumatic and normocephalic Eyes: Pupils are equal reactive, extraocular motions intact, conjunctiva clear ENT: External nose and ears are normal, posterior pharynx without erythema or exudate Neck: No midline cervical tenderness, full spontaneous range of motion the neck, trachea midline, no adenopathy Heart: Regular rate and rhythm no murmurs or thrills Lungs: Clear to auscultation bilaterally without wheezes or crackles Abdomen: Soft, nontender, nondistended with active bowel sounds Musculoskeletal: Moderate soft edema of the right forearm, elbow, and distal upper arm. No induration, mild pink discoloration on the extensor surface of the forearm but no ned erythema. Tenderness of the deltoid and anterior shoulder. Neurologic: Awake, alert, and oriented x3, no gross focal neurologic deficits, cranial nerves intact as tested Psych: Mood and affect are appropriate Skin: No rashes Const: Vital Signs, click to edit/add: Vital Signs - 24 hr 02/06/22 20:44 Temperature 98 F Pulse Rate [Pulse Oximeter] 66 Respiratory Rate 16 Blood Pressure [Le ft Upper Arm] 169/79 H Pulse Oximetry 98 Oxygen Delivery Me thod Room Air Course Course Hospital Course: Patient seen examined, prior records reviewed. Distant history of mastectomy with lymphedema of the right upper extremity related to this. Presents today with increased swelling of the arm. She has had cellulitis before but usually gets a fever with that, has not had a fever but she does have some pinkish discoloration of the extensor surface of the forearm. She has antibiotics at home that were previously prescribed for this problem that she will start taking when she gets home. Ultrasound is ordered to evaluate for DVT. No joint effusion or joint warmth, redness, or pain with passive movement, septic arthritis or crystal arthropathy unlikely. Pain in the right shoulder is musculoskeletal and secondary to increased weight from lymphedema. Patient will be given a sling to help with this. Reevaluation(s) Reevaluation #1: Labs demonstrate slight elevation in the CRP but normal white blood cell count. Ultrasound the right upper extremity does not demonstrate any DVT there is a small fluid collection of the right shoulder which could represent bursitis. Patient will be placed in a sling, follow up primary care. Time: 23:30 Vital Signs Vital signs: Initial Vital Signs Temperature 98 F 02/06/22 20:44 Temperature Source Temporal Artery Scan 02/06/22 20:44 Pulse Rate 66 02/06/22 20:44 Respiratory Rate 16 02/06/22 20:44 Blood Pressure 169/79 H 02/06/22 20:44 Blood Pressure Mean 109 02/06/22 20:44 Pulse Oximetry 98 02/06/22 20:44 Oxygen Delivery Method 02/06/22 20:44 Vital Signs Temperature 98 F 02/06/22 20:44 Pulse Rate 66 02/06/22 20:44 Respiratory Rate 16 02/06/22 20:44 Blood Pressure 169/79 H 02/06/22 20:44 Pulse Oximetry 98 02/06/22 20:44 Oxygen Delivery Method 02/06/22 20:44 Temperature 98 F 02/06/22 20:44 Pulse Rate 66 02/06/22 20:44 Respiratory Rate 16 02/06/22 20:44 Blood Pressure 169/79 H 02/06/22 20:44 Pulse Oximetry 98 02/06/22 20:44 Oxygen Delivery Method 02/06/22 20:44 Medical Decision Making Medical Records Medical records reviewed: Yes I reviewed the patient's medical records Lab Data Lab results reviewed: Yes I reviewed the patient's lab results Labs: Lab Results 02/06/22 02/06/22 Range/Units 21:39 21:39 WBC 6.80 (4.50-11.00) K/uL RBC 4.04 (4.00-5.20) m/uL Hgb 11.2 L (12.0-16.0) gm/dL Hct 35.1 (33.0-51.0) % MCV 87 (80-100) fL MCH 28 (26-34) pg MCHC 32 (32-36) gm/dL RDW Coeff of Angela 13.7 (11.5-15.5) % Plt Count 234 (140-440) K/uL Neut % (Auto) 65.5 (42.0-72.0) % Lymph % (Auto) 20.1 (20-44) % Payne % (Auto) 11.5 H (0.0-11.0) % Eos % (Auto) 2.4 (0.0-7.0) % Baso % (Auto) 0.4 (0.0-3.0) % Neut # (Auto) 4.45 (1.7-7.0) K/uL Lymph # (Auto) 1.37 (0.90-2.90) K/uL Payne # (Auto) 0.80 (0.00-0.90) K/UL Eos # (Auto) 0.16 (0.00-0.50) K/uL Baso # (Auto) 0.03 (0.00-0.30) K/uL Abs Immat Gran (auto) 0.01 (0.00-0.30) K/uL Imm/Tot Granulo (auto) 0.1 % C-Reactive Protein 1.2 H (0.5-1.0) mg/dL Discharge Plan Discharge Clinical Impression: Acute pain of right shoulder, 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 Ice the shoulder 15-20 minutes at a time every 2-3 hours while awake for 24 hours. Wear sling for comfort. Follow-up with your primary care doctor next week. Elevate the arm as much as possible to help with edema. Discharge Diet: Regular Prescriptions: No Action rosuvastatin 40 mg tablet 40 mg PO QDAY lansoprazole 30 mg capsule,delayed release(DR/EC) 30 mg PO QDAY cevimeline 30 mg capsule 1 cap PO TID aspirin 81 mg tablet,delayed release (DR/EC) 81 mg PO QDAY doxycycline hyclate 100 mg capsule 100 mg PO BID Qty: 20 3RF gabapentin 600 mg tablet 600 mg PO BID Qty: 180 0RF metformin 500 mg tablet 500 mg PO BID Qty: 180 0RF losartan 25 mg tablet 25 mg PO BID Qty: 180 1RF atenolol 25 mg tablet 25 mg PO QDAY Qty: 90 1RF Follow Up/Referrals: Radha Naidu MD [Primary Care Provider] - Stand Alone Forms: [employer] Info Instructions
--- OUTSIDE RECORDS SUMMARY | 2022-02-06 21:31 | XMS_ITS | Encounter Summary ---
:1945 Author Organization [facility] Address [address] [place] [address] Care Team Providers Name Role Phone Unavailable Primary Care Provider Unavailable Encounter Details Date Type Department Care Team Description 01/16/2022 Clinical Communication Department of Physical Depompol o, Medicine and King Paulino M.D. Rehabilitation in [address] [place] [address] [place] [phone] [place] [address] [phone] Social History Tobacco Use Types Packs/Day Years [...] or relatives? How often do you attend methodist or More than 4 times per year 07/24/2020 caodaism services? Do you belong to any clubs or Yes 07/24/2020 organizations such as methodist groups, unions, fraternal or athletic groups, or [...] - Madelaine Daily 01/16/2022 2:[address] Gamboa RPS Lymphedema for triage please Lymphedema Post Mastectomy nice letter of referral in doc viewer and records in doc viewer and care everywhere, Appreciate your taking the time to review Kendra PMR Appts Office REBUILDER documented in this encounter Plan of Treatment Upcoming Encounters Date Type Specialty Care Team Description 03/14/2022 Clinical Communication Admitting/Central Scheduling 03/18/2022 Lab Laboratory Medicine King Gamboa M.D. [address] [place] [phone] 03/18/2022 Comprehensive Visit Physical Medicine and Leandro Gamboa M.D. [address] [place] [phone] 03/18/2022 Comprehensive Visit Physical Medicine and King Jordan M.D. [address] [place] [phone] Rehabilitation Yazmin Zaragoza M.S., O.T., [facility] [address] [place] [phone] 03/18/2022 Comprehensive Visit Infectious Diseases King Gamboa M.D. [address] [place] [phone] 03/19/2022 Comprehensive Visit Physical Medicine and Leandro Gamboa M.D. [address] [place] [phone] documented as of this encounter Visit Diagnoses Not on filedocumented in this encounter
--- OUTSIDE RECORDS SUMMARY | 2022-02-06 21:31 | XMS_ITS | Encounter Summary ---
:1945 Author Organization [facility] Address [address] [place] [address] Care Team Providers Name Role Phone Unavailable Primary Care Provider Unavailable Reason for Referral Outpatient (Routine) - Authorized Specialty Diagnoses / Referred By Contact Referred To Contact Procedures Physical Medicine and King Gamboa Komal Paulino M.D. 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 [place] Komal Procedures PT or OT eval and treat (first available) [address] [place] [phone] Referral ID Status Reason Start Date Expiration Date Visits V isits Requested Authorized [id number] Authorized 02/03/2022 02/03/2023 99 99 RITHM DEVELOPER Outpatient (Routine) - Authorized Specialty Diagnoses / Procedures Referred By Contact Refer red To Contact Infectious Diseases Diagnoses Lymphedema Post Mastectomy King Gamboa [place] M.D. [address] [place] [phone] Referral ID Status Reason Start Expiration Visits Visits Date Date Requested Authorized [id number] Authorized Specialty 02/03/2022 02/03/2023 1 1 Services Required RITHM DEVELOPER Encounter Details Date Type Department Care Team Description 02/03/2022 Orders Only Department of Physical Bee, Lymph edema Post Mastectomy (Primary Dx); Medicine and King Paulino M.D. Edema; Rehabilitation in [address] [place] [address] Diabetes Mellitus Type 2 With Other Comp lication (HCC); [place], [place] Diabetes Mellitus Type 2 Wit hout Complication (HCC) [address] [place] [phone] [place] [address] [phone] Social History Tobacco Use Types Packs/Day Years [...] or relatives? How often do you attend jain or More than 4 times per year 07/24/2020 sikhism services? Do you belong to any clubs or Yes 07/24/2020 organizations such as jain groups, unions, fraternal or athletic groups, or [...] as of this encounter Plan of Treatment Upcoming Encounters Date Type Specialty Care Team Description 03/14/2022 Clinical Communication Admitting/Central Scheduling 03/18/2022 Lab Laboratory Medicine King Gamboa M.D. 200 [place] [phone] 03/18/2022 Comprehensive Visit Physical Medicine and Bee, Rehabilitation King Paulino M.D. [address] [place] [phone] 03/18/2022 Comprehensive Visit Physical Medicine and Depomp King gastelum M.D. [address] [place] [phone] Rehabilitation Yazmin Zaragoza M.S., O.T., [facility] [address] [place] [phone] 03/18/2022 Comprehensive Visit Infectious Diseases King Gamboa M.D. [address] [place] [address] [phone] 03/19/2022 Comprehensive Visit Physical Medicine and Depompolo, Rehabilitation King Paulino M.D. [address] [place] [address] [phone] Scheduled Orders Name Type Priority Associated Diagnoses [...]
--- OUTSIDE RECORDS SUMMARY | 2022-02-06 21:31 | XMS_ITS | Encounter Summary ---
:1945 Author Organization [facility] Address [address] [place] [address] Care Team Providers Name Role Phone Unavailable Primary Care Provider Unavailable Reason for Visit Appointment Request (Routine) - Closed Specialty Diagnoses / Procedures Referred By Contact Refer red To Contact Nephrology and Hypertension Referral ID Status Reason Start Date Expiration Date Visits Requ ested Visits Authorized [id number] Closed 08/01/2021 08/01/2022 1 Encounter Details Date Type Department Care Team Description 08/13/2021 External Outreach Division of [place], Hypertensi on And Chronic Kidney Disease Stage 1 (Primary Dx); Nephrology and King Buchanan Jr., Sjogren's (S icca) Syndrome (HCC); Hypertension in D.O. Proteinuria; [place], [place] [address] [facility] Hyperlipidemia [address] [place] [phone] Social History Tobacco Use Types Packs/Day Years [...] More than 4 times per year 07/24/2020 episcopal services? Do you belong to any clubs [...] Progress Notes King Garza Jr., D.O. - 08/13/2021 11:30 AM CDT Please see scanned in note under document viewer tab for the [facility] [place] outreach visit from this date. Medical Problems Diagnosis List Myocardial Infarction Old Overview Deleted 04/30/2017 11:31 AM by Conversion, Rst Problem List [id number] Hyperlipidemia Hypertension And Chronic Kidney Disease Stage 1 Cancer Breast Personal History Sjogren's (Sicca) Syndrome (HCC) Proteinuria documented in this encounter Plan of Treatment Upcoming Encounters Date Type Specialty Care Team Description 03/14/2022 Clinical Communication Admitting/Central Scheduling 03/18/2022 Lab Laboratory Medicine King Gamboa M.D. [address] [place] [phone] 03/18/2022 Comprehensive Visit Physical Medicine and Deppadmaja, Leandro Paulino M.D. [address] [place] [phone] 03/18/2022 Comprehensive Visit Physical Medicine and King Jordan M.D. [address] [place] [phone] Rehabilitation Yazmin Zaragoza M.S., O.T., [facility] [address] [place] [phone] 03/18/2022 Comprehensive Visit Infectious Diseases King Gamboa M.D. [address] [place] [phone] 03/19/2022 Comprehensive Visit Physical Medicine and Depompolo, Rehabilitation King Paulino M.D. [address] [place] [phone] documented as of this encounter Visit Diagnoses Diagnosis Hypertension And Chronic Kidney Disease Stage 1 - Primary Sjogren's (Sicca) Syndrome (HCC) Proteinuria Hyperlipidemia documented in this encounter
--- OUTSIDE RECORDS SUMMARY | 2022-02-06 21:31 | XMS_ITS | Encounter Summary ---
:1945 Author Organization [facility] Address [address] [place] [address] Care Team Providers Name Role Phone Unavailable Primary Care Provider Unavailable Reason for Visit Appointment Request (Routine) - Closed Specialty Diagnoses / Procedures Referred By Contact Refer red To Contact Nephrology and Hypertension Referral ID Status Reason Start Date Expiration Date Visits Requ ested Visits Authorized [id number] Closed 06/15/2020 06/15/2021 1 1 Encounter Details Date Type Department Care Team Description 08/01/2020 External Outreach Division of [place], Hypertensi on And Chronic Kidney Disease Stage 1 (Primary Dx); Nephrology and King Buchanan Jr., Proteinuria; Hypertension in D.O. Sjogren's (Sicca) Syndrome (HCC) [place], [place] [address] [facility] [address] [place] [phone] [phone] Social History Tobacco Use Types Packs/Day Years [...] under document viewer tab for the [facility] [place] outreach visit from this date. documented in this encounter Plan of Treatment Upcoming Encounters Date Type Specialty Care Team Description 03/14/2022 Clinical Communication Admitting/Central Scheduling 03/18/2022 Lab Laboratory Medicine King Gamboa M.D. [address] [place] [phone] 03/18/2022 Comprehensive Visit Physical Medicine and Depompnirav, Rehabilitation King Paulino M.D. [address] [place] [phone] 03/18/2022 Comprehensive Visit Physical Medicine and Depomp King gastelum M.D. [address] [place] [phone] Rehabilitation Yazmin Zaragoza M.S., O.T., [facility] [address] [place] [phone] 03/18/2022 Comprehensive Visit Infectious Diseases King Gamboa M.D. [address] [place] [phone] 03/19/2022 Comprehensive Visit Physical Medicine and Depompnirav, Rehabilitation King Paulino M.D. [address] [place] [phone] documented as of this encounter Visit Diagnoses Diagnosis Hypertension And Chronic Kidney Disease Stage 1 - Primary Proteinuria Sjogren's (Sicca) Syndrome (HCC) documented in this encounter
--- OUTSIDE RECORDS SUMMARY | 2022-02-06 21:31 | XMS_ITS | Encounter Summary ---
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 1999 [facility]) [place] [address] [phone] Social History Tobacco Use Types Packs/Day Years [...] More than 4 times per year 07/24/2020 nondenominational services? Do you belong to any clubs [...] or slept in a prison (including now)? Education Answer Date Recorded What [...] Lab Laboratory Medicine King Gamboa M.D. [address] [place] [phone] 03/18/2022 Comprehensive Visit Physical Medicine and Leandro Gamboa M.D. [address] [place] [phone] 03/18/2022 Comprehensive Visit Physical Medicine and King Jordan M.D. [address] [place] [phone] Rehabilitation Yazmin Zaragoza M.S., O.T., [facility] [address] [place] [phone] 03/18/2022 Comprehensive Visit Infectious Diseases King Gamboa M.D. [address] [place] [phone] 03/19/2022 Comprehensive Visit Physical Medicine and Leandro Gamboa M.D. [address] [place] [address] [phone] Scheduled Referrals Name Type Priority Associated Diagnoses Order [facility] Outpatient Referral Routine Lymphedema Post Expe cted: Referral Mastectomy 01/08/2022 (Approximate), Expires: 04/10/2023 documented as of this encounter Visit Diagnoses Diagnosis Lymphedema Post Mastectomy - Primary documented in this encounter
--- OUTSIDE RECORDS SUMMARY | 2022-02-06 21:31 | XMS_ITS | Encounter Summary ---
:1945 Author Organization [facility] Address [address] [place] [address] Care Team Providers Name Role Phone Unavailable Primary Care Provider Unavailable Reason for Visit Reason Comments Pre-visit Testing Orders L shldr pain Encounter Details Date Type Department Care Team Description 07/19/2020 Clinical Communication Department of Marg[facility], Pre- visit Testing Orthopedic Surgery Junior Paulino M.D. Orders (L shldr in [address] pain) [place], [place] [address] [facility] [address] [place], [place] [phone] (Work) [phone] Social History Tobacco Use Types Packs/Day Years [...] or relatives? How often do you attend restorationist or More than 4 times per year 07/24/2020 worship services? Do you belong to any clubs or Yes 07/24/2020 organizations such as restorationist groups, unions, fraternal or athletic groups, or [...] Lab Laboratory Medicine King Gamboa M.D. [address] [place] [phone] 03/18/2022 Comprehensive Visit Physical Medicine and Depompolo, Rehabilitation King Paulino M.D. [address] [place] [phone] 03/18/2022 Comprehensive Visit Physical Medicine and DepKing ames M.D. [address] [place] [phone] Rehabilitation Yazmin Zaragoza M.S., O.T., [facility] [address] [place] [phone] 03/18/2022 Comprehensive Visit Infectious Diseases King Gamboa M.D. [address] [place] [phone] 03/19/2022 Comprehensive Visit Physical Medicine and Depompnirav, Rehabilitation King Paulino M.D. [address] [place] [phone] documented as of this encounter Results DX Shoulder [...]
--- OUTSIDE RECORDS SUMMARY | 2022-02-06 21:31 | XMS_ITS | Clinical Summary ---
:1945 Author Organization [facility] Address [address] [place] [address] Care Team Providers Name Role Phone Unavailable Primary Care Provider Unavailable Source Comments Patient records contain information from all sites at [facility]. For routine questions regarding patient records, call [phone] during business hours, M-F 8:00 AM - 5:00 PM Central Time. 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 How often do you attend anabaptist or More than 4 times per year 07/24/2020 mandaeism services? Do you belong to any clubs or Yes 07/24/2020 organizations such as anabaptist groups, unions, fraternal or athletic groups, or [...] place to sleep or slept in a long term (including now)? Education Answer Date Recorded What [...] 06/26/2016 10:29 AM CDT Plan of Treatment Upcoming Encounters Date Type Specialty Care Team Description 03/14/2022 Clinical Communication Admitting/Central Scheduling 03/18/2022 Lab Laboratory Medicine King Gamboa M.D. [address] [place] [phone] 03/18/2022 Comprehensive Visit Physical Medicine and Bee, Rehabilitation King Paulino M.D. [address] [place] [phone] 03/18/2022 Comprehensive Visit Physical Medicine and Depomp King gastelum M.D. [address] [place] [phone] Rehabilitation Yazmin Zaragoza M.S., O.T., [facility] [address] [place] [phone] 03/18/2022 Comprehensive Visit Infectious Diseases King Gamboa M.D. [address] [place] [address] [phone] 03/19/2022 Comprehensive Visit Physical Medicine and Deppadmaja, Rehabilitation King Paulino M.D. [address] [place] [phone] Health Maintenance Due Date Last Done Comments Diabetic Office Visit with Foot 1945 Exam Dilated Eye Exam 1945 Hemoglobin A1C 1945 Hepatitis C Screening 1945 Office Visit for Blood Pressure 1945 Check / Re-check Urine Albumin 1945 Hepatitis B Vaccines (1 of 3 - 2005 Risk 3-dose series) Creatinine Level 12/09/2019 12/08/2018, 08/12/2018, 04/05/2013 Depression Screening (Annual 03/02/2021 PHQ-2) Fall Risk [...] FIT Discontinued Medical Devices Implanted Type Area Artillery Officer Device Shelf Model / Identifier Expiration Serial / Date Lot Conversions - Default Historical Implant Device Cardiac Chest Implanted: 06/26/2016 (Quantity not on file) Stent Description: Body Location - Chest. Aviva ce Status Text - Cardiac. Insurance Payer Benefit Plan Subscriber ID Effective Phone Address Typ e / Group Dates MEDICARE MEDICARE A [id number] 2010-Prese [address] [place] [address] FOR FOR [id number] 2019-Prese [phone] [address] [employer] LIFE nt [address] [place] [address] (Home) [place] [address]
--- OUTSIDE RECORDS SUMMARY | 2022-02-06 21:31 | XMS_ITS | Encounter Summary ---
:1945 Author Organization [facility] Address [address] [place] [address] Care Team Providers Name Role Phone Unavailable Primary Care Provider Unavailable Reason for Referral Outpatient (Routine) - Closed Specialty Diagnoses / Procedures Referred By Contact Refer red To Contact Orthopedic Surgery Diagnoses Pain Shoulder Left Gum[facility] [place] [facility] Kathy [address] [place] [address] Referral ID Status Reason Start Date Expiration Date Visits Requ ested Visits Authorized [id number] Closed 07/17/2020 07/17/2021 1 1 Encounter Details Date Type Department Care Team Description 07/17/2020 Community Orders [facility] Sherry, Pain Shoulder Left AND CLINICS Kathy Naik (Primary Dx) [address] [place] [address] [address] [place] [address] [place], [place] [phone] Social History Tobacco Use Types Packs/Day Years [...] More than 4 times per year 07/24/2020 presybeterian services? Do you belong to any clubs [...] Lab Laboratory Medicine King Gamboa M.D. [address] [place] [phone] 03/18/2022 Comprehensive Visit Physical Medicine and Leandro Gamboa M.D. [address] [place] [phone] 03/18/2022 Comprehensive Visit Physical Medicine and King Jordan M.D. [address] [place] [phone] Rehabilitation Yazmin Zaragoza M.S., O.T., [facility] [address] [place] [phone] 03/18/2022 Comprehensive Visit Infectious Diseases King Gamboa M.D. [address] [place] [address] [phone] 03/19/2022 Comprehensive Visit Physical Medicine and Leandro Gamboa M.D. [address] [place] [address] [phone] Scheduled Referrals Name Type Priority Associated Order Schedule Diagnoses Orthopedics Referral Outpatient Referral Routine Pain Shoulder Left Expected: 07/17/2020 (Approximate), Expires: 07/18/2023 documented as of this encounter Visit Diagnoses Diagnosis Pain Shoulder Left - Primary documented in this encounter
--- OUTSIDE RECORDS SUMMARY | 2022-02-06 21:31 | XMS_ITS | Encounter Summary ---
:1945 Author Organization [facility] Address [address] [place] [address] Care Team Providers Name Role Phone Unavailable Primary Care Provider Unavailable Reason for Visit Appointment Request (Routine) - Closed Specialty Diagnoses / Procedures Referred By Contact Refer red To Contact Nephrology and Hypertension Referral ID Status Reason Start Date Expiration Date Visits Requ ested Visits Authorized [id number] Closed 01/31/2021 01/31/2022 1 1 Encounter Details Date Type Department Care Team Description 02/11/2021 External Outreach Division of [facility], Hypertensi on And Chronic Kidney Disease Stage 1 (Primary Dx); Nephrology and King Buchanan Jr., Hyperlipidem ia; Hypertension in D.O. Sjogren's (Sicca) Syndrome (HCC); [place], [place] [address] [facility] Proteinuria [address] [place] [phone] Social History Tobacco Use Types Packs/Day Years [...] note under document viewer tab for the [facility] [place] outreach visit from this date. 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 [address] [place] [phone] 03/18/2022 Comprehensive Visit Physical Medicine and Deppadmaja, Rehabilitation King Paulino M.D. [address] [place] [phone] 03/18/2022 Comprehensive Visit Physical Medicine and Depomp King gastelum M.D. [address] [place] [phone] Rehabilitation Yazmin Zaragoza M.S., O.T., [facility] [address] [place] [phone] 03/18/2022 Comprehensive Visit Infectious Diseases King Gamboa M.D. [address] [place] [phone] 03/19/2022 Comprehensive Visit Physical Medicine and Depompnirav, Leandro Paulino M.D. [address] [place] [phone] documented as of this encounter Visit Diagnoses Diagnosis Hypertension And Chronic Kidney Disease Stage 1 - Primary Hyperlipidemia Sjogren's (Sicca) Syndrome (HCC) Proteinuria documented in this encounter
--- OUTSIDE RECORDS SUMMARY | 2022-02-06 21:31 | XMS_ITS | Encounter Summary ---
:1945 Author Organization [facility] Address [address] [place] [address] Care Team Providers Name Role Phone Unavailable Primary Care Provider Unavailable Reason for Visit Outpatient (Routine) - Closed Specialty Diagnoses / Procedures Referred By Contact Refer red To Contact Diagnoses Pain Shoulder Left Vineet Valerio M.D. [facility] Procedures ORS US-Guided aspiration/injection [address] [place] [address] Referral ID Status Reason Start Date Expiration Date Visits Requ ested Visits Authorized [id number] Closed 07/24/2020 07/24/2021 1 1 Encounter Details Date Type Department Care Team Description 07/24/2020 Procedure visit Department of Ramila Burns, Lore Schulz ldnathan Left Orthopedic Surgery in [address] [address] [phone] Social History Tobacco Use Types Packs/Day Years [...] More than 4 times per year 07/24/2020 hinduism services? Do you belong to any clubs [...] this note. Images have been archived in [employer]: click the 'Dept Filter' button in [employer], then the 'Clear (Show All)' button, then [...] Lab Laboratory Medicine King Gamboa M.D. [address] [place] [address] [phone] 03/18/2022 Comprehensive Visit Physical Medicine and Deppadmaja, Leandro Paulino M.D. [address] [place] [address] [phone] 03/18/2022 Comprehensive Visit Physical Medicine and King Jordan M.D. [address] [place] [phone] Rehabilitation Yazmin Zaragoza M.S., O.T., [facility] [address] [place] [address] [phone] 03/18/2022 Comprehensive Visit Infectious Diseases King Gamboa M.D. [address] [place] [phone] 03/19/2022 Comprehensive Visit Physical Medicine and Depompolo, Rehabilitation King Paulino M.D. [address] [place] [phone] documented as of this encounter Procedures Procedure Name Priority Date/Time Associated Diagnosis Comme nts SD ARTHCS ASP/INJ Routine 07/24/2020 12:49 PM Pain Shoulder Le ft Results for this MJR JT W US CDT procedure are i n the results section. documented in this encounter Results SD ARTHCS ASP/INJ MJR JT W US (07/24/2020 [...] note. Images h ave been archived in [employer]: click the 'Dept Filter' button in [employer], then the 'Clear (Show All)' button, then [...]
--- OUTSIDE RECORDS SUMMARY | 2022-02-06 21:31 | XMS_ITS | Encounter Summary ---
:1945 Author Organization [facility] Address [address] [place] [address] Care Team Providers Name Role Phone Unavailable Primary Care Provider Unavailable Encounter Details Date Type Department Care Team Description 07/20/2020 Clinical Communication Central Appointment Carlitos wheatley, Office in [address] [address] Social History Tobacco Use Types [...] More than 4 times per year 07/24/2020 scientology services? Do you belong to any clubs [...] Lab Laboratory Medicine King Gamboa M.D. [address] [place] [phone] 03/18/2022 Comprehensive Visit Physical Medicine and Bee, Rehabilitation King Paulino M.D. [address] [place] [phone] 03/18/2022 Comprehensive Visit Physical Medicine and Depomp King gastelum M.D. [address] [place] [phone] Rehabilitation Yazmin Zaragoza M.S., O.T., [facility] [address] [place] [phone] 03/18/2022 Comprehensive Visit Infectious Diseases King Gamboa M.D. [address] [place] [phone] 03/19/2022 Comprehensive Visit Physical Medicine and Depompnirav, Rehabilitation King Paulino M.D. [address] [place] [phone] documented as of this encounter Visit Diagnoses Not on filedocumented in this encounter
--- OUTSIDE RECORDS SUMMARY | 2022-02-06 21:31 | XMS_ITS | Encounter Summary ---
:1945 Author Organization [facility] Address [address] [place] [address] Care Team Providers Name Role Phone Unavailable Primary Care Provider Unavailable Encounter Details Date Type Department Care Team Description 07/03/2020 Orders Only RST PCP HLTH Tamica Lujan M.D. [address] [place] [address] [phone] (Wo rk) Social History Tobacco [...] or relatives? How often do you attend christian or More than 4 times per year 07/24/2020 hinduism services? Do you belong to any clubs or Yes 07/24/2020 organizations such as christian groups, unions, fraternal or athletic groups, or [...] place to sleep or slept in a retirement (including now)? Sex Assigned at Date Recorded Not on file documented as of this encounter Plan of Treatment Upcoming Encounters Date Type Specialty Care Team Description 03/14/2022 Clinical Communication Admitting/Central Scheduling 03/18/2022 Lab Laboratory Medicine King Gamboa M.D. [address] [place] [address] 03/18/2022 Comprehensive Visit Physical Medicine and Depompnirav, Rehabilitation King Paulino M.D. [address] [place] [address] [phone] 03/18/2022 Comprehensive Visit Physical Medicine and DepKing ames M.D. [address] [place] [address] [phone] Rehabilitation Yazmin Zaragoza M.S., O.T., [facility] [address] [place] [phone] 03/18/2022 Comprehensive Visit Infectious Diseases King Gamboa M.D. [address] [place] [phone] 03/19/2022 Comprehensive Visit Physical Medicine and Depompnirav, Rehabilitation King Paulino M.D. [address] [place] [phone] documented as of this encounter Visit Diagnoses Not on filedocumented in this encounter
--- OUTSIDE RECORDS SUMMARY | 2022-02-06 21:31 | XMS_ITS | Encounter Summary ---
:1945 Author Organization [facility] Address [address] [place] [address] Care Team Providers Name Role Phone Unavailable Primary Care Provider Unavailable Reason for Referral Outpatient (Routine) - Closed Specialty Diagnoses / Procedures Referred By Contact Refer red To Contact Diagnoses Pain Shoulder Left Vineet Valerio M.D. [facility] Procedures ORS US-Guided aspiration/injection [address] [place] [address] Referral ID Status Reason Start Date Expiration Date Visits Requ ested Visits Authorized [id number] Closed 07/24/2020 07/24/2021 1 1 Reason for Visit Reason Comments Pain Outpatient (Routine) - Closed Specialty Diagnoses / Procedures Referred By Contact Refer red To Contact Orthopedic Surgery Diagnoses Pain Shoulder Left Gumaro Powell Henning Komal Chavez [address] [place] [address] Referral ID Status Reason Start Date Expiration Date Visits Requ ested Visits Authorized [id number] Closed 07/17/2020 07/17/2021 1 1 Encounter Details Date Type Department Care Team Description 07/24/2020 Comprehensive Visit Department of Junior Avila Pain Shoulder Left Orthopedic Surgery in Kathy Paulino [place], [place] [address] [facility] [address] [place] [phone] Social History Tobacco Use Types Packs/Day Years [...] or relatives? How often do you attend confucianist or More than 4 times per year 07/24/2020 denominational services? Do you belong to any clubs or Yes 07/24/2020 organizations such as confucianist groups, unions, fraternal or athletic groups, or [...] place to sleep or slept in a assisted (including now)? Education Answer Date Recorded What [...] pain they were advised to contact my lookback coordinator to schedule an MRI. All questions answered. The patient was told to contact the service with any questions or concerns at any time. documented in this encounter Plan of Treatment Upcoming Encounters Date Type Specialty Care Team Description 03/14/2022 Clinical Communication Admitting/Central Scheduling 03/18/2022 Lab Laboratory Medicine King Gamboa M.D. [address] [place] [address] [phone] 03/18/2022 Comprehensive Visit Physical Medicine and Bee, Leandro Paulino M.D. [address] [place] [phone] 03/18/2022 Comprehensive Visit Physical Medicine and Depomp King gastelum M.D. [address] [place] [address] [phone] Rehabilitation Yazmin Zaragoza M.S., O.T., [facility] [address] [place] [phone] 03/18/2022 Comprehensive Visit Infectious Diseases King Gamboa M.D. [address] [place] [phone] 03/19/2022 Comprehensive Visit Physical Medicine and Depompolo, Rehabilitation King Paulino M.D. [address] [place] [phone] documented as of this encounter Results SD ARTHCS ASP/INJ MJR JT W (07/24/2020 12:49 PM CDT) Specimen (Source) Anatomical [...] note. Images h ave been archived in [employer]: click the 'Dept Filter' button in [employer], then the 'Clear (Show All)' button, then [...]
--- OUTSIDE RECORDS SUMMARY | 2022-02-06 21:31 | XMS_ITS | Encounter Summary ---
:1945 Author Organization [facility] Address [address] [place] [address] Care Team Providers Name Role Phone Unavailable Primary Care Provider Unavailable Reason for Visit Reason Comments Pre-scheduling Questionnaire Encounter Details Date Type Department Care Team Description 07/18/2020 Clinical Department of Prescheduling, Pre-scheduli ng Communication Orthopedic Surgery Provider Question evelyn in [place], [place] [address] [place] [phone] Social History Tobacco Use Types Packs/Day Years [...] or relatives? How often do you attend sikh or More than 4 times per year 07/24/2020 yazdanism services? Do you belong to any clubs or Yes 07/24/2020 organizations such as sikh groups, unions, fraternal or athletic groups, or [...] Laboratory Medicine King Gamboa M.D. [address] [place] [phone] 03/18/2022 Comprehensive Visit Physical Medicine and Depompolo, Rehabilitation King Paulino M.D. [address] [place] [phone] 03/18/2022 Comprehensive Visit Physical Medicine and DepKing ames M.D. [address] [place] [address] [phone] Rehabilitation Yazmin Zaragoza M.S., O.T., [facility] [address] [place] [address] [phone] 03/18/2022 Comprehensive Visit Infectious Diseases King Gamboa M.D. [address] [place] [address] [phone] 03/19/2022 Comprehensive Visit Physical Medicine and Depompolo, Rehabilitation King Paulino M.D. [address] [place] [phone] documented as of this encounter Visit Diagnoses Not on filedocumented in this encounter
--- OUTSIDE RECORDS SUMMARY | 2022-02-06 21:31 | XMS_ITS | Encounter Summary ---
:1945 Author Organization [facility] Address [address] [place] [address] Care Team Providers Name Role Phone Unavailable Primary Care Provider Unavailable Encounter Details Date Type Department Care Team Description 02/03/2022 Clinical Communication Department of Physical Depompol o, Medicine and King Paulino M.D. Rehabilitation in [address] [place] [address] [place] [phone] [place] [phone] Social History Tobacco Use Types Packs/Day Years [...] or relatives? How often do you attend yarsanism or More than 4 times per year 07/24/2020 yazidi services? Do you belong to any clubs or Yes 07/24/2020 organizations such as yarsanism groups, unions, fraternal or athletic groups, or [...] place to sleep or slept in a custodial (including now)? Education Answer Date Recorded What is the highest level of school you have completed or 12 th grade 07/24/2020 the highest degree you have received? Sex Assigned at Date Recorded Not on file documented as of this encounter Miscellaneous Notes Telephone Encounter - King Gamboa M.D. - 02/03/2022 7:47 AM POCKET SECRETARY ASSEMBLER This patient was referred to the [facility] for persistent right upper extremity secondary lymphedema. This 76-year-old female was diagnosed with a breast cancer on the right side in 1997 leading to mastectomy and chemotherapy. Unfortunately she had recurrence in 2000 requiring extensive right axillary lymphadenectomy and radiation therapy. She has subsequently been in remission. However, the patient has developed persistent right upper extremity swelling. The last extensive workup for this was in 2016 with an MRI of the axillary region as well as right upper extremity lymphoscintigraphy. The lymphoscintigraphy documented lymphedema and there was no evidence of cancer recurrence. The patient subsequently has been seen by lymphedema therapist including at [facility] in the [facility] for persiste nt swelling. The patient apparently has had several bouts of right upper extremity cellulitis recently as well. The patient's past medical history also includes coronary artery disease; type 2 diabetes mellitus; remote cardiac infarct in 1988; cardiac stents in 2015; hyperlipidemia; degenerative disc and degenerative joint disease of the cervical spine; right knee meniscectomy in 2003; total abdominal hysterectomy with bilateral salpingo-oophorectomy in 1990; and chronic right shoulder pain. I have submitted orders for an evaluation in our lymphedema Clinic to see if there is anything further to offer in terms of her right upper extremity swelling and recurrent right cellulitis. I have also requested input from Infectious Disease regarding the cellulitis. ET SECRETARY ASSEMBLER documented in this encounter Plan of Treatment Upcoming Encounters Date Type Specialty Care Team Description 03/14/2022 Clinical Communication Admitting/Central Scheduling 03/18/2022 Lab Laboratory Medicine King Gamboa M.D. [address] [place] [phone] 03/18/2022 Comprehensive Visit Physical Medicine and Leandro Gamboa M.D. [address] [place] [phone] 03/18/2022 Comprehensive Visit Physical Medicine and King Jordan M.D. [address] [place] [address] [phone] Rehabilitation Yazmin Zaragoza M.S., O.T., [facility] [address] [place] [address] [phone] 03/18/2022 Comprehensive Visit Infectious Diseases King Gamboa M.D. [address] [place] [phone] 03/19/2022 Comprehensive Visit Physical Medicine and Depompnirav, Rehabilitation King Paulino M.D. [address] [place] [phone] documented as of this encounter Visit Diagnoses Not on filedocumented in this encounter
--- OUTSIDE RECORDS SUMMARY | 2022-02-06 21:31 | XMS_ITS | Encounter Summary ---
:1945 Author Organization [facility] Address [address] [place] [address] Care Team Providers Name Role Phone Unavailable Primary Care Provider Unavailable Encounter Details Date Type Department Care Team Description 07/24/2020 Hospital Encounter Department of Teodoro, Vineet Pain Shoulder Left Radiology, Frederick Paulino M.D. [facility], in [address] [place] [address] [address] [place] [address] [place], [place] (Work) [phone] Social History Tobacco Use Types Packs/Day Years [...] More than 4 times per year 07/24/2020 buddhism services? Do you belong to any clubs [...] or slept in a fdc (including now)? Education Answer Date Recorded What [...] Lab Laboratory Medicine King Gamboa M.D. [address] [place] [phone] 03/18/2022 Comprehensive Visit Physical Medicine and Depompolo, Rehabilitation King Paulino M.D. [address] [place] [phone] 03/18/2022 Comprehensive Visit Physical Medicine and Depomp King gastelum M.D. [address] [place] [phone] Rehabilitation Yazmin Zaragoza M.S., O.T., [facility] [address] [place] [phone] 03/18/2022 Comprehensive Visit Infectious Diseases King Gamboa M.D. [address] [place] [address] [phone] 03/19/2022 Comprehensive Visit Physical Medicine and Depompolo, Rehabilitation King Paulino M.D. [address] [place] [address] [phone] documented as of this encounter Procedures Procedure [...]
--- OUTSIDE RECORDS SUMMARY | 2022-02-06 21:31 | XMS_ITS | Encounter Summary ---
:1945 Author Organization [facility] Address [address] [place] [address] Care Team Providers Name Role Phone Unavailable Primary Care Provider Unavailable Encounter Details Date Type Department Care Team Description 12/26/2020 Orders Only RST PCP HLTH Tamica Lujan M.D. [address] [place] [address] [phone] (Wo rk) Social History Tobacco [...] 03/18/2022 Lab Laboratory Medicine King Gamboa M.D. [address] [place] [phone] 03/18/2022 Comprehensive Visit Physical Medicine and Depompnirav, Rehabilitation King Paulino M.D. [address] [place] [phone] 03/18/2022 Comprehensive Visit Physical Medicine and DepKing ames M.D. [address] [place] [phone] Rehabilitation Yazmin Zaragoza M.S., O.T., [facility] [address] [place] [phone] 03/18/2022 Comprehensive Visit Infectious Diseases King Gamboa M.D. [address] [place] [phone] 03/19/2022 Comprehensive Visit Physical Medicine and Depompnirav, Rehabilitation King Paulino M.D. [address] [place] [address] [phone] documented as of this encounter Visit Diagnoses Not on filedocumented in this encounter
--- OUTSIDE RECORDS SUMMARY | 2022-02-06 21:32 | XMS_ITS | Encounter Summary ---
:1945 Author Organization [facility] Address [address] [place] [address] Care Team Providers Name Role Phone Jr Landeros MD Primary Care Provider [phone] Reason for Visit Reason Comments Musculoskeletal Problem right Encounter Details Date Type Department Care Team Description 05/24/2021 Office Visit [facility] Jr Landeros n of right upper Clinic Darrian [place] MD arm (Primary Dx) [address] [place], [place] [address] [address] [place], [place] [phone] (Wo rk) [address] [phone] Social History Tobacco Use Types Packs/Day Years [...] or fail to improve. Jr [facility] 75 year old who [...] limb documented in this encounter Care Teams Conference Producer Relationship Specialty Start Date End Date Jr Landeros MD PCP - General Internal Medicine 05/24/21 [place] [address] documented as of this encounter
--- OUTSIDE RECORDS SUMMARY | 2022-02-06 21:32 | XMS_ITS | Encounter Summary ---
:1945 Author Organization [facility] Address [address] [place] [address]. [place] [address] Care Team Providers Name Role Phone Tiffany Leonard MD Primary Care Provider [phone] Reason for Visit Rehab Therapy Cardiac Therapy (Routine) - Closed Specialty Diagnoses / Procedures Referred By Contact Refer red To Contact CARDIAC REHAB Diagnoses Medicare// NAY Requested order/recs [facility] Procedures EVALUATION [address] [facility] [address] [place] [address] Phone: Fax: Referral ID Status Reason Start Date Expiration Date Visits V isits Requested Authorized FR -CR Closed 12/18/2015 03/01/2016 36 36 ([id number]) Encounter Details Date Type Department Care Team Description 01/25/2016 Hospital Encounter [facility] Cardiac Big , Alex Mas MD [address] [facility] [address] [place] [address] and Pulmonary 1, Rh Cardiac Rehab Rehabilitation [facility] [address] [facility] [address] [place] [address] Social History Tobacco Use [...] 0 07/31 1200 MG OR HOURS NEEDED [id number]: Bronchitis acute pravastatin (PRAVACHOL) Take 1 tablet [...] on filedocumented in this encounter Care Teams Compliance Officer Relationship Specialty Start Date End Date Tiffany Leonard MD PCP - General 04/16/01 05/23/21 documented as of this encounter
--- OUTSIDE RECORDS SUMMARY | 2022-02-06 21:32 | XMS_ITS | Encounter Summary ---
:1945 Author Organization [facility] Address [address] [place] [address]. [place] [address] Care Team Providers Name Role Phone Tiffany Leonard MD Primary Care Provider [phone] Reason for Visit Rehab Therapy Cardiac Therapy (Routine) - Closed Specialty Diagnoses / Procedures Referred By Contact Refer red To Contact CARDIAC REHAB Diagnoses Medicare// NAY Requested order/recs [facility] Procedures EVALUATION [address] [facility] [address] [place] [address] Phone: Fax: Referral ID Status Reason Start Date Expiration Date Visits V isits Requested Authorized FR -CR Closed 12/18/2015 03/01/2016 36 36 ([id number]) Encounter Details Date Type Department Care Team Description 01/30/2016 Hospital Encounter [facility] Cardiac Big , Alex Mas MD [address] [facility] 100 [place] [address] and Pulmonary 1, Rh Cardiac Rehab Rehabilitation [facility] [address] [facility] [address] [place] [address] Social History Tobacco Use [...] 0 07/31 1200 MG OR HOURS NEEDED [id number]: Bronchitis acute pravastatin (PRAVACHOL) Take 1 tablet [...] on filedocumented in this encounter Care Teams Approver Relationship Specialty Start Date End Date Tiffany Leonard MD PCP - General 04/16/01 05/23/21 documented as of this encounter
--- OUTSIDE RECORDS SUMMARY | 2022-02-06 21:32 | XMS_ITS | Encounter Summary ---
:1945 Author Organization [facility] Address [address] [place] [address] Care Team Providers Name Role Phone Unavailable Primary Care Provider Unavailable Encounter Details Date Type Department Care Team Description 07/08/2017 [facility] AND SherryReyes barcenas [facility] Kathy [address] [place] [address] [facility] [place] [address] [place] [address] (Wo rk) Social History Tobacco [...] Lab Laboratory Medicine King Gamboa M.D. [address] [place] [phone] 03/18/2022 Comprehensive Visit Physical Medicine and Depompolo, Rehabilitation King Paluino M.D. [address] [place] [phone] 03/18/2022 Comprehensive Visit Physical Medicine and DepKing ames M.D. [address] [place] [address] [phone] Rehabilitation Yazmin Zaragoza M.S., O.T., [facility] [address] [place] [phone] 03/18/2022 Comprehensive Visit Infectious Diseases King Gamboa M.D. [address] [place] [phone] 03/19/2022 Comprehensive Visit Physical Medicine and Depompolo, Rehabilitation King Paulino M.D. [address] [place] [phone] documented as of this encounter Visit Diagnoses Not on filedocumented in this encounter
--- OUTSIDE RECORDS SUMMARY | 2022-02-06 21:32 | XMS_ITS | Encounter Summary ---
:1945 Author Organization [facility] Address [address] [place] [place] [address] Care Team Providers Name Role Phone Tiffany Leonard MD Primary Care Provider [phone] Encounter Details Date Type Department Care [...] on filedocumented in this encounter Care Teams Heater Room Helper Relationship Specialty Start Date End Date Tiffany Leonard MD PCP - General 04/16/01 documented as of this encounter
--- OUTSIDE RECORDS SUMMARY | 2022-02-06 21:32 | XMS_ITS | Encounter Summary ---
:1945 Author Organization [facility] Address [address] [place] [address] Care Team Providers Name Role Phone Unavailable [...] or relatives? How often do you attend congregation or More than 4 times per year 07/24/2020 baptism services? Do you belong to any clubs or Yes 07/24/2020 organizations such as congregation groups, unions, fraternal or athletic groups, or [...] place to sleep or slept in a jail (including now)? Sex Assigned at Date Recorded Not on file documented as of this encounter Plan of Treatment Upcoming Encounters Date Type Specialty Care Team Description 03/14/2022 Clinical Communication Admitting/Central Scheduling 03/18/2022 Lab Laboratory Medicine King Gamboa M.D. 200 [place] [phone] 03/18/2022 Comprehensive Visit Physical Medicine and Bee, Rehabilitation King Paulino M.D. 200 [place] [phone] 03/18/2022 Comprehensive Visit Physical Medicine and Depomp King gastelum M.D. [address] [place] [phone] Rehabilitation Yazmin Zaragoza M.S., O.T., CLT-ADEBAYO [address] [place] [phone] 03/18/2022 Comprehensive Visit Infectious Diseases King Gamboa M.D. [address] [place] [phone] 03/19/2022 Comprehensive Visit Physical Medicine and Depompolo, Rehabilitation King Paulino M.D. [address] [place] [phone] documented as of this encounter Procedures Procedure [...] 09/05/2003 AM CDT 11:04 AM CDT Narrative [facility] - 09/05/2003 11:04 AM CDT ?09/05/2003 General Biopsy ? ([id number]) ? Requested By: ??Del Amaya M.D. ? ?[phone] ?? Additional Physician: ??Travis rosas M.D. [id number] ? TISSUE DESCRIPTION: [id number] A1 ?? A. ??Antrum, Stomach biopsy: ??(6 [...] Helicobacter pylori. ? 09/06/03 ??Madelaine Rodrigez M.D. [phone] ? Procedure Note 05/23/2017 09/05/2003 General Biopsy ([id number]) Requested By: Del Amaya M.D. [phone] Additional Physician: Travis hinkle M.D. [id number] TISSUE DESCRIPTION: [id number] A1 A. Antrum, Stomach biopsy: (6 pieces [...] No Helicobacter pylori. 09/06/03 Madelaine Rodrigez M.D. [phone] Historical Provider LAB PATHOLOGY/CYTOLOGY ORDER HIRAM Performing Organization Address City/State/ZIP Code Phon e Number [facility] - [address] [place], [place] [address] [facility] documented in this encounter Visit Diagnoses Not on filedocumented in this encounter
--- OUTSIDE RECORDS SUMMARY | 2022-02-06 21:32 | XMS_ITS | Encounter Summary ---
:1945 Author Organization [facility] Address [address] [place] [address] Care Team Providers Name Role Phone Jr Landeros MD Primary Care Provider [phone] Jr Landeros MD Unavailable Encounter Details [...] filedocumented in this encounter Care Teams Fruit Coordinator Relationship Specialty Start Date End Date Jr Landeros MD PCP - General Internal Medicine 05/24/21 [address] [place] [address] Jr Landeros MD Assigned PCP 05/26/21 [address] [id number] documented as of this encounter
--- OUTSIDE RECORDS SUMMARY | 2022-02-06 21:32 | XMS_ITS | Encounter Summary ---
:1945 Author Organization [facility] Address [address] [place] [address] Care Team Providers Name Role Phone Unavailable Primary Care Provider Unavailable Encounter Details Date Type Department Care Team Description 09/06/2015 Hospital Encounter [facility]X [facility] ECHO Trino Elliott M.D. [address] [place] [phone] (Wo rk) Social History Tobacco [...] or relatives? How often do you attend religion or More than 4 times per year 07/24/2020 mu-ism services? Do you belong to any clubs or Yes 07/24/2020 organizations such as religion groups, unions, fraternal or athletic groups, or [...] ELLIOTT MD On: 09/06/2015 02:14 PM Source: [facility] MHSDOLBEYNONRADSYS Document Id: [id number] documented in this encounter Miscellaneous Notes Miscellaneous - Conversion, Historical Provider Ser - 09/06/2015 11:59 PM CDT Coding Summary-Paper Based CODING DATE: 09/11/2015 FINAL [facility] STATUS: * Discharged to Home or Self Care PAYOR: Ann Marie ADMIT DX: REASON FOR VISIT DX: FINAL DX: PRINCIPAL: I25.10 Atherosclerotic heart disease of tribal coronary artery without angina pectoris SECONDARY: R93.1 [...] Revised Date Saved: 09/11/2015 11:08 am Source: [facility] [employer] Document Id: [id number] Miscellaneous - Lisa Oneill R.N. - 08/14/2015 10:36 AM CDT Patient Education Patient Education Entered On: 08/14/2015 10:37 CDT Performed On: 08/14/2015 10:36 CDT by LISA ONEILL RN Education General Patient Education Powergrid Topics : Other: Verbal and written education provided to patient regarding upcoming stress echocardiogram. Encouraged to call if questions arise. LISA ONEILL RN - 08/14/2015 10:36 CDT Source: [facility] VidiowikiCHART Document Id: [id number] CDT!5 documented in this encounter Plan of Treatment Upcoming Encounters Date Type Specialty Care Team Description 03/14/2022 Clinical Communication Admitting/Central Scheduling 03/18/2022 Lab Laboratory Medicine King Gamboa M.D. [address] [place] [phone] 03/18/2022 Comprehensive Visit Physical Medicine and Leandro Gamboa M.D. [address] [place] [phone] 03/18/2022 Comprehensive Visit Physical Medicine and King Jordan M.D. [address] [place] [phone] Rehabilitation Yazmin Zaragoza M.S., O.T., CLT-ADEBAYO [address] [place] [phone] 03/18/2022 Comprehensive Visit Infectious Diseases King Gamboa M.D. [address] [place] [phone] 03/19/2022 Comprehensive Visit Physical Medicine and Depompnirav, Rehabilitation King Paulino M.D. [address] [place] [phone] documented as of this encounter Visit Diagnoses Not on filedocumented in this encounter
--- OUTSIDE RECORDS SUMMARY | 2022-02-06 21:32 | XMS_ITS | Encounter Summary ---
:1945 Author Organization [facility] Address [address] [place] [address] Care Team Providers Name Role Phone Jr Landeros MD Primary Care Provider [phone] Encounter Details Date Type Department Care [...] on filedocumented in this encounter Care Teams Turntable Operator Relationship Specialty Start Date End Date Jr Landeros MD PCP - General Internal Medicine 05/24/21 [address] [place] [address] documented as of this encounter
--- OUTSIDE RECORDS SUMMARY | 2022-02-06 21:32 | XMS_ITS | Encounter Summary ---
:1945 Author Organization [facility] Address [address] [place] [address]. [place] [address] Care Team Providers Name Role Phone Tiffany Leonard MD Primary Care Provider [phone] Reason for Visit Rehab Therapy Cardiac Therapy (Routine) - Closed Specialty Diagnoses / Procedures Referred By Contact Refer red To Contact CARDIAC REHAB Diagnoses Medicare// NAY Requested order/recs [facility] Procedures EVALUATION 105 [facility] [address] [place] [address] Phone: Fax: Referral ID Status Reason Start Date Expiration Date Visits V isits Requested Authorized FR -CR Closed 12/18/2015 03/01/2016 36 36 ([id number]) Encounter Details Date Type Department Care Team Description 01/28/2016 Hospital Encounter [facility] Cardiac Big , Alex Mas MD [address] [facility] 100 [place] [address] and Pulmonary 1, Rh Cardiac Rehab Rehabilitation [facility] [address] [facility] [address] [place] [address] Social History Tobacco Use [...] 0 07/31 1200 MG OR HOURS NEEDED [id number]: Bronchitis acute pravastatin (PRAVACHOL) Take 1 tablet [...] on filedocumented in this encounter Care Teams Chemical Lab Technician Relationship Specialty Start Date End Date Tiffany Leonard MD PCP - General 04/16/01 05/23/21 documented as of this encounter
--- OUTSIDE RECORDS SUMMARY | 2022-02-06 21:32 | XMS_ITS | Encounter Summary ---
:1945 Author Organization [facility] Address [address] [place] [address] Care Team Providers Name Role Phone Unavailable Primary Care Provider Unavailable Reason for Referral Outpatient (Routine) - Closed Specialty Diagnoses / Procedures Referred By Contact Refer red To Contact Urology Diagnoses Incontinence Urinary Gumaro Powell M.D. [place] [address] [place] [address] Referral ID Status Reason Start Date Expiration Date Visits Requ ested Visits Authorized [id number] Closed 04/17/2020 04/17/2021 1 1 STAFF ACCOUNTANT Encounter Details Date Type Department Care Team Description 04/17/[address] [facility] Sultana Powell Ur[facility] CL[facility]ICS Kathy Naik (Primary Dx) [address] [place] [address] [place] [address] [place], [place] [phone] Social History Tobacco Use Types Packs/Day Years [...] or relatives? How often do you attend shinto or More than 4 times per year 07/24/2020 buddhist services? Do you belong to any clubs or Yes 07/24/2020 organizations such as shinto groups, unions, fraternal or athletic groups, or [...] Lab Laboratory Medicine King Gamboa M.D. [address] [place] [phone] 03/18/2022 Comprehensive Visit Physical Medicine and Leandro Gamboa M.D. [address] [place] [phone] 03/18/2022 Comprehensive Visit Physical Medicine and King Jordan M.D. [address] [place] [phone] Rehabilitation Yazmin Zaragoza M.S., O.T., [facility] [address] [place] [phone] 03/18/2022 Comprehensive Visit Infectious Diseases King Gamboa M.D. [address] [place] [phone] 03/19/2022 Comprehensive Visit Physical Medicine and Leandro Gamboa M.D. [address] [place] [phone] Scheduled Referrals Name Type Priority Associated Diagnoses Order S chedule Urology Referral Outpatient Referral Routine Incontinence Urin shayla Expected: 04/17/2020 (Approximate), Expires: 04/17/2023 documented as of this encounter Visit Diagnoses Diagnosis Incontinence Urinary - Primary documented in this encounter
--- OUTSIDE RECORDS SUMMARY | 2022-02-06 21:32 | XMS_ITS | Encounter Summary ---
:1945 Author Organization [facility] Address [address] [place] [address] Care Team Providers Name Role Phone Unavailable [...] Lab Laboratory Medicine King Gamboa M.D. 200 [place] [phone] 03/18/2022 Comprehensive Visit Physical Medicine and Bee, Rehabilitation King Paulino M.D. 200 [place] [phone] 03/18/2022 Comprehensive Visit Physical Medicine and Depomp King gastelum M.D. [address] [place] [phone] Rehabilitation Yazmin Zaragoza M.S., O.T., CLT-ADEBAYO [address] [place] [phone] 03/18/2022 Comprehensive Visit Infectious Diseases DepKing giang M.D. [address] [place] [phone] 03/19/2022 Comprehensive Visit Physical Medicine and Depompolo, Rehabilitation King Paulino M.D. [address] [place] [phone] documented as of this encounter Procedures Procedure [...] ONLY Electronically signed by: Terri Barkley MD [phone] 23-Aug-2002 14:31 Radha Ledbetter APRN, C.N.P. IMG DXA PROCEDURES ECG 12 Lead (08/23/2002 9:53 AM CDT) Specimen (Source) Anatomical Collection Method Collection Time Re ceived Time Location / / Volume Laterality 08/23/2002 9:53 AM CDT [facility] RADIOLOGY SYSTEM - 08/23/2002 10:07 AM CDT 23Aug2002 09:53 VENTRICULAR RATE 60 Normal sinus rhythm Normal ECG When compared with ECG of 09-MAR-1997 09 :37, No significant change was found [id number]^BROOK ??DANI Procedure Note Ethan Faye M.D. - 05/25/2017Format ting of this note might be different from the original. 23Aug2002 09:53 VENTRICULAR RATE 60 Normal sinus rhythm Normal ECG When compared with ECG of 09-MAR-1997 09 :37, No significant change was found [id number]^AMMASH MD^NASER Historical Provider ECG ORDERABLES Performing Organization Address City/State/ZIP Code Phon e Number [facility] [address] [facility] [place] [address], [place] documented in this encounter Visit Diagnoses Not on filedocumented in this encounter
--- OUTSIDE RECORDS SUMMARY | 2022-02-06 21:32 | XMS_ITS | Encounter Summary ---
:1945 Author Organization [facility] Address [address] [place] [address] Care Team Providers Name Role Phone Unavailable [...] or relatives? How often do you attend zoroastrian or More than 4 times per year 07/24/2020 islam services? Do you belong to any clubs or Yes 07/24/2020 organizations such as zoroastrian groups, unions, fraternal or athletic groups, or [...] Lab Laboratory Medicine King Gamboa M.D. 200 [place] [phone] 03/18/2022 Comprehensive Visit Physical Medicine and Bee, Rehabilitation King Paulino M.D. 200 [place] [phone] 03/18/2022 Comprehensive Visit Physical Medicine and Depomp King gastelum M.D. [address] [place] [phone] Rehabilitation Yazmin Zaragoza M.S., O.T., CLT-ADEBAYO [address] [place] [phone] 03/18/2022 Comprehensive Visit Infectious Diseases DepKing giang M.D. [address] [place] [phone] 03/19/2022 Comprehensive Visit Physical Medicine and Depompolo, Rehabilitation King Paulino M.D. [address] [place] [phone] documented as of this encounter Procedures Procedure [...] Electronically signed by: ?? Khushboo Moffett MD. ??[id number] 22-Aug-2002 15 :43 Procedure Note Radha Moffett [...] mCi Electronically [place]: [place]. [id number] 22-Aug-2002 15:4 3 Radha Ledbetter APRN C.N.P. IMG NM PROCEDURES MR Brain without and with IV [...] Electronically signed by: ?? Khushboo Juares M.D. [phone] 22-Aug-2002 16:53 Procedure Note Andrea uJares M.D., Ph.D. - 06/09/2017Fo rmatting of this [...] [id number] Electronically signed by: Khushboo Juares M.D. [phone] 22-Aug-2002 16:53 Radha Ledbetter APRN, C.N.P. IMG MRI PROCEDURES Hx general Pathology Report (08/22/2002 10:24 AM CDT) Specimen Anatomical Collection Method Collection Time Receive d Time (Source) Location / / Volume Laterality 08/22/2002 10:24 08/22/2002 AM CDT 10:[address] [facility] - 08/22/2002 10:24 AM CDT ?08/22/2002 General Biopsy ? ([id number]) ? Requested By: ??Radha Ledbetter, Sarabjit Figueroa ??[phone] ?? Additional Physician: ??Reese calero M.D. [phone] ? TISSUE DESCRIPTION: [id number] A1 ?? A. ??Hepatic flexure transverse rectum, Colon biopsy: ??(6 pieces 0.1 - 0.5 cm. in diameter) ?DIAGNOSIS: ?? Colon, hepatic flexure/transverse/rectu m, endoscopic biopsy: ?? Colonic mucosa with focal active inflam mation and ischemic injury. Infection and NSAID-associated injury c an also produce ischemic changes. ??Separate fragments of normal colonic mucosa are also present. ? 08/23/02 ??Madelaine Rodrigez M.D. [phone] ? Procedure Note 05/23/2017 08/22/2002 General Biopsy ([id number]) Requested By: Radha Ledbetter, R.N Alexi [phone] Additional Physician: Reese Mars M.D. [id number] TISSUE DESCRIPTION: [id number] A1 A. Hepatic flexure transverse rectum, C olon biopsy: (6 pieces 0.1 - 0.5 cm. in diameter) DIAGNOSIS: Colon, hepatic flexure/transverse/rectu m, endoscopic biopsy: Colonic mucosa with focal active inflam mation and ischemic injury. Infection and NSAID-associated injury c an also produce ischemic changes. Separate fragments of normal c olonic mucosa are also present. 08/23/02 Madelaine Rodrigez M.D. [phone] Historical Provider LAB PATHOLOGY/CYTOLOGY ORDER HIRAM Performing Organization Address City/State/ZIP Code Phon e Number [facility] - [address] [place], [place] [address] [facility] documented in this encounter Visit Diagnoses Not on filedocumented in this encounter
--- OUTSIDE RECORDS SUMMARY | 2022-02-06 21:32 | XMS_ITS | Encounter Summary ---
:1945 Author Organization [facility] Address [address] [place] [address] Care Team Providers Name Role Phone Jr Landeros MD Primary Care Provider [phone] Jr Landeros MD Unavailable Reason for Visit Reason Onset Date Comments Medication Request 05/31/2021 Gabapentin 600 MG Encounter Details Date Type Department Care Team Description 05/31/2021 Telephone [facility] Jr Landeros ication Request Clinic Darrian Houston MD (Gabapentin 600 MG) [address] [facility] [address] [place] [address] [place], [place] [phone] (Wo rk) [address] [phone] Social History Tobacco Use Types Packs/Day Years [...] limb documented in this encounter Care Teams Systems Support Specialist Relationship Specialty Start Date End Date Jr Landeros MD PCP - General Internal Medicine 05/24/21 [address] [place], [place] [phone] Jr Landeros MD Assigned PCP 05/26/21 [address] [phone] documented as of this encounter
--- OUTSIDE RECORDS SUMMARY | 2022-02-06 21:32 | XMS_ITS | Encounter Summary ---
:1945 Author Organization [facility] Address [address] [place] [address]. [place] [address] Care Team Providers Name Role Phone Tiffany Leonard MD Primary Care Provider [phone] Reason for Visit Rehab Therapy Cardiac Therapy (Routine) - Closed Specialty Diagnoses / Procedures Referred By Contact Refer red To Contact CARDIAC REHAB Diagnoses Medicare// NAY Requested order/recs [facility] Procedures EVALUATION [facility] [address] [place] [address] Phone: Fax: Referral ID Status Reason Start Date Expiration Date Visits V isits Requested Authorized FR -CR Closed 12/18/2015 03/01/2016 36 36 ([id number]) Encounter Details Date Type Department Care Team Description 02/01/2016 Hospital Encounter [facility] Cardiac Big gs, Alex Mas MD [address] [facility] [address] [place] [address] and Pulmonary 2, Rh Cardiac Rehab Rehabilitation [facility] [address] [facility] [address] [place] [address] Social History Tobacco Use [...] (156 lb 9.6 oz) 02/01/2016 1:00 PM HYGIENE ASSISTANT Height 165.1 cm (5' 5) 02/01/2016 1:00 PM HYGIENE ASSISTANT Body Mass Index 26.06 02/01/2016 1:00 PM HYGIENE ASSISTANT documented in this encounter Medications at Time [...] 0 07/31 1200 MG OR HOURS NEEDED [id number]: Bronchitis acute pravastatin (PRAVACHOL) Take 1 tablet [...] Diagnosis (None) Significant Past CV History Previous PA Comorbidities DM;Previous PA Other Medical History History of breast cancer s/p mastectomy and chemotherapy. 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 Lead up symptoms Lightheadedness, shortness of breath, and chest tightness. Hospital Location [facility] Discharge Date 12/11/15 Signs and Symptoms Post Hospital Discharge None Outpatient Cardiac Rehab Start Date 12/20/[address] Lainez Primary Physician Follow Up Completed Surgeon NA Template Storage Clerk Bina Marie MD Template Storage Clerk Follow Up Completed Ejection Fraction Normal per echo. 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 PT [facility] to discharge to continue a home exercise program to decrease cardiac risk. Goal #1 Target Date 01/24/16 Goal #1 Progress Towards Goal 01/01/2016 PT has started to walk on her treadmill 2 days per week at home for 20 minutes. She also walked one day at the [employer]. She generally does at least 6000 steps [...] needed Learning Assessment Learner Patient Primary Language Romansh Preferred Learning Style Reading Barriers to Learning No barriers noted Patient Education Education recommended Anatomy and Physiology of the Heart;Blood Pressure;Diabetes;Exercise Principles;Medication Overview;Muscle Conditioning;Nutrition;Risk Factors;Stress Management Education classes attended Patient Declined/Refused All Education ENE ASSISTANT documented in this encounter Miscellaneous Notes Addendum Note - Brenda Sarabia OT - 02/01/2016 11:59 PM CSTEncounter addended by: Brenda Sarabia OT on: 02/04/2016 11:42 AM
Documentation filed: Episodes ENE ASSISTANT documented in this encounter Plan of Treatment Not on filedocumented as of this encounter Visit Diagnoses Not on filedocumented in this encounter Care Teams Curb Machine Operator Relationship Specialty Start Date End Date Tiffany Leonard MD PCP - General 04/16/01 05/23/21 documented as of this encounter
--- OUTSIDE RECORDS SUMMARY | 2022-02-06 21:32 | XMS_ITS | Encounter Summary ---
:1945 Author Organization [facility] Address [address] [place] [address] Care Team Providers Name Role Phone Unavailable [...] or relatives? How often do you attend presybeterian or More than 4 times per year 07/24/2020 adventist services? Do you belong to any clubs or Yes 07/24/2020 organizations such as presybeterian groups, unions, fraternal or athletic groups, or [...] Lab Laboratory Medicine King Gamboa M.D. 200 [place] [phone] 03/18/2022 Comprehensive Visit Physical Medicine and Bee, Rehabilitation King Paulino M.D. 200 [place] [phone] 03/18/2022 Comprehensive Visit Physical Medicine and Depomp King gastelum M.D. [address] [place] [phone] Rehabilitation Yazmin Zaragoza M.S., O.T., T-ADEBAYO [address] [place] [phone] 03/18/2022 Comprehensive Visit Infectious Diseases King Gamboa M.D. [address] [place] [phone] 03/19/2022 Comprehensive Visit Physical Medicine and Depompnirav, Rehabilitation King Paulino M.D. [address] [place] [phone] documented as of this encounter Visit Diagnoses Not on filedocumented in this encounter
--- OUTSIDE RECORDS SUMMARY | 2022-02-06 21:32 | XMS_ITS | Encounter Summary ---
:1945 Author Organization [facility] Address [address] [place] [address] Care Team Providers Name Role Phone Jr Landeros MD Primary Care Provider [phone] Jr Landeros MD Unavailable Reason for Visit Reason Comments Cellulitis Encounter Details Date Type Department Care Team Description 08/01/2021 Emergency [facility] Emergency Dept [address] [place] [address] Social History Tobacco Use Types Packs/Day Years [...] 0 07/31 1200 MG OR HOURS NEEDED [id number]: Bronchitis acute pravastatin (PRAVACHOL) 40 Take 1 [...] on filedocumented in this encounter Care Teams Pie Baker Relationship Specialty Start Date End Date Jr Landeros MD PCP - General Internal Medicine 05/24/21 [address], [place] [address] Jr Landeros MD Assigned PCP 05/26/21 [address] [address] documented as of this encounter
--- OUTSIDE RECORDS SUMMARY | 2022-02-06 21:32 | XMS_ITS | Clinical Summary ---
:1945 Author Organization [facility] Address [address] [place] [address] Care Team Providers Name Role Phone Jr Landeros MD Primary Care Provider [phone] Jr Landeros MD Unavailable Allergies Active [...] Active STRENGTH 1200 MG OR 12 HOURS [id number]: NEEDED Bronchitis acute ACCU-CHEK MULTICLIX TEST 1-2 [...] and radiation; Tamoxifen, now Arimedex; followed at [place] Cardiovascular disease Overview: PTCA- age 42 Problem [...] Disease Brother from a heart at [facility] [place] Father Hypertension Father Cancer Maternal Grandfather [...] e / Group Dates ARY/KAYLA ROSA FOR [id number] 2010-Prese [phone] FOR Indemnity [place] LIFE nt 04 LIFE [address] [place] [address] MEDICARE MEDICARE [id number] 2010-Prese [phone] ATTN SHELIADwaine [place] Medicare nt 40 [address] [place] [address] Care Teams Information Technology Assistant Relationship Specialty Start Date End Date Jr Landeros MD PCP - General Internal Medicine 05/24/21 [address] [place] [place] [address] Jr Landeros MD Assigned PCP 05/26/21 [address] [place] [phone]
--- OUTSIDE RECORDS SUMMARY | 2022-02-06 21:32 | XMS_ITS | Encounter Summary ---
:1945 Author Organization [facility] Address [address] [place] [address] Care Team Providers Name Role Phone Unavailable Primary Care Provider Unavailable Reason for Visit Appointment Request (Routine) - Closed Specialty Diagnoses / Procedures Referred By Contact Refer red To Contact Nephrology and Gumaro Powell Hypertension M.D. [address] [place] [address] Referral ID Status Reason Start Date Expiration Date Visits Requ ested Visits Authorized [id number] Closed 03/30/2019 03/29/2020 1 1 Encounter Details Date Type Department Care Team Description 04/06/2019 External Outreach Division of [place] Garza on And Chronic Kidney Disease Stage 1 (Primary Dx); Nephrology and King Buchanan Jr., Sjogren's (S icca) Syndrome (HCC); Hypertension in D.O. Proteinuria; [place], [place] 200 [facility] Myocardial Infarction Old; 200 [place], [place] Cancer Breast Personal Histo ry; [place] [address] Hyperlipidemia [address] [phone] Social History Tobacco Use Types Packs/Day Years [...] of this encounter Consult Notes King Garza Jr., D.O. - 04/06/2019 2:00 PM CST Please see scanned in note under document viewer tab for the [facility] [place] outreach visit from this date. OPERATIONS MANAGER documented in this encounter Plan of Treatment Upcoming Encounters Date Type Specialty Care Team Description 03/14/2022 Clinical Communication Admitting/Central Scheduling 03/18/2022 Lab Laboratory Medicine King Gamboa M.D. [address] [place] [phone] 03/18/2022 Comprehensive Visit Physical Medicine and Leandro Gamboa M.D. [address] [place] [phone] 03/18/2022 Comprehensive Visit Physical Medicine and King Jordan M.D. [address] [place] [phone] Rehabilitation Yazmin Zaragoza M.S., O.T., [facility] [address] [place] [phone] 03/18/2022 Comprehensive Visit Infectious Diseases King Gamboa M.D. [address] [place] [phone] 03/19/2022 Comprehensive Visit Physical Medicine and Leandro Gamboa M.D. [address] [place] [address] documented as of this encounter Visit Diagnoses Diagnosis Hypertension And Chronic Kidney Disease Stage 1 - Primary Sjogren's (Sicca) Syndrome (HCC) Proteinuria Myocardial Infarction Old Cancer Breast Personal History Hyperlipidemia documented in this encounter
--- OUTSIDE RECORDS SUMMARY | 2022-02-06 21:32 | XMS_ITS | Encounter Summary ---
:1945 Author Organization [facility] Address [address] [place] [address] Care Team Providers Name Role Phone Tiffany Leonard MD Primary Care Provider [phone] Encounter Details Date Type Department Care [...] with No / Unsure 05/10/2021 2:10 PM ACCT EXEC someone who was confirmed or suspected to have Coronavirus / COVID-19? documented as of this encounter Plan of Treatment Not on filedocumented as of this encounter Visit Diagnoses Not on filedocumented in this encounter Care Teams Lens Polisher Relationship Specialty Start Date End Date Tiffany Leonard MD PCP - General 04/16/01 documented as of this encounter
--- OUTSIDE RECORDS SUMMARY | 2022-02-06 21:32 | XMS_ITS | Encounter Summary ---
:1945 Author Organization [facility] Address [address] [place] [address] Care Team Providers Name Role Phone Unavailable [...] Lab Laboratory Medicine King Gamboa M.D. 200 [place] [phone] 03/18/2022 Comprehensive Visit Physical Medicine and Bee, Rehabilitation King Paulino M.D. 200 [place] [phone] 03/18/2022 Comprehensive Visit Physical Medicine and Depomp King gastelum M.D. [address] [place] [phone] Rehabilitation Yazmin Zaragoza M.S., O.T., T-[facility] [address] [place] [phone] 03/18/2022 Comprehensive Visit Infectious Diseases King Gamboa M.D. [address] [place] [phone] 03/19/2022 Comprehensive Visit Physical Medicine and Depompnirav, Rehabilitation King Paulino M.D. [address] [place] [address] [phone] documented as of this encounter Visit Diagnoses Not on filedocumented in this encounter
--- OUTSIDE RECORDS SUMMARY | 2022-02-06 21:32 | XMS_ITS | Encounter Summary ---
:1945 Author Organization [facility] Address [address] [place] [address] Care Team Providers Name Role Phone Unavailable Primary Care Provider Unavailable Encounter Details Date Type Department Care Team Description 01/03/2020 Clinical Communication Division of Nephrology King Garza and Hypertension in Chanel Ruiz D.O. [place], [place] [address] [facility] [address] [place] [phone] Social History Tobacco Use Types Packs/Day Years [...] or relatives? How often do you attend jew or More than 4 times per year 07/24/2020 mandaen services? Do you belong to any clubs or Yes 07/24/2020 organizations such as jew groups, unions, fraternal or athletic groups, or [...] scanned into patients chart. Forwarded to nurses. MOBILE RACER documented in this encounter Plan of Treatment Upcoming Encounters Date Type Specialty Care Team Description 03/14/2022 Clinical Communication Admitting/Central Scheduling 03/18/2022 Lab Laboratory Medicine King Gamboa M.D. [address] [place] [phone] 03/18/2022 Comprehensive Visit Physical Medicine and Leandro Gamboa M.D. [address] [place] [phone] 03/18/2022 Comprehensive Visit Physical Medicine and King Jordan M.D. [address] [place] [phone] Rehabilitation Yazmin Zaragoza M.S., O.T., [facility] [address] [place] [phone] 03/18/2022 Comprehensive Visit Infectious Diseases King Gamboa M.D. [address] [place] [phone] 03/19/2022 Comprehensive Visit Physical Medicine and Leandro Gamboa M.D. [address] [place] [phone] documented as of this encounter Visit Diagnoses Not on filedocumented in this encounter
--- OUTSIDE RECORDS SUMMARY | 2022-02-06 21:32 | XMS_ITS | Encounter Summary ---
:1945 Author Organization [facility] Address [address] [place] [address] Care Team Providers Name Role Phone Unavailable [...] Lab Laboratory Medicine King Gamboa M.D. 200 [place] [phone] 03/18/2022 Comprehensive Visit Physical Medicine and Bee, Rehabilitation King Paulino M.D. 200 [place] [phone] 03/18/2022 Comprehensive Visit Physical Medicine and Depomp King gastelum M.D. [address] [place] [phone] Rehabilitation Yazmin Zaragoza M.S., O.T., T-ADEBAYO [address] [place] [phone] 03/18/2022 Comprehensive Visit Infectious Diseases King Gamboa M.D. [address] [place] [address] [phone] 03/19/2022 Comprehensive Visit Physical Medicine and Depompnirav, Rehabilitation King Paulino M.D. [address] [place] [phone] documented as of this encounter Visit Diagnoses Not on filedocumented in this encounter
--- OUTSIDE RECORDS SUMMARY | 2022-02-06 21:32 | XMS_ITS | Encounter Summary ---
:1945 Author Organization [facility] Address 200 [place] [address] Care Team Providers Name Role Phone Unavailable Primary Care Provider Unavailable Reason for Visit Appointment Request (Routine) - Closed Specialty Diagnoses / Procedures Referred By Contact Refer red To Contact Nephrology and Hypertension Referral ID Status Reason Start Date Expiration Date Visits Requ ested Visits Authorized [id number] Closed 12/08/2019 12/07/2020 1 1 Encounter Details Date Type Department Care Team Description 01/04/2020 External Outreach Division of [place], Hypertensi on And Chronic Kidney Disease Stage 1 (Primary Dx); Nephrology and King Buchanan Jr., Sjogren's (S icca) Syndrome (HCC); Hypertension in D.O. Hyperlipidemia; [place], [place] 200 [facility] Cancer Breast Personal History 200 [place] [phone] [phone] Social History Tobacco Use Types Packs/Day Years [...] More than 4 times per year 07/24/2020 mormon services? Do you belong to any clubs [...] note under document viewer tab for the [facility] [place] outreach visit from this date. documented in this encounter Plan of Treatment Upcoming Encounters Date Type Specialty Care Team Description 03/14/2022 Clinical Communication Admitting/Central Scheduling 03/18/2022 Lab Laboratory Medicine King Gamboa M.D. [address] [place] [phone] 03/18/2022 Comprehensive Visit Physical Medicine and Leandro Gamboa M.D. [address] [place] [phone] 03/18/2022 Comprehensive Visit Physical Medicine and King Jordan M.D. [address] [place] [phone] Rehabilitation Yazmin Zaragoza M.S., O.T., [facility] [address] [place] [phone] 03/18/2022 Comprehensive Visit Infectious Diseases King Gamboa M.D. [address] [place] [phone] 03/19/2022 Comprehensive Visit Physical Medicine and Bee, Rehabilitation King Paulino M.D. [address] [place] [phone] documented as of this encounter Visit Diagnoses Diagnosis Hypertension And Chronic Kidney Disease Stage 1 - Primary Sjogren's (Sicca) Syndrome (HCC) Hyperlipidemia Cancer Breast Personal History documented in this encounter
--- OUTSIDE RECORDS SUMMARY | 2022-02-06 21:32 | XMS_ITS | Encounter Summary ---
:1945 Author Organization [facility] Address [address] [place] [address] Care Team Providers Name Role Phone Unavailable Primary Care Provider Unavailable Encounter Details Date Type Department Care Team Description 06/22/2010 Hospital Encounter HX [facility] Sukh Dhaliwal M.D. [address] [address] [place] [phone] (Wo rk) Social History Tobacco Use [...] More than 4 times per year 07/24/2020 jain services? Do you belong to any clubs [...] about the urine culture results. GDD:tjl Doc#: [id number] cc: Electronically Signed By: SUKH FANG MD On: 06/26/2010 05:36 Source: [facility] ISJDICTAPHONESYS Document Id: [id number] documented in this encounter Miscellaneous Notes Miscellaneous - Sukh Fang M.D. - 06/22/2010 1:01 PM CDT Ambulatory Patient Summary [facility] [place] [id number] Visit Information Name: ORLIN NUNEZ Current Date: [...] No Appointments found Your Goals/Additional instructions: Source: [facility] POWERCHART Document Id: [id number] Electronically signed by Lokesh, [facility] Therapist Respiratory [id number] at 08/03/2016 11:32 AM CDT Miscellaneous - Sukh Fang M.D. - 06/22/2010 1:01 PM CDT Ambulatory Depart Summary [facility] - [address] [place] [address] Visit Information Name: ORLIN NUNEZ Current Date: [...] to the patient and/or family, guardian/caregiver. Source: [facility] POWERCHART Document Id: [id number] Electronically signed by Lokesh, [facility] Therapist Respiratory [id number] at 08/03/2016 11:32 AM CDT Miscellaneous - [...] MADDEN LPN - 06/22/2010 12:49 CDT Source: [facility] Cnano TechnologyCHART Document Id: [id number] CDT!6 Miscellaneous - Conversion, Historical Provider Ser - 06/22/2010 12:45 PM CDT Adult Independent Producer Intake/History Document Has Been Updated Adult Independent Producer Intake/History Entered On: 06/22/2010 12:48 CDT Performed [...] By: Patient Preferred Communication Mode: Verbal Languages: Swazi ABIGAIL MADDEN LPN - 06/22/2010 12:45 CDT [...] LPN; Reviewed Date: 06/22/2010 12:42 CDT [facility] Document Id: [id number] CDT!3 documented in this encounter Plan of Treatment Upcoming Encounters Date Type Specialty Care Team Description 03/14/2022 Clinical Communication Admitting/Central Scheduling 03/18/2022 Lab Laboratory Medicine King Gamboa M.D. [address] [place] [phone] 03/18/2022 Comprehensive Visit Physical Medicine and Depompnirav, Rehabilitation King Paulino M.D. [address] [place] [phone] 03/18/2022 Comprehensive Visit Physical Medicine and DepKing ames M.D. [address] [place] [phone] Rehabilitation Yazmin Zaragoza M.S., O.T., CL[facility] [address] [place] [phone] 03/18/2022 Comprehensive Visit Infectious Diseases King Gamboa M.D. [address] [place] [phone] 03/19/2022 Comprehensive Visit Physical Medicine and Depompolo, Rehabilitation King Paulino M.D. [address] [place] [address], [place] [phone] documented as of this encounter Visit Diagnoses Not on filedocumented in this encounter
--- OUTSIDE RECORDS SUMMARY | 2022-02-06 21:32 | XMS_ITS | Encounter Summary ---
:1945 Author Organization [facility] Address [address] [place] [address] Care Team Providers Name Role Phone Unavailable Primary Care Provider Unavailable Encounter Details Date Type Department Care Team Description 07/17/2015 Hospital Encounter HX [facility] Trino Beckford M.D. [address] [place] [phone] (Wo rk) Social History Tobacco Use Types [...] More than 4 times per year 07/24/2020 church services? Do you belong to any clubs [...] Tho Vela Can you schedule Mrs. Quinn ([phone]) for a stress echo with me on ThursdayAugust 28 or another time that is convenient for her and your schedules? I am seeing her in [place] but we do not do the stress tests here so I want to do it in [place]. Thanks Simon Beckford Source: [facility] POWERCHART Document Id: [id number] documented in this encounter Plan of Treatment Upcoming Encounters Date Type Specialty Care Team Description 03/14/2022 Clinical Communication Admitting/Central Scheduling 03/18/2022 Lab Laboratory Medicine King Gamboa M.D. [address] [place] [phone] 03/18/2022 Comprehensive Visit Physical Medicine and Bee, Leandro Paulino M.D. [address] [place] [phone] 03/18/2022 Comprehensive Visit Physical Medicine and King Jordan M.D. [address] [place] [phone] Rehabilitation Yazmin Zaragoza M.S., O.T., [facility] [address] [place] [phone] 03/18/2022 Comprehensive Visit Infectious Diseases King Gamboa M.D. [address] [place] [phone] 03/19/2022 Comprehensive Visit Physical Medicine and Bee, Rehabilitation King Paulino M.D. [address] [place] [phone] documented as of this encounter Visit Diagnoses Not on filedocumented in this encounter
--- OUTSIDE RECORDS SUMMARY | 2022-02-06 21:32 | XMS_ITS | Encounter Summary ---
:1945 Author Organization [facility] Address [address] [place] [address] Care Team Providers Name Role Phone Unavailable [...] or relatives? How often do you attend jewish or More than 4 times per year 07/24/2020 restorationist services? Do you belong to any clubs or Yes 07/24/2020 organizations such as jewish groups, unions, fraternal or athletic groups, or [...] Lab Laboratory Medicine King Gamboa M.D. 200 [place] [phone] 03/18/2022 Comprehensive Visit Physical Medicine and Bee, Rehabilitation King Paulino M.D. 200 [place] [phone] 03/18/2022 Comprehensive Visit Physical Medicine and Depomp King gastelum M.D. [address] [place] [phone] Rehabilitation Yazmin Zaragoza M.S., O.T., T[facility] [address] [place] [address] [phone] 03/18/2022 Comprehensive Visit Infectious Diseases King Gamboa M.D. [address] [place] [address] [phone] 03/19/2022 Comprehensive Visit Physical Medicine and Depompnirav, Rehabilitation King Paulino M.D. [address] [place] [address] [phone] documented as of this encounter Visit Diagnoses Not on filedocumented in this encounter
--- OUTSIDE RECORDS SUMMARY | 2022-02-06 21:33 | XMS_ITS | Encounter Summary ---
:1945 Author Organization [facility] Address [address] [place] [address]. [place] [address] Care Team Providers Name Role Phone Tiffany Leonard MD Primary Care Provider [phone] Reason for Visit Reason Onset Date Comments Refill Request 12/14/2012 Atenolol Encounter Details Date Type Department Care Team Description 12/14/2012 Refill [facility] Tiffany Leonard R efill Request Clinic Cindy BARRIENTOS (Atenolol ) [address] [place] [address] [phone] Social History Tobacco Use Types Packs/Day Years [...] I sent her a reminder letter via [employer] and also mailed her a reminder letter [...] Visit Diagnoses Diagnosis Unspecified cardiovascular disease - [facility] documented in this encounter Care Teams Sr Solutions Consultant Relationship Specialty Start Date End Date Tiffany Leonard MD PCP - General 04/16/01 05/23/21 documented as of this encounter
--- OUTSIDE RECORDS SUMMARY | 2022-02-06 21:33 | XMS_ITS | Encounter Summary ---
:1945 Author Organization [facility] Address [address] [place] [address]. [place] [address] Care Team Providers Name Role Phone Tiffany Leonard MD Primary Care Provider [phone] Reason for Visit Reason Onset Date Comments Refill Request 11/09/2012 Encounter Details Date Type Department Care Team Description 11/09/2012 Refill [facility] Tiffany Leonard MD Refill Request [place] [address] [address] [place] [address] [place] [address] [phone] Social History Tobacco Use Types Packs/Day Years [...] uncontrolled documented in this encounter Care Teams Back Winder Relationship Specialty Start Date End Date Tiffany Leonard MD PCP - General 04/16/01 05/23/21 documented as of this encounter
--- OUTSIDE RECORDS SUMMARY | 2022-02-06 21:33 | XMS_ITS | Encounter Summary ---
:1945 Author Organization [facility] Address [address] [place] [address]. [place] [address] Care Team Providers Name Role Phone Tiffany Leonard MD Primary Care Provider [phone] Reason for Visit Rehab Therapy Cardiac Therapy (Routine) - Closed Specialty Diagnoses / Procedures Referred By Contact Refer red To Contact CARDIAC REHAB Diagnoses Medicare// NAY Requested order/recs [facility] Procedures EVALUATION [address] [place] [address] Phone: Fax: Referral ID Status Reason Start Date Expiration Date Visits V isits Requested Authorized FR -CR Closed 12/18/2015 03/01/2016 36 36 ([id number]) Encounter Details Date Type Department Care Team Description 01/03/2016 Hospital Encounter [facility] Cardiac Big gs, Alex Mas MD [address] [facility] [address] [place] [address] and Pulmonary 2, Rh Cardiac Rehab Rehabilitation [facility] [address] [facility] [address] [place] [address] Social History Tobacco Use [...] 0 07/31 1200 MG OR HOURS NEEDED [id number]: Bronchitis acute pravastatin (PRAVACHOL) Take 1 tablet [...] on filedocumented in this encounter Care Teams Shrimp Peeling Machine Operator Relationship Specialty Start Date End Date Tiffany Leonard MD PCP - General 04/16/01 05/23/21 documented as of this encounter
--- OUTSIDE RECORDS SUMMARY | 2022-02-06 21:33 | XMS_ITS | Encounter Summary ---
:1945 Author Organization [facility] Address [address] [place] [address]. [place] [address] Care Team Providers Name Role Phone Tiffany Leonard MD Primary Care Provider [phone] Reason for Visit Reason Onset Date Comments Refill Request 02/15/2013 atenolol Encounter Details Date Type Department Care Team Description 02/15/2013 Refill [facility] [place] Tiffany Leonard R efill Request Clinic Tammy BARRIENTOS (atenolol) [address] [address] [address] [place] [address] [phone] Social History Tobacco Use Types Packs/Day Years [...] - 1.04 mg/dL Final Preethi Franco RN [facility] [employer] LE PUNCH MACHINE OPERATOR HELPER documented in this encounter Plan of Treatment Not on filedocumented as of this encounter Visit Diagnoses Diagnosis Unspecified cardiovascular disease - Shira mcleod documented in this encounter Care Teams Setter Out Relationship Specialty Start Date End Date Tiffany Leonard MD PCP - General 04/16/01 05/23/21 documented as of this encounter
--- OUTSIDE RECORDS SUMMARY | 2022-02-06 21:33 | XMS_ITS | Encounter Summary ---
:1945 Author Organization [facility] Address [address] [place] [address]. [place] [address] Care Team Providers Name Role Phone Tiffany Leonard MD Primary Care Provider [phone] Reason for Visit Reason Onset Date Comments Refill Request 01/10/2013 metformin Encounter Details Date Type Department Care Team Description 01/10/2013 Refill [facility] Tiffany Leonard R efill Request Clinic Tammy BARRIENTOS (metformin) [address] [address] [address] [place] [address] [phone] Social History Tobacco Use Types Packs/Day Years [...] every 6 months if <7 -Creatinine yearly UCTION MAINTENANCE MECHANIC documented in this encounter Plan of Treatment Not on filedocumented as of this encounter Visit Diagnoses Diagnosis Type 2 diabetes, HbA1c goal < 7% (H) - P rimary Type II or unspecified type diabetes aubrey litus without mention of complication, not stated as uncontrolled documented in this encounter Care Teams Journal Entry Audit Clerk Relationship Specialty Start Date End Date Tiffany Leonard MD PCP - General 04/16/01 05/23/21 documented as of this encounter
--- OUTSIDE RECORDS SUMMARY | 2022-02-06 21:33 | XMS_ITS | Encounter Summary ---
:1945 Author Organization [facility] Address [address] [place] [address]. [place] [address] Care Team Providers Name Role Phone Tiffany Leonard MD Primary Care Provider [phone] Reason for Visit Reason Onset Date Comments Erroneous encounter-disregard 04/15/2012 Encounter Details Date Type Department Care Team Description 04/15/2012 Telephone [facility] Tiffany Leonard Erroneous Clinic Tammy Marinelli MD encounter-disregard [address] [address] [address] [place] [address] [phone] Social History Tobacco Use Types Packs/Day Years [...] on filedocumented in this encounter Care Teams Group Cio Relationship Specialty Start Date End Date Tiffany Leonard MD PCP - General 04/16/01 05/23/21 documented as of this encounter
--- OUTSIDE RECORDS SUMMARY | 2022-02-06 21:33 | XMS_ITS | Encounter Summary ---
:1945 Author Organization [place] Address [address] [place] [address]. [place] [address] Care Team Providers Name Role Phone Tiffany Leonard MD Primary Care Provider [phone] Reason for Visit Rehab Therapy Cardiac Therapy (Routine) - Closed Specialty Diagnoses / Procedures Referred By Contact Refer red To Contact CARDIAC REHAB Diagnoses Medicare// NAY Requested order/recs [facility] Procedures EVALUATION 105 [facility] [address] [place] [address] Phone: Fax: Referral ID Status Reason Start Date Expiration Date Visits V isits Requested Authorized FR -CR Closed 12/18/2015 03/01/2016 36 36 ([id number]) Encounter Details Date Type Department Care Team Description 01/11/2016 Hospital Encounter [facility] Cardiac Big , Alex Mas MD [facility] 100 [place] [address] and Pulmonary 1, Rh Cardiac Rehab Rehabilitation [facility] [address] [facility] [address] [place] [address] Social History Tobacco Use [...] 0 07/31 1200 MG OR HOURS NEEDED [id number]: Bronchitis acute pravastatin (PRAVACHOL) Take 1 tablet [...] Diagnosis (None) Significant Past CV History Previous [place] Comorbidities DM;Previous [place] Other Medical History History of breast cancer s/p mastectomy and chemotherapy. 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 Lead up symptoms Lightheadedness, shortness of breath, and chest tightness. Hospital Location [facility] Discharge Date 12/11/15 Signs and Symptoms Post Hospital Discharge None Outpatient Cardiac Rehab Start Date 12/20/[address] Lainez Primary Physician Follow Up Scheduled Surgeon NA Standard Machine Stitcher Bina Marie MD Ejection Fraction Normal per echo. 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 Quality of Life: If [...] weight loss goal. PT to join [facility] prior to discharge to continue a home exercise program to decrease cardiac risk. Goal #1 Target Date 01/24/16 Goal #1 Progress Towards Goal 01/01/2016 PT has started to walk on her treadmill 2 days per week at home for 20 minutes. She also walked one day at the [employer]. She generally does at least 6000 steps [...] needed Learning Assessment Learner Patient Primary Language Swazi Preferred Learning Style Reading Barriers to Learning No barriers noted Patient Education Education recommended Anatomy and Physiology of the Heart;Blood Pressure;Diabetes;Exercise Principles;Medication Overview;Muscle Conditioning;Nutrition;Risk Factors;Stress Management TENNIS COACH documented in this encounter Plan of Treatment Not on filedocumented as of this encounter Visit Diagnoses Not on filedocumented in this encounter Care Teams Bankruptcy Legal Assistant Relationship Specialty Start Date End Date Tiffany Leonard MD PCP - General 04/16/01 05/23/21 documented as of this encounter
--- OUTSIDE RECORDS SUMMARY | 2022-02-06 21:33 | XMS_ITS | Encounter Summary ---
:1945 Author Organization [place] Address [address] [place] [address]. [place] [address] Care Team Providers Name Role Phone Tiffany Leonard MD Primary Care Provider [phone] Reason for Visit Rehab Therapy Cardiac Therapy (Routine) - Closed Specialty Diagnoses / Procedures Referred By Contact Refer red To Contact CARDIAC REHAB Diagnoses Medicare// NAY Requested order/recs [facility] Procedures EVALUATION 105 [facility] [address] [place] [address] Phone: Fax: Referral ID Status Reason Start Date Expiration Date Visits V isits Requested Authorized FR -CR Closed 12/18/2015 03/01/2016 36 36 ([id number]) Encounter Details Date Type Department Care Team Description 12/24/2015 Hospital Encounter [facility] Cardiac Big , Alex aMs MD [facility] 100 [place] [address] and Pulmonary 1, Rh Cardiac Rehab Rehabilitation [facility] [address] [employer] [address] [place] [address] Social History Tobacco Use [...] 0 07/31 1200 MG OR HOURS NEEDED [id number]: Bronchitis acute pravastatin (PRAVACHOL) Take 1 tablet [...] on filedocumented in this encounter Care Teams Local Area Network Administrator Relationship Specialty Start Date End Date Tiffany Leonard MD PCP - General 04/16/01 05/23/21 documented as of this encounter
--- OUTSIDE RECORDS SUMMARY | 2022-02-06 21:33 | XMS_ITS | Encounter Summary ---
:1945 Author Organization [place] Address [address] [place] [address]. [place] [address] Care Team Providers Name Role Phone Tiffany Leonard MD Primary Care Provider [phone] Reason for Visit Rehab Therapy Cardiac Therapy (Routine) - Closed Specialty Diagnoses / Procedures Referred By Contact Refer red To Contact CARDIAC REHAB Diagnoses Medicare// NAY Requested order/recs [facility] Procedures EVALUATION 105 [facility] [address] [place] [address] Phone: Fax: Referral ID Status Reason Start Date Expiration Date Visits V isits Requested Authorized FR -CR Closed 12/18/2015 03/01/2016 36 36 ([id number]) Encounter Details Date Type Department Care Team Description 12/25/2015 Hospital Encounter [facility] Cardiac Big , Alex Mas MD [facility] 100 [place] [address] and Pulmonary 2, Rh Cardiac Rehab Rehabilitation [facility] [address] [facility] [address] [place] [address] Social History Tobacco Use [...] 0 07/31 1200 MG OR HOURS NEEDED [id number]: Bronchitis acute pravastatin (PRAVACHOL) Take 1 tablet [...] on filedocumented in this encounter Care Teams Traffic Operator Relationship Specialty Start Date End Date Tiffany Leonard MD PCP - General 04/16/01 05/23/21 documented as of this encounter
--- OUTSIDE RECORDS SUMMARY | 2022-02-06 21:33 | XMS_ITS | Encounter Summary ---
:1945 Author Organization [place] Address [address] [place] [address]. [place] [address] Care Team Providers Name Role Phone Tiffany Leonard MD Primary Care Provider [phone] Reason for Referral - Closed Specialty Diagnoses / Procedures Referred By Contact Refer red To Contact Diagnoses Personal history of malignant neoplasm of breast Tiffany Leonard MD Procedures BREAST PROSTHESIS, MASTECTOMY BRA [address] [address] Referral ID Status Reason Start Date Expiration Date Visits Requ ested Visits Authorized [id number] Closed 03/03/2012 08/30/2012 1 1 RIBUTOR CLEANER Reason for Visit Reason Onset Date Comments Refill Request 03/01/2012 Accucheck solution Encounter Details Date Type Department Care Team Description 03/01/2012 MyC Refill [facility] Tiffany Leonard Refill Re [facility] Tammy Marinelli MD (Accucheck solution) [address] [address] [place] [address] [phone] Social History Tobacco Use Types Packs/Day Years [...] Ok per RN protocol Rakel Varghese RN RIBUTOR CLEANER Telephone Encounter - Shirin Kinney - 03/01/2012 6:16 PM CST Last seen 12/31/11, Horacio Last A1c 12/31/11 (6.0) Accucheck solution refilled Forward for DME RIBUTOR CLEANER Telephone Encounter - Shirin Kinney - 03/01/2012 6:15 PM DISTRIBUTOR CLEANER Message from [employer]: Original authorizing provider: Tiffany Leonard MD, MD Mayra Quinn would like a refill of the following medications: Blood Glucose Calibration (ACCU-CHEK STEPHEN) SOLN [Tiffany Leonard MD, MD] Preferred pharmacy: [facility] Comment: Could you please ask Dr. Leonard to write a Rx for three (3) mastectomy bras? If you could fax this prescription to [facility] [employer]hone # [phone] - it would be greatly appreciated. Thank you.....................Mayra Mcintosh, I think I checked the right box above. My glucose monitor isn't working. RIBUTOR CLEANER documented in this encounter Plan of [...] breast documented in this encounter Care Teams Pattern Chart Writer Relationship Specialty Start Date End Date Tiffany Leonard MD PCP - General 04/16/01 05/23/21 documented as of this encounter
--- OUTSIDE RECORDS SUMMARY | 2022-02-06 21:33 | XMS_ITS | Encounter Summary ---
:1945 Author Organization [place] Address [address] [place] [address]. [place] [address] Care Team Providers Name Role Phone Tiffany Leonard MD Primary Care Provider [phone] Reason for Visit Reason Onset Date Comments Refill Request 01/25/2013 pravastatin Encounter Details Date Type Department Care Team Description 01/25/2013 Refill [facility] Tiffany Leonard R efill Request Clinic Cindy BARRIENTOS (pravastatin) [address] [address] [facility] [place] [id number] [phone] Social History Tobacco Use Types Packs/Day Years [...] 04/12/12, LDL 79. Refilled per SO protocol. ATIONS ADMINISTRATIVE ASSISTANT documented in this encounter Plan of Treatment Not on filedocumented as of this encounter Visit Diagnoses Diagnosis Hyperlipidemia LDL goal <100 - Primary Other and unspecified hyperlipidemia documented in this encounter Care Teams Manager Of Procurement Relationship Specialty Start Date End Date Tiffany Leonard MD PCP - General 04/16/01 05/23/21 documented as of this encounter
--- OUTSIDE RECORDS SUMMARY | 2022-02-06 21:33 | XMS_ITS | Encounter Summary ---
:1945 Author Organization [place] Address [address] [place] [address]. [place] [address] Care Team Providers Name Role Phone Tiffany Leonard MD Primary Care Provider [phone] Reason for Visit Reason Onset Date Comments Refill Request 12/02/2012 losartan Encounter Details Date Type Department Care Team Description 12/02/2012 Refill [facility] Tiffany Leonard R efill Request Clinic Tammy BARRIENTOS (losartan) [address] [address] [facility] [place] [address] [phone] Social History Tobacco Use Types Packs/Day Years [...] disease documented in this encounter Care Teams Food Assembler Kitchen Relationship Specialty Start Date End Date Tiffany Leonard MD PCP - General 04/16/01 05/23/21 documented as of this encounter
--- OUTSIDE RECORDS SUMMARY | 2022-02-06 21:33 | XMS_ITS | Encounter Summary ---
:1945 Author Organization [place] Address [address] [place] [address] Care Team Providers Name Role Phone Tiffany Leonard MD Primary Care Provider [phone] Reason for Visit Rehab Therapy Cardiac Therapy (Routine) - Closed Specialty Diagnoses / Procedures Referred By Contact Refer red To Contact CARDIAC REHAB Diagnoses Medicare// NAY Requested order/recs [facility] Procedures EVALUATION [address] [place] [address] [place] [address] Phone: Fax: Referral ID Status Reason Start Date Expiration Date Visits V isits Requested Authorized FR -CR Closed 12/18/2015 03/01/2016 36 36 ([id number]) Encounter Details Date Type Department Care Team Description 12/28/2015 Hospital Encounter [facility] Admit, Dr Srinivasan Cardiac and Pulmonary [facility], [facility] 1400 [place] [address] Rehabilitation 1, Rh Cardiac Rehab [place] [id number] [place] [address] [address] [place] [address] Social History Tobacco Use Types [...] 0 07/31 1200 MG OR HOURS NEEDED [id number]: Bronchitis acute pravastatin (PRAVACHOL) Take 1 tablet [...] on filedocumented in this encounter Care Teams Telecom Sales Consultant Relationship Specialty Start Date End Date Tiffany Leonard MD PCP - General 04/16/01 05/23/21 documented as of this encounter
--- OUTSIDE RECORDS SUMMARY | 2022-02-06 21:33 | XMS_ITS | Encounter Summary ---
:1945 Author Organization [place] Address [address] [place] [address]. [place] [address] Care Team Providers Name Role Phone Tiffany Leonard MD Primary Care Provider [phone] Reason for Visit Rehab Therapy Cardiac Therapy (Routine) - Closed Specialty Diagnoses / Procedures Referred By Contact Refer red To Contact CARDIAC REHAB Diagnoses Medicare// NAY Requested order/recs [facility] Procedures EVALUATION 105 [facility] [address] [place] [address] Phone: Fax: Referral ID Status Reason Start Date Expiration Date Visits V isits Requested Authorized FR -CR Closed 12/18/2015 03/01/2016 36 36 ([id number]) Encounter Details Date Type Department Care Team Description 01/21/2016 Hospital Encounter [facility] Cardiac Big , Alex Mas MD [facility] 100 [place] [address] and Pulmonary 1, Rh Cardiac Rehab Rehabilitation [facility] [address] [facility] [address] [place] [address] Social History Tobacco Use [...] 0 07/31 1200 MG OR HOURS NEEDED [id number]: Bronchitis acute pravastatin (PRAVACHOL) Take 1 tablet [...] on filedocumented in this encounter Care Teams Bowling Ball Patcher Relationship Specialty Start Date End Date Tiffany Leonard MD PCP - General 04/16/01 05/23/21 documented as of this encounter
--- OUTSIDE RECORDS SUMMARY | 2022-02-06 21:33 | XMS_ITS | Encounter Summary ---
:1945 Author Organization [place] Address [address] [place] [address]. [place] [address] Care Team Providers Name Role Phone Tiffany Leonard MD Primary Care Provider [phone] Reason for Visit Rehab Therapy Cardiac Therapy (Routine) - Closed Specialty Diagnoses / Procedures Referred By Contact Refer red To Contact CARDIAC REHAB Diagnoses Medicare// NAY Requested order/recs [facility] Procedures EVALUATION [address] [place] [address] [address] [place] [address] Phone: Fax: Referral ID Status Reason Start Date Expiration Date Visits V isits Requested Authorized FR -CR Closed 12/18/2015 03/01/2016 36 36 ([id number]) Encounter Details Date Type Department Care Team Description 01/04/2016 Hospital Encounter [facility] Cardiac Big , Alex Mas MD [address] [facility] 100 [place] [address] and Pulmonary 1, Rh Cardiac Rehab Rehabilitation [facility] [address] [facility] [address] [place] [address] Social History Tobacco Use [...] 0 07/31 1200 MG OR HOURS NEEDED [id number]: Bronchitis acute pravastatin (PRAVACHOL) Take 1 tablet [...] on filedocumented in this encounter Care Teams Payroll Administrator Relationship Specialty Start Date End Date Tiffany Leonard MD PCP - General 04/16/01 05/23/21 documented as of this encounter
--- OUTSIDE RECORDS SUMMARY | 2022-02-06 21:33 | XMS_ITS | Encounter Summary ---
:1945 Author Organization [place] Address [address] [place] [address] Care Team Providers Name Role Phone Tiffany Leonard MD Primary Care Provider [phone] Reason for Visit Reason Comments Other recs received from [facility]- sent to chart prep for ov with dr enriquez on 12/24/15 [place] Encounter Details Date Type Department Care Team Description 12/05/2015 Documentation Only [facility] Him Use Only, Oth er (recs received [facility] Donita Fung Md For Event from [address] [place] [address] Social History [...] on filedocumented in this encounter Care Teams Ticket Collector Relationship Specialty Start Date End Date Tiffany Leonard MD PCP - General 04/16/01 05/23/21 documented as of this encounter
--- OUTSIDE RECORDS SUMMARY | 2022-02-06 21:33 | XMS_ITS | Encounter Summary ---
:1945 Author Organization [place] Address [address] [place] [address]. [place] [address] Care Team Providers Name Role Phone Tiffany Leonard MD Primary Care Provider [phone] Reason for Visit Reason Onset Date Comments Refill Request 03/05/2012 josy test strips Encounter Details Date Type Department Care Team Description 03/05/2012 Refill [facility] Tiffany Leonard R efill Request (josy [facility] Cindy BARRIENTOS test strips) [address] [address] [address] [place] [address] [phone] Social History Tobacco Use Types Packs/Day Years [...] every 6 months if <7 -Creatinine yearly UREMENT PROFESSIONAL documented in this encounter Plan of Treatment Not on filedocumented as of this encounter Visit Diagnoses Diagnosis Type 2 diabetes, HbA1c goal < 7% (H) - P rimary Type II or unspecified type diabetes aubrey litus without mention of complication, not stated as uncontrolled documented in this encounter Care Teams Asset Protection Officer Relationship Specialty Start Date End Date Tiffany Leonard MD PCP - General 04/16/01 05/23/21 documented as of this encounter
--- OUTSIDE RECORDS SUMMARY | 2022-02-06 21:33 | XMS_ITS | Encounter Summary ---
:1945 Author Organization [place] Address [address] [place] [address] Care Team Providers Name Role Phone Tiffany Leonard MD Primary Care Provider [phone] Encounter Details Date Type Department Care Team Description 04/12/[address] [facility] Typ e 2 diabetes, HbA1C goal < 7% (H); [facility] Type 2 diabetes mellitus wit h proteinuria or microalbuminuria; [address] Hyperlipidemia LDL goal <100 [place] [address] Social History Tobacco Use Types Packs/Day [...] diabetes, HbA1C Results for this QUANTITATIVE AM SEASONAL CLERK goal < 7% (H) procedure are in Type 2 diabetes the results mellitus with section. proteinuria or microalbuminuria LIPID REFLEX TO Routine 04/12/2012 8:45 Type 2 diabetes, HbA1C Results for this DIRECT LDL PANEL AM SEASONAL CLERK goal < 7% (H) procedure are in Type 2 diabetes the results mellitus with section. proteinuria or microalbuminuria Hyperlipidemia LDL goal <100 HEMOGLOBIN A1C Routine 04/12/2012 8:45 Type 2 diabetes, HbA1C Results for this AM SEASONAL CLERK goal < 7% (H) procedure are in Type 2 diabetes the results mellitus with section. proteinuria or microalbuminuria COMPREHENSIVE Routine 04/12/2012 8:45 Type 2 diabetes, HbA1C R esults for this METABOLIC PANEL AM SEASONAL CLERK goal < 7% (H) procedure are in Type 2 diabetes the results mellitus with section. proteinuria or microalbuminuria Hyperlipidemia LDL goal <100 documented in this encounter Results Microalbumin quantitative random urine (04/12/2012 8:46 AM SEASONAL CLERK) P athologist Signature Creatinine 106 mg/dL [facility] Urine [facility] Albumin Urine 20 mg/L [facility] mg/L [facility] Albumin Urine 18.87 0 - 25 [facility] mg/g Cr mg/g Cr [facility] Specimen Anatomical Collection Method Collection Time Receive d Time (Source) Location / / Volume Laterality Urine specimen 04/12/2012 8:46 AM 013 8:47 (specimen) SEASONAL CLERK AM SEASONAL CLERK Tiffany Leonard MD LAB - URINE ORDERABLES Performing Organization Address City/State/ZIP Code Phon e Number [facility] [address] [place], [place] [id number] [place] [address] LABS (ABNORMAL) Comprehensive metabolic panel (04/12/2012 8:45 AM SEASONAL CLERK) P athologist Signature Sodium 139 133 - [...] CLINIC LAB Albumin 4.1 3.3 - 4.9 [place] g/dL [facility] Comment: Reference range changed on 11/01. Protein Total 7.4 6.8 - 8.8 g/dL [facility] Comment: As of 07, reference range reflects plasma specimen type. Alkaline Phosphatase 71 40 - 150 U/L [facility] ALT 18 0 - 50 U/L [facility] CLIN IC LAB AST 19 0 - 45 U/L [facility] CLIN IC LAB Specimen Anatomical Collection Method Collection Time Receive d Time (Source) Location / / Volume Laterality Blood specimen 04/12/2012 8:45 AM 013 8:46 (specimen) SEASONAL CLERK AM SEASONAL CLERK Tiffany Leonard MD LAB - BLOOD ORDERABLES Performing Organization Address City/State/ZIP Code Phon e Number [facility] [address] [place] [address] [facility] [address] [place] [address] (ABNORMAL) Lipid panel reflex to direct LDL (04/12/2012 8:45 AM SEASONAL CLERK) athologist Signature Cholesterol 165 0 - 200 [facility] mg/dL CLINIC LAB Comment: LDL Cholesterol is the primary guide to therapy. The NCEP recommends further evaluation of: patients with cholesterol greater than 200 mg/dL if additional risk facto rs are present, cholesterol greater than 240 mg/dL, triglycerides greater than 1 50 mg/dL, or HDL less than 40 mg/dL. Triglycerides 253 (H) 0 - 150 mg/dL [facility] HDL Cholesterol 36 (L) 50 - 110 mg/dL [facility] LDL Cholesterol Calculated 79 0 - 129 mg/dL [facility] Comment: LDL Cholesterol is the primary guide to therapy: LDL-cholesterol goal in high risk patients is <100 mg/dL and in very high risk patients is <70 mg/dL. VLDL-Cholesterol 51 (H) 0 - 30 mg/dL [facility] Cholesterol/HDL Ratio 4.6 0.0 - 5.0 [facility] Specimen Anatomical Collection Method Collection Time Receive d Time (Source) Location / / Volume Laterality Blood specimen 04/12/2012 8:45 AM 02/11/2 013 8:46 (specimen) SEASONAL CLERK AM SEASONAL CLERK Tiffany Leonard MD LAB - BLOOD ORDERABLES Performing Organization Address City/State/ZIP Code Phon e Number [facility] [address] [facility] [place] [address] [facility] [facility] [address] [place] [place] [address] [phone] Hemoglobin A1c (04/12/2012 8:45 AM SEASONAL CLERK) P athologist Signature Hemoglobin A1C 5.7 4.3 - 6.0 [place] % [facility] Specimen Anatomical Collection Method Collection Time Receive d Time (Source) Location / / Volume Laterality Blood specimen 04/12/2012 8:45 AM 013 8:46 (specimen) SEASONAL CLERK AM SEASONAL CLERK Tiffany Leonard MD LAB - BLOOD ORDERABLES Performing Organization Address City/[facility]/ZIP Code Phon e Number [facility] [address] [facility] [place] [address] [address] [facility] [address] [place] [address] documented in this encounter Visit Diagnoses Diagnosis [...] hyperlipidemia documented in this encounter Care Teams Flexographic Press Set Up Operator Relationship Specialty Start Date End Date Tiffany Leonard MD PCP - General 04/16/01 05/23/21 documented as of this encounter
--- OUTSIDE RECORDS SUMMARY | 2022-02-06 21:33 | XMS_ITS | Encounter Summary ---
:1945 Author Organization [place] Address [address] [place] [address]. [place] [address] Care Team Providers Name Role Phone Tiffany Leonard MD Primary Care Provider [phone] Reason for Visit Rehab Therapy Cardiac Therapy (Routine) - Closed Specialty Diagnoses / Procedures Referred By Contact Refer red To Contact CARDIAC REHAB Diagnoses Medicare// NAY Requested order/recs [facility] Procedures EVALUATION 105 [facility] [address] [place] [address] Phone: Fax: Referral ID Status Reason Start Date Expiration Date Visits V isits Requested Authorized FR -CR Closed 12/18/2015 03/01/2016 36 36 ([id number]) Encounter Details Date Type Department Care Team Description 01/14/2016 Hospital Encounter [facility] Cardiac Big , Alex Mas MD [address] [facility] [address] [place] [address] and Pulmonary 1, Rh Cardiac Rehab Rehabilitation [facility] [address] [facility] [address] [place] [address] Social History Tobacco Use [...] 0 07/31 1200 MG OR HOURS NEEDED [id number]: Bronchitis acute pravastatin (PRAVACHOL) Take 1 tablet [...] on filedocumented in this encounter Care Teams Tax Map Technician Relationship Specialty Start Date End Date Tiffany Leonard MD PCP - General 04/16/01 05/23/21 documented as of this encounter
--- OUTSIDE RECORDS SUMMARY | 2022-02-06 21:33 | XMS_ITS | Encounter Summary ---
:1945 Author Organization [place] Address [address] [place] [address]. [place] [address] Care Team Providers Name Role Phone Tiffany Leonard MD Primary Care Provider [phone] Reason for Visit Rehab Therapy Cardiac Therapy (Routine) - Closed Specialty Diagnoses / Procedures Referred By Contact Refer red To Contact CARDIAC REHAB Diagnoses Medicare// NAY Requested order/recs [facility] Procedures EVALUATION 105 [facility] [address] [place] [place] [address] Phone: Fax: Referral ID Status Reason Start Date Expiration Date Visits V isits Requested Authorized FR -CR Closed 12/18/2015 03/01/2016 36 36 ([id number]) Encounter Details Date Type Department Care Team Description 01/16/2016 Hospital Encounter [facility] Cardiac Big , Alex Mas MD [address] [place] [facility] [address] [facility] 100 [place] [address] and Pulmonary 1, Rh Cardiac Rehab Rehabilitation [facility] [address] [facility] [address] [place] [address] Social History Tobacco Use [...] 0 07/31 1200 MG OR HOURS NEEDED [id number]: Bronchitis acute pravastatin (PRAVACHOL) Take 1 tablet [...] on filedocumented in this encounter Care Teams Health And Human Performance Professor Relationship Specialty Start Date End Date Tiffany Leonard MD PCP - General 04/16/01 05/23/21 documented as of this encounter
--- OUTSIDE RECORDS SUMMARY | 2022-02-06 21:33 | XMS_ITS | Encounter Summary ---
:1945 Author Organization [place] Address [address] [place] [address] Care Team Providers Name Role Phone Tiffany Leonard MD Primary Care Provider [phone] Reason for Visit Rehab Therapy Cardiac Therapy (Routine) - Closed Specialty Diagnoses / Procedures Referred By Contact Refer red To Contact CARDIAC REHAB Diagnoses Medicare// NAY Requested order/recs [facility] Procedures EVALUATION [address] [place] [address] [address] [place] [address] Phone: Fax: Referral ID Status Reason Start Date Expiration Date Visits V isits Requested Authorized [facility] -CR Closed 12/18/2015 03/01/2016 36 36 ([id number]) Encounter Details Date Type Department Care Team Description 01/11/2016 Hospital Encounter [facility] Admit, Dr Srinivasan Cardiac and Pulmonary [facility], [facility] [address] [place] [address] Rehabilitation 1, Rh Cardiac Rehab [place] [id number] [place] [address] [address] [place] [address] Social History Tobacco Use Types [...] 0 07/31 1200 MG OR HOURS NEEDED [id number]: Bronchitis acute pravastatin (PRAVACHOL) Take 1 tablet [...] on filedocumented in this encounter Care Teams Parts Designer Relationship Specialty Start Date End Date Tiffany Leonard MD PCP - General 04/16/01 05/23/21 documented as of this encounter
--- OUTSIDE RECORDS SUMMARY | 2022-02-06 21:33 | XMS_ITS | Encounter Summary ---
:1945 Author Organization [place] Address [address] [place] [address]. [place] [address] Care Team Providers Name Role Phone Tiffany Leonard MD Primary Care Provider [phone] Reason for Visit Rehab Therapy Cardiac Therapy (Routine) - Closed Specialty Diagnoses / Procedures Referred By Contact Refer red To Contact CARDIAC REHAB Diagnoses Medicare// NAY Requested order/recs [facility] Procedures EVALUATION 105 [facility] [address] [place] [address] Phone: Fax: Referral ID Status Reason Start Date Expiration Date Visits V isits Requested Authorized FR -CR Closed 12/18/2015 03/01/2016 36 36 ([id number]) Encounter Details Date Type Department Care Team Description 01/09/2016 Hospital Encounter [facility] Cardiac Big , Alex Mas MD [address] [facility] 100 [place] [address] and Pulmonary 1, Rh Cardiac Rehab Rehabilitation [facility] [address] [facility] [address] [place] [address] Social History Tobacco Use [...] 0 07/31 1200 MG OR HOURS NEEDED [id number]: Bronchitis acute pravastatin (PRAVACHOL) Take 1 tablet [...] on filedocumented in this encounter Care Teams Sectionizer Relationship Specialty Start Date End Date Tiffany Leonard MD PCP - General 04/16/01 05/23/21 documented as of this encounter
--- OUTSIDE RECORDS SUMMARY | 2022-02-06 21:33 | XMS_ITS | Encounter Summary ---
:1945 Author Organization [place] Address [address] [place] [address]. [place] [address] Care Team Providers Name Role Phone Tiffany Leonard MD Primary Care Provider [phone] Reason for Visit Reason Onset Date Comments Refill Request 07/16/2012 prevacid, tenormin, cozaar, pravachol Encounter Details Date Type Department Care Team Description 07/16/2012 MyC Refill [facility] Tiffany Leonard Refill [facility] Tammy Marinelli MD (prevacid, tenormin, [address] [address] [address] coboszaar... [place], [place] [facility] [place] [id number] [phone] Social History Tobacco Use Types Packs/Day Years [...] - 07/16/2012 2:29 PM CDT Message from [employer]: Original authorizing provider: Tiffany Leonard MD, MD Mayra Quinn would like a refill of the following medications: LANsoprazole (PREVACID) 15 MG capsule [Tiffany Leonard MD, MD] atenolol (TENORMIN) 25 MG tablet [Tiffany Leonard MD, MD] losartan (COZAAR) 25 MG tablet [Tiffany Leonard MD, MD] pravastatin (PRAVACHOL) 40 MG tablet [Tiffany Leonard MD, ] Preferred pharmacy: [facility] - [address] Comment: Would you ask Dr. Leonard [...] hyperlipidemia documented in this encounter Care Teams Presentation Specialist Relationship Specialty Start Date End Date Tiffany Leonard MD PCP - General 04/16/01 05/23/21 documented as of this encounter
--- OUTSIDE RECORDS SUMMARY | 2022-02-06 21:33 | XMS_ITS | Encounter Summary ---
:1945 Author Organization [place] Address [address] [place] [address]. [place] [address] Care Team Providers Name Role Phone Tiffany Leonard MD Primary Care Provider [phone] Reason for Visit Rehab Therapy Cardiac Therapy (Routine) - Closed Specialty Diagnoses / Procedures Referred By Contact Refer red To Contact CARDIAC REHAB Diagnoses Medicare// NAY Requested order/recs [facility] Procedures EVALUATION 105 [facility] [address] [place] [address] Phone: Fax: Referral ID Status Reason Start Date Expiration Date Visits V isits Requested Authorized FR -CR Closed 12/18/2015 03/01/2016 36 36 ([id number]) Encounter Details Date Type Department Care Team Description 01/23/2016 Hospital Encounter [facility] Cardiac Big , Alex Mas MD [address] [facility] 100 [place] [address] and Pulmonary 1, Rh Cardiac Rehab Rehabilitation [facility] [address] [facility] [address] [place] [address] Social History Tobacco Use [...] 0 07/31 1200 MG OR HOURS NEEDED [id number]: Bronchitis acute pravastatin (PRAVACHOL) Take 1 tablet [...] on filedocumented in this encounter Care Teams Gun Sealing Machine Operator Relationship Specialty Start Date End Date Tiffany Leonard MD PCP - General 04/16/01 05/23/21 documented as of this encounter
--- OUTSIDE RECORDS SUMMARY | 2022-02-06 21:33 | XMS_ITS | Encounter Summary ---
:1945 Author Organization [place] Address [address] [place] [address]. [place] [address] Care Team Providers Name Role Phone Tiffany Leonard MD Primary Care Provider [phone] Reason for Visit Rehab Therapy Cardiac Therapy (Routine) - Closed Specialty Diagnoses / Procedures Referred By Contact Refer red To Contact CARDIAC REHAB Diagnoses Medicare// NAY Requested order/recs [facility] Procedures EVALUATION 105 [facility] [address] [place] [address] Phone: Fax: Referral ID Status Reason Start Date Expiration Date Visits V isits Requested Authorized FR -CR Closed 12/18/2015 03/01/2016 36 36 ([id number]) Encounter Details Date Type Department Care Team Description 01/07/2016 Hospital Encounter [facility] Cardiac Big , Alex Mas MD [address] [facility] 100 [place] [address] and Pulmonary 1, Rh Cardiac Rehab Rehabilitation [facility] [address] [facility] [address] [place] [address] Social History Tobacco Use [...] 0 07/31 1200 MG OR HOURS NEEDED [id number]: Bronchitis acute pravastatin (PRAVACHOL) Take 1 tablet [...] on filedocumented in this encounter Care Teams Civil Estimator Relationship Specialty Start Date End Date Tiffany Leonard MD PCP - General 04/16/01 05/23/21 documented as of this encounter
--- OUTSIDE RECORDS SUMMARY | 2022-02-06 21:33 | XMS_ITS | Encounter Summary ---
:1945 Author Organization [place] Address [address] [place] [address]. [place] [address] Care Team Providers Name Role Phone Tiffany Leonard MD Primary Care Provider [phone] Reason for Visit Rehab Therapy Cardiac Therapy (Routine) - Closed Specialty Diagnoses / Procedures Referred By Contact Refer red To Contact CARDIAC REHAB Diagnoses Medicare// NAY Requested order/recs [facility] Procedures EVALUATION 105 [facility] [address] [place] [address] Phone: Fax: Referral ID Status Reason Start Date Expiration Date Visits V isits Requested Authorized FR -CR Closed 12/18/2015 03/01/2016 36 36 ([id number]) Encounter Details Date Type Department Care Team Description 01/18/2016 Hospital Encounter [facility] Cardiac Big , Alex Mas MD [address] [facility] 100 [place] [address] and Pulmonary 1, Rh Cardiac Rehab Rehabilitation [facility] [address] [facility] [address] [place] [address] Social History Tobacco Use [...] 0 07/31 1200 MG OR HOURS NEEDED [id number]: Bronchitis acute pravastatin (PRAVACHOL) Take 1 tablet [...] on filedocumented in this encounter Care Teams Correspondence School Instructor Relationship Specialty Start Date End Date Tiffany Leonard MD PCP - General 04/16/01 05/23/21 documented as of this encounter
--- OUTSIDE RECORDS SUMMARY | 2022-02-06 21:33 | XMS_ITS | Encounter Summary ---
:1945 Author Organization [place] Address [address] [place] [address] Care Team Providers Name Role Phone Tiffany Leonard MD Primary Care Provider [phone] Reason for Visit Rehab Therapy Cardiac Therapy (Routine) - Closed Specialty Diagnoses / Procedures Referred By Contact Refer red To Contact CARDIAC REHAB Diagnoses Medicare// NAY Requested order/recs [facility] Procedures EVALUATION [address] [place] [address] [address] [place] [address] Phone: Fax: Referral ID Status Reason Start Date Expiration Date Visits V isits Requested Authorized FR -CR Closed 12/18/2015 03/01/2016 36 36 ([id number]) Encounter Details Date Type Department Care Team Description 12/20/2015 Hospital Encounter [facility] Admit, Dr Srinivasan Cardiac and Pulmonary [facility], [facility] [address] [place] [address] Rehabilitation 2, Rh Cardiac Rehab [place] [address] [place] [address] [address] [place] [address] Social History Tobacco Use Types [...] 0 07/31 1200 MG OR HOURS NEEDED [id number]: Bronchitis acute pravastatin (PRAVACHOL) Take 1 tablet [...] motivated to lose weight and establish a snf exercise program to decrease future disease progression. [...] Diagnosis (None) Significant Past CV History Previous NH Comorbidities DM;Previous NH Other Medical History History of breast cancer s/p mastectomy and chemotherapy. 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 Lead up symptoms Lightheadedness, shortness of breath, and chest tightness. Hospital Location [facility] Hospital Discharge Date 12/11/15 Signs and Symptoms Post Hospital Discharge None Outpatient Cardiac Rehab Start Date 12/20/[address] Lainez Primary Physician Follow Up Scheduled Surgeon NA [employer] Team Member Bina Marie MD Ejection Fraction Normal per echo. 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 Quality of Life: [...] maximize weight loss goal. [facility] to continue a home exercise program to decrease cardiac risk. Goal #1 Target Date 01/24/16 Activity/Exercise Comments PT [facility] PT does have a treadmill at home. [...] 0 Learning Assessment Learner Patient Primary Language Danish Preferred Learning Style Reading Barriers to Learning No barriers noted Patient Education Education recommended Anatomy and Physiology of the Heart;Blood Pressure;Diabetes;Exercise Principles;Medication Overview;Muscle Conditioning;Nutrition;Risk Factors;Stress Management documented in this encounter Plan of Treatment Not on filedocumented as of this encounter Visit Diagnoses Not on filedocumented in this encounter Care Teams Electronic Game Developer Relationship Specialty Start Date End Date Tiffany Leonard MD PCP - General 04/16/01 05/23/21 documented as of this encounter
--- OUTSIDE RECORDS SUMMARY | 2022-02-06 21:33 | XMS_ITS | Encounter Summary ---
:1945 Author Organization [place] Address [address] [place] [address]. [place] [address] Care Team Providers Name Role Phone Tiffany Leonard MD Primary Care Provider [phone] Reason for Visit Rehab Therapy Cardiac Therapy (Routine) - Closed Specialty Diagnoses / Procedures Referred By Contact Refer red To Contact CARDIAC REHAB Diagnoses Medicare// NAY Requested order/recs [facility] Procedures EVALUATION [address] [facility] [address] [place] [address] Phone: Fax: Referral ID Status Reason Start Date Expiration Date Visits V isits Requested Authorized FR -CR Closed 12/18/2015 03/01/2016 36 36 ([id number]) Encounter Details Date Type Department Care Team Description 01/01/2016 Hospital Encounter [facility] Cardiac Big gs, Alex Mas MD [address] [facility] 100 [place] [address] and Pulmonary 2, Rh Cardiac Rehab Rehabilitation [facility] [address] [facility] [address] [place] [address] Social History Tobacco Use [...] 0 07/31 1200 MG OR HOURS NEEDED [id number]: Bronchitis acute pravastatin (PRAVACHOL) Take 1 tablet [...] Diagnosis (None) Significant Past CV History Previous [place] Comorbidities DM;Previous [place] Other Medical History History of breast cancer s/p mastectomy and chemotherapy. 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 Lead up symptoms Lightheadedness, shortness of breath, and chest tightness. Hospital Location [facility] Discharge Date 12/11/15 Signs and Symptoms Post Hospital Discharge None Outpatient Cardiac Rehab Start Date 12/20/[address] Lainez Primary Physician Follow Up Scheduled Surgeon NA Referral Coordinator Bina Marie MD Ejection Fraction Normal per echo. 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 Quality of Life: If [...] maximize weight loss goal. PT [facility] to continue a home exercise program to decrease cardiac risk. Goal #1 Target Date 01/24/16 Goal #1 Progress Towards Goal 01/01/2016 PT has started to walk on her treadmill 2 days per week at home for 20 minutes. She also walked one day at the [employer]. She generally does at least 6000 steps per day. Encouraged her to increase her time on the treadmill to 25-30 minutes and she thought this was feasible. Activity/Exercise Comments PT plans to join the [facility]. PT does have a treadmill at [...] needed Learning Assessment Learner Patient Primary Language Prydeinig Preferred Learning Style Reading Barriers to Learning No barriers noted Patient Education Education recommended Anatomy and Physiology of the Heart;Blood Pressure;Diabetes;Exercise Principles;Medication Overview;Muscle Conditioning;Nutrition;Risk Factors;Stress Management Physician cosignature/electronic signature indicates approval of this ITP document. I have established, reviewed and made necessary changes to the individualized treatment plan and exercise prescription for this patient. MENT RESTORER documented in this encounter Plan of Treatment Not on filedocumented as of this encounter Visit Diagnoses Not on filedocumented in this encounter Care Teams Chronograph Operator Relationship Specialty Start Date End Date Tiffany Leonard MD PCP - General 04/16/01 05/23/21 documented as of this encounter
--- OUTSIDE RECORDS SUMMARY | 2022-02-06 21:33 | XMS_ITS | Encounter Summary ---
:1945 Author Organization [place] Address [address] [place] [address]. [place] [address] Care Team Providers Name Role Phone Tiffany Leonard MD Primary Care Provider [phone] Reason for Visit Reason Onset Date Comments Refill Request 02/02/2013 Losartan Encounter Details Date Type Department Care Team Description 02/02/2013 Refill [facility] Tiffany Leonard R efill Request Clinic Tammy BARRIENTOS (Losartan ) [address] [address] [address] [id number] [phone] Social History Tobacco Use Types Packs/Day Years [...] of this multiple times. Rakel Varghese RN E INSPECTOR Telephone Encounter - Tash Smith - 02/02/2013 [...] - 1.04 mg/dL Final Tash Smith RN. 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
--- OUTSIDE RECORDS SUMMARY | 2022-02-06 21:34 | XMS_ITS | Encounter Summary ---
:1945 Author Organization [facility] Address [address] [place] [address] Care Team Providers Name Role Phone Tiffany Leonard MD Primary Care Provider [phone] Reason for Visit Reason Comments Fall Encounter Details Date Type Department Care Team Description 03/05/[address] [facility] Sharri Cunha Closed h ead injury; [facility] Emergency Dep sienna Nino MD Transient diplopia; [address] [facility] Traumatic hematoma of eyelid ; [place], [place] White matter disease [id number] [address] [address] [place]STE[place] 226149 (Wo rk) Social History Tobacco Use Types [...] Comments Blood Pressure 155/80 03/05/2011 4:55 PM BUSINESS OBJECTS ANALYST Pulse 54 03/05/2011 3:45 PM BUSINESS OBJECTS ANALYST Temperature 36.6 ??C (97.9 ??F) 03/05/2011 2:15 PM BUSINESS OBJECTS ANALYST Respiratory Rate 18 03/05/2011 3:47 PM BUSINESS OBJECTS ANALYST Oxygen Saturation 100% 03/05/2011 3:47 PM BUSINESS OBJECTS ANALYST Inhaled Oxygen Concentration - - Weight - - Height - - Body Mass Index - - documented in this encounter Discharge Instructions Discharge InstructionsSharri Cunha MD - 03/05/2011 4:41 PM BUSINESS OBJECTS ANALYST Discuss further brain imaging (MRI) with your doctor to further evaluate the chronic appearing whitematter changes. Take aspiring daily. NESS OBJECTS ANALYST AttachmentsThe following attachments cannot be sent through Care Everywhere.HEAD INJURY, NO WAKE-UP (ADULT) (MAURITANIAN)documented in this encounter Medications at Time of [...] 0 07/31 1200 MG OR HOURS NEEDED [id number]: Bronchitis acute ACCU-CHEK STEPHEN use as directed [...] visual acuity done by ERT, awaiting CT. NESS OBJECTS ANALYST Radha Barrow RN - 03/05/2011 2:45 PM CST Blood sugar 103, notified, no distress. NESS OBJECTS ANALYST Sharri Cunha MD - 03/05/2011 2:28 PM [...] to me. Sharri Cunha MD 03/08/11 1030 NESS OBJECTS ANALYST Yazmin Reynoso RN - 03/05/2011 2:15 PM CST Fell last Thursday am. Pt reports syncope she has a black right eye. Now pt is reporting blurry vision. NESS OBJECTS ANALYST documented in this encounter Plan of Treatment Not on filedocumented as of this encounter Procedures Procedure Name Priority Date/Time Associated Diagnosis Comme nts CT TEMPORAL W/O STAT 03/05/2011 3:45 PM Result s for this CONTRAST BUSINESS OBJECTS ANALYST procedure are i n the results section. CT HEAD W/O STAT 03/05/2011 3:44 PM Results f or this CONTRAST BUSINESS OBJECTS ANALYST procedure are i n the results section. GLUCOSE BY METER Routine 03/05/2011 2:43 PM Resul ts for this BUSINESS OBJECTS ANALYST procedure are i n the results section. documented in this encounter Results CT Temporal orbital sella w/o contrast (03/05/2011 3:45 PM BUSINESS OBJECTS ANALYST) Anatomical Region Laterality Modality Head, SUBRAD CT NEURO, SUBRAD CT NEURO, UMP CT NEURO Computed Tomography Specimen (Source) Anatomical Collection Method Collection Time Re ceived Time Location / / Volume Laterality 03/05/2011 3:45 PM BUSINESS OBJECTS ANALYST Impressions 03/05/2011 4:25 [address] OB[address]S ANALYST CT SCAN OF THE FACE WITHOUT CONTRAST [...] facia l bone fracture. Sharri Cunha MD [facility] CT ORDERABLES Head CT w/o contrast (03/05/2011 3:44 PM BUSINESS OBJECTS ANALYST) Anatomical Region Laterality Modality Head, SUBRAD CT NEURO, SUBRAD CT NEURO, UMP CT NEURO Computed Tomography Specimen (Source) Anatomical Collection Method Collection Time Re ceived Time Location / / Volume Laterality 03/05/2011 3:44 PM BUSINESS OBJECTS ANALYST Impressions 03/05/2011 4:24 PM BUSINESS OBJECTS ANALYST CT SCAN OF THE HEAD WITHOUT CONTRAST [...] scan of the brain. Sharri Cunha MD [facility] CT ORDERABLES (ABNORMAL) Glucose by meter (03/05/2011 2:43 PM BUSINESS OBJECTS ANALYST) P athologist Signature Glucose 103 (H) 60 - 99 POINT OF CARE mg/dL TEST, GLUCOSE Comment: RN/Dr notified Specimen Anatomical Collection Method Collection Time Receive d Time (Source) Location / / Volume Laterality 03/05/2011 2:43 PM 2 3:55 BUSINESS OBJECTS ANALYST PM BUSINESS OBJECTS ANALYST Sharri Cunha MD [facility] POCT Performing Organization Address City/State/ZIP Code Phon e Number FV POINT OF CARE TEST, GLUCOSE POINT OF CARE TEST, GLUCOSE documented in this encounter Visit Diagnoses Diagnosis Closed head injury Head injury, unspecified Transient diplopia Diplopia Traumatic hematoma of eyelid Contusion of eyelids and periocular area White matter disease Other conditions of brain documented in this encounter Care Teams Quality Management Nurse Relationship Specialty Start Date End Date Tiffany Leonard MD PCP - General 04/16/01 05/23/21 documented as of this encounter
--- OUTSIDE RECORDS SUMMARY | 2022-02-06 21:34 | XMS_ITS | Encounter Summary ---
:1945 Author Organization [facility] Address [address] [place] [address]. [place] [address] Care Team Providers Name Role Phone Tiffany Leonard MD Primary Care Provider [phone] Reason for Visit Reason Onset Date Comments Refill Request 04/05/2011 Pravachol Encounter Details Date Type Department Care Team Description 04/05/2011 MyC Refill [facility] Tiffany Leonard Refill [facility] Tammy Marinelli MD (Pravachol) [address] [address] [place] [address] [phone] Social History Tobacco Use Types Packs/Day Years [...] RF-3 Last lipids 10/22/10 LDL-115 Mirian Chan L RESERVATION AGENT Telephone Encounter - Shirin Kinney - 04/07/2011 8:56 AM HOTEL RESERVATION AGENT Message from [employer]: Original authorizing provider: Tiffany Leonard MD, MD Mayra Quinn would like a refill of the following medications: pravastatin (PRAVACHOL) 20 MG tablet [Tiffany Leonard MD, ] Preferred pharmacy: - [facility] Comment: I don't think I remembered to ask for a new Rx for Pravastatin...... L RESERVATION AGENT documented in this encounter Plan of Treatment Not on filedocumented as of this encounter Visit Diagnoses Diagnosis Hyperlipidemia LDL goal <100 - Primary Other and unspecified hyperlipidemia documented in this encounter Care Teams Combatant Diver Officer Relationship Specialty Start Date End Date Tiffany Leonard MD PCP - General 04/16/01 05/23/21 documented as of this encounter
--- OUTSIDE RECORDS SUMMARY | 2022-02-06 21:34 | XMS_ITS | Encounter Summary ---
:1945 Author Organization [facility] Address [address] [place] [address]. [place] [address] Care Team Providers Name Role Phone Tiffany Leonard MD Primary Care Provider [phone] Reason for Visit Reason Onset Date Comments Refill Request 08/26/2010 Neurontin Encounter Details Date Type Department Care Team Description 08/26/2010 MyC Refill [facility] Tiffany Leonard Refill [facility] Tammy Marinelli MD (Neurontin) [address] [address] [phone] Social History Tobacco Use Types Packs/Day Years Used Date Smoking Tobacco: Former Cigarettes Quit : 05/14/1988 Alcohol Use Standard Drinks/Week Comments No 0 (1 standard drink = 0.6 oz pure alcoho l) Sex Assigned at Date Recorded Female 05/22/2021 3:03 PM CDT documented as of this encounter Miscellaneous Notes Telephone Encounter - Shirin Kinney - 08/27/2010 10:45 AM CDT Last refilled #[phone] to [facility]. Per pharmacist, pt picked up #90 on 08/08/10. Will refill/transfer RX for remaining 2 months. Mirian Kinney RN. Telephone Encounter - Shirin Kinney - 08/27/2010 10:38 AM CDT Message from [employer]: Original authorizing provider: Tiffany Quinn would like a refill of the following medications: gabapentin (NEURONTIN) 600 MG tablet [Tiffany Leonard MD] Preferred pharmacy: - [facility] Comment: [facility] now has this medication available. I ordered a Rx from [facility] for one month only. If you could re-send this Rx to [facility] () now they will be filling this [...] uncontrolled documented in this encounter Care Teams Knit Goods Press Hand Relationship Specialty Start Date End Date Tiffany Leonard MD PCP - General 04/16/01 05/23/21 documented as of this encounter
--- OUTSIDE RECORDS SUMMARY | 2022-02-06 21:34 | XMS_ITS | Encounter Summary ---
:1945 Author Organization [facility] Address [facility] [place] [address] Care Team Providers Name Role Phone Tiffany Leonard MD Primary Care Provider [phone] Reason for Visit Reason Comments Diabetes pt fasting for labs HgA1c an d urine to be done PRAVEEN Lipids Encounter Details Date Type Department Care Team Description 12/31/2011 Office Visit [facility] Tiffany Leonard Hyperlipi demia LDL goal <100 (Primary Dx); Clinic Tammy Marinelli MD Type 2 diabetes, HbA1C goal < 7% (H); [address] [address] [address] Dysuria; [address] Other nonspecific finding on examination of urine; JANIA Munoz [place] Hemorrhagic c ystitis; [id number] 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 A1C done today upon arrival to [facility] A1C 6.0 12/31/2011 MICROL [...] list, Allergies, and Medical/Social/Surgical histories reviewed in [facility] andupdated as appropriate. Labs reviewed in [facility] BP Readings from Last 3 Encounters: [...] 7% Comment: A1C 6.0 [facility] reviewed; at goal A1C 5.9 [...] and reviewing meds and potential side effects. RS ASSEMBLER documented in this encounter Plan of [...] Component Value Ref Test Analysis Performed At [facility] Range Method Time Signature Specimen Midstream Urine [facility] Description MICROBIOLOGY Special Specimen [facility] Requests received in MICROBIOLOGY preservative Culture Micro >100,000 [facility] colonies/mL MICROBIOLOGY Escherichia coli Micro Report FINAL [facility] Status 01/02/2012 MICROBIOLOGY Specimen Anatomical Collection [...] Address City/State/ZIP Code Phon e Number [address] [address] [facility] MICROBIOLOGY (ABNORMAL) Urine Microscopic (12/31/2011 9:30 AM CDT) [facility] Method Time Signature WBC Urine 10-25 (A) 0 - 2 [place] /[facility] RBC Urine 5-10 (A) 0 - 2 [place] /[facility] Squamous Moderate (A) FEW /LPF [place] Epithelial [facility] /LP[facility] Urine CLINIC LAB Bacteria Urine Moderate (A) NEG /HPF [place] [facility] Specimen Anatomical Collection Method Collection Time Receive d Time (Source) Location / / Volume Laterality 12/31/2011 9:30 AM 2 9:31 CDT AM CDT Tiffany Leonard MD LAB - URINE ORDERABLES Performing Organization Address City/[facility]/ZIP Code Phon e Number [facility] [address] [address] [facility] (ABNORMAL) *UA reflex to Microscopic and Culture (12/31/2011 9:30 AM CDT) [facility] Method Time Signature Color Urine Yellow [facility] Appearance Urine Clear [facility] Glucose Urine Negative NEG mg/dL [facility] Bilirubin Urine Negative NEG [facility] Ketones Urine Negative NEG mg/dL [facility] Specific [place] 1.025 1.003 - [place] Urine 1.035 [facility] Blood Urine Moderate (A) NEG [facility] pH Urine 5.0 5.0 - 7.0 [place] pH [facility] Protein Albumin Trace (A) NEG mg/dL [place] Urine [facility] Urobilinogen 0.2 0.2 - 1.0 [place] Urine EU/dL [facility] Nitrite Urine Negative NEG [facility] Leukocyte Trace (A) NEG [place] Esterase Urine [facility] Source Midstream [place] Urine [facility] Specimen Anatomical Collection Method Collection Time Receive d Time (Source) Location / / Volume Laterality Urine specimen 12/31/2011 9:30 AM 2 012 9:31 (specimen) CDT AM CDT Tiffany Leonard MD LAB - URINE ORDERABLES Performing Organization Address City/[facility]/ZIP Code Phon e Number [facility] [address] [place], [place] [address] [facility] (ABNORMAL) Microalbumin quantitative random urine (12/31/2011 9:30 AM CDT) Patholo gist Method Time Signature Creatinine 134 mg/dL [facility] Urine [facility]S Albumin Urine 50 mg/L [facility] mg/L [facility] Albumin Urine 37.31 (H) 0 - 25 [facility] mg/g Cr mg/g Cr [facility] Specimen Anatomical Collection Method Collection Time Receive d Time (Source) Location / / Volume Laterality Urine specimen 12/31/2011 9:30 AM 012 9:31 (specimen) CDT AM CDT Tiffany Leonard MD LAB - URINE ORDERABLES Performing Organization Address City/[facility]/ZIP Code Phon e Number [facility] [address] [place], [place] [id number] [place] [address] LABS Hemoglobin (12/31/2011 9:30 AM CDT) P athologist Signature Hemoglobin 13.6 11.7 - 15.7 [place] g/dL [facility] Specimen Anatomical Collection Method Collection Time Receive d Time (Source) Location / / Volume Laterality Blood specimen 12/31/2011 9:30 AM 012 9:31 (specimen) CDT AM CDT Tiffany Leonard MD LAB - BLOOD ORDERABLES Performing Organization Address City/[facility]/ZIP Code Phon e Number [facility] [address] [place], [place] [address] [facility] TSH with free T4 reflex (12/31/2011 9:30 AM CDT) P athologist Signature TSH 1.96 0.4 - 5.0 [place] mU/L [facility]IN[facility] LAB Specimen Anatomical Collection Method Collection Time Receive d Time (Source) Location / / Volume Laterality Blood specimen 12/31/2011 9:30 AM 012 9:31 (specimen) CDT AM CDT iTffany Leonard MD LAB - BLOOD ORDERABLES Performing Organization Address City/State/ZIP Code Phon e Number [facility] [address] [place] [address] [facility] Hemoglobin A1c (12/31/2011 9:30 AM CDT) athologist Signature Hemoglobin A1C 6.0 4.3 - 6.0 [place] % [facility] Specimen Anatomical Collection Method Collection Time Receive d Time (Source) Location / / Volume Laterality Blood specimen 12/31/2011 9:30 AM 012 9:31 (specimen) CDT AM CDT Tiffany Leonard MD LAB - BLOOD ORDERABLES Performing Organization Address City/State/ZIP Code Phon e Number [facility] [address] [place], [place] [address] [facility] Comprehensive metabolic panel (12/31/2011 9:30 AM CDT) athologist Signature Sodium 140 133 - 144 [place] [facility] mmol/L [facility]IN[facility] LAB Potassium 3.9 3.4 - 5.3 [place] [facility] mmol/L [facility] Chloride 102 94 - 109 [place] [facility] mmol/L [facility] Carbon Dioxide 27 20 - 32 [place] [facility] mmol/L [facility] Anion Gap 11 6 - 17 [place] [facility] mmol/L [facility] Glucose 89 60 - 99 [place] [facility] mg/dL [facility] LAB Urea Nitrogen 17 7 - 30 [place] [facility] mg/dL [facility] LAB Creatinine 0.60 0.52 - [place] [facility] 1.04 mg/dL [facility]IN[facility] LAB GFR Estimate >90 >60 [place] [facility] mL/min/1.7 [facility] LAB m2 GFR Estimate If >90 >60 [place] [facility] Black mL/min/1.7 CLINIC LAB m2 Calcium 9.3 8.5 - 10.4 [place] [facility] mg/dL [facility] LAB Bilirubin Total 0.6 0.2 - 1.3 [place] [facility] mg/dL [facility] LAB Albumin 4.0 3.3 - 4.9 [place] [facility] g/dL [facility] LAB Comment: Reference range changed on 11/01. Protein Total 6.9 6.8 - 8.8 g/dL [place] [facility] Comment: As of 07, reference range reflects plasma specimen type. Alkaline Phosphatase 74 40 - 150 U/L [facility] LAB ALT 27 0 - 50 U/L [facility] CL[facility] IC LAB AST 19 0 - 45 U/L [facility] LAB Specimen Anatomical Collection Method Collection Time Receive d Time (Source) Location / / Volume Laterality Blood specimen 12/31/2011 9:30 AM 012 9:31 (specimen) CDT AM CDT Tiffany Leonard MD LAB - BLOOD ORDERABLES Performing Organization Address City/[facility]/ZIP Code Phon e Number [facility] [address] [place] [address] [phone] [facility] (ABNORMAL) Lipid panel reflex to direct LDL (12/31/2011 9:30 AM CDT) athologist Signature Cholesterol 174 0 - 200 [facility] mg/dL CLINIC LAB Comment: LDL Cholesterol is the primary guide to therapy. The NCEP recommends further evaluation of: patients with cholesterol greater than 200 mg/dL if additional risk facto rs are present, cholesterol greater than 240 mg/dL, triglycerides greater than 1 50 mg/dL, or HDL less than 40 mg/dL. Triglycerides 199 (H) 0 - 150 mg/dL [facility] HDL Cholesterol 34 (L) 50 - 110 mg/dL [facility] LDL Cholesterol Calculated 100 0 - 129 mg/dL [facility] Comment: LDL Cholesterol is the primary guide to therapy: LDL-cholesterol goal in high risk patients is <100 mg/dL and in very high risk patients is <70 mg/dL. VLDL-Cholesterol 40 (H) 0 - 30 mg/dL [facility] Cholesterol/HDL Ratio 5.1 (H) 0.0 - 5.0 [facility] Specimen Anatomical Collection Method Collection Time Receive d Time (Source) Location / / Volume Laterality Blood specimen 12/31/2011 9:30 AM 012 9:31 (specimen) CDT AM CDT Tiffany Leonard MD LAB - BLOOD ORDERABLES Performing Organization Address City/[facility]/ZIP Code Phon e Number [facility] [address] [place] [address] [facility] documented in this encounter Visit Diagnoses [...] uncontrolled documented in this encounter Care Teams Shipping And Receiving Clerk Relationship Specialty Start Date End Date Tiffany Leonard MD PCP - General 04/16/01 documented as of this encounter
--- OUTSIDE RECORDS SUMMARY | 2022-02-06 21:34 | XMS_ITS | Encounter Summary ---
:1945 Author Organization [facility] Address [address] [place] [address]. [place] [address] Care Team Providers Name Role Phone Tiffany Leonard MD Primary Care Provider [phone] Reason for Visit Reason Onset Date Comments Chronic Care Conference Provider Overview 07/22/2011 Encounter Details Date Type Department Care Team Description 07/22/2011 Telephone [facility] Tiffany Leonard [facility] Tammy Marinelli MD Conference Provider [address] [address] [address] Overview JANIA Munoz [place] [id number] [phone] Social History Tobacco Use Types Packs/Day Years [...] on filedocumented in this encounter Care Teams Front End Ui Developer Relationship Specialty Start Date End Date Tiffany Leonard MD PCP - General 04/16/01 05/23/21 documented as of this encounter
--- OUTSIDE RECORDS SUMMARY | 2022-02-06 21:34 | XMS_ITS | Encounter Summary ---
:1945 Author Organization [facility] Address [address] [place] [address]. [place] [address] Care Team Providers Name Role Phone Tiffany Leonard MD Primary Care Provider [phone] Encounter Details Date Type Department Care Team Description 08/28/2010 Abstract [facility] Tiffany Leonard DIAGNOSIS NOT YET Clinic Darrian Marinelli MD DEFINED (Primary Dx) [address] [place] [place] [address] [facility] [address] [place] [address] [place], [place] [phone] (Wo rk) [address] [phone] Social History Tobacco Use Types Packs/Day Years [...] Primary documented in this encounter Care Teams Minister Relationship Specialty Start Date End Date Tiffany Leonard MD PCP - General 04/16/01 documented as of this encounter
--- OUTSIDE RECORDS SUMMARY | 2022-02-06 21:34 | XMS_ITS | Encounter Summary ---
:1945 Author Organization [facility] Address [address] [place] [address]. [place] [address] Care Team Providers Name Role Phone Tiffany Leonard MD Primary Care Provider [phone] Reason for Visit (Routine) - Closed Specialty Diagnoses / Procedures Referred By Contact Refer red To Contact Radiology Diagnoses MRA HEAD W/O CONTRAST* Procedure Notes: Cariovascular disease,syncope and collapse,Hx of ASCVDl Syncope on 02/28/2011; small vessel changes on CT. MRI done 8 years ago in [place]; p* Rh Mri Procedures RADIOLOGY [address] [place], [place] [address] Phone: Fax: Referral ID Status Reason Start Date Expiration Date Visits Requ ested Visits Authorized [id number] Closed 03/11/2011 03/10/2012 1 1 Encounter Details Date Type Department Care Team Description 03/12/2011 [facility]iosclerotic cardiovascular disease[facility] MD Isis Syncope and collapse [address] [address] [facility] [place] [address] [id number] Social History Tobacco Use Types Packs/Day Years [...] 0 07/31 1200 MG OR HOURS NEEDED [id number]: Bronchitis acute ACCU-CHEK STEPHEN use as directed [...] Date/Time Associated Diagnosis Comme nts MRA BRAIN (GAMBELL Routine 03/12/2011 9:17 AM ASCVD (arterioscl erotic Results for this OF SON) W/O HEAD NECK SURGEON cardiovascular d isease) procedure are in CONTRAST Syncope and collapse the res ults section. documented in this encounter Results MRI Angiogram head w/o contrast* (03/12/2011 9:17 AM HEAD NECK SURGEON) Anatomical Region Laterality Modality Head, SUBRAD MR NEURO, UMP MR NEURO Magn etic Resonance Specimen (Source) Anatomical Collection Method Collection Time Re ceived Time Location / / Volume Laterality 03/12/2011 9:17 AM HEAD NECK SURGEON Impressions 03/12/2011 11:09 AM HEAD NECK SURGEON MR ANGIOGRAM OF THE HEAD WITHOUT CONTRAS T ?? Mar 12, 2011 9:17:00 AM HISTORY: Syncope and collapse. TECHNIQUE: ??3D [id number] MR angiog cyndie of the head without contrast. COMPARISON: None. FINDINGS: ??The visualized portions of t he distal internal carotid and vertebral arteries, the basilar artery, [place], and the proximal anterior, middle [...] collapse documented in this encounter Care Teams Rice Cleaning Machine Tender Relationship Specialty Start Date End Date Tiffany Leonard MD PCP - General 04/16/01 05/23/21 documented as of this encounter
--- OUTSIDE RECORDS SUMMARY | 2022-02-06 21:34 | XMS_ITS | Encounter Summary ---
:1945 Author Organization [place] Address [address] [place] [address]. [place] [address] Care Team Providers Name Role Phone Tiffany Leonard MD Primary Care Provider [phone] Reason for Visit Reason Onset Date Comments Refill Request 06/12/2011 pravastatin Encounter Details Date Type Department Care Team Description 06/12/2011 MyC Refill [facility] Tiffany Leonard [facility] Tammy Marinelli MD (pravastatin) [address] [address] [place] [address] [phone] Social History Tobacco Use Types Packs/Day Years [...] - 06/12/2011 2:32 PM CDT Message from [employer]: Original authorizing provider: Tiffany Leonard MD, MD Mayra Quinn would like a refill of the following medications: pravastatin (PRAVACHOL) 20 MG tablet [Tiffany Leonard MD, ] Preferred pharmacy: [facility] ORDER Comment: I WOULD LIKE TO REQUEST A RENEWAL OF THE ABOVE MEDICATION - TO BE FAXED TO [facility]. THANK YOU! documented in this encounter Plan of Treatment Not on filedocumented as of this encounter Visit Diagnoses Diagnosis Hyperlipidemia LDL goal <100 - Primary Other and unspecified hyperlipidemia documented in this encounter Care Teams Biostatistics Professor Relationship Specialty Start Date End Date Tiffany Leonard MD PCP - General 04/16/01 05/23/21 documented as of this encounter
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
--- OUTSIDE RECORDS SUMMARY | 2022-02-06 21:34 | XMS_ITS | Encounter Summary ---
:1945 Author Organization [place] Address [address] [place] [address]. [place] [address] Care Team Providers Name Role Phone Tiffany Leonard MD Primary Care Provider [phone] Reason for Visit Reason Onset Date Comments Refill Request 03/04/2011 Prevacid Encounter Details Date Type Department Care Team Description 03/04/2011 MyC Refill [facility] Tiffany Leonard Refill [facility] Tammy Marinelli MD (Prevacid) [address] [address] [address] [place] [address] [phone] Social History Tobacco Use Types Packs/Day Years [...] examHoracio Last filled:05/30/10 #180 RF-3 Mirian Chan CTURAL STEEL FITTER Telephone Encounter - Shirin Kinney - 03/04/2011 4:45 PM STRUCTURAL STEEL FITTER Message from MyChart: Original authorizing provider: Tiffany Leonard MD, MD Mayra Quinn would like a refill of the following medications: LANsoprazole (PREVACID) 15 MG capsule [Tiffany Leonard MD, ] Preferred pharmacy: - [facility] Comment: Could a Rx for the above Lansoprazole [facility]...thank you. CTURAL STEEL FITTER documented in this encounter Plan of Treatment Not on filedocumented as of this encounter Visit Diagnoses Diagnosis Gastritis - Primary Unspecified gastritis and gastroduodenit is without mention of hemorrhage documented in this encounter Care Teams Internetworking Technician Relationship Specialty Start Date End Date Tiffany Leonard MD PCP - General 04/16/01 05/23/21 documented as of this encounter
--- OUTSIDE RECORDS SUMMARY | 2022-02-06 21:34 | XMS_ITS | Encounter Summary ---
:1945 Author Organization [place] Address [address] [place] [address] Care Team Providers Name Role Phone Tiffany Leonard MD Primary Care Provider [phone] Reason for Visit Reason Comments Lipids follow up on labs done in [facility] Diabetes Encounter Details Date Type Department Care Team Description 07/14/2011 Office Visit [facility] Tiffany Leonard Hyperlipi demia LDL goal <100 (Primary Dx); Clinic Tammy Marinelli MD Gastritis; [address] Unspecified cardiovascular disease; [address] Type 2 diabetes, HbA1C goal < 7% (H); [place] [address] [address] [place] [address] [phone] Social History Tobacco Use Types Packs/Day Years [...] related concerns- overall OK; eval done at [facility]; doing well on low dose beta garret. [...] list, Allergies, and Medical/Social/Surgical histories reviewed in [facility] andupdated as appropriate. Labs reviewed in [...] neuropathy documented in this encounter Care Teams Grassroots Organizer Relationship Specialty Start Date End Date Tiffany Leonard MD PCP - General 04/16/01 documented as of this encounter
--- OUTSIDE RECORDS SUMMARY | 2022-02-06 21:34 | XMS_ITS | Encounter Summary ---
:1945 Author Organization [place] Address [facility] [place] [address] Care Team Providers Name Role Phone Tiffany Leonard MD Primary Care Provider [phone] Encounter Details Date Type Department Care Team Description 12/24/2010 Orders Only [facility] Tiffany Leonard ERRONEOUS Clinic Tammy Marinelli MD ENCOUNTER--DISREGARD [address] (Primary Dx) [place], [place] [id number] [phone] Social History Tobacco Use Types Packs/Day Years [...] documented in this encounter Care Teams Manager Social Responsibility Relationship Specialty Start Date End Date Tiffany Leonard MD PCP - General 04/16/01 05/23/21 documented as of this encounter
--- OUTSIDE RECORDS SUMMARY | 2022-02-06 21:34 | XMS_ITS | Encounter Summary ---
:1945 Author Organization [place] Address [facility] [place] [address] Care Team Providers Name Role Phone Tiffany Leonard MD Primary Care Provider [phone] Encounter Details Date Type Department Care Team Description 04/09/2011 Orders Only [facility] Tiffany Lenoard ERRONEOUS Clinic Cindy Marinelli MD ENCOUNTER--DISREGARD [address] (Primary Dx) Cindy [place] [id number] [phone] Social History Tobacco Use Types Packs/Day Years [...] Primary documented in this encounter Care Teams Chief Diversity Officer Relationship Specialty Start Date End Date Tiffany Leonard MD PCP - General 04/16/01 05/23/21 documented as of this encounter
--- OUTSIDE RECORDS SUMMARY | 2022-02-06 21:34 | XMS_ITS | Encounter Summary ---
:1945 Author Organization [place] Address [address] [place] [address]. [place] [address] Care Team Providers Name Role Phone Tiffany Leonard MD Primary Care Provider [phone] Reason for Referral Referral not Required - Closed Specialty Diagnoses / Procedures Referred By Contact Refer red To Contact Diagnoses Internal hemorrhoids Colon polyp, hyperplastic Tiffany Leonard MD COLON & RECTAL SURGERY [address] [facility] [address] [address] [place] [address] Phone: Fax: Referral ID Status Reason Start Date Expiration Date Visits Requ ested Visits Authorized [id number] Closed 10/22/2010 04/20/2011 1 1 Reason for Visit Reason Comments Physical Pre Visit Planning - 2 Attempts call placed 10/16/10 Medicare Visit Mammo's have been done at [facility] in the past but [facility]. Encounter Details Date Type Department Care Team Description 10/22/2010 [facility] at a health care facility; Clinic Tammy Marinelli MD Type 2 diabetes, HbA1C goal < 7% (H); [address] [address] [address] Hyperlipidemia LDL goal <100; [place] [address] NEURPTHY NOS; J[place] Munoz [address] Unspecified cardiovascular disease; [id number] Colon polyp, hyperplastic; Internal hemorrhoids; Unspecifi ed [...] Physical Exam Mammo's have been done [facility] in the past but will be going to [facility]. CC: Mayra Quinn is an 65 [...] hysterectomy. All Histories reviewed and updated in [facility]. Chitra Osorio LPN ROS: C: NEGATIVE [...] appropriate; colon polyps noted on colonoscopy at [place], follow up in next few years; last [...] file 2002 but has had done at [facility] in past fesw years; anticipate follow up [...] Exam - Mammo's have been done at [facility] in the past but will be going to [facility]. Initial BP 118/72 Pulse 62 Resp [...] Signature Hemoglobin A1C 5.9 4.3 - 6.0 [place] % [facility] Specimen Anatomical Collection Method Collection Time Receive d Time (Source) Location / / Volume Laterality Blood specimen 10/22/2010 10:57 1 (specimen) AM CDT 10:58 AM CDT Tiffany Leonard MD LAB - BLOOD ORDERABLES Performing Organization Address City/State/ZIP Code Phon e Number [facility] [address] [place] [address] [facility] (ABNORMAL) Comprehensive metabolic panel (10/22/2010 10:57 AM CDT) P athologist Signature Sodium 145 (H) 133 - 144 [place] mmol/L [facility] Potassium 4.7 3.4 - 5.3 [place] mmol/L [facility] Chloride 104 94 - 109 [place] mmol/L [facility] Carbon Dioxide 30 20 - 32 [place] mmol/L [facility] Anion Gap 11 6 - 17 [place] mmol/L [facility] Glucose 94 60 - 99 [place] mg/dL [facility] Urea Nitrogen 14 7 - 30 [place] mg/dL [facility] Creatinine 0.69 0.52 - [place] 1.04 mg/dL [facility] GFR Estimate 85 >60 [place] mL/min/1.7 [facility] m2 LAB GFR Estimate If >90 >60 [place] Black mL/min/1.7 [facility] m2 LAB Calcium 9.7 8.5 - 10.4 [place] mg/dL [facility] Bilirubin Total 0.5 0.2 - 1.3 [place] mg/dL [facility] Albumin 4.3 3.3 - 4.9 [place] g/dL [facility] Comment: Reference range changed on 11/01. Protein Total 7.4 6.8 - 8.8 g/dL [facility] Comment: As of 07, reference range reflects plasma specimen type. Alkaline Phosphatase 60 40 - 150 U/L [facility] ALT 13 0 - 50 U/L [place] [facility] AST 21 0 - 45 U/L [place] [facility] LAB Specimen Anatomical Collection Method Collection Time Receive d Time (Source) Location / / Volume Laterality Blood specimen 10/22/2010 10:57 1 (specimen) AM CDT 10:58 AM CDT Tiffany Leonard MD LAB - BLOOD ORDERABLES Performing Organization Address City/[facility]/ZIP Code Phon e Number [facility] [address] [place] [address] [facility] Hemoglobin (10/22/2010 10:57 AM CDT) P athologist Signature Hemoglobin 13.6 11.7 - 15.7 [place] g/dL [facility] Specimen Anatomical Collection Method Collection Time Receive d Time (Source) Location / / Volume Laterality Blood specimen 10/22/2010 10:57 1 (specimen) AM CDT 10:58 AM CDT Tiffany Leonard MD LAB - BLOOD ORDERABLES Performing Organization Address City/[facility]/ZIP Code Phon e Number [facility] [address] [place], [place] [address] [facility] TSH with free T4 reflex (10/22/2010 10:57 AM CDT) P athologist Signature TSH 1.03 0.4 - 5.0 [facility] mU/L CLINIC LAB Specimen Anatomical Collection Method Collection Time Receive d Time (Source) Location / / Volume Laterality Blood specimen 10/22/2010 10:57 1 (specimen) AM CDT 10:58 AM CDT Tiffany Leonard MD LAB - BLOOD ORDERABLES Performing Organization Address City/[facility]/ZIP Code Phon e Number [facility] [address] [place] [address] [facility] Vitamin D Deficiency (10/22/2010 10:57 AM CDT) Component Value Ref Test Analysis Performed At Patholo gist Range Method Time Signature 25 [place] Vit D2 <5 ug/L [facility] 25 [place] Vit D3 42 ug/L [facility] 25 [place] Vit D <47 30 - 75 [facility] total Season, race, dietary intake, and treatm ent affect the concentration of ug/L [facility] 13-ktqqhsb-Pjbvpkq D. Values may decrease during ye er [...] Organization Address City/State/ZIP Code Phon e Number [facility] [address] [place] [address] [facility] (ABNORMAL) Lipid panel reflex to direct LDL (10/22/2010 10:57 AM CDT) P athologist Signature Cholesterol 191 0 - 200 [facility] mg/dL CLINIC LAB Comment: LDL Cholesterol is the primary guide to therapy. The NCEP recommends further evaluation of: patients with cholesterol greater than 200 mg/dL if additional risk facto rs are present, cholesterol greater than 240 mg/dL, triglycerides greater than 1 50 mg/dL, or HDL less than 40 mg/dL. Triglycerides 214 (H) 0 - 150 mg/dL [facility] HDL Cholesterol 33 (L) 50 - 110 mg/dL [facility] LDL Cholesterol Calculated 115 0 - 129 mg/dL [facility] Comment: LDL Cholesterol is the primary guide to therapy: LDL-cholesterol goal in high risk patients is <100 mg/dL and in very high risk patients is <70 mg/dL. VLDL-Cholesterol 43 (H) 0 - 30 mg/dL [place] [facility] LAB Cholesterol/HDL Ratio 5.7 (H) 0.0 - 5.0 [facility] Specimen Anatomical Collection Method Collection Time Receive d Time (Source) Location / / Volume Laterality Blood specimen 10/22/2010 10:57 1 (specimen) AM CDT 10:58 AM CDT Tiffany Leonard MD LAB - BLOOD ORDERABLES Performing Organization Address City/State/ZIP Code Phon e Number [address] [address] [facility] documented in this encounter Visit [...] mammogram documented in this encounter Care Teams Data Power Consultant Relationship Specialty Start Date End Date Tiffany Leonard MD PCP - General 04/16/01 05/23/21 documented as of this encounter
--- OUTSIDE RECORDS SUMMARY | 2022-02-06 21:34 | XMS_ITS | Encounter Summary ---
:1945 Author Organization [place] Address [address] [place] [address] Care Team Providers Name Role Phone Tiffany Leonard MD Primary Care Provider [phone] Encounter Details Date Type Department Care Team Description 11/05/2010 Results Only [facility] Tiffany Leonard Co nlon, Hospital Results [address] [place], [place] [address] (Wo rk) Social History [...] on filedocumented in this encounter Care Teams Boilermaker Fitter Relationship Specialty Start Date End Date Tiffany Leonard MD PCP - General 04/16/01 05/23/21 documented as of this encounter
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
--- OUTSIDE RECORDS SUMMARY | 2022-02-06 21:34 | XMS_ITS | Encounter Summary ---
:1945 Author Organization [place] Address [address] [place] [address]. [place] [address] Care Team Providers Name Role Phone Tiffany Leonard MD Primary Care Provider [phone] Reason for Visit Reason Onset Date Comments Patient/info Update 03/05/2011 Encounter Details Date Type Department Care Team Description 03/05/2011 Telephone [facility] Tiffany Leonard P atient/info Update Clinic Tammy BARRIENTOS [address] [address] [address] [place] [address] [phone] Social History Tobacco Use Types Packs/Day Years [...] with this plan of care.Tash Smith RN. ERTIBLE SOFA BEDSPRING TESTER documented in this encounter Plan of Treatment Not on filedocumented as of this encounter Visit Diagnoses Not on filedocumented in this encounter Care Teams Antenna Engineer Relationship Specialty Start Date End Date Tiffany Leonard MD PCP - General 04/16/01 05/23/21 documented as of this encounter
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
--- OUTSIDE RECORDS SUMMARY | 2022-02-06 21:34 | XMS_ITS | Encounter Summary ---
:1945 Author Organization [place] Address [address] [place] [address]. [place] [address] Care Team Providers Name Role Phone Tiffany Leonard MD Primary Care Provider [phone] Reason for Visit Reason Onset Date Comments Refill Request 02/16/2012 Cuauhtemoc Encounter Details Date Type Department Care Team Description 02/16/2012 MyC Refill [facility] Tiffany Leonard Refill [facility] Tammy Marinelli MD (Cozaar) [address] [address] [address] [address] [place] [address] [phone] Social History Tobacco Use Types Packs/Day Years [...] Message handled by Nurse Triage Mirian Chan ER GRADER Telephone Encounter - Batsheva Kinneythia - 02/17/2012 8:33 AM OYSTER GRADER Message from [employer] Original authorizing provider: Tiffany Leonard MD, MD Mayra Quinn would like a refill of the following medications: losartan (COZAAR) 25 MG tablet [Tiffany Leonard MD, ] [facility]erred pharmacy: [facility] Comment: Could I get a refill on this Rx - [facility] - or faxed. Thank you. 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
--- OUTSIDE RECORDS SUMMARY | 2022-02-06 21:34 | XMS_ITS | Encounter Summary ---
:1945 Author Organization [place] Address [address] [place] [address]. [place] [address] Care Team Providers Name Role Phone Tiffany Leonard MD Primary Care Provider [phone] Reason for Visit Reason Onset Date Comments Refill Request 11/27/2010 fosamax Encounter Details Date Type Department Care Team Description 11/27/2010 MyC Refill [facility] Tiffany Leonardill [facility] Tammy Marinelli MD (fosamax) [address] [address] [address] [place] [phone] [phone] Social History Tobacco Use Types Packs/Day Years [...] - 11/27/2010 1:40 PM CDT Message from [employer]: Original authorizing provider: Tiffany Leonard MD, MD Nunez Melina Maxwellemeka would like a refill of the following medications: ALENdronate (FOSAMAX) 70 MG tablet [Tiffany Leonard MD, ] Preferred pharmacy: [facility] Comment: Could you please fax the above RX to [email or web address]. I was going to fill it locally but it is now available through the pharmacy like my other prescriptions. They prefer it be sent via [facility]doctor[facility] office. Thank you. documented in this encounter Plan of Treatment Not on filedocumented as of this encounter Visit Diagnoses Diagnosis Osteoporosis, unspecified - Primary documented in this encounter Care Teams Felt Checker Relationship Specialty Start Date End Date Tiffany Leonard MD PCP - General 04/16/01 05/23/21 documented as of this encounter
--- OUTSIDE RECORDS SUMMARY | 2022-02-06 21:34 | XMS_ITS | Encounter Summary ---
:1945 Author Organization [place] Address [address] [place] [address]. [place] [address] Care Team Providers Name Role Phone Tiffany Leonard MD Primary Care Provider [phone] Reason for Visit (Routine) - Closed Specialty Diagnoses / Procedures Referred By Contact Refer red To Contact Radiology Diagnoses SCREENING UNILATERAL - DIGITAL LEFT Procedure Notes: Rout[facility] Procedures RADIOLOGY [address], [address] [place], [place] [address] Phone: Fax: Referral ID Status Reason Start Date Expiration Date Visits Requ ested Visits Authorized [id number] Closed 12/12/2011 12/11/2012 1 1 Encounter Details Date Type Department Care Team Description 12/15/2011 Hospital Encounter [facility] Tiffany Leonard [facility] MD Isis [address], [address] [facility] [address] [place] [address] [place], [place] [phone] (Wo rk) [address] [phone] Social History Tobacco Use Types Packs/Day Years [...] 0 07/31 1200 MG OR HOURS NEEDED [id number]: Bronchitis acute MONIQUE NOT PRESCRIBED not prescribed [...] Procedure Name Priority Date/Time Associated Diagnosis Comme [facility] SCREENING Routine 12/15/2011 9:54 AM Results [...] on filedocumented in this encounter Care Teams Corporate Development Analyst Relationship Specialty Start Date End Date Tiffany Leonard MD PCP - General 04/16/01 05/23/21 documented as of this encounter
--- OUTSIDE RECORDS SUMMARY | 2022-02-06 21:34 | XMS_ITS | Encounter Summary ---
:1945 Author Organization [place] Address [address] [place] [address]. [place] [address] Care Team Providers Name Role Phone Tiffany Leonard MD Primary Care Provider [phone] Reason for Visit Reason Onset Date Comments Refill Request 08/08/2010 neurontin Encounter Details Date Type Department Care Team Description 08/08/2010 MyC Refill [facility] Tiffany Leonard Refill Re [facility] Tammy Marinelli MD (neurontin) [address] [address] [address] [address] [place] [address] [phone] Social History Tobacco Use Types Packs/Day Years [...] - 08/08/2010 12:12 PM CDT Message from English Helper: Mayra J Kai would like a refill of the following medications: gabapentin (NEURONTIN) 600 MG tablet [Tiffany Leonard MD] Preferred pharmacy: [facility] in [place], [place] Comment: I received a letter from [facility] they are unable to fill this prescription at this time dueto the cadmium plater having difficulty receiving this drug. It is a new prescription that hasn't beenfilled yet. Could you call/fax a prescription to [facility] in [place] @ [phone]. documented in this encounter Plan of Treatment Not on filedocumented as of this encounter Visit Diagnoses Diagnosis Type 2 diabetes, HbA1c goal < 7% (H) - P rimary Type II or unspecified type diabetes aubrey litus without mention of complication, not stated as uncontrolled documented in this encounter Care Teams Visual Supervisor Relationship Specialty Start Date End Date Tiffany Leonard MD PCP - General 04/16/01 documented as of this encounter
--- OUTSIDE RECORDS SUMMARY | 2022-02-06 21:34 | XMS_ITS | Encounter Summary ---
:1945 Author Organization [place] Address [address] [place] [address]. [place] [address] Care Team Providers Name Role Phone Tiffany Leonard MD Primary Care Provider [phone] Reason for Visit Reason Onset Date Comments Refill Request 08/17/2011 Glucophage Medication Request 08/17/2011 request to send to [facility] Mail Order Encounter Details Date Type Department Care Team Description 08/17/2011 MyC Refill [facility] Tiffany Leonard Refill Re [facility] Tammy Marinelli MD (Glucophage); [address] [address] [address] Medication Re... [facility] [place] [id number] [phone] Social History Tobacco Use Types Packs/Day Years [...] uncontrolled documented in this encounter Care Teams Outpatient Surgery Rn Relationship Specialty Start Date End Date Tiffany Leonard MD PCP - General 04/16/01 05/23/21 documented as of this encounter
--- OUTSIDE RECORDS SUMMARY | 2022-02-06 21:34 | XMS_ITS | Encounter Summary ---
:1945 Author Organization [place] Address [address] [place] [address]. [place] [address] Care Team Providers Name Role Phone Tiffany Leonard MD Primary Care Provider [phone] Reason for Visit Reason Onset Date Comments Refill Request 10/27/2011 Accu Check strips & solution Encounter Details Date Type Department Care Team Description 10/27/2011 MyC Refill [facility] Tiffany Leonard Refill Re [facility] (Accu Clinic Tammy Marinelli MD Check strips & [address] solution) [place] [address] [phone] Social History Tobacco Use Types Packs/Day Years [...] uncontrolled documented in this encounter Care Teams Cook Mess Relationship Specialty Start Date End Date Tiffany Leonard MD PCP - General 04/16/01 05/23/21 documented as of this encounter
--- OUTSIDE RECORDS SUMMARY | 2022-02-06 21:34 | XMS_ITS | Encounter Summary ---
:1945 Author Organization [place] Address [address] [place] [address] Care Team Providers Name Role Phone Tiffany Leonard MD Primary Care Provider [phone] Reason for Visit Reason Comments ER F/U follow up to ER visit post f all in her bathroom. States is doing well and vision has improved. Encounter Details Date Type Department Care Team Description 03/11/2011 Office Visit [facility] Tiffany Leonard ASCVD (ar teriosclerotic cardiovascular disease); Clinic Tammy Marinelli MD Syncope and collapse [address] [address] [facility] [place] [address] Social History Tobacco Use Types Packs/Day [...] Comments Blood Pressure 120/66 03/11/2011 3:12 PM SEWING MACHINE OPERATOR SEMIAUTOMATIC Pulse 66 03/11/2011 3:12 PM SEWING MACHINE OPERATOR SEMIAUTOMATIC Temperature - - Respiratory Rate 15 03/11/2011 3:12 PM SEWING MACHINE OPERATOR SEMIAUTOMATIC Oxygen Saturation - - Inhaled Oxygen Concentration - - Weight 71.7 kg (158 lb) 03/11/2011 3:12 PM SEWING MACHINE OPERATOR SEMIAUTOMATIC Height 163.8 cm (5' 4.5) 03/11/2011 3:12 PM SEWING MACHINE OPERATOR SEMIAUTOMATIC Body Mass Index 26.7 03/11/2011 3:12 PM SEWING MACHINE OPERATOR SEMIAUTOMATIC documented in this encounter Progress Notes Tiffany [...] CT. MRI done 8 years ago in [place]; pt will get copy for comparison Lipids goal should be LDL<100 [place] 10-year CHD Risk Score: 20% (Diabetic) Values [...] CHD. -- Points:0 Pt with hx of MA at age 42, Diabetes; BP well controlled. Plan: MRI Brain w/o contrast, MRI Angiogram head w/o contrast* 780.2 Syncope and collapse Comment: fall in bathroom 02/28/2011; Plan: MRI Angiogram head w/o contrast* Tiffany Leonard MD Internal Medicine electronically signed 25 minutes is spent with patient, over 50% of that time spent providing counselling, discussing and reviewing meds and potential side effects. NG MACHINE OPERATOR SEMIAUTOMATIC documented in this encounter Nursing Notes 03/11/2011 [...] collapse documented in this encounter Care Teams Siebel Solution Architect Relationship Specialty Start Date End Date Tiffany Leonard MD PCP - General 04/16/01 05/23/21 documented as of this encounter
--- OUTSIDE RECORDS SUMMARY | 2022-02-06 21:34 | XMS_ITS | Encounter Summary ---
:1945 Author Organization [place] Address [address] [place] [address]. [address] Care Team Providers Name Role Phone Tiffany Leonard MD Primary Care Provider [phone] Jr Landeros MD Primary Care Provider [phone] Jr Landeros MD Unavailable Reason for Visit Reason Onset Date Comments Refill Request 08/26/2010 Encounter Details Date Type Department Care Team Description 08/26/2010 MyC Refill [facility] Tiffany Leonard [place], Refill Request Cindy [address]RI[address] [address] [place] [address] [place] [address] [phone] (Wo rk) Social History Tobacco Use Types [...] on filedocumented in this encounter Care Teams Kiln Burner Helper Relationship Specialty Start Date End Date Tiffany Leonard MD PCP - General 04/16/01 05/23/21 Jr Landeros MD PCP - General Internal Medicine 05/24/21 [address], [place] [id number] Jr Landeros MD Assigned PCP 05/26/21 [address] [id number] documented as of this encounter
--- OUTSIDE RECORDS SUMMARY | 2022-02-06 21:35 | XMS_ITS | Encounter Summary ---
:1945 Author Organization [place] Address [address] [place] [address] Care Team Providers Name Role Phone Tiffany Leonard MD Primary Care Provider [phone] Encounter Details Date Type Department Care Team Description 07/21/2010 Orders Only [facility] Tiffayn Leonard Type 2 di abetes, HbA1C goal < 7% (H); Clinic Cindy Marinelli MD Hyperlipidemia LDL goal <100 [address] [address] [address] [facility], [facility] [id number] Social History Tobacco Use Types Packs/Day Years [...] hyperlipidemia documented in this encounter Care Teams Tree Doctor Relationship Specialty Start Date End Date Tiffany Leonard MD PCP - General 04/16/01 05/23/21 documented as of this encounter
--- OUTSIDE RECORDS SUMMARY | 2022-02-06 21:35 | XMS_ITS | Encounter Summary ---
:1945 Author Organization [place] Address [address] [place] [address]. [place] [address] Care Team Providers Name Role Phone Tiffany Leonard MD Primary Care Provider [phone] Reason for Visit Reason Onset Date Comments Chronic Care Conference Provider Overview 05/28/2010 Encounter Details Date Type Department Care Team Description 05/28/2010 Telephone [facility] Tiffany Leonard Chronic C are Clinic Tammy Marinelli MD Conference Provider [address] [address] [address] Overview [place] [address] [phone] Social History Tobacco Use Types Packs/Day Years [...] filedocumented in this encounter Care Teams Executive Associate Relationship Specialty Start Date End Date Tiffany Leonard MD PCP - General 04/16/01 documented as of this encounter
--- OUTSIDE RECORDS SUMMARY | 2022-02-06 21:35 | XMS_ITS | Encounter Summary ---
:1945 Author Organization [place] Address [address] [place] [address] Care Team Providers Name Role Phone Fernanda Fernandez MD Primary Care Provider [phone] Reason for Visit Reason Comments Physical Mammo 07/08 neg at [facility], pt is going to [place] in [place] & will have Mammo & Colon there at that time, PT IS FASTING Refill Request Pt needs refills Encounter Details Date Type Department Care Team Description 06/05/2009 [facility] Routine G eneral Medical Examination at a Health Care Facility (Primary Dx); Clinic Tammy Marinelli MD Unspecified Cardiovascular Disease; [address] [address] [address] Unspecified Osteoporosis; [address] 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 Physical Mammo 07/08 neg at [facility], pt is going to [place] in June & will have Mammo & [...] no All Histories reviewed and updated in [facility]. ROS: C: NEGATIVE for fever, chills, [...] colonosocpy- set to have exam done at [facility] : NEGATIVE for unusual urinary or vaginal symptoms. M: NEGATIVE for significant arthralgias or myalgia Hem/Onc: past breast cancer; due for mammo- will have done at [facility] N: NEGATIVE for weakness, dizziness or paresthesias [...] A.M.A. COMPREHENSIVE MET.PANEL, HGB, HEMOGLOBIN A1C Comment: ROLLER DIE CUTTING MACHINE OPERATOR exam including Pap and mammo scheduled to be done at [facility] per pt. 429.2 Unspecified Cardiovascular Disease [...] HX OF BREAST MALIGNANCY Plan: mammo- at [facility]; pt to request report sent to [facility]; right mastectomy several years ago. Comment: no longer on Arimedex; Dx 2001; will be release from [facility]. 706.1AN Acne Plan: DIFFERIN 0.1 % EX [...] ASCVD but need PPI otherwise, cannot tolerate. [facility] has recommended name brand PPI 272.4CL [...] with: Physical - Mammo 07/08 neg at [facility], pt is going to [place] in June & will have Mammo & [...] Time Signature Creatinine 163 mg/dL [facility] Urine [facility] Albumin Urine 67 mg/L [facility] mg/L [facility] Albumin Urine 41.10 (H) 0 - 20 [facility] mg/g Cr mg/g Cr [facility] Specimen Anatomical Collection Method Collection Time Receive d Time (Source) Location / / Volume Laterality 06/05/2009 10:33 06/05/2009 AM CDT 10:38 AM CDT Fernanda Fernandez MD LABORATORY Performing Organization Address City/State/ZIP Code Phon e Number [facility] [address] [place], [place] [id number] [place] [address] LABS (ABNORMAL) HEMOGLOBIN A1C (06/05/2009 10:32 AM CDT) P athologist Signature Hemoglobin A1C 7.9 (H) 4.3 - 6.0 [place] % [facility] Specimen Anatomical Collection Method Collection Time Receive d Time (Source) Location / / Volume Laterality 06/05/2009 10:32 06/05/2009 AM CDT 10:37 AM CDT Fernanda Fernandez MD LABORATORY Performing Organization Address City/[facility]/ZIP Code Phon e Number [facility] [address] [place], [place] [address] [facility] HGB (06/05/2009 10:32 AM CDT) athologist Signature Hemoglobin 14.4 11.7 - 15.7 [place] g/dL [facility] Specimen Anatomical Collection Method Collection Time Receive d Time (Source) Location / / Volume Laterality 06/05/2009 10:32 06/05/2009 AM CDT 10:37 AM CDT Fernanda Fernandez MD LABORATORY Performing Organization Address City/[facility] Code Phon e Number [facility] [address] [place], [place] [address] [facility] LAB (ABNORMAL) A.M.A. COMPREHENSIVE MET.PANEL (06/05/2009 10:32 AM CDT) athologist Signature Sodium 141 133 - 144 [place] mmol/L [facility] Potassium 4.4 3.4 - 5.3 [place] mmol/L [facility] Chloride 101 94 - 109 [place] mmol/L [facility] Carbon Dioxide 30 20 - 32 [place] mmol/L [facility] Anion Gap 10 6 - 17 [place] mmol/L [facility] Glucose 145 (H) 60 - 99 [place] mg/dL [facility] Urea Nitrogen 12 7 - 30 [place] mg/dL [facility] Creatinine 0.65 0.52 - [facility] 1.04 mg/dL [facility] Comment: New IDMS-traceable calibration beginning 07/01/07 GFR Estimate >90 >60 mL/min/1.7m2 [place] E [facility] GFR Estimate If Black >90 >60 mL/min/1.7m2 [facility] Calcium 9.2 8.5 - 10.4 mg/dL [facility] Bilirubin Total 0.6 0.2 - 1.3 mg/dL [facility] Albumin 4.2 3.3 - 4.9 g/dL [facility] Comment: Reference range changed on 11/01. Protein Total 7.7 6.8 - 8.8 g/dL [place] EA [facility] Comment: As of 07, reference range reflects plasma specimen type. Alkaline Phosphatase 76 40 - 150 U/L [facility] ALT 21 0 - 50 U/L [facility] CLIN IC LAB AST 31 0 - 45 U/L [facility] IC LAB Specimen Anatomical Collection Method Collection Time Receive d Time (Source) Location / / Volume Laterality 06/05/2009 10:32 06/05/2009 AM CDT 10:37 AM CDT Fernanda Fernandez MD LABORATORY Performing Organization Address City/[facility]/ZIP Code Phon e Number [facility] [address] [place] [address] [facility] LAB (ABNORMAL) LIPID PANEL, REFLEX TO DIRECT LDL (06/05/2009 10:32 AM CDT) athologist Signature Cholesterol 184 0 - 200 [facility] mg/dL CLINIC LAB Comment: LDL Cholesterol is the primary guide to therapy. The NCEP recommends further evaluation of: patients with cholesterol <200 mg/dL if additional risk factors are present, cholesterol >240 mg/dL, triglycerides >150 mg/dL, or HDL <40 mg/dL. Triglycerides 316 (H) 0 - 150 mg/dL [facility] HDL Cholesterol 27 (L) 50 - 110 mg/dL [facility] LDL Cholesterol Calculated 94 0 - 129 mg/dL [facility] Comment: LDL Cholesterol is the primary guide to therapy: LDL-cholesterol goal in high risk patients is <100 mg/dL and in very high risk patients is <70 mg/dL. VLDL-Cholesterol 63 (H) 0 - 30 mg/dL [facility] LAB Cholesterol/HDL Ratio 6.8 (H) 0.0 - 5.0 [facility] LAB Specimen Anatomical Collection Method Collection Time Receive d Time (Source) Location / / Volume Laterality 06/05/2009 10:32 06/05/2009 AM CDT 10:37 AM CDT Fernanda Fernandez MD LABORATORY Performing Organization Address City/[facility]/ZIP Code Phon e Number [facility] [address] [place] [address] [facility] TSH W/FREE T4 REFLEX (06/05/2009 10:32 AM CDT) P athologist Signature TSH 1.17 0.4 - 5.0 [facility] mU/L CLINIC LAB Specimen Anatomical Collection Method Collection Time Receive d Time (Source) Location / / Volume Laterality 06/05/2009 10:32 06/05/2009 AM CDT 10:37 AM CDT Fernanda Fernandez MD LABORATORY Performing Organization Address City/State/ZIP Code Phon e Number [facility] [address] [place] [address] [facility] LAB (ABNORMAL) 25 HYDROXYVITAMIN D2 & D3 (06/05/2009 10:32 AM CDT) Component Value Ref Test Analysis Performed At [facility] gist Range Method Time Signature 25 OH Vit D2 <5 ug/L [facility] LABS 25 OH Vit D3 24 ug/L [facility]S 25 OH Vit D <29 30 - 75 [facility] total Season, race, dietary intake, and treatm ent affect the concentration of ug/L [facility] 74-bprozlx-Mblmdbi D. Values may decrease during ye er months and increase CAMPUS LABS during summer months. Values less than 30 ug/L may indicate Vitamin D deficiency. (L) Specimen Anatomical Collection Method Collection Time Receive d Time (Source) Location / / Volume Laterality 06/05/2009 10:32 06/05/2009 AM CDT 10:37 AM CDT Fernanda Fernandez MD LABORATORY Performing Organization Address City/State/ZIP Code Phon e Number [facility] [address] [place] [address] [facility] LABS A THIN LAYER PAP SCREEN (06/05/2009 12:00 AM CDT) Component Value Ref Test Analysis Performed At [facility] gist Range Method Time Signature PAP NIL COPATH Copath Report COPATH Patient Name: ORLIN NUNEZ MR#: [id number] Specimen #: [id number] Collected: 06/05/2009 Received: 06/06/2009 Reported: 06/07/2009 14:26 Ordering Phy(s): FRENANDA FERNANDEZ SPECIMEN/STAIN PROCESS: Pap thin layer prep screening (Sure[facility]) ? Pap-Cyto x 1, Reflex HPV x 1 SOURCE: Cervical, endocervical ---- Pap thin layer prep screening ([facility]) SPECIMEN ADEQUACY: Satisfactory for evaluation. -Transformation zone component absent. CYTOLOGIC INTERPRETATION: Negative for Intraepithelial Lesion or Malignancy Electronically signed out by: TOMMY Cain (ASCP) Processed and screened at [facility] CLINICAL HISTORY: Post Menopausal Complete Hysterectomy, TESTING LAB LOCATION: [address] ??[address] COLLECTION SITE: Client: ??[facility] Location: [facility] (R) [...] uncontrolled documented in this encounter Care Teams Printing Screen Assembler Relationship Specialty Start Date End Date Fernanda Fernandez MD PCP - General 04/16/01 05/23/21 documented as of this encounter
--- OUTSIDE RECORDS SUMMARY | 2022-02-06 21:35 | XMS_ITS | Encounter Summary ---
:1945 Author Organization [place] Address [address] [place] [address]. [place] [address] Care Team Providers Name Role Phone Tiffany Leonard MD Primary Care Provider [phone] Reason for Visit Reason Onset Date Comments Results 06/30/2008 lab results Encounter Details Date Type Department Care Team Description 06/16/2008 Telephone [facility] Tiffany Leonard Results ( lab results) Clinic Darrian Marinelli MD [address] [place] [address] [facility] [address] [place] [address] [place], [place] [phone] (Wo rk) [address] [phone] Social History Tobacco Use Types Packs/Day Years [...] a copy of results to take to [place] with her, so this nurse will send this out. She was advised that PCP would contact her with recommendations. documented in this encounter Plan of Treatment Not on filedocumented as of this encounter Visit Diagnoses Not on filedocumented in this encounter Care Teams Financial Reporting Accountant Relationship Specialty Start Date End Date Tiffany Leonard MD PCP - General 04/16/01 05/23/21 documented as of this encounter
--- OUTSIDE RECORDS SUMMARY | 2022-02-06 21:35 | XMS_ITS | Encounter Summary ---
:1945 Author Organization [place] Address [address] [place] [address]. [place] [address] Care Team Providers Name Role Phone Tiffany Leonard MD Primary Care Provider [phone] Reason for Referral - Closed Specialty Diagnoses / Procedures Referred By Contact Refer red To Contact Diagnoses Type 2 diabetes, HbA1c goal < 7% (H) [place] [address] [address] [address] Referral ID Status Reason Start Date Expiration Date Visits Requ ested Visits Authorized [id number] Closed 08/02/2009 03/01/2011 1 1 Reason for Visit Reason Comments Results follow up on labs and elevat ed glucose. Encounter Details Date Type Department Care Team Description [facility]/02[facility] 2 Di abetes, HbA1c Goal < 7% (H) (Primary Dx); Clinic Tammy Marinelli MD Microalbuminuria; [address] [address] [address] Hyperlipidemia LDL Goal <[address] [place] [phone] Social History Tobacco Use Types Packs/Day Years [...] dinner; reassess in 3 months May call [facility] [phone] to set up Nurse visit with Giselle [...] CPDR ONE DAILY- PAUL per Gastroenterology at [facility] ??? DIFFERIN 0.1 % EX GEL APPLY TO AFFECTED AREA ONCE DAILY BEFORE BEDTIME ??? CHOLECALCIFEROL 16683 UNIT OR CAPS 2 CAPSULE DAILY ??? MUCINEX MAXIMUM STRENGTH 1200 MG OR TB12 1 TABLET EVERY 12 HOURS NEEDED ??? ASPIRIN 81 MG OR TABS 1 TABLET DAILY Histories reviewed and updated in [facility]. REVIEW OF SYSTEMS: C: NEGATIVE for fatigue, [...] hyperlipidemia documented in this encounter Care Teams Carpenter Cradle And Dolly Relationship Specialty Start Date End Date Tiffany Leonard MD PCP - General 04/16/01 05/23/21 documented as of this encounter
--- OUTSIDE RECORDS SUMMARY | 2022-02-06 21:35 | XMS_ITS | Encounter Summary ---
:1945 Author Organization [place] Address [address] [place] [address] Care Team Providers Name Role Phone Tiffany Leonard MD Primary Care Provider [phone] Encounter Details Date Type Department Care Team Description 07/21/2007 Abstract [facility] Abstract, Provid er LABS FROM [facility] [address] [place] [address] Social History Tobacco Use Types Packs/Day [...] . documented in this encounter Results TRIGLYCERIDES [[id number]] (07/21/2007) P athologist Signature Triglycerides 188@ mg/dL [facility]YS Provider Abstract LABORATORY Performing Organization Address [facility] Phon e Number MISYS HDL CHOLESTEROL [[id number]] (07/21/2007) P athologist Signature HDL Cholesterol 31@ mg/dL MISYS Provider Abstract LABORATORY Performing Organization Address [facility] Phon e Number MISYS LDL-CHOLESTEROL [[id number]] (07/21/2007) P athologist Signature LDL Cholesterol 103@ mg/dL M[facility] Calculated Provider Abstract LABORATORY Performing Organization Address [facility] Phon e Number [facility] CHOLESTEROL [[id number]] (07/21/2007) P athologist Signature Cholesterol 172@ 115 - 199 [facility] mg/dL Provider Abstract LABORATORY Performing Organization Address [facility] Phon e Number [facility] CREATININE [[id number]] (07/21/2007) P athologist Signature Creatinine 0.6@ mg/dL MISYS Provider Abstract LABORATORY Performing Organization Address [facility] Phon e Number M[facility] AST [[id number]] (07/21/2007) P athologist Signature AST 16@ U/L MISYS Provider Abstract LABORATORY Performing Organization Address [facility] Phon e Number M[facility]YS ABSTRACT MAMMO-NO CHARGE (07/21/2007) Anatomical Region Laterality Modality Other Narrative This result has an attachment that is no t available. Provider Abstract GENERAL IMAGING documented in this encounter Visit Diagnoses Diagnosis DIAGNOSIS NOT YET DEFINED - Primary documented in this encounter Care Teams Forestry Workers Relationship Specialty Start Date End Date Tiffany Leonard MD PCP - General 04/16/01 05/23/21 documented as of this encounter
--- OUTSIDE RECORDS SUMMARY | 2022-02-06 21:35 | XMS_ITS | Encounter Summary ---
:1945 Author Organization [place] Address [address] [place] [address] Care Team Providers Name Role Phone Tiffany Leonard MD Primary Care Provider [phone] Encounter Details Date Type Department Care Team Description 05/30/2010 Orders Only [facility] [place] roalbuminuria; [facility] Vitamin D deficiencies; [address] Type 2 diabetes, HbA1C goal < 7% (H); [place] [address] Hyperlipidemia LDL goal <100 ; [phone] ASCVD Social History Tobacco Use Types Packs/Day [...] athologist Signature TSH 1.87 0.4 - 5.0 [facility] mU/L CLINIC LAB Specimen Anatomical Collection Method Collection Time Receive d Time (Source) Location / / Volume Laterality Blood specimen 05/30/2010 8:03 AM 011 8:04 (specimen) CDT AM CDT Tiffany Leonard MD LAB - BLOOD ORDERABLES Performing Organization Address City/State/ZIP Code Phon e Number [facility] [address] [place] [address] [facility] LAB (ABNORMAL) Comprehensive metabolic panel (05/30/2010 8:03 AM CDT) athologist Signature Sodium 146 (H) 133 - 144 [place] mmol/L [facility] LAB Potassium 4.2 3.4 - 5.3 [place] mmol/L [facility] Chloride 105 94 - 109 [place] mmol/L [facility] Carbon Dioxide 31 20 - 32 [place] mmol/L [facility] Anion Gap 11 6 - 17 [place] mmol/L [facility] Glucose 92 60 - 99 [place] mg/dL [facility] Urea Nitrogen 15 7 - 30 [facility] mg/dL [facility] Creatinine 0.63 0.52 - [facility] 1.04 mg/dL [facility] GFR Estimate >90 >60 [facility] mL/min/1.7 [facility] m2 LAB GFR Estimate If >90 >60 [place] Black mL/min/1.7 [facility] m2 LAB Calcium 9.6 8.5 - 10.4 [facility] mg/dL [facility] Bilirubin Total 0.5 0.2 - 1.3 [place] mg/dL [facility] LAB Albumin 4.2 3.3 - 4.9 [place] g/dL [facility] LAB Comment: Reference range changed on 11/01. Protein Total 7.1 6.8 - 8.8 g/dL [place] [facility] LAB Comment: As of 07, reference range reflects plasma specimen type. Alkaline Phosphatase 58 40 - 150 U/L [facility] LAB ALT 16 0 - 50 U/L [place] [facility] AST 20 0 - 45 U/L [facility] CLIN IC LAB Specimen Anatomical Collection Method Collection Time Receive d Time (Source) Location / / Volume Laterality Blood specimen 05/30/2010 8:03 AM 011 8:04 (specimen) CDT AM CDT Tiffany Leonard MD LAB - BLOOD ORDERABLES Performing Organization Address City/[facility]/ZIP Code Phon e Number [facility] [address] [place] [address] [facility] LAB Hemoglobin A1c (05/30/2010 8:03 AM CDT) athologist Signature Hemoglobin A1C 5.8 4.3 - 6.0 [place] % [facility] LAB Specimen Anatomical Collection Method Collection Time Receive d Time (Source) Location / / Volume Laterality Blood specimen 05/30/2010 8:03 AM 011 8:04 (specimen) CDT AM CDT Tiffany Leonard MD LAB - BLOOD ORDERABLES Performing Organization Address City/[facility] Phon e Number [facility] [address] [place], [place] [address] [facility] LAB (ABNORMAL) Lipid panel reflex to direct LDL (05/30/2010 8:03 AM CDT) athologist Signature Cholesterol 191 0 - 200 [facility] mg/dL CLINIC LAB Comment: LDL Cholesterol is the primary guide to therapy. The NCEP recommends further evaluation of: patients with cholesterol <200 mg/dL if additional risk factors are present, cholesterol >240 mg/dL, triglycerides >150 mg/dL, or HDL <40 mg/dL. Triglycerides 210 (H) 0 - 150 mg/dL [facility] LAB HDL Cholesterol 34 (L) 50 - 110 mg/dL [facility] LDL Cholesterol Calculated 115 0 - 129 mg/dL [facility] Comment: LDL Cholesterol is the primary guide to therapy: LDL-cholesterol goal in high risk patients is <100 mg/dL and in very high risk patients is <70 mg/dL. VLDL-Cholesterol 42 (H) 0 - 30 mg/dL [facility] LAB Cholesterol/HDL Ratio 5.6 (H) 0.0 - 5.0 [facility] LAB Specimen Anatomical Collection Method Collection Time Receive d Time (Source) Location / / Volume Laterality Blood specimen 05/30/2010 8:03 AM 011 8:04 (specimen) CDT AM CDT Tiffany Leonard MD LAB - BLOOD ORDERABLES Performing Organization Address City/[facility]/ZIP Code Phon e Number [address] [address] [facility] LAB Vitamin D deficiency screening (05/30/2010 8:03 AM CDT) Component Value Ref Test Analysis Performed At [facility] Range Method Time Signature 25 [place] Vit D2 <5 ug/L [facility] LABS 25 [place] Vit D3 46 ug/L [facility] LABS 25 [place] Vit D <51 30 - 75 [facility] total Season, race, dietary intake, and treatm ent affect the concentration of ug/L [facility] 06-zpaosmd-Pwwediv D. Values may decrease during ye er [...] Phon e Number [facility] [address] [place] [address] [facility] LABS (ABNORMAL) MICROALBUMIN (INC URINE CREAT) (05/30/2010 8:03 AM CDT) Patholo gist Method Time Signature Creatinine 158 mg/dL [facility] Urine [facility] LABS Albumin Urine 46 mg/L [facility] mg/L [facility] LABS Albumin Urine 29.11 (H) 0 - 20 [facility] mg/g Cr mg/g Cr [facility] LABS Specimen Anatomical Collection Method Collection Time Receive d Time (Source) Location / / Volume Laterality 05/30/2010 8:03 AM 1 8:04 CDT AM CDT Tiffany Leonard MD LABORATORY Performing Organization Address City/State/[facility] Code Phon e Number [facility] [address] [place], [place] [id number] [place] [address] LABS documented in this encounter Visit Diagnoses Diagnosis Microalbuminuria Proteinuria Vitamin D deficiencies Unspecified vitamin D deficiency Type 2 diabetes, HbA1c goal < 7% (H) Type II or unspecified type diabetes aubrey litus without mention of complication, not stated as uncontrolled Hyperlipidemia LDL goal <100 Other and unspecified hyperlipidemia ASCVD Unspecified cardiovascular disease documented in this encounter Care Teams Obstetrics Tech Relationship Specialty Start Date End Date Tiffany Leonard MD PCP - General 04/16/01 05/23/21 documented as of this encounter
--- OUTSIDE RECORDS SUMMARY | 2022-02-06 21:35 | XMS_ITS | Encounter Summary ---
:1945 Author Organization [place] Address [address] [place] [address]. [place] [address] Care Team Providers Name Role Phone Tiffany Leonard MD Primary Care Provider [phone] Reason for Visit Reason Onset Date Comments Refill Request 08/15/2009 test strip clarifica tion Encounter Details Date Type Department Care Team Description 08/15/2009 Refill [facility] Tiffany Leonard R efmariela Request (test Clinic [place] BARRIENTOS strip clarification) [address] [place] [address] [facility] [address] [place] [address] [place], [place] [phone] (Wo rk) [address] [phone] Social History Tobacco Use Types Packs/Day Years [...] uncontrolled documented in this encounter Care Teams Structural Biologist Relationship Specialty Start Date End Date Tiffany Leonard MD PCP - General 04/16/01 05/23/21 documented as of this encounter
--- OUTSIDE RECORDS SUMMARY | 2022-02-06 21:35 | XMS_ITS | Encounter Summary ---
:1945 Author Organization [place] Address [address] [place] [address] Care Team Providers Name Role Phone Tiffany Leonard MD Primary Care Provider [phone] Encounter Details Date Type Department Care Team Description 07/05/2008 Orders Only [facility] Tiffany Leonard DIAGNOSIS NOT YET Clinic [place] Marinelli MD DEFINED (Primary Dx) [address] [address] [place] [address] [address] [place] [address] Social History Tobacco Use Types [...] Procedure Name Priority Date/Time Associated Diagnosis Comme [facility] DEXA BONE DENSITY, >=1 Routine 07/05/2008 DIAGNOSIS [...] Primary documented in this encounter Care Teams Stock Feeder Relationship Specialty Start Date End Date Tiffany Leonard MD PCP - General 04/16/01 documented as of this encounter
--- OUTSIDE RECORDS SUMMARY | 2022-02-06 21:35 | XMS_ITS | Encounter Summary ---
:1945 Author Organization [place] Address [address] [place] [address] Care Team Providers Name Role Phone Tiffany Leonard MD Primary Care Provider [phone] Encounter Details Date Type Department Care Team Description 09/30/2006 Orders Only [facility] Tiffany Leonard OSTEOPORO SIS NOS Clinic [place] Marinelli MD (Primary Dx) [address] [address] [place] [address] [address] [place] [address] Social History Tobacco Use Types Packs/Day [...] Primary documented in this encounter Care Teams Die Welder Relationship Specialty Start Date End Date Tiffany Leonard MD PCP - General 04/16/01 05/23/21 documented as of this encounter
--- OUTSIDE RECORDS SUMMARY | 2022-02-06 21:35 | XMS_ITS | Encounter Summary ---
:1945 Author Organization [place] Address [address] [place] [address] Care Team Providers Name Role Phone Tiffany Leonard MD Primary Care Provider [phone] Encounter Details Date Type Department Care Team Description 11/06/2009 Orders Only [facility] Type 2 Valeria betes, HbA1c Goal < 7% (H); Clinic [place] Hyperlipide bren LDL Goal <100; Laboratory Microalbuminuria [address] [place] [address] Social History Tobacco Use Types Packs/Day [...] LDL the resul ts Goal <100 section. [facility] COMPREHENSIVE Routine 11/06/2009 8:28 AM Type 2 Diabetes, Results for this METABOLIC PANEL CDT HbA1c Goal < 7% (H) procedure are in Hyperlipidemia LDL the resul ts Goal <100 section. [facility] GLYCATED Routine 11/06/2009 8:28 AM Type 2 Diabetes, Resul ts for this HEMOGLOBIN CDT HbA1c Goal < 7% (H) procedur e are in the results section. [facility] ALBUMIN URINE (INC Routine 11/06/2009 8:28 AM Type 2 Diabe farhat, Results for this CREAT) CDT HbA1c Goal < 7% (H) procedure are in Microalbuminuria the results section. documented in this encounter Results (ABNORMAL) HEMOGLOBIN A1C (11/06/2009 8:28 AM CDT) athologist Signature Hemoglobin A1C 6.2 (H) 4.3 - 6.0 [place] % [facility] LAB Specimen Anatomical Collection Method Collection Time Receive d Time (Source) Location / / Volume Laterality 11/06/2009 8:28 AM 201 0 8:29 CDT AM CDT Tiffany Leonard MD LABORATORY Performing Organization Address City/State/ZIP Code Phon e Number [facility] [address] [place] [address] [facility] LAB A.M.A. COMPREHENSIVE MET.PANEL (11/06/2009 8:28 AM CDT) athologist Signature Sodium 142 133 - 144 [place] [facility] mmol/L CLINIC LAB Potassium 4.0 3.4 - 5.3 [place] [facility] mmol/L CLINIC LAB Chloride 102 94 - 109 [place] [facility] mmol/L CLINIC LAB Carbon Dioxide 30 20 - 32 [place] [facility] mmol/L CLINIC LAB Anion Gap 9 6 - 17 [place] [facility] mmol/L CLINIC LAB Glucose 94 60 - 99 [place] [facility] mg/dL CLINIC LAB Urea Nitrogen 14 7 - 30 [place] [facility] mg/dL CLINIC LAB Creatinine 0.70 0.52 - [place] [facility] 1.04 mg/dL CLINIC LAB Comment: New IDMS-traceable calibration beginning 07/01/07 GFR Estimate 84 >60 mL/min/1.7m2 [place] [facility] LAB GFR Estimate If Black >90 >60 mL/min/1.7m2 [facility] LAB Calcium 9.2 8.5 - 10.4 mg/dL [place] [facility] LAB Bilirubin Total 0.6 0.2 - 1.3 mg/dL [facility] LAB Albumin 3.9 3.3 - 4.9 g/dL [place] [facility] LAB Comment: Reference range changed on 11/01. Protein Total 7.2 6.8 - 8.8 g/dL [facility] LAB Comment: As of 07, reference range reflects plasma specimen type. Alkaline Phosphatase 63 40 - 150 U/L [facility] EW [facility] CL[facility] LAB ALT 18 0 - 50 U/L [facility] CLIN IC LAB AST 26 0 - 45 U/L [facility] CLIN IC LAB Specimen Anatomical Collection Method Collection Time Receive d Time (Source) Location / / Volume Laterality 11/06/2009 8:28 AM 0 8:29 CDT AM CDT Tiffany Leonard MD LABORATORY Performing Organization Address City/[facility]/ZIP Code Phon e Number [facility] [address] [place] [address] [facility] LAB MICROALBUMIN (INC URINE CREAT) (11/06/2009 8:28 AM CDT) athologist Signature Creatinine 41 mg/dL [facility] Urine CAMPUS LABS Albumin Urine 8 mg/L [facility] mg/L [place] [facility]S Albumin Urine 19.51 0 - 20 [facility] mg/g Cr mg/g Cr CAMPUS LABS Specimen Anatomical Collection Method Collection Time Receive d Time (Source) Location / / Volume Laterality 11/06/2009 8:28 AM 0 8:29 CDT AM CDT Tiffany Leonard MD LABORATORY Performing Organization Address City/State/ZIP Code Phon e Number [address] [address] [facility] LABS (ABNORMAL) LIPID PANEL, REFLEX TO DIRECT LDL (11/06/2009 8:28 AM CDT) P athologist Signature Cholesterol 164 0 - 200 [facility] mg/dL CLINIC LAB Comment: LDL Cholesterol is the primary guide to therapy. The NCEP recommends further evaluation of: patients with cholesterol <200 mg/dL if additional risk factors are present, cholesterol >240 mg/dL, triglycerides >150 mg/dL, or HDL <40 mg/dL. Triglycerides 273 (H) 0 - 150 mg/dL [facility] LAB HDL Cholesterol 28 (L) 50 - 110 mg/dL [facility] LDL Cholesterol Calculated 81 0 - 129 mg/dL [facility] LAB Comment: LDL Cholesterol is the primary guide to therapy: LDL-cholesterol goal in high risk patients is <100 mg/dL and in very high risk patients is <70 mg/dL. VLDL-Cholesterol 55 (H) 0 - 30 mg/dL [place] [facility] LAB Cholesterol/HDL Ratio 5.8 (H) 0.0 - 5.0 [facility] LAB Specimen Anatomical Collection Method Collection Time Receive d Time (Source) Location / / Volume Laterality 11/06/2009 8:28 AM 0 8:29 CDT AM CDT Tiffany Leonard MD LABORATORY Performing Organization Address City/State/ZIP Code Phon e Number [address] [address] [facility] LAB documented in this encounter Visit Diagnoses Diagnosis Type 2 diabetes, HbA1c goal < 7% (H) Type II or unspecified type diabetes aubrey litus without mention of complication, not stated as uncontrolled Hyperlipidemia LDL goal <100 Other and unspecified hyperlipidemia Microalbuminuria Proteinuria documented in this encounter Care Teams Idea Man Relationship Specialty Start Date End Date Tiffany Leonard MD PCP - General 04/16/01 documented as of this encounter
--- OUTSIDE RECORDS SUMMARY | 2022-02-06 21:35 | XMS_ITS | Encounter Summary ---
:1945 Author Organization [place] Address [address] [place] [address]. [place] [address] Care Team Providers Name Role Phone Tiffany Leonard MD Primary Care Provider [phone] Encounter Details Date Type Department Care Team Description 10/23/2006 Operative Report Lora Aguilar MD (Puttier) [place] OPH[facility] [address] AST SURG [address] [facility] [address] [place] [address] (Wo rk) Social History Tobacco Use Types Packs/Day Years Used Date Smoking Tobacco: Former Cigarettes Quit : 05/14/1988 Alcohol Use Standard Drinks/Week Comments No 0 (1 standard drink = 0.6 oz pure alcoho l) Sex Assigned at Date Recorded Female 05/22/2021 3:03 PM CDT documented as of this encounter Progress Notes Lora Aguilar - 11/06/2006 11:12 AM CDT FINAL 1st Central Office Mechanic: 2nd Central Office Mechanic: PREOPERATIVE DIAGNOSIS: 1. Bilateral upper eyelid ptosis. [...] lg Name: ORLIN NUNEZ MRN: [id number] Account: [id number] : 1945 Procedure Date: 10/23/2006 Document: [id number] documented in this encounter Plan of Treatment Not on filedocumented as of this encounter Visit Diagnoses Not on filedocumented in this encounter Care Teams Data Warehousing Specialist Relationship Specialty Start Date End Date Tiffany Leonard MD PCP - General 04/16/01 05/23/21 documented as of this encounter
--- OUTSIDE RECORDS SUMMARY | 2022-02-06 21:35 | XMS_ITS | Encounter Summary ---
:1945 Author Organization [place] Address [address] [place] [address] Care Team Providers Name Role Phone Tiffany Leonard MD Primary Care Provider [phone] Reason for Visit Reason Comments Diabetes Education Encounter Details Date Type Department Care Team Description 08/20/2009 Office Visit [facility] Shauna Lopes DM w/o Complication CLINIC XX RESIGNED XX Type II, Uncontrolled [place], [place] (Primary Dx) [address] Social History Tobacco [...] up: I will follow up with my slitter and rewinder: At classes documented in this encounter Progress [...] Primary documented in this encounter Care Teams Barge Master Relationship Specialty Start Date End Date Tiffany Leonard MD PCP - General 04/16/01 05/23/21 documented as of this encounter
--- OUTSIDE RECORDS SUMMARY | 2022-02-06 21:35 | XMS_ITS | Encounter Summary ---
:1945 Author Organization [place] Address [address] [place] [address] Care Team Providers Name Role Phone Tiffany Leonard MD Primary Care Provider [phone] Reason for Visit Reason Comments Diabetes follow up Chronic Care Conference Provider Overview will need fo llow up labs in 3 months; due to need for med adjustments to meet treatment goals Encounter Details Date Type Department Care Team Description 05/30/2010 Office Visit [facility] Tiffany Leonard Type 2 di abetes, HbA1C goal < 7% (H) (Primary Dx); Clinic Tammy Marinelli MD Gastritis; [address] 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
--- OUTSIDE RECORDS SUMMARY | 2022-02-06 21:35 | XMS_ITS | Encounter Summary ---
:1945 Author Organization [place] Address [address] [place] [address]. [place] [address] Care Team Providers Name Role Phone Tiffany Leonard MD Primary Care Provider [phone] Reason for Visit Reason Onset Date Comments Prior Authorization 08/24/2009 prevacid Encounter Details Date Type Department Care Team Description 08/24/2009 Telephone [facility] Tiffany Leonard Prior [facility] Tammy Marinelli MD (prevacid) [address] [address] [place] [address] [phone] Social History Tobacco Use Types Packs/Day Years [...] [facility] [place] [facility]. Pt states she [...] to pursue prior auth through [facility] [place]. Rakel Varghese RN Telephone Encounter - Tiffany Leonard - 08/29/2009 3:35 PM CDT Please check to see what else pt has been on . Pt was given current Rx from GI at [place]; they may be able to get PA [...] # Form in prior auth folder at [facility] b Will await approval or denial. Rakel Varghese RN documented in this encounter Plan of Treatment Not on filedocumented as of this encounter Visit Diagnoses Not on filedocumented in this encounter Care Teams Stringer Up Soldering Machine Relationship Specialty Start Date End Date Tiffany Leonard MD PCP - General 04/16/0105/23/22 documented as of this encounter
--- OUTSIDE RECORDS SUMMARY | 2022-02-06 21:35 | XMS_ITS | Encounter Summary ---
:1945 Author Organization [place] Address [address] [place] [address] Care Team Providers Name Role Phone Tiffany Leonard MD Primary Care Provider [phone] Encounter Details Date Type Department Care Team Description 07/05/2008 Orders Only [facility] Tiffany Leonard DIAGNOSIS NOT YET Clinic [place] Marinelli MD DEFINED (Primary Dx) [address] [address] [place] [address] [address] [place] [address] Social History Tobacco Use Types [...] Primary documented in this encounter Care Teams [employer] Relationship Specialty Start Date End Date Tiffany Leonard MD PCP - General 04/16/01 05/23/21 documented as of this encounter
--- OUTSIDE RECORDS SUMMARY | 2022-02-06 21:35 | XMS_ITS | Encounter Summary ---
:1945 Author Organization [place] Address [address] [place] [address] Care Team Providers Name Role Phone Tiffany Leonard MD Primary Care Provider [phone] Reason for Visit Reason Comments Imm/Inj pneumonia Encounter Details Date Type Department Care Team Description 12/19/2008 Allied Health/Nurse [facility] Imm/Inj (pneumonia) Visit [place] [address] [place] [address] Social History Tobacco Use Types [...] disease documented in this encounter Care Teams Sales Representative Door To Door Relationship Specialty Start Date End Date Tiffany Leonard MD PCP - General 04/16/01 05/23/21 documented as of this encounter
--- OUTSIDE RECORDS SUMMARY | 2022-02-06 21:35 | XMS_ITS | Encounter Summary ---
:1945 Author Organization [place] Address [address] [place] [address] Care Team Providers Name Role Phone Tiffany Leonard MD Primary Care Provider [phone] Encounter Details Date Type Department Care Team Description 07/21/2007 Orders Only [facility] Tiffany Leonard DIAGNOSIS NOT YET Clinic Darrian Marinelli MD DEFINED (Primary Dx) [address] [address] [place] [address] [address] [place] [address] Social History Tobacco Use Types [...] Primary documented in this encounter Care Teams Brine Supervisor Relationship Specialty Start Date End Date Tiffany Leonard MD PCP - General 04/16/01 05/23/21 documented as of this encounter
--- OUTSIDE RECORDS SUMMARY | 2022-02-06 21:35 | XMS_ITS | Encounter Summary ---
:1945 Author Organization [place] Address [address] [place] [address]. [place] [address] Care Team Providers Name Role Phone Tiffany Leonard MD Primary Care Provider [phone] Reason for Visit Reason Onset Date Comments Refill Request 06/28/2008 Encounter Details Date Type Department Care Team Description 06/28/[address] [facility] Tiffany Leonard MD Refill Request [place] [id number] [place] [address] [address] [place] [address] [address] [place] [address] [phone] Social History Tobacco Use Types Packs/Day Years [...] AM CDT Re-faxed Rx for Pravachol to [facility], they didn't receive it when faxed 05/24/08. documented in this encounter Plan of Treatment Not on filedocumented as of this encounter Visit Diagnoses Diagnosis Mixed hyperlipidemia documented in this encounter Care Teams Manager Talent Management Relationship Specialty Start Date End Date Tiffany Leonard MD PCP - General 04/16/01 05/23/21 documented as of this encounter
--- OUTSIDE RECORDS SUMMARY | 2022-02-06 21:35 | XMS_ITS | Encounter Summary ---
:1945 Author Organization [place] Address [address] [place] [address]. [place] [address] Care Team Providers Name Role Phone Tiffany Leonard MD Primary Care Provider [phone] Reason for Referral - Closed Specialty Diagnoses / Procedures Referred By Contact Refer red To Contact Diagnoses Pain [place], [place] [address] [place] [address] Referral ID Status Reason Start Date Expiration Date Visits Requ ested Visits Authorized [id number] Closed 10/13/2006 03/01/2011 1 1 Reason for Visit Reason Comments Pre-Op Exam Encounter Details Date Type Department Care Team Description 10/13/2006 Office Visit [facility] Tiffany Leonard PREOP EXA M OTHER SPECIFIED (Primary Dx); Clinic Darrian Marinelli MD EYE ANOMALY NOS; [address] [address] [address] JOINT PAIN-SHLDER; [place] PRINCESS ANNE RI OSTEOPOROSIS NOS [address] [address] [place], [place] [phone] [address] (Work) [phone] Social History Tobacco Use Types Packs/Day Years [...] Procedure: 7:30 AM Hospital/Surgical Facility: [facility] Fax number for surgical facility: [phone] Primary Physician: Dr Tiffany Leonard Type of [...] and radiation; Tamoxifen, now Arimedex; followed at [facility] ??? ASCVD [429.2] PTCA ??? OSTEOPOROSIS NOS [733.00] Fosamax Past Medical History Diagnosis Date ??? MIXED HYPERLIPIDEMIA 1988 Statin; Pravachol; Low HDL ??? PERS HX OF BREAST MALIGNANCY 1997 Mastectomy and chemotherapy; Recurrence 2001; Chemo and radiation; Tamoxifen, now Arimedex; followed at [facility] ??? ASCVD 1988 PTCA ??? OSTEOPOROSIS NOS [...] Procedure Name Priority Date/Time Associated Diagnosis [facility]me [facility] ORTHOPEDIC ASSISTANT MAINTENANCE MANAGER REFERRAL Routine 10/21/2006 Joint Pain- Shlder documented in this encounter Results CONSULT ORTHO ASSISTANT MAINTENANCE MANAGER (10/21/2006) Narrative This result has an attachment that is no t available. Tiffany Leonard MD REFERRAL documented in this encounter Visit Diagnoses Diagnosis Other specified pre-operative examinatio n - Primary Unspecified congenital anomaly of eye Pain in joint, shoulder region Osteoporosis, unspecified documented in this encounter Care Teams Receiving Manager Relationship Specialty Start Date End Date Tiffany Leonard MD PCP - General 04/16/01 05/23/21 documented as of this encounter
--- OUTSIDE RECORDS SUMMARY | 2022-02-06 21:35 | XMS_ITS | Encounter Summary ---
:1945 Author Organization [place] Address [address] [place] [address]. [place] [address] Care Team Providers Name Role Phone Tiffany Leonard MD Primary Care Provider [phone] Reason for Visit Reason Onset Date Comments Prior Authorization 01/21/2010 Prevacid Encounter Details Date Type Department Care Team Description 01/21/2010 Telephone [facility] Tiffany Leonard Prior Aut horization Clinic Tammy Marinelli MD (Prevacid) [address] [address] [address] [place] [address] [phone] Social History Tobacco Use Types Packs/Day Years [...] future reference if needed. Lissa Lara MA ORATE DRIVER documented in this encounter Plan of Treatment Not on filedocumented as of this encounter Visit Diagnoses Not on filedocumented in this encounter Care Teams Enrobing Machine Feeder Relationship Specialty Start Date End Date Tiffany Leonard MD PCP - General 04/16/01 05/23/21 documented as of this encounter
--- OUTSIDE RECORDS SUMMARY | 2022-02-06 21:35 | XMS_ITS | Encounter Summary ---
:1945 Author Organization [place] Address [address] [place] [address] Care Team Providers Name Role Phone Tiffany Leonard MD Primary Care Provider [phone] Reason for Visit Reason Comments Diabetes Education diet and meter education Encounter Details Date Type Department Care Team Description 08/08/2009 Allied Health/Nurse [facility] Education Visit Clinic [facility] (diet and meter [address] education) [address] [place] [phone] Social History Tobacco Use Types Packs/Day Years [...] to 1 hr daily 2--follow MY PLATE PLASTIC TILE LAYER and start carb counting in 3-4 days. [...] problem in portion control. lInstructed on MYPLATE PLASTIC TILE LAYER & carb counting. Patient is to eat 3 to 4 carb units per meal with 1 to 2 snacks per day of 1 to 2 carb units. Handouts--MY PLATE PLASTIC TILE LAYER, CARB COUNTING QUIDE, and 100 CALORIE SNACKS. [...] uncontrolled documented in this encounter Care Teams Quality Nurse Relationship Specialty Start Date End Date Tiffany Leonard MD PCP - General 04/16/01 05/23/21 documented as of this encounter
--- OUTSIDE RECORDS SUMMARY | 2022-02-06 21:35 | XMS_ITS | Encounter Summary ---
:1945 Author Organization [place] Address [address] [place] [address] Care Team Providers Name Role Phone Tiffany Leonard MD Primary Care Provider [phone] Reason for Visit Reason Comments Physical Mammo 07-06 and will after On cology appt in June normal Dexa 02-04-06 osteoporosis at [facility] Encounter Details Date Type Department Care Team Description 05/10/2007 Office Visit [facility] Tiffany Leonard ASCVD; Clinic Darrian Marinelli MD MIXED HYPERLIPIDEMIA; [address] [address] [address] IDIO PERIPH NEURPTHY NOS; JANIA Ponce OSTEOPOROSIS NOS; [address] [address] PERS HX OF BREAST MALIGNANCY [place], [place] [phone] [address] (Work) [phone] Social History Tobacco Use Types Packs/Day Years [...] and radiation; Tamoxifen, now Arimedex; followed at [facility] ??? ASCVD 1988 PTCA ??? OSTEOPOROSIS NOS [...] Self Exams Yes breast cancer followed by [facility] Social History Narrative ??? No narrative on [...] to date Genitourinary: Previous hysterectomy; bladder OK INSPECTOR PLATING: PRevious hysterectomy and mastectomy; Musculoskeletal: negative Neurologic: [...] breast documented in this encounter Care Teams Geodetic Engineer Relationship Specialty Start Date End Date Tiffany Leonard MD PCP - General 04/16/01 05/23/21 documented as of this encounter
--- OUTSIDE RECORDS SUMMARY | 2022-02-06 21:35 | XMS_ITS | Encounter Summary ---
:1945 Author Organization [facility] Address [address] [place] [address] Care Team Providers Name Role Phone Tiffany Leonard MD Primary Care Provider [phone] Reason for Visit Reason Comments Cough c/o cough and congestion wit h sore throat for the past 3 weeks. Elevated temp. Was sick for several weeks a nd then getting better and but now increased cough and not feeling well. Encounter Details Date Type Department Care Team Description 08/10/2007 Office Visit [facility] Tiffany Leonard Bronchiti s Acute Clinic Darrian Marinelli MD (Primary Dx) [address] [address] [place] [address] [address] [place] [address] Social History Tobacco Use Types [...] for pat 3 weeks. Was seen at [facility] for cancer follow up and a CXR [...] bronchitis documented in this encounter Care Teams Acid Bath Mixer Relationship Specialty Start Date End Date Tiffany Leonard MD PCP - General 04/16/01 05/23/21 documented as of this encounter
--- OUTSIDE RECORDS SUMMARY | 2022-02-06 21:35 | XMS_ITS | Encounter Summary ---
:1945 Author Organization [place] Address [address] [place] [address] Care Team Providers Name Role Phone Tiffany Leonard MD Primary Care Provider [phone] Reason for Visit Reason Comments Diabetes Encounter Details Date Type Department Care Team Description 08/29/2009 Office Visit [facility] Silke Muro DM w/o C omplication CLINIC D, RD Type II (Primary Dx) [facility] [address] [place], [place] [id number] Social History Tobacco Use Types Packs/Day Years [...] Primary documented in this encounter Care Teams Butcher Fish Relationship Specialty Start Date End Date Tiffany Leonard MD PCP - General 04/16/01 05/23/21 documented as of this encounter
--- OUTSIDE RECORDS SUMMARY | 2022-02-06 21:35 | XMS_ITS | Encounter Summary ---
:1945 Author Organization [facility] Address [address] [place] [address] Care Team Providers Name Role Phone Tiffany Leonard MD Primary Care Provider [phone] Reason for Visit Reason Onset Date Comments Diabetes Education 10/30/2009 Encounter Details Date Type Department Care Team Description 10/30/2009 Telephone [facility] Shauna Lopes Diabetes Education XX [place] [address] (Wo rk) Social History Tobacco [...] Lopes - 10/30/2009 4:19 PM CDT Dear Myara how are you doing since you attended [...] on filedocumented in this encounter Care Teams Superintendent Maintenance Airports Relationship Specialty Start Date End Date Tiffany Leonard MD PCP - General 04/16/01 05/23/21 documented as of this encounter
--- OUTSIDE RECORDS SUMMARY | 2022-02-06 21:35 | XMS_ITS | Encounter Summary ---
:1945 Author Organization [facility] Address [address] [place] [address] Care Team Providers Name Role Phone Fernanda Fernandez MD Primary Care Provider [phone] Reason for Visit Reason Comments Physical Mammo 07-21-07 at [facility] Colonoscopy 08-22-02 normal at [facility]. 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 Dexa: Per [facility], now on Fosamax, Mammo:2008 unilateral due to [...] and radiation; Tamoxifen, now Arimedex; followed at [facility] ??? Unspecified Cardiovascular Disease 1989 PTCA ??? [...] Self Exams Yes breast cancer followed by [facility] Social History Narrative ??? 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 PT FASTING Imm/Inj - pt would [...] Component Value Ref Test Analysis Performed At [facility] Range Method Time Signature 25 [place] Vit D2 <5 ug/L [facility] 25 [place] Vit D3 11 ug/L [facility] 25 [place] Vit D <16 30 - 75 [facility] total Season, race, dietary intake, and treatm ent affect the concentration of ug/L [place] 03-mqxrmrr-Enzqusy D. Values may decrease during ye er [...] Phon e Number [facility] [address] [place] [address] [facility] TSH W/FREE T4 REFLEX (05/24/2008 11:12 AM CDT) athologist Signature TSH 1.27 0.4 - 5.0 [facility] mU/L CLINIC LAB Specimen Anatomical Collection Method Collection Time Receive d Time (Source) Location / / Volume Laterality 05/24/2008 11:12 05/24/2008 AM CDT 11:17 AM CDT Fernanda Fernandez MD LABORATORY Performing Organization Address City/State/ZIP Code Phon e Number [facility] [address] [place] [address] [facility] HGB (05/24/2008 11:12 AM CDT) athologist Signature Hemoglobin 13.5 11.7 - 15.7 [place] g/dL CLINIC LAB Specimen Anatomical Collection Method Collection Time Receive d Time (Source) Location / / Volume Laterality 05/24/2008 11:12 05/24/2008 AM CDT 11:17 AM CDT Fernanda Fernandez MD LABORATORY Performing Organization Address City/State/ZIP Code Phon e Number [facility] [address] [place], [place] [address] [address] [facility] (ABNORMAL) A.M.A. COMPREHENSIVE MET.PANEL (05/24/2008 11:12 AM CDT) athologist Signature Sodium 142 133 - 144 [place] mmol/L [facility] Potassium 4.1 3.4 - 5.3 [place] mmol/L [facility] Chloride 102 94 - 109 [place] mmol/L [facility] Carbon Dioxide 28 20 - 32 [place] mmol/L [facility] Anion Gap 11 6 - 17 [place] mmol/L [facility] Glucose 122 (H) 60 - 99 [place] mg/dL [facility] Urea Nitrogen 13 7 - 30 [place] mg/dL [facility] Creatinine 0.59 0.52 - [place] 1.04 mg/dL [facility] Comment: New IDMS-traceable calibration beginning 07/01/07 GFR Estimate >90 >60 mL/min/1.7m2 [place] E AGAN [facility] GFR Estimate If Black >90 >60 mL/min/1.7m2 [facility] Calcium 9.1 8.5 - 10.4 mg/dL [facility] Bilirubin Total 0.3 0.2 - 1.3 mg/dL [facility] Albumin 3.8 3.3 - 4.9 g/dL [facility] Comment: Reference range changed on 11/01. Protein Total 7.0 6.8 - 8.8 g/dL [place] EA JORGE LUIS [facility] Comment: As of 07, reference range reflects plasma specimen type. Alkaline Phosphatase 82 40 - 150 U/L [facility] ALT 19 0 - 50 U/L [facility] AST 23 0 - 45 U/L [facility] CLIN IC LAB Specimen Anatomical Collection Method Collection Time Receive d Time (Source) Location / / Volume Laterality 05/24/2008 11:12 05/24/2008 AM CDT 11:17 AM CDT Fernanda Fernandez MD LABORATORY Performing Organization Address [facility]/ZIP Code Phon e Number [facility] [address] [place] [address] [phone] [facility] (ABNORMAL) A.M.A. LIPID PANEL (05/24/2008 11:12 AM CDT) athologist Signature Cholesterol 170 0 - 200 [facility] mg/dL CLINIC LAB Comment: LDL Cholesterol [...] Triglycerides 241 (H) 0 - 150 mg/dL [facility] HDL Cholesterol 27 (L) 50 - 110 mg/dL [facility] LDL Cholesterol Calculated 94 0 - 129 mg/dL [facility] Comment: LDL Cholesterol is the primary guide to therapy: LDL-cholesterol goal in high risk patients is <100 mg/dL and in very high risk patients is <70 mg/dL. VLDL-Cholesterol 48 (H) 0 - 30 mg/dL [facility] Cholesterol/HDL Ratio 6.2 (H) 0.0 - 5.0 [facility] Specimen Anatomical Collection Method Collection Time Receive d Time (Source) Location / / Volume Laterality 05/24/2008 11:12 05/24/2008 AM CDT 11:17 AM CDT Fernanda Fernandez MD LABORATORY Performing Organization Address [facility]/ZIP Code Phon e Number [facility] [address] [place] [address] [phone] [facility] documented in this encounter Visit [...] deficiency documented in this encounter Care Teams Software Security Architect Relationship Specialty Start Date End Date Fernanda Fernandez MD PCP - General 04/16/01 05/23/21 documented as of this encounter
--- OUTSIDE RECORDS SUMMARY | 2022-02-06 21:35 | XMS_ITS | Encounter Summary ---
:1945 Author Organization [facility] Address [address] [place] [address] Care Team Providers Name Role Phone Tiffany Leonard MD Primary Care Provider [phone] Reason for Visit Reason Comments Diabetes Encounter Details Date Type Department Care Team Description 08/27/2009 Office Visit [facility] Silke Muro w/o Complication Clinic [facility] [address] Type II (Primary Dx) [facility]ES [address] [place] [address] [address] [place], [place] [address] Social History Tobacco Use Types Packs/Day Years [...] Primary documented in this encounter Care Teams Weight Loss Counselor Relationship Specialty Start Date End Date Tiffany Leonard MD PCP - General 04/16/01 05/23/21 documented as of this encounter
--- OUTSIDE RECORDS SUMMARY | 2022-02-06 21:35 | XMS_ITS | Encounter Summary ---
:1945 Author Organization [place] Address [address] [place] [address]. [place] [address] Care Team Providers Name Role Phone iTffany Leonard MD Primary Care Provider [phone] Reason for Visit Reason Onset Date Comments Imm/Inj 12/18/2008 Requesting pneumovax Encounter Details Date Type Department Care Team Description 12/18/2008 Telephone [facility] Tiffany Leonard Imm/Inj ( Requesting Clinic Darrian Marinelli MD pneumovax) [address] [place] [address] [facility] [address] [place] [address] [place], [place] [phone] (Wo rk) [address] [phone] Social History Tobacco Use Types Packs/Day Years Used Date Smoking Tobacco: Former Cigarettes Quit : 05/14/1988 Alcohol Use Standard Drinks/Week Comments No 0 (1 standard drink = 0.6 oz pure alcoho l) Sex Assigned at Date Recorded Female 05/22/2021 3:03 PM CDT documented as of this encounter Miscellaneous Notes Telephone Encounter - Jayla Antoine - 01/09/2009 5:10 PM CST Pt did get pneumovax. ER WORKER Telephone Encounter - Jayla Antoine - 12/18/2008 [...] disease documented in this encounter Care Teams Regulatory Submissions Associate Relationship Specialty Start Date End Date Tiffany Leonard MD PCP - General 04/16/01 05/23/21 documented as of this encounter
--- OUTSIDE RECORDS SUMMARY | 2022-02-06 21:35 | XMS_ITS | Encounter Summary ---
:1945 Author Organization [place] Address [address] [place], [place] [address]. [place] [address] Care Team Providers Name Role Phone Tiffany Leonard MD Primary Care Provider [phone] Reason for Visit Reason Onset Date Comments Refill Request 06/11/2009 needs temp refill wh ile awaiting mail order supply Encounter Details Date Type Department Care Team Description 06/11/[address] [facility] Tiffany Leonard R efill Request (needs Clinic Tammy BARRIENTOS temp refill [place] [address] [address] [address] awaiting mail order JANIA Munoz [place] [address] supply) [address] [phone] Social History Tobacco Use Types Packs/Day Years [...] mcleod documented in this encounter Care Teams Floor Finisher Helper Relationship Specialty Start Date End Date Tiffany Leonard MD PCP - General 04/16/01 05/23/21 documented as of this encounter
--- OUTSIDE RECORDS SUMMARY | 2022-02-06 21:35 | XMS_ITS | Encounter Summary ---
:1945 Author Organization [place] Address [address] [place] [address] Care Team Providers Name Role Phone Tiffany Leonard MD Primary Care Provider [phone] Reason for Visit Reason Comments Pre Visit Planning - Done Diabetes Edema swelling in right ankle for the past month Encounter Details Date Type Department Care Team Description 12/31/[address] [facility] Tiffany Leonard Type 2 di abetes, HbA1C goal < 7% (H); Clinic Tammy Marinelli MD Hyperlipidemia LDL goal <100; [address] [address] [address] [address] Gastritis; [place], [place] Vitamin D deficiencies; [place] [address] ASCVD; [address] PERS HX OF BREAST MALIGNANCY [...] AREA ONCE DAILY BEFORE BEDTIME ??? CHOLECALCIFEROL 15316 UNIT OR CAPS 2 CAPSULE DAILY ??? MUCINEX MAXIMUM STRENGTH 1200 MG OR TB12 1 TABLET EVERY 12 HOURS NEEDED ??? ASPIRIN 81 MG OR TABS 1 TABLET DAILY ??? PREVACID 30 MG OR CPDR ONE DAILY- PAUL per Gastroenterology at [facility] Histories reviewed and updated in [facility]. Diabetes: BP 128/82 12/31/2009 To recheck [...] OF BREAST MALIGNANCY Comment: last mammo through [facility]- will request. released from [facility] Plan: continue to monitor through PCP Tiffany Leonard MD Internal Medicine electronically signed 25 minutes is spent with patient, over 50% of that time spent providing counselling, discussing and reviewing meds and potential side effects. ER SPREADER documented in this encounter Nursing Notes 12/31/2009 10:00 AM CDT >> CATINA ROBERSON Mon Dec 31, 2009 10:01 AM Patient presents with: Pre Visit Planning - Done Diabetes Edema - swelling in right ankle for the past month Pt thinks that she had her mammo in [place] in June of this year. Initial Ht [...] breast documented in this encounter Care Teams Student Services Advisor Relationship Specialty Start Date End Date Tiffany Leonard MD PCP - General 04/16/01 05/23/21 documented as of this encounter
--- OUTSIDE RECORDS SUMMARY | 2022-02-06 21:36 | XMS_ITS | Encounter Summary ---
:1945 Author Organization [place] Address [address] [place] [address] Care Team Providers Name Role Phone Tiffany Leonard MD Primary Care Provider [phone] Encounter Details Date Type Department Care Team Description 09/27/2006 Admission H&P [facility] Travis Araiza (Biotechnologist) Hospitalists MD Sarabjit [address] [facility] [address] [phone] [place] [address] (Wo rk) Social History Tobacco Use [...] MEDICAL HISTORY: 1. Coronary artery disease with [place] in 1988. 2. Mastectomy. 3. Breast cancer. 4. Neuropathy. SOCIAL HISTORY: , no tobacco, no alcohol. She is retired. FAMILY HISTORY: Mother 80 has COPD. Father 58, of [place], stroke, brother, 27, of heart disease. REVIEW [...] infarction. The patient will be admitted to [facility] and have a troponin in six hours. [...] CHRISTIAN Name: ORLIN NUNEZ MRN: [id number] Account: [id number] : 1945 Admitted: [id number] Document: [id number] cc: Tiffany Leonard MD documented in this encounter Plan of Treatment Not on filedocumented as of this encounter Visit Diagnoses Not on filedocumented in this encounter Care Teams Eating Disorder Specialist Relationship Specialty Start Date End Date Tiffany Leonard MD PCP - General 04/16/01 05/23/21 documented as of this encounter
--- OUTSIDE RECORDS SUMMARY | 2022-02-06 21:36 | XMS_ITS | Encounter Summary ---
:1945 Author Organization [facility] Address [address] [place] [address] Care Team Providers Name Role Phone Tiffany Leonard MD Primary Care Provider [phone] Encounter Details Date Type Department Care Team Description 2006 [facility] Results [facility] [address] [facility] [address] [phone] [place] [address] 01 (Wo rk) Social History Tobacco Use [...] on filedocumented in this encounter Care Teams Capacity Management Specialist Relationship Specialty Start Date End Date Tiffany Leonard MD PCP - General 04/16/01 05/23/21 documented as of this encounter
--- OUTSIDE RECORDS SUMMARY | 2022-02-06 21:36 | XMS_ITS | Encounter Summary ---
:1945 Author Organization [place] Address [address] [place] [address] Care Team Providers Name Role Phone Tiffany Leonard MD Primary Care Provider [phone] Reason for Visit Reason Comments Cough has had a cough for the past 5 weeks but feels it is improving some. Establish Care Dr. Garcia in [place] and [place]. Encounter Details Date Type Department Care Team Description 11/13/2005 Office Visit [facility] Tiffany Leonard COUGH; Clinic Darrian Marinelli MD MIXED HYPERLIPIDEMIA; [address] [address] [facility]VD[facility]; [address] [address] PERS HX OF BREAST MALIGNANCY [place], [place] [phone] [address] (Work) [phone] Social History Tobacco Use Types Packs/Day Years [...] 60 year old female who presents to [facility] care. She is in need of cholesterol follow up and has concerns about voice, cough and thyroid. Past Medical History Diagnosis Date ??? MIXED HYPERLIPIDEMIA Statin; Pravachol; Low HDL ??? PERS HX OF BREAST MALIGNANCY 1997 Mastectomy and chemotherapy; Recurrence 2001; Chemo and radiation; Tamoxifen, now Arimedex; followed at [facility] ??? ASCVD 1988 PTCA ??? 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 [address] [place] [address] [facility] documented in this encounter Visit Diagnoses Diagnosis Cough Mixed hyperlipidemia Unspecified cardiovascular disease Osteoporosis, unspecified Personal history of malignant neoplasm o f breast documented in this encounter Care Teams Light Bulb Tester Relationship Specialty Start Date End Date Tiffany Leonard MD PCP - General 04/16/01 05/23/21 documented as of this encounter
--- OUTSIDE RECORDS SUMMARY | 2022-02-06 21:36 | XMS_ITS | Encounter Summary ---
:1945 Author Organization [place] Address [address] [place] [address] Care Team Providers Name Role Phone Tiffany Leonard MD Primary Care Provider [phone] Encounter Details Date Type Department Care [...] as of this encounter Progress Notes Interface, Clinical Dermatologist - 05/20/2010 12:11 PM CDT General Information General Information - <R> How to be addressed Myara - <R> Quilt Sewer Needed No Patient Contact Information - <R> box person to Reinaldo Quinn- notify: - Contact Location: Home Local - <R> Phone 1: [phone] home - Cell cell - box person #2: Carmita Velásquez (dtg) - Contact Location: [facility] - Phone 1: [phone] Home Advance Directive [facility] Directive [...] - Cardiac Conditions/Symptoms Hypertension; Myocardial infarction; 1988 VT with sten x1 - Usual Blood Pressure [...] Does not wish to have anyone contacted care/clergy/compensation advisor notified? Mutuality/Individual Preferences Mutuality/Preferences - <R> [...] on filedocumented in this encounter Care Teams Retouching Operator Relationship Specialty Start Date End Date Tiffany Leonard MD PCP - General 04/16/01 05/23/21 documented as of this encounter
--- OUTSIDE RECORDS SUMMARY | 2022-02-06 21:36 | XMS_ITS | Encounter Summary ---
:1945 Author Organization [facility] Address [address] [place] [address]. [place] [address] Care Team Providers Name Role Phone Tiffany Leonard MD Primary Care Provider [phone] Reason for Referral - Closed Specialty Diagnoses / Procedures Referred By Contact Refer red To Contact Diagnoses Unspecified [place] [address] [place] [address] Referral ID Status Reason Start Date Expiration Date Visits Requ ested Visits Authorized [id number] Closed 07/29/2006 03/01/2011 1 1 Reason for Visit Reason Comments Eye Problem c/o swelling in her eye lids and more so on the right side. Is now affecting her vision. In the evening is worse and difficulty seeing. 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
--- OUTSIDE RECORDS SUMMARY | 2022-02-06 21:36 | XMS_ITS | Encounter Summary ---
:1945 Author Organization [place] Address [address] [place] [address] Care Team Providers Name Role Phone Tiffany Leonard MD Primary Care Provider [phone] Reason for Referral Specialty Diagnoses / Procedures Referred By Contact [place]er [place] [address] [place] [address] Referral ID Status Reason Start Date Expiration Date Visits Requ ested Visits Authorized RAL HISTORY COLLECTIONS CURATOR Encounter Details Date Type Department Care Team Description 08/27/2004 Orders Only [facility] Tiffany Leonard DIAGNOSIS NOT YET Clinic Dar[place] Marinelli MD DEFINED (Primary Dx) [address] [address] [place] [address] [address] [place] [address] Social History Tobacco Use Types Packs/Day [...] Primary documented in this encounter Care Teams Prosthetic Aides Teacher Relationship Specialty Start Date End Date Tiffany Leonard MD PCP - General 04/16/01 05/23/21 documented as of this encounter
--- OUTSIDE RECORDS SUMMARY | 2022-02-06 21:36 | XMS_ITS | Encounter Summary ---
:1945 Author Organization [place] Address [address] [place] [address] Care Team Providers Name Role Phone Tiffany Leonard MD Primary Care Provider [phone] Encounter Details Date Type Department Care Team Description 08/27/2004 Abstract [facility] Nadiya Johnson LABS FROM [facility] [address] [place] [address] Social History Tobacco Use [...] . documented in this encounter Results GLUCOSE [37754.005] (09/26/2004) athologist Signature Glucose 109@ mg/dL [facility] Nadiya Grob LABORATORY Performing Organization Address City/State/ZIP Code Phon e Number [facility] TRIGLYCERIDES [85264.000] (08/27/2004) P athologist Signature Triglycerides 260@ mg/dL [facility] LABORATORY Performing Organization Address City/State/ZIP Code Phon e Number [facility] HDL CHOLESTEROL [98234.000] (08/27/2004) athologist Signature HDL Cholesterol 37@ mg/dL [facility] Nadiya Alex LABORATORY Performing Organization Address [facility] Phon e Number [facility] LDL-CHOLESTEROL [77189.001] (08/27/2004) P athologist Signature LDL Cholesterol 101@ mg/dL [facility] Calculated Nadiya Alex LABORATORY Performing Organization Address [facility] Phon e Number [facility] CHOLESTEROL [30127.000] (08/27/2004) P athologist Signature Cholesterol 190@ 115 - 199 [facility] mg/dL Nadiya Alex LABORATORY Performing Organization Address [facility] Phon e Number [facility] AST [91753.000] (08/27/2004) P athologist Signature AST 20@ U/L [facility] Nadiya Alex LABORATORY Performing Organization Address [facility] Phon e Number [facility] CREATININE [30434.000] (08/27/2004) P athologist Signature Creatinine 0.8@ mg/dL [facility] Nadiya Alex LABORATORY Performing Organization Address [facility] Phon e Number [facility] POTASSIUM [40456.001] (08/27/2004) P athologist Signature Potassium 4.2@ mmol/L [facility] Nadiya Alex LABORATORY Performing Organization Address [facility] Phon e Number [facility] CREATININE [71032.000] (08/25/2003) P athologist Signature Creatinine 0.8@ mg/dL [facility] Nadiya Alex LABORATORY Performing Organization Address City/[facility]/ZIP Code Phon e Number [facility] GLUCOSE [16931.005] (08/25/2003) P athologist Signature Glucose 97@ mg/dL [facility] Nadiya Alex LABORATORY Performing Organization Address [facility]/ZIP [facility] Phon e Number [facility] POTASSIUM [72172.001] (08/25/2003) P athologist Signature Potassium 3.9@ mmol/L [facility] Nadiya Alex LABORATORY Performing Organization Address [facility]/ZIP Code Phon e Number [facility] AST [58301.000] (08/25/2003) P athologist Signature AST 19@ U/L [facility] Nadiya Alex LABORATORY Performing Organization Address [facility] Code Phon e Number [facility] CHOLESTEROL [90218.000] (08/23/2002) P athologist Signature Cholesterol 186@ 115 - 199 [facility] mg/dL Nadiya Alex LABORATORY Performing Organization Address [facility]/ZIP Code Phon e Number [facility] LDL-CHOLESTEROL [02481.001] (08/23/2002) P athologist Signature LDL Cholesterol 110@ mg/dL [facility] Calculated Nadiya Alex LABORATORY Performing Organization Address [facility] Phon e Number [facility] TRIGLYCERIDES [72073.000] (08/23/2002) P athologist Signature Triglycerides 212@ mg/dL [facility] Nadiya Alex LABORATORY Performing Organization Address [facility] Phon e Number [facility] CREATININE [01386.000] (08/23/2002) P athologist Signature Creatinine 0.9@ mg/dL [facility] Nadiya Alex LABORATORY Performing Organization Address [facility] Code Phon e Number [facility] AST [72154.000] (08/23/2002) P athologist Signature AST 20@ U/L [facility] Nadiya Alex LABORATORY Performing Organization Address City/[facility]/ZIP Code Phon e Number [facility] POTASSIUM [57225.001] (08/23/2002) P athologist Signature Potassium 4.0@ mmol/L [facility] Nadiya Alex LABORATORY Performing Organization Address [facility]/ZIP Code Phon e Number [facility] CREATININE [30755.000] (08/12/2002) P athologist Signature Creatinine 0.8@ mg/dL [facility] Nadiya Alex LABORATORY Performing Organization Address City/State/ZIP Code Phon e Number [facility] GLUCOSE [66854.005] (08/12/2002) P athologist Signature Glucose 107@ mg/dL [facility] Nadiya Alex LABORATORY Performing Organization Address City/State/ZIP Code Phon e Number [facility] POTASSIUM [65465.001] (08/12/2002) P athologist Signature Potassium 4.4@ mmol/L [facility] Nadiya Alex LABORATORY Performing Organization Address City/State/ZIP Code Phon e Number [facility] documented in this encounter Visit Diagnoses Diagnosis DIAGNOSIS NOT YET DEFINED - Primary documented in this encounter Care Teams Rehabilitation Medicine Physician Relationship Specialty Start Date End Date Tiffany Leonard MD PCP - General 04/16/01 05/23/21 documented as of this encounter
--- OUTSIDE RECORDS SUMMARY | 2022-02-06 21:36 | XMS_ITS | Encounter Summary ---
:1945 Author Organization [place] Address [address] [place] [address] Care Team Providers Name Role Phone Tiffany Leonard MD Primary Care Provider [phone] Encounter Details Date Type Department Care Team Description 02/04/2006 Orders Only [facility] Tiffany Leonard DIAGNOSIS NOT YET Clinic Darrian Marinelli MD DEFINED (Primary Dx) [address] [address] [place] [address] [address] [place] [address] Social History Tobacco Use Types [...] Primary documented in this encounter Care Teams Song Lyricist Relationship Specialty Start Date End Date Tiffany Leonard MD PCP - General 04/16/01 05/23/21 documented as of this encounter
--- OUTSIDE RECORDS SUMMARY | 2022-02-06 21:36 | XMS_ITS | Encounter Summary ---
:1945 Author Organization [facility] Address [address] [place] [address] Care Team Providers Name Role Phone Tiffany Leonard MD Primary Care Provider [phone] Encounter Details Date Type Department Care Team Description 2006 Historic Results [facility] Heart Unknown, [facility] [address] [place] [address] Social History Tobacco Use Types [...] on filedocumented in this encounter Care Teams Arbitrator Relationship Specialty Start Date End Date Tiffany Leonard MD PCP - General 04/16/01 05/23/21 documented as of this encounter
--- OUTSIDE RECORDS SUMMARY | 2022-02-06 21:36 | XMS_ITS | Encounter Summary ---
:1945 Author Organization [place] Address [address] [place] [address] Care Team Providers Name Role Phone Tiffany Leonard MD Primary Care Provider [phone] Encounter Details Date Type Department Care Team Description 08/22/[address] [facility] Tiffany Leonard DIAGNOSIS NOT YET Clinic Darrian Marinelli MD DEFINED (Primary Dx) [address] [address] [place] [address] [address] [place] [address] Social History Tobacco Use Types [...] Primary documented in this encounter Care Teams Primer Boxer Relationship Specialty Start Date End Date Tiffany Leonard MD PCP - General 04/16/01 05/23/21 documented as of this encounter
--- OUTSIDE RECORDS SUMMARY | 2022-02-06 21:36 | XMS_ITS | Encounter Summary ---
:1945 Author Organization [facility] Address [address] [place] [address]. [place] [address] Care Team Providers Name Role Phone Tiffany Leonard MD Primary Care Provider [phone] Reason for Visit Reason Onset Date Comments Refill Request 05/04/2006 Encounter Details Date Type Department Care Team Description 05/04/2006 Refill [facility] Tiffany Leonard MD Refill Request [place] [id number] [place] [address] [address] [place] [address] [address] [place] [address] [phone] Social History Tobacco Use Types Packs/Day Years Used Date Smoking Tobacco: Former Cigarettes Quit : 05/14/1988 Alcohol Use Standard Drinks/Week Comments No 0 (1 standard drink = 0.6 oz pure alcoho l) Sex Assigned at Date Recorded Female 05/22/2021 3:03 PM CDT documented as of this encounter Miscellaneous Notes Telephone Encounter - Sivan Wilcox - 05/04/2006 1:11 PM CST Rx called in. OMER SUPPORT ASSOCIATE Telephone Encounter - Percy Radha - 05/04/2006 12:51 PM CST These can be called in by a nurse to that line and left on voice mail. They need the patients benefits number and Dr. Leonard's KAYLYNN number. Please call them in. OMER SUPPORT ASSOCIATE Telephone Encounter - Agnes Steiner - 05/04/2006 [...] line. She is nearly out of meds. OMER SUPPORT ASSOCIATE documented in this encounter Plan of Treatment Not on filedocumented as of this encounter Visit Diagnoses Not on filedocumented in this encounter Care Teams Aviation Consultant Relationship Specialty Start Date End Date Tiffany Leonard MD PCP - General 04/16/01 05/23/21 documented as of this encounter
--- OUTSIDE RECORDS SUMMARY | 2022-02-06 21:36 | XMS_ITS | Encounter Summary ---
:1945 Author Organization [facility] Address [address] [place] [address] Care Team Providers Name Role Phone Tiffany Leonard MD Primary Care Provider [phone] Encounter Details Date Type Department Care Team Description 07/08/2006 Abstract [facility] Preethi Pagan [facility] LAB[facility] [address] [place] [address] Social History Tobacco Use [...] . documented in this encounter Results TSH [19171.001] (07/08/2006) P athologist Signature TSH 2.4@ mcU/mL [facility] Preethithao Pagan LABORATORY Performing Organization Address [facility] Phon e Number [facility] TRIGLYCERIDES [23847.000] (07/08/2006) P athologist Signature Triglycerides 213@ mg/dL [facility] Preethi Latasha LABORATORY Performing Organization Address [facility] Phon e Number [facility] HDL CHOLESTEROL [77098.000] (07/08/2006) P athologist Signature HDL Cholesterol 30@ mg/dL [facility] Preethithao Pagan LABORATORY Performing Organization Address [facility] Phon e Number [facility] LDL-CHOLESTEROL [16451.001] (07/08/2006) P athologist Signature LDL Cholesterol 89@ mg/dL [facility] Calculated Preethithao Pagan LABORATORY Performing Organization Address [facility] Phon e Number [facility] CHOLESTEROL [10640.000] (07/08/2006) P athologist Signature Cholesterol 162@ 115 - 199 [facility] mg/dL Preethithao Pagan LABORATORY Performing Organization Address [facility] Phon e Number [facility] CREATININE [82051.000] (07/08/2006) P athologist Signature Creatinine 0.7@ mg/dL [facility] [employer] LABORATORY Performing Organization Address [facility] Phon e Number [facility] AST [23640.000] (07/08/2006) P athologist Signature AST 21@ U/L [facility] [employer] LABORATORY Performing Organization Address [facility] Phon e Number [facility] POTASSIUM [62175.001] (07/08/2006) P athologist Signature Potassium 4.5@ mmol/L [facility] Preethi Pagan LABORATORY Performing Organization Address City/State/ZIP Code Phon e Number [facility] documented in this encounter Visit Diagnoses Diagnosis DIAGNOSIS NOT YET DEFINED - Primary documented in this encounter Care Teams Call Worker Relationship Specialty Start Date End Date Tiffany Leonard MD PCP - General 04/16/01 05/23/21 documented as of this encounter
--- OUTSIDE RECORDS SUMMARY | 2022-02-06 21:36 | XMS_ITS | Encounter Summary ---
:1945 Author Organization [facility] Address [address] [place] [address] Care Team Providers Name Role Phone Tiffany Leonard MD Primary Care Provider [phone] Encounter Details Date Type Department Care Team Description 06/21/2003 Admission H&P Mj Hamlin MD (Bench Examiner) [place] [address] Social History Tobacco Use Types Packs/Day Years [...] [id number] E VIOLET HAMLIN MD MT: Document: [id number] [place], [place] Name: [facility] HISTORY AND PHYSCIAL Page 2 of 2 LCN: RASHAWN DSC: [place], [place] Name: MR#: : Admit Date: [facility]LRIN N[facility]Z [id number] 1945 06/21/2003 Doctor: Mj HAMLIN MD HISTORY AND PHYSICAL Page 1 of 2 documented in this encounter Plan of Treatment Not on filedocumented as of this encounter Visit Diagnoses Not on filedocumented in this encounter Care Teams Operating System Designer Relationship Specialty Start Date End Date Tiffany Leonard MD PCP - General 04/16/01 05/23/21 documented as of this encounter
--- OUTSIDE RECORDS SUMMARY | 2022-02-06 21:36 | XMS_ITS | Encounter Summary ---
:1945 Author Organization [facility] Address [address] [place] [address]. [place] [address] Care Team Providers Name Role Phone Tiffany Leonard MD Primary Care Provider [phone] Reason for Visit Reason Onset Date Comments Medication Request 01/09/2006 neurontin Encounter Details Date Type Department Care Team Description 01/09/2006 Telephone [facility] Tiffany Leonard Medicatio n Request Clinic [place]rian Marinelli MD (neurontin) [address] [address] [facility] [address] [place] [address] [place], [place] [phone] (Wo rk) [address] [phone] Social History Tobacco Use Types Packs/Day Years [...] PM CST Discussed at appt. Rx Faxed [facility] RN Telephone Encounter - Johanna White - 01/09/2006 4:57 PM CST Pt calling; states she discussed possible rx for Neurontin for pain in feet. Declined rx at [facility], but would now like to try this, if possible. Please advise, thanks. 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
--- OUTSIDE RECORDS SUMMARY | 2022-02-06 21:36 | XMS_ITS | Encounter Summary ---
:1945 Author Organization [place] Address [address] [place] [address]. [place] [address] Care Team Providers Name Role Phone Tiffany Leonard MD Primary Care Provider [phone] Encounter Details Date Type Department Care Team Description 06/21/2003 Operative Report Misael Horton MD (Inventory Control Assistant) [facility] [id number] [place] [address] (Wo rk) Social History Tobacco Use Types [...] complications. [id number] MISAEL HORTON MD MT: Document: [id number] [place], [place] Name: ORLIN NUNEZ NATIVIDADN: SDS DSC: 06/21/2003 [place], [place] Name: MR#: : Procedure Date: ORLIN NUNEZ [id number] 1945 06/21/2003 Doctor: MISAEL HORTON MD OPERATIVE REPORT Page 1 of 2 documented in this encounter Plan of Treatment Not on filedocumented as of this encounter Visit Diagnoses Not on filedocumented in this encounter Care Teams Clean Up Person Relationship Specialty Start Date End Date Tiffany Leonard MD PCP - General 04/16/01 05/23/21 documented as of this encounter
--- OUTSIDE RECORDS SUMMARY | 2022-02-06 21:36 | XMS_ITS | Encounter Summary ---
:1945 Author Organization [place] Address [address] [place] [address] Care Team Providers Name Role Phone Tiffany Leonard MD Primary Care Provider [phone] Encounter Details Date Type Department Care Team Description 09/27/2006 Historic Results [place] [facility] MD Sarabjit [address] [facility] [address] [phone] [place] [phone] (Wo rk) Social History Tobacco Use [...] LAB - BLOOD ORDERABLES Performing Organization Address City/[facility] Code Phon e Number MISYS Troponin I (09/27/2006 12:20 PM CDT) P athologist Signature Troponin I <0.04 0.00 - 0.40 MISYS ug/L Specimen Anatomical Collection Method Collection Time Receive d Time (Source) Location / / Volume Laterality 09/27/2006 12:20 09/27/2006 PM CDT 12:25 PM CDT Travis Araiza MD LAB - BLOOD ORDERABLES Performing Organization Address [facility] Code Phon e Number MISYS Troponin I (09/27/2006 6:25 AM CDT) P athologist Signature Troponin I <0.04 0.00 - 0.40 MISYS ug/L Specimen Anatomical Collection Method Collection Time Receive d Time (Source) Location / / Volume Laterality 09/27/2006 6:25 AM 7 6:33 CDT AM CDT Preethi [place] MD LAB - BLOOD ORDERABLES Performing Organization Address [facility] Phon e Number MISYS Myoglobin (09/27/2006 6:25 AM CDT) P athologist Signature Myoglobin 27 <120 ug/L MISYS Specimen Anatomical Collection Method Collection Time Receive d Time (Source) Location / / Volume Laterality 09/27/2006 6:25 AM 7 6:33 CDT AM CDT Preethi [place] MD LAB - BLOOD ORDERABLES Performing Organization Address [facility] Phon e Number MISYS Hemogram and [...] LAB - BLOOD ORDERABLES Performing Organization Address [facility] Phon e Number MISYS (ABNORMAL) Basic [...] LAB - BLOOD ORDERABLES Performing Organization Address [facility] Phon e Number MISYS Hepatic panel [...] LAB - BLOOD ORDERABLES Performing Organization Address [facility] Phon e Number MISYS Lipase (09/27/2006 6:25 AM CDT) athologist Signature Lipase 164 20 - 250 U/L MISYS Specimen Anatomical Collection Method Collection Time Receive d Time (Source) Location / / Volume Laterality 09/27/2006 6:25 AM 7 7:04 CDT AM CDT Preethi [place] MD LAB - BLOOD ORDERABLES Performing Organization Address City/[facility] Phon e Number MISYS documented in this encounter Visit Diagnoses Not on filedocumented in this encounter Care Teams Assistant Production Manager Relationship Specialty Start Date End Date Tiffany Leonard MD PCP - General 04/16/01 05/23/21 documented as of this encounter
--- OUTSIDE RECORDS SUMMARY | 2022-02-06 21:36 | XMS_ITS | Encounter Summary ---
:1945 Author Organization [place] Address [address] [place] [address] Care Team Providers Name Role Phone Tiffany Leonard MD Primary Care Provider [phone] Encounter Details Date Type Department Care Team Description 09/27/2006 Emergency room Shaan Farga MD EMERGENCY PHYSIC [place] [place] [address] [place], [place] [address] (Wo rk) Social History [...] chest tightness is somewhat similar to her [place] in 1988. She does note over the last few weeks, having increasing episodes of chest tightness such as this often comes during the night. It sometimes comes during the day and not necessarily associated with activity. She has had some stress test since her [place] in 1988 that have been normal but [...] placed on 2 liters O2 nasal cannula, cardiac technologist. Blood was drawn and sent to lab. [...] and he will discuss that with the jig and fixture builder and after he sees the patientwill make a decision. PLAN: [place] [facility] [place] Ara[place]. IMPRESSION: 1. Chest pain, rule out acute coronary syndrome. 2. Unstable angina. Electronically signed on 10/05/2006 08:37 by SHAAN FRAGA MD MT: ms Name: ORLIN NUNEZ Account: [id number] : 1945 Visit Date: 09/27/2006 Document: [id number] cc: Tiffany Leonard MD documented in this encounter Plan of Treatment Not on filedocumented as of this encounter Visit Diagnoses Not on filedocumented in this encounter Care Teams Cable Lacer Relationship Specialty Start Date End Date Tiffany Leonard MD PCP - General 04/16/01 05/23/21 documented as of this encounter
--- OUTSIDE RECORDS SUMMARY | 2022-02-06 21:36 | XMS_ITS | Encounter Summary ---
:1945 Author Organization [place] Address [address] [place] [address] Care Team Providers Name Role Phone Tiffany Leonard MD Primary Care Provider [phone] Encounter Details Date Type Department Care Team Description 09/27/2006 Historic Results INTERFACED REPORT Myrtle [place] MD EMERGENCY PHYSIC [facility] [address] [place], [place] [address] (Wo rk) Social History [...] RESULTS Atrial Rate 61 BPM RADIOLOGY RESULTS [place] Interval 164 ms RADIOLOGY RESULTS QRS Duration 80 ms RADIOLOGY RESULTS QT 412 ms RADIOLOGY RESULTS QTc 414 ms RADIOLOGY RESULTS P Margie 48 degrees RADIOLOGY RESULTS R AXIS 4 degrees RADIOLOGY RESULTS T Margie 72 degrees RADIOLOGY RESULTS Interpretation Sinus rhythm [...] on filedocumented in this encounter Care Teams Mortgage Or Loan Underwriter Relationship Specialty Start Date End Date Tiffany Leonard MD PCP - General 04/16/01 documented as of this encounter
--- OUTSIDE RECORDS SUMMARY | 2022-02-06 21:36 | XMS_ITS | Encounter Summary ---
:1945 Author Organization [place] Address [address] [place] [address] Care Team Providers Name Role Phone Tiffany Leonard MD Primary Care Provider [phone] Encounter Details Date Type Department Care Team Description 09/27/2006 Results Only [facility] Preethi [place], [facility] Results [facility] PHYS[facility] [address] [place], [place] [address] (Wo rk) Social History [...] Procedure Name Priority Date/Time Associated Diagnosis Comme [facility] CHEST ONE VIEW Routine 09/27/2006 6:40 [...] filedocumented in this encounter Care Teams Assistant Baseball Coach Relationship Specialty Start Date End Date Tiffany Leonard MD PCP - General 04/16/01 05/23/21 documented as of this encounter
--- OUTSIDE RECORDS SUMMARY | 2022-02-06 21:36 | XMS_ITS | Encounter Summary ---
:1945 Author Organization [place] Address [address] [place] [address] Care Team Providers Name Role Phone Tiffany Leonard MD Primary Care Provider [phone] Reason for Referral Specialty Diagnoses / Procedures Referred By Contact [place] [address] [place] [address] Referral ID Status Reason Start Date Expiration Date Visits Requ ested Visits Authorized RATOR HAND Encounter Details Date Type Department Care Team Description 02/12/2006 Orders Only [facility] Tiffany Leonard DIAGNOSIS NOT YET Clinic [place] Marinelli MD DEFINED (Primary Dx) [address] [address] [place] [address] [address] [place] [address] Social History [...] Primary documented in this encounter Care Teams Brothel Keeper Relationship Specialty Start Date End Date Tiffany Leonard MD PCP - General 04/16/01 05/23/21 documented as of this encounter
--- OUTSIDE RECORDS SUMMARY | 2022-02-06 21:36 | XMS_ITS | Encounter Summary ---
:1945 Author Organization [place] Address [address] [place] [address] Care Team Providers Name Role Phone Tiffany Leonard MD Primary Care Provider [phone] Encounter Details Date Type Department Care Team Description 2006 Results Only [facility] Results [facility] [address] [place], [place] [address] (Wo rk) Social History [...] STRESS TST,TRACING ONLY (2006 11:44 AM CDT) [facility] Method Time Signature IMAGECAST RADIOLOGY RESULT [...] on filedocumented in this encounter Care Teams Mountain Services Manager Relationship Specialty Start Date End Date Tiffany Leonard MD PCP - General 04/16/01 documented as of this encounter
--- OUTSIDE RECORDS SUMMARY | 2022-02-06 21:36 | XMS_ITS | Encounter Summary ---
:1945 Author Organization [place] Address [address] [place] [address] Care Team Providers Name Role Phone Fernanda Fernandez MD Primary Care Provider [phone] Reason for Visit Reason Comments Physical PT FASTING Mammo followed [facility] oncology. Encounter Details Date Type Department Care Team Description 04/15/2006 Office Visit [facility] Fernanda Fernandez ROUTINE M EDICAL EXAM (Primary Dx); Clinic [place] Marinelli MD IDIO PERIPH NEURPTHY NOS; [address] [address] CIMARRON A VE MIXED HYPERLIPIDEMIA; [place] [address] [address] [place] [address] Social History Tobacco Use Types [...] Comments Blood Pressure 124/68 04/15/2006 10:45 AM JORDAN WORKER Pulse 76 04/15/2006 10:45 AM JORDAN WORKER Temperature - - Respiratory Rate 18 04/15/2006 10:45 AM JORDAN WORKER Oxygen Saturation - - Inhaled Oxygen Concentration - - Weight 83.9 kg (185 lb) 04/15/2006 10:45 AM JORDAN WORKER Height 165.7 cm (5' 5.25) 04/15/2006 10:45 AM JORDAN WORKER Body Mass Index 30.55 04/15/2006 10:45 AM JORDAN WORKER documented in this encounter Progress Notes Fernanda Fernandez - 04/15/2006 12:33 PM JORDAN WORKER Addended by: FERNANDA FERNANDEZ on: 04/15/2006 12:33:48 PM Modules accepted: Orders AN WORKER Shante Osorio - 04/15/2006 11:48 AM JORDAN WORKER Addended by: SHANTE OSORIO on: 04/15/2006 11:48:50 AM Modules accepted: Orders, Medications AN WORKER Malu Monson - 04/15/2006 11:43 AM JORDAN WORKER Addended by: MALU MONSON on: 04/15/2006 11:43:30 AM Modules accepted: Orders AN WORKER Fernanda Fernandez - 04/15/2006 11:14 AM CST Chief Complaint: physical History of Present Illness: Mayra Quinn is a 60 year old female who presents for physical exam. No LMP date recorded. Reason: Hysterectomy., Dexa: 2006- Osteoporosis; on Fosamax, Mammo: [facility], colon screenin per pt. There is no family hx of Breast or Colon Cancer. Tetanus: 2006 Also here to follow up on Cholesterol, HTN and heart disease. Past Medical History Diagnosis Date ??? MIXED HYPERLIPIDEMIA Statin; Pravachol; Low HDL ??? PERS HX OF BREAST MALIGNANCY 1998 Mastectomy and chemotherapy; Recurrence 2001; Chemo and radiation; Tamoxifen, now Arimedex; followed at [facility] ??? ASCVD 1989 PTCA ??? OSTEOPOROSIS NOS [...] with Dr. Isidra sheppard most recently at [facility].; cough- heartburn related; now on PPI. 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 AN WORKER documented in this encounter Nursing Notes 04/15/2006 [...] Mixed Hyperlipidemi a Results for this AM JORDAN WORKER procedure are i n the results section. HCL UA MICRO IF Routine 04/15/2006 11:38 Routine Medical Exam Results for this POSITIVE AM JORDAN WORKER Mixed Hyperlipidemia procedu re are in the results section. HCL ALBUMIN URINE Routine 04/15/2006 11:38 Mixed Hyperlipidemi a Results for this (INC CREAT) AM JORDAN WORKER procedure are i n the results section. CL AFF MICRO Routine 04/15/2006 11:38 Results for this EXAM-URINE AM JORDAN WORKER procedure are i n the results section. HCL HEMOGLOBIN NONLAB Routine 04/15/2006 11:33 Routine Medical Exam Results for this AM JORDAN WORKER procedure are i n the results section. HCL COMPREHENSIVE Routine 04/15/2006 11:33 Routine Medic al Exam Results for this METABOLIC PANEL AM JORDAN WORKER Mixed Hyperlipid emia procedure are in Ascvd the results section. HCL TSH W/FREE T4 Routine 04/15/2006 11:33 Routine Medic al Exam Results for this REFLEX AM JORDAN WORKER Mixed Hyperlipidemia procedu re are in the results section. CL AFF A.M.A. LIPID Routine 04/15/2006 11:33 Routine Med ical Exam Results for this PANEL AM JORDAN WORKER Mixed Hyperlipidemia procedu re are in the results section. documented in this encounter Results (ABNORMAL) MICRO EXAM-URINE (04/15/2006 11:38 AM JORDAN WORKER) athologist Signature WBC Urine O - 2 0 - 2 /HPF [facility] RBC Urine O - 2 0 - 2 /HPF [facility] Squamous EPI Few FEW /LPF [facility] Bacteria Urine Few (A) NEG /HPF [facility] Specimen Anatomical Collection Method Collection Time Receive d Time (Source) Location / / Volume Laterality 04/15/2006 11:38 04/15/2006 AM JORDAN WORKER 11:43 AM JORDAN WORKER Fernanda Fernandez MD LABORATORY Performing Organization Address City/State/ZIP Code Phon e Number [facility] [address] [place], [place] [address] [address] [facility] CREATININE, URINE (04/15/2006 11:38 AM JORDAN WORKER) athologist Signature Creatinine 118 mg/dL [facility] Urine [place] [facility] Specimen Anatomical Collection Method Collection Time Receive d Time (Source) Location / / Volume Laterality 04/15/2006 11:38 04/15/2006 AM JORDAN WORKER 11:43 AM JORDAN WORKER Fernanda Fernandez MD LABORATORY Performing Organization Address City/State/ZIP Code Phon e Number [address] LABS (ABNORMAL) MICROALBUMIN (INC URINE CREAT) (04/15/2006 11:38 AM JORDAN WORKER) [facility] gist Method Time Signature Albumin Urine 50 mg/L [facility] mg/L [facility]S Albumin Urine 42.63 (H) 0 - 20 [facility] mg/g Cr mg/g Cr [facility] LABS Specimen Anatomical Collection Method Collection Time Receive d Time (Source) Location / / Volume Laterality 04/15/2006 11:38 04/15/2006 AM JORDAN WORKER 11:43 AM JORDAN WORKER Fernanda Fernandez MD LABORATORY Performing Organization Address City/State/ZIP Code Phon e Number [address] LABS (ABNORMAL) UA MICRO IF POSITIVE (04/15/2006 11:38 AM JORDAN WORKER) Patholo gist Method Time Signature Color Urine Yellow [facility] Appearance Urine Clear [facility] Glucose Urine Negative NEG mg/dL [facility] Bilirubin Urine Negative NEG [facility] Ketones Urine Negative NEG mg/dL [facility] Specific [place] 1.020 1.003 - [place] Urine 1.035 [facility] Blood Urine Trace (A) NEG [facility] pH Urine 7.5 (H) 5.0 - 7.0 [place] pH [facility] Protein Albumin Trace (A) NEG mg/dL [place] Urine [facility] Urobilinogen 0.2 0.2 - 1.0 [place] Urine EU/dL [facility] Nitrite Urine Negative NEG [facility] Leukocyte Trace (A) NEG [place] Esterase Urine [facility] Source [facility] LAB Specimen Anatomical Collection Method Collection Time Receive d Time (Source) Location / / Volume Laterality 04/15/2006 11:38 04/15/2006 AM JORDAN WORKER 11:43 AM JORDAN WORKER Fernanda Fernandez MD LABORATORY Performing Organization Address City/State/ZIP Code Phon e Number [facility] [address] [place], [place] [address] [address] [facility] TSH W/FREE T4 REFLEX (04/15/2006 11:33 AM JORDAN WORKER) P athologist Signature TSH 1.27 0.4 - 5.0 [place] [facility] m[facility]L [facility] Specimen Anatomical Collection Method Collection Time Receive d Time (Source) Location / / Volume Laterality 04/15/2006 11:33 04/15/2006 AM JORDAN WORKER 11:38 AM JORDAN WORKER Fernanda Fernandez MD LABORATORY Performing Organization Address City/State/ZIP Code Phon e Number [facility] [address] [place] [address] [facility] HGB (04/15/2006 11:33 AM JORDAN WORKER) P athologist Signature Hemoglobin 14.4 11.7 - 15.7 [facility] g/dL [facility] Specimen Anatomical Collection Method Collection Time Receive d Time (Source) Location / / Volume Laterality 04/15/2006 11:33 04/15/2006 AM JORDAN WORKER 11:38 AM JORDAN WORKER Fernanda Fernandez MD LABORATORY Performing Organization Address City/State/ZIP Code Phon e Number [facility] [address] [place], [place] [address] [address] [facility] A.M.A. COMPREHENSIVE MET.PANEL (04/15/2006 11:33 AM JORDAN WORKER) athologist Signature Sodium 141 133 - 144 [place] [facility] mmol/L [facility] Potassium 4.1 3.4 - 5.3 [place] [facility] mmol/L [facility] Chloride 102 94 - 109 [place] [facility] mmol/L [facility] Carbon Dioxide 26 20 - 32 [place] [facility] mmol/L [facility] Anion Gap 13 6 - 17 [place] [facility] mmol/L [facility] Glucose 110 60 - 110 [place] [facility] mg/dL [facility] Urea Nitrogen 18 7 - 30 [place] [facility] mg/dL [facility] Creatinine 0.70 0.60 - [place] [facility] 1.30 mg/dL [facility] GFR Estimate >90 >60 [place] [facility] mL/min/1.7 [facility] m2 GFR Estimate If >90 >60 [place] [facility] Black mL/min/1.7 [facility] LAB m2 Calcium 9.6 8.5 - 10.4 [place] [facility] mg/dL [facility] Bilirubin Total 0.3 0.2 - 1.3 [place] [facility] mg/dL [facility] Albumin 4.3 3.2 - 4.5 [place] [facility] g/dL [facility] Protein Total 7.5 6.0 - 8.2 [place] [facility] g/dL [facility] Alkaline 96 40 - 150 [facility]L [facility] ALT 33 0 - 50 [facility] AST 24 0 - 45 [facility] Specimen Anatomical Collection Method Collection Time Receive d Time (Source) Location / / Volume Laterality 04/15/2006 11:33 04/15/2006 AM JORDAN WORKER 11:38 AM JORDAN WORKER Fernanda Fernandez MD LABORATORY Performing Organization Address City/State/ZIP Code Phon e Number [facility] [address] [place] [address] [facility] (ABNORMAL) A.M.A. LIPID PANEL (04/15/2006 11:33 AM JORDAN WORKER) athologist Signature Cholesterol 163 0 - 200 [facility] mg/dL CLINIC LAB Comment: LDL [...] Triglycerides 248 (H) 0 - 150 mg/dL [facility] HDL Cholesterol 26 (L) 50 - 110 mg/dL [facility] LDL Cholesterol Calculated 88 0 - 129 mg/dL [facility] Comment: LDL Cholesterol is the primary guide to therapy: LDL-cholesterol goal in high risk patients is <100 mg/dL and in very high risk patients is <70 mg/dL. VLDL-Cholesterol 50 (H) 0 - 30 mg/dL [facility] Cholesterol/HDL Ratio 6.2 (H) 0.0 - 5.0 [facility] Specimen Anatomical Collection Method Collection Time Receive d Time (Source) Location / / Volume Laterality 04/15/2006 11:33 04/15/2006 AM JORDAN WORKER 11:38 AM JORDAN WORKER Fernanda Fernandez MD LABORATORY Performing Organization Address City/State/ZIP Code Phon e Number [address] [address] [facility] documented in this encounter Visit Diagnoses Diagnosis Routine general medical examination at a health care facility - Primary Unspecified hereditary and idiopathic pe ripheral neuropathy Mixed hyperlipidemia Unspecified cardiovascular disease documented in this encounter Care Teams Tractor Mechanic Apprentice Relationship Specialty Start Date End Date Fernanda Fernandez MD PCP - General 04/16/01 05/23/21 documented as of this encounter
--- OUTSIDE RECORDS SUMMARY | 2022-02-06 21:36 | XMS_ITS | Encounter Summary ---
:1945 Author Organization [place] Address [address] [place] [address] Care Team Providers Name Role Phone Tiffany Leonard MD Primary Care Provider [phone] Encounter Details Date Type Department Care Team Description 09/27/2006 [facility] MD Sarabjit [address] [facility] [address] [phone] [place] [address] (Wo rk) Social History Tobacco Use [...] mg p.o. b.i.d. (dosed twice daily by [place] teacher instrumental). 4.Alendronate 70 mg p.o. q. week. New [...] MD MT: varun Name: ORLIN NUNEZ Account: [id number] : 1945 Admit Date: [id number] Discharge Date: 2006 Document: [id number] cc: Tiffany Leonard MD documented in this encounter Plan of Treatment Not on filedocumented as of this encounter Visit Diagnoses Not on filedocumented in this encounter Care Teams Jar Capper Relationship Specialty Start Date End Date Tiffany Leonard MD PCP - General 04/16/01 05/23/21 documented as of this encounter
--- OUTSIDE RECORDS SUMMARY | 2022-02-06 21:36 | XMS_ITS | Encounter Summary ---
:1945 Author Organization [place] Address [address] [place] [address] Care Team Providers Name Role Phone Tiffany Leonard MD Primary Care Provider [phone] Encounter Details Date Type Department Care Team Description 07/08/2006 Orders Only [facility] Tiffany Leonard DIAGNOSIS NOT YET Clinic [place] Marinelli MD DEFINED (Primary Dx) [address] [address] [place] [address] [address] [place] [address] Social History Tobacco Use Types [...] Primary documented in this encounter Care Teams Electrical Wiring Lineman Relationship Specialty Start Date End Date Tiffany Leonard MD PCP - General 04/16/01 05/23/21 documented as of this encounter
--- OUTSIDE RECORDS SUMMARY | 2022-02-06 21:38 | XMS_ITS ---
[...] Active ? Not yuval ilable Flublok Quad [id number] (PF) 180 mcg (45 mcg x 4)/0.5 [...]
--- OUTSIDE RECORDS SUMMARY | 2022-02-06 21:38 | XMS_ITS | Clinical Summary ---
:1945 Author Organization [facility] [place] [address] Care Team Providers Name Role Phone Pcp, No Unavailable Unavailable Gumaro Powell MD Primary Care Provider [phone] Allergies Active Allergy Reactions Severity Noted [...] unspecified vessel or lesion type, unspecified whether grand traverse or transplanted heart losartan (COZAAR) 25 Take 2 tablets by 180 tablet 3 12/11/2017 Active mg tabletIndications: mouth at bedtime. 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 Hyperlipidemia, unspecified 12/07/2015 Breast cancer 12/07/2015 Overview: She underwent mastectomy in 1997 without chemo, and in 2003 underwent radiation and chemo. Heart disease 12/07/2015 Overview: History of large WV in 1988, found to jeffries ve LAD lesion. Has a family history of Father with WV, and bother with WV in his 20's. - 12/15: s/p NAY [...] Organization Address City/State/ZIP Code Phon e Number [facility] [id number] [place] [address] LABORATORY-CENTRAL 2000 LABORATORY PATH TISSUE EXAM (12/05/2021 2:45 PM CDT) Component Value Ref Test Analysis Performed At [facility] gist Range Method Time Signature Case Report Pathology Report ?Case: [id number] ? 12/10/2021 [facility] Authorizing Provider: ??Sreekanth dotson, Zhen Mas MD ?? Collected: ? 12/05/2021 1445 ? 6:39 AM CDT LABORAT ORY-CE Ordering Location: ? [facility] C[facility]TRAL LAB ?Received: ?12/06/2021 1720 ? NT [facility] Pathologist: ? Danette Wilson MD ? LABORATORY Specimen: ?Nose ? Final A) SKIN, NOSE, BIOPSY: 12/10/2021 [facility] Electronically Diagnosis 1. Superficial aspect of benign squamous lined cyst, s ee comment 6:39 AM CDT LABORATORY-CE signed by 2. No malignancy seen in this sample NTRAL Danette Wilson MD o n 12/10/2021 at 6:39 AM Comment Deeper levels 12/10/2021 [facility] were examined 6:39 AM CDT LABORATORY-CE to rule out a NTRAL malignancy. LABORATORY Only the superficial aspect of the most benign squamous lined cyst is seen. Please correlate with the clinical findings. If suspicion for neoplasm persists, additional sampling may be informative. Clinical Atypical 12/10/2021 [facility] Information lesion 6:39 AM CDT LABORATORY-CE NTRAL LABORATORY Gross A) Received in formalin, lab eled with the patient's name and left nasolabial fold, is a 0.4 x 0.3 cm skin biopsy. The skin surface is smooth and an obvious lesion is not identified. ??The specimen is 12/10/2021 [facility] Description inked blue, bisected and entirely submitted in one yana sette. 6:39 AM CDT LABORATORY-CE NTRAL SSS 12/06/2021 LABORATORY Microscopic The final 12/10/2021 [facility] Description diagnosis is 6:39 AM CDT LABORATORY-CE based on NTRAL microscopic LABORATORY examination of appropriate sections of all specimens. Additional 12/10/2021 [facility] Information Interpreted at [facility], Central Laboratory - [address], [place] [address] 6:39 AM CDT LABORATORY-CE NTRAL LABORATORY Specimen Anatomical Collection Method Collection Time Receive d Time (Source) Location / / Volume Laterality Other SPECIMEN FROM NOSE 12/05/2021 2:45 PM 08/2021 5:20 / Unknown CDT PM CDT Zhen Galicia MD PATHOLOGY/CYTOLOGY Performing Organization Address City/State/ZIP Code Phon e Number [facility] [id number] [place] [address] LABORATORY-CENTRAL 2000 LABORATORY from Last 3 Months Insurance Payer Benefit Plan / Subscriber ID Effective Dates Phone Addre ss Type Group MEDICARE PART B MEDICARE PART B [id number] 2010-Present ATTN: CLAIMS - HB USE ONLY HB ONLY [address] [place] [address] MEDICARE PART A MEDICARE PART A [id number] 2010-Present ATTN: CLAIMS - HB USE ONLY HB ONLY [address] [place] [address] MEDICARE - PB MEDICARE PB [id number] 2010-Present ATT N: CLAIMS USE ONLY ONLY [address] [place] [address] FOR [id number] 2005-Present [address] [place] [address] (Home) [place] [address] Advance Directives Latest Code Status on File Code Status Date Activated Date Inactivated Comments Full Code 08/12/2018 8:28 AM 08/12/2018 1:21 PM Full Code 12/09/2015 8:36 AM 12/11/2015 3:29 PM Full Code 12/07/2015 9:43 PM 12/09/2015 8:36 AM Code Status Discussion: Discussed Care Teams Felt Hanger Relationship Specialty Start Date End Date Gumaro Powell MD PCP - General Family Practice 12/28/15 [facility] [place] [address] Pcp, No 12/07/15 .
[2022-02-06 22:11] LABS: Basophils Absolute Auto 0.03 K/uL (0.00-0.30); Basophils Percent Auto 0.4 % (0.0-3.0); Eosinophils Absolute Auto 0.16 K/uL (0.00-0.50); Eosinophils Percent Auto 2.4 % (0.0-7.0); Hematocrit 35.1 % (33.0-51.0); Hemoglobin* 11.2 gm/dL (12.0-16.0); Immature Granulocytes Abs Auto 0.01 K/uL (0.00-0.30); Immature Granulocytes Pct Auto 0.1 %; Lymphocytes Absolute Auto 1.37 K/uL (0.90-2.90); Lymphocytes Percent Auto 20.1 % (20-44); Mean Corpuscular HGB Conc 32 gm/dL (32-36); Mean Corpuscular Hemoglobin 28 pg (26-34); Mean Corpuscular Volume 87 fL (80-100); Monocytes Percent Auto 11.5 % (0.0-11.0); Neutrophils Absolute Auto 4.45 K/uL (1.7-7.0); Neutrophils Percent Auto 65.5 % (42.0-72.0); Platelet Count* 234 K/uL (140-440); RDW Coefficient of Variation % 13.7 % (11.5-15.5); Red Blood Count 4.04 m/uL (4.00-5.20)
[2022-02-06 22:12] LABS: Slide Review Reflex No
[2022-02-06 22:13] LABS: C Reactive Protein* 1.2 mg/dL (0.5-1.0)
== END 2022-02-06 23:46 | disposition home or self-care (01) ==
PROVIDERS: Emergency Provider Family Medicine; PCP Internal Medicine
DX: M25.511 Pain in right shoulder (principal); I97.2 Postmastectomy lymphedema syndrome; R22.31 Localized swelling, mass and lump, right upper limb
CPT/HCPCS: 36415; 85025; 86140; 93971; 99284

== ENCOUNTER 2022-03-13 13:14 | Outpatient (CLI) | payer MEDICARE, OTHER, SELFPAY ==
--- NOTE | 2022-03-13 13:30 | CRLHL7_ITS ---
For Patients: As a result of the Century Cures Act, medical imaging exams and procedure reports are released immediately into your electronic medical record. You may view this report before your referring provider. If you have questions, please contact your health care provider. DXA BONE MINERAL DENSITY STUDY Current height (in): 65.0. Weight (lb): 138.0. Menopause age: 46. Ethnicity: White. 1. Have you had a previous hip or vertebral fracture? No. 2. Have you had any fractures during your adult life which did not result from significant trauma (e.g., auto accident)? No. 3. Did either of your parents have a hip fracture? No. 4. Do you smoke? No. 5. Have you ever taken Glucocorticoids? No. 6. Do you have rheumatoid arthritis? No. 7. Do you have secondary osteoporosis? No. 8. Do you drink 3 or more alcoholic drinks per day? No. 9. Are you being treated for osteoporosis? No. 10. Have you ever taken any of the following medications: Actonel, Evista, Fosamax, Miacalcin, Reclast, Boniva, Forteo, HRT (i.e. estrogen/hormone therapy), Protelos, Prolia, Vitamin D, Calcium, other ??? please specify. ANSWER: Yes, Fosamax, vitamin D, Viactin. 11. Do you have any of the following medical conditions: Anorexia or bulimia, asthma or emphysema, end stage renal disease, hyperparathyroidism, any seizure disorders, cancer, inflammatory bowel diseases, hysterectomy, other ??? please specify. ANSWER: Yes, cancer, hysterectomy. 12. What was your maximum height (inches)? 65.5. 13. Do you perform weight bearing exercise regularly? Yes. 14. Do you regularly consume dairy products? Yes. 15. Do you drink caffeinated beverages? Yes. 16. At what age did your period start? 14. 17. Are you premenopausal? No. 18. How many full term pregnancies have you had? 4. 19. Have you ever missed your period for more than 6 months in a row (not including or menopause)? No. TECHNIQUE: Bone mineral density study was performed using the [employer]. FINDINGS: The results of the study expressed as bone mineral density (BMD) are as follows: Lumbar spine L1 to L4: BMD: 0.875 g/cm2. T-score: -1.6. Z-score: 0.9. Neck Left: BMD: 0.740 g/cm2. T-score: -1.0. Z-score: 1.2. Right: BMD: 0.752 g/cm2. T-score: -0.9. Z-score: 1.3. Total Left: BMD: 0.782 g/cm2. T-score: -1.3. Z-score: 0.6. Right: BMD: 0.815 g/cm2. T-score: -1.0. Z-score: 0.8. IMPRESSION: Osteopenia. *Comparison exams done prior to 08/2019 were performed on different unit, [facility]. COMPARISON: Compared with scan of 03/31/2019, the bone mineral density has increased by 5.9 percent at the spine and decreased by 5.6 percent at the hips. Compared with scan of 10/16/2016, the bone mineral density has decreased by 6.2 percent at the spine and decreased by 6.5 percent at the hips. FRAX 10-year Fracture Risk Major Osteoporotic Fracture: 9.9 percent Hip Fracture: 1.7 percent Reported Risk Factors: [place] () Neck BMD=0.740, BMI=23.0 Wero Becker M.D. Diagnostic Radiologist [email or web address] YISSEL/lala / be/Dictated by: Wero Becker MD @ 03/14/2022 3:21:00 PM (Electronically Signed)
== END 2022-03-13 13:15 | disposition home or self-care (01) ==
LOC: RAD 13:15
PROVIDERS: PCP Internal Medicine; Visit Provider Internal Medicine
DX: M81.0 Age-related osteoporosis without current pathological fracture (principal); M85.89 Other specified disorders of bone density and structure, multiple sites
CPT/HCPCS: 77080

== ENCOUNTER 2022-05-14 09:00 | Outpatient (RCR) | payer MEDICARE, OTHER, SELFPAY ==
--- NOTE | 2022-02-19 14:50 | OT.OPLE ---
OT Outpatient Lymphedema Eval OT Outpatient Lymphedema Eval Start: 02/19/22 12:28 Freq: Status: Active Protocol: Document 02/19/22 12:34 AMB (Rec: 02/19/22 14:50 AMB [id number]) E-signed By Polly Chavez, OTR/L, CLT, ASSESSOR OT Outpatient Evaluation Details Type Type Eval Complexity Medium OT OP Lymphedema Evaluation Insurance Information Insurance Information Medicare B Current Condition/Medical Diagnosis Referring Provider Dr Naidu Treatment Diagnosis RUE lymphedema, post mastectomy syndrome Date Of Onset Chronic Medical Contraindications DM,Heart Condition,HTN,CA, Arthritis,Osteoporosis,Latex Allergy Current Work Status Current Work Status Retired Subjective Subjective Pt states she was diagnosed with breast cancer in 1997, underwent a mastectomy with multiple SLN removed, she can' t remember but states, It was a LOT. She also had radiation and chemo, she had a recurrence of breast CA in 2001. Pt states she was diagnosed with lymphedema in 2006 or 2007, she can't remember. Pt had therapy, states she had to drive to the [employer] and got wrapped, It was such a bulky wrap that it actually caused me to have a rotator cuff tear. pt did not have her RCT repaired. Pt did get a custom sleeve and an OTS compression glove, also has a Caresia for night time. Pt has not been wearing any compression for several years. Pt has had multiple episodes of cellulitis with the most recent being 2 weeks ago. Pt was treated with antibiotics. Pt states she quit wearing her sleeve as it was too hard to put on and feels it was rubbing and she was worried that it was causing infections . Pt requests to not wrap her hand and to go light on the wraps as the heavy wrap will irritated her shoulder. 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 If swelling in the hand occurs, pt is to unwrap her arm and wait until next session as we will need to institute wrapping of her hand as well. Medical History Medical History Cancer Treatment/Surgery,Heart Disease,Cellulitis/Infection, DM,Renal Disease,HTN,Radiation ,Chemo,Arthritis Medical History Comments LATEX ALLERGY Diabetes mellitus, type 2 Coronary artery disease occlusion of LAD at age 42; stenting December 2015 @ [facility]; had one year of Plavix, on chronic aspirin Myocardial infarction occlusion of LAD at age 42; stenting December 2015 @ [facility]; had one year of Plavix, on chronic aspirin Hypertension Hyperlipidemia Breast cancer diagnosed in 1997; recurrence in 2001; pt referred to [facility] by [facility]R 05/2016 for evaluation of possible recurrence given shoulder pain. [place] Followed by rheumatology/[facility] in the past, on cevimeline Routine medical exam Neuropathy Mild; secondary to chemotherapy, on gabapentin Chronic kidney disease, stage [address] Garza, [facility] public health professor Essential tremor Noted November 2020 of the head /neck Osteopenia Dexa scan 2019; T score =-2.2; Fosamax considered 04/2019; public health professor recommended against fosamax and continued weight bearing exercises. 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 GI bleed Pt had GI bleed due to nsaids (diagnosed by [facility]); trial Oct 2020 off of prevacid; hemoccult positive; prevacid restarted November 2020 due to aspirin Surgical Problems: History of hysterectomy H/O mastectomy History of bunionectomy of both great toes History of coronary artery stent placement History of bilateral cataract extraction History of colonoscopy 01/2018; repeat 01/2023; 1x tubular adenoma Surgical History Surgical History See above Medications Medications Last Reconciled 02/10/22 by Olesya Schaffer CMA aspirin 81 mg PO QDAY atenolol 25 mg PO QDAY gabapentin 600 mg PO BID lansoprazole 30 mg PO QDAY losartan 25 mg PO BID metformin 500 mg PO BID rosuvastatin 40 mg PO QDAY Family History Family History of Lymphedema No Living Situation Current Living Situation Home With Spouse Or SO Patient Difficulties Patient Difficulties Comments Fitting into shirts secondary to her RUE size. Exercise History Does Patient Exercise Regularly Yes Exercise Comments Pt states Pain Pain Yes Pain Comments 1-2/10 in her shoulder secondary to the heaviness of her swollen arm combined with her RCT. Loss of Function/Strength/Mobility Loss Of Function/Strength/Mobility Yes Loss Of Function/Strength/Mobility Difficulty moving her RUE Comments shoulder due to the heaviness of her arm and RCT Previous Treatment Previous Treatment For Swelling/ MLD,Compression Garment,Multi- Lymphedema Layer Compression Bandages, Exercise,Elevation,Self Massage Compression History Does Patient Currently Wear Compression Yes During Daytime Compression During Daytime Comments Pt had Exo Strong sleeve and glove as well as a Medi sleeve . However, pt has since thrown them away, states she hasn't worn compression for years. Pt also has a Carissia to wear at night. States she has been wearing this recently . Does Patient Currently Wear Compression Yes At Night Compression At Night Comments Carissia Current Swelling (Location/Pitting/Texture) Pitting Scale: 0 = No pitting 1+ Tissue returns to normal almost immediately 2+ Tissue returns after 15-30 seconds 3+ Tissue returns after 1-1/2 minutes 4+ Tissue returns after 2-3 minutes N/A Tissue no longer pits due to induration Tissue texture: Soft or indurated Clinical Presentation Area RUE arm with swelling mostly in the forearm and lower upper arm/elbow, hand is spared. Clinical Presentation Pitting Gr 3 lymphedema with soft, very mild pitting in the forearm, Stemmer's is (-) Clinical Presentation Texture Soft Triggering Event & Start Date of Breast cancer surgery / Swelling/Lymphedema treatment with total axillary dissection Type of Swelling Post Surgery/Traumatic Edema Staging Staging Stage 3 Circumferential Measurements Upper Extremity Left Upper Extremity MCP 18.8 Palm 19.4 Wrist 17.3 10cm 20.0 20cm 26.5 30cm 29.0 40cm 31.5 50cm 35.5 Total 198.0 Right Upper Extremity MCP 19.0 Palm 19.5 Wrist 19.0 10cm 25.5 20cm 30.6 30cm 33.5 40cm 32.0 50cm 35.0 Total 214.1 Assessment Assessment Pt presents to OT with gr 3 lymphedema in her RUE secondary to breast cancer related surgery (LN removal) and radiation therapy. Pt has mild pitting edema in the forearm, also appears to have some swelling in the axilla / lateral trunk. Pt has limited strength and ROM in the RUE shoulder due to RCT. Pt will benefit from skilled OT intervention to address swelling in her RUE, promoting reduction which will decrease risk for recurrent cellulitis and further lymphedema related complications. Pt was seen for an OT evaluation for lymphedema in July of this year but was unable to follow through with treatment as her sister became ill and she needed to spend time with her. Measurements were taken in July and compared to today's measurements. The RUE total measurement is 3.4cm larger than it was in July, the LUE total measurement is 1.5cm smaller than it was in July. Impairments Impairments Difficulties With ADLs,Limb Heaviness,Poor Clothing Fit Problem List Problem List Limited Knowledge of Lymphedema Treatment/Condition /Precautions,Significant Risk For Infection For Lymphedema Related Complications,Does Not Have a HEP,Does Not Know How To Bandage For Limb Reduction, Does Not Have Appropriate Compression Garments For LT Management Problem List Comments Pt has had multiple bouts of cellulitis over that past several years ~ 3-4x every year requiring IV antibiotics which has unfortunately likely created more scar tissue making lymph drainage even more difficult. Pt also has scar tissue in her trunk from mastectomy and radiation which increases risk for developing chest wall / trunk lymphedema . In addition to this, pt has a rotator cuff tear in the RUE which makes it difficult to complete and maintain ROM / exercise that may help reduce swelling. Patient Goals Short Term Goals (# of Weeks) 8 Click To Default Short Term Goals Standard Goals Short Term Goals Goal 1: Patient and or caregiver will understand lymphedema precautions to decrease risk of infection and further lymphedema related complications Goal 2: Patient will develop a tolerance for wearing multi-layer, short stretch bandages between treatment sessions to facilitate limb decongestion Goal 3: Patient will experience decreased pitting edema in order to improve tissue health and decrease risk for infection/cellulitis Goal 4: Patient will perform HEP with minimal assistance in order to improve lymphatic flow and venous return Goal 5 : Patient will perform self MLD protocol with minimal assistance to help reduce swelling and improve ROM and mobility Cobbler Upper Goals (# of Weeks) 12 Click To Default Fci Goals Standard Goals Cobbler Upper Goals Goal 1: Patient will achieve a specific reduction of 10cm from total measurements to enable functional improvements such as fitting into standard sized clothing. 2. Pt will obtain appropriate compression garment for daily use in order to maintain reductions achieved with short stretch bandage and to reduce risk for cellulitis and further lymphedema related complications. Goal 3: Patient and/or caregiver will be independent with HEP and lymphedema management to reduce risk for edema relapse and to reduce risk for infection Treatment Plan Treatment Plan Evaluation,Edema Control, Manual Therapy,Wound Care/Scar Management,Therapeutic Exercise,Therapeutic Activities,Self-Care/Home Management,Caregiver Training, Education Expected Frequency 2-3x Week Expected Duration 10-12 Certification Certification I Certify That: Therapy Services Provided, Therapy Plan Established, Therapy Plan Reviewed Recertification Information Recertification Information Initial Certification Date 02/19/22 Recertification Due Date 05/20/22 Reasons to Continue Skilled Therapy Initiating OT today for lymphedema treatment in order to reduce swelling, obtain appropriate compression for day time and to reduce risk for cellulitis and further lymphedema related complications. Rehabilitation Potential Good Continued Plan of Care and Interventions See above Provider Signature Shows Agreement With POC & Medical Necessity Physician Comment/Change Comment or Changes Physician NPI Number #
== END 2022-09-18 23:59 | disposition home or self-care (01) ==
PROVIDERS: PCP Internal Medicine; Visit Provider Internal Medicine
DX: I97.2 Postmastectomy lymphedema syndrome (principal); Z51.89 Encounter for other specified aftercare
CPT/HCPCS: 97110; 97140; 97166; 97535; X5282

== ENCOUNTER 2022-06-23 13:36 | Outpatient (CLI) | payer MEDICARE, OTHER, SELFPAY ==
--- NOTE | 2022-06-23 14:00 | CRLHL7_ITS ---
For Patients: As a result of the Century Cures Act, medical imaging exams and procedure reports are released immediately into your electronic medical record. You may view this report before your referring provider. If you have questions, please contact your health care provider. LEFT BREAST SCREENING MAMMOGRAM WITH COMPUTER-AIDED DETECTION AND TOMOSYNTHESIS TECHNIQUE: CC and MLO views were obtained. These mammographic images have been obtained using full-field digital technique. These mammographic images were interpreted with the benefit of computer-aided detection. Breast Tomosynthesis was used in this interpretation. COMPARISON FILM: 06/10/21, 05/21/20, 03/31/19 FINDINGS: There are scattered areas of fibroglandular density. IMPRESSION: There is no radiographic evidence for malignancy. ASSESSMENT: BI-RADS Category 1: Negative RECOMMENDATION: Routine screening mammogram in 1 year. A lay language report of this examination will be provided to the patient. Junior Clemons M.D. Diagnostic/Nuclear Medicine Radiologist [email or web address] Transcribed: 8:38 a.m. PT/Dictated by: Junior Clemons MD @ 06/24/2022 8:25:00 AM (Electronically Signed)
== END 2022-06-23 13:37 | disposition home or self-care (01) ==
LOC: MAMMO 13:37
PROVIDERS: PCP Internal Medicine; Visit Provider Internal Medicine
DX: Z12.31 Encounter for screening mammogram for malignant neoplasm of breast (principal)
CPT/HCPCS: 77063; 77067

== ENCOUNTER 2023-02-13 11:09 | Outpatient (CLI) | payer MEDICARE, OTHER, SELFPAY ==
--- OUTSIDE RECORDS SUMMARY | 2023-02-13 11:11 | XMS_ITS | Continuity of Care Document ---
Author Name Unknown Organization [facility] Address [address] [place] [address] Phone Care Team Providers Care [place] [employer] Member Name Role Phone Stewart Chris DO Unavailable Unavailable Allergies, Adverse Reactions, Alerts Substance Reaction Status Criticality Sulfa (Sulfonamide Antibiotics) Active No Information latex Active No Information Medications Medication Instructions Dosage Effective Dates (start - stop) Status Comments cevimeline 30 mg capsule take 1 capsule by oral route 4 times every day 30 MG - Active metformin 500 mg tablet take 1 tablet by oral route 2 times every day with morning and evening meals 500 MG - Active pravastatin 40 mg tablet take 1 tablet by oral route every day 40 MG - Active losartan 25 mg tablet take 1 tablet by o ral route every day 25 MG - Active lansoprazole 30 mg capsule,delayed release take 1 Capsule by oral route every day before a meal 30 MG - Active atenolol 25 mg tablet take 1 tablet by o ral route 2 times every day 25 MG - Active gabapentin 300 mg capsule take 1 capsule by oral route 3 times every day 300 MG - Active Bufferin 81 mg tablet Take 1 daily - Activ e Viactiv 500 mg-500 unit-40 mcg chewable tablet BID - Active Tylenol PM Extra Strength 25 mg-500 mg tablet take 1 Tablet by oral route every day at bedtime 1 Tablet - Active Procedures Procedure Date Office/Outpatient Visit, Est Office/Outpatient Visit, New Routine Venipuncture Complete Cbc WAuto Diff Wbc Rbc Sed Rate, Nonautomated CReactive Protein Antinuclear Antibodies Advance Directives Directive Yes / No Effective Date File Name No Information Encounters Encounter Description Practice Location Reason(s) For Visit Diagnoses Date Provider Providers Copied on Encounter Office/Outpa tient Visit, Est [facility], [address], [place], [address], [place] tel:[phone] [facility], Dry mouth (chief complaint) Dry mouthOther fatigue 5 Aries William. [facility] [address], [place], [address], [place]. tel:[phone] Referring Provider: Stewart Houston, [facility] [address], [place], [address]. tel:[phone] Office/Outpa tient Visit, New [facility], [address], [place], [address], [place] tel:[phone] [facility], Dry Mouth (chief complaint) Dry mouthOther fatigue 5 Aries William. [facility] [address], [place], [address], [place]. tel:[phone] Referring Provider: Stewart Houston, [facility] [address], [place], [address]. tel:[phone] Family History Family Member Type Diagnosis Age At Onset Brother Problem (finding) colitis Payers Payer name Insurance type Covered constitution party ID Authoriza tion(s) Medicare MB [id number] [employer] [id number] Social History Type Description Quantity Date Captured Comments Alcohol Use Details Unknown Caffeine Use Details Unknown Tobacco Use Status Ex-cigarette smoker 015 Smoking Status Former smoker Sex Female Vital Signs Date / Time: Height Weight BMI Pulse Rate Blood Pressure Temperature Respiratory Rate Body Surface Area Head Circumference Head Circ. Percentile Wt./Don. Percentile BMI percentile Pulse Ox Inhaled Ox 11:11 AM 163.83 cm 128/74 mm[Hg] Chief Complaint And Reason For Visit From encounter dated '01/30/2015 10:45'. Dry mouth (chief complaint) Reason For Referral Reason For Referral No Information History Of Present Illness Encounter Date Complaint History Of Prese nt Illness Dry mouth Dry Mouth Functional Status Date Functional Assessmen t No Information Instructions Date Instruction Additional Infor mation No Information Assessments Type Assessment Date assessment Dry mouth assessment Other fatigue Mental Status Date Cognitive Assessment Orientation - [place] ed to time, place, person, situation. Patient Care Teams Name Effective Dates (start - stop) Status Members No Information
--- NOTE | 2023-02-13 11:33 | W.ANESCHARGE ---
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
== END 2023-02-13 11:10 | disposition home or self-care (01) ==
LOC: OP CLINIC 11:10
PROVIDERS: PCP Internal Medicine; Visit Provider Internal Medicine
DX: Z53.9 Procedure and treatment not carried out, unspecified reason (principal)

== ENCOUNTER 2023-03-03 07:58 | Outpatient (CLI) | payer MEDICARE, OTHER, SELFPAY ==
--- OUTSIDE RECORDS SUMMARY | 2023-03-09 12:56 | XMS_ITS | Clinical Summary ---
Author Name Unknown Organization [facility] Address [address] [place] [address] Care Team Providers Care Through Freight Engineer Name Role Phone Elsewhere, Pcp Primary Care Provider Unavailabl e Source Comments Patient records contain information from all sites at [facility]. For routine questions regarding patient records, call [phone] during business hours, M-F 8:00 AM - 5:00 PM Central Time. Record requests for emergency care only can be directed to [phone] at any time.[facility] Allergies Active Allergy Reactions Criticality Noted Date Comments Adhesive Tape-Silicones Rash 04/05/2013 Atorvastatin Edema (Reselect Reaction) 02/27/2005 Latex Hives (Reselect Reaction),Itching 08/25/2003 Bandaids and other contact Lisinopril Cough 12/07/2015 Preservative Angioedema (Reselect Reaction) 12/07/2015 Saline Preservative Sodium Chloride Other (see comments) 03/14/2022 Sulfa (Sulfonamide Antibiotics) Hives (Reselect Reaction),Rash Low 08/12/2002 Medications Medication Sig Dispensed Refills Start Date End Date Status aspirin [address] tablet Take 81 mg by mouth daily. 0 Active atenoloL-chlorthali done (TENORETIC) 100-25 mg per tablet Take 25 mg by mouth daily. 0 01/31/2022 Active gabapentin (NEURONTIN) 600 mg tablet Take 600 mg by mouth 2 (two) times a day. 0 11/26/2021 Active lansoprazole (PREVACID) [address] capsule Take 30 mg by mouth daily. 0 09/10/2021 Active losartan (COZAAR) 25 mg tablet Take 25 mg by mouth 2 (two) times a day. 0 01/31/2022 Active metFORMIN (GLUCOPHAGE) 500 mg tablet Take 500 mg by mouth 2 (two) times a day. 0 11/26/2021 Active multivitamin with minerals capsule Take 1 tablet by mouth daily. 0 06/22/2010 Active rosuvastatin (CRESTOR) 40 mg tablet Take 40 mg by mouth daily. 0 09/10/2021 Active atenoloL (TENORMIN) 25 mg tablet Take 1 tablet by mouth daily. 0 01/31/2022 Active gabapentin (NEURONTIN) 600 mg tablet Take 2 tablets by mouth every evening. 0 06/03/2021 Active lansoprazole (PREVACID) [address] capsule Take 1 capsule by mouth daily. 0 04/17/2021 Active nitroglycerin (NITROSTAT) 0.[address] 0.4 mg under the tongue every 2 (two) hours as needed. 0 01/16/2017 Active rosuvastatin (CRESTOR) 40 mg tablet Take 1 tablet by mouth daily. 0 01/18/2019 Active cefadroxil (DURICEF) 1 gram tablet Take 1 g by mouth as needed. 0 10/04/2022 Active UNABLE TO FIND Take 1 each by mouth daily. Med Name: VIACTIV CALCIUM 0 Active penicillin V potassium (VEETIDS) 500 mg tablet Take 1 tablet (500 mg total) by mouth 2 (two) times a day. 180 tablet 1 12/10/2022 06/08/2023 Active Active Problems Problem Noted Date Diagnosed Date Anemia Iron Deficiency 08/04/2022 Atherosclerotic Heart Diseas e Of [place] Coronary Artery Without Angina Pectoris 02/03/2022 Diabetes Mellitus Type 2 Without Complication Lymphedema Post Mastectomy 02/03/2022 Cellulitis Arm Right 02/03/2022 Hysterectomy Abdominal Status Post 02/03/2022 Pain Shoulder Right 02/03/2022 Cancer Breast Personal History 04/06/2019 Sjogren's (Sicca) Syndrome 04/06/2019 Proteinuria 04/06/2019 Myocardial Infarction Old 08/23/2002 Hyperlipidemia 08/23/2002 Hypertension And Chronic Kidney Disease Stage 1 08/23/2002 Encounters Date Type Department Care Team Description 12/10/2022 11:30 AM CDT Telemedicine Section of Infectious Diseases in [place], [place] [address] [place] [address] Nguyen Beard M.B., ChAlexiB. Cellulitis (Primary Dx) 12/08/2022 9:45 AM CDT Clinical Communication Virtual Review in [address] [address] Pre-visit Intake from Last 3 Months Immunizations Name Administration Dates Next Due HZV (ZOSTAVAX) 04/08/2011 Influenza Split 12/08/2013,12/20/2012 PPSV23 04/08/2011 Tdap 08/10/2007 Social History Tobacco Use Types Packs/Day Years Used Date Smoking Tobacco: Former Cigarettes 1 Q uit: 1988 Smokeless Tobacco: Never Tobacco Cessation:Counseling Given: Not Answered Humiliation, Afraid, Rape, and Kick questionnair e Answer Date Recorded Within the last year, have y ou been afraid of your partner or ex-partner? No 06/10/2022 Within the last year, have y ou been humiliated or emotionally abused in other ways by your partner or ex-partner? No Within the last year, have y ou been kicked, hit, slapped, or otherwise physically hurt by your partner or ex-partner? No 06/10/2022 Within the last year, have y ou been raped or forced to have any kind of sexual activity by your partner or ex-partner? No 06/10/2022 Social Connection and Isolat ion Panel [NHANES] Answer Date Recorded In a typical week, how many times do you talk on the phone with family, friends, or neighbors? More than three times a week 06/10/2022 How often do you get togethe r with friends or relatives? More than three times a week 06/10/2022 How often do you attend chur or church services? More than 4 times per year 06/10/2022 Do you belong to any clubs o r organizations such as jehovah's witness groups, unions, fraternal or athletic groups, or school groups? Yes 06/10/2022 How often do you attend meet ings of the clubs or organizations you belong to? More than 4 times per year 06/10/2022 Are you , , di vorced, , never , or living with a partner? 06/10/2022 AUDIT-C Answer Date Recorded Q1: How often do you have a drink containing alc ohol? Never 06/10/2022 Average Number of Drinks Not on file 023 Frequency of Binge Drinking Not on file 05/31 Overall Financial Resource Strain (CARDIA) Answe r Date Recorded How hard is it for you to pa y for the very basics like food, housing, medical care, and heating? Not hard at all 06/10/2022 [facility] - Occupational Stress Questionnaire Answer Date Recorded Do you feel stress - tense, restless, nervous, or anxious, or unable to sleep at night because your mind is troubled all the time - these days? Not at all 06/10/2022 Exercise Vital Sign Answer Date Recorde d On average, how many days pe r week do you engage in moderate to strenuous exercise (like a brisk walk)? 4 days 06/10/2022 On average, how many minutes do you engage in exercise at this level? 40 min 06/10/2022 Hunger Vital Sign Answer Date Recorded Within the past 12 months, y ou worried that your food would run out before you got the money to buy more. Never true 06/11/19 23 Within the past 12 months, t he food you bought just didn't last and you didn't have money to get more. Never true 06/10/2022 PRAPARE - Transportation Answer Date Re corded In the past 12 months, has l ack of transportation kept you from medical appointments or from getting medications? No 05/31 In the past 12 months, has l ack of transportation kept you from meetings, work, or from getting things needed for daily living? No 06/10/2022 Housing Stability Vital Sign Answer [place] e Recorded In the last 12 months, was t here a time when you were not able to pay the mortgage or rent on time? No 06/10/2022 In the last 12 months, how many places have you lived? 1 06/10/2022 In the last 12 months, was t here a time when you did not have a steady place to sleep or slept in a senior care (including now)? No 06/10/2022 Nutrition Answer Date Recorded Nutrition: EVOO Fat Source No 06/10 On average, how many serving s of fruits and vegetables do you eat per day (serving size is equal to 1 cup or approximately the size of a tennis ball)? 2-3 06/10/2022 Dental Answer Date Recorded Dental: Regular Dentist Yes 03/02/19 Employment Answer Date Recorded Employment status Retired 06/10/2022 Education Answer Date Recorded What is the highest level of school you have completed or the highest degree you have received? 12th grade 07/24/2020 Sex and Gender Information Value Date Recorded Sex Assigned at Female 06/10/2022 10:56 AM CDT Gender Identity Female 06/10/2022 10:56 AM CDT Sexual Orientation Straight 06/10/2022 10 :56 AM CDT Last Filed Vital Signs Vital Sign Reading Time Taken Comments Blood Pressure 118/68 08/04/2022 2:03 PM CDT Pulse 55 08/04/2022 2:03 PM CDT Temperature 36.1 ??C (97 ??F) 03/18/2022 3:35 PM NARCOTICS DETECTIVE Respiratory Rate - - Oxygen Saturation - - Inhaled Oxygen Concentration - - Weight 64.8 kg (142 lb 13.7 oz) 08/04/2022 2:03 PM CDT Height 165 cm (5' 4.96) 08/04/2022 2:03 PM CDT Body Mass Index 23.8 08/04/2022 2:03 PM CDT Plan of Treatment Health Maintenance Due Date Last Done Comments Diabetic Office Visit with F oot Exam 1945 Dilated Eye Exam 1945 Hepatitis C Screening 1945 Urine Albumin 1945 Hepatitis B Vaccines (1 of 3 - Risk 3-dose series) 2005 Depression Screening (Annual PHQ-2) 03/02/2022 Fall Risk Screen (Annual) 03/02/2022 Hemoglobin A1C 09/15/2022 03/18/2022 Influenza Vaccine (#1) 2022 2, 12/26/2020, 12/15/2019, Additional history exists Creatinine Level (Kidney Fun ction Test) 03/18/2023 03/18/2022, 12/08/2018, 08/12/2018, Additional history exists Potassium Level 03/18/2023 03/18/2022, 08/12/2018 Sodium Level 03/18/2023 03/18/2022, 08/12/2018 Office Visit for Blood Press ure Check / Re-check 08/05/2023 08/04/2022 DTaP,Tdap,and Td Vaccines (4 - Td or Tdap) 04/13/2028 04/13/2018, 01/09/2012, 08/10/2007, Additional history exists Colonoscopy Discontinued 08/04/2012, 08/2009, 08/22/2002 Colorectal Cancer Screening Discontinued Mammogram Discontinued 03/11/2016 (Perf ormed elsewhere), 02/16/2014 (Performed elsewhere), 01/17/2013 (Performed elsewhere), Additional history exists Pneumococcal vaccine (65+ years) Completed 12/10/2017, 03/09/2015, 04/08/2011, Additional history exists Zoster Vaccines Completed 03/30/2018, 11/30, 04/08/2011, Additional history exists COVID-19 Vaccine Completed 11/29/2022, 08/2022, 12/10/2021, Additional history exists CT Colonography Discontinued Cologuard Discontinued FIT Discontinued Medical Devices Implanted Type Area Double End Production Grinder Device Identifier Shelf Expiration Date Model / Serial / Lot Conversions - Default Historical Implant Device Implanted:2016 (Quantity not on file) Cardiac Stent Chest Description:Body Location - Chest. Device Status Text - Cardiac. Care Teams Through Freight Engineer Relationship Specialty Start Date End Date Elsewhere, Pcp PCP - General Internal Medicine 03/14/22
--- OUTSIDE RECORDS SUMMARY | 2023-03-09 12:56 | XMS_ITS | Encounter Summary ---
Author Name Unknown Organization [facility] Address [address] [place] [id number] Care Team Providers Care Sorting Cows Worker Name Role Phone Elsewhere, Pcp Primary Care Provider Unavailabl e Reason for Referral * Outpatient (Routine) - Closed Specialty Diagnoses / Procedures Referred By Contac t Referred To Contact Infectious Diseases Nguyen Beard M.B., Ch.B. [address] [place] [phone] [facility] Referral ID Status Reason Start Date Expiration Date Visits Re quested Visits Authorized [id number] Closed 03/18/2022 03/17/2025 1 1 RICT MANAGER IN TRAINING Reason for Visit * Outpatient (Routine) - Closed Specialty Diagnoses / Procedures Referred By Contac t Referred To Contact Infectious Diseases Diagnoses Lymphedema Post Mastectomy King Gamboa M.D. [address] [place] [phone] [facility] Referral ID Status Reason Start Date Expiration Date V isits Requested Visits Authorized [id number] Closed Specialty Services Required 02/03/2022 02/03/2023 1 1 Encounter Details Date Type Department Care Team (Latest Contact Info) Description 03/18/2022 3:00 PM DISTRICT MANAGER IN TRAINING Comprehensive Visit Section of Infectious Diseases in [place], [place] [address] [place] [phone] King Gamboa M.D. [address] [place] [phone] Nguyen Beard M.B., Ch.B. [address] [place] [phone] Lymphedema Post Mastectomy Social History Tobacco Use Types Packs/Day Years Used Date Smoking Tobacco: Former Cigarettes 1 Q uit: 1988 Smokeless Tobacco: Never Social Connection and Isolat ion Panel [NHANES] Answer Date Recorded In a typical week, how many times do you talk on the phone with family, friends, or neighbors? More than three times a week 07/24/2020 Frequency of Social Gatherin gs with Friends and Family Not on file 07/24/2020 How often do you attend chur or religion services? More than 4 times per year 07/24/2020 Do you belong to any clubs o r organizations such as advent groups, unions, fraternal or athletic groups, or school groups? Yes 07/24/2020 How often do you attend meet ings of the clubs or organizations you belong to? More than 4 times per year 07/24/2020 Are you , , di vorced, , never , or living with a partner? 07/24/2020 AUDIT-C Answer Date Recorded Q1: How often do you have a drink containing alc ohol? Never 07/24/2020 Average Number of Drinks Not on file 021 Frequency of Binge Drinking Not on file 07/01 Overall Financial Resource Strain (CARDIA) Answe r Date Recorded How hard is it for you to pa y for the very basics like food, housing, medical care, and heating? Not hard at all 07/24/2020 [facility] Occupat ional Health - Occupational Stress Questionnaire Answer Date Recorded Do you feel stress - tense, restless, nervous, or anxious, or unable to sleep at night because your mind is troubled all the time - these days? Not at all 07/24/2020 Exercise Vital Sign Answer Date Recorde d On average, how many days pe r week do you engage in moderate to strenuous exercise (like a brisk walk)? 4 days 07/24/2020 On average, how many minutes do you engage in exercise at this level? 50 min 07/24/2020 Hunger Vital Sign Answer Date Recorded Within the past 12 months, y ou worried that your food would run out before you got the money to buy more. Never true 07/25/19 21 Within the past 12 months, t he food you bought just didn't last and you didn't have money to get more. Never true 07/24/2020 PRAPARE - Transportation Answer Date Re corded In the past 12 months, has l ack of transportation kept you from medical appointments or from getting medications? No 07/01 In the past 12 months, has l ack of transportation kept you from meetings, work, or from getting things needed for daily living? No 07/24/2020 Housing Stability Vital Sign Answer [place] e Recorded In the last 12 months, was t here a time when you were not able to pay the mortgage or rent on time? No 07/24/2020 In the last 12 months, how many places have you lived? 1 07/24/2020 In the last 12 months, was t here a time when you did not have a steady place to sleep or slept in a [place] [facility] [place] (including now)? No 07/24/2020 Nutrition Answer Date Recorded Nutrition: EVOO Fat Source Yes 07/24 On average, how many serving s of fruits and vegetables do you eat per day (serving size is equal to 1 cup or approximately the size of a tennis ball)? 2-3 07/24/2020 Dental Answer Date Recorded Dental: Regular Dentist Yes 03/02/19 23 Employment Answer Date Recorded Employment status Retired 07/24/2020 Education Answer Date Recorded What is the highest level of school you have completed or the highest degree you have received? 12th grade 07/24/2020 Sex and Gender Information Value Date Recorded Sex Assigned at Female 06/10/2022 10:56 AM CDT Gender Identity Female 06/10/2022 10:56 AM CDT Sexual Orientation Straight 06/10/2022 10 :56 AM CDT documented as of this encounter Last Filed Vital Signs Vital Sign Reading Time Taken Comments Blood Pressure - - Pulse - - Temperature 36.1 ??C (97 ??F) 03/18/2022 3:35 PM DISTRICT MANAGER IN TRAINING Respiratory Rate - - Oxygen Saturation - - Inhaled Oxygen Concentration - - Weight - - Height - - Body Mass Index - - documented in this encounter Consult Notes * Nguyen Beard M.B., Ch.B. - 03/18/2022 3:00 PM CST SUBJECTIVE Referring Provider: King Gamboa M.D. REASON FOR CONSULT Lymphedema HISTORY OF PRESENT ILLNESS Mrs Quinn is a 76 year old woman referred for evaluation of lymphedema following mastectomy. Background of right sided breast cancer s/p mastectomy and chemotherapy 1997, complicated by recurrence s/p right axillary lymphadenectomy and radiation in 2000 with subsequent right upper extremity lymphedema. Initially had a compression sleeve, however there were some remote concerns that this was causing abrasions or skin breakdown which lead to it being stopped. She has not been receiving anylymphedema management for many years. Reports recurrent right upper extremity cellulitis on at least 4 occasions this year (April, July, November x2). Required urgent care visits x2 in November. Ultrasound for DVT was negative locally on 12/25/2021. The most recent episodes of cellulitis followed removal of skin tags by a local director case management in early November 2021, complicated by local skin infection surrounding an area at the base of the right neck. Treated with a 7 day course of clindamycin 300 mg tid without improvement. Subsequently improved with a 10 day course of doxycycline. Episodes are associated with fevers and chills. No blood cultures have been obtained during these episodes as far as she can recall. No known bloodstream infections, not previously required hospitalization. She has a history of mucosal candidiasis with antibiotic treatment, this has not been an issue recently. Medical history notable for type 2 diabetes mellitus with HbA1c 5.6% on 08/07/2021, CKD, CAD s/p PCI 2015, and hypertension. No tobacco use. REVIEW OF SYSTEMS Pertinent items are noted in HPI; all other review of systems was negative. The following portions of the patient's history were reviewed and updated as appropriate: allergies, current medications, family history, medical history, social history, surgical history, and problem list. OBJECTIVE There were no vitals filed for this visit. PHYSICAL EXAMINATION General: Alert, nondistressed, interactive and appropriate Heart: Dual heart sounds, regular rate/rhythm, no murmurs/rubs/gallops Lungs: Clear to auscultation, respirations even/unlabored Extremities: RUE edema, no concerning skin changes Skin: No rashes or lesions Lymph: No cervical, supraclavicular lymphadenopathy DIAGNOSTICS Reviewed and summarized in HPI ASSESSMENT / PLAN Recurrent right upper extremity cellulitis Chronic right upper extremity lymphedema Recurrent right sided breast cancer s/p mastectomy + chemotherapy 1997, s/p right axillary lymphadenectomy + radiation 2000 Type 2 diabetes mellitus, HbA1c 5.6% Mrs Quinn is a 76 year old woman with recurrent right upper extremity cellulitis, complicating chronic lymphedema following remote breast cancer treatment. We discussed the importance of lymphedema management to reduce the occurrence of cellulitis, she has already met with the lymphedema clinic earlier today. For treatment of acute cellulitis recommend cefadroxil 1 g bid for a 7-14 day course, doxycycline is also a good alternative. Clindamycin is not as effective an agent for the common streptococcal andstaphylococcal species that cause cellulitis, would recommend against using this as a first line agent for cellulitis. For now recommend short term penicillin VK prophylaxis given frequency of cellulitis episodes, we can plan a 3 month course until lymphedema is better controlled. If she has complications with antibiotic prophylaxis (yeast infections) we can stop and treat any acute episodes only. RECOMMENDATIONS Recommend penicillin VK 500 mg bid prophylaxis, tentatively for 3 months (script sent) Video ID followup in 3 months, if lymphedema better controlled can likely stop at that time For acute cellulitis episodes recommend cefadroxil 1 g bid or doxycycline 100 mg bid RICT MANAGER IN TRAINING documented in this encounter Plan of Treatment Scheduled Referrals Name Type Priority Associated Diagnoses Order Schedule Infectious Diseases office visit (clinic) Outpatient Referral Routine Expected: 06/16/2022 (Approximate), Expires: 06/17/2023 documented as of this encounter Visit Diagnoses Diagnosis Lymphedema Post Mastectomy documented in this encounter Care Teams Sorting Cows Worker Relationship Specialty Start Date End Date Elsewhere, Pcp PCP - General Internal Medicine 03/14/22 documented as of this encounter
--- OUTSIDE RECORDS SUMMARY | 2023-03-09 12:56 | XMS_ITS ---
Author Name Unknown Organization [facility] Address [address] [place] [address] Care Team Providers Care [employer]essionals Name Role Phone Unavailable Unavailable Unavailable Surgery Details Not on file Complications Check Surgery Details section. Procedure Estimated Blood Loss Check Surgery Details section. Procedure Findings Check Surgery Details section. Procedure Specimens Taken Check Surgery Details section.
--- OUTSIDE RECORDS SUMMARY | 2023-03-09 12:56 | XMS_ITS | Encounter Summary ---
Author Name Unknown Organization [facility] Address [address] [place] [id number] Care Team Providers Care Sock Drier Name Role Phone Elsewhere, Pcp Primary Care Provider Unavailabl e Reason for Referral * Outpatient (Routine) - Authorized Specialty Diagnoses / Procedures Referred By Contact Referred To Contact Physical Medicine and Rehabilitation King Gamboa M.D. [address] [place] [phone] [facility] Referral ID Status Reason Start Date Expiration Date V isits Requested Visits Authorized [id number] Authorized 03/19/2022 03/18/2025 1 1 COMMUNICATIONS REPAIRER Reason for Visit * Outpatient (Routine) - Closed Specialty Diagnoses / Procedures Referred By Contact Referred To Contact Physical Medicine and Rehabilitation King Gamboa M.D. [address] [place] [phone] [facility] Referral ID Status Reason Start Date Expiration Date Visits Re quested Visits Authorized [id number] Closed 02/03/2022 02/02/2025 1 1 Encounter Details Date Type Department Care Team (Latest Contact Info) Description 03/19/2022 10:30 AM TELECOMMUNICATIONS REPAIRER Comprehensive Visit Department of Physical Medicine and Rehabilitation in [place], [place] [address] [place] [phone] King Gamboa M.D. [address] [place] [phone] Lymphedema Post Mastectomy (Primary Dx) Social History Tobacco Use Types Packs/Day Years [...] 07/24/2020 How often do you attend chur ch or yarsani services? More than 4 times per year 07/24/2020 Do you belong to any clubs o r organizations such as protestant groups, unions, fraternal [...] and heating? Not hard at all 07/24/2020 [facility] Health - Occupational Stress [...] slept in a skilled nursing (including now)? No 07/24/2020 Nutrition Answer Date [...] AM CDT documented as of this encounter Progress Notes * King Gamboa M.D. - 03/19/2022 10:30 AM CST ASSESSMENT / PLAN I spent 25 minutes with the patient reviewing the following with them. #1 Right-sided breast cancer The patient is status post mastectomy in 1997 followed by axillary lymphadenectomy a couple years later for recurrence as well as radiation therapy. She is being seen elsewhere for monitoring and apparently has remained disease free. #2 Right upper extremity swelling The patient was seen by one of our lymphedema therapist. We had little further to offer her than her lymphedema therapist in [place] and we urged the patient to return to that therapist care. Theyneed to continue the use of compression wra seen by infectious disease yesterday. ps and massage techniques to minimize the edema and then establish a long-term sustainable compression system the patient can manage. The patient does plan to follow through with further sessions. I explained to the patient that if the right shoulder pain is a limiting factor in treating the right arm swelling, she should let me know because I would proceed with x-rays of the shoulder and consider an injection of that shoulder to minimize its impact on her care. #3 Shoulder pain I verified with the patient that the previous injection at [place] was for the left shoulder and not the right. I urged the patient to let me know if the right continues to limit her compression use on the arm and if so I will get an x-ray of the right shoulder and consider a subacromial injection on that side. #4 Recurrent cellulitis of the right arm The patient was seen by infectious disease yesterday. I reviewed their recommendations with the patient. The patient plans to initiate Pen-VK 500 mg b.i.d. for suppression. In addition, Infectious Disease made recommendations for an acute cellulitis episode if one were to occur. They also plan to follow up with the patient by video in three months to see how she is doing. They felt that if further lymphedema treatment could control the swelling better, perhaps they could consider suspending thepenicillin use. Follow-up: I will recheck the patient in one year or sooner if there are problems. PPE use information for possible contact monitoring: PPE used during visit: Provider was wearing a mask throughout entire session. Patient was wearing a mask throughout entire session. COMMUNICATIONS REPAIRER documented in this encounter Plan of Treatment Scheduled Referrals Name Type Priority Associated Diagnoses Order Schedule Physical Medicine and Rehabilitation office visit (clinic) Outpatient Referral Routine Expected: 03/19/2023 (Approximate), Expires: 06/18/2023 documented as of this encounter Visit Diagnoses Diagnosis Lymphedema Post Mastectomy- Primary documented in this encounter Care Teams Sock Drier Relationship Specialty Start Date End Date Elsewhere, Pcp PCP - General Internal Medicine 03/14/22 documented as of this encounter
--- OUTSIDE RECORDS SUMMARY | 2023-03-09 12:56 | XMS_ITS | Encounter Summary ---
Author Name Unknown Organization [facility] Address [address] [place] [address] Care Team Providers Care Location Director Name Role Phone Elsewhere, Pcp Primary Care Provider Unavailabl e Reason for Referral * Outpatient (Routine) - Closed Specialty Diagnoses / Procedures Referred By Contac t Referred To Contact Infectious Diseases Nguyen Beard M.B., Ch.B. [address] [place] [phone] [facility] Referral ID Status Reason Start Date Expiration Date Visits Re quested Visits Authorized [id number] Closed 06/16/2022 06/15/2025 1 1 Reason for Visit * Outpatient (Routine) - Closed Specialty Diagnoses / Procedures Referred By Contfredi t Referred To Contact Infectious Diseases Nguyen Beard M.B., Ch.B. [address] [place] [phone] [facility] Referral ID Status Reason Start Date Expiration Date Visits Re quested Visits Authorized [id number] Closed 03/18/2022 03/17/2025 1 1 Encounter Details Date Type Department Care Team ([facility] st Contact Info) Description 06/16/2022 9:00 AM CDT Telemedicine Section of Infectious Diseases in [place], [place] [address] [place] [phone] Nguyen Beard M.B., Ch.B. [address] [place] [phone] Cellulitis (Primary Dx) Social History Tobacco Use Types Packs/Day Years Used Date Smoking Tobacco: Former Cigarettes 1 Q uit: 1988 Smokeless Tobacco: Never Humiliation, Afraid, Rape, and Kick questionnair e [...] 06/10/2022 How often do you attend chur ch or islam services? More than 4 times per year 06/10/2022 Do you belong to any clubs o r organizations such as tenriism groups, unions, fraternal or athletic groups, or [...] and heating? Not hard at all 06/10/2022 [facility] Occupat ional Health - Occupational Stress [...] money to buy more. Never true 06/11/19 Within the past 12 months, t he [...] as of this encounter Progress Notes * Nguyen Beard M.B., Ch.B. - 06/16/2022 9:00 AM CDT SUBJECTIVE CHIEF COMPLAINT/REASON FOR VIDEO VISIT Follow-up: Recurrent right upper extremity cellulitis HISTORY OF PRESENT ILLNESS Mrs. Quinn is a 76-year-old woman seen for follow-up of recurrent right upper extremity cellulitis, related to prior breast cancer treatment. Please see my prior note for complete details of the history. In brief she was started on prophylaxis in mid March 2022 for recurrent right upper extremity cellulitis, related to chronic right upper extremity lymphedema following remote right-sided mastectomyand axillary lymphadenectomy. At that time she had also met with the lymphedema clinic and re-initiated lymphedema management. Today she endorses no episodes of breakthrough cellulitis on suppressive penicillin VK. She has tolerated it well without any adverse effects or intolerance noted. She reports excellent adherence to compression sleeve and lymphedema massage machine, she reports she has been discharged from physical therapy locally due to improvement. Overall her edema and local skin changes remain about the same as before, without any marked interval improvement. The following portions of the patient's history were reviewed and updated as appropriate: allergies, current medications, family history, medical history, social history, surgical history, and problem list. REVIEW OF SYSTEMS Pertinent items are noted in HPI; all other review of systems was negative. OBJECTIVE Video visit DIAGNOSTICS Reviewed and summarized in HPI ASSESSMENT / PLAN Recurrent right upper extremity cellulitis Chronic right upper extremity lymphedema Recurrent right sided breast cancer s/p mastectomy + chemotherapy 1997, s/p right axillary lymphadenectomy + radiation 2000 Type 2 diabetes mellitus, HbA1c 5.6% Mrs. Quinn no breakthrough episodes of right upper extremity cellulitis on suppressive penicillin VK. She has excellent adherence to lymphedema management, however has not noted a substantial improvement in lymphedema. As she is tolerating penicillin without issues I would advise continuing it over the summer for the next 6 months. We will plan for a video visit in 6 months and trial discontinuation at that time if she remains well. If she has recurrent episodes after discontinuation, lifelong penicillin VK suppression could be considered. RECOMMENDATIONS Continue penicillin VK 500 mg bid for a further 6 months (refills sent) Video ID followup in 6 months Encouraged ongoing adherence to lymphedema management Advised to contact us if antibiotic adverse effects or breakthrough cellulitis episodes documented in this encounter Plan of Treatment Scheduled Referrals Name Type Priority Associated Diagnoses Order Schedule Infectious Diseases office visit (clinic) Outpatient Referral Routine Expected: 12/16/2022 (Approximate), Expires: 09/16/2023 documented as of this encounter Visit Diagnoses Diagnosis Cellulitis- Primary documented in this encounter Care Teams Location Director Relationship Specialty Start Date End Date Elsewhere, Pcp PCP - General Internal Medicine 03/14/22 documented as of this encounter
--- OUTSIDE RECORDS SUMMARY | 2023-03-09 12:56 | XMS_ITS | Encounter Summary ---
Author Name Unknown Organization [facility] Address [address] [place] [address] Care Team Providers Care Tool And Die Engineer Name Role Phone Elsewhere, Pcp Primary Care Provider Unavailabl e Reason for Visit * Outpatient (Routine) - Closed Specialty Diagnoses / Procedures Referred By Contfredi t Referred To Contact Infectious Diseases Nguyen Beard M.B., Ch.B. [address] [place] [phone] [facility] Referral ID Status Reason Start Date Expiration Date Visits Re quested Visits Authorized [id number] Closed 06/16/2022 06/15/2025 1 1 Encounter Details Date Type Department Care Team ([facility] st Contact Info) Description 12/10/2022 11:30 AM CDT Telemedicine Section of Infectious Diseases in [place], [place] [address] [place] [phone] Nguyen Beard M.B., Ch.B. [address] [place] [phone] Cellulitis (Primary Dx) Social History Tobacco Use [...] How often do you attend chur or adventist services? More than 4 times per year 06/10/2022 Do you belong to any clubs o r organizations such as denominational groups, unions, fraternal or athletic groups, or [...] and heating? Not hard at all 06/10/2022 [facility] - Occupational [...] or slept in a jail (including now)? No 06/10/2022 Nutrition Answer Date [...] Notes * Nguyen Beard M.B., Ch.B. - 12/10/2022 11:30 AM CDT SUBJECTIVE VIDEO FOLLOWUP Recurrent cellulitis HISTORY OF PRESENT ILLNESS Ms. Quinn is a 76-year-old woman seen for follow-up of recurrent right upper extremity cellulitis, related to prior breast cancer treatment. Please see my prior note for complete details of the history. She has been on prophylactic penicillin VK since March 2022 for recurrent right upper extremity cellulitis, with underlying right upper extremity lymphedema. Since our last visit in May 2022 she has had 1 further breakthrough episode of cellulitis in August 2022, managed with a course of cefadroxil. Since then she has continued on oral penicillin VK without any adverse effects or intolerance. She continues to be adherent to lymphedema management, however has not had any substantial improvement in the ongoing edema issues. The following portions of the patient's history were reviewed and updated as appropriate: allergies, current medications, family history, medical history, social history, surgical history, and problem list. REVIEW OF SYSTEMS Reviewed OBJECTIVE DIAGNOSTICS Reviewed ASSESSMENT / PLAN Recurrent right upper extremity cellulitis Chronic right upper extremity lymphedema Recurrent right sided breast cancer s/p mastectomy + chemotherapy 1997, s/p right axillary lymphadenectomy + radiation 2000 Type 2 diabetes mellitus, HbA1c 5.6% Given the lack of improvement in lymphedema despite diligent lymphedema management strategies we discussed continuing penicillin VK chronically as it has resulted in a substantial reduction in the frequency of cellulitis episodes. I have prescribed a further 1 year refill, following which it can continue to be refilled by her primary care provider. I advised her to reach out to us if he develops adverse effects or intolerance, including C difficile infection. Additionally advised her to reach out to us if she has multiple breakthrough episodes, in which instance we should revisit the utility of ongoing prophylaxis. For now I will not organize ongoing follow-up for her in the ID clinic. She has our contact detailsif future needs arise. documented in this encounter Plan of Treatment Not on file documented as of this encounter Visit Diagnoses Diagnosis Cellulitis- Primary documented in this encounter Care Teams Tool And Die Engineer Relationship Specialty Start Date End Date Elsewhere, Pcp PCP - General Internal Medicine 03/14/22 documented as of this encounter
--- OUTSIDE RECORDS SUMMARY | 2023-03-09 12:56 | XMS_ITS | Encounter Summary ---
Author Name Unknown Organization [facility] Address [address] [place] [address] Care Team Providers Care Oil Boiler Name Role Phone Elsewhere, Pcp Primary Care Provider Unavailabl e Reason for Visit * Appointment Request (Routine) - Closed Specialty Diagnoses / Procedures Referred By Franky el Referred To Contact Nephrology and Hypertension Referral ID Status Reason Start Date Expiration Date Visits Re quested Visits Authorized [id number] Closed 07/10/2022 07/10/2023 1 1 Encounter Details Date Type Department Care Team (Latest Contact Info) Description 08/04/2022 2:00 PM CDT External Outreach Division of Nephrology and Hypertension in [place], [place] [address] [place] [phone] King Garza Jr., D.O. [address] [place] [phone] Hypertension And Chronic Kidney Disease Stage 1 (Primary Dx); Diabetes Mellitus Type 2 Without Complication (HCC); Sjogren's (Sicca) Syndrome (HCC); Lymphedema Post Mastectomy; Cancer Breast Personal History; Proteinuria; Anemia Iron Deficiency Social History Tobacco Use Types Packs/Day [...] How often do you attend chur or latter-day services? More than 4 times per year 06/10/2022 Do you belong to any clubs o r organizations such as mormon groups, unions, fraternal [...] and heating? Not hard at all 06/10/2022 [facility] - Occupational [...] or slept in a detention (including now)? No 06/10/2022 Nutrition Answer Date [...] Pulse 55 08/04/2022 2:03 PM CDT Temperature - - Respiratory Rate - - Oxygen Saturation - - Inhaled Oxygen Concentration - - Weight 64.8 kg (142 lb 13.7 oz) 08/04/2022 2:03 PM CDT Height 165 cm (5' 4.96) 08/04/2022 2:03 PM CDT Body Mass Index 23.8 08/04/2022 2:03 PM CDT documented in this encounter Progress Notes * King Garza Jr., D.Dora. - 08/04/2022 2:00 PM CDT Referring Provider: ELSEWHERE, PCP SUBJECTIVE REASON FOR VISIT [facility] follow-up regards CKD stage 1, with microalbuminuria, hypertension, history of right upper extremity lymphedema HISTORY OF PRESENT ILLNESS Ms. Quinn is a 76 y.o. female who presents with history of diabetes mellitus type 2, hypertension, and microalbuminuria with CKD stage 1 whom I have helped take care for many years following a diagnosis of breast carcinoma 1997. She suffered recurrence, and now has lymphedema of her right upper extremity which has been quite problematic over the years. Her recurrent episodes of cellulitis have prompted our Infectious Disease team to recommend that she use daily prophylaxis with penicillin VK. She has been free of infection since this was initiated. She uses a device to pump fluid from her extremity, but notes that there is not been any tremendousbenefit decides keeping the arm stable. She is had no gross hematuria, no urinary foaming, no outlet symptoms. She has been free of chest pain, has history of premature coronary artery disease as well. No shortness of breath no PND no orthopnea. No B type symptoms. She is done well with her glycemic control, no episodes of hypoglycemia. She exercises daily on the treadmill, walking at least 2 miles. I congratulated her. We discussed her r anemia with a hemoglobin 11.2, with low ferritin and low% saturation. She is had no melena, no hematochezia no epistaxis she does have a diet reasonable in iron. History reviewed. No pertinent past medical history. Current Outpatient Medications: aspirin [address] tablet, Take 81 mg by mouth daily., Disp: , Rfl: atenoloL (TENORMIN) 25 mg tablet, Take 1 tablet by mouth daily., Disp: , Rfl: atenoloL-chlorthalidone (TENORETIC) 100-25 mg per tablet, Take 25 mg by mouth daily., Disp: , Rfl: gabapentin (NEURONTIN) 600 mg tablet, Take 600 mg by mouth 2 (two) times a day., Disp: , Rfl: gabapentin (NEURONTIN) 600 mg tablet, Take 2 tablets by mouth every evening., Disp: , Rfl: lansoprazole (PREVACID) [address] capsule, Take 30 mg by mouth daily., Disp: , Rfl: lansoprazole (PREVACID) [address] capsule, Take 1 capsule by mouth daily., Disp: , Rfl: losartan (COZAAR) 25 mg tablet, Take 25 mg by mouth 2 (two) times a day., Disp: , Rfl: metFORMIN (GLUCOPHAGE) 500 mg tablet, Take 500 mg by mouth 2 (two) times a day., Disp: , Rfl: multivitamin with minerals capsule, Take 1 tablet by mouth daily., Disp: , Rfl: nitroglycerin (NITROSTAT) 0.4 mg SL tablet, Place 0.4 mg under the tongue every 2 (two) hours as needed., Disp: , Rfl: penicillin V potassium (VEETIDS) 500 mg tablet, Take 1 tablet (500 mg total) by mouth 2 (two) timesa day., Disp: 180 tablet, Rfl: 1 rosuvastatin (CRESTOR) 40 mg tablet, Take 40 mg by mouth daily., Disp: , Rfl: rosuvastatin (CRESTOR) 40 mg tablet, Take 1 tablet by mouth daily., Disp: , Rfl: REVIEW OF SYSTEMS All other systems reviewed and are negative. OBJECTIVE BP 118/68 Pulse (!) 55 Ht 165 cm Wt 64.8 kg BMI 23.80 kg/m?? PHYSICAL EXAMINATION General: Awake alert oriented HEENT: DANNY, EOMI, Mucous membranes moist, no oral lesions Neck: No Masses, No Bruits Lungs: Clear to ascultation Heart: Regular Rate and Rhythm, No ectopy Murmurs or rubs Abdomen: Soft, Non-tender Extremities: No cyanosis, No clubbing: She is compressive sleeve on her right upper extremity Neuro: Cranial Nerves intact, Gait is normal, strength grossly normal Skin: no suspicious lesions identified Psychiatric: Normal affect DIAGNOSTICS Note normal serum creatinine level, hemoglobin 11.2 with low % sat and low ferritin microalbumin tocreatinine ratio 300 milligrams/gram ASSESSMENT / PLAN #1 Hypertension And Chronic Kidney Disease Stage 1 She is microalbuminuria, 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 Going forward: 1. Goal blood pressure less than 120/80-achieved 2. Goal glycosylated hemoglobin level less than 7.5%-achieved with a hemoglobin A1c of 5.9%. 3. Stay well hydrated-achieved, she had 3000 cc of urine in 24 hours 4. Avoid NSAIDs and Ba 2 inhibitors 5. Return to clinic in 1 year. #2 Diabetes Mellitus Type 2 Without Complication (HCC) Congratulated her on her excellent hemoglobin A1c with metformin as her only agent. #3 Sjogren's (Sicca) Syndrome (HCC) She is adapted well to this, drinks plenty of fluids to keep her mouth moist and dental health intact. #4 Lymphedema Post Mastectomy She continues to struggle with this in his somewhat depressed regarding this. We discussed this at some length, she continues on penicillin VK to prevent cellulitis of her l right upper extremity. #5 Cancer Breast Personal History No evidence of recurrence #6 Proteinuria She is microalbuminuria #7 Anemia Iron Deficiency We will prescribe Vitron C1 orally daily for 30 days I will send this to the come in [facility] [place], [facility]. Total time: 30 minutes Counseling Time: 20 minutes King Garza Jr., D.O. documented in this encounter Plan of Treatment Not on file documented as of this encounter Visit Diagnoses Diagnosis Hypertension And Chronic Kidney Disease Stage 1- Primary Diabetes Mellitus Type 2 Without Complication (HCC) Sjogren's (Sicca) Syndrome (HCC) Lymphedema Post Mastectomy Cancer Breast Personal History Proteinuria Anemia Iron Deficiency documented in this encounter Care Teams Oil Boiler Relationship Specialty Start Date End Date Elsewhere, Pcp PCP - General Internal Medicine 03/14/22 documented as of this encounter
--- OUTSIDE RECORDS SUMMARY | 2023-03-09 12:56 | XMS_ITS | Referral Summary ---
Author Name Unknown Organization [facility] Address [address] [place] [id number] Care Team Providers Care Receptionist Telephone Operator Name Role Phone Elsewhere, Pcp Primary Care Provider Unavailabl e Source Comments Patient records contain information from all sites at [facility]. For routine questions regarding patient records, call [phone] during business hours, M-F 8:00 AM - 5:00 PM Central Time. Record requests for emergency care only can be directed to [phone] at any time.[facility] Encounters Date Type Department Care Team Description 12/10/2022 11:30 AM CDT Telemedicine Section of Infectious Diseases in [place], [place] [address] [place] [phone] Nguyen Beard M.B., Ch.B. Cellulitis (Primary Dx) 12/08/2022 9:45 AM CDT Clinical Communication Virtual Review in [place], [place] 200 [place] [address] Pre-visit Intake from Last 3 Months Allergies Active Allergy Reactions Criticality Noted Date [...] Deficiency 08/04/2022 Atherosclerotic Heart Diseas e Of [place] Coronary Artery Without Angina Pectoris 02/03/2022 Diabetes Mellitus Type 2 Without Complication Lymphedema Post Mastectomy 02/03/2022 Cellulitis Arm Right 02/03/2022 Hysterectomy Abdominal Status Post 02/03/2022 Pain Shoulder Right 02/03/2022 Cancer Breast Personal History 04/06/2019 Sjogren's (Sicca) Syndrome 04/06/2019 Proteinuria 04/06/2019 Myocardial Infarction Old 08/23/2002 Hyperlipidemia 08/23/2002 Hypertension And Chronic Kidney Disease Stage 1 08/23/2002 Immunizations Name Administration Dates Next Due HZV [...] often do you attend chur ch or jain services? More than 4 times per year 06/10/2022 Do you belong to any clubs o r organizations such as faith groups, unions, fraternal [...] and heating? Not hard at all 06/10/2022 [facility] - Occupational Stress [...] No 06/10/2022 Housing Stability Vital Sign Answer Adllas e Recorded In the last 12 months, [...] 36.1 ??C (97 ??F) 03/18/2022 3:35 PM FIRE EXTINGUISHER TESTER Respiratory Rate - - Oxygen Saturation - - Inhaled Oxygen Concentration - - Weight 64.8 kg (142 lb 13.7 oz) 08/04/2022 2:03 PM CDT Height 165 cm (5' 4.96) 08/04/2022 2:03 PM CDT Body Mass Index 23.8 08/04/2022 2:03 PM CDT Plan of Treatment Not on file Medical Devices Implanted Type Area Fishing Rod Mechanic Device Identifier Shelf Expiration Date Model / Serial / Lot Conversions - Default Historical Implant Device Implanted:2016 (Quantity not on file) Cardiac Stent Chest Description:Body Location - Chest. Device Status Text - Cardiac. Care Teams Receptionist Telephone Operator Relationship Specialty Start Date End Date Elsewhere, Pcp PCP - General Internal Medicine 03/14/22
--- OUTSIDE RECORDS SUMMARY | 2023-03-09 12:56 | XMS_ITS | Encounter Summary ---
Author Name Unknown Organization [facility] Address [address] [place] [address] Care Team Providers Care Erection Shop Supervisor Name Role Phone Elsewhere, Pcp Primary Care Provider Unavailabl e Encounter Details Date Type Department Care Team ([facility] st Contact Info) Description 08/07/2022 Orders Only Division of Nephrology and Hypertension in [place], [place] [address] [place] [phone] King Garza Jr., D.O. [address] [place] [phone] Social History Tobacco Use Types Packs/Day Years [...] often do you attend chur ch or yazdanism services? More than 4 times per year 06/10/2022 Do you belong to any clubs o r organizations such as christian groups, unions, fraternal [...] or slept in a fci (including now)? No 06/10/2022 Nutrition Answer Date [...] AM CDT documented as of this encounter Plan of Treatment Not on file documented as of this encounter Visit Diagnoses Not on filedocumented in this encounter Care Teams Erection Shop Supervisor Relationship Specialty Start Date End Date Elsewhere, Pcp PCP - General Internal Medicine 03/14/22 documented as of this encounter
--- OUTSIDE RECORDS SUMMARY | 2023-03-09 12:56 | XMS_ITS | Clinical Summary ---
Author Name Unknown Organization [facility] Address [place], [place] [address] Care Team Providers Care Fruit Packer Face And Fill Name Role Phone Pcp, No Unavailable Unavailable Gumaro Powell MD Primary Care Provider [phone] Allergies Active Allergy Reactions Criticality Noted Date Comments Latex 08/21/2004 Atorvastatin Other - Describe In Comment Field 12/10/2015 Facial swelling Lisinopril Cough 12/07/2015 Preservative Angioedema 12/07/2015 Saline Preservative Sulfa (Sulfonamide Antibiotics) 08/21/2004 Medications Medication Sig Dispensed Refills Start Date End Date Status lansoprazole (PREVACID) 30 mg capsule Take 30 mg by mouth once daily. 0 Active gabapentin 600 mg Tb24 Take 1,200 mg by mouth at bedtime. 0 Active ASPIRIN (ASPIR-81 ORAL) Take 81 mg by mouth once daily. 0 Active cevimeline (EVOXAC) 30 mg capsule Take 30 mg by mouth 3 times daily. 0 Active nitroglycerin (NITROSTAT) 0.4 mg sublingual tabletIndications:C oronary artery disease, angina presence unspecified, unspecified vessel or lesion type, unspecified whether [place] or transplanted heart Place 1 tablet under the tongue every 5 minutes if needed for Chest Pain. 1 Bottle 2 01/16/2017 Active losartan (COZAAR) 25 mg tabletIndications:E ssential hypertension,Mccall ry artery disease of [place] artery of [place] heart with stable angina pectoris (HC) Take 2 tablets by mouth at bedtime. 180 tablet 3 12/11/2017 Active atenolol (TENORMIN) 25 mg tabletIndications:E ssential hypertension,M[place]all ry artery disease of [place] artery of [place] heart with stable angina pectoris (HC) Take 1 tablet by mouth once daily. 90 tablet 3 12/11/2017 Active Blood Pressure Monitor (BLOOD PRESSURE KIT)Indications:HTN (hypertension) monitor home blood pressure 2-3 times per week; Goal BP <130 / 80 mm Hg 1 Device 0 07/22/2018 Active metFORMIN (GLUCOPHAGE) 500 mg tablet Take 2 tablets by mouth once daily with evening meal. Do not take until August 15 0 08/12/2018 Active Blood Pressure Monitor (BLOOD PRESSURE KIT)Indications:HTN (hypertension) Take random blood pressures 2-3 times per week, goal to be consistently less than 130/80 1 Device 0 10/06/2018 Active rosuvastatin (CRESTOR) 40 mg tabletIndications:C oronary artery disease, angina presence unspecified, unspecified vessel or lesion type, unspecified whether [place] or transplanted heart TAKE 1 TABLET AT BEDTIME 90 tablet 2 01/18/2019 Active cholecalciferol (VITAMIN D) 1,000 unit tablet Take 1 tablet by mouth once daily. 0 10/11/2019 Active calcium carbonate-vitamin D3 (Caltrate 600 plus D) 600 mg (1,500 mg)-800 unit chew Chew 1 Tablet by mouth once daily. 0 08/31/2020 Active Active Problems Problem Noted Date Diagnosed Date MULLER (dyspnea on exertion) 08/12/2018 Abnormal stress echocardiography 08/12/2018 Overview: - stress echo 07/30/18:Post stress, normal left ventricular size, mildly decreased global systolic function with an estimated EF of 40 to 45%. Stage 2: Impost: Entire anterior septum, apical lateral segment, apical anterior segment, and apical inferior segment are abnormal. Diabetes mellitus type II, controlled 12/07/2015 Overview: Last A1C was 6.0% Takes metformin Sicca 12/07/2015 Overview: Has been seen by multiple rheumatologists for her dry mouth. Hyperlipidemia, unspecified 12/07/2015 Breast cancer 12/07/2015 Overview: She underwent mastectomy in 1997 without chemo, and in 2003 underwent radiation and chemo. Heart disease 12/07/2015 Overview: History of large VT in 1988, found to have LAD lesion. Has a family history of Father with VT, and bother with VT in his 20's. - 12/15: s/p NAY mLAD using wire escalation CTA technique - 07/2018: widely patent stents Unstable angina 12/07/2015 Abnormal stress test ASHD (arteriosclerotic heart disease) Status post insertion of harley g-eluting stent into left anterior descending (LAD) artery for coronary artery disease Abnormal stress echo Encounters Date Type Department Care Team Description 01/29/2023 Lab Requisition [facility] [phone] Zhen Galicia MD from Last 3 Months Family History Medical History Relation Name Comments Heart Disease Brother Heart Disease Father Relation Name Status Comments Brother Father Social History Tobacco Use Types Packs/Day Years Used Date Smoking Tobacco: Former Cigarettes 1 28 Smokeless Tobacco: Never Tobacco Cessation:Counseling Given: Yes Comments:smoked 28 yrs ago Alcohol Use Standard Drinks/Week Comments No 0 (1 standard drink = 0.6 oz pur e alcohol) Social Connections Answer Date Recorded Frequency of Communication with Friends and Fami ly Not on file 03/02/2021 Financial Resource Strain Answer Date R ecorded Difficulty of Paying Living Expenses Not on file 03/02/2021 Difficulty of Paying Living Expenses Not on file 03/02/2021 Sex and Gender Information Value Date Recorded Sex Assigned at Not on file Gender Identity Not on file Sexual Orientation Not on file Obstetrics History Last Filed Vital Signs Vital Sign Reading Time Taken Comments Blood Pressure 130/64 10/09/2021 1:45 PM CDT Pulse 56 10/09/2021 1:45 PM CDT Temperature 35.9 ??C (96.6 ??F) 08/12/2018 10:45 AM C DT Respiratory Rate 19 08/12/2018 10:45 AM CDT Oxygen Saturation 96% 10/09/2021 1:45 PM CDT Inhaled Oxygen Concentration - - Weight 64.4 kg (142 lb) 10/09/2021 1:45 PM CDT Height 165.1 cm (5' 5) 10/09/2021 1:45 PM CDT Body Mass Index 23.63 10/09/2021 1:45 PM CDT Plan of Treatment Health Maintenance Due Date Last Done Comments Pneumococcal series for age 65+ (1 of 2 - PCV) 09/29/1951 Tdap 1956 Depression screening for age 12+ 1957 Hepatitis C screening for ag e 18-79 09/29/1963 Tetanus booster 1965 Zoster (shingles) series for age 50+ (1 of 2) 09/29/1995 DEXA/DXA scan for age 65+ 2010 Medicare Wellness for age 65+ 2010 BMI (ht and wt on same day) for age 18+ 10/09/2022 10/09/2021, 08/31/2020, 10/11/2019, Additional history exists COVID-19 vaccine series (24 season) 2022 06/15/2021, 11/30/2020, 05/11/2020, Additional history exists Influenza for age 65+ 10/31/2022 Procedures Procedure Name Priority Date/Time Associated Diagnosis Comments LAB TRACKING EVENT Routine 01/29/2023 11 :50 AM FLIGHT SERVICE SPECIALIST PATH TISSUE EXAM Routine 01/29/2023 11:5 0 AM FLIGHT SERVICE SPECIALIST from Last 3 Months Results * LAB TRACKING EVENT (01/29/2023 11:50 AM FLIGHT SERVICE SPECIALIST) Other (Other) Client Collect / Unknown 01/29/2023 11:50 AM FLIGHT SERVICE SPECIALIST 01/29/2023 6:11 PM FLIGHT SERVICE SPECIALIST Zhen Galicia MD LAB BILL ONLY [facility] [address] [place] [address], * PATH TISSUE EXAM (01/29/2023 11:50 AM FLIGHT SERVICE SPECIALIST) Case Report Pathology Report ?Case: [id number] ? Authorizing Provider: ??Zhen Galicia MD ?? Collected: ? 01/29/2023 1150 ? Ordering Location: ? [facility] ?Received: ?01/29/2023 1825 ? Pathologist: ? Danette Wilson MD ? Specimen: ?Right neck ? 02/02/2023 9:27 AM [facility] Final Diagnosis A) SKIN, RIGHT NECK, BIOPSY: Atypical verrucous and endophytic squamous proliferation, incompletely excised, see comment 02/02/2023 9:27 AM [facility] Comment The differential diagnosis includes verruca with reactive atypia and well-differenti ated squamous cell carcinoma. As the lesion is transected at the margins, complete conservative excision is recommended for proper pathologic evaluation and possible treatment. 02/02/2023 9:27 AM [facility] Clinical Information Rule out irritated SK versus SCC 02/02/2023 9:27 AM [facility] Gross Description A) Received in formalin, labeled with the patient's name and right neck, is a 0.7 x 0.6 x 0.1 cm skin biopsy. There is a 0.6 x 0.6 cm raised, crusted holliday lesion. The specimen is inked blue, trisected and entirely submitted in one cassette. EKW 01/29/2023 02/02/2023 9:27 AM [facility] Microscopic Description The final diagnosis is based on microscopic examination of appropriate sections of all specimens. 02/02/2023 9:27 AM FLIGHT SERVICE SPECIALIST [facility] Additional Information [facility]ed at [facility] - [address] [place] [address] [address], [place] [address] 02/02/2023 9:27 AM FLIGHT SERVICE SPECIALIST [facility] Other (Right neck) 01/29/2023 11:50 AM FLIGHT SERVICE SPECIALIST 01/29/2023 6:25 PM FLIGHT SERVICE SPECIALIST Zhen Galicia MD PATHOLOGY/CYTOLOG Y [facility] [address] [place] [address], from Last 3 Months Advance Directives Latest Code Status on File Code Status Date Activated Date Inactivated Comments Full Code 08/12/2018 8:28 AM 08/12/2018 1:21 PM Code Status History Code Status Date Activated Date Inactivated Comments Full Code 12/09/2015 8:36 AM 12/11/2015 3:29 PM Full Code 12/07/2015 9:43 PM 12/09/2015 8:36 AM Question Answer Comments Code Status Discussion: Discussed Care Teams Fruit Packer Face And Fill Relationship Specialty Start Date End Date Gumaro Powell MD [address] [place] [address] PCP - General Family Practice 12/28/15 Pcp, No . 12/07/15
--- OUTSIDE RECORDS SUMMARY | 2023-03-09 12:56 | XMS_ITS | Encounter Summary ---
Author Name Unknown Organization [facility] Address [address] [place] [address] Care Team Providers Care Insemination Worker Name Role Phone Elsewhere, Pcp Primary Care Provider Unavailabl e Reason for Visit * Reason Onset Date Comments Pre-visit Intake 12/08/2022 Encounter Details Date Type Department Care Team (Latest Contact Info) Description 12/08/2022 9:45 AM CDT Clinical Communication Virtual Review in [place], [place] [address] [place] [address] Pre-visit Intake Social History Tobacco Use Types Packs/Day Years [...] often do you attend chur ch or scientology services? More than 4 times per year 06/10/2022 Do you belong to any clubs o r organizations such as mosque groups, unions, fraternal [...] and heating? Not hard at all 06/10/2022 [facility] - Occupational [...] on filedocumented in this encounter Care Teams Insemination Worker Relationship Specialty Start Date End Date Elsewhere, Pcp PCP - General Internal Medicine 03/14/22 documented as of this encounter
--- OUTSIDE RECORDS SUMMARY | 2023-03-09 12:57 | XMS_ITS | Clinical Summary ---
Author Name Unknown Organization [facility] Address [address] [place] [address] Care Team Providers Care Elevator Runner Name Role Phone Jr Landeros MD Primary Care Provider + Jr Landeros MD Unavailable [phone] Allergies Active Allergy Reactions Criticality Noted Date Comments Atorvastatin Other (See Comments) 12/10/2015 Facial swelling Latex Hives,Itching 11/13/2005 Bandaids and other contact Lisinopril Cough 12/07/2015 Sulfa Antibiotics Hives 11/13/2005 Medications Medication Sig Dispensed Refills Start Date End Date Status ASPIRIN 81 MG OR TABSIndications:Unspe cified cardiovascular disease,Mixed hyperlipidemia 1 TABLET DAILY 0 Active MUCINEX MAXIMUM STRENGTH 1200 MG OR [id number]:[facility] hitis acute 1 TABLET EVERY 12 HOURS NEEDED 28 0 08/10/2007 Active ACCU-CHEK MULTICLIX LANCETS MISCIndications:Type 2 diabetes, HbA1c goal < 7% (H) TEST 1-2 TIMES DAILY 200 Each 0 08/16/2009 Active Blood Glucose Calibration (ACCU-CHEK STEPHEN) SOLNIndications:Type 2 diabetes, HbA1c goal < 7% (H) 1 Bottle by In Vitro route daily as needed. 1 Bottle 0 03/01/2012 Active Blood Glucose Monitoring Suppl (ACCU-CHEK STEPHEN PLUS) W/DEVICE KITIndications:Type 2 diabetes, HbA1c goal < 7% (H) Use to test blood sugars once daily as directed. 1 kit 0 03/03/2012 Active Glucose Blood (ACCU-CHEK STEPHEN) STRPIndications:Type 2 diabetes, HbA1c goal < 7% (H) 1 strip by In Vitro route daily as needed. 100 strip 3 03/05/2012 Active LANsoprazole (PREVACID) 15 MG capsuleIndications:Ga stritis Take 2 capsules by mouth daily. 180 capsule 1 07/16/2012 Active losartan (COZAAR) 25 MG tabletIndications:Typ e 2 diabetes mellitus with proteinuria or microalbuminuria,Unsp ecified cardiovascular disease Take 1 tablet (25 mg) by mouth daily 90 tablet 0 12/02/2012 Active atenolol (TENORMIN) 25 MG tabletIndications:Uns pecified cardiovascular disease Take 1 tablet (25 mg) by mouth 2 times daily 180 tablet 0 12/14/2012 Active metFORMIN (GLUCOPHAGE-XR) 500 MG 24 hr tabletIndications:Typ e 2 diabetes, HbA1c goal < 7% (H) Take 2 tablets by mouth. Two DAILY WITH MEAL 180 tablet 0 01/10/2013 Active pravastatin (PRAVACHOL) 40 MG tabletIndications:Hyp erlipidemia LDL goal <100 Take 1 tablet (40 mg) by mouth daily 90 tablet 0 01/25/2013 Active alendronate (FOSAMAX) 70 MG tablet Take 70 mg by mouth 0 10/11/2019 Active cevimeline (EVOXAC) 30 MG capsule 0 04/10/2020 Active cholecalciferol 25 MCG (1000 UT) TABS Take 1 tablet by mouth daily 0 10/11/2019 Active gabapentin (NEURONTIN) 600 MG tabletIndications:Monica n of right upper arm 600 mg by mouth twice per day. 180 tablet 3 06/03/2021 Active Active Problems Problem Noted Date Diagnosed Date Status post insertion of harley g-eluting stent into left anterior descending (LAD) artery for coronary artery disease 05/24/2021 Sjogren's syndrome (H24) 04/06/2019 Advanced directives, counseling/discussion 10/22 Overview: Advance Directive Problem List Overview: Name Relationship [...] <100 04/11/2009 Hereditary and idiopathic peripheral neuropathy 04/15/2006 Overview: Chemotherapy related ; breast cancer 1997 and 2001- more so after second round Problem list name updated by automated process. 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 Hypertensive kidney disease, stage 1 08/23/2002 Personal history of malignant neoplasm of breast Overview: Mastectomy and chemotherapy; Recurrence 2001; Chemo and radiation; Tamoxifen, now Arimedex; followed at [facility] Cardiovascular disease Overview: PTCA- age 42 Problem list name updated by automated process. Provider to review Osteoporosis Overview: Fosamax Problem list name updated by automated process. Provider to review Resolved Problems Problem Noted Date Diagnosed Date Resolved Date Type 2 diabetes, HbA1C goal < 8% 12/30/2009 12/31/2009 Mixed hyperlipidemia 010 Overview: Statin; Pravachol; Low HDL Immunizations Name Administration Dates Next Due Influenza (H1N1) 03/12/2009 Influenza (High Dose) 3 satnam nt vaccine 12/10/2017,12/23/2016,12/17/2015,2013,12/08/2013,12/20/2012 Influenza (IIV3) PF 11/10/2011, 1,12/14/2009,2007,12/31/2006,12/18/2005,11/30/2005 Influenza Vaccine 18-64 (Flublok) 12/24/2018 Influenza Vaccine 65+ (Fluzone HD) 12/26/2020, Pneumo Conj 13-V (2010&after) 03/09/2015 Pneumococcal 23 valent 12/10/2017,04/08/2011, TD,PF 7+ (Tenivac) 04/13/2018,05/31/2005, 006 TDAP (Adacel,Boostrix) 01/09/2012,08/10/2007 Zoster recombinant adjuvante d (SHINGRIX) 03/30/2018,12/10/2017 Zoster vaccine, live 04/08/2011,05/24/2008 Family History Medical History Relation Comments [place] Brother Heart Disease Brother from a hear t attack CAda Father Hypertension Father Cancer Maternal Grandfather unknown jaden ology Cancer Maternal Grandmother unknown jaden ology Respiratory Mother copd Cerebrovascular Disease Paternal Grandfather Relation Status Comments Brother (Age 27) Father (Age 58) Maternal Grandfather Maternal Grandmother Mother (Age 80) Paternal Grandfather Social History Tobacco Use Types Packs/Day Years Used Date Smoking Tobacco: Former Cigarettes Q uit: 05/14/1988 Smokeless Tobacco: Never Tobacco Cessation:Counseling Given: No Alcohol Use Standard Drinks/Week Comments No 0 (1 standard drink = 0.6 oz pur e alcohol) Adolescent Education Answer Date Record ed Getting School Help Needed Not on file 12/07 Sex and Gender Information Value Date Recorded Sex Assigned at Female 05/22/2021 3:03 PM CDT Gender Identity Female 05/22/2021 3:03 PM CDT Sexual Orientation Straight 05/22/2021 3: 03 PM CDT Last Filed Vital Signs Vital [...] Date Last Done Comments CT COLONOGRAPHY 1945 FIT 1945 FLEX SIG 1945 sDNA (Cologuard) 1945 HEPATITIS C SCREENING 09/29/1963 LUNG CANCER SCREENING 09/29/1995 RSV VACCINE ( & 60+) (1 - 1-dose 60+ series) 2005 MEDICARE ANNUAL WELLNESS VISIT 10/23/2011 10/22/2010, 06/05/2009, 05/24/2008, Additional history exists DIABETIC FOOT EXAM 07/13/2012 07/14/2011 COLONOSCOPY 08/22/2012 08/22/2002 COLORECTAL CANCER SCREENING 08/22/2012 A1C 10/10/2012 04/12/2012, 12/02, 05/05/2011, Additional history exists MAMMO SCREENING 12/14/2012 12/15/2011, 07/2010, 07/05/2008, Additional history exists FALL RISK ASSESSMENT 12/30/2012 12/31/2011 BMP 04/12/2013 04/12/2012, 12/02, 05/05/2011, Additional history exists LIPID 04/12/2013 04/12/2012, 12/02, 05/05/2011, Additional history exists MICROALBUMIN 04/12/2013 04/12/2012, 12/02, 05/05/2011, Additional history exists EYE EXAM 10/18/2013 10/18/2012, 08/19/2010 ADVANCE CARE PLANNING 10/23/2015 10/22/2010 ANNUAL REVIEW OF HM ORDERS 05/24/2022 05/24/2021 COVID-19 Vaccine ( season) 2022 11/30/2020, 05/11/2020, 04/13/2020 INFLUENZA VACCINE (#1) 2022 , 12/15/2019, 12/24/2018, Additional history exists PHQ-2 (once per calendar year) 2023 DEXA 07/06/2023 07/05/2008, 02/04/2006 DTAP/TDAP/TD IMMUNIZATION (4 - Td or Tdap) 04/13/2028 04/13/2018, 01/09/2012, 08/10/2007, Additional history exists URINALYSIS Completed 12/31/2011 Pneumococcal Vaccine: 65+ Years Completed 12/10/2017, 03/09/2015, 04/08/2011, Additional history exists ZOSTER IMMUNIZATION Completed 03/30/2018, 12/10/2017, 04/08/2011, Additional history exists HPV IMMUNIZATION Aged Out No longer e ligible based on patient's age to complete this topic IPV IMMUNIZATION Aged Out No longer e ligible based on patient's age to complete this topic MENINGITIS IMMUNIZATION Aged Out No l onger eligible based on patient's age to complete this topic RSV MONOCLONAL ANTIBODY Aged Out No l onger eligible based on patient's age to complete this topic Care Teams Elevator Runner Relationship Specialty Start Date End Date Jr Landeros MD [address] [place] [address] PCP - General Internal Medicine 05/24/21 Jr Landeros MD [address] [place] [address] Assigned PCP 05/26/21
--- OUTSIDE RECORDS SUMMARY | 2023-03-09 12:57 | XMS_ITS | Referral Summary ---
Author Name Unknown Organization [facility] Address [address] [place] [address] Care Team Providers Care Oncology Rn Name Role Phone Jr Landeros MD Primary Care Provider + Jr Landeros MD Unavailable [phone] Allergies Active Allergy Reactions Criticality Noted Date Comments Atorvastatin Other (See Comments) 12/10/2015 Facial swelling Latex Hives,Itching 11/13/2005 Bandaids and other contact Lisinopril Cough 12/07/2015 Sulfa Antibiotics Hives 11/13/2005 Medications Medication Sig Dispensed Refills Start Date End Date Status ASPIRIN 81 MG OR TABSIndications:Unspe cified cardiovascular disease,Mixed hyperlipidemia 1 TABLET DAILY 0 Active MUCINEX MAXIMUM STRENGTH 1200 MG OR [id number]:[facility] hitis acute 1 TABLET EVERY 12 HOURS [...] and radiation; Tamoxifen, now Arimedex; followed at [facility] Cardiovascular disease Overview: PTCA- age 42 Problem [...] d (SHINGRIX) 03/30/2018,12/10/2017 Zoster vaccine, live 04/08/2011,05/24/2008 Social History Tobacco Use Types Packs/Day Years [...] 05/24/2021 7:59 AM CDT Plan of Treatment Not on file Care Teams Oncology Rn Relationship Specialty Start Date End Date Jr Landeros MD [address] [place] [address] PCP - General Internal Medicine 05/24/21 Jr Landeros MD [address] [place] [address] Assigned PCP 05/26/21
--- OUTSIDE RECORDS SUMMARY | 2023-03-09 12:57 | XMS_ITS | Encounter Summary ---
Author Name Unknown Organization [facility] Address [address] [place] [address] Care Team Providers Care Shared Services And Outsourcing Manager Name Role Phone Elsewhere, Pcp Primary Care Provider Unavailabl e Reason for Visit * Reason Comments Pre-visit Intake Encounter Details Date Type Department Care Team (Latest Contact Info) Description 03/14/2022 9:45 AM ELECTRICAL FOREMAN Clinical Communication Virtual Review in [place], [place] [address] [place], [place] [id number] Pre-visit Intake Social History Tobacco Use Types Packs/Day Years Used Date Smoking Tobacco: Former Cigarettes 1 Q uit: 1988 Smokeless Tobacco: Never Tobacco Cessation:Counseling Given: Not Answered Social Connection and Isolat ion Panel [NHANES] Answer Date Recorded In a typical week, how many times do you talk on the phone with family, friends, or neighbors? More than three times a week 07/24/2020 Frequency of Social Gatherin gs with Friends and Family Not on file 07/24/2020 How often do you attend chur ch or yazidism services? More than 4 times per year 07/24/2020 Do you belong to any clubs o r organizations such as baptist groups, unions, fraternal or athletic groups, or [...] and heating? Not hard at all 07/24/2020 [facility] - Occupational Stress [...] or slept in a prison (including now)? No 07/24/2020 Nutrition Answer Date [...] on filedocumented in this encounter Care Teams Shared Services And Outsourcing Manager Relationship Specialty Start Date End Date Elsewhere, Pcp PCP - General Internal Medicine 03/14/22 documented as of this encounter
--- OUTSIDE RECORDS SUMMARY | 2023-03-09 12:57 | XMS_ITS | Encounter Summary ---
Author Name Unknown Organization [facility] Address [address] [place] [address]. [place] [address] Care Team Providers Care Cnc Machine Operator Name Role Phone Tiffany Leonard MD Primary Care Provider [phone] Jr Landeros MD Primary Care Provider + Jr Landeros MD Unavailable [phone] Reason for Visit * Reason Onset Date Comments Refill Request 08/26/2010 Encounter Details Date Type Department Care Team (Late st Contact Info) Description 08/26/2010 MyC Refill [facility] [address] [place] [address] [place] [address] [place] [address] Refill Request Social History Tobacco Use Types Packs/Day Years Used Date Smoking Tobacco: Former Cigarettes Q uit: 05/14/1988 Alcohol Use Standard Drinks/Week Comments No 0 (1 standard drink = 0.6 oz pur e alcohol) Sex and Gender Information Value Date Recorded Sex Assigned at Female 05/22/2021 3:03 PM CDT Gender Identity Female 05/22/2021 3:03 PM CDT Sexual Orientation Straight 05/22/2021 3: 03 PM CDT documented as of this encounter Plan of Treatment Not on file documented as of this encounter Visit Diagnoses Not on filedocumented in this encounter Care Teams Cnc Machine Operator Relationship Specialty Start Date End Date Tiffany Leonard MD PCP - General 04/16/01 05/23/21 Jr Landeros MD [address] [place] [address] PCP - General Internal Medicine 05/24/21 Jr Landeros MD [address] [place] [address] Assigned PCP 05/26/21 documented as of this encounter
--- OUTSIDE RECORDS SUMMARY | 2023-03-09 12:57 | XMS_ITS | Encounter Summary ---
Author Name Unknown Organization [facility] Address [address] [place] [address] Care Team Providers Care Internal Grinder Tender Name Role Phone Tiffany Leonard MD Primary Care Provider + [phone] Jr Landeros MD Primary Care Provider + Jr Landeros MD Unavailable [phone] Encounter Details Date Type Department Care Team (Late st Contact Info) Description 10/17/2010 [facility] [address] [address] [place] Social History Tobacco Use Types Packs/Day Years [...] on filedocumented in this encounter Care Teams Internal Grinder Tender Relationship Specialty Start Date End Date Tiffany Leonard MD PCP - General 04/16/01 05/23/21 Jr Landeros MD [address] [address] PCP - General Internal Medicine 05/24/21 Jr Landeros MD [address] [address] Assigned PCP 05/26/21 documented as of this encounter
--- OUTSIDE RECORDS SUMMARY | 2023-03-09 12:57 | XMS_ITS | Encounter Summary ---
Author Name Unknown Organization [facility] Address [address] [place] [address] Care Team Providers Care Wheat Farmer Name Role Phone Tiffany Leonard MD Primary Care Provider + [phone] Jr Landeros MD Primary Care Provider + Jr Landeros MD Unavailable [phone] Encounter Details Date Type Department Care Team (Late st Contact Info) Description 04/08/2012 [facility] Social History Tobacco Use Types Packs/Day Years Used Date Smoking Tobacco: Former Cigarettes Q uit: 05/14/1988 Smokeless Tobacco: Never Alcohol Use Standard [...] on filedocumented in this encounter Care Teams Wheat Farmer Relationship Specialty Start Date End Date Tiffany Leonard MD PCP - General 04/16/01 05/23/21 Jr Landeros MD [address] [place] [address] PCP - General Internal Medicine 05/24/21 Jr Landeros MD [address] [place] [id number] Assigned PCP 05/26/21 documented as of this encounter
--- OUTSIDE RECORDS SUMMARY | 2023-03-09 12:57 | XMS_ITS | Encounter Summary ---
Author Name Unknown Organization [facility] Address [address] [place] [address] Care Team Providers Care Bilingual Account Manager Name Role Phone Elsewhere, Pcp Primary Care Provider Unavailabl e Encounter Details Date Type Department Care Team (Late st Contact Info) Description 07/08/2017 [facility] AND [address] [address] Gumaro Powell M.D. [address] [place] [phone] Social History Tobacco Use Types Packs/Day Years Used Date Smoking Tobacco: Unknown Sex and Gender Information Value Date Recorded Sex Assigned at Female 06/10/2022 10:56 AM CDT Gender Identity Female 06/10/2022 10:56 AM CDT Sexual Orientation Straight 06/10/2022 10 :56 AM CDT documented as of this encounter Plan of Treatment Not on file documented as of this encounter Visit Diagnoses Not on filedocumented in this encounter Care Teams Bilingual Account Manager Relationship Specialty Start Date End Date Elsewhere, Pcp PCP - General Internal Medicine 03/14/22 documented as of this encounter
--- OUTSIDE RECORDS SUMMARY | 2023-03-09 12:57 | XMS_ITS | Encounter Summary ---
Author Name Unknown Organization [facility] Address [address] [place] [address] Care Team Providers Care Window Tinter Name Role Phone Tiffany Leonard MD Primary Care Provider + [phone] Jr Landeros MD Primary Care Provider + Jr Landeros MD Unavailable [phone] Encounter Details Date Type Department Care Team (Late st Contact Info) Description 04/25/2011 [facility] Social History Tobacco Use Types Packs/Day Years [...] on filedocumented in this encounter Care Teams Window Tinter Relationship Specialty Start Date End Date Tiffany Leonard MD PCP - General 04/16/01 05/23/21 Jr Landeros MD [address], [place] [address] PCP - General Internal Medicine 05/24/21 Jr Landeros MD [address] [place] [address] Assigned PCP 05/26/21 documented as of this encounter
--- OUTSIDE RECORDS SUMMARY | 2023-03-09 12:57 | XMS_ITS | Encounter Summary ---
Author Name Unknown Organization [facility] Address [address] [place] [address] Care Team Providers Care Gel Coat Sprayer Name Role Phone Tiffany Leonard MD Primary Care Provider Jr Landeros MD Primary Care Provider + Jr Landeros MD Unavailable Encounter Details Date Type Department Care Team (Late st Contact Info) Description 02/15/[address] [address] [place] Social History Tobacco Use Types Packs/Day Years [...] on filedocumented in this encounter Care Teams Gel Coat Sprayer Relationship Specialty Start Date End Date Tiffany Leonard MD PCP - General 04/16/01 05/23/21 Jr Landeros MD [address] [place] [address] PCP - General Internal Medicine 05/24/21 Jr aLnderos MD [address] [place] [address] Assigned PCP 05/26/21 documented as of this encounter
--- OUTSIDE RECORDS SUMMARY | 2023-03-09 12:57 | XMS_ITS | Encounter Summary ---
Author Name Unknown Organization [facility] Address [address] [place] [address]. [place] [address] Care Team Providers Care Keno Dealer Name Role Phone Tiffany Leonard MD Primary Care Provider [phone] Jr Landeros MD Primary Care Provider + Jr Landeros MD Unavailable [phone] Reason for Visit * Reason Onset Date Comments Results 03/14/2011 mri Encounter Details Date Type Department Care Team (Late st Contact Info) Description 03/14/2011 MyC Medical Advice [facility] [address] [place] [address] [place] [address] [place] [address] Results (mri) Social History Tobacco Use Types Packs/Day Years [...] documented as of this encounter Miscellaneous Notes * Telephone Encounter - Rakel Varghese - 03/14/2011 11:25 AM CST See Crowdp[employer] message below. Advised pt to pick up attendant and take to [facility]. Please call when we have received. Message to xray as reminder. Rakel Varghese RN ICAL SUPPORT TECH documented in this encounter Plan of Treatment Not on file documented as of this encounter Visit Diagnoses Not on filedocumented in this encounter Care Teams Keno Dealer Relationship Specialty Start Date End Date Tiffany Leonard MD PCP - General 04/16/01 05/23/21 Jr Landeros MD [address] [place] [address] PCP - General Internal Medicine 05/24/21 Jr Landeros MD [address] [place] [address] Assigned PCP 05/26/21 documented as of this encounter
--- OUTSIDE RECORDS SUMMARY | 2023-03-09 12:57 | XMS_ITS | Encounter Summary ---
Author Name Unknown Organization [facility] Address [address] [place] [address] Care Team Providers Care Stem Sizer Name Role Phone Elsewhere, Pcp Primary Care Provider Unavailabl e Reason for Visit * Physical Therapy (Routine) - Closed Specialty Diagnoses / Procedures Referred By Franky t Referred To Contact Diagnoses Lymphedema Post Mastectomy Edema Procedures PT or OT eval and treat (first available) King Gamboa M.D. [address] [place] [phone] [facility] Referral ID Status Reason Start Date Expiration Date Visits Re quested Visits Authorized [id number] Closed 02/03/2022 02/03/2023 99 99 Encounter Details Date Type Department Care Team (Latest Contact Info) Description 03/18/2022 1:00 PM DATA QUALITY CONSULTANT Comprehensive Visit Department of Physical Medicine and Rehabilitation in [place], [place] [address] [place] [phone] King Gamboa M.D. [address] [place] [phone] Yazmin Zaragoza M.S., O.T., [facility] [address] [place] [phone] Lymphedema Post Mastectomy; Edema Social History Tobacco Use Types Packs/Day Years [...] often do you attend chur ch or gnosticism services? More than 4 times per year 07/24/2020 Do you belong to any clubs o r organizations such as latter day groups, unions, fraternal or athletic groups, or [...] and heating? Not hard at all 07/24/2020 [facility] - Occupational Stress [...] or slept in a snf (including now)? No 07/24/2020 Nutrition Answer Date [...] AM CDT documented as of this encounter Consult Notes * Yazmin Zaragoza, M.S., O.T., [facility] - 03/18/2022 1:00 PM CST Occupational Therapy Lymphedema Outpatient Evaluation and Treatment By co-signing this note, the provider certifies the therapy being provided to this patient is reasonable and necessary for the diagnosis or treatment of this patient. Patient's Name: Mayra Quinn Referring Provider: King Gamboa M.D. Rehab Diagnosis: 1. Lymphedema Post Mastectomy 2. Edema Reason for Referral: OT eval and treat - lymphedema right arm History of Present Illness: Mayra is a very pleasant 76 year old female with long history of lymphedema in right upper extremity and recurrent cellulitis in right upper arm. She was diagnosed withinvasive ductal carcinoma of right breast with ER/FL + in 1997. She underwent a right modified radical mastectomy on 10/24/1997 with reoccurence in January 2001 after finding a mass in her right axilla. She underwent surgery again where she had 27 lymph nodes removed with 8 being positive for malignancy. Has history of adjuvant chemotherapy and radiation. 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 Onset Date: 10/24/97 Payor: MEDICARE / Plan: MEDICARE A AND B / Product Type: Medicare / Total Visit Count: 1 SUBJECTIVE Mayra Quinn is a 76 y.o. female who presents to therapy for evaluation and treatment for right upper extremity lymphedema. Her symptoms consist of heaviness to limb, swelling from wrist to upper arm, poor fitting clothing and repeated infections. Activity and Prior Treatment Current Home Program: Currently being seen by lymphedema therapist in [place], [place] 2x/week for MLD and compression bandaging. She generally keeps bandaging on for 1-2 days and her assists with wrapping when it becomes loose. Has Caresia night time garment and wraps over the top of that attimes. Previous Treatment: Has been seen prior by multiple lymphedema therapist since 1997 including consult with Shahrzad Richey MD in [facility] that specialized in lymphedema care and treatment. Reports having sensitive skin and needs to be careful about what time of foam she uses on her arms. Has [employer] custom flat knit garments but has not worn for quite some time. Has donning aids, Caresia and what sounds like a Tribute wrap. Patient and spouse both know how to complete short stretch bandaging. Occupational Profile Prior Function/Occupational Profile Dominant Hand: Right Lives With: Spouse Receives Help From: Family ADL Assistance: Independent IADL/Homemaking Assistance: Independent Patient/Caregiver Goals: For her clothing to fit normally on right arm PERTINENT MEDICAL / SURGICAL HISTORY: Patient Active Problem List Diagnosis Myocardial Infarction Old Hyperlipidemia Hypertension And Chronic Kidney Disease Stage 1 Cancer Breast Personal History Sjogren's (Sicca) Syndrome (HCC) Proteinuria Atherosclerotic Heart Disease [place] Coronary Artery Without Angina Pectoris Diabetes Mellitus Type 2 Without Complication (HCC) Lymphedema Post Mastectomy Cellulitis Arm Right Hysterectomy Abdominal Status Post Pain Shoulder Right Past Surgical History: Procedure Laterality Date OTHER CONVERTED SHX (SEE COMMENT) N/A 07/06/2009 >Colonoscopy with biopsy. OTHER CONVERTED SHX (SEE COMMENT) N/A 08/22/2002 > Colonoscopy OTHER CONVERTED SHX (SEE COMMENT) N/A 09/05/2003 >Esophagogastroduodenoscopy with Biopsy OTHER CONVERTED SHX (SEE COMMENT) N/A 07/20/2006 >Esophagogastroduodenoscopy with Biopsy OTHER CONVERTED SHX (SEE COMMENT) N/A 08/17/2007 >Esophagogastroduodenoscopy. OBJECTIVE PHYSICAL EXAM Fall Risk Screening: Fall in the last 12 months: No Are you fearful of falling?: Yes Fall Risk Comments: Feels off balance secondary to neuropathy in her feet 10 CM Measurements: 03/18/22 1300 Lymphedema Assessment Lymphedema measurement used: 10 CM UE Side affected R %Affected vs Unaffected Lymphedema UE Affected per unaffected - unilateral only (%) 29.05 % LUE (10 CM) Is this the initial? Yes 10cm 18 20cm 16.4 30cm 19.5 40cm 24.6 50cm 27 60cm 30 Current L UE Volume 2058.26 ml Initial L UE Volume 2058.26 ml Change in volume from initial edema (ml) 0 ml Change from initial edema (%) 0 % RUE (10 CM) Is this the initial? Yes 10cm 18.7 20cm 18.5 30cm 24.6 40cm 28 50cm 31.4 60cm 30.2 Current R UE Volume 2656.18 ml Initial R UE Volume 2656.18 ml Change in volume from initial edema (ml) 0 ml Change from initial edema (%) 0 % Bio-impedance (Sozo): 40.5 Lymphedema/Edema Eval: Range of motion: Within functional limits for daily self cares but limited given heaviness of arm and rotator cuff/arthritis history Strength: Strength within functional limits given right rotator cuff and AC arthritic joint history Sensation: Intact upper extremities Edema and Skin Observations: Present in right upper extremity from wrist to axilla with right hand mainly spared. Skin soft with fullness and denser tissue noted on lateral and medial aspect of rightforearm, elbow and upper arm. Pocket of dense tissue on medial right biceps region (patient reportsit has been ultrasound numerous times). No redness, warmth, open areas or drainage noted to skin. Functional Mobility: No difficulties with ambulation and transfers TREATMENT Lymphedema Self Care/Home Management: Reviewed the following education with patient: Briefly educated and reviewed the purpose, pathophysiology/physiology and anatomy of the lymphatic system and addressed potential causes and contributing factors to lymphedema. Educated on purpose of bioimpedance measurement using Sozo machine to measure tissue resistance to electrical current to determine extracellular fluid volume and allows for monitoring of changes for prevention of progression. Education provided on results/graphs produced. Difference between Phase 1 - Reduction Phase (daily short stretch bandaging application and wear for 23 of 24 hours, manual lymphatic drainage, exercise) vs Phase 2 - Maintenance Phase (compression garment, exercises, pneumatic pump, night garments). Patient familiar with different phases and goldstandard for lymphedema management and knows that with her shoulder history and skin sensitivity that she has always needed to modify how long she wears compression and different layers utilized during bandaging. She is hoping to eventually be able to be fitted for another garment and to hear fromher Rolling Machine Operator regarding if she can continue to pursue obtaining a Flexitouch for her right upper extremity which would assist with breaking up denser areas in forearm and elbow making fluid more mobile and likely lowering her cellulitis reoccurrences. Reviewed patient's current skin care routine and hygiene for infection prevention given patient's history of cellulitis while also reviewing the signs and symptoms to cellulitis and steps to take if noticing cardinal signs (red, warm, pain, edema) and contacting nurse line or going to ED for further evaluation. She has meeting with Infectious Disease this afternoon to discuss options for cellulitis prevention. Assessment Mayra is a very pleasant 76 year old female with long history of lymphedema in her right arm following a modified radical mastectomy in September 1997 and subsequent lymph node removal after reoccurrence in January 2001. She has had several reoccurrence of cellulitis impacting her lymphedema in the right arm. Currently she is working with a local lymphedema therapist in [place], [place] twice a week for management. Given her history of cellulitis and lymphedema, her skin is well cared for and softer/more pliable than expected upon examination. The dense areas in her forearm, elbow and upper arm appear to the areas of greatest concern and holding the most stagnant lymph fluid especially givenher bioimpedance score of 40.5. No current changes made to her current plan of care and she will continue to work with her local therapist for reduction of arm and fitting into rodent exterminator garment/sleeve, as well as the [facility] Medical rep and her horticulture supervisor for future use of Flexitouch for her right arm to assist with decongestion and fibrosis management in her right arm. Rehab Potential: Ms. Quinn has good potential to achieve established occupational therapy therapy goals within the time frame outlined below, provided she actively participates in her occupationaltherapy therapy treatment plan and home program. Occupational Profile and History Review Expanded Complicating Factors: (Comorbid Conditions/Personal Factors) Comorbid Conditions: Arthritis, Cancer, Diabetes, Cardiopulmonary disease Personal Factors: Balance impairment Performance Deficits 1 - 3 performance deficits Evaluation Complexity Low Barriers to Discharge Functional Goals and Timeframes: Goal #1: Patient to have an effective lymphedema home management program for her right upper extremity. Goal #1 Date: 03/18/22 Goal #1 Status: Met Plan Ms. Quinn was educated regarding evaluative findings, diagnosis, prognosis, potential risks and benefits of rehabilitation interventions. A collaborative effort was used to establish goals and plan of care. She was informed of her right to make decisions regarding her care, including refusal of examination or treatment or selection of therapy services from another provider if desired. The treatment plan may be progressed or modified based upon her response to treatment. Treatment Plan: Start of Plan of Care: 03/18/2022 Number of Visits: up to 1 visits Plan: Discontinue therapy Plan Comments: Patient to continue to see local lymphedema therapist and follow their plan of care Treatment interventions may include: Self-care/home management Lymph Recommendations: Daytime Compression Program: Daytime compression bandaging Nighttime Compression Program: Compression devices (comment) Caresia Additional Management: Would benefit from use of Flexitouch/pneumatic compression pump if cardiology clears for use Discharge Recommendations: Continue with 2x/week visits with [place] Lymphedema therapist to eventually be fitted for compression sleeve for right arm. Number of Performance Deficits (OT): 1 - 3 performance deficits Evaluation Complexity (OT): Low OT: Time Spent with Patient Evaluations OT Eval - Low Complexity : 15 min Therapeutic Interventions Bioimpedence Measure, Lymph (min): 5 min Home Management Training (min): 12 min Time Tracking Total Timed Units (min): 12 min Total Treatment Time (min): 32 min Yazmin Zaragoza M.S., O.T., [facility] QUALITY CONSULTANT documented in this encounter Plan of Treatment Not on file documented as of this encounter Visit Diagnoses Diagnosis Lymphedema Post Mastectomy Edema documented in this encounter Care Teams Stem Sizer Relationship Specialty Start Date End Date Elsewhere, Pcp PCP - General Internal Medicine 03/14/22 documented as of this encounter
--- OUTSIDE RECORDS SUMMARY | 2023-03-09 12:57 | XMS_ITS | Encounter Summary ---
Author Name Unknown Organization [facility] Address [address] [place] [address] Care Team Providers Care Asset Administrator Name Role Phone Elsewhere, Pcp Primary Care Provider Unavailabl e Reason for Visit * Outpatient (Routine) - Closed Specialty Diagnoses / Procedures Referred By Contact Referred To Contact Physical Medicine and Rehabilitation Diagnoses Lymphedema Post Mastectomy Radha Naidu M.D. [address] [place] [address] [facility] Referral ID Status Reason Start Date Expiration Date Visits Re quested Visits Authorized [id number] Closed 01/08/2022 01/08/2023 1 1 Encounter Details Date Type Department Care Team (Latest Contact Info) Description 03/18/2022 10:30 AM PERSONAL SECRETARY Comprehensive Visit Department of Physical Medicine and Rehabilitation in [place], [place] [address] [place] [address] King Gamboa M.D. [address] [place] [id number] Pain Shoulder Right (Primary Dx); Lymphedema Post Mastectomy Social History Tobacco Use [...] often do you attend chur ch or holiness services? More than 4 times per year 07/24/2020 Do you belong to any clubs o r organizations such as yazidism groups, unions, fraternal [...] Average Number of Drinks Not on file Frequency of Binge Drinking Not on file 07/01 Overall Financial Resource Strain (CARDIA) Answe r Date Recorded How hard is it for you to pa y for the very basics like food, housing, medical care, and heating? Not hard at all 07/24/2020 [facility] - Occupational [...] in a senior care (including now)? No 07/24/2020 Nutrition Answer Date [...] - Inhaled Oxygen Concentration - - Weight 65.4 kg (144 lb 2.9 oz) 03/18/2022 9:00 A M PERSONAL SECRETARY Height 164 cm (5' 4.57) 03/18/2022 9:00 AM PERSONAL SECRETARY Body Mass Index 24.32 03/18/2022 9:00 AM PERSONAL SECRETARY documented in this encounter Consult Notes * King Gamboa M.D. - 03/18/2022 10:30 AM CST SUBJECTIVE REQUESTING PROVIDER Radha Naidu M.D. REASON FOR CONSULT Right arm swelling. HISTORY OF PRESENT ILLNESS Mayra Quinn is a right-handed 76 y.o. female who presents with long history of right upper extremity edema. This patient was referred to the [facility] for persistent right upper extremity secondary lymphedema. This patient was diagnosed with breast cancer on the right side in 1997 leading to mastectomy and chemotherapy. Unfortunately she had recurrence in 2000 requiring extensive right axillary lymphadenectomy and radiation therapy. She has subsequently been in remission. However, the patient has developed persistent right upper extremity swelling. The last extensive workup for this was in 2017 with an MRI of the axillary region as well as right upper extremity lymphoscintigraphy. The l ymphoscintigraphy documented lymphedema and there was no evidence of cancer recurrence. The patientsubsequently has been seen by lymphedema therapist including at [facility] in the [facility] for persistent swelling. More recently, she has been working [place] a proper compression program. The patient stopped using compression when she developed her bouts of cellulitis as noted below and was told that it might a cause of the cellulitis. She now has returned to the use of low stretch compression wraps with her lymphedema therapist inconjunction with manual lymphatic drainage. Unfortunately, the bulky wraps are aggravating her chronic underlying right shoulder dysfunction. The patient has complained of left shoulder pain for a couple of years. She was seen at the [facility] for this about a year and a half ago and x-rays at the time noted moderate to advanced degenerative arthritis and the patient had a subacromial bursa injection with steroid followed by physical therapy with improvement. She now is complaining of pain in the right shoulder which happens with herbulky compression wraps. She is comfortable at rest but when she tries to elevate or rotate the right shoulder she develops pain. She did have outside x-rays of the right shoulder a little over two years ago. The patient apparently has had several bouts of right upper extremity cellulitis recently as well. The 1st bout of cellulitis was about five or six years ago. Over the last year she has had a couple of bouts. She has just recently completed antibiotics for such. The patient's past medical history includes coronary artery disease; type 2 diabetes mellitus; remote cardiac infarct in 1988; cardiac stents in 2015; hyperlipidemia; degenerative disc and degenerative joint disease of the cervical spine; right knee meniscectomy in 2003; total abdominal hysterectomy with bilateral salpingo-oophorectomy in 1990; and chronic right shoulder pain. The following portions of the patient's history were reviewed and updated as appropriate: allergies, current medications, medical history, social history, surgical history, and problem list. REVIEW OF SYSTEMS I have briefly reviewed the Review of Systems as noted on the Health history form. I am only responding to those symptoms which are directly relevant to the specific indication for my consultation. Bladder function: No complaint Bowel function: No complaint Cognitive abilities: No complaint Mood: No complaint PAST MEDICAL/SURGICAL HISTORY 1. Bilateral shoulder pain with underlying osteoarthritis 2. Remote history of myocardial infarction 3. Atherosclerotic heart disease 4. Hypertension 5. 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 Recurrent right upper extremity cellulitis 7. Hyperlipidemia 8. Type 2 diabetes mellitus 9. Sjogren's syndrome 10. Breast cancer on right 11. Status post right mastectomy with subsequent axillary lymphadenectomy SOCIAL HISTORY The patient is . They have four adult children who live in the [facility] area. OBJECTIVE VITAL SIGNS Height: [164 cm] 164 cm Weight: [65.4 kg] 65.4 kg BSA (Calculated - sq m): [1.72 sq meters] 1.72 sq meters BMI (Calculated): [24.3 kg/m??] 24.3 kg/m?? PHYSICAL EXAM General: A well-developed, well-nourished female no acute distress. Mental status: Alert, follows directions well. Fair historian. Gait/gross motor: Transitions sitting to standing to sitting independently. Her gait seems relatively stable and symmetric. Strength: Appears normal for age in the upper extremities with exception of the right shoulder external rotators and forward flexors which have less than antigravity function until the arm is at shoulder level or higher. Reflexes: Normal muscle tone in the upper extremities. Sensation: Grossly intact to touch in the upper extremities. Joint range of motion: Functional range of the upper extremities though she has limited forward flexion bilaterally with some impingement findings bilaterally. Palpation: Tender in the area of the supraspinatus of the right shoulder primarily. Skin: No open wounds or lesions of the upper extremities. Vascular: Relatively nonpitting edema of the right arm from axilla to wrist. No erythema or increased warmth or significant induration. Respiratory: No dyspnea. DIAGNOSTICS I have reviewed labs. ASSESSMENT / PLAN #1 Right-sided breast cancer The patient is status post mastectomy in 1997 followed by axillary lymphadenectomy a couple years later for recurrence as well as radiation therapy. She is being seen elsewhere for monitoring and apparently has remained disease free. #2 Right upper extremity swelling This was worked up extensively five years ago with a positive lymphoscintigraphy and diagnosis of secondary lymphedema of the arm. She has worked with lymphedema therapist in the past. They established a compression program which the patient stopped when she started developing cellulitis. She now has started another bout of treatment with a lymphedema therapist in [place]. They have restarted the use of compression wraps and massage with the intent of eventual compression garment fitting. The patient has been limited by right shoulder pain as the compression dressings are bulky and seem toexacerbate her symptoms. The patient will have evaluation by one of our lymphedema therapist for another opinion but the patient needs to continue with intervention by lymphedema therapy closer to home. #3 Shoulder pain By history the patient has had pain in both shoulders. The left shoulder was treated here with a subacromial bursa injection which was helpful. Now the patient is complaining more of right shoulder pain since restarting her lymphedema treatment. I suspect it is secondary to underlying degenerative a rthritis and rotator cuff arthropathy. If this continues to be a barrier to lymphedema treatment, Iwould consider repeating the x-rays to update them and then perhaps do a right subacromial steroid injection. #4 Recurrent cellulitis of the right arm I had a long discussion with the patient about the importance of controlling the lymphedema as thatis an aggravating factor. In addition, the patient will see infectious disease to see if it would be appropriate to start prophylactic treatment. Follow-up: I will recheck the patient tomorrow. I personally spent over half of a total 60 minutes face to face with the patient in counseling and discussion and/or coordination of care as described above. PPE use information for possible contact monitoring: PPE used during visit: Provider was wearing a mask throughout entire session. Patient was wearing a mask throughout entire session. ONAL SECRETARY documented in this encounter Plan of Treatment Not on file documented as of this encounter Visit Diagnoses Diagnosis Pain Shoulder Right- Primary Lymphedema Post Mastectomy documented in this encounter Care Teams Asset Administrator Relationship Specialty Start Date End Date Elsewhere, Pcp PCP - General Internal Medicine 03/14/22 documented as of this encounter
== END 2023-03-03 07:59 | disposition home or self-care (01) ==
LOC: NFLDREF 03-09 12:54
PROVIDERS: PCP Internal Medicine; Referring Provider Internal Medicine; Visit Provider Internal Medicine
DX: E11.9 Type 2 diabetes mellitus without complications (principal); M85.80 Other specified disorders of bone density and structure, unspecified site; N18.1 Chronic kidney disease, stage 1
CPT/HCPCS: 82306

== ENCOUNTER 2023-07-30 10:10 | Outpatient (CLI) | payer MEDICARE, OTHER, SELFPAY | END 2023-07-30 10:11 | disposition home or self-care (01) | LOC: NFLDREF 08-19 06:27 | PROVIDERS: PCP Internal Medicine; Referring Provider Internal Medicine; Visit Provider Internal Medicine Nephrology | DX: I97.2 Postmastectomy lymphedema syndrome (principal); N18.1 Chronic kidney disease, stage 1; I10 Essential (primary) hypertension; E11.9 Type 2 diabetes mellitus without complications; I25.10 Atherosclerotic heart disease of native coronary artery without angina pectoris | CPT/HCPCS: 80061; 80069; 82043; 82570; 82728; 83540; 83550; 84450; 84460; 84550; 86140 ==

== ENCOUNTER 2023-09-23 09:48 | Outpatient (CLI) | payer MEDICARE, OTHER, SELFPAY ==
--- OUTSIDE RECORDS SUMMARY | 2023-09-23 09:51 | XMS_ITS ---
Author Organization [facility] Address [address] [place] [address] Care Team Providers Care Supply Chain Generalist Name Role Phone Unavailable Unavailable Unavailable Surgery Details Not on file Complications Check Surgery Details section. Procedure Estimated Blood Loss Check Surgery Details section. Procedure Findings Check Surgery Details section. Procedure Specimens Taken Check Surgery Details section.
--- OUTSIDE RECORDS SUMMARY | 2023-09-23 09:51 | XMS_ITS | Referral Summary ---
Author Organization [facility] Address [address] [place] [address] Care Team Providers Care Hardening Machine Operator Helper Name Role Phone Elsewhere, Pcp Primary Care Provider Unavailabl e Source Comments Patient records contain information from all sites at [facility]. For routine questions regarding patient records, call [phone] during business hours, M-F 8:00 AM - 5:00 PM Central Time. Record requests for emergency care only can be directed to [phone] at any time.[facility] Encounters Date Type Department Care Team Description 08/05/2023 11:30 AM CDT External Outreach Division of Nephrology and Hypertension in [place], [place] [address] [place] [address] King Garza Jr., D.O. Hypertension And Chronic Kidney Disease Stage 1 (Primary Dx); Diabetes Mellitus Type 2 Without Complication (HCC); Anemia Iron Deficiency; Sjogren's (Sicca) Syndrome (HCC) 07/02/2023 Refill Section of Infectious Diseases in [place], [place] [address] [place] [address] Nguyen Beard M.B., Ch.B. Med Refill from Last 3 Months Allergies Active Allergy [...] tablet Take 81 mg by mouth daily. Active atenoloL-chlorthalid one (TENORETIC) 100-25 mg per tablet Take 25 mg by mouth daily. 01/31/2022 Active gabapentin (NEURONTIN) 600 mg tablet Take 600 mg by mouth 2 (two) times a day. 11/26/2021 Active lansoprazole (PREVACID) [address] capsule Take 30 mg by mouth daily. 09/10/2021 Active losartan (COZAAR) 25 mg tablet Take 25 mg by mouth 2 (two) times a day. 01/31/2022 Active metFORMIN (GLUCOPHAGE) 500 mg tablet Take 500 mg by mouth 2 (two) times a day. 11/26/2021 Active multivitamin with minerals capsule Take 1 tablet by mouth daily. 06/22/2010 Active rosuvastatin (CRESTOR) 40 mg tablet Take 40 mg by mouth daily. 09/10/2021 Active atenoloL (TENORMIN) 25 mg tablet Take 1 tablet by mouth daily. 01/31/2022 Active gabapentin (NEURONTIN) 600 mg tablet Take 2 tablets by mouth every evening. 06/03/2021 Active lansoprazole (PREVACID) [address] capsule Take 1 capsule by mouth daily. 04/17/2021 Active nitroglycerin (NITROSTAT) 0.[address] 0.4 mg under the tongue every 2 (two) hours as needed. 01/16/2017 Active rosuvastatin (CRESTOR) 40 mg tablet Take 1 tablet by mouth daily. 01/18/2019 Active cefadroxil (DURICEF) 1 gram tablet Take 1 g by mouth as needed. 10/04/2022 Active UNABLE TO FIND Take 1 each by mouth daily. Med Name: VIACTIV CALCIUM Active penicillin V potassium (VEETIDS) 500 mg tablet Take 1 tablet (500 mg) by mouth 2 (two) times a day. 180 tablet 07/02/2023 Active Active Problems Problem Noted Date Diagnosed Date Anemia Iron Deficiency 08/04/2022 Atherosclerotic Heart Diseas e Of [place] Coronary Artery Without Angina Pectoris 02/03/2022 Diabetes [...] Date Smoking Tobacco: Former Cigarettes Q uit: 1988 Smokeless Tobacco: Never Tobacco [...] often do you attend chur ch or anabaptist services? More than 4 times per year 06/10/2022 Do you belong to any clubs o r organizations such as episcopalian groups, unions, fraternal or athletic groups, or [...] or slept in a alf (including now)? No 06/10/2022 Nutrition Answer Date [...] Sign Reading Time Taken Comments Blood Pressure 137/79 08/05/2023 11:43 AM CDT Pulse 56 08/05/2023 11:43 AM CDT Temperature 36.1 ??C (97 ??F) 03/18/2022 3:35 PM CNC PROGRAMMER Respiratory Rate - - Oxygen Saturation - - Inhaled Oxygen Concentration - - Weight 63.7 kg (140 lb 6.9 oz) 08/05/2023 11:43 AM CDT Height 162.5 cm (5' 3.98) 08/05/2023 11:43 AM C DT Body Mass Index 24.12 08/05/2023 11:43 AM CDT Plan of Treatment Not on file Medical Devices Implanted Type Area Lock Tender Device Identifier Shelf Expiration Date Model / Serial / Lot Conversions - Default Historical Implant Device Implanted:2016 (Quantity not on file) Cardiac Stent Chest Description:Body Location - Chest. Device Status Text - Cardiac. Procedures Procedure Name Priority Date/Time Associated Diagnosis Comments HEMOGLOBIN A1C, B Routine 03/18/2022 8:5 5 AM CNC PROGRAMMER Lymphedema Post Mastectomy Diabetes Mellitus Type 2 With Other Complication (HCC) SODIUM, S/P Routine 03/18/2022 8:55 AM CNC PROGRAMMER Lymphedema Post Mastectomy POTASSIUM, S/P Routine 03/18/2022 8:55 AM CNC PROGRAMMER Lymphedema Post Mastectomy CREATININE WITH EGFR, S/P Routine 03/18/2022 8:55 AM CNC PROGRAMMER Lymphedema Post Mastectomy COLONOSCOPY Routine 08/04/2012 8:46 AM CDT BI BREAST SCREENING UNILATERAL Routine 07/05/2009 7:29 AM CDT from Last 3 Months or Most Recently Relevant to Health Maintenance Results * Sodium (03/18/2022 8:55 AM CNC PROGRAMMER) Sodium, S 143 135 - 145 mmol/L 03/18/2022 10:02 AM CNC PROGRAMMER DTL Blood (Blood, Venous) 03/18/2022 8:55 AM CNC PROGRAMMER 03/18/2022 9:19 AM CNC PROGRAMMER King Gamboa M.D. LAB BLOOD ADD-ON Performing Organization Address City/[facility]/ZIP Co de Phone Number [facility] [address] [place], [place] [id number] [place] [address] [facility] [address] [place] [address] * Potassium (03/18/2022 8:55 AM CNC PROGRAMMER) Potassium, S 4.7 3.6 - 5.2 mmol/L 03/18/2022 10:02 AM CNC PROGRAMMER DT Blood (Blood, Venous) 03/18/2022 8:55 AM CNC PROGRAMMER 03/18/2022 9:19 AM CNC PROGRAMMER King Gamboa M.D. LAB BLOOD ADD-ON [facility] [address] [place] [address], [facility] [place] [address] * (ABNORMAL) Hemoglobin A1c (03/18/2022 8:55 AM CNC PROGRAMMER) Hemoglobin A1c, B 5.8(H) 4.0 - 5.6 % 03/18/2022 10:01 AM CNC PROGRAMMER DT Comment: Hemoglobin A1c values of 5.7-6.4 percent indicate an increased risk for developing diabetes mellitus. In diabetic patients, HbA1c goals should be discussed with healthcare provider. Blood (Blood, Venous) 03/18/2022 8:55 AM CNC PROGRAMMER 03/18/2022 9:17 AM CNC PROGRAMMER King Gamboa M.D. LAB BLOOD ADD-ON Performing Organization Address [facility] Co de Phone Number [facility] [address] [facility] [address] [place] [address] * Creatinine with Estimated GFR (03/18/2022 8:55 AM CNC PROGRAMMER) Creatinine 0.88 0.59 - 1.04 mg/dL 03/18/2022 10:02 AM CNC PROGRAMMER DTL Estimated GFR (eGFR) 68 >=60 mL/min/BSA 03/18/2022 10:02 AM CNC PROGRAMMER DTL Comment: Estimated GFR calculated using the 2020 CKD_EPI creatinine equation. Blood (Blood, Venous) 03/18/2022 8:55 AM CNC PROGRAMMER 03/18/2022 9:19 AM CNC PROGRAMMER King Gamboa M.D. LAB BLOOD ADD-ON Performing Organization Address [facility] Co de Phone Number [facility] [address] [place] [address], [facility] [address] [place] [address] * Colonoscopy (08/04/2012 8:46 AM CDT) 08/04/2012 8:46 AM CDT Milady Tse M.D. GI PROCEDURE O RDERABLES [facility] [address] [place] [address] * BI Breast Screening (07/05/2009 7:29 AM CDT) Anatomical Region Laterality Modality Breast N/A Mammography 07/05/2009 7:29 AM CDT Narrative 07/05/2009 9:57 AM CDT 05-Jul-2009 07:29:00 ??Exam: MG /Screening Exam Indications: ca breast adenocarcinoma;colonoscopy abnormal ORIGINAL REPORT - 05-Jul-2009 09:57:00 Digital Screening Mammography: EXAM: Unilateral left digital screening mammogram. Computer-aided detection equipment was used during interpretation. ?? COMPARISON: Prior [facility] mammograms. DENSITY: Scattered fibroglandular densities. FINDINGS: No mammographic findings of malignancy. RECOMMENDATION: Annual screening mammography. ASSESSMENT: Negative. ??P1, D2, M1, L1S ?? Electronically signed by: ?? Wild Fisher MD [id number] ([id number]) 05-Jul-2009 09:57 ?Khushboo Hdez, ??D.O. ??[id number] 05-Jul-2009 09:57 Procedure Note Fani Hdez D.O. - 05/31/2017 05-Jul-2009 07:29:00 Exam: MG /Screening Exam Indications: ca breast adenocarcinoma;colonoscopy abnormal ORIGINAL REPORT - 05-Jul-2009 09:57:00 Digital Screening Mammography: EXAM: Unilateral left digital screening mammogram. Computer-aided detection equipment was used during interpretation. COMPARISON: Prior [facility] mammograms. DENSITY: Scattered fibroglandular densities. FINDINGS: No mammographic findings of malignancy. RECOMMENDATION: Annual screening mammography. ASSESSMENT: Negative. P1, D2, M1, L1S Electronically signed by: Wild Fisher MD [phone] ([id number]) 05-Jul-2009 09:57 Khushboo Hdez D.O.[id number] 05-Jul-2009 09:57 Radha MAZA BI PROCEDUR ES from Last 3 Months or Most Recently Relevant to Health Maintenance Care Teams Hardening Machine Operator Helper Relationship Specialty Start Date End Date Elsewhere, Pcp PCP - General Internal Medicine 03/14/22
--- OUTSIDE RECORDS SUMMARY | 2023-09-23 09:51 | XMS_ITS | Continuity of Care Document ---
Author Organization [facility] Address [address] [place] [address] Phone Care Team Providers Care Sleeve Ironer Name Role Phone Stewart Chris DO Unavailable Unavailable Allergies, Adverse Reactions, Alerts Substance Reaction Status Criticality Sulfa (Sulfonamide Antibiotics) Active No Information latex Active No Information Medications Medication Instructions Dosage Effective Dates (start - stop) Status Comments cevimeline 30 mg capsule take 1 capsule by oral route 4 times every day 30 MG - Active Tylenol PM Extra Strength 25 mg-500 mg tablet take 1 Tablet by oral route every day at bedtime 1 Tablet - Active Viactiv 500 mg-500 unit-40 mcg chewable tablet BID - Active Bufferin 81 mg tablet Take 1 daily - Activ e gabapentin 300 mg capsule take 1 capsule by oral route 3 times every day 300 MG - Active atenolol 25 mg tablet take 1 tablet by o ral route 2 times every day 25 MG - Active lansoprazole 30 mg capsule,delayed release take 1 Capsule by oral route every day before a meal 30 MG - Active losartan 25 mg tablet take 1 tablet by o ral route every day 25 MG - Active pravastatin 40 mg tablet take 1 tablet by oral route every day 40 MG - Active metformin 500 mg tablet take 1 tablet by oral route 2 times every day with morning and evening meals 500 MG - Active Procedures Procedure Date Office/Outpatient Visit, [...] [facility], [address], [place], [address], [place] tel:[phone] [facility], Dry mouth (chief complaint) Dry mouthOther fatigue 5 Aries William. [facility] [address], [place], [address], [place]. tel:[phone] Referring Provider: Stewart Houston, [facility] [address], [place], [address]. tel:[phone] Office/Outpa tient Visit, New [facility], [address], [place], [address], [place] tel:[phone] [facility], Dry Mouth (chief complaint) Dry mouthOther fatigue 5 Aries William. [facility] [address], [place], [address], [place]. tel:[phone] Referring Provider: Stewart Houston, [facility] [address], [place], [place], [facility]. tel:[phone] Family History Family Member Type Diagnosis Age At Onset Brother Problem (finding) colitis Payers Payer name Insurance type Covered constitution party ID Authoriza tion(s) Medicare MB [id number] [employer] [id number] Social History Type Description Quantity Date Captured [...] No Information Instructions Date Instruction Additional Infor matmaira No Information Assessments Type Assessment Date assessment Dry mouth assessment Other fatigue Mental Status Date Cognitive Assessment Orientation - [place] ed to time, place, person, situation. Patient Care Teams Name Effective Dates (start - stop) Status Members No Information
--- OUTSIDE RECORDS SUMMARY | 2023-09-23 09:51 | XMS_ITS | Encounter Summary ---
Author Organization [facility] Address [address] [place] [address] Care Team Providers Care Boiler/Chiller Operator Name Role Phone Elsewhere, Pcp Primary Care Provider Unavailabl e Reason for Visit * Appointment Request (Routine) - Closed Specialty Diagnoses / Procedures Referred By Franky t Referred To Contact Nephrology and Hypertension Referral ID Status Reason Start Date Expiration Date Visits Re quested Visits Authorized [id number] Closed 07/02/2023 07/01/2024 1 1 Encounter Details Date Type Department Care Team (Latest Contact Info) Description 08/05/2023 11:30 AM CDT External Outreach Division of Nephrology and Hypertension in [place], [place] [address] [place] [address] King Garza Jr., D.O. [address] [place] [phone] Hypertension And Chronic Kidney Disease Stage 1 (Primary Dx); Diabetes Mellitus Type 2 Without Complication (HCC); Anemia Iron Deficiency; Sjogren's (Sicca) Syndrome (HCC) Social History Tobacco Use Types Packs/Day Years Used Date Smoking Tobacco: Former Cigarettes Q uit: 1988 Smokeless Tobacco: Never Humiliation, [...] How often do you attend chur or tenriism services? More than 4 times per year 06/10/2022 Do you belong to any clubs o r organizations such as evangelical groups, unions, fraternal [...] and heating? Not hard at all 06/10/2022 [facility] of Occupat ional Health - Occupational Stress [...] or slept in a half-way (including now)? No 06/10/2022 Nutrition Answer Date [...] Pulse 56 08/05/2023 11:43 AM CDT Temperature - - Respiratory Rate - - Oxygen Saturation - - Inhaled Oxygen Concentration - - Weight 63.7 kg (140 lb 6.9 oz) 08/05/2023 11:43 AM CDT Height 162.5 cm (5' 3.98) 08/05/2023 11:43 AM C DT Body Mass Index 24.12 08/05/2023 11:43 AM CDT documented in this encounter Progress Notes * King Garza Jr., D.O. - 08/05/2023 11:30 AM CDT Referring Provider: ELSEWHERE, PCP SUBJECTIVE REASON FOR VISIT [place] out reach CKD Follow-up regards CKD stage 1 with microalbuminuria HISTORY OF PRESENT ILLNESS Ms. Quinn is a 77 y.o. female who presents with a history of microalbuminuria on the background of previous breast cancer with recurrence, requiring chemotherapy, sicca syndrome, and diabetes mellitus type 2. Her diabetes has been very well controlled she has had no hypoglycemic events, her hemoglobin A1c is 6.1% and I congratulated her. She continues on metformin. Blood pressure has been excellent she has had no orthostatic issues. She has no constitutional complaints no fevers no chills no pain, appetite energy and overall senseof well-being are preserved. She is now on prophylactic penicillin regarding her previous left upper extremity lymphedema and infections this has been quite successful for her. She walks 3 miles nearly daily outdoors! No past medical history on file. Current Outpatient Medications: aspirin [address] tablet, Take 81 mg by mouth daily., Disp: , Rfl: atenoloL (TENORMIN) 25 mg tablet, Take 1 tablet by mouth daily., Disp: , Rfl: atenoloL-chlorthalidone (TENORETIC) 100-25 mg per tablet, Take 25 mg by mouth daily., Disp: , Rfl: cefadroxil (DURICEF) 1 gram tablet, Take 1 g by mouth as needed., Disp: , Rfl: gabapentin (NEURONTIN) 600 mg [...] 500 mg tablet, Take 1 tablet (500 mg) by mouth 2 (two) times a day., Disp: 180 tablet, Rfl: 0 rosuvastatin (CRESTOR) 40 mg tablet, Take 40 mg by mouth daily., Disp: , Rfl: rosuvastatin (CRESTOR) 40 mg tablet, Take 1 tablet by mouth daily., Disp: , Rfl: UNABLE TO FIND, Take 1 each by mouth daily. Med Name: VIACTIV CALCIUM, Disp: , Rfl: REVIEW OF SYSTEMS All other systems reviewed and are negative. OBJECTIVE BP 137/79 Pulse (!) 56 Ht 162.5 cm Wt 63.7 kg BMI 24.12 kg/m?? PHYSICAL EXAMINATION General: Awake alert oriented HEENT: DANNY, EOMI, Mucous membranes moist, no oral lesions Neck: No Masses, No Bruits Lungs: Clear to ascultation Heart: Regular Rate and Rhythm, No ectopy Murmurs or rubs Abdomen: Soft, Non-tender Extremities: No cyanosis, No clubbing: No edema Neuro: Cranial Nerves intact, Gait is normal, strength grossly normal Skin: no suspicious lesions identified Psychiatric: Normal affect DIAGNOSTICS Note excellent hemoglobin at 11.9, normal serum creatinine microalbumin to creatinine ratio stable at 320 milligrams/gram, hemoglobin A1c 6.1% normal chemistries normal CBC otherwise ASSESSMENT / PLAN #1 Hypertension And Chronic Kidney Disease Stage 1 This is on the background of 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 I congratulated her on the stability of her renal function Going forward: 1. Goal blood pressures less than 130s over 80s which have been achieved 2. Goal glycosylated hemoglobin level less than 8% which has been achieved 3. No NSAIDs or Ba 2 inhibitors 4. Stay well hydrated-which she does on the background of her dry mouth 5. We will monitor carefully for any signs of interstitial nephritis from the penicillin therapy. #2 Diabetes Mellitus Type 2 Without Complication (HCC) Excellent diabetic control, she will continue her metformin I congratulated her. #3 Anemia Iron Deficiency Iron levels are acceptable other her% sat is slightly low. Her hemoglobin is 11.9 I congratulated her. #4 Sjogren's (Sicca) Syndrome (HCC) She is managing this well, she uses mouth coat and Biotene as well as plenty of fluids. Total time: 30 minutes Counseling Time: 25 minutes King Garza Jr., D.O. documented in this encounter Plan of Treatment Not on file documented as of this encounter Visit Diagnoses Diagnosis Hypertension And Chronic Kidney Disease Stage 1- Primary Diabetes Mellitus Type 2 Without Complication (HCC) Anemia Iron Deficiency Sjogren's (Sicca) Syndrome (HCC) documented in this encounter Care Teams Boiler/Chiller Operator Relationship Specialty Start Date End Date Elsewhere, Pcp PCP - General Internal Medicine 03/14/22 documented as of this encounter
--- OUTSIDE RECORDS SUMMARY | 2023-09-23 09:51 | XMS_ITS | Clinical Summary ---
Author Organization [facility] Address [address] [place] [address] Care Team Providers Care Director Of Corporate Real Estate Name Role Phone Elsewhere, Pcp Primary Care Provider Unavailabl e Source Comments Patient records contain information from all sites at [facility]. For routine questions regarding patient records, call [phone] during business hours, M-F 8:00 AM - 5:00 PM Central Time. Record requests for emergency care only can be directed to [phone] at any time.[facility] Allergies Active Allergy Reactions Criticality Noted Date [...] Deficiency 08/04/2022 Atherosclerotic Heart Diseas e Of [place] Coronary Artery Without Angina Pectoris 02/03/2022 Diabetes [...] Outreach Division of Nephrology and Hypertension in [place], [place] [address] [place] [address] King Garza Jr., D.O. Hypertension And Chronic Kidney Disease Stage 1 (Primary Dx); Diabetes Mellitus Type 2 Without Complication (HCC); Anemia Iron Deficiency; Sjogren's (Sicca) Syndrome (HCC) 07/02/2023 Refill Section of Infectious Diseases in [place], [place] [address] [place] [address] Nguyen Beard M.B., Ch.B. Med Refill from Last 3 Months Immunizations Name Administration [...] often do you attend chur ch or christianity services? More than 4 times per year [...] and heating? Not hard at all 06/10/2022 [facility] of Occupat ional Health - Occupational [...] in a skilled nursing (including now)? No 06/10/2022 Nutrition Answer Date [...] 36.1 ??C (97 ??F) 03/18/2022 3:35 PM DIRECTOR OF CORPORATE SALES Respiratory Rate - - Oxygen Saturation - - Inhaled Oxygen Concentration - - Weight 63.7 kg (140 lb 6.9 oz) 08/05/2023 11:43 AM CDT Height 162.5 cm (5' 3.98) 08/05/2023 11:43 AM C DT Body Mass Index 24.12 08/05/2023 11:43 AM CDT Plan of Treatment Health Maintenance Due Date Last Done Comments Diabetic Office Visit with F oot Exam 1945 Dilated Eye Exam 1945 Hepatitis C Screening 1945 Urine Albumin 1945 Hepatitis B Vaccines (1 of 3 - Risk 3-dose series) 2005 Hemoglobin A1C 09/15/2022 03/18/2022 Depression Screening (Annual PHQ-2) 03/02/2023 Fall Risk Screen (Annual) 03/02/2023 Creatinine Level (Kidney Fun ction Test) 03/18/2023 03/18/2022, 12/08/2018, 08/12/2018, Additional history exists Potassium Level 03/18/2023 03/18/2022, 08/12/2018 Sodium Level 03/18/2023 03/18/2022, 08/12/2018 Influenza Vaccine (#1) 2023 , 12/01/2021, 12/26/2020, Additional history exists Office Visit for Blood Press ure Check / Re-check 08/04/2024 08/05/2023 DTaP,Tdap,and Td Vaccines (4 - Td or Tdap) 04/13/2028 04/13/2018, 01/09/2012, 08/10/2007, Additional history exists Colonoscopy Discontinued 08/04/2012, 08/2009, 08/22/2002 Colorectal Cancer Screening Discontinued Mammogram Discontinued 03/11/2016 (Perf ormed elsewhere), 02/16/2014 (Performed elsewhere), 01/17/2013 (Performed elsewhere), Additional history exists Pneumococcal vaccine (65+ years) Completed 12/10/2017, 03/09/2015, 04/08/2011, Additional history exists Zoster Vaccines Completed 03/30/2018, 11/30, 04/08/2011, Additional history exists COVID-19 Vaccine Completed 06/14/2023, , 09/05/2022, Additional history exists CT Colonography Discontinued Cologuard Discontinued FIT Discontinued Medical Devices Implanted Type Area Head Of Geography Device Identifier Shelf Expiration Date Model / Serial / Lot Conversions - Default Historical Implant Device Implanted:2016 (Quantity not on file) Cardiac Stent Chest Description:Body Location - Chest. Device Status Text - Cardiac. Procedures Procedure Name Priority Date/Time Associated Diagnosis Comments HEMOGLOBIN A1C, B Routine 03/18/2022 8:5 5 AM DIRECTOR OF CORPORATE SALES Lymphedema Post Mastectomy Diabetes Mellitus Type 2 With Other Complication (HCC) SODIUM, S/P Routine 03/18/2022 8:55 AM DIRECTOR OF CORPORATE SALES Lymphedema Post Mastectomy POTASSIUM, S/P Routine 03/18/2022 8:55 AM DIRECTOR OF CORPORATE SALES Lymphedema Post Mastectomy CREATININE WITH EGFR, S/P Routine 03/18/2022 8:55 AM DIRECTOR OF CORPORATE SALES Lymphedema Post Mastectomy COLONOSCOPY Routine 08/04/2012 8:46 AM CDT BI BREAST SCREENING UNILATERAL Routine 07/05/2009 7:29 AM CDT from Last 3 Months or Most Recently Relevant to Health Maintenance Results * Sodium (03/18/2022 8:55 AM DIRECTOR OF CORPORATE SALES) Sodium, S 143 135 - 145 mmol/L 03/18/2022 10:02 AM DIRECTOR OF CORPORATE SALES DT Blood (Blood, Venous) 03/18/2022 8:55 AM DIRECTOR OF CORPORATE SALES 03/18/2022 9:19 AM DIRECTOR OF CORPORATE SALES King Gamboa M.D. LAB BLOOD ADD-ON Performing Organization Address City/[facility]/ZIP Co de Phone Number [facility] [address] 200 [place] [phone] * Potassium (03/18/2022 8:55 AM DIRECTOR OF CORPORATE SALES) Potassium, S 4.7 3.6 - 5.2 mmol/L 03/18/2022 10:02 AM DIRECTOR OF CORPORATE SALES DT Blood (Blood, Venous) 03/18/2022 8:55 AM DIRECTOR OF CORPORATE SALES 03/18/2022 9:19 AM DIRECTOR OF CORPORATE SALES King Gamboa M.D. LAB BLOOD ADD-ON Performing Organization Address City/[facility]/ZIP Co de Phone Number [facility] 200 [place] [address], [place] [address] * (ABNORMAL) Hemoglobin A1c (03/18/2022 8:55 AM DIRECTOR OF CORPORATE SALES) Hemoglobin A1c, B 5.8(H) 4.0 - 5.6 % 03/18/2022 10:01 AM DIRECTOR OF CORPORATE SALES DT Comment: Hemoglobin A1c values of 5.7-6.4 percent indicate an increased risk for developing diabetes mellitus. In diabetic patients, HbA1c goals should be discussed with healthcare provider. Blood (Blood, Venous) 03/18/2022 8:55 AM DIRECTOR OF CORPORATE SALES 03/18/2022 9:17 AM DIRECTOR OF CORPORATE SALES King Gamboa M.D. LAB BLOOD ADD-ON Performing Organization Address [facility] de Phone Number [facility] 200 [place] [address], [facility] 200 [place] [address] * Creatinine with Estimated GFR (03/18/2022 8:55 AM DIRECTOR OF CORPORATE SALES) Creatinine 0.88 0.59 - 1.04 mg/dL 03/18/2022 10:02 AM DIRECTOR OF CORPORATE SALES DTL Estimated GFR (eGFR) 68 >=60 mL/min/BSA 03/18/2022 10:02 AM DIRECTOR OF CORPORATE SALES DT Comment: Estimated GFR calculated using the 2020 CKD_EPI creatinine equation. Blood (Blood, Venous) 03/18/2022 8:55 AM DIRECTOR OF CORPORATE SALES 03/18/2022 9:19 AM DIRECTOR OF CORPORATE SALES King Gamboa M.D. LAB BLOOD ADD-ON Performing Organization Address [facility] de Phone Number [facility] 200 [place] [address], [facility] 200 [place] [address] * Colonoscopy (08/04/2012 8:46 AM CDT) 08/04/2012 8:46 AM CDT Milady Tse M.D. GI PROCEDURE O RDERABLES Performing Organization Address [facility] Co de Phone Number [facility] [address] [place] [address] * BI Breast Screening (07/05/2009 7:29 AM CDT) Anatomical Region Laterality Modality Breast N/A Mammography 07/05/2009 7:29 AM CDT Narrative 07/05/2009 9:57 AM CDT 05-Jul-2009 07:29:00 ??Exam: MG /Screening Exam Indications: ca breast adenocarcinoma;colonoscopy abnormal ORIGINAL REPORT - 05-Jul-2009 09:57:00 Digital Screening Mammography: EXAM: Unilateral left digital screening mammogram. Computer-aided detection equipment was used during interpretation. ?? COMPARISON: Prior [facility] mammograms. DENSITY: Scattered fibroglandular densities. FINDINGS: No mammographic findings of malignancy. RECOMMENDATION: Annual screening mammography. ASSESSMENT: Negative. ??P1, D2, M1, L1S ?? Electronically signed by: ?? Wild Fisher MD [phone] ([id number]) 05-Jul-2009 09:57 ?Khushboo Hdez, ??D.O. ??[id number] 05-Jul-2009 09:57 Procedure Note Fani Hdez D.O. - 05/31/2017 05-Jul-2009 07:29:00 Exam: MG /Screening Exam Indications: ca breast adenocarcinoma;colonoscopy abnormal ORIGINAL REPORT - 05-Jul-2009 09:57:00 Digital Screening Mammography: EXAM: Unilateral left digital screening mammogram. Computer-aided detection equipment was used during interpretation. COMPARISON: Prior [facility] mammograms. DENSITY: Scattered fibroglandular densities. FINDINGS: No mammographic findings of malignancy. RECOMMENDATION: Annual screening mammography. ASSESSMENT: Negative. P1, D2, M1, L1S Electronically signed by: Wild Fisher MD [phone] ([id number]) 05-Jul-2009 09:57 Khushboo Hdez D.O.[id number] 05-Jul-2009 09:57 Radha MAZA BI DEA ES from Last 3 Months or Most Recently Relevant to Health Maintenance Care Teams Director Of Corporate Real Estate Relationship Specialty Start Date End Date Elsewhere, Pcp PCP - General Internal Medicine 03/14/22
--- OUTSIDE RECORDS SUMMARY | 2023-09-23 09:51 | XMS_ITS | Clinical Summary ---
Author Organization [facility] Address [place], [place] [address] Care Team Providers Care Full Time Name Role Phone Pcp, No Unavailable Unavailable Gumaro Powell MD Primary Care Provider [phone] Allergies Active Allergy Reactions Criticality Noted Date Comments Latex 08/21/2004 Atorvastatin Other - Describe In Comment Field 12/10/2015 Facial swelling Lisinopril Cough 12/07/2015 Preservative Angioedema 12/07/2015 Saline Preservative Sulfa (Sulfonamide Antibiotics) 08/21/2004 Medications Medication Sig Dispensed Refills Start Date End Date Status lansoprazole (PREVACID) 30 mg capsule Take 30 mg by mouth once daily. Active gabapentin 600 mg Tb24 Take 1,200 mg by mouth at bedtime. Active ASPIRIN (ASPIR-81 ORAL) Take 81 mg by mouth once daily. Active nitroglycerin (NITROSTAT) 0.4 mg sublingual tabletIndications:C oronary artery disease, angina presence unspecified, unspecified vessel or lesion type, unspecified whether [facility] or transplanted heart Place 1 tablet under the tongue every 5 minutes if needed for Chest Pain. 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 180 tablet 3 12/11/2017 Active atenolol (TENORMIN) 25 mg tabletIndications:E ssential hypertension,Mccall ry artery disease of [facility] artery of [place] heart with stable angina pectoris (HC) Take 1 tablet by mouth once daily. 90 tablet 3 12/11/2017 Active Blood Pressure Monitor (BLOOD PRESSURE KIT)Indications:HTN (hypertension) monitor home blood pressure 2-3 times per week; Goal BP <130 / 80 mm Hg 1 Device 07/22/2018 Active metFORMIN (GLUCOPHAGE) 500 mg tablet Take 2 tablets by mouth once daily with evening meal. Do not take until Thursday, August 15 0 08/12/2018 Active Blood Pressure Monitor (BLOOD PRESSURE KIT)Indications:HTN (hypertension) Take random blood pressures 2-3 times per week, goal to be consistently less than 130/80 1 Device 10/06/2018 Active rosuvastatin (CRESTOR) 40 mg tabletIndications:C oronary artery disease, angina presence unspecified, unspecified vessel or lesion type, unspecified whether [facility] or transplanted heart TAKE 1 TABLET AT BEDTIME 90 tablet 2 01/18/2019 Active penicillin v potassium (PEN-VEE K) 500 mg tablet Take 500 mg by mouth two times daily before meals. 12/10/2022 Active Active Problems Problem Noted Date Diagnosed [...] of large [place] in 1988, found to have LAD lesion. [...] for coronary artery disease Abnormal stress echo Family History Medical History Relation Name Comments [...] Sign Reading Time Taken Comments Blood Pressure 153/80 04/23/2023 10:08 AM DOLLY OPERATOR Pulse 52 04/23/2023 10:08 AM DOLLY OPERATOR Temperature 35.9 ??C (96.6 ??F) 08/12/2018 1 0:45 AM CDT Respiratory Rate 19 08/12/2018 10:4 5 AM CDT Oxygen Saturation 97% 04/23/2023 10: 08 AM DOLLY OPERATOR Inhaled Oxygen Concentration - - Weight 65.2 kg (143 lb 12.8 oz) 024 10:08 AM DOLLY OPERATOR Height 165.1 cm (5' 5) 04/23/2023 10:0 8 AM DOLLY OPERATOR Body Mass Index 23.93 04/23/2023 10:08 AM DOLLY OPERATOR Plan of Treatment Health Maintenance Due Date [...] for age 65+ 2010 COVID-19 vaccine series (2022- season) 2023 11/29/2022, 09/05/2022, 12/10/2021, Additional history exists Influenza for age 65+ 11/01/2023 BMI (ht and wt on same day) for age 18+ 04/23/2024 04/23/2023, 10/09/2021, 08/31/2020, Additional history exists Advance Directives * Full Code (Latest Code Status on File) Date Activated Date Inactivated Comments 08/12/2018 8:28 AM 08/12/2018 1:21 PM * Full Code Date Activated Date Inactivated Comments 12/09/2015 8:36 AM 12/11/2015 3:29 PM * Full Code Date Activated Date Inactivated Comments 12/07/2015 9:43 PM 12/09/2015 8:36 AM Question Answer Comments Code Status Discussion: Discussed Care Teams Full Time Relationship Specialty Start Date End Date Gumaro Powell MD [address] [place] [address] PCP - General Family Practice 12/28/15 Pcp, No . 12/07/15
--- OUTSIDE RECORDS SUMMARY | 2023-09-23 09:51 | XMS_ITS | Encounter Summary ---
Author Organization [facility] Address [address] [place] [address] Care Team Providers Care Audiovisual Lead Technician Name Role Phone Elsewhere, Pcp Primary Care Provider Unavailabl e Encounter Details Date Type Department Care Team (Late st Contact Info) Description 07/08/2017 [facility] AND [address] [address] Gumaro Powell M.D. [address] [place] [phone] Social History Tobacco Use Types Packs/Day Years [...] on filedocumented in this encounter Care Teams Audiovisual Lead Technician Relationship Specialty Start Date End Date Elsewhere, Pcp PCP - General Internal Medicine 03/14/22 documented as of this encounter
--- OUTSIDE RECORDS SUMMARY | 2023-09-23 09:51 | XMS_ITS | Encounter Summary ---
Author Organization [facility] Address [address] [place] [address] Care Team Providers Care Library Circulation Department Chief Name Role Phone Elsewhere, Pcp Primary Care Provider Unavailabl e Reason for Visit * Reason Comments Med Refill Encounter Details Date Type Department Care Team ([facility] st Contact Info) Description 07/02/2023 Refill Section of Infectious Diseases in [place], [place] [address] [place] [phone] Nguyen Beard M.B., Ch.B. [address] [place] [phone] Med Refill Social History Tobacco Use Types Packs/Day Years [...] often do you attend chur ch or orthodox services? More than 4 times per year 06/10/2022 Do you belong to any clubs o r organizations such as yazidi groups, unions, fraternal or athletic groups, or [...] and heating? Not hard at all 06/10/2022 [facility] of Occupat ional Health - Occupational [...] or slept in a intermediate (including now)? No 06/10/2022 Nutrition Answer Date [...] AM CDT documented as of this encounter Miscellaneous Notes * Telephone Encounter - Angeles Esquivel R.N. - 07/02/2023 10:00 AM CDT Medication Refill Request Prescription for Penicillin V Potassium was last written on 03/18/2022 as # 180, with 0 refill(s). Patient was last seen by Kirsten Ann, Ch.B. on 12/10/2022. Patient does not currently have an upcoming ID appt and no return appt was discussed. This prescription request will be sent for provider review documented in this encounter Plan of Treatment Not on file documented as of this encounter Visit Diagnoses Not on filedocumented in this encounter Care Teams Library Circulation Department Chief Relationship Specialty Start Date End Date Elsewhere, Pcp PCP - General Internal Medicine 03/14/22 documented as of this encounter
--- OUTSIDE RECORDS SUMMARY | 2023-09-23 09:52 | XMS_ITS | Encounter Summary ---
Author Organization [place] Address [address] [place] [address] Care Team Providers Care Foot And Ankle Surgeon Name Role Phone Tiffany Leonard MD Primary Care Provider + [phone] Jr Landeros MD Primary Care Provider + Jr Landeros MD Unavailable [phone] Encounter Details Date Type Department Care Team (Late st Contact Info) Description 04/08/2012 [facility] Medical Advice Initial Department Devon Adam Social History Tobacco Use Types [...] on filedocumented in this encounter Care Teams Foot And Ankle Surgeon Relationship Specialty Start Date End Date Tiffany Leonard MD PCP - General 04/16/01 05/23/21 Jr Landeros MD [address] [place] [address] PCP - General Internal Medicine 05/24/21 Jr Landeros MD [address] [place] [id number] Assigned PCP 05/26/21 documented as of this encounter
--- OUTSIDE RECORDS SUMMARY | 2023-09-23 09:52 | XMS_ITS | Encounter Summary ---
Author Organization [place] Address [address] [place] [address]. [place] [address] Care Team Providers Care Senior Management Consultant Name Role Phone Tiffany Leonard MD Primary Care Provider [phone] Jr Landeros MD Primary Care Provider + Jr Landeros MD Unavailable [phone] Reason for Visit * Reason Onset Date Comments Results 03/14/2011 mri Encounter Details Date Type Department Care Team (Late st Contact Info) Description 03/14/2011 [facility] Medical Advice [facility] [address] [place] [address] [place] [address] [place] [address] Results (mri) Social History Tobacco [...] Varghese - 03/14/2011 11:25 AM CST See boarding pass message below. Advised pt to pick out hand and take to [facility]. Please call when we have received. Message to xray as reminder. Rakel Varghese RN ION SYSTEMS ENGINEER documented in this encounter Plan of Treatment Not on file documented as of this encounter Visit Diagnoses Not on filedocumented in this encounter Care Teams Senior Management Consultant Relationship Specialty Start Date End Date Tiffany Leonard MD PCP - General 04/16/01 05/23/21 Jr Landeros MD [address] [place], [place] [phone] PCP - General Internal Medicine 05/24/21 Jr Landeros MD [address] [place], [place] [phone] Assigned PCP 05/26/21 documented as of this encounter
--- OUTSIDE RECORDS SUMMARY | 2023-09-23 09:52 | XMS_ITS | Encounter Summary ---
Author Organization [facility] Address [address] [place] [address] Care Team Providers Care Solids Control Technician Name Role Phone Tiffany Leonard MD Primary Care Provider [phone] Jr Landeros MD Primary Care Provider + Jr Landeros MD Unavailable [phone] Encounter Details Date Type Department Care Team (Late st Contact Info) Description 10/17/2010 [facility] [address] [address] Devon Adam Social History Tobacco [...] on filedocumented in this encounter Care Teams Solids Control Technician Relationship Specialty Start Date End Date Tiffany Leonard MD PCP - General 04/16/01 05/23/21 Jr Landeros MD [address] [address] PCP - General Internal Medicine 05/24/21 Jr Landeros MD [address] [address] Assigned PCP 05/26/21 documented as of this encounter
--- OUTSIDE RECORDS SUMMARY | 2023-09-23 09:52 | XMS_ITS | Encounter Summary ---
Author Organization [facility] Address [address] [place] [address] Care Team Providers Care Reinforcing Steel Worker Wire Mesh Name Role Phone Tiffany Leonard MD Primary Care Provider [phone] Jr Landeros MD Primary Care Provider + Jr Landeros MD Unavailable [phone] Encounter Details Date Type Department Care Team (Late st Contact Info) Description 02/15/2013 [facility] [address] [address] Devon Adam Social History Tobacco [...] filedocumented in this encounter Care Teams Reinforcing Steel Worker Wire Mesh Relationship Specialty Start Date End Date Tiffany Leonard MD PCP - General 04/16/01 05/23/21 Jr Landeros MD [address] [place] [place] [address] PCP - General Internal Medicine 05/24/21 Jr Landeros MD [address] [address] Assigned PCP 05/26/21 documented as of this encounter
--- OUTSIDE RECORDS SUMMARY | 2023-09-23 09:52 | XMS_ITS | Referral Summary ---
Author Organization [facility] Address [address] [place] [address] Care Team Providers Care Sewage Disposal Engineer Name Role Phone Jr Landeros MD Primary Care Provider + Jr Landeros MD Unavailable [phone] Allergies Active Allergy Reactions Criticality Noted Date Comments Atorvastatin Other (See Comments) 12/10/2015 Facial swelling Latex Hives,Itching 11/13/2005 Bandaids and other contact Lisinopril Cough 12/07/2015 Sulfa Antibiotics Hives 11/13/2005 Medications Medication Sig Dispensed Refills Start Date End Date Status ASPIRIN 81 MG OR TABSIndications:Unspe cified cardiovascular disease,Mixed hyperlipidemia 1 TABLET DAILY Active MUCINEX MAXIMUM STRENGTH 1200 MG OR SK89Omwfsylecxl:Bronc hitis acute 1 TABLET EVERY 12 HOURS NEEDED 28 0 08/10/2007 Active ACCU-CHEK MULTICLIX LANCETS MISCIndications:Type 2 diabetes, HbA1c goal < 7% (H) TEST 1-2 TIMES DAILY 200 Each prn 08/16/2009 Active Blood Glucose Calibration (ACCU-CHEK STEPHEN) SOLNIndications:Type 2 diabetes, HbA1c goal < 7% (H) 1 Bottle by In Vitro route daily as needed. 1 Bottle prn 03/01/2012 Active Blood Glucose Monitoring Suppl (ACCU-CHEK [...] MG tablet Take 70 mg by mouth 10/11/2019 Active cevimeline (EVOXAC) 30 MG capsule 04/10/2020 Active cholecalciferol 25 MCG (1000 UT) TABS Take 1 tablet by mouth daily 10/11/2019 Active gabapentin (NEURONTIN) 600 MG tabletIndications:Monica n of right upper arm 600 mg by mouth twice per day. 180 tablet 3 06/03/2021 Active Active Problems Problem Noted Date Diagnosed Date Status post insertion of harley g-eluting stent into left anterior descending (LAD) artery for coronary artery disease 05/24/2021 Sjogren's syndrome (H24) 04/06/2019 Type 2 diabetes, HbA1c goal < 7% [...] and radiation; Tamoxifen, now Arimedex; followed at [facility] Cardiovascular disease Overview: PTCA- age 42 Problem list name updated by automated process. Provider to review Osteoporosis Overview: Fosamax Problem list name updated by automated process. Provider to review Resolved Problems Problem Noted Date Diagnosed Date Resolved Date Advanced directives, counseling/discussion 10/22/2010 08/17/2023 Overview: Advance Directive Problem List Overview: Name Relationship Phone Primary Health Care Agent Alternative Health Care Agent Patient states has Advance Directive and will bring in a copy to clinic. 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 Hyperlipidemia LDL goal <100 COMPREHENSIVE METABOLIC PANEL Routine 04/12/2012 8:45 AM APRON MAN Type 2 diabetes, HbA1C goal < 7% (H) 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 Hyperlipidemia LDL goal <100 HEMOGLOBIN A1C Routine 04/12/2012 8:45 AM APRON MAN Type 2 diabetes, HbA1C goal < 7% (H) 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 UA MACROSCOPIC WITH REFLEX TO MICROSCOPIC AND CULTURE Routine 12/31/2011 9:30 AM CDT Dysuria MA SCREENING DIGITAL LEFT Routine 12/15/2011 9:54 AM CDT C FOOT EXAM Routine 07/14/2011 11:57 AM CDT Type 2 diabetes, HbA1C goal < 7% (H) HC DEXA BONE DENSITY, >=1 SITE, AXIAL SKELETON Routine 07/05/2008 DIAGNOSIS NOT YET DEFINED ZZHC COLONOSCOPY THRU STOMA, DIAGNOSTIC Routine 08/22/2002 DIAGNOSIS NOT YET DEFINED from Last 3 Months or Most Recently Relevant to Health Maintenance Results * DIABETIC (DILATED) EYE EXAM (10/18/2012) Provider Abstract PROCEDURES * Microalbumin quantitative random urine (04/12/2012 8:46 AM APRON MAN) Creatinine Urine 106 mg/dL [facility] Albumin Urine mg/L 20 mg/L [facility] Albumin Urine mg/g Cr 18.87 0 - 25 mg/g Cr [facility] Urine specimen (specimen) 04/12/2012 8:46 AM APRON MAN 04/12/2012 8:47 AM APRON MAN Tiffany Leonard MD LAB - URINE ORDER HIRAM [facility] * (ABNORMAL) Lipid panel reflex to direct LDL (04/12/2012 8:45 AM APRON MAN) Cholesterol 165 0 - 200 mg/dL [facility] Comment: LDL Cholesterol is the primary guide to therapy. The NCEP recommends further evaluation of: patients with cholesterol greater than 200 mg/dL if additional risk factors are present, cholesterol greater than 240 mg/dL, triglycerides greater than 150 mg/dL, or HDL less than 40 mg/dL. Triglycerides 253(H) 0 - 150 mg/dL [facility] HDL Cholesterol 36(L) 50 - 110 mg/dL [facility] LDL Cholesterol Calculated 79 0 - 129 mg/dL [facility] Comment: LDL Cholesterol is the primary guide to therapy: LDL-cholesterol goal in high risk patients is <100 mg/dL and in very high risk patients is <70 mg/dL. VLDL-Cholesterol 51(H) 0 - 30 mg/dL [facility] Cholesterol/HDL Ratio 4.6 0.0 - 5.0 [facility] Blood specimen (specimen) 04/12/2012 8:45 AM APRON MAN 04/12/2012 8:46 AM APRON MAN Tiffany Leonard MD LAB - BLOOD ORDER HIRAM Performing Organization Address City/[facility]/ZIP Co de Phone Number [facility] [address] [place] [address] * Hemoglobin A1c (04/12/2012 8:45 AM APRON MAN) Hemoglobin A1C 5.7 4.3 - 6.0 % [facility] Blood specimen (specimen) 04/12/2012 8:45 AM APRON MAN 04/12/2012 8:46 AM APRON MAN Tiffany Leonard MD LAB - BLOOD ORDER HIRAM Performing Organization Address [facility]/ZIP Co de Phone Number [facility] [address] [place] [address] * (ABNORMAL) Comprehensive metabolic panel (04/12/2012 8:45 AM APRON MAN) Sodium 139 133 - 144 mmol/L [facility] Potassium 3.9 3.4 - 5.3 mmol/L [facility] Chloride 100 94 - 109 mmol/L [facility] Carbon Dioxide 26 20 - 32 mmol/L [facility] Anion Gap 14 6 - 17 mmol/L [facility] Glucose 104(H) 60 - 99 mg/dL [facility] Urea Nitrogen 17 7 - 30 mg/dL [facility] Creatinine 0.61 0.52 - 1.04 mg/dL [facility] GFR Estimate >90 >60 mL/min/1.7 m2 [facility] GFR Estimate If Black >90 >60 mL/min/1.7 m2 [facility] Calcium 9.6 8.5 - 10.4 mg/dL [facility] Bilirubin Total 0.5 0.2 - 1.3 mg/dL [facility] Albumin 4.1 3.3 - 4.9 g/dL [facility] Comment:Reference range woodward ged on 11/23/2007. Protein Total 7.4 6.8 - 8.8 g/dL [facility] Comment:As of 07, refer ence range reflects plasma specimen type. Alkaline Phosphatase 71 40 - 150 U/L [facility] ALT 18 0 - 50 U/L [facility] AST 19 0 - 45 U/L [facility] Blood specimen (specimen) 04/12/2012 8:45 AM APRON MAN 04/12/2012 8:46 AM APRON MAN Tiffany Leonard MD LAB - BLOOD ORDER HIRAM [facility] [address] [place], [place] [id number] * (ABNORMAL) *UA reflex to Microscopic and Culture (12/31/2011 9:30 AM CDT) Color Urine Yellow [facility] Appearance Urine Clear [facility] Glucose Urine Negative NEG mg/dL [facility] Bilirubin Urine Negative NEG [facility] Ketones Urine Negative NEG mg/dL [facility] Specific [place] Urine 1.025 1.003 - 1.035 [facility] Blood Urine Moderate(A) NEG [facility] pH Urine 5.0 5.0 - 7.0 pH [facility] Protein Albumin Urine Trace(A) NEG mg/dL [facility] Urobilinogen Urine 0.2 0.2 - 1.0 EU/dL [facility] Nitrite Urine Negative NEG [facility] Leukocyte Esterase Urine Trace(A) NEG [facility] Source Midstream Urine [facility] Urine specimen (specimen) 12/31/2011 9:30 AM CDT 12/31/2011 9:31 AM CDT Tiffany Leonard MD LAB - URINE ORDER HIRAM [facility] * Mammo Screening digital left* (12/15/2011 9:54 AM CDT) Anatomical Region Laterality Modality Breast Left Other 12/15/2011 9:54 AM CDT Impressions 12/15/2011 10:11 AM CDT SCREENING MAMMOGRAM, LEFT, DIGITAL w/CAD - 12/15/2011 9:54 AM BREAST SYMPTOMS: No current breast complaints. COMPARISON: ??11/05/2010, 07/21/2007 PARENCHYMAL PATTERN: Scattered fibroglandular densities. COMMENTS: No findings of suspicion for malignancy. ?? The patient has had a prior right mastectomy. IMPRESSION: BIRADS 1, NEGATIVE. RECOMMENDATION: Recommend annual screening mammography. Exam results letter mailed to patient. Tiffany Leonard MD IMG MAMMOGRAPHY O RDERABLES * DEXA,BONE DENSITY,AXIAL SKELETON (07/05/2008) Anatomical Region Laterality Modality Other Tiffany Leonard MD SPECIAL IMAGING S TUDIES * COLONOSCOPY (08/22/2002) 08/22/2002 Tiffany Leonard MD PROCEDURES from Last 3 Months or Most Recently Relevant to Health Maintenance Care Teams Sewage Disposal Engineer Relationship Specialty Start Date End Date Jr Landeros MD [address] [place] [address] PCP - General Internal Medicine 05/24/21 Jr Landeros MD [address] [place] [address] Assigned PCP 05/26/21
--- OUTSIDE RECORDS SUMMARY | 2023-09-23 09:52 | XMS_ITS | Encounter Summary ---
Author Organization [facility] Address [address] [place] [address]. [place] [address] Care Team Providers Care Ballistician Name Role Phone Tiffany Leonard MD Primary Care Provider [phone] Jr Landeros MD Primary Care Provider + Jr Landeros MD Unavailable [phone] Reason for Visit * Reason Onset Date Comments Refill Request 08/26/2010 Encounter Details Date Type Department Care Team (Late st Contact Info) Description 08/26/2010 MyC Refill [facility] [address] [place] [address] [place] [address] [place] [address] Refill Request Social History Tobacco [...] on filedocumented in this encounter Care Teams Ballistician Relationship Specialty Start Date End Date Tiffany Leonard MD PCP - General 04/16/01 05/23/21 Jr Landeros MD [address] [place] [address] PCP - General Internal Medicine 05/24/21 Jr Landeros MD [address] [place] [address] Assigned PCP 05/26/21 documented as of this encounter
--- OUTSIDE RECORDS SUMMARY | 2023-09-23 09:52 | XMS_ITS | Clinical Summary ---
Author Organization [facility] Address [address] [place] [address] Care Team Providers Care Cell Biology Scientist Name Role Phone Jr Landeros MD Primary Care Provider + Jr Landeros MD Unavailable [phone] Allergies Active Allergy Reactions Criticality Noted Date Comments Atorvastatin Other (See Comments) 12/10/2015 Facial swelling Latex Hives,Itching 11/13/2005 Bandaids and other contact Lisinopril Cough 12/07/2015 Sulfa Antibiotics Hives 11/13/2005 Medications Medication Sig Dispensed Refills Start Date End Date Status ASPIRIN 81 MG OR TABSIndications:Unspe cified cardiovascular disease,Mixed hyperlipidemia 1 TABLET DAILY Active MUCINEX MAXIMUM STRENGTH 1200 MG OR HI57Aeborovsbrw:Bronc hitis acute 1 TABLET EVERY 12 HOURS [...] and radiation; Tamoxifen, now Arimedex; followed at [facility] Cardiovascular disease Overview: PTCA- age 42 Problem [...] 10/18/2013 10/18/2012, 08/19/2010 [facility] C[facility] PLANNING 10/23/2015 10/22/2010, 011 ANNUAL REVIEW OF HM ORDERS 05/24/2022 05/24/2021 COVID-19 Vaccine ( season) 2022 11/30/2020, 05/11/2020, 04/13/2020 PHQ-2 (once per calendar year) 2023 DEXA 07/06/2023 07/05/2008, 02/04/2006 INFLUENZA VACCINE (#1) 2023 , 12/15/2019, 12/24/2018, Additional history exists DTAP/TDAP/TD IMMUNIZATION (4 - Td or Tdap) [...] on patient's age to complete this topic Procedures Procedure Name Priority Date/Time Associated Diagnosis Comments DIABETIC (DILATED) EYE EXAM Routine 10/18/2012 ALBUMIN RANDOM URINE QUANTITATIVE Routine 04/12/2012 8:46 AM OIL BOILER Type 2 diabetes, HbA1C goal < 7% (H) 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 LIPID REFLEX TO DIRECT LDL PANEL Routine 04/12/2012 8:45 AM OIL BOILER Type 2 diabetes, HbA1C goal < 7% (H) 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 Hyperlipidemia LDL goal <100 COMPREHENSIVE METABOLIC PANEL Routine 04/12/2012 8:45 AM OIL BOILER Type 2 diabetes, HbA1C goal < 7% (H) 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 Hyperlipidemia LDL goal <100 HEMOGLOBIN A1C Routine 04/12/2012 8:45 AM OIL BOILER Type 2 diabetes, HbA1C goal < 7% [...] Microalbumin quantitative random urine (04/12/2012 8:46 AM OIL BOILER) Creatinine Urine 106 mg/dL [facility] Albumin Urine mg/L 20 mg/L [facility] Albumin Urine mg/g Cr 18.87 0 - 25 mg/g Cr [facility] Urine specimen (specimen) 04/12/2012 8:46 AM OIL BOILER 04/12/2012 8:47 AM OIL BOILER Tiffany Leonard MD LAB - URINE ORDER HIRAM [facility] * (ABNORMAL) Lipid panel reflex to direct LDL (04/12/2012 8:45 AM OIL BOILER) Cholesterol 165 0 - 200 mg/dL [facility] Comment: LDL Cholesterol is the primary guide to therapy. The NCEP recommends further evaluation of: patients with cholesterol greater than 200 mg/dL if additional risk factors are present, cholesterol greater than 240 mg/dL, triglycerides greater than 150 mg/dL, or HDL less than 40 mg/dL. Triglycerides 253(H) 0 - 150 mg/dL [facility] HDL Cholesterol 36(L) 50 - 110 mg/dL [facility] LDL Cholesterol Calculated 79 0 - 129 mg/dL [facility] Comment: LDL Cholesterol is the primary guide to therapy: LDL-cholesterol goal in high risk patients is <100 mg/dL and in very high risk patients is <70 mg/dL. VLDL-Cholesterol 51(H) 0 - 30 mg/dL [facility] Cholesterol/HDL Ratio 4.6 0.0 - 5.0 [facility] Blood specimen (specimen) 04/12/2012 8:45 AM OIL BOILER 04/12/2012 8:46 AM OIL BOILER Tiffany Leonard MD LAB - BLOOD ORDER HIRAM [facility] [address] [place] [address] * Hemoglobin A1c (04/12/2012 8:45 AM OIL BOILER) Hemoglobin A1C 5.7 4.3 - 6.0 % [facility] Blood specimen (specimen) 04/12/2012 8:45 AM OIL BOILER 04/12/2012 8:46 AM OIL BOILER Tiffany Leonard MD LAB - BLOOD ORDER HIRAM [facility] [address] [place] [address] * (ABNORMAL) Comprehensive metabolic panel (04/12/2012 8:45 AM OIL BOILER) Pathologist [facility] Sodium 139 133 - 144 mmol/L [facility] Potassium 3.9 3.4 - 5.3 mmol/L [facility] Chloride 100 94 - 109 mmol/L [facility] Carbon Dioxide 26 20 - 32 mmol/L [facility] Anion Gap 14 6 - 17 mmol/L [facility] Glucose 104(H) 60 - 99 mg/dL [facility] Urea Nitrogen 17 7 - 30 mg/dL [facility] Creatinine 0.61 0.52 - 1.04 mg/dL [facility] GFR Estimate >90 >60 mL/min/1.7 m2 [facility] GFR Estimate If Black >90 >60 mL/min/1.7 m2 [facility] Calcium 9.6 8.5 - 10.4 mg/dL [facility] Bilirubin Total 0.5 0.2 - 1.3 mg/dL [facility] Albumin 4.1 3.3 - 4.9 g/dL [facility] Comment:Reference range woodward ged on 11/23/2007. Protein Total 7.4 6.8 - 8.8 g/dL [facility] Comment:As of 07, refer ence range reflects plasma specimen type. Alkaline Phosphatase 71 40 - 150 U/L [facility] ALT 18 0 - 50 U/L [facility] AST 19 0 - 45 U/L [facility] Blood specimen (specimen) 04/12/2012 8:45 AM OIL BOILER 04/12/2012 8:46 AM OIL BOILER Tiffany Leonard MD LAB - BLOOD ORDER HIRAM Performing Organization Address [facility]/ZIP Co de Phone Number [facility] [address] [place] [address] * (ABNORMAL) *UA reflex to Microscopic and Culture (12/31/2011 9:30 AM CDT) Color Urine Yellow [facility] Appearance Urine Clear [facility]BA [facility] Glucose Urine Negative NEG mg/dL [facility] Bilirubin Urine Negative NEG [facility] Ketones Urine Negative NEG mg/dL [facility] Specific [place] Urine 1.025 1.003 - 1.035 [facility] Blood Urine Moderate(A) NEG [facility] pH Urine 5.0 5.0 - 7.0 pH [facility] Protein Albumin Urine Trace(A) NEG mg/dL [facility] Urobilinogen Urine 0.2 0.2 - 1.0 EU/dL [facility] Nitrite Urine Negative NEG [facility] Leukocyte Esterase Urine Trace(A) NEG [facility] Source Midstream Urine [facility] Urine specimen (specimen) 12/31/2011 9:30 AM CDT 12/31/2011 9:31 AM CDT Tiffany Leonard MD LAB - URINE ORDER HIRAM Performing Organization Address City/[facility]/ZIP Co de Phone Number [facility] * Mammo Screening digital left* [...] Recently Relevant to Health Maintenance Care Teams Cell Biology Scientist Relationship Specialty Start Date End Date Jr Landeros MD [address] [place] [address] PCP - General Internal Medicine 05/24/21 Jr Landeros MD [address] [place] [address] Assigned PCP 05/26/21
--- OUTSIDE RECORDS SUMMARY | 2023-09-23 09:52 | XMS_ITS | Encounter Summary ---
Author Organization [facility] Address [address] [place] [address] Care Team Providers Care Geriatric Nurse Assistant Name Role Phone Tiffany Leonard MD Primary Care Provider [phone] Jr Landeros MD Primary Care Provider + Jr Landeros MD Unavailable [phone] Encounter Details Date Type Department Care Team (Late st Contact Info) Description 04/25/2011 MyC Medical Advice Initial Department Devon Adam [...] on filedocumented in this encounter Care Teams Geriatric Nurse Assistant Relationship Specialty Start Date End Date Tiffany Leonard MD PCP - General 04/16/01 05/23/21 Jr Landeros MD [address], [place] [address] PCP - General Internal Medicine 05/24/21 Jr Landeros MD [address] [place] [address] Assigned PCP 05/26/21 documented as of this encounter
--- NOTE | 2023-09-23 10:15 | CRLHL7_ITS ---
For Patients: As a result of the Century Cures Act, medical imaging exams and procedure reports are released immediately into your electronic medical record. You may view this report before your referring provider. If you have questions, please contact your health care provider. LEFT SCREENING MAMMOGRAM WITH COMPUTER-AIDED DETECTION AND TOMOSYNTHESIS TECHNIQUE: CC and MLO views were obtained. These mammographic images have been obtained using full-field digital technique. These mammographic images were interpreted with the benefit of computer-aided detection. Breast tomosynthesis was used in this interpretation. COMPARISON FILM: 06/23/22, 06/10/21, 05/21/20. FINDINGS: There are scattered areas of fibroglandular density. IMPRESSION: There is no radiographic evidence for malignancy. ASSESSMENT: BI-RADS Category 2: Benign RECOMMENDATION: Routine screening mammogram in 1 year. A lay language report of this examination will be provided to the patient. WERO DESIR M.D. Diagnostic Radiologist [email or web address] Transcribed: 2:[address]/Dictated by: Wero Desir MD @ 09/23/2023 10:29:00 AM (Electronically Signed)
== END 2023-09-23 09:49 | disposition home or self-care (01) ==
LOC: MAMMO 09:49
PROVIDERS: PCP Internal Medicine; Visit Provider Internal Medicine
DX: Z12.31 Encounter for screening mammogram for malignant neoplasm of breast (principal)
CPT/HCPCS: 77063; 77067

== ENCOUNTER 2024-01-25 08:10 | Outpatient (CLI) | payer MEDICARE, OTHER, SELFPAY ==
--- OUTSIDE RECORDS SUMMARY | 2024-01-27 11:42 | XMS_ITS | Continuity of Care Document ---
Author Hub Preferred Language en Marital Status Unknown Congregation Affiliation Unknown Race Unknown Ethnic Group Not or Lati no Author Organization [facility] Address [address] [place] [address] Phone Care Team Providers Care Mechanical Meter Tester Name Role Phone Stweart Chris DO Unavailable Unavailable Allergies, Adverse Reactions, [...] [facility], [address], [place], [address], [place] tel:[phone] [facility], Dry mouth (chief complaint) Dry mouthOther fatigue 5 Aries Willaim. [facility] [address], [place], [address], [place]. tel:[phone] Referring Provider: Stewart Houston, [facility] [address], [place], [address]. tel:[phone] Office/Outpa tient Visit, New [facility], [address], [place], [address], [place] tel:[phone] [facility], Dry Mouth (chief complaint) Dry mouthOther fatigue 5 Aries William. [facility] [address], [place], [address], [place]. tel:[phone] Referring Provider: Stewart Houston, [facility] [address], [place], [place], [facility]. tel:[phone] Family History Family Member Type Diagnosis Age At Onset Brother Problem (finding) colitis Payers Payer name Insurance type Covered constitution party ID Authoriza tion(s) Medicare [place] [id number] [employer] [id number] Social History Type Description Quantity Date Captured [...] Mental Status Date Cognitive Assessment Orientation - Lynn ed to time, place, person, situation. Patient Care Teams Name Effective Dates (start - stop) Status Members No Information
--- OUTSIDE RECORDS SUMMARY | 2024-01-27 11:43 | XMS_ITS | Encounter Summary ---
Author Organization [facility] Address [address] [place] [address] Care Team Providers Care Manager Logistic Name Role Phone Tiffany Leonard MD Primary Care Provider + [phone] Jr Landeros MD Primary Care Provider + Jr Landeros MD Unavailable [phone] Encounter Details Date Type Department Care Team (Late st Contact Info) Description 10/17/2010 [facility] [address] [address] Devon Adam Social History Tobacco Use Types Packs/Day Years Used Date Smoking Tobacco: Former Cigarettes Q uit: 05/14/1988 Alcohol Use Standard Drinks/Week Comments No 0 (1 standard drink = 0.6 oz pur e alcohol) Comments No Sex and Gender Information Value Date Recorded Sex Assigned at Female 05/22/2021 3:03 PM CDT 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
--- OUTSIDE RECORDS SUMMARY | 2024-01-27 11:43 | XMS_ITS | Referral Summary ---
Author Organization [facility] Address [address] [place] [address] Care Team Providers Care Rheostat Assembler Name Role Phone Jr Landeros MD Primary Care Provider + Jr Landeros MD Unavailable [phone] Allergies Active Allergy Reactions Criticality Noted Date Comments Atorvastatin Other (See Comments) 12/10/2015 Facial swelling Latex Hives,Itching 11/13/2005 Bandaids and other contact Lisinopril Cough 12/07/2015 Sulfa Antibiotics Hives 11/13/2005 Medications ASPIRIN 81 MG OR TABSIndications:Uns pecified cardiovascular disease,Mixed hyperlipidemia 1 TABLET DAILY Active MUCINEX MAXIMUM STRENGTH 1200 MG OR [id number]:Bro nchitis acute 1 TABLET EVERY 12 HOURS NEEDED 28 0 8 Active ACCU-CHEK MULTICLIX LANCETS MISCIndications:Typ e 2 diabetes, HbA1c goal < 7% (H) TEST 1-2 TIMES DAILY 200 Each prn 0 Active Blood Glucose Calibration (ACCU-CHEK STEPHEN) SOLNIndications:Typ e 2 diabetes, HbA1c goal < 7% (H) 1 Bottle by In Vitro route daily as needed. 1 Bottle prn 2 Active Blood Glucose Monitoring Suppl (ACCU-CHEK STEPHEN PLUS) W/DEVICE KITIndications:Type 2 diabetes, HbA1c goal < 7% (H) Use to test blood sugars once daily as directed. 1 kit 0 3 Active Glucose Blood (ACCU-CHEK STEPHEN) STRPIndications:Typ e 2 diabetes, HbA1c goal < 7% (H) 1 strip by In Vitro route daily as needed. 100 strip 3 3 Active LANsoprazole (PREVACID) 15 MG capsuleIndications: Gastritis Take 2 capsules by mouth daily. 180 capsule 1 3 Active losartan (COZAAR) 25 MG tabletIndications:T ype 2 diabetes mellitus with proteinuria or microalbuminuria,Un specified cardiovascular disease Take 1 tablet (25 mg) by mouth daily 90 tablet 0 3 Active atenolol (TENORMIN) 25 MG tabletIndications:U nspecified cardiovascular disease Take 1 tablet (25 mg) by mouth 2 times daily 180 tablet 0 3 Active metFORMIN (GLUCOPHAGE-XR) 500 MG 24 hr tabletIndications:T ype 2 diabetes, HbA1c goal < 7% (H) Take 2 tablets by mouth. Two DAILY WITH MEAL 180 tablet 0 3 Active pravastatin (PRAVACHOL) 40 MG tabletIndications:H yperlipidemia LDL goal <100 Take 1 tablet (40 mg) by mouth daily 90 tablet 0 3 Active alendronate (FOSAMAX) 70 MG tablet Take 70 mg by mouth 0 Active cevimeline (EVOXAC) 30 MG capsule 1 Active cholecalciferol 25 MCG (1000 UT) TABS Take 1 tablet by mouth daily 0 Active gabapentin (NEURONTIN) 600 MG tabletIndications:P ain of right upper arm 600 mg by mouth twice per day. 180 tablet 3 2 Active Active Problems Problem Noted Date Diagnosed Date Status post insertion of harley g-eluting stent into left anterior descending (LAD) artery for coronary artery disease 05/24/2021 Sjogren's syndrome 04/06/2019 Type 2 diabetes, HbA1c goal < 7% 06/07/2009 Overview (06/17/2009): BP 126/76 06/17/2009 GLC 145 06/05/2009 A1C 7.9 06/05/2009 LDL 94 06/05/2009 MICROL 67 06/05/2009 MICROALBUMIN 41.10 06/05/2009 HYPERLIPIDEMIA LDL GOAL <100 04/11/2009 Hereditary and idiopathic peripheral neuropathy 04/15/2006 Overview (11/30/2014): Chemotherapy related ; breast cancer 1997 and 2001- more so after second round Problem list name updated by automated process. 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 Hypertensive kidney disease, stage 1 08/23/2002 Personal history of malignant neoplasm of breast Overview (11/13/2005): Mastectomy and chemotherapy; Recurrence 2001; Chemo and radiation; Tamoxifen, now Arimedex; followed at [facility] Cardiovascular disease Overview (11/30/2014): PTCA- age 42 Problem list name updated by automated process. Provider to review Osteoporosis Overview (11/30/2014): Fosamax Problem list name updated by automated process. Provider to review Resolved Problems Problem Noted Date Diagnosed Date Resolved Date Advanced directives, counseling/discussion 10/22/2010 08/17/2023 Overview (10/22/2010): Advance Directive Problem List Overview: Name Relationship Phone Primary Health Care Agent Alternative Health Care Agent Patient states has Advance Directive and will bring in a copy to clinic. 10/22/2010 Type 2 diabetes, HbA1C goal < 8% 12/30/2009 12/31/2009 Mixed hyperlipidemia 010 Overview (11/13/2005): Statin; Pravachol; Low HDL Immunizations Name Administration Dates Next Due Influenza (H1N1) 03/12/2009 Influenza (High Dose) Trival ent,PF (Fluzone) 12/10/2017,12/23/2016,12/17/2015,2013,12/08/2013,12/20/2012 Influenza (IIV3) PF 11/10/2011, 1,12/14/2009,2007,12/31/2006,12/18/2005,11/30/2005 Influenza [...] School Help Needed Not on file 12/07 Comments No Sex and Gender Information Value Date Recorded Sex Assigned at Female 05/22/2021 3:03 PM CDT Legal Sex Female 3:11 AM AUTOMATION QA ANALYST Gender Identity Female 05/22/2021 3:03 PM CDT Sexual Orientation Straight 05/22/2021 3: 03 PM CDT Last Filed Vital Signs Vital Sign Reading Time Taken Comments Blood Pressure 166/90 08/01/2021 12:01 PM CDT Pulse 66 08/01/2021 12:00 PM CDT Temperature 37.2 C (99 F) 08/01/2021 12:00 PM CDT Respiratory Rate 18 [...] RANDOM URINE QUANTITATIVE Routine 04/12/2012 8:46 AM AUTOMATION QA ANALYST Type 2 diabetes, HbA1C goal < 7% (H) 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 LIPID REFLEX TO DIRECT LDL PANEL Routine 04/12/2012 8:45 AM AUTOMATION QA ANALYST Type 2 diabetes, HbA1C goal < 7% (H) 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 Hyperlipidemia LDL goal <100 COMPREHENSIVE METABOLIC PANEL Routine 04/12/2012 8:45 AM AUTOMATION QA ANALYST Type 2 diabetes, HbA1C goal < 7% (H) 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 Hyperlipidemia LDL goal <100 HEMOGLOBIN A1C Routine 04/12/2012 8:45 AM AUTOMATION QA ANALYST Type 2 diabetes, HbA1C goal < 7% (H) 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 UA MACROSCOPIC WITH REFLEX TO MICROSCOPIC AND CULTURE Routine 12/31/2011 9:30 AM CDT Dysuria TSH WITH FREE T4 REFLEX Routine 12/31/2011 9:30 AM CDT Type 2 diabetes, HbA1C goal < 7% (H) MA SCREENING DIGITAL LEFT Routine 12/15/2011 9:54 [...] Results * DIABETIC (DILATED) EYE EXAM (10/18/2012) us Provider Abstract PROCEDURES Final Result * Microalbumin quantitative random urine (04/12/2012 8:46 AM AUTOMATION QA ANALYST) Creatinine Urine 106 mg/dL [facility] Albumin Urine mg/L 20 mg/L [facility] Albumin Urine mg/g Cr 18.87 0 - 25 mg/g Cr [facility] Urine specimen (specimen) 04/12/2012 8:46 AM AUTOMATION QA ANALYST 04/12/2012 8:47 AM AUTOMATION QA ANALYST us Tiffany Leonard MD LAB - URINE ORDERABLES Fi nal Result [address] [address] * (ABNORMAL) Lipid panel reflex to direct LDL (04/12/2012 8:45 AM AUTOMATION QA ANALYST) Cholesterol 165 0 - 200 mg/dL [facility] Comment: LDL Cholesterol is the primary guide to therapy. The NCEP recommends further evaluation of: patients with cholesterol greater than 200 mg/dL if additional risk factors are present, cholesterol greater than 240 mg/dL, triglycerides greater than 150 mg/dL, or HDL less than 40 mg/dL. Triglycerides 253(H) 0 - 150 mg/dL [facility] HDL Cholesterol 36(L) 50 - 110 mg/dL [facility] LDL Cholesterol Calculated 79 0 - 129 mg/dL [facility] Comment: LDL Cholesterol is the primary guide to therapy: LDL-cholesterol goal in high risk patients is <100 mg/dL and in very high risk patients is <70 mg/dL. VLDL-Cholesterol 51(H) 0 - 30 mg/dL [facility] Cholesterol/HDL Ratio 4.6 0.0 - 5.0 [facility] Blood specimen (specimen) 04/12/2012 8:45 AM AUTOMATION QA ANALYST 04/12/2012 8:46 AM AUTOMATION QA ANALYST us Tiffany Leonard MD LAB - BLOOD ORDERABLES Fi nal Result Performing Organization Address City/[facility]/ZIP Co de Phone Number [facility] [address] [place], [place] [id number] * Hemoglobin A1c (04/12/2012 8:45 AM AUTOMATION QA ANALYST) Hemoglobin A1C 5.7 4.3 - 6.0 % [facility] Blood specimen (specimen) 04/12/2012 8:45 AM AUTOMATION QA ANALYST 04/12/2012 8:46 AM AUTOMATION QA ANALYST Tiffany Leonard MD LAB - BLOOD ORDERABLES Fi nal Result Performing Organization Address City/[facility]/ZIP Co de Phone Number [facility] [address] [place] [address] * (ABNORMAL) Comprehensive metabolic panel (04/12/2012 8:45 AM AUTOMATION QA ANALYST) Sodium 139 133 - 144 mmol/L [facility] Potassium 3.9 3.4 - 5.3 mmol/L [facility] Chloride 100 94 - 109 mmol/L [facility] Carbon Dioxide 26 20 - 32 mmol/L [facility] Anion Gap 14 6 - 17 mmol/L [facility] Glucose 104(H) 60 - 99 mg/dL [facility] Urea Nitrogen 17 7 - 30 mg/dL [facility] Creatinine 0.61 0.52 - 1.04 mg/dL [facility] GFR Estimate >90 >60 mL/min/1.7 m2 [facility] GFR Estimate If Black >90 >60 mL/min/1.7 m2 [facility] Calcium 9.6 8.5 - 10.4 mg/dL [facility] Bilirubin Total 0.5 0.2 - 1.3 mg/dL [facility] Albumin 4.1 3.3 - 4.9 g/dL [facility] Comment:Reference range [facility] on 11/23/2007. Protein Total 7.4 6.8 - 8.8 g/dL [facility] Comment:As of 07, refer ence range reflects plasma specimen type. Alkaline Phosphatase 71 40 - 150 U/L [facility] ALT 18 0 - 50 U/L [facility] AST 19 0 - 45 U/L [facility] Blood specimen (specimen) 04/12/2012 8:45 AM AUTOMATION QA ANALYST 04/12/2012 8:46 AM AUTOMATION QA ANALYST us Tiffany Leonard MD LAB - BLOOD ORDERABLES Fi nal Result Performing Organization Address City/[facility]/ZIP Co de Phone Number [facility] [address] [place] [address] * (ABNORMAL) *UA reflex to Microscopic and Culture (12/31/2011 9:30 AM CDT) Color Urine Yellow [facility] Appearance Urine Clear [facility] Glucose Urine Negative NEG mg/dL [facility] Bilirubin Urine Negative NEG [facility] Ketones Urine Negative NEG mg/dL [facility] Specific Leona Urine 1.025 1.003 - 1.035 [facility] Blood Urine Moderate(A) NEG [facility] pH Urine 5.0 5.0 - 7.[address] [facility] Protein Albumin Urine Trace(A) NEG mg/dL [facility] Urobilinogen Urine 0.2 0.2 - 1.0 EU/dL [facility] Nitrite Urine Negative NEG [facility] Leukocyte Esterase Urine Trace(A) NEG [facility] Source Midstream Urine [facility] Urine specimen (specimen) 12/31/2011 9:30 AM CDT 12/31/2011 9:31 AM CDT us Tiffany Leonrad MD LAB - URINE ORDERABLES Fi nal Result [facility] [address] [place] [address] * TSH with free T4 reflex (12/31/2011 9:30 AM CDT) TSH 1.96 0.4 - 5.0 mU/L [facility] Blood specimen (specimen) 12/31/2011 9:30 AM CDT 12/31/2011 9:31 AM CDT us Tiffany Leonard MD LAB - BLOOD ORDERABLES Fi nal Result [facility] [address] [place] [address] * Mammo Screening digital left* (12/15/2011 9:54 AM CDT) Anatomical Region Laterality Modality Breast Left Other 12/15/2011 9:54 AM CDT Impressions 12/15/2011 10:11 AM CDT SCREENING MAMMOGRAM, LEFT, DIGITAL w/CAD - 12/15/2011 9:54 AM BREAST SYMPTOMS: No current breast complaints. COMPARISON: 11/05/2010, 07/21/2007 PARENCHYMAL PATTERN: Scattered fibroglandular densities. COMMENTS: No findings of suspicion for malignancy. The patient has had a prior right mastectomy. IMPRESSION: BIRADS 1, NEGATIVE. RECOMMENDATION: Recommend annual screening mammography. Exam results letter mailed to patient. us Tiffany Leonard MD IMG MAMMOGRAPHY ORDERABLE S Edited * DEXA,BONE DENSITY,AXIAL SKELETON (07/05/2008) Anatomical Region Laterality Modality Other Tiffany Leonard MD SPECIAL IMAGING STUDIES F inal Result * COLONOSCOPY (08/22/2002) 08/22/2002 Tiffany Leonard MD PROCEDURES Final Res ult from Last 3 Months or Most Recently Relevant to Health Maintenance Insurance / MEDICARE Care Teams Rheostat Assembler Relationship Specialty Start Date End Date Jr Landeros MD [address] [place] [address] PCP - General Internal Medicine 05/24/21 Jr Landeros MD [address] [place] [address] Assigned PCP 05/26/21
--- OUTSIDE RECORDS SUMMARY | 2024-01-27 11:43 | XMS_ITS | Clinical Summary ---
Author Organization [facility] Address [address] [place] [address] Care Team Providers Care Dog Day Care Attendant Name Role Phone Jr Landeros MD Primary Care Provider + Jr Landeros MD Unavailable [phone] Allergies Active Allergy Reactions Criticality Noted Date Comments Atorvastatin Other (See Comments) 12/10/2015 Facial swelling Latex Hives,Itching 11/13/2005 Bandaids and other contact Lisinopril Cough 12/07/2015 Sulfa Antibiotics Hives 11/13/2005 Medications ASPIRIN 81 MG OR TABSIndications:Uns pecified cardiovascular disease,Mixed hyperlipidemia 1 TABLET DAILY Active MUCINEX MAXIMUM STRENGTH 1200 MG OR [id number]:Bro nchitis acute 1 TABLET EVERY 12 HOURS [...] and radiation; Tamoxifen, now Arimedex; followed at [facility] Cardiovascular disease Overview (11/30/2014): PTCA- age 42 [...] 04/08/2011,05/24/2008 Family History Medical History Relation Comments C.A.D. Brother Heart Disease Brother from a hear t attack C.A.D. Father Hypertension Father Cancer Maternal Grandfather unknown [...] PM CDT Legal Sex Female 3:11 AM FUN HOUSE ATTENDANT Gender Identity Female 05/22/2021 3:03 PM CDT [...] C SCREENING 09/29/1963 LUNG CANCER SCREENING 09/29/1995 MEDICARE ANNUAL WELLNESS VISIT 10/23/2011 10/22/2010, 06/05/2009, [...] 08/19/2010 ADVANCE CARE PLANNING 10/23/2015 10/22/2010, 011 RSV VACCINE (1 - 1-dose 75+ series) 2020 ANNUAL REVIEW OF HM ORDERS 05/24/2022 05/24/2021 PHQ-2 (once per calendar year) 2023 DEXA 07/06/2023 07/05/2008, 02/04/2006 COVID-19 Vaccine ( - 2023- season) 2023 11/30/2020, 05/11/2020, 04/13/2020 INFLUENZA VACCINE (#1) 2023 , 12/15/2019, 12/24/2018, Additional history exists DTAP/TDAP/TD IMMUNIZATION (4 - Td or Tdap) 04/13/2028 04/13/2018, 01/09/2012, 08/10/2007, Additional history exists TSH W/FREE T4 REFLEX Discontinued 12/31/2011, 10/22/2010, 05/30/2010, Additional history exists URINALYSIS Completed 12/31/2011 Pneumococcal [...] RANDOM URINE QUANTITATIVE Routine 04/12/2012 8:46 AM FUN HOUSE ATTENDANT Type 2 diabetes, HbA1C goal < 7% (H) 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 LIPID REFLEX TO DIRECT LDL PANEL Routine 04/12/2012 8:45 AM FUN HOUSE ATTENDANT Type 2 diabetes, HbA1C goal < 7% (H) 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 Hyperlipidemia LDL goal <100 COMPREHENSIVE METABOLIC PANEL Routine 04/12/2012 8:45 AM FUN HOUSE ATTENDANT Type 2 diabetes, HbA1C goal < 7% (H) 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 Hyperlipidemia LDL goal <100 HEMOGLOBIN A1C Routine 04/12/2012 8:45 AM FUN HOUSE ATTENDANT Type 2 diabetes, HbA1C goal < 7% [...] Microalbumin quantitative random urine (04/12/2012 8:46 AM FUN HOUSE ATTENDANT) Creatinine Urine 106 mg/dL [facility] Albumin Urine mg/L 20 mg/L [facility] Albumin Urine mg/g Cr 18.87 0 - 25 mg/g Cr [facility] Urine specimen (specimen) 04/12/2012 8:46 AM FUN HOUSE ATTENDANT 04/12/2012 8:47 AM FUN HOUSE ATTENDANT us Tiffany Leonard MD LAB - URINE ORDERABLES Fi nal Result [facility] [address] [place] [address] * (ABNORMAL) Lipid panel reflex to direct LDL (04/12/2012 8:45 AM FUN HOUSE ATTENDANT) Cholesterol 165 0 - 200 mg/dL [facility] Comment: LDL Cholesterol is the primary guide to therapy. The NCEP recommends further evaluation of: patients with cholesterol greater than 200 mg/dL if additional risk factors are present, cholesterol greater than 240 mg/dL, triglycerides greater than 150 mg/dL, or HDL less than 40 mg/dL. Triglycerides 253(H) 0 - 150 mg/dL [facility] HDL Cholesterol 36(L) 50 - 110 mg/dL [facility] LDL Cholesterol Calculated 79 0 - 129 mg/dL [facility] Comment: LDL Cholesterol is the primary guide to therapy: LDL-cholesterol goal in high risk patients is <100 mg/dL and in very high risk patients is <70 mg/dL. VLDL-Cholesterol 51(H) 0 - 30 mg/dL [facility] Cholesterol/HDL Ratio 4.6 0.0 - 5.0 [facility] Blood specimen (specimen) 04/12/2012 8:45 AM FUN HOUSE ATTENDANT 04/12/2012 8:46 AM FUN HOUSE ATTENDANT Tiffany Leonard MD LAB - BLOOD ORDERABLES Fi nal Result Performing Organization Address City/[facility]/ZIP Co de Phone Number [facility] [address] [place] [address] * Hemoglobin A1c (04/12/2012 8:45 AM FUN HOUSE ATTENDANT) Pathologist [facility] Hemoglobin A1C 5.7 4.3 - 6.0 % [facility] Blood specimen (specimen) 04/12/2012 8:45 AM FUN HOUSE ATTENDANT 04/12/2012 8:46 AM FUN HOUSE ATTENDANT us Tiffany Leonard MD LAB - BLOOD ORDERABLES Fi nal Result Performing Organization Address City/[facility]/ZIP Co de Phone Number [facility] [address] [place], [place] [phone] * (ABNORMAL) Comprehensive metabolic panel (04/12/2012 8:45 AM FUN HOUSE ATTENDANT) Sodium 139 133 - 144 mmol/L [facility] Potassium 3.9 3.4 - 5.3 mmol/L [facility] Chloride 100 94 - 109 mmol/L [facility] Carbon Dioxide 26 20 - 32 mmol/L [facility] Anion Gap 14 6 - 17 mmol/L [facility] Glucose 104(H) 60 - 99 mg/dL [facility] Urea Nitrogen 17 7 - 30 mg/dL [facility] Creatinine 0.61 0.52 - 1.04 mg/dL [facility] GFR Estimate >90 >60 mL/min/1.7 m2 [facility] GFR Estimate If Black >90 >60 mL/min/1.7 m2 [facility] Calcium 9.6 8.5 - 10.4 mg/dL [facility] Bilirubin Total 0.5 0.2 - 1.3 mg/dL [facility] Albumin 4.1 3.3 - 4.9 g/dL [facility] Comment:Reference range [facility] on 11/23/2007. Protein Total 7.4 6.8 - 8.8 g/dL [facility] Comment:As of 07, refer ence range reflects plasma specimen type. Alkaline Phosphatase 71 40 - 150 U/L [facility] ALT 18 0 - 50 U/L [facility] AST 19 0 - 45 U/L [facility] Blood specimen (specimen) 04/12/2012 8:45 AM FUN HOUSE ATTENDANT 04/12/2012 8:46 AM FUN HOUSE ATTENDANT us Tiffany Leonard MD LAB - BLOOD ORDERABLES Fi nal Result [facility] [address] [place] [address] * (ABNORMAL) *UA reflex to Microscopic and Culture (12/31/2011 9:30 AM CDT) Color Urine Yellow [facility] [place] Appearance Urine Clear [facility] Glucose Urine Negative NEG mg/dL [facility] Bilirubin Urine Negative NEG [facility] [place] Ketones Urine Negative NEG mg/dL [facility] Specific [place] Urine 1.025 1.003 - 1.035 [facility] Blood Urine Moderate(A) NEG [facility] pH Urine 5.0 5.0 - 7.0 pH [facility] Protein Albumin Urine Trace(A) NEG mg/dL [facility] Urobilinogen Urine 0.2 0.2 - 1.0 EU/dL [facility] Nitrite Urine Negative NEG [facility] Leukocyte Esterase Urine Trace(A) NEG [facility] Source Midstream Urine [facility] Urine specimen (specimen) 12/31/2011 9:30 AM CDT 12/31/2011 9:31 AM CDT us Tiffany Leonard MD LAB - URINE ORDERABLES Fi nal Result Performing Organization Address City/[facility]/ZIP Co de Phone Number [facility] [address] [place] [address] * TSH with free T4 reflex (12/31/2011 9:30 AM CDT) TSH 1.96 0.4 - 5.0 mU/L [facility] Blood specimen (specimen) 12/31/2011 9:30 AM CDT 12/31/2011 9:31 AM CDT us Tiffany Leonard MD LAB - BLOOD ORDERABLES Fi nal Result Performing Organization Address [facility] de Phone Number [facility] [address] [place] [address] * Mammo Screening digital left* (12/15/2011 9:54 [...] SKELETON (07/05/2008) Anatomical Region Laterality Modality Other us Tiffany Leonard MD SPECIAL IMAGING STUDIES F inal Result * COLONOSCOPY (08/22/2002) 08/22/2002 us Tiffany Leonard MD PROCEDURES Final Res ult from Last 3 Months or Most Recently Relevant to Health Maintenance Insurance / MEDICARE Care Teams Dog Day Care Attendant Relationship Specialty Start Date End Date Jr Landeros MD [address] [place] [address] PCP - General Internal Medicine 05/24/21 Jr Landeros MD [address] [place] [address] Assigned PCP 05/26/21
--- OUTSIDE RECORDS SUMMARY | 2024-01-27 11:43 | XMS_ITS | Encounter Summary ---
Author Organization [facility] Address [address] [place] [address] Care Team Providers Care Cloth Hauler Name Role Phone Tiffany Leonard MD Primary Care Provider [phone] Jr Landeros MD Primary Care Provider + Jr Landeros MD Unavailable [phone] Encounter Details Date Type Department Care Team [...] PM CDT Legal Sex Female 3:11 AM MOTOR POLARIZER Gender Identity Female 05/22/2021 3:03 PM CDT Sexual Orientation Straight 05/22/2021 3: 03 PM CDT documented as of this encounter Plan of Treatment Not on file documented as of this encounter Visit Diagnoses Not on filedocumented in this encounter Care Teams Cloth Hauler Relationship Specialty Start Date End Date Tiffany Leonard MD PCP - General 04/16/01 05/23/21 Jr Landeros MD [address] [place] [address] PCP - General Internal Medicine 05/24/21 Jr Landeros MD [address] [place] [address] Assigned PCP 05/26/21 documented as of this encounter
--- OUTSIDE RECORDS SUMMARY | 2024-01-27 11:43 | XMS_ITS | Encounter Summary ---
Author Organization [facility] Address [address] [place] [address]. [place] [address] Care Team Providers Care Attractions Associate Name Role Phone Tiffany Leonard MD Primary Care Provider Jr Landeros MD Primary Care Provider + Jr Landeros MD Unavailable [phone] Reason for Visit * Reason Onset Date Comments Refill Request 08/26/2010 Encounter Details Date Type Department Care Team (Late st Contact Info) Description 08/26/2010 MyC Refill [facility] [address] [place] [address] [place] [address] [place] [address] Refill Request Social History Tobacco Use Types Packs/Day Years Used Date Smoking Tobacco: Former Cigarettes Q uit: 05/14/1988 Alcohol Use Standard Drinks/Week Comments No 0 (1 standard drink = 0.6 oz pur e alcohol) Comments No Sex and Gender Information Value Date Recorded Sex Assigned at Female 05/22/2021 3:03 PM CDT Legal Sex Female 3:11 AM CHANNEL SALES MANAGER Gender Identity Female 05/22/2021 3:03 PM CDT Sexual Orientation Straight 05/22/2021 3: 03 PM CDT documented as of this encounter Plan of Treatment Not on file documented as of this encounter Visit Diagnoses Not on filedocumented in this encounter Care Teams Attractions Associate Relationship Specialty Start Date End Date Tiffany Leonard MD PCP - General 04/16/01 05/23/21 Jr Landeros MD [address] [place], [place] [id number] PCP - General Internal Medicine 05/24/21 Jr Landeros MD [address] [place], [place] [id number] Assigned PCP 05/26/21 documented as of this encounter
--- OUTSIDE RECORDS SUMMARY | 2024-01-27 11:43 | XMS_ITS | Encounter Summary ---
Author Organization [facility] Address [address] [place] [address]. [place] [address] Care Team Providers Care Machine Tester Name Role Phone Tiffany Leonard MD Primary Care Provider [phone] Jr Landeros MD Primary Care Provider + Jr Landeros MD Unavailable [phone] Reason for Visit * Reason Onset Date Comments Results 03/14/2011 mri Encounter Details Date Type Department Care Team (Late st Contact Info) Description 03/14/2011 [facility] [id number] [place] [address] [place] [address] [place] [address] Results (mri) Social History Tobacco Use Types Packs/Day Years Used Date Smoking Tobacco: Former Cigarettes Q uit: 05/14/1988 Alcohol Use Standard Drinks/Week Comments No 0 (1 standard drink = 0.6 oz pur e alcohol) Comments No Sex and Gender Information Value Date Recorded Sex Assigned at Female 05/22/2021 3:03 PM CDT Legal Sex Female 3:11 AM FIELD NATURALIST Gender Identity Female 05/22/2021 3:03 PM CDT Sexual Orientation Straight 05/22/2021 3: 03 PM CDT documented as of this encounter Miscellaneous Notes * Telephone Encounter - Rakel Varghese - 03/14/2011 11:25 AM CST See [employer] message below. Advised pt to greens picker and take to [facility]. Please call when we have received. Message to xray as reminder. Rakel Varghese RN D NATURALIST documented in this encounter Plan of Treatment Not on file documented as of this encounter Visit Diagnoses Not on filedocumented in this encounter Care Teams Machine Tester Relationship Specialty Start Date End Date Tiffany Leonard MD PCP - General 04/16/01 05/23/21 Jr Landeros MD [address] [place], [place] [address] PCP - General Internal Medicine 05/24/21 Jr Landeros MD [address] [place], [place] [address] Assigned PCP 05/26/21 documented as of this encounter
--- OUTSIDE RECORDS SUMMARY | 2024-01-27 11:43 | XMS_ITS | Encounter Summary ---
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 Gender Identity Female 05/22/2021 3:03 PM CDT Sexual Orientation Straight 05/22/2021 3: 03 PM CDT documented as of this encounter Plan of Treatment Not on file documented as of this encounter Visit Diagnoses Not on filedocumented in this encounter Care Teams Fulfillment Coordinator Relationship Specialty Start Date End Date Tiffany Leonard MD PCP - General 04/16/01 05/23/21 Jr Ladneros MD [address] [facility] [address] PCP - General Internal Medicine 05/24/21 Jr Landeros MD [address] [facility] [place] [address] Assigned PCP 05/26/21 documented as of this encounter
--- OUTSIDE RECORDS SUMMARY | 2024-01-27 11:43 | XMS_ITS | Encounter Summary ---
Author Organization [facility] Address [address] [place] [address] Care Team Providers Care Investment Banker Name Role Phone Tiffany Leonard MD Primary Care Provider [phone] Jr Landeros MD Primary Care Provider + Jr Landeros MD Unavailable [phone] Encounter Details Date Type Department Care Team (Late st Contact Info) Description 02/15/2013 [facility] [address] [address] [place] Adam Social History Tobacco Use Types Packs/Day Years Used Date Smoking Tobacco: Former Cigarettes Q uit: 05/14/1988 Smokeless Tobacco: Never Alcohol Use Standard Drinks/Week Comments No 0 (1 standard drink = 0.6 oz pur e alcohol) Comments No Sex and Gender Information Value Date Recorded Sex Assigned at Female 05/22/2021 3:03 PM CDT 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
--- OUTSIDE RECORDS SUMMARY | 2024-01-27 11:43 | XMS_ITS | Clinical Summary ---
Author Organization [facility] Address [place], [place] [address] Care Team Providers Care Cone Sewer Name Role Phone Pcp, No Unavailable Unavailable Gumaro Powell MD Primary Care Provider [phone] Allergies Active Allergy Reactions Criticality Noted Date [...] unspecified vessel or lesion type, unspecified whether big sandy or transplanted heart Place 1 tablet under the tongue every 5 minutes if needed for Chest Pain. 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 12/10/2022 Active Active Problems Problem Noted Date Diagnosed Date MULLER (dyspnea on exertion) 08/12/2018 Abnormal stress echocardiography 08/12/2018 Overview (08/12/2018): - stress echo 07/30/18:Post stress, normal left ventricular size, mildly decreased global systolic function with an estimated EF of 40 to 45%. Stage 2: Impost: Entire anterior septum, apical lateral segment, apical anterior segment, and apical inferior segment are abnormal. 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 Hyperlipidemia, unspecified 12/07/2015 Breast cancer 12/07/2015 Overview (12/07/2015): She underwent mastectomy in 1997 without chemo, and in 2003 underwent radiation and chemo. Heart disease 12/07/2015 Overview (08/12/2018): History of large WA in 1988, found to have LAD lesion. Has a family history of Father with WA, and bother with WA in his 20's. - 10/16: s/p NAY mLAD using wire escalation CTA [...] Comments Blood Pressure 153/80 04/23/2023 10:08 AM HIGH SPEED WARPER TENDER Pulse 52 04/23/2023 10:08 AM HIGH SPEED WARPER TENDER Temperature 35.9 C (96.6 F) 08/12/2018 10:45 AM CDT Respiratory Rate 19 08/12/2018 10:4 5 AM CDT Oxygen Saturation 97% 04/23/2023 10: 08 AM HIGH SPEED WARPER TENDER Inhaled Oxygen Concentration - - Weight 65.2 kg (143 lb 12.8 oz) 024 10:08 AM HIGH SPEED WARPER TENDER Height 165.1 cm (5' 5) 04/23/2023 10:0 8 AM HIGH SPEED WARPER TENDER Body Mass Index 23.93 04/23/2023 10:08 AM HIGH SPEED WARPER TENDER Plan of Treatment Health Maintenance Due Date Last Done Comments Pneumococcal series for age 65+ (1 of 2 - PCV) 09/29/1951 Tdap 1956 Depression screening for age 12+ 1957 Hepatitis C screening for ag e 18-79 09/29/1963 Tetanus booster 1965 Zoster (shingles) series for age 50+ (1 of 2) 09/29/1995 DEXA/DXA scan for age 65+ 2010 Medicare Wellness for age 65+ 2010 RSV vaccine for adults or (1 - 1-dose 75+ series) 2020 COVID-19 vaccine series ( season) 2023 11/29/2022, 09/05/2022, 12/10/2021, Additional history [...] Comments Code Status Discussion: Discussed Care Teams Cone Sewer Relationship Specialty Start Date End Date Gumaro Powell MD [address] [place] [address] PCP - General Family Practice 10/28/16 Pcp, No . 12/07/15
== END 2024-01-25 08:11 | disposition home or self-care (01) ==
LOC: NFLDREF 01-27 11:40
PROVIDERS: PCP Internal Medicine; Referring Provider Internal Medicine; Visit Provider Internal Medicine Nephrology
DX: E11.9 Type 2 diabetes mellitus without complications (principal); I10 Essential (primary) hypertension; N18.1 Chronic kidney disease, stage 1
CPT/HCPCS: 80061; 80069; 82043; 82570; 82728; 83540; 83550; 83970; 84450; 84460; 84550; 86140; 87086; 87186

== ENCOUNTER 2024-08-01 07:55 | Outpatient (CLI) | payer MEDICARE, OTHER, SELFPAY | END 2024-08-01 07:56 | disposition home or self-care (01) | LOC: NFLDREF 18:59 | PROVIDERS: PCP Internal Medicine; Referring Provider Internal Medicine; Visit Provider Internal Medicine Nephrology | DX: E11.22 Type 2 diabetes mellitus with diabetic chronic kidney disease (principal); I12.9 Hypertensive chronic kidney disease with stage 1 through stage 4 chronic kidney disease, or unspecified chronic kidney disease; N18.1 Chronic kidney disease, stage 1; E78.5 Hyperlipidemia, unspecified; R82.90 Unspecified abnormal findings in urine | CPT/HCPCS: 80061; 80069; 82043; 82570; 82728; 83540; 83550; 84450; 84460; 84550; 86140; 87086 ==

== ENCOUNTER 2024-09-01 08:05 | Outpatient (CLI) | payer MEDICARE, OTHER, SELFPAY | END 2024-09-01 08:06 | disposition home or self-care (01) | LOC: NFLDREF 09-06 03:49 | PROVIDERS: PCP Internal Medicine; Referring Provider Internal Medicine; Visit Provider Internal Medicine | DX: E11.9 Type 2 diabetes mellitus without complications (principal); M85.80 Other specified disorders of bone density and structure, unspecified site; N18.1 Chronic kidney disease, stage 1; I10 Essential (primary) hypertension | CPT/HCPCS: 80053; 80061; 82306 ==

== ENCOUNTER 2024-11-03 13:39 | Outpatient (CLI) | payer MEDICARE, OTHER, SELFPAY ==
--- NOTE | 2024-11-03 14:00 | CRLHL7_ITS ---
For Patients: As a result of the Century Cures Act, medical imaging exams and procedure reports are released immediately into your electronic medical record. You may view this report before your referring provider. If you have questions, please contact your health care provider. INDICATION: UNILATERAL LEFT SCREENING MAMMOGRAM, ASYMPTOMATIC 79 Y/O FEMALE COMPARISON: 09/23/2023, 06/23/2022, 06/10/2021 TECHNIQUE: Digital mammogram in CC and MLO projections including computer-aided detection (CAD) and tomosynthesis. BREAST COMPOSITION: There are scattered areas of fibroglandular density. FINDINGS: No suspicious findings. ASSESSMENT: BI-RADS 2 Benign RECOMMENDATION: Annual screening mammogram. A lay language report of this examination will be provided to the patient. Dictated by: Wero Becker MD @ 11/04/2024 09:03:31 (Electronically Signed)
== END 2024-11-03 13:40 | disposition home or self-care (01) ==
LOC: MAMMO 13:40
PROVIDERS: PCP Internal Medicine; Visit Provider Internal Medicine
DX: Z12.31 Encounter for screening mammogram for malignant neoplasm of breast (principal)
CPT/HCPCS: 77063; 77067